=== PATIENT | male | born 1965 | race Caucasian/White ===

== ENCOUNTER → 2016-10-15 | Outpatient (CLI) | payer OTHER ==
[~2016-10-15] MED LIST: ALBUAER INH; ASPI325T39 PO; EPIN1INJ33 IM; GABA1CAP4 PO; LOSA50TA6 PO; LPR25 PO; LPT/20 PO; MORP1TAB11 PO; NCDT14 TD; OMEP20CA9 PO; OXY/15 PO; PRED20TA PO; SPRIN/30 INH; VLM5CL PO; VTMB12100 PO
[2016-10-15 09:37] LABS: ALT/SGPT 33 U/L (12-78); BLOOD UREA NITROGEN 12 mg/dl (7-18); BUN/CREATININE RATIO 12.9 (10-20); CALCIUM 8.6 mg/dl (8.5-10.1); CARBON DIOXIDE 28 mmol/L (21-32); CHLORIDE 105 mmol/L (98-107); CHOLESTEROL 172 mg/dl (0-200); CREATININE 0.95 mg/dl (0.60-1.40); GLUCOSE 110 mg/dl (70-99); POTASSIUM 4.3 mmol/L (3.5-5.1); SODIUM 140 mmol/L (136-145); TRIGLYCERIDES 156 mg/dl (0-150); VERY LOW DENSITY LIPOPROT CALC 31 mg/dl
[2016-10-15 09:40] LABS: ALB/GLOB RATIO 1.1 (0.9-2); ALKALINE PHOSPHATASE 81 U/L (45-117); AST/SGOT 16 U/L (15-37); CHOLESTEROL/HDL RATIO 3.4; HDL CHOLESTEROL 51 mg/dl; LDL CHOLESTEROL CALCULATED 90 mg/dl
== END | disposition home or self-care (01) ==
LOC: C.LAB1850 07:51
PROVIDERS: ATTEND Nurse Practitioner
DX: E78.00 Pure hypercholesterolemia, unspecified (principal)

== ENCOUNTER 2016-10-24 10:08 | Inpatient (IN) | payer OTHER ==
[~2016-10-24] VITALS: Ht 172.7 cm; Wt 80.9 kg
[~2016-10-24 10:08] MED LIST changes: -ALBUAER INH; -ASPI325T39 PO; -LOSA50TA6 PO; -LPR25 PO; -NCDT14 TD; -PRED20TA PO
[2016-10-24] MEDS ORDERED: LOSA50TA6 PO (10:58)
[2016-10-24] MEDS ORDERED: ASPI325T39 PO (10:59)
[2016-10-24 11:20] LABS: HEMATOCRIT 41.4 % (42-52); MEAN CELL VOLUME 88.5 fL (80-100); MEAN CORPUSCULAR HEMOGLOBIN 30.6 pg (25-34); MEAN CORPUSCULAR HGB CONC 34.5 g/dl (32-36); MEAN PLATELET VOLUME 9.5 fL (7.4-10.4); PLATELET COUNT 287 K/uL (130-400); RED BLOOD COUNT 4.68 M/uL (4.7-6.1); WHITE BLOOD COUNT 10.49 K/uL (4.8-10.8)
[2016-10-24 11:30] LABS: INR 0.9 (0.9-1.1); PROTHROMBIN TIME (PATIENT) 9.8 SECONDS (9.0-12.0)
[2016-10-24 11:38] LABS: BUN/CREATININE RATIO 19.3 (10-20); CALCIUM 9.3 mg/dl (8.5-10.1); CREATININE 0.85 mg/dl (0.60-1.40); POTASSIUM 3.7 mmol/L (3.5-5.1)
[2016-10-24 11:42] LABS: ALB/GLOB RATIO 1.2 (0.9-2); CKMB/CK RATIO 0.9 (0-3.0)
--- NOTE | 2016-10-24 11:49 | DIAGNOSTIC IMAGING REPORT ---
SINGLE VIEW CHEST CLINICAL HISTORY: Atypical chest pain. Dyspnea. FINDINGS: An AP, portable, upright chest radiograph is compared to study dated 10/04/2015. The cardiomediastinal silhouette is unremarkable. Linear atelectasis is present in the left lower lung. No airspace consolidation or pleural effusion is identified. No pneumothorax is seen. The bony thorax is grossly intact. IMPRESSION: No acute cardiopulmonary abnormality. Electronically signed by: Rio Laurent M.D. 10/24/2016 11:47 AM Dictated Date/Time: 10/24/2016 11:46 AM
[2016-10-24] MEDS: NITROGLYCERIN 0.4 MG SL PER TAB CHARGE SL PRN ×2 (12:10→12:27)
--- NOTE | 2016-10-24 12:56 | EMERGENCY ROOM VISIT NOTE ---
History Report prepared by Abraham: Mendez Cerda Under the Supervision of: Dr. Xavier De La Garza M.D. First contact with patient: 11:56 Chief Complaint: CHEST PAIN Stated Complaint: CHEST PAIN/HIGH BP Nursing Triage Summary: Patient states having mid chest pain. States pain does not radiate anywhere. C/ o SOB that increases with exertion and productive cough. History of Present Illness The patient is a 51 year old male who presents to the Emergency Room with complaints of waxing and waning chest pain for the past month. He presented to the ED today because the discomfort was more severe and wouldn't go away today. He also notes that he broke out into cold sweats because of the discomfort. The patient describes the discomfort as tightness and pressure. He notes that sometimes he has a sharp pain that radiates into his jaw. The discomfort is worth with exertion. The patient has a history of myocardial infarction and hypertension. He also notes that he has had Nitroglycerin in the past and it has helped relieved similar symptoms that he is experiencing currently. The patient also notes that he has been having frequent headaches that starts at the back of his head and moves up the back of his head for the past month. He denies radiation to his arms. Source of History: patient Onset: for the past month Position: chest Quality: pressure, other (tightness) Timing: waxes/wanes Modifying Factors (Worsening): exertion Associated Symptoms: + headache Note: Other associated symptoms: radiation to jaw, cold sweats Denies: radiation to arms Review of Systems All systems have been listed, reviewed, and are negative other than those previously mentioned. Please see Additional Medical History Sheet. Past Medical & Surgical Medical Problems: (1) Back pain (2) Hypertension (3) Lumbar radiculopathy Surgical Problems: (1) H/O cardiac catheterization Family History Heart disease Hypertension Social History Smoking Status: Current Every Day Smoker Marital Status: Housing Status: lives with family Occupation Status: unemployed Current/Historical Medications Scheduled Atorvastatin (Atorvastatin Calcium), 20 MG PO HS Cyanocobalamin (Vitamin B-12), 100 MCG PO DAILY Gabapentin (Gabapentin), 900 MG PO TID Losartan Potassium (Cozaar), 50 MG PO DAILY Morphine Sulfate (Morphine Sulfate Er), 15 MG PO Q12 Omeprazole (Prilosec), 20 MG PO BID Scheduled PRN Diazepam (Diazepam), 5 MG PO Q8 PRN for Muscle Spasm Epinephrine (Auvi-Q), 0.3 MG IM UD PRN for ALLERGIC REACTION Oxycodone Hcl (Oxycodone Hcl), 15 MG PO Q6H PRN for Pain Tiotropium [place] (Spiriva Handihaler), 1 PUFF INH DAILY PRN for Shortness of Breath Miscellaneous Medications Aspirin (Aspirin Ec), 325 MG PO Allergies Coded Allergies: BEE STING (Verified Allergy, Severe, PASSES OUT, 10/24/16) Naproxen (Verified Allergy, Intermediate, SEVERE RASH, 10/24/16) Tramadol (Verified Adverse Reaction, Intermediate, GI SYMPTOMS, 10/24/16) Physical Exam Vital Signs Date Time Temp Pulse Resp B/P Pulse Ox O2 Delivery O2 Flow Rate FiO2 10/24/16 14:00 105 18 129/85 93 Room Air 10/24/16 13:52 101 10/24/16 13:15 96 Room Air 10/24/16 12:01 93 17 134/104 96 Room Air 10/24/16 11:12 91 20 91 Room Air 10/24/16 11:11 91 Room Air 10/24/16 10:55 91 10/24/16 10:50 91 Room Air 10/24/16 10:16 36.8 97 20 153/101 94 Room Air Physical Exam GENERAL: Patient awake, alert, oriented x 3. Patient follows commands. Patient does not appear toxic. Patient is adequately hydrated and well- nourished. SKIN: No erythema, pallor, cyanosis or rash HEENT: Normal head, pupils equal, reactive to light and accommodation. Ears normal. Oral cavity and posterior pharynx appear normal. Neck: Without adenopathy, no neck vein distention. LUNGS: Clear to auscultation bilaterally. HEART: Tachycardic, regular rate. normal s1 and s2, no murmurs. ABDOMEN: No masses, no rebound, no hepatomegaly or splenomegaly. Soft and nontender. EXTREMITIES: No signs of trauma. No pedal or pretibial edema. No calf or thigh tenderness. NEUROLOGIC: Cranial nerves II-XII within normal limits. No gross motor sensory function deficits. Medical Decision & Procedures ER Provider Diagnostic Interpretation: X ray results are stated below per my interpretation and the radiologist's interpretation. SINGLE VIEW CHEST CLINICAL HISTORY: Atypical chest pain. Dyspnea. FINDINGS: An AP, portable, upright chest radiograph is compared to study dated 10/04/2015. The cardiomediastinal silhouette is unremarkable. Linear atelectasis is present in the left lower lung. No airspace consolidation or pleural effusion is identified. No pneumothorax is seen. The bony thorax is grossly intact. IMPRESSION: No acute cardiopulmonary abnormality. Electronically signed by: Rio Laurent M.D. 10/24/2016 11:47 AM Dictated Date/Time: 10/24/2016 11:46 AM Laboratory Results 10/24/16 10:52 10/24/16 10:52 Test 10/24/16 10:52 10/24/16 12:36 Red Blood Count 4.68 M/uL (4.7-6.1) Mean Corpuscular Volume 88.5 fL (80-100) Mean Corpuscular Hemoglobin 30.6 pg (25-34) Mean Corpuscular Hemoglobin Concent 34.5 g/dl (32-36) RDW Standard Deviation 41.9 fL (36.4-46.3) RDW Coefficient of Variation 13.0 % (11.5-14.5) Mean Platelet Volume 9.5 fL (7.4-10.4) Prothrombin Time 9.8 SECONDS (9.0-12.0) Prothromb Time International Ratio 0.9 (0.9-1.1) Activated Partial Thromboplast Time 27.1 SECONDS (21.0-31.0) Partial Thromboplastin Ratio 1.0 Anion Gap 11.0 mmol/L (3-11) Est Creatinine Clear Calc Drug Dose 106.5 ml/min Estimated GFR () 115.3 Estimated GFR (Non- 99.5 BUN/Creatinine Ratio 19.3 (10-20) Calcium Level 9.3 mg/dl (8.5-10.1) Total Bilirubin 0.3 mg/dl (0.2-1) Aspartate Amino Transf (AST/SGOT) 18 U/L (15-37) Alanine Aminotransferase (ALT/SGPT) 29 U/L (12-78) Alkaline Phosphatase 88 U/L (45-117) Total Creatine Kinase 78 U/L (39-308) Creatine Kinase MB 0.7 ng/ml (0.5-3.6) Creatine Kinase MB Ratio 0.9 (0-3.0) Total Protein 7.4 gm/dl (6.4-8.2) Albumin 4.0 gm/dl (3.4-5.0) Globulin 3.4 gm/dl (2.5-4.0) Albumin/Globulin Ratio 1.2 (0.9-2) Bedside Troponin I 0.010 ng/ml (0-0.045) Laboratory results as stated above per my review. Medications Administered Medications (Trade) Dose Ordered Sig/Susana Route Start Time Stop Time Status Last Admin Dose Admin Nitroglycerin (Nitrostat Tab) 0.4 mg PRN PRN SL 10/24/16 12:00 11/23/16 11:59 10/24/16 12:27 0.4 MG Nitroglycerin (Nitroglycerin 2% Oint) 2 inch Q6H EXT 10/24/16 13:00 11/23/16 12:59 10/24/16 13:24 2 INCH Heparin Sodium/ Dextrose (Heparin 25,000 Unit/500ml D5W) 25,000 unit STK-MED ONCE .ROUTE 10/24/16 14:21 10/24/16 14:23 DC 10/24/16 14:29 25,000 UNIT Heparin Sodium (Porcine) (Heparin Sq 5000 Unit/0.5ml) 10,000 unit STK-MED ONCE .ROUTE 10/24/16 14:22 10/24/16 14:23 DC 10/24/16 14:26 6,000 UNIT ECG Indication: chest pain Rate (beats per minute): 94 Rhythm: normal sinus Findings: no acute ischemic change, no ectopy ED Course 1156: Past medical records reviewed. The patient was evaluated in room C8. A complete history and physical examination was performed. 1200: Ordered Nitroglycerin 0.4 mg SL/Chest Pain. 1230: At this time, I reevaluated the patient and he was feeling better after having the medication. 1300: Ordered Nitroglycerin 2 inch EXT. 1257: At this time, I discussed the patient's case with Dr. Mccauley- Hospitalist [facility] and he agreed to accept the patient for further evaluation. Medical Decision I considered multiple diagnoses including myocardial infarction, chest wall pain , pericarditis, myocarditis, aortic emergencies, pulmonary embolism, congestive heart failure, GI causes, and other significant cardiopulmonary disorders. The patient is a prior history of myocardial infarction. He is now here with substernal chest pain radiating to his right jaw. This seems to be related to exertion. He got some relief with nitroglycerin. The patient was given additional nitroglycerin here. Multiple labs, EKG and imaging were obtained. I discussed care with the patient and with the hospitalist. The patient will require further evaluation in the hospital. Consults Time Called: 1252 Consulting Physician: Dr. Mccauley- Hospitalist [facility] [place] Returned Call: [phone] At this time, I discussed the patient's case with Dr. Mccauley and he agreed to accept the patient for further evaluation. Impression Primary Impression: Acute coronary syndrome Scribe Attestation The scribe's documentation has been prepared under my direction and personally reviewed by me in its entirety. I confirm that the note above accurately reflects all work, treatment, procedures, and medical decision making performed by me. Departure Information Dispostion Being Evaluated By Hospitalist Referrals Mansoor Zhao M.D. (PCP)
[2016-10-24] MEDS ORDERED: NITROGLYCERIN OINT 2% 1GM PACKET EXT SCH (13:00)
[2016-10-24 13:15] VITALS: BP 100/64; PULSE 98; TEMP 36.6; O2SAT 96; Ht 172.7 cm; Wt 80.9 kg
[2016-10-24] MEDS ORDERED: NITROGLYCERIN OINT 2% 1GM PACKET ONE (13:21)
[2016-10-24] MEDS ORDERED: HEPARIN SOD 5000 UNIT/0.5 ML CARP SQ SCH (14:00)
[2016-10-24] MEDS: GABAPENTIN 300 MG CAP PO SCH ×2 (14:00→20:54)
[2016-10-24] MEDS ORDERED: ACETAMINOPHEN 325 MG TAB PO PRN (14:00)
[2016-10-24] MEDS ORDERED: TIOTROPIUM BROMIDE 5 PUFF/90 MCG INH INH PRN (14:00)
[2016-10-24] MEDS ORDERED: POLYETHYLENE (MIRALAX) 17 GM PACK PO PRN (14:00)
[2016-10-24] MEDS ORDERED: ONDANSETRON INJ 2 MG/ML 2 ML VIAL IV PRN (14:00)
[2016-10-24] MEDS ORDERED: MoRPHine SULFATE 2 MG/ML CARP IV PRN (14:00)
[2016-10-24] MEDS ORDERED: HEPARIN 25000 UNIT/500 ML D5W ONE (14:21)
[2016-10-24] MEDS ORDERED: HEPARIN SOD 5000 UNIT/0.5 ML CARP ONE (14:22)
--- NOTE | 2016-10-24 14:39 | History and Physical ---
History & Physical Date & Time of Service: Oct 24, 2016 at 13:07 Chief Complaint: Chest Pain/High Bp Primary Care Physician: Mansoor Zhao M.D. History of Present Illness Source: patient This is a 51 yo M with PMHx HTN, hyperlipidemia, supraventricular tachycardia, N -STEMI COPD, GERD, diverticulosis,insomnia, SAUL, s/p C3-C6 laminectomy by Dr. Metcalf in January 2016 who presents with chest pain which started at 0300 once he was awake. Pt woke up this early to take his to work. He reports while driving home he developed chest pain, substernally which was sharp and constant in nature, radiating to the right side of his jaw. He took a full dose aspirin and his other medications, and pain only slightly resolved. 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 The patient presented to the ED after pain did not resolve. He has a strong family history of cardiac events; father at age 37 from [place] , he had two uncles who both of [place], one in early 40s and the other in his early 60s. His brother has had 5 heart attacks, still living, and is two years older than him. He smokes 3/4 pack per day for 30 years and previously chewed tobacco. He denies exercising at all. In the ED pt received 2" nitropaste, troponin 1st set was negative, EKG was done and was in NSR without ST or ischemic changes. Past Medical/Surgical History Medical Problems: (1) Back pain Status: Chronic (2) Hypertension Status: Chronic (3) Lumbar radiculopathy Status: Resolved Surgical Problems: (1) H/O cardiac catheterization Status: Chronic Family History Heart disease Hypertension Social History Smoking Status: Current Every Day Smoker Smokeless Tobacco Use: Yes Alcohol Use: none Drug Use: none Marital Status: Housing status: lives with family Occupational Status: unemployed Immunizations History of Influenza Vaccine: Yes History of Tetanus Vaccine?: Yes Tetanus Immunization Date: Apr 05, 2006 History of Pneumococcal: Yes History of Hepatitis B Vaccine: No Multi-Drug Resistant Organisms History of MDRO: No Allergies Coded Allergies: BEE STING (Verified Allergy, Severe, PASSES OUT, 10/24/16) Naproxen (Verified Allergy, Intermediate, SEVERE RASH, 10/24/16) Tramadol (Verified Adverse Reaction, Intermediate, GI SYMPTOMS, 10/24/16) Home Medications Scheduled Atorvastatin (Atorvastatin Calcium), 20 MG PO HS Cyanocobalamin (Vitamin B-12), 100 MCG PO DAILY Gabapentin (Gabapentin), 900 MG PO TID Losartan Potassium (Cozaar), 50 MG PO DAILY Morphine Sulfate (Morphine Sulfate Er), 15 MG PO Q12 Omeprazole (Prilosec), 20 MG PO BID Scheduled PRN Diazepam (Diazepam), 5 MG PO Q8 PRN for Muscle Spasm Epinephrine (Auvi-Q), 0.3 MG IM UD PRN for ALLERGIC REACTION Oxycodone Hcl (Oxycodone Hcl), 15 MG PO Q6H PRN for Pain Tiotropium [place] (Spiriva Handihaler), 1 PUFF INH DAILY PRN for Shortness of Breath Miscellaneous Medications Aspirin (Aspirin Ec), 325 MG PO Review of Systems Chronic Back Pain, lumbar and cervical Constitutional: No chills, No fever, No sweats Eyes: No diplopia ENT: No sore throat, No tinnitus Respiratory: + cough, + dyspnea on exertion, No dyspnea at rest, No sputum Cardiovascular: + chest pain, + problem reported (Hx prolapsed mitral valve), No palpitations Abdomen: No constipation, No diarrhea, No nausea, No pain, No vomiting Musculoskeletal: No calf pain, No joint pain, No muscle pain Genitourinary - Male: No dysuria Endocrine: No fatigue Integumentary: No itch, No rash Allergic / Immunologic: + problem reported (Previous NC was induced secondary to epinephrine IV because of bee sting(anaphalactic rx) he sustained in 2013) Physical Exam Vital Signs Date Time Temp Pulse Resp B/P Pulse Ox O2 Delivery O2 Flow Rate FiO2 10/24/16 12:01 93 17 134/104 96 Room Air 10/24/16 11:12 91 20 91 Room Air 10/24/16 11:11 91 Room Air 10/24/16 10:55 91 10/24/16 10:50 91 Room Air 10/24/16 10:16 36.8 97 20 153/101 94 Room Air General Appearance: WD/WN, no apparent distress, + pertinent finding (smells of tobacco smoke) Head: normocephalic, atraumatic Eyes: PERRL, EOMI ENT: hearing grossly normal, pharynx normal Neck: supple, no JVD, no carotid bruits Respiratory/Chest: chest non-tender, no respiratory distress, no accessory muscle use, + pertinent finding (+ expiratory wheezing, +tight breath sounds throughout. No rhales or rhonchi.) Cardiovascular: no JVD, normal peripheral pulses, + tachycardia Abdomen/GI: normal bowel sounds, non tender, soft Back: no muscle spasm, + pertinent finding (scar over cervical vertebrae, no point tenderness. ) Extremities/Musculoskelatal: no calf tenderness, no pedal edema Neurologic/Psych: alert, normal mood/affect, oriented x 3 Skin: normal color, warm/dry Diagnostics Laboratory Results Results Past 24 Hours Test 10/24/16 10:52 10/24/16 11:20 10/24/16 12:36 Range/Units White Blood Count 10.49 4.8-10.8 K/uL Red Blood Count 4.68 4.7-6.1 M/uL Hemoglobin 14.3 14.0-18.0 g/dL Hematocrit 41.4 42-52 % Mean Corpuscular Volume 88.5 80-100 fL Mean Corpuscular Hemoglobin 30.6 25-34 pg Mean Corpuscular Hemoglobin Concent 34.5 32-36 g/dl RDW Standard Deviation 41.9 36.4-46.3 fL RDW Coefficient of Variation 13.0 11.5-14.5 % Platelet Count 287 130-400 K/uL Mean Platelet Volume 9.5 7.4-10.4 fL Prothrombin Time 9.8 9.0-12.0 SECONDS Prothromb Time International Ratio 0.9 0.9-1.1 Activated Partial Thromboplast Time 27.1 21.0-31.0 SECONDS Partial Thromboplastin Ratio 1.0 Sodium Level 142 136-145 mmol/L Potassium Level 3.7 3.5-5.1 mmol/L Chloride Level 107 98-107 mmol/L Carbon Dioxide Level 24 21-32 mmol/L Anion Gap 11.0 3-11 mmol/L Blood Urea Nitrogen 16 7-18 mg/dl Creatinine 0.85 0.60-1.40 mg/dl Est Creatinine Clear Calc Drug Dose 106.5 ml/min Estimated GFR () 115.3 Estimated GFR (Non- 99.5 BUN/Creatinine Ratio 19.3 10-20 Random Glucose 84 70-99 mg/dl Calcium Level 9.3 8.5-10.1 mg/dl Total Bilirubin 0.3 0.2-1 mg/dl Aspartate Amino Transf (AST/SGOT) 18 15-37 U/L Alanine Aminotransferase (ALT/SGPT) 29 12-78 U/L Alkaline Phosphatase 88 45-117 U/L Total Creatine Kinase 78 39-308 U/L Creatine Kinase MB 0.7 0.5-3.6 ng/ml Creatine Kinase MB Ratio 0.9 0-3.0 Total Protein 7.4 6.4-8.2 gm/dl Albumin 4.0 3.4-5.0 gm/dl Globulin 3.4 2.5-4.0 gm/dl Albumin/Globulin Ratio 1.2 0.9-2 Bedside Troponin I 0.010 0.010 0-0.045 ng/ml Diagnostic Radiology SINGLE VIEW CHEST CLINICAL HISTORY: Atypical chest pain. Dyspnea. FINDINGS: An AP, portable, upright chest radiograph is compared to study dated 10/04/2015. The cardiomediastinal silhouette is unremarkable. Linear atelectasis is present in the left lower lung. No airspace consolidation or pleural effusion is identified. No pneumothorax is seen. The bony thorax is grossly intact. IMPRESSION: No acute cardiopulmonary abnormality. Electronically signed by: Rio Laurent M.D. 10/24/2016 11:47 AM Dictated Date/Time: 10/24/2016 11:46 AM CXR normal EKG EKG normal without ST wave inversions or ischemic changes.: Vent. rate 94 BPM WA interval 154 ms QRS duration 110 ms QT/QTc 370/462 ms P-R-T axes 32 41 42 Impression Assessment and Plan This is a 51 yo M with PMHx HTN, hyperlipidemia, supraventricular tachycardia, N -STEMI COPD, GERD, diverticulosis,insomnia, SAUL, s/p C3-C6 laminectomy by Dr. Metcalf in January 2016 who presents with chest pain which started at 0300. Chest pain, HTN, Previous NSTEMI 2013, congenital prolapsed mitral valve - Admit to telemetry - Consulted cardiology for recommendations - planned for cardiac cath tomorrow, NPO after 2400 except meds - Trend troponin and CKMB - 1 set was negative- next draw scheduled at 2029, then will obtain with morning labs tomorrow. 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 Y/N: Yes Given or contraindicated: Other Anticoagulation, T.E.D. Stockings Reviewed: Pt Seen/Exam by Me, RN Notes, HO Notes, Prior Records, Labs History I agree with PA H&P with some modifications as below a 51 yo M with PMHx HTN, hyperlipidemia, supraventricular tachycardia, N-STEMI COPD, GERD, diverticulosis,insomnia, SAUL, s/p C3-C6 laminectomy by Dr. Metcalf in January 2016 who presents with chest pain which started at 0300 and only relieved with 2 SL nitros. Fam Hx: father [place] at 35 yo. Constitutional: denies: chills EENTM: denies: tearing Cardiovascular: denies chest pain Genitourinary: negative discharge Musculoskeletal: negative: back pain Skin: negative: change in color Neurological/Psych: negative: anxiety Hematologic/Lymphatic: negative: anemia General Appearance: WD/WN, no apparent distress Eye Exam: bilateral eye normal inspection Ears, Nose, Throat: hearing grossly normal, pharynx normal Neck: non-tender, supple Respiratory: chest non-tender, lungs clear, respiratory distress Cardiovascular: normal peripheral pulses, no gallop Gastrointestinal: normal bowel sounds, soft Extremities: normal range of motion, no pedal edema Neurologic/Psychiatric: alert, normal mood/affect Skin Characteristics: normal color Assessment/Plan a 51 yo M with PMHx HTN, hyperlipidemia, supraventricular tachycardia, N-STEMI COPD, GERD, diverticulosis,insomnia, SAUL, s/p C3-C6 laminectomy by Dr. Metcalf in January 2016 who presents with chest pain which started at 0300. Chest pain, angina HTN, Previous NSTEMI 2013, congenital prolapsed mitral valve agree with telemetry Consulted cardiology for recommendations - planned for cardiac cath tomorrow, NPO after 2400 except meds check troponin and CKMB - 1 set was negative- next draw scheduled at 2029, then will obtain with morning labs tomorrow. 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
[2016-10-24] MEDS: METOPROLOL TARTRATE 25 MG TAB PO SCH ×2 (16:36→20:54)
[2016-10-24] MEDS: NICOTINE 14 MG/24 HR TDSY TD SCH (18:58)
[2016-10-24] MEDS: OXYCODONE HCL IR 5 MG TAB (IMMEDIATE RELEASE) PO PRN (18:58)
[2016-10-24 19:50] VITALS: BP 103/61; PULSE 80; TEMP 36.6; O2SAT 92
[2016-10-24 20:00] VITALS: O2SAT 92
[2016-10-24] MEDS: MoRPHine SULFATE CR 15 MG TAB (MS CONTIN) PO SCH (20:53)
[2016-10-24] MEDS: PANTOprazole SOD 40 MG TAB PO SCH (20:54)
[2016-10-24] MEDS: ATORVASTATIN 20 MG TAB PO SCH (20:54)
[2016-10-24 21:23] LABS: PARTIAL THROMBOPLASTIN RATIO 1.7
[2016-10-24] MEDS: HEPARIN 25,000 UNIT/500ML D5W 500 ML IV PRN (21:44)
[2016-10-24] MEDS ORDERED: HEPARIN IV BOLUS 3,000 UNIT in SYRINGE 0 ML IV STA (22:03)
[2016-10-24 23:59] VITALS: O2SAT 92
[2016-10-25] VITALS (12 sets, daily range): BP systolic 100–145; BP diastolic 61–91; PULSE 74–100; TEMP 36.4–37.1; O2SAT 90–94
[2016-10-25] MEDS: NITROGLYCERIN 0.4 MG SL PER TAB CHARGE SL PRN ×2 (00:05→00:29)
[2016-10-25] MEDS ORDERED: NURSING VERBAL MED ORDER ONE ×2 (00:30→11:00)
[2016-10-25] MEDS ORDERED: NITROGLYCERIN OINT 2% 1GM PACKET EXT STA (00:32)
[2016-10-25 03:58] LABS: BASO % 0.3 %; BASO ABS # 0.04 K/uL (0-0.2); COMPLETE YES; EOS % 5.3 %; HEMATOCRIT 39.8 % (42-52); IG% 0.3 %; LYMPH % 38.2 %; LYMPH ABS # 4.42 K/uL (1.2-3.4); MEAN CELL VOLUME 89.8 fL (80-100); MEAN CORPUSCULAR HEMOGLOBIN 30.7 pg (25-34); MEAN CORPUSCULAR HGB CONC 34.2 g/dl (32-36); MEAN PLATELET VOLUME 9.4 fL (7.4-10.4); MONO % 7.9 %; PLATELET COUNT 266 K/uL (130-400); RED BLOOD COUNT 4.43 M/uL (4.7-6.1); WHITE BLOOD COUNT 11.58 K/uL (4.8-10.8)
[2016-10-25 04:15] LABS: BLOOD UREA NITROGEN 22 mg/dl (7-18); BUN/CREATININE RATIO 19.8 (10-20); CALCIUM 8.6 mg/dl (8.5-10.1); CARBON DIOXIDE 26 mmol/L (21-32); CHLORIDE 107 mmol/L (98-107); GLUCOSE 109 mg/dl (70-99); POTASSIUM 4.1 mmol/L (3.5-5.1); SODIUM 142 mmol/L (136-145)
[2016-10-25 04:17] LABS: PARTIAL THROMBOPLASTIN RATIO 1.9
[2016-10-25 04:20] LABS: CHOLESTEROL 144 mg/dl (0-200); CHOLESTEROL/HDL RATIO 2.9; HDL CHOLESTEROL 49 mg/dl; LDL CHOLESTEROL CALCULATED 67 mg/dl; TRIGLYCERIDES 139 mg/dl (0-150); VERY LOW DENSITY LIPOPROT CALC 28 mg/dl
[2016-10-25] MEDS: HEPARIN 25,000 UNIT/500ML D5W 500 ML IV PRN (04:33)
[2016-10-25] MEDS: OXYCODONE HCL IR 5 MG TAB (IMMEDIATE RELEASE) PO PRN ×3 (05:36→18:38)
[2016-10-25] MEDS: NITROGLYCERIN OINT 2% 1GM PACKET EXT SCH ×3 (05:39→18:45)
[2016-10-25] MEDS: PANTOprazole SOD 40 MG TAB PO SCH ×2 (08:27→21:18)
[2016-10-25] MEDS: LOSARTAN POTASSIUM 50 MG TAB PO SCH (08:28)
[2016-10-25] MEDS: METOPROLOL TARTRATE 25 MG TAB PO SCH ×2 (08:28→21:16)
[2016-10-25] MEDS: ASPIRIN 325 MG ECTAB PO SCH (08:28)
[2016-10-25] MEDS: GABAPENTIN 300 MG CAP PO SCH ×3 (08:29→21:16)
[2016-10-25] MEDS: MoRPHine SULFATE CR 15 MG TAB (MS CONTIN) PO SCH ×2 (08:34→21:16)
--- NOTE | 2016-10-25 10:53 | Hospitalist Progress Note ---
Hospitalist Progress Note Date of Service Oct 25, 2016. (Charmaine Jenkins PA-C) 10/25/16 agree with PA note patient went to stress test this am (Abdirashid Mccauley MD) Subjective Pt evaluation today including: conversation w/ patient, physical exam, chart review, lab review, review of studies, review of inpatient medication list Pain: None PO Intake: NPO Voiding: no voiding problems Pt was seen and examined this morning. His and mother are at bedside this morning. He is doing ok, appears slightly anxious. He denies chest pain, shortness of breath, palpitations, lighteadedness or dizziness overnight. He has not been up walking around much so is unsure if he becomes sob on exertion. Plan for cardiac cath today. Constitutional: No chills, No fever, No sweats Eyes: No diplopia ENT: No nasal symptoms, No sore throat Respiratory: No cough, No shortness of breath, No wheezing Cardiovascular: No chest pain, No edema, No orthopnea, No palpitations Abdomen: No constipation, No diarrhea, No nausea, No pain, No vomiting Musculoskeletal: No calf pain, No joint pain, No swelling Neurologic: No numbness/tingling, No weakness Endo: No fatigue Skin: No rash (Charmaine Jenkins PA-C) Pt evaluation today including: conversation w/ patient, physical exam, chart review, review of studies, review of inpatient medication list Constitutional: No fever ENT: No hearing loss Respiratory: + dyspnea on exertion, No cough Cardiovascular: No chest pain Abdomen: No pain Male : No dysuria Neurologic: No memory loss Psychiatric: No depression symptoms Endo: No fatigue (Abdirashid Mccauley MD) Objective Vital Signs Date Time Temp Pulse Resp B/P Pulse Ox O2 Delivery O2 Flow Rate FiO2 10/25/16 05:41 36.9 85 19 114/66 94 Nasal Cannula 2.0 10/25/16 04:36 36.9 85 19 114/66 94 Nasal Cannula 2.0 10/25/16 04:00 92 Room Air 10/25/16 00:00 36.7 83 19 120/65 93 Nasal Cannula 2.0 10/24/16 23:59 92 Room Air 10/24/16 20:00 92 Room Air 10/24/16 19:50 36.6 80 18 103/61 92 Room Air 10/24/16 16:30 110 20 127/69 98 Room Air 10/24/16 14:00 105 18 129/85 93 Room Air 10/24/16 13:52 101 10/24/16 13:15 36.6 98 16 100/64 96 Room Air 10/24/16 12:01 93 17 134/104 96 Room Air 10/24/16 11:12 91 20 91 Room Air 10/24/16 11:11 91 Room Air 10/24/16 10:55 91 10/24/16 10:50 91 Room Air 10/24/16 10:16 36.8 97 20 153/101 94 Room Air (Charmaine Jenkins PA-C) Physical Exam General Appearance: WD/WN, no apparent distress Eyes: PERRL, EOMI ENT: hearing grossly normal, pharynx normal Neck: no JVD Respiratory/Chest: chest non-tender, no respiratory distress, no accessory muscle use, + wheezing (expiratory and inspiratory throughout) Cardiovascular: regular rate, rhythm, no murmur Abdomen: normal bowel sounds, non tender, soft Extremities: no pedal edema, no calf tenderness Neurologic/Psychiatric: alert, normal mood/affect, oriented x 3 Skin: normal color, warm/dry (Charmaine Jenkins PA-C) General Appearance: WD/WN, no apparent distress Eyes: normal inspection, EOMI ENT: hearing grossly normal, pharynx normal Neck: supple Respiratory/Chest: chest non-tender, + wheezing Cardiovascular: regular rate, rhythm, no gallop Abdomen: normal bowel sounds, soft Extremities: non-tender, normal inspection Neurologic/Psychiatric: no motor/sensory deficits, alert, normal mood/affect (Abdirashid Mccauley MD) Laboratory Results Last 24 Hours Test 10/24/16 10:52 10/24/16 11:20 10/24/16 12:36 10/24/16 20:30 White Blood Count 10.49 K/uL Red Blood Count 4.68 M/uL Hemoglobin 14.3 g/dL Hematocrit 41.4 % Mean Corpuscular Volume 88.5 fL Mean Corpuscular Hemoglobin 30.6 pg Mean Corpuscular Hemoglobin Concent 34.5 g/dl RDW Standard Deviation 41.9 fL RDW Coefficient of Variation 13.0 % Platelet Count 287 K/uL Mean Platelet Volume 9.5 fL Prothrombin Time 9.8 SECONDS Prothromb Time International Ratio 0.9 Activated Partial Thromboplast Time 27.1 SECONDS Partial Thromboplastin Ratio 1.0 Sodium Level 142 mmol/L Potassium Level 3.7 mmol/L Chloride Level 107 mmol/L Carbon Dioxide Level 24 mmol/L Anion Gap 11.0 mmol/L Blood Urea Nitrogen 16 mg/dl Creatinine 0.85 mg/dl Est Creatinine Clear Calc Drug Dose 106.5 ml/min Estimated GFR () 115.3 Estimated GFR (Non- 99.5 BUN/Creatinine Ratio 19.3 Random Glucose 84 mg/dl Calcium Level 9.3 mg/dl Total Bilirubin 0.3 mg/dl Aspartate Amino Transf (AST/SGOT) 18 U/L Alanine Aminotransferase (ALT/SGPT) 29 U/L Alkaline Phosphatase 88 U/L Total Creatine Kinase 78 U/L Creatine Kinase MB 0.7 ng/ml Creatine Kinase MB Ratio 0.9 Total Protein 7.4 gm/dl Albumin 4.0 gm/dl Globulin 3.4 gm/dl Albumin/Globulin Ratio 1.2 Bedside Troponin I 0.010 ng/ml 0.010 ng/ml Test 10/24/16 20:35 10/25/16 03:44 Activated Partial Thromboplast Time 43.6 SECONDS 49.3 SECONDS Partial Thromboplastin Ratio 1.7 1.9 Creatine Kinase MB 0.6 ng/ml 0.5 ng/ml Troponin I < 0.015 ng/ml < 0.015 ng/ml White Blood Count 11.58 K/uL Red Blood Count 4.43 M/uL Hemoglobin 13.6 g/dL Hematocrit 39.8 % Mean Corpuscular Volume 89.8 fL Mean Corpuscular Hemoglobin 30.7 pg Mean Corpuscular Hemoglobin Concent 34.2 g/dl Platelet Count 266 K/uL Mean Platelet Volume 9.4 fL Neutrophils (%) (Auto) 48.0 % Lymphocytes (%) (Auto) 38.2 % Monocytes (%) (Auto) 7.9 % Eosinophils (%) (Auto) 5.3 % Basophils (%) (Auto) 0.3 % Neutrophils # (Auto) 5.55 K/uL Lymphocytes # (Auto) 4.42 K/uL Monocytes # (Auto) 0.92 K/uL Eosinophils # (Auto) 0.61 K/uL Basophils # (Auto) 0.04 K/uL RDW Standard Deviation 43.7 fL RDW Coefficient of Variation 13.3 % Immature Granulocyte % (Auto) 0.3 % Immature Granulocyte # (Auto) 0.04 K/uL Sodium Level 142 mmol/L Potassium Level 4.1 mmol/L Chloride Level 107 mmol/L Carbon Dioxide Level 26 mmol/L Anion Gap 9.0 mmol/L Blood Urea Nitrogen 22 mg/dl Creatinine 1.10 mg/dl Est Creatinine Clear Calc Drug Dose 82.3 ml/min Estimated GFR () 88.4 Estimated GFR (Non- 76.2 BUN/Creatinine Ratio 19.8 Random Glucose 109 mg/dl Calcium Level 8.6 mg/dl Creatine Kinase MB Ratio Triglycerides Level 139 mg/dl Cholesterol Level 144 mg/dl HDL Cholesterol 49 mg/dl LDL Cholesterol, Calculated 67 mg/dl VLDL Cholesterol, Calculated 28 mg/dl Cholesterol/HDL Ratio 2.9 (Charmaine Jenkins, PAJackyC) Assessment and Plan This is a 51 yo M with PMHx HTN, hyperlipidemia, supraventricular tachycardia, N -STEMI COPD, GERD, diverticulosis,insomnia, SAUL, s/p C3-C6 laminectomy by Dr. Metcalf in January 2016 who presents with chest pain which started at 0300. Chest pain HTN, Previous NSTEMI 2013, congenital prolapsed mitral valve - Admit to telemetry - Consulted cardiology for recommendations - planned for cardiac cath today, NPO after 2400 except meds - Trend troponin and CKMB - consecutive sets were all negative - Cont heparin gtt with bolus - Nitro past 2" applied in the ED, cont prn - Last stress test was done in December 2014 which was normal - ECHO completed this morning- awaiting results. - Morphine sulfate IV prn chest pain - Continue metoprolol 12.5 BID - worked well to reduce BP and HR. 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 Metcalf in January 2016 who presents with chest pain which started at 0300. 1. Chest pain with hx HTN, Previous NSTEMI 2013, congenital prolapsed mitral valve, likely secondary to pulmonary causes (smoking, COPD) troponin and CKMB are normal, consecutive sets were all negative stress test and echo done today and were unremarkable, no cardiac cath is planned stop heparin gtt with bolus Nitro past 2" applied in the ED, cont prn Last stress test was done in December 2014 which was normal Morphine sulfate IV prn chest pain Continue metoprolol 12.5 BID - worked well to reduce BP and HR. Continue losartan at this time 2. 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
[2016-10-25] MEDS ORDERED: ALBUT/IPRATROP 3MG/0.5MG NEB 3 ML VIAL INH PRN (12:00)
[2016-10-25] MEDS ORDERED: ATROPINE SULFATE 0.1 MG/ML 5ML SYR ONE (12:46)
[2016-10-25] MEDS ORDERED: METOPROLOL TARTRATE 1 MG/ML VIAL ONE (12:46)
[2016-10-25] MEDS ORDERED: DOBUTamine HCL 12.5 MG/ML 20 ML VIAL ONE (12:46)
--- NOTE | 2016-10-25 13:01 | ECHOCARDIOGRAM REPORT ---
*NOTICE TO RECEIVING [employer] This information is strictly Confidential and protected under [place] law. [place] law prohibits you from making any further disclosure of this information unless further disclosure is expressly permitted by the written consent of the person to whom it pertains or is authorized by law. A general authorization for the release of medical or other information is not sufficient for this purpose. Hospital accepts no responsibility if the information is made available to any other person, INCLUDING THE PATIENT. Interpretation Summary * Name: LUCIAN HAMPTON Study Date: 10/25/2016 06:37 AM BP: 114/66 mmHg * Patient Location: C.2E\[id number]\E212\S\1 HR: 85 * : 1965 (M/d/yyyy) Gender: Male Height: 68 in * Age: 51 yrs Ethnicity: [place] Weight: 186 lb * Ordering Physician: Charmaine Jenkins * Referring Physician: Self, Referred * Performed By: Ana Hudson RDCS * * Reason For Study: CHEST PAIN * BSA: 2.0 m2 * History: CHEST PAIN * Normal biventricular systolic function. * Normal chamber dimensions. * Mild concentric left ventricular hypertrophy. * Left ventricular diastolic dysfunction. * No significant valvular abnormalities. Procedure Details * A complete two-dimensional transthoracic echocardiogram was performed (2D, M-mode, Doppler and color flow Doppler). Left Ventricle * The left ventricle is normal in size. * There is mild concentric left ventricular hypertrophy. * Ejection Fraction = 55-60%. * A full diastolic examination was done with clinical findings of Class I diastolic dysfunction. * The left ventricular wall motion is normal. Right Ventricle * The right ventricle is normal in size and function. Atria * The left atrial size is normal. * Right atrial size is normal. * There is no evidence of atrial septal defect, but resolution does not allow assessment for a patent foramen ovale. Mitral Valve * The mitral valve is normal. * There is trace mitral regurgitation. Tricuspid Valve * The tricuspid valve is normal. * There is trace tricuspid regurgitation. Aortic Valve * The aortic valve is trileaflet. * The aortic valve opens well. * No aortic regurgitation is present. Pulmonic Valve * The pulmonic valve is not well visualized. * There is no pulmonic valvular regurgitation. Great Vessels * The aortic root is normal size. Pericardium/Pleural * There is no pericardial effusion. Great Vessels * Normal inferior vena cava diameter and respiratory variation suggests normal central venous pressure. MMode 2D Measurements and Calculations IVSd 1.2 cm IVSs 1.3 cm LVIDd 4.4 cm LVIDs 3.1 cm LVPWd 1.2 cm LVPWs 1.8 cm IVS/LVPW 0.95 FS 28.1 % EDV(Teich) 86.8 ml ESV(Teich) 39.4 ml EF(Teich) 54.6 % EDV(cubed) 84.1 ml ESV(cubed) 31.2 ml EF(cubed) 62.8 % % IVS thick 11.2 % % LVPW thick 43.7 % LV mass(C)d 188.0 grams LV mass(C)dI 94.9 grams/m\S\2 LV mass(C)s 172.5 grams LV mass(C)sI 87.1 grams/m\S\2 SV(Teich) 47.4 ml SI(Teich) 23.9 ml/m\S\2 SV(cubed) 52.8 ml SI(cubed) 26.6 ml/m\S\2 Ao root diam 3.4 cm Ao root area 9.1 cm\S\2 LA dimension 2.9 cm LA/Ao 0.86 LVAd ap4 32.3 cm\S\2 LVLd ap4 8.7 cm EDV(MOD-sp4) 98.3 ml EDV(sp4-el) 102.3 ml LVAs ap4 20.3 cm\S\2 LVLs ap4 7.3 cm ESV(MOD-sp4) 46.6 ml ESV(sp4-el) 47.8 ml EF(MOD-sp4) 52.6 % EF(sp4-el) 53.3 % LVAd ap2 30.2 cm\S\2 LVLd ap2 8.7 cm EDV(MOD-sp2) 89.9 ml EDV(sp2-el) 89.2 ml LVAs ap2 18.3 cm\S\2 LVLs ap2 7.1 cm ESV(MOD-sp2) 40.3 ml ESV(sp2-el) 40.2 ml EF(MOD-sp2) 55.1 % EF(sp2-el) 54.9 % LVLd %diff 0.40 % EDV(MOD-bp) 93.4 ml LVLs %diff -3.39 % ESV(MOD-bp) 44.0 ml EF(MOD-bp) 52.9 % SV(MOD-sp4) 51.7 ml SI(MOD-sp4) 26.1 ml/m\S\2 SV(MOD-sp2) 49.6 ml SI(MOD-sp2) 25.0 ml/m\S\2 SV(MOD-bp) 49.4 ml SI(MOD-bp) 24.9 ml/m\S\2 SV(sp4-el) 54.5 ml SI(sp4-el) 27.5 ml/m\S\2 SV(sp2-el) 49.0 ml SI(sp2-el) 24.7 ml/m\S\2 Doppler Measurements and Calculations MV E max adrian 53.2 cm/sec MV A max adrian 67.5 cm/sec MV E/A 0.79 MV dec time 0.33 sec Ao V2 max 107.7 cm/sec Ao max PG 4.6 mmHg Ao max PG (full) 1.6 mmHg LV V1 max PG 3.0 mmHg LV V1 max 87.1 cm/sec
[2016-10-25] MEDS ORDERED: PERFLUTREN LIPID MICROSPHERE (DEFINITY) IV ONE (13:57)
[2016-10-25] MEDS: METHYLPREDNISOLONE IV 40 MG in SYRINGE 0 ML IV SCH ×2 (14:56→22:12)
--- NOTE | 2016-10-25 15:11 | DOBUTAMINE ECHO ---
*NOTICE TO RECEIVING [employer] This information is strictly Confidential and protected under [place] law. [place] law prohibits you from making any further disclosure of this information unless further disclosure is expressly permitted by the written consent of the person to whom it pertains or is authorized by law. A general authorization for the release of medical or other information is not sufficient for this purpose. Hospital accepts no responsibility if the information is made available to any other person, INCLUDING THE PATIENT. Interpretation Summary * Name: LUCIAN HAMPTON Study Date: 10/25/2016 12:36 PM BP: 110/58 mmHg * Patient Location: [facility] [place] HR: 80 * : 1965 (M/d/yyyy) Gender: Male Height: 67 in * Age: 51 yrs Ethnicity: [place] Weight: 178 lb * Ordering Physician: Quincy Muñoz MD, [facility] * Performed By: Nicolette Jasmine RDCS * * Reason For Study: Chest Pain * BSA: 1.9 m2 * STRESS STUDY: Normal pharmacologic stress echocardiogram. No echocardiographic or ECG evidence of myocardial ischemia having achieved heart rate adequate for diagnostic purposes. Procedure Details * ECHOEX, CPT #58589 * ECHO DOPPLER, CPT #[id number] * ECHO COLOR FLOW, CPT #[id number] * A contrast injection of Definity was performed to improve assessment of LV function. * Contrast was injected into an intravenous site in the right arm. * One vial of Definity ultrasound contrast was diluted in normal saline to a total volume of 10 ml. A total of '2' ml of solution was administered during imaging. * Lot # [id number] of Definity utilized for procedure. * Expiration date . * The attending nurse who injected the contrast agent was Pratibha Chow RN. * The patient complained of chest pressure at peak dobutamine. This resolved after administration of intravenous metoprolol and decrease in heart rate. Left Ventricle * The left ventricle is normal in size. * There is mild concentric left ventricular hypertrophy. * Ejection Fraction = 55-60%. * Resting wall motion: Normal. Stress wall motion: Appropriate increase in Left ventricular systolic function and decrease in cavity size. No stress induced segmental wall motion abnormalities. * The left ventricular ejection fraction increases normally with stress. The left ventricular end-systolic cavity size reduces post-stress (normal response). The left ventricular wall motion with stress is normal. * There was a marked hyperdynamic response with stress. There was almost complete obliteration of the left ventricular cavity during systole. No segmental wall motion abnormalities of the left ventricle. Stress Parameters * Normal baseline electrocardiogram. * The stress ECG response was normal * The stress portion of this study was personally supervised by the undersigned interpreting physician. * Rest heart rate was '80' BPM. * Rest blood pressure was '110/58' * Maximum heart rate achieved was 144 bpm. * Maximum heart rate was 86 % of maximum age-predicted heart rate. * Maximum blood pressure was '146/30' * Maximum Dobutamine infusion rate was '50' mcg/kg/min. * A total of 0.5 mg of intravenous Atropine was used to supplement Dobutamine for heart rate response. * Dobutamine infusion was terminated due to achieving target heart rate * A total of 10 mg of IV Metoprolol was administered to reverse Dobutamine-induced tachycardia.
--- NOTE | 2016-10-25 16:04 | CARDIOLOGY CONSULTATION ---
DATE OF CONSULTATION: 10/25/2016 PRIMARY PHYSICIAN: Mansoor Zhao MD REFERRING AND ATTENDING PHYSICIAN: Abdirashid Mccauley MD CONSULTATION: Quincy Muñoz MD HISTORY OF PRESENT ILLNESS: The patient is a 51-year-old white male. Longstanding history of chest pain. He underwent cardiac catheterization in 1998, 11/22/2008, and on 02/22/2015. The reports from 1998 stated that he had normal coronary arteries. At that time, he was diagnosed with possible esophageal spasm. The cardiac catheterization performed in 2008 stated that there was a 10%-20% proximal LAD stenosis. No significant obstructive disease. Catheterization in February 2015 reported normal coronary arteries and normal LV systolic function. The patient has undergone stress echocardiograms in 2004, 2009, and December of 2014, all of which were negative for evidence of myocardial ischemia. The patient states that in early September, he began to develop a sensation of exertionally precipitated chest tightness. This could sometimes be associated with wheezing. Since September, he states he has had a nonproductive cough. No fevers or chills. No earaches or sore throat. Occasional headaches. The patient does have a history of reactive airway disease. He also is a usp cigarette smoker. He is still smoking up to half pack of cigarettes a day. He also has a wood burning stove which he has in use on a daily basis. 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 It was constant. He had associated dyspnea and nausea. The discomfort persisted. He came to the Emergency Department for evaluation. He states that after receiving sublingual nitroglycerin, the discomfort resolved. The total duration of the discomfort was approximately 6-7 hours. He states that the discomfort was constant when it was present. Last night, he again had an episode of chest tightness. He states it was relieved after receiving sublingual nitroglycerin. Despite the prolonged nature of the chest discomfort yesterday, his electrocardiogram at 11:06 a.m. in the Emergency Department when he was complaining of chest discomfort was normal. Normal ST segments and T waves. A repeat electrocardiogram performed last evening with complaints of chest discomfort was also normal. Troponin I's have been 0.010, 0.010, and less than 0.015 on 2 other determinations. CK total was 78. CK-MBs 0.6 and 0.5. Because of his normal coronary arteries on cardiac catheterization in 2014, the normal electrocardiograms on this admission with chest pain, and negative cardiac enzymes despite at least 6 hours of constant chest discomfort, it was recommended by me that the patient undergo a dobutamine stress echocardiogram. His mobility is limited because of chronic cervical and lumbar spine pain. A resting echocardiogram was performed this morning and revealed normal left ventricular systolic function and wall motion. No significant valve abnormalities. Mild left ventricular hypertrophy. Left ventricular diastolic dysfunction. Normal chamber dimensions. The patient underwent dobutamine stress this afternoon. 0.5 mg of intravenous atropine was also administered to augment the heart rate response. He achieved greater than 85% maximum predicted heart rate. The electrocardiogram was normal. No ischemic ST or T-wave changes following or during pharmacologic stress. The echo response was totally normal. He had a marked hyperdynamic response in all segments. There was almost near obliteration of his LV cavity during systole. He did complain of chest tightness at maximum heart rate and stress. This resolved after heart rate decreased after administration of intravenous metoprolol. Also, the intravenous dobutamine had been discontinued. PAST MEDICAL HISTORY: 1. History of multiple cardiac catheterizations and stress tests as above. 2. Reactive airway disease. 3. Dyslipidemia. In the past, the patient had refused statin therapy. He now agrees to statin therapy and has been taking it. 4. History of esophageal spasm. 5. Status post lumbar spine compression fracture secondary to a work injury in December 2005. 6. Chronic pain syndrome. 7. Status post cervical spine surgery. 8. Radiculopathy. 9. History of diverticulosis and diverticulitis. 10. Status post left knee surgery. 11. Hypertension. 12. Status post appendectomy. ALLERGIES AND ADVERSE DRUG REACTIONS: TRAMADOL AND NAPROXEN. MEDICATIONS: At time of admission were atorvastatin 20 mg at bedtime, vitamin B12 at 100 mcg daily, gabapentin 900 mg t.i.d., losartan 50 mg daily, morphine sulfate ER 50 mg q. 12 hours, And omeprazole 20 mg b.i.d. P.r.n. diazepam, oxycodone, and Spiriva HandiHaler. He was also taking Aspirin 325 mg daily. ENVIRONMENTAL TYPE ALLERGIES: HE IS ALLERGIC TO BEE STINGS. REVIEW OF SYSTEMS: 1. As above. 2. Nonproductive cough. 3. Audible wheezing on occasion. 4. No dyspnea at rest. Dyspnea with strenuous exertion. 5. No GI complaints. 6. No urinary complaints. 7. No cerebrovascular or peripheral vascular complaints suggestive of CVA or TIA. 8. No fevers. Occasional sensation of chills. FAMILY HISTORY: Significant for his father dying from myocardial infarction at age 35. Brother has undergone multiple stent procedures and has sustained a myocardial infarction in the past. No other siblings. History of hypertension in his mother. SOCIAL HISTORY: The patient is . He smokes up to half a pack of cigarettes a day. He does not drink alcohol. PHYSICAL EXAMINATION: VITAL SIGNS: Late this morning with oral temperature 36.9, pulse 74, and blood pressure 113/61. HEAD: Normal. EYES: Pupils equal and round. Anicteric. Conjunctivae normal. No xanthelasma. NECK: No jugular venous distension. Carotids 2/2 bilaterally. Normal upstroke. No bruits. LUNGS: Normal respiratory effort. Diffuse inspiratory and expiratory wheezes posteriorly. Anteriorly wheezes also noted. No rales. Decreased air movement. HEART: Regular rate and rhythm. S1 and S2 normal. No S3 or S4. No murmur or rub. ABDOMEN: Soft. Nontender. No palpable masses or organomegaly. EXTREMITIES: No pretibial edema. No calf tenderness. No cyanosis or clubbing. PULSES: Distal pulses strongly palpable in all extremities. NEUROLOGICAL: Alert and oriented x3. He can move all extremities. PSYCHIATRIC: Affect is normal. DATA: Electrocardiograms this admission are normal. Chest x-ray on this admission normal. Images reviewed by me. No evidence of heart failure or pneumonia. Echocardiogram and stress echocardiogram reviewed by me and reports as above. The dobutamine stress echocardiogram was actually supervised by me. LABORATORY DATA: This morning with WBC 11.58, hemoglobin 13.6, hematocrit 39.8, and platelet count 266. Metabolic profile -- sodium 142, potassium 4.1, chloride 107, carbon dioxide 26, BUN 22, creatinine 1.10, and random glucose 109. Lipid profile today with triglycerides 139, total cholesterol 144, calculated LDL 67, and HDL 49. MEDICATIONS: As an inpatient are pantoprazole 40 mg b.i.d., metoprolol tartrate 12.5 mg b.i.d., losartan 50 mg daily, atorvastatin 20 mg at bedtime, Nicoderm patch, morphine sulfate 50 mg q. 12 hours, nitroglycerin ointment 0.5 inch q. 6 hours, aspirin 325 mg daily, enoxaparin 40 mg subQ q.a.m., gabapentin 900 mg t.i.d., and several p.r.n. medications. The patient had been on intravenous heparin. This was discontinued this morning. The nitroglycerin ointment was discontinued prior to him undergoing a dobutamine stress echocardiogram. ASSESSMENT: 1. Prolonged episode of chest tightness yesterday. Despite the chest discomfort being constant for up to 6 hours, his electrocardiograms with chest pain and afterwards were normal. His echocardiogram reveals normal LV systolic function and wall motion. His troponin I's are all normal. If the discomfort was secondary to myocardial ischemia or injury, would expect enzyme elevation, ECG changes, or LV wall motion abnormality. He does have significant coronary artery disease risk factors including dyslipidemia, cigarette smoking, and family history of premature coronary artery disease. 2. Dobutamine stress echocardiogram today with entirely normal ECG and echo response to pharmacologic stress. Greater than 85% of maximum predicted heart rate was obtained. He did have sensation of chest tightness at a maximum heart rate. He had a markedly hyperdynamic response to dobutamine and atropine. It would not be unexpected that he could have myocardial ischemia secondary to the vigorous contraction of left ventricle at peak stress. This could be demand ischemia. This could occur even if he continues to have abnormal coronary arteries. 3. No obstructive coronary artery disease noted on cardiac catheterization in 2014. No significant coronary arteries noted on cardiac catheterization in 2008 and 1998. 4. Reactive airway disease. Significant bronchospasm on exam at the time of dobutamine stress echo. Diffuse inspiratory and expiratory wheezes. Decreased air movement in all lung olson. Cannot exclude bronchospasm contributing to his sensation of chest tightness. 5. History of esophageal spasm. Certainly cannot exclude this as an etiology to his chest discomfort. Nitroglycerin with relief of esophageal spasm. RECOMMENDATIONS: 1. Continue his usual medications. 2. Increase regimen for bronchodilatation. 3. Would give him a nebulizer treatment today. 4. From a cardiac standpoint, no further cardiac workup at this time. There is no indication at this time to perform a cardiac catheterization. There is no objective evidence of myocardial ischemia or injury on electrocardiograms with chest pain, cardiac enzymes after several hours of constant chest pain, echocardiography after several hours of chest discomfort, and on pharmacologic stress today with dobutamine and atropine. The assessment and recommendations were discussed with the patient's hospitalist, Dr. Abdirashid Mccauley. Thank you for asking us to see this patient in cardiology consultation.
[2016-10-25] MEDS: NICOTINE 14 MG/24 HR TDSY TD SCH (18:44)
[2016-10-25] MEDS: ALBUT/IPRATROP 3MG/0.5MG NEB 3 ML VIAL INH SCH (19:17)
[2016-10-25] MEDS: ATORVASTATIN 20 MG TAB PO SCH (21:17)
[2016-10-26] VITALS: O2SAT 90
[2016-10-26] MEDS: OXYCODONE HCL IR 5 MG TAB (IMMEDIATE RELEASE) PO PRN ×2 (01:04→07:07)
[2016-10-26] MEDS: METHYLPREDNISOLONE IV 40 MG in SYRINGE 0 ML IV SCH (06:00)
[2016-10-26] MEDS: NITROGLYCERIN OINT 2% 1GM PACKET EXT SCH ×2 (06:00)
[2016-10-26 06:52] VITALS: PULSE 91; O2SAT 90
[2016-10-26] MEDS: ALBUT/IPRATROP 3MG/0.5MG NEB 3 ML VIAL INH SCH (06:52)
[2016-10-26 07:54] VITALS: BP 139/83; PULSE 91; TEMP 36.6; O2SAT 90
[2016-10-26] MEDS: LOSARTAN POTASSIUM 50 MG TAB PO SCH (07:56)
[2016-10-26] MEDS: ASPIRIN 325 MG ECTAB PO SCH (07:56)
[2016-10-26] MEDS: METOPROLOL TARTRATE 25 MG TAB PO SCH (07:57)
[2016-10-26] MEDS: GABAPENTIN 300 MG CAP PO SCH (07:57)
[2016-10-26] MEDS: PANTOprazole SOD 40 MG TAB PO SCH (07:58)
[2016-10-26] MEDS: MoRPHine SULFATE CR 15 MG TAB (MS CONTIN) PO SCH (08:02)
[2016-10-26] MEDS ORDERED: ENOXAPARIN 40 MG/0.4 ML SYR SQ SCH (09:00)
[2016-10-26] MEDS ORDERED: NCDT14 TD (09:33)
[2016-10-26] MEDS ORDERED: LPR25 PO (09:33)
[2016-10-26] MEDS ORDERED: ALBUAER INH (09:33)
[2016-10-26] MEDS ORDERED: PRED20TA PO (09:33)
--- NOTE | 2016-10-26 09:46 | Discharge Instructions ---
Discharge Instructions Admission Reason for Admission: Chest Pain Discharge Discharge Diagnosis / Problem: Chest pain Discharge Goals Goal(s): Decrease discomfort, Improve function, Improve disease control Activity Recommendations Activity Limitations: resume your previous activity Lifting Limitations: none Exercise/Sports Limitations: none May Resume Sexual Activity: when tolerated Shower/Bathe: no limitations Driving or Machine Use: no limitations . Instructions / Follow-Up Instructions / Follow-Up You were admitted for chest pain. During your admission cardiac enzymes were trended and were NEGATIVE. An Echocardiogram (ultrasound) of your heart was completed which showed grossly normal function with ventricular Grade 1 diastolic dysfunction. You were placed on a blood pressure medication called metoprolol 12.5 mg while here. Continue taking this along with losartan for blood pressure control. You also had a dobutamine stress test to check the function of your heart- there were no cardiac abnormalities found. Chest pain was likely due to respiratory causes- - You were treated with steroids for anti-inflammatory process, this will transition to an oral tablet, PREDNISONE. Continue taking this for the next 4 days then stop. - Use Spiriva inhaler every day as directed. You were given a new prescription for a rescue inhaler, Ventolin. Use this as directed for shortness of breath. - Please discuss having pulmonary function tests(PFTs) as an outpatient with your PCP. STOP SMOKING!!!! You have been given a nicotine patch prescription to help you quit. Do not smoke while this patch is on!!! Follow up with your PCP within 1 week. Call you PCP, call 911 AND/OR come to the Emergency department if you experience chest pain, shortness of breath, trouble breathing with exertion, or have other concerns with your health. Current Hospital Diet Patient's current hospital diet: AHA Diet (Heart Healthy) Discharge Diet Recommended Diet: AHA Diet (Heart Healthy) Procedures Procedures Performed: Echocardiogram Dobutamine Stress Test Pending Studies Studies pending at discharge: no Laboratory Results Last Resulted CBC 10/25/16 03:44 Red Blood Count 4.43, Mean Corpuscular Volume 89.8, Mean Corpuscular Hemoglobin 30.7, Mean Corpuscular Hemoglobin Concent 34.2, Mean Platelet Volume 9.4, Neutrophils (%) (Auto) 48.0, Lymphocytes (%) (Auto) 38.2, Monocytes (%) (Auto) 7.9, Eosinophils (%) (Auto) 5.3, Basophils (%) (Auto) 0.3, Neutrophils # (Auto) 5.55, Lymphocytes # (Auto) 4.42, Monocytes # (Auto) 0.92, Eosinophils # (Auto) 0.61, Basophils # (Auto) 0.04 Last Resulted BMP 10/25/16 03:44 Last 24 Hours Test 10/26/16 05:17 Activated Partial Thromboplast Time 26.0 SECONDS Partial Thromboplastin Ratio 1.0 Lipid Panel Test 10/25/16 03:44 Range/Units Triglycerides Level 139 0-150 mg/dl Cholesterol Level 144 0-200 mg/dl HDL Cholesterol 49 mg/dl Cholesterol/HDL Ratio 2.9 LDL Cholesterol, Calculated 67 mg/dl Medical Emergencies . Who to Call and When: Medical Emergencies: If at any time you feel your situation is an emergency, please call 911 immediately. . Non-Emergent Contact Non-Emergency issues call your: Primary Care Provider Call Non-Emergent contact if: you have a fever, your pain is not controlled, your pain is worsening, your pain is unusual for you, your pain is concerning you . Past History Medical & Surgical History: (1) Chest pain (2) Bronchospasm, acute (3) Hypertension (4) Lumbar radiculopathy . "Provider Documentation" section prepared by Joanne Jenkins. VTE Core Measure Inpt VTE Proph given/why not?: Other Anticoagulation, T.E.D. Stockings
[2016-10-26 10:47] VITALS: BP 139/83; PULSE 91; TEMP 36.6; O2SAT 90
--- NOTE | 2016-10-26 14:28 | Discharge Summary ---
Discharge Summary Admission Date: Oct 24, 2016 at 14:00 Discharge Date: Oct 26, 2016 Discharge Disposition: Home Principal Diagnosis: Chest Pain Problems/Secondary Diagnoses: HTN, hyperlipidemia, supraventricular tachycardia, N-STEMI COPD, GERD, diverticulosis,insomnia, SAUL Immunizations: Have You Had Influenza Vaccine: Yes History of Tetanus Vaccine?: Yes Tetanus Immunization Date: Apr 05, 2006 History of Pneumococcal: Yes History of Hepatitis B Vaccine: No Procedures: SINGLE VIEW CHEST 10/24/16 CLINICAL HISTORY: Atypical chest pain. Dyspnea. FINDINGS: An AP, portable, upright chest radiograph is compared to study dated 10/04/2015. The cardiomediastinal silhouette is unremarkable. Linear atelectasis is present in the left lower lung. No airspace consolidation or pleural effusion is identified. No pneumothorax is seen. The bony thorax is grossly intact. IMPRESSION: No acute cardiopulmonary abnormality. Electronically signed by: Rio Laurent M.D. 10/24/2016 11:47 AM Dictated Date/Time: 10/24/2016 11:46 AM Echocardiogram 10/25/16 Interpretation Summary * Name: LUCIAN HAMPTON Study Date: 10/25/2016 12:36 PM BP: 110/58 mmHg * Patient Location: [facility] HR: 80 * : 1965 (M/d/yyyy) Gender: Male Height: 67 in * Age: 51 yrs Ethnicity: [place] Weight: 178 lb * Ordering Physician: Quincy Muñoz MD, [facility] * Performed By: Nicolette Jasmine ALYSSA * * Reason For Study: Chest Pain * BSA: 1.9 m2 * STRESS STUDY: Normal pharmacologic stress echocardiogram. No echocardiographic or ECG evidence of myocardial ischemia having achieved heart rate adequate for diagnostic purposes. Dobutamine Stress Test: 10/25/[address] Muñoz, cardiology consultation on 10/25/16: The patient underwent dobutamine stress this afternoon. 0.5 mg of intravenous atropine was also administered to augment the heart rate response. He achieved greater than 85% maximum predicted heart rate. The electrocardiogram was normal. No ischemic ST or T-wave changes following or during pharmacologic stress. The echo response was totally normal. He had a marked hyperdynamic response in all segments. There was almost near obliteration of his LV cavity during systole. He did complain of chest tightness at maximum heart rate and stress. This resolved after heart rate decreased after administration of intravenous metoprolol. Also, the intravenous dobutamine had been discontinued. Consultations: Cardiology (Charmaine Jenkins, ZE) Medication Reconciliation New Medications: Albuterol Sulfate (Proventil Hfa) 108 Mcg/Act Aer 2 PUFF INH Q4 PRN for Shortness of Breath for 30 Days, #1 INHALER 1 Refill Prednisone (Prednisone) 20 Mg Tab 2 TAB PO DAILY for 4 Days, #8 TAB 2 TABS DAILY FOR 4 DAYS Metoprolol Tartrate (Lopressor) 25 Mg Tab 12.5 MG PO BID for 30 Days, #60 TAB Nicotine (Nicotine) 1 Patch Tdsy 1 PATCH TD QAM for 21 Days, #[address] one patch on skin every morning, remove the next morning. Continued Medications: Aspirin (Aspirin Ec) 325 Mg Tab 325 MG PO Atorvastatin (Atorvastatin Calcium) 20 Mg Tab 20 MG PO HS Cyanocobalamin (Vitamin B-12) 100 Mcg Tab 100 MCG PO DAILY Diazepam (Diazepam) 5 Mg Tab 5 MG PO Q8 PRN for Muscle Spasm Epinephrine (Auvi-Q) 0.3 Mg/0.3 Ml Inj 0.3 MG IM UD PRN for ALLERGIC REACTION INJECT ONCE ONLY Gabapentin (Gabapentin) 300 Mg Cap 900 MG PO TID Losartan Potassium (Cozaar) 50 Mg Tab 50 MG PO DAILY, TAB Morphine Sulfate (Morphine Sulfate Er) 15 Mg Tab 15 MG PO Q12, TAB Omeprazole (Prilosec) 20 Mg Cap 20 MG PO BID TAKE THIS MEDICATION TWICE DAILY 30 MINUTES PRIOR TO BREAKFAST AND EVENING MEAL Oxycodone Hcl (Oxycodone Hcl) 15 Mg Tab 15 MG PO Q6H PRN for Pain Tiotropium [place] (Spiriva Handihaler) 30 Puff/540 Mcg Aerp 1 PUFF INH DAILY PRN for Shortness of Breath Referrals At Discharge Follow up Referrals: Physician Referral - Within 1 Week with Mansoor Zhao M.D. Discharge Exam Pt was seen and examined this morning. His breathing has significantly improved with the steroids and breathing treatments he has received here. He denies any chest pain since having the dobutamine stress test yesterday. Denies shortness of breath at rest or upon exertion. He denies palpitation, flutter, headache, lightheadedness or dizziness. Review of Systems: Constitutional: No chills, No fever, No sweats Eyes: No problem reported ENT: No sore throat Respiratory: No cough, No dyspnea at rest, No dyspnea on exertion, No shortness of breath, No sputum, No wheezing Cardiovascular: No chest pain, No palpitations Abdomen: No diarrhea, No nausea, No pain, No vomiting Musculoskeletal: No calf pain, No joint pain, No swelling Genitourinary - Female: No dysuria Genitourinary - Male: No dysuria, No hematuria Neurologic: No balance problems, No numbness/tingling Integumentary: No bleeding, No color change, No itch, No new/changing skin lesions, No problem reported, No rash Physical Exam: General Appearance: WD/WN, no apparent distress Eyes: PERRL, EOMI ENT: hearing grossly normal, pharynx normal Neck: no JVD Respiratory/Chest: lungs clear, normal breath sounds, no respiratory distress, no accessory muscle use, + pertinent finding (faint expiratory wheeze x 1, cleared with deep breathing. ) Cardiovascular: regular rate, rhythm, no JVD, normal peripheral pulses Abdomen / GI: normal bowel sounds, non tender, soft Extremities: normal inspection, no calf tenderness Neurologic/Psychiatric: normal mood/affect, oriented x 3 Skin: normal color, warm/dry (Charmaine Jenkins PA-C) Hospital Course Admission H&P: Per Joanne Jenkins PA-C Source: patient This is a 51 yo M with PMHx HTN, hyperlipidemia, supraventricular tachycardia, N -STEMI COPD, GERD, diverticulosis,insomnia, SAUL, s/p C3-C6 laminectomy by Dr. Metcalf in January 2016 who presents with chest pain which started at 0300 once he was awake. Pt woke up this early to take his to work. He reports while driving home he developed chest pain, substernally which was sharp and constant in nature, radiating to the right side of his jaw. He took a full dose aspirin and his other medications, and pain only slightly resolved. 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 The patient presented to the ED after pain did not resolve. He has a strong family history of cardiac events; father at age 37 from [place] , he had two uncles who both of [place], one in early 40s and the other in his early 60s. His brother has had 5 heart attacks, still living, and is two years older than him. He smokes 3/4 pack per day for 30 years and previously chewed tobacco. He denies exercising at all. In the ED pt received 2" nitropaste, troponin 1st set was negative, EKG was done and was in NSR without ST elevation or ischemic changes. PE: General Appearance: WD/WN, no apparent distress, + pertinent finding (smells of tobacco smoke) Head: normocephalic, atraumatic Eyes: PERRL, EOMI ENT: hearing grossly normal, pharynx normal Neck: supple, no JVD, no carotid bruits Respiratory/Chest: chest non-tender, no respiratory distress, no accessory muscle use, + pertinent finding (+ expiratory wheezing, +tight breath sounds throughout. No rhales or rhonchi.) Cardiovascular: no JVD, normal peripheral pulses, + tachycardia Abdomen/GI: normal bowel sounds, non tender, soft Back: no muscle spasm, + pertinent finding (scar over cervical vertebrae, no point tenderness. ) Extremities/Musculoskelatal: no calf tenderness, no pedal edema Neurologic/Psych: alert, normal mood/affect, oriented x 3 Skin: normal color, warm/dry Hospital Course: This is a 51 yo M with PMHx HTN, hyperlipidemia, supraventricular tachycardia, N -STEMI COPD, GERD, diverticulosis,insomnia, SAUL, s/p C3-C6 laminectomy by Dr. Metcalf in January 2016 who presents with chest pain which started at 0300. Chest pain HTN, Previous NSTEMI 2013, congenital prolapsed mitral valve - Admit to telemetry - Consulted cardiology for recommendations The patient did not undergo a cardiac catheterization because the Echocardiogram was essentially normal. The patient had a dobutamine stress test completed by Dr. Muñoz: Echocardiogram 10/25/16 Interpretation Summary * Name: LUCIAN HAMPTON Study Date: 10/25/2016 12:36 PM BP: 110/58 mmHg * Patient Location: [facility] [place] HR: 80 * : 1965 (M/d/yyyy) Gender: Male Height: 67 in * Age: 51 yrs Ethnicity: [place] Weight: 178 lb * Ordering Physician: Quincy Muñoz MD, [facility] * Performed By: Nicolette Jasmine RDCS * * Reason For Study: Chest Pain * BSA: 1.9 m2 * STRESS STUDY: Normal pharmacologic stress echocardiogram. No echocardiographic or ECG evidence of myocardial ischemia having achieved heart rate adequate for diagnostic purposes. Dobutamine Stress Test: 10/25/[address] Muñoz, cardiology consultation on 10/25/16: The patient underwent dobutamine stress this afternoon. 0.5 mg of intravenous atropine was also administered to augment the heart rate response. He achieved greater than 85% maximum predicted heart rate. The electrocardiogram was normal. No ischemic ST or T-wave changes following or during pharmacologic stress. The echo response was totally normal. He had a marked hyperdynamic response in all segments. There was almost near obliteration of his LV cavity during systole. He did complain of chest tightness at maximum heart rate and stress. This resolved after heart rate decreased after administration of intravenous metoprolol. Also, the intravenous dobutamine had been discontinued. - Trend troponin and CKMB - consecutive sets were all negative - Heparin gtt stopped - Nitro tablets given as outpt prescription. - Continue metoprolol 12.5 BID - worked well to reduce BP and HR. - was given new prescription - Continue losartan Chronic Back Pain, lumbar S/p cervical laminectomy C3-C6 - Continue FIELD TECH narcotics to reduce the risk of withdrawal: oxycodone 15 mg TID, morphine ER 15 mg BID - Cont gabapentin 900 mg TID COPD Tobacco Abuse - Smoking cessation encouraged - Ordered nicotine patch - discussion held to inform the patient not to smoke at all while the patch is applied transdermally as this significantly increases the risk for cardiac events. The patient expressed understanding and all his questions and concerns were answered. CM was contacted for [place] of the patch, for this patient only a $1.00 copay is required. - Continue Spiriva daily - Ventolin hfa Rx given to the patient as a rescue inhaler. - Pt was encouraged to discuss the need for PFTs as an outpatient with Dr. Zhao. 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 Total Time Spent: Greater than 30 minutes This includes examination of the patient, discharge planning, medication reconciliation, and communication with other providers. (Charmaine Jenkins PA-C) Discharge Instructions Please refer to the electronic Patient Visit Report (Discharge Instructions) for additional information. (Charmaine Jenkins PA-C) agree with above (Abdirashid Mccauley MD) Follow-Up Follow up with your Primary Care Provider within 1 week. (Charmaine Jenkins PA-C) Additional Copies To Mansoor Zhao M.D.
== END 2016-10-26 11:02 | disposition home or self-care (01) | DRG 313 ==
LOC: ENRESERVTM → CANRESERV → ENRESERVDT → C.EDB 10:10 → C.2E 14:00 → C.MS2W 10-25 15:47
PROVIDERS: ADMIT Hospitalist; ATTEND Hospitalist
DX: R07.89 Other chest pain (principal); I47.1 Supraventricular tachycardia; G89.29 Other chronic pain; J44.9 Chronic obstructive pulmonary disease, unspecified; M54.16 Radiculopathy, lumbar region; K21.9 Gastro-esophageal reflux disease without esophagitis; I10 Essential (primary) hypertension; E78.5 Hyperlipidemia, unspecified; I25.2 Old myocardial infarction; G47.33 Obstructive sleep apnea (adult) (pediatric); Z82.49 Family history of ischemic heart disease and other diseases of the circulatory system; F17.210 Nicotine dependence, cigarettes, uncomplicated; Z79.899 Other long term (current) drug therapy

== ENCOUNTER → 2016-11-20 | Outpatient (CLI) | payer OTHER ==
[~2016-11-20] MED LIST changes: +ALBUAER INH; +ASPI325T39 PO; +LOSA50TA6 PO; +LPR25 PO; +NCDT14 TD
--- NOTE | 2016-11-20 15:56 | DIAGNOSTIC IMAGING REPORT ---
CHEST 2 VIEWS ROUTINE CLINICAL HISTORY: Exacerbation of COPD COMPARISON STUDY: 10/24/2016 FINDINGS: The cardiac and mediastinal contours are normal. There is no evidence of focal pulmonary consolidation. There is no evidence of failure. No pleural effusions are visualized.[ There are few chronic interstitial densities within the left lung. IMPRESSION: No active disease in the chest. Electronically signed by: Kaiden Baltazar M.D. 11/20/2016 3:55 PM Dictated Date/Time: 11/20/2016 3:54 PM
== END | disposition home or self-care (01) ==
LOC: C.RAD1850 15:45
PROVIDERS: ATTEND Internal Medicine
DX: J44.1 Chronic obstructive pulmonary disease with (acute) exacerbation (principal)

== ENCOUNTER → 2017-02-11 | Outpatient (CLI) | payer OTHER ==
--- NOTE | 2017-02-11 14:41 | DIAGNOSTIC IMAGING REPORT ---
RIGHT SHOULDER MIN 2 VIEWS ROUTINE CLINICAL HISTORY: M25.511 Right shoulder pain Right pain COMPARISON: None. DISCUSSION: Degenerative change right acromioclavicular joint. Glenohumeral joint is unremarkable. No evidence for fracture or dislocation. There is no evidence for soft tissue swelling. IMPRESSION: Degenerative change right acromioclavicular joint. No acute process. Electronically signed by: Derrick Vo M.D. 02/11/2017 2:40 PM Dictated Date/Time: 02/11/2017 2:40 PM
== END | disposition home or self-care (01) ==
LOC: C.RAD1850 14:17
PROVIDERS: ATTEND Physician Assistant Medical
DX: M25.511 Pain in right shoulder (principal)

== ENCOUNTER → 2017-03-25 | Outpatient (CLI) | payer OTHER ==
[2017-03-25 12:47] LABS: BASO % 0.5 %; BASO ABS # 0.04 K/uL (0-0.2); COMPLETE YES; EOS % 4.3 %; HEMATOCRIT 46.4 % (42-52); IG% 0.3 %; LYMPH % 28.6 %; LYMPH ABS # 2.52 K/uL (1.2-3.4); MEAN CELL VOLUME 95.1 fL (80-100); MEAN CORPUSCULAR HEMOGLOBIN 31.1 pg (25-34); MEAN CORPUSCULAR HGB CONC 32.8 g/dl (32-36); MEAN PLATELET VOLUME 9.2 fL (7.4-10.4); MONO % 8.6 %; NEUT % 57.7 %; PLATELET COUNT 333 K/uL (130-400); RED BLOOD COUNT 4.88 M/uL (4.7-6.1)
[2017-03-25 13:00] LABS: ESTIMATED AVERAGE GLUCOSE 126 mg/dl; HA1C FLAG Normal (Normal)
[2017-03-25 13:08] LABS: ALT/SGPT 30 U/L (12-78); BLOOD UREA NITROGEN 12 mg/dl (7-18); BUN/CREATININE RATIO 12.7 (10-20); CARBON DIOXIDE 27 mmol/L (21-32); CHLORIDE 105 mmol/L (98-107); CHOLESTEROL 161 mg/dl (0-200); CREATININE 0.95 mg/dl (0.60-1.40); GLUCOSE 103 mg/dl (70-99); POTASSIUM 5.2 mmol/L (3.5-5.1); SODIUM 140 mmol/L (136-145); TRIGLYCERIDES 184 mg/dl (0-150); VERY LOW DENSITY LIPOPROT CALC 37 mg/dl
[2017-03-25 13:11] LABS: CALCIUM 9.7 mg/dl (8.5-10.1)
[2017-03-25 13:13] LABS: ALKALINE PHOSPHATASE 87 U/L (45-117); AST/SGOT 21 U/L (15-37); CHOLESTEROL/HDL RATIO 4.1; HDL CHOLESTEROL 39 mg/dl; LDL CHOLESTEROL CALCULATED 85 mg/dl
== END | disposition home or self-care (01) ==
LOC: C.LAB1850 10:50
PROVIDERS: ATTEND Internal Medicine
DX: E78.00 Pure hypercholesterolemia, unspecified (principal); R26.9 Unspecified abnormalities of gait and mobility; Z12.5 Encounter for screening for malignant neoplasm of prostate; R73.03 Prediabetes

== ENCOUNTER → 2017-05-31 | Outpatient (CLI) | payer OTHER ==
--- NOTE | 2017-05-31 11:22 | DIAGNOSTIC IMAGING REPORT ---
C-SPINE ROUTINE 4 OR 5 VIEWS HISTORY: Pain. Neuropathy. CERVICAL RADICULOPATHY COMPARISON: 12/27/2014 FINDINGS: The cervical spine is visualized from C1 through the superior endplate of T1. There is no fracture. No subluxation. Interval posterior laminectomy and fusion from C3 through C6. Moderate degenerative disc changes present throughout the hardware appears to be intact. Minimal grade 1 reverse subluxation C5 on C6 unchanged from the prior study. Prevertebral soft tissues and the atlantodens interval are intact. IMPRESSION: Interval postoperative changes consistent with posterior laminectomy and fusion. Moderate degenerative intervertebral disc change. No acute process. The above report was generated using voice recognition software. It may contain grammatical, syntax or spelling errors. Electronically signed by: Derrick Vo M.D. 05/31/2017 11:21 AM Dictated Date/Time: 05/31/2017 11:18 AM
== END | disposition home or self-care (01) ==
LOC: C.RADBC 10:57
PROVIDERS: ATTEND Anesthesiology
DX: M47.22 Other spondylosis with radiculopathy, cervical region (principal); Z98.1 Arthrodesis status

== ENCOUNTER → 2017-06-14 | Outpatient (CLI) | payer OTHER ==
[~2017-06-14] MED LIST changes: +GADAVIST IV PRN; -NCDT14 TD
--- NOTE | 2017-06-14 10:21 | DIAGNOSTIC IMAGING REPORT ---
MRI OF THE CERVICAL SPINE WITH AND WITHOUT CONTRAST CLINICAL HISTORY: Cervical radiculopathy with right upper extremity weakness. COMPARISON: Cervical spine CT December 22, 2015 and cervical spine MRI January 24, 2015. TECHNIQUE: Utilizing a 1.5 Elham magnet and dedicated coil, multiplanar, multiecho imaging of the cervical spine was performed before and after intravenous administration of 8 of Gadavist. FINDINGS: There are postsurgical findings consistent with a C3-C6 posterior fusion and decompression. There is slight reversal of the normal cervical lordosis. Cervical cord signal and caliber are normal. There is no intracanalicular mass or fluid collection. Paravertebral soft tissues are unremarkable. There is no suspicious marrow replacement. Visualized portions of the posterior fossa are normal. C2-C3: The central canal and neural foramen are patent. C3-C4: The central canal is patent. There is minimal left neural foraminal stenosis. C4-C5: The central canal is patent. The left neural foramen is patent. Right neural foramen are suboptimally assessed due to artifact but likely patent. C5-C6: There is no central canal stenosis. Neural foramen are difficult to assess due to artifact but there is probable mild bilateral neural foraminal narrowing C6-C7: Minimal posterior disc osteophyte complex is noted. The central canal is patent. There is moderate bilateral neural foraminal stenosis at this level. C7-T1: Central canal and neural foramen are patent. IMPRESSION: 1. Status post C3-C6 posterior fusion and decompression. Patent central canal. 2. Minimal posterior disc osteophyte complex at C6-C7 without central canal stenosis. 3. Moderate bilateral neural foraminal stenosis at C6-C7 due to facet arthrosis and uncovertebral hypertrophy. Otherwise, mild multilevel neural foraminal stenosis. Electronically signed by: Idris Kirk M.D. 06/14/2017 10:20 AM Dictated Date/Time: 06/14/2017 10:06 AM
== END | disposition home or self-care (01) ==
LOC: C.MRIBC 08:49
PROVIDERS: ATTEND Anesthesiology
DX: M54.12 Radiculopathy, cervical region (principal); M62.81 Muscle weakness (generalized)

== ENCOUNTER → 2017-08-22 | Outpatient (CLI) | payer OTHER ==
[~2017-08-22] MED LIST changes: -GADAVIST IV PRN
[2017-08-22 17:51] LABS: CHOLESTEROL/HDL RATIO 3.9
== END | disposition home or self-care (01) ==
LOC: C.LABBFT 15:04
PROVIDERS: ATTEND Internal Medicine
DX: E78.5 Hyperlipidemia, unspecified (principal)

== ENCOUNTER 2017-12-16 18:28 | Emergency (ER) | payer OTHER ==
[~2017-12-16] VITALS: Ht 172.7 cm; Wt 82.0 kg
[~2017-12-16 18:28] MED LIST changes: +GABA-1219 PO; -GABA1CAP4 PO; -LPT/20 PO; +LPT20 PO
[2017-12-16 18:34] VITALS: TEMP 36.6; Ht 172.7 cm; Wt 82.0 kg
[2017-12-16] MEDS ORDERED: XYLOCAINE 1%/SOD BICARB 20 ML VIAL INFIL ONE (19:00)
[2017-12-16] MEDS ORDERED: METO25TA56 PO (19:17)
[2017-12-16] MEDS ORDERED: ALBUAER INH (19:24)
--- NOTE | 2017-12-16 19:32 | DIAGNOSTIC IMAGING REPORT ---
R FINGER(S) MIN 2 VIEWS ROUTINE CLINICAL HISTORY: right index finger laceration, eval fx COMPARISON: None. DISCUSSION: The bones and joint spaces appear intact. There is no evidence of fracture, dislocation or bony disease. Focal soft tissue laceration dorsal to the proximal interphalangeal joint. IMPRESSION: Soft tissue laceration. No acute bony abnormality. The above report was generated using voice recognition software. It may contain grammatical, syntax or spelling errors. Electronically signed by: Derrick Vo M.D. 12/16/2017 7:31 PM Dictated Date/Time: 12/16/2017 7:16 PM
[2017-12-16] MEDS ORDERED: CEPH500C PO (20:38)
--- NOTE | 2017-12-16 20:41 | EMERGENCY ROOM VISIT NOTE ---
ED Visit Note First contact with patient: 18:37 CHIEF COMPLAINT: Finger laceration HISTORY OF PRESENT ILLNESS: This 52-year-old male patient presents to the emergency department by private vehicle after sustaining a laceration to the right second finger. Patient states that he was carrying a piece of log firewood, dropped the log onto his finger causing a laceration. The bleeding has not stopped. Denies weakness or numbness of the finger. The patient has full range of motion of the fingers. The patient rates the pain as throbbing and 8/10. The patient denies any other injuries. The patient's tetanus shot is up to date. No other associated injuries. He is a current everyday smoker. He is not diabetic. REVIEW OF SYSTEMS: A 6 system review of systems was completed with positives and pertinent negatives listed in the HPI. ALLERGIES: Reviewed in chart. MEDICATIONS: Reviewed in chart. PMH: Reviewed in chart. SOCIAL HISTORY: Lives at home. He is a current daily smoker. PHYSICAL EXAM: Vital Signs: Reviewed Nurse's notes, vital signs stable. GENERAL : Pleasant and cooperative, in no acute distress, well developed, well nourished. SKIN: There is a 4 cm long laceration on the dorsal aspect of the right second finger. The edges gape apart with traction. There is no foreign material in the wound and it looks clean. There is moderate bleeding. The wound base extends to the bone, but there is no extension into the bony structures or joint space. Tendons are visible and appear fully intact with no lacerations. Extension and flexion of the finger is full and strong. Full range of motion of the wrist and other fingers. Capillary refill less than 2 seconds. Normal sensation to light and sharp touch. EMERGENCY DEPARTMENT COURSE: I examined the patient. An x-ray of the right second finger was performed, reviewed by myself and radiologist, no acute fracture by my interpretation. Verbal consent was obtained to perform the procedure. Using sterile technique the wound was cleansed with Betadine. 7 ml of 1% buffered lidocaine was used to perform a digital block to anesthetize the patient. The area was sterilely draped. Once the patient was anesthetized, the wound was copiously irrigated under pressure with sterile saline. The wound was explored and there were no deep structures injured. The laceration was repaired using 10 simple interrupted 4-0 nylon sutures. The patient tolerated the procedure well. Hemostasis was achieved. The area was cleaned with sterile saline and dressed with bacitracin ointment and bandage. Given the exposed bone in the base of the wound, will treat with few days of antibiotics for prophylaxis. The patient was given a dose of Keflex and sent home with Rx for Keflex for a total of 5 days. Patient was placed in a metal finger splint under my supervision, neurovascularly intact upon recheck. Patient was educated regarding wound care, follow-up, and return precautions, he verbalized understanding. The patient was discharged home in stable condition and ambulatory. Problem List Medical Problems: (1) Back pain Status: Chronic (2) Hypertension Status: Chronic (3) Lumbar radiculopathy Status: Resolved Surgical Problems: (1) H/O cardiac catheterization Status: Chronic Current/Historical Medications Scheduled Atorvastatin (Lipitor), 80 MG PO HS Cephalexin Monohydrate (Keflex), 500 MG PO QID Cyanocobalamin (Vitamin B-12), 100 MCG PO DAILY Gabapentin (Gabapentin), 900 MG PO TID Losartan Potassium (Cozaar), 50 MG PO DAILY Metoprolol Tartrate (Lopressor) (Lopressor), 12.5 MG PO BID Morphine Sulfate (Morphine Sulfate Er), 15 MG PO Q12 Omeprazole (Prilosec), 20 MG PO BID Scheduled PRN Albuterol Sulfate (Proventil Hfa), 2 PUFF INH Q4H PRN for SOB/Wheezing Diazepam (Diazepam), 5 MG PO Q8 PRN for Muscle Spasm Epinephrine (Auvi-Q), 0.3 MG IM UD PRN for ALLERGIC REACTION Oxycodone Hcl (Oxycodone Hcl), 15 MG PO Q6H PRN for Pain Tiotropium [place] (Spiriva Handihaler), 1 PUFF INH DAILY PRN for Shortness of Breath Miscellaneous Medications Aspirin (Aspirin Ec), 325 MG PO Allergies Coded Allergies: BEE STING (Verified Allergy, Severe, PASSES OUT, 11/07/17) Naproxen (Verified Allergy, Intermediate, SEVERE RASH, 11/07/17) Tramadol (Verified Adverse Reaction, Intermediate, GI SYMPTOMS, 11/07/17) Vital Signs Date Time Temp Pulse Resp B/P (MAP) Pulse Ox O2 Delivery O2 Flow Rate FiO2 12/16/17 20:54 80 20 145/80 97 12/16/17 18:34 36.6 88 18 155/92 97 Room Air Medications Administered Medications (Trade) Dose Ordered Sig/Susana Route Start Time Stop Time Status Last Admin Dose Admin Cephalexin Monohydrate (Keflex 500MG Home Pack) 1 homepack NOW ONCE PO 12/16/17 20:45 12/16/17 20:46 DC 12/16/17 20:42 1 HOMEPACK Cephalexin Monohydrate (Keflex Cap) 500 mg NOW ONCE PO 12/16/17 20:45 12/16/17 20:46 DC 12/16/17 20:43 500 MG Departure Information Impression Primary Impression: Laceration of index finger of right hand without complication Dispostion Home / Self-Care Condition GOOD Prescriptions Cephalexin Monohydrate (Keflex) 500 Mg Cap 500 MG PO QID for 4 Days, #16 CAP Prov: Charmaine Mo, MARVEL 12/16/17 Referrals Mansoor Zhao M.D. (PCP) Patient Instructions ED Laceration Hand, [facility] Additional Instructions Follow-up with your PCP, in urgent care, or ER for suture removal in 8-10 days. Keep wound clean and dry. Do not allow any crusting or dried blood to accumulate on sutures. If this occurs, use a 1:1 solution of hydrogen peroxide/ water on a Q-tip to clean the wound. Do not submerge the wound under water until the sutures have been removed. Use an antibiotic ointment for 3-4 days, then let wound dry. Keep covered with a Band-Aid. Wear the finger splint until your sutures are removed. Ice and elevate for swelling and pain. Ibuprofen 600 mg and Tylenol 1000 mg every 6-8 hours as needed for pain. As with all lacerations, there may be temporary or permanent nerve damage or scarring. Keep covered when in sun until sutures removed then SPF 50 or higher for one year. Vitamin E oil if desired two weeks after suture removal for reduction of scar. Please seek immediate medical attention for any signs of infection (increasing redness, pain, swelling, pus drainage, streaking up the hand/arm, fever/chills). Work Instructions Additional Work Instructions: Must wear the finger splint until sutures are removed. Thank you.
[2017-12-16] MEDS ORDERED: CEPHALEXIN 500MG HOME PACK 1 EA BTL PO ONE (20:45)
[2017-12-16] MEDS ORDERED: CEPHALEXIN MONOHYDRATE 250 MG CAP PO ONE (20:45)
[2017-12-16 20:54] VITALS: BP 145/80; PULSE 80; O2SAT 97
== END 2017-12-16 20:56 | disposition home or self-care (01) ==
LOC: C.EDB 18:29 → C.EDD 20:56
DX: S61.210A Laceration without foreign body of right index finger without damage to nail, initial encounter (principal); W22.8XXA Striking against or struck by other objects, initial encounter; F17.200 Nicotine dependence, unspecified, uncomplicated; I10 Essential (primary) hypertension; Z91.030 Bee allergy status; Z88.8 Allergy status to other drugs, medicaments and biological substances

== ENCOUNTER → 2018-01-09 | Day surgery (SDC) | payer OTHER ==
[2017-12-26 08:22] VITALS: Ht 172.7 cm; Wt 84.1 kg
[~2018-01-09] VITALS: Ht 172.7 cm; Wt 84.1 kg
[~2018-01-09] MED LIST changes: +ATOR-26 PO; +DOCU-94 PO; -EPIN1INJ33 IM; +EPP3/2 IM; +FLUT1INH INH; +LIDOCAINE HCL 2% 2 ML VIAL (20MG/ML) ONE; +LOSA100T65 PO; -LOSA50TA6 PO; -LPR25 PO; -LPT20 PO; +METO25TA56 PO; +PROPOFOL IV EMULSION 10 MG/ML 20 ML VIAL IV ONE; +SODIUM CHLORIDE 0.9% 500ML 500 ML IV ONE; -VLM5CL PO
[2018-01-09 12:54] VITALS: TEMP 37
--- NOTE | 2018-01-09 13:00 | Endo History and Physical ---
History & Physical Date of Service: Jan 09, 2018. Chief Complaint: Screening, Heme positive stool Referring Physician: Mansoor Zhao History of Present Illness 52 yo CM who presents for screening colonoscopy. Past Medical History Reflux, High Cholesterol, Heart Disease, Hypertension, COPD, [place] Past Surgical History Hx Cardiac Surgery: No Hx Internal Defibrillator: No Hx Pacemaker: No Hx Abdominal Surgery: Yes (APPENDECTOMY) Hx of Implantable Prosthesis: No Hx Post-Op Nausea and Vomiting: No Hx Cancer Surgery: No Hx Thoracic Surgery: No Hx Orthopedic: Yes (C2-C6 NECK FUSION (FULL ROM); BILATERAL KNEE ARTHROSCOPY) Hx Urinary Tract Surgery: No Family History None Social History Smoking Status: Current Every Day Smoker Hx Substance Use: Yes (SEE MED LIST) Hx Alcohol Use: No Allergies Coded Allergies: BEE STING (Verified Allergy, Severe, PASSES OUT, 01/09/18) Naproxen (Verified Allergy, Intermediate, SEVERE RASH, 01/09/18) Tramadol (Verified Adverse Reaction, Intermediate, GI SYMPTOMS, 01/09/18) Current Medications Reported Home Medications Medications Dose Route/Sig Max Daily Dose Days Date Category Dose Instructions Colace (Docusate Sodium) 100 Mg Cap 1 Cap PO BID 12/26/17 Reported Breo Ellipta (Fluticasone Furoate-Vilanterol) 1 Inh Inh 1 Puff INH QAM 12/26/17 Reported Epipen (Epinephrine) 0.3 Mg/0.3 Ml Inj 0.3 Mg IM UD 12/26/17 Reported Cozaar (Losartan Potassium) 100 Mg Tab 100 Mg PO QAM 12/26/17 Reported Lipitor (Atorvastatin Calcium) 80 Mg Tab 80 Mg PO HS 12/26/17 Reported Proventil Hfa (Albuterol Sulfate) 108 Mcg/Act Aer 2 Puff INH Q4H PRN 12/16/17 Reported Lopressor (Metoprolol Tartrate) 25 Mg Tab 12.5 Mg PO BID 12/16/17 Reported Aspirin Ec (Aspirin) 325 Mg Tab 325 Mg PO QAM 10/24/16 Reported Spiriva Handihaler (Tiotropium [place]) 30 Puff/540 Mcg Aerp 2 Puff INH DAILY PRN 09/18/16 Reported Prilosec (Omeprazole) 20 Mg Cap 20 Mg PO BID 09/18/16 Reported TAKE THIS MEDICATION TWICE DAILY 30 MINUTES PRIOR TO BREAKFAST AND EVENING MEAL Oxycodone Hcl 15 Mg Tab 15 Mg PO Q6H PRN 09/18/16 Reported Gabapentin 300 Mg Cap 900 Mg PO TID 09/18/16 Reported Vitamin B-12 (Cyanocobalamin) 100 Mcg Tab 100 Mcg PO DAILY 09/18/16 Reported Morphine Sulfate Er (Morphine Sulfate) 15 Mg Tab 15 Mg PO Q12 06/22/15 Reported Vital Signs Weight (Kilograms): 84.09 Height (Feet): 5 Height (Inches): 8 Date Time Temp Pulse Resp B/P (MAP) Pulse Ox O2 Delivery O2 Flow Rate FiO2 01/09/18 12:54 37 73 18 153/90 (111) 94 Room Air Physical Exam General Appearance: WD/WN, no apparent distress Respiratory/Chest: Auscultation: breath sounds normal Cardiovascular: Heart Auscultation: RRR Abdomen: Bowel Sounds: normal Inspection & Palpation: soft, non-distended, no tenderness, guarding & rebound Assessment and Plan Assessment: 52 yo CM who presents for screening colonoscopy. Plan: Proceed with colonoscopy.
--- NOTE | 2018-01-09 13:27 | Discharge Instructions ---
Endoscopy Patient Instructions Date / Procedure(s) Performed Jan 09, 2018. Colonoscopy Allergy Information Coded Allergies: BEE STING (Verified Allergy, Severe, PASSES OUT, 01/09/18) Naproxen (Verified Allergy, Intermediate, SEVERE RASH, 01/09/18) Tramadol (Verified Adverse Reaction, Intermediate, GI SYMPTOMS, 01/09/18) Discharge Date / Findings Jan 09, 2018. Diverticulosis Internal hemorrhoids Medication Instructions Stopped Medication(s): ASA, Vitamin B12 OK to resume all medications today as prescribed Reported Home Medications Medications Dose Route/Sig Max Daily Dose Days Date Category Dose Instructions Colace (Docusate Sodium) 100 Mg Cap 1 Cap PO BID 12/26/17 Reported Breo Ellipta (Fluticasone Furoate-Vilanterol) 1 Inh Inh 1 Puff INH QAM 12/26/17 Reported Epipen (Epinephrine) 0.3 Mg/0.3 Ml Inj 0.3 Mg IM UD 12/26/17 Reported Cozaar (Losartan Potassium) 100 Mg Tab 100 Mg PO QAM 12/26/17 Reported Lipitor (Atorvastatin Calcium) 80 Mg Tab 80 Mg PO HS 12/26/17 Reported Proventil Hfa (Albuterol Sulfate) 108 Mcg/Act Aer 2 Puff INH Q4H PRN 12/16/17 Reported Lopressor (Metoprolol Tartrate) 25 Mg Tab 12.5 Mg PO BID 12/16/17 Reported Aspirin Ec (Aspirin) 325 Mg Tab 325 Mg PO QAM 10/24/16 Reported Spiriva Handihaler (Tiotropium [place]) 30 Puff/540 Mcg Aerp 2 Puff INH DAILY PRN 09/18/16 Reported Prilosec (Omeprazole) 20 Mg Cap 20 Mg PO BID 09/18/16 Reported TAKE THIS MEDICATION TWICE DAILY 30 MINUTES PRIOR TO BREAKFAST AND EVENING MEAL Oxycodone Hcl 15 Mg Tab 15 Mg PO Q6H PRN 09/18/16 Reported Gabapentin 300 Mg Cap 900 Mg PO TID 09/18/16 Reported Vitamin B-12 (Cyanocobalamin) 100 Mcg Tab 100 Mcg PO DAILY 09/18/16 Reported Morphine Sulfate Er (Morphine Sulfate) 15 Mg Tab 15 Mg PO Q12 06/22/15 Reported Provider Instructions Activity Restrictions - No exercising or heavy lifting for 24 hours. - Do not drink alcohol the day of the procedure. - Do not drive a car or operate machinery until the day after the procedure. - Do not make any important decisions or sign important papers in 24 hours after the procedure. Following Day: - Return to full activity which may include returning to work/school. Diet Start your diet with liquids and light foods (jello, soup, juice, toast). Then eat your usual diet if not nauseated. Treatment For Common After Affects For mild abdominal pain, bloating, or excessive gas: - Rest - Eat lightly - Lie on right side Follow-Up Information Follow-up with Mansoor Zhao as scheduled Anesthesia Information What You Should Know You have had a procedure that required some medicine to reduce anxiety and discomfort. This treatment is called moderate sedation. After receiving the treatment, you may be sleepy, but you will be able to breathe on your own. The effects of the treatment may last for several hours. Follow these instructions along with Activity/Diet recommendations noted above: * Do NOT do anything where dizziness or clumsiness would be dangerous. * Rest quietly at home today, then you can be up and about tomorrow. * Have a responsible person stay with you the rest of today. * You may have had an I.V. today. If so, you may take the dressing off later today. Recommendations Call your doctor if: * Trouble breathing * Continuous vomiting for more than 24 hours * Temperature above 101 degrees * Severe abdominal pain or bloating * Pain not relieved by pain medicine ordered * There is increased drainage or redness from any incision * A large amount of rectal bleeding greater than 2-3 tablespoons. (If you had a polyp/s removed or have hemorrhoids, a small amount of blood - from the rectum is to be expected.) * You have any unanswered questions or concerns. IN THE EVENT OF A SERIOUS EMERGENCY, GO TO THE NEAREST EMERGENCY ROOM Your discharge instructions were prepared by provider Smith Conti. Patient Instructions Signature Page Meet Lindsay Patient (or Guardian) Signature/Date: I have read and understand the instructions given to me by my caregivers. Caregiver/RN/Doctor Signature/Date: The above-named patient and/or guardian has received patient instructions on this date. + Original Patient Signature Page (only) stays with chart. Please make copy for patient.
--- NOTE | 2018-01-09 13:31 | GI REPORT ---
Procedure Date: 01/09/2018 12:53 PM Procedure: Colonoscopy Indications: Screening for colorectal malignant neoplasm Medicines: Monitored Anesthesia Care Complications: No immediate complications. Estimated Blood Loss: Estimated blood loss: none. Procedure: Pre-Anesthesia Assessment: - Prior to the procedure, a History and Physical was performed, and patient medications and allergies were reviewed. The patient's tolerance of previous anesthesia was also reviewed. The risks and benefits of the procedure and the sedation options and risks were discussed with the patient. All questions were answered, and informed consent was obtained. Prior Anticoagulants: The patient has taken no previous anticoagulant or antiplatelet agents. ASA Grade Assessment: II - A patient with mild systemic disease. After reviewing the risks and benefits, the patient was deemed in satisfactory condition to undergo the procedure. After I obtained informed consent, the scope was passed under direct vision. Throughout the procedure, the patient's blood pressure, pulse, and oxygen saturations were monitored continuously. The scope was introduced through the anus and advanced to the terminal ileum. The colonoscopy was performed without difficulty. The patient tolerated the procedure well. The quality of the bowel preparation was good. The terminal ileum, ileocecal valve, appendiceal orifice, and rectum were photographed. Findings: The perianal and digital rectal examinations were normal. Multiple small-mouthed diverticula were found in the sigmoid colon. Non-bleeding internal hemorrhoids were found during retroflexion. The hemorrhoids were small. Impression: - Diverticulosis in the sigmoid colon. - Non-bleeding internal hemorrhoids. - No specimens collected. Recommendation: - Resume previous diet. - Continue present medications. - Repeat colonoscopy in 10 years for surveillance. - Return to primary care physician as previously scheduled. Smith Conti, 01/09/2018 1:30:47 PM This report has been signed electronically. Note Initiated On: 01/09/2018 12:53 PM I attest to the content of the Intraoperative Record and orders documented therein, exceptions below
--- NOTE | 2018-01-09 13:47 | Anesthesiology Progress Note ---
Anesthesia Post Op Note Date & Time Jan 09, 2018 at 13:47 Vital Signs Pain Intensity: 0 Vital Signs Past 12 Hours Date Time Temp Pulse Resp B/P (MAP) Pulse Ox O2 Delivery O2 Flow Rate FiO2 01/09/18 13:40 77 16 151/94 (113) 95 Room Air 01/09/18 13:28 74 16 126/75 (92) 95 Room Air 01/09/18 12:54 37 73 18 153/90 (111) 94 Room Air Notes Mental Status: alert / awake / arousable, participated in evaluation Pt Amnestic to Procedure: Yes Nausea / Vomiting: adequately controlled Pain: adequately controlled Airway Patency, RR, SpO2: stable & adequate BP & HR: stable & adequate Hydration State: stable & adequate Anesthetic Complications: no major complications apparent
[2018-01-09 13:55] VITALS: BP 134/81; PULSE 77; O2SAT 94
== END | disposition home or self-care (01) ==
LOC: C.GI 12:10
PROVIDERS: ATTEND Internal Medicine
DX: Z12.11 Encounter for screening for malignant neoplasm of colon (principal); K57.30 Diverticulosis of large intestine without perforation or abscess without bleeding; K64.8 Other hemorrhoids; K21.9 Gastro-esophageal reflux disease without esophagitis; E78.00 Pure hypercholesterolemia, unspecified; I10 Essential (primary) hypertension; J44.9 Chronic obstructive pulmonary disease, unspecified; E78.5 Hyperlipidemia, unspecified; M19.90 Unspecified osteoarthritis, unspecified site; F17.200 Nicotine dependence, unspecified, uncomplicated; I25.2 Old myocardial infarction; Z98.1 Arthrodesis status; Z91.030 Bee allergy status; Z88.5 Allergy status to narcotic agent; Z88.6 Allergy status to analgesic agent; Z79.82 Long term (current) use of aspirin; Z90.89 Acquired absence of other organs

== ENCOUNTER 2018-01-24 11:06 | Emergency (ER) | payer OTHER ==
[~2018-01-24] VITALS: Ht 172.7 cm; Wt 77.0 kg
[~2018-01-24 11:06] MED LIST changes: -LIDOCAINE HCL 2% 2 ML VIAL (20MG/ML) ONE; -PROPOFOL IV EMULSION 10 MG/ML 20 ML VIAL IV ONE; -SODIUM CHLORIDE 0.9% 500ML 500 ML IV ONE
[2018-01-24 11:08] VITALS: TEMP 36.8; Ht 172.7 cm; Wt 77.0 kg
[2018-01-24] MEDS ORDERED: KETOROLAC TROMETHAMINE 30 MG/ML VIAL IV STA (11:25)
[2018-01-24] MEDS ORDERED: DiphenhydrAMINE HCL 50 MG/ML VIAL IV STA (11:25)
[2018-01-24] MEDS ORDERED: MAGNESIUM SULFATE 1GM / D5W 1 GM in PREMIXED IN D5W 100 ML IV STA (11:25)
[2018-01-24] MEDS ORDERED: PROCHLORPERAZINE INJ 10 MG in SYRINGE 8 ML IV STA (11:25)
--- NOTE | 2018-01-24 11:32 | EMERGENCY ROOM VISIT NOTE ---
History First contact with patient: 11:15 Chief Complaint: HYPERTENSION Stated Complaint: HIGH BLOOD PRESSURE, CHEST PAIN, HEADACHE History of Present Illness The patient is a 52 year old male hx of HTN, NSTEMI, COPD, HLD, MVP, GERD, lumbar radiculopathy, B12 def and SAUL who presents to the Emergency Room with complaints of elevated BP and headache. Headache is different but not the worst headache of his life, 9/10, intermittent. Asosciated with vision changes, nausea , dizziness, chest tightness and sob. Denies vomiting, abdominal pain, dysuria, c/d. Reports taking BP prior to arrival and it was 188/100. Pt did take metoprolol and losartan this AM at 7:30am. Review of Systems see below Constitutional: No fever Eyes: + problem reported (vision feels "spinny") Respiratory: + shortness of breath Cardiovascular: + chest pain Abdomen: + nausea, No pain, No vomiting, No diarrhea, No constipation Genitourinary - Male: No dysuria Neurologic: + problem reported (headache, dizziness) Past Medical/Surgical History Medical Problems: (1) Back pain (2) Bronchospasm, acute (3) COPD (chronic obstructive pulmonary disease) (4) GERD (gastroesophageal reflux disease) (5) Hyperlipemia (6) Hypertension (7) Lumbar radiculopathy (8) MVP (mitral valve prolapse) (9) SAUL (obstructive sleep apnea) (10) Vitamin B12 deficiency Surgical Problems: (1) H/O cardiac catheterization (2) Hx of arthroscopic knee surgery (3) S/P appy (4) S/P cervical spinal fusion (5) S/P tonsillectomy and adenoidectomy Family History Heart disease Hypertension Social History Smoking Status: Current Every Day Smoker Drug Use: none Marital Status: Housing Status: lives with family Occupation Status: unemployed Current/Historical Medications Scheduled Aspirin (Aspirin Ec), 325 MG PO QAM Atorvastatin (Lipitor), 80 MG PO HS Cyanocobalamin (Vitamin B-12), 100 MCG PO DAILY Docusate Sodium (Colace), 1 CAP PO BID Epinephrine (Epipen), 0.3 MG IM UD Fluticasone Furoate-Vilanterol (Breo Ellipta), 1 PUFF INH QAM Gabapentin (Gabapentin), 900 MG PO TID Losartan Potassium (Cozaar), 100 MG PO QAM Metoprolol Tartrate (Lopressor) (Lopressor), 12.5 MG PO BID Morphine Sulfate (Morphine Sulfate Er), 15 MG PO Q12 Omeprazole (Prilosec), 20 MG PO BID Scheduled PRN Albuterol Sulfate (Proventil Hfa), 2 PUFF INH Q4H PRN for SOB/Wheezing Oxycodone Hcl (Oxycodone Hcl), 15 MG PO Q6H PRN for Pain Tiotropium [place] (Spiriva Handihaler), 2 PUFF INH DAILY PRN for Shortness of Breath Physical Exam Vital Signs Date Time Temp Pulse Resp B/P (MAP) Pulse Ox O2 Delivery O2 Flow Rate FiO2 01/24/18 13:00 77 18 122/85 93 Room Air 01/24/18 12:54 78 18 01/24/18 12:30 120/78 01/24/18 12:10 80 01/24/18 12:00 146/97 01/24/18 11:54 89 19 92 01/24/18 11:49 85 18 172/107 94 Room Air 01/24/18 11:47 01/24/18 11:34 94 01/24/18 11:28 89 18 167/112 94 Room Air 01/24/18 11:27 167/112 01/24/18 11:08 36.8 98 20 190/121 95 Room Air Physical Exam see below General Appearance: no apparent distress Head: normocephalic, atraumatic Eyes: normal inspection, PERRL, EOMI ENT: normal ENT inspection Respiratory/Chest: lungs clear, normal breath sounds Cardiovascular: no murmur, + tachycardia Abdomen / GI: normal bowel sounds, non tender, soft Extremities: no calf tenderness, no pedal edema 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/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 as tested, alert, + pertinent finding ( strength 5/5 b/l UEs; LLE 5/5; RLE strength 3/5; sensation intact bilaterally) Medical Decision & Procedures Laboratory Results 01/24/18 11:36 Red Blood Count 4.69, Mean Corpuscular Volume 93.6, Mean Corpuscular Hemoglobin 32.6, Mean Corpuscular Hemoglobin Concent 34.9, Mean Platelet Volume 9.7, Neutrophils (%) (Auto) 54.4, Lymphocytes (%) (Auto) 36.6, Monocytes (%) (Auto) 5.8, Eosinophils (%) (Auto) 2.5, Basophils (%) (Auto) 0.4, Neutrophils # (Auto) 5.49, Lymphocytes # (Auto) 3.69, Monocytes # (Auto) 0.59, Eosinophils # (Auto) 0.25, Basophils # (Auto) 0.04 01/24/18 11:36 Test 01/24/18 11:24 01/24/18 11:36 Creatine Kinase MB Ratio (0-3.0) White Blood Count 10.09 K/uL (4.8-10.8) Red Blood Count 4.69 M/uL (4.7-6.1) Hemoglobin 15.3 g/dL (14.0-18.0) Hematocrit 43.9 % (42-52) Mean Corpuscular Volume 93.6 fL (80-100) Mean Corpuscular Hemoglobin 32.6 pg (25-34) Mean Corpuscular Hemoglobin Concent 34.9 g/dl (32-36) Platelet Count 306 K/uL (130-400) Mean Platelet Volume 9.7 fL (7.4-10.4) Neutrophils (%) (Auto) 54.4 % Lymphocytes (%) (Auto) 36.6 % Monocytes (%) (Auto) 5.8 % Eosinophils (%) (Auto) 2.5 % Basophils (%) (Auto) 0.4 % Neutrophils # (Auto) 5.49 K/uL (1.4-6.5) Lymphocytes # (Auto) 3.69 K/uL (1.2-3.4) Monocytes # (Auto) 0.59 K/uL (0.11-0.59) Eosinophils # (Auto) 0.25 K/uL (0-0.5) Basophils # (Auto) 0.04 K/uL (0-0.2) RDW Standard Deviation 46.0 fL (36.4-46.3) RDW Coefficient of Variation 13.4 % (11.5-14.5) Immature Granulocyte % (Auto) 0.3 % Immature Granulocyte # (Auto) 0.03 K/uL (0.00-0.02) Anion Gap 2.0 mmol/L (3-11) Est Creatinine Clear Calc Drug Dose 87.8 ml/min Estimated GFR () 107.5 Estimated GFR (Non- 92.7 BUN/Creatinine Ratio 15.0 (10-20) Calcium Level 9.3 mg/dl (8.5-10.1) Creatine Kinase MB 0.7 ng/ml (0.5-3.6) Troponin I < 0.015 ng/ml (0-0.045) Medications Administered Medications (Trade) Dose Ordered Sig/Susana Route Start Time Stop Time Status Last Admin Dose Admin Prochlorperazine Edisylate 10 mg/ Syringe 10 ml @ 5 mls/min NOW STAT IV 01/24/18 11:25 01/24/18 11:32 DC 01/24/18 11:50 5 MLS/MIN Magnesium Sulfate 1 gm/Prmx 100 ml @ 100 mls/hr NOW STAT IV 01/24/18 11:25 01/24/18 12:24 DC 01/24/18 11:50 100 MLS/HR Diphenhydramine HCl (Benadryl Inj) 50 mg NOW STAT IV 01/24/18 11:25 01/24/18 11:32 DC 01/24/18 11:43 50 MG Ketorolac Tromethamine (Toradol Inj) 30 mg NOW STAT IV 01/24/18 11:25 01/24/18 11:32 DC 01/24/18 11:43 30 MG Medical Decision 52 year old male hx of HTN, NSTEMI, COPD, HLD, MVP, GERD, lumbar radiculopathy, B12 def and SAUL who presents to the Emergency Room with complaints of elevated BP and headache since this AM concerning for hypertensive emergency vs. migraine headache vs. [place] vs. CVA Patient's headache and BP improved after receiving a migraine cocktail. Given multiple complaints and history of NSTEMI despite normal EKG and cardiac enzymes today, patient encouraged to stay for further work up to rule out a cardiac etiology however patient refused to stay and patient's wishes were respected. -Ordered EKG - sinus 88 QTc 462 -CXR - normal -Ordered Troponin and CKMB - negative -Ordered CBC and BMP - wnl -Ordered migraine cocktail: toradol 30mg, Compazine 10mg, Mag sulphate 1g, Benadryl 50mg IV once - reported improvement Medication Reconcilliation Current Medication List: was personally reviewed by me Blood Pressure Screening Patient's blood pressure: Elevated blood pressure Impression Primary Impression: Headache Departure Information Dispostion Home / Self-Care Condition GOOD Referrals Mansoor Zhao M.D. (PCP) Patient Instructions My [facility] Problem Qualifiers Primary Impression: Headache Headache type: unspecified Headache chronicity pattern: unspecified pattern Intractability: not intractable Qualified Codes: R51 - Headache
[2018-01-24 11:46] LABS: BASO % 0.4 %; BASO ABS # 0.04 K/uL (0-0.2); EOS % 2.5 %; EOS ABS # 0.25 K/uL (0-0.5); HEMATOCRIT 43.9 % (42-52); HEMOGLOBIN 15.3 g/dL (14.0-18.0); IG# 0.03 K/uL (0.00-0.02); LYMPH % 36.6 %; LYMPH ABS # 3.69 K/uL (1.2-3.4); MEAN CELL VOLUME 93.6 fL (80-100); MEAN CORPUSCULAR HEMOGLOBIN 32.6 pg (25-34); MEAN CORPUSCULAR HGB CONC 34.9 g/dl (32-36); MEAN PLATELET VOLUME 9.7 fL (7.4-10.4); MONO % 5.8 %; MONO ABS # 0.59 K/uL (0.11-0.59); NEUT % 54.4 %; NEUT ABS # 5.49 K/uL (1.4-6.5); PLATELET COUNT 306 K/uL (130-400); RED CELL DISTRIBUTION WIDTH CV 13.4 % (11.5-14.5); WHITE BLOOD COUNT 10.09 K/uL (4.8-10.8)
[2018-01-24 12:02] LABS: BLOOD UREA NITROGEN 14 mg/dl (7-18); CALCIUM 9.3 mg/dl (8.5-10.1); CARBON DIOXIDE 25 mmol/L (21-32); CREATININE 0.93 mg/dl (0.60-1.40); GLUCOSE 94 mg/dl (70-99); POTASSIUM 4.2 mmol/L (3.5-5.1); SODIUM 138 mmol/L (136-145)
[2018-01-24 12:07] LABS: CKMB 0.7 ng/ml (0.5-3.6)
--- NOTE | 2018-01-24 12:32 | DIAGNOSTIC IMAGING REPORT ---
CHEST ONE VIEW PORTABLE HISTORY: 52 years-old Male Pt c/o chest poain acute atypical chest pain COMPARISON: Chest radiographs 11/20/2016 TECHNIQUE: Portable AP view of the chest FINDINGS: Cardiac mediastinal and hilar silhouettes are within normal limits. No pneumothorax, pleural effusion, focal airspace consolidation or overt pulmonary edema. Bones of the chest appear grossly intact. IMPRESSION: No acute process. The above report was generated using voice recognition software. It may contain grammatical, syntax or spelling errors. Electronically signed by: Edmond Carbajal M.D. 01/24/2018 12:31 PM Dictated Date/Time: 01/24/2018 12:29 PM
[2018-01-24 13:00] VITALS: BP 122/85; PULSE 77; O2SAT 93
--- NOTE | 2018-01-24 13:02 | EMERGENCY ROOM VISIT NOTE ---
ED Visit Note First contact with patient: 11:15 Resident Physician Supervision Note: I interviewed and examined the patient. Discussed with Dr. Riddle and agree with findings and plan as documented in the note. Documented By: Abhi Burns This is a 52-year-old male who presents the emergency department with a number of complaints. The patient's main complaint appears to be his headache along with hypertension associated with it. He does not appear to be in any distress and has no evidence of meningitis or encephalitis on examination. He does have a significant NSTEMI history and just had a cath performed in October. The patient relates that this pain is different from that pain. Using shared medical decision making with the patient we decided to try a migraine cocktail for the patient's headache is I suspect that this is the cause of his pain. Repeat examination revealed much improvement the patient's symptoms with a normal blood pressure. I discussed this these findings with the patient's and recommended he be admitted for observation due to his cardiac history however he is refusing and wishes to go home. I recommended he return if he develops severe chest pain. Patient was in agreement with the treatment plan. The patient has demonstrated no significant defect in the decision-making capacity to make choices. The encounter had a good level of communication with language the patient can easily understand. I feel trust was present and conveyed that our action/intentions were the best interest of the patient. The patient was given all relevant information and reiterated the explained risks and benefits. The patient explained the reasoning for refusing treatment clearly. The patient possesses and expresses a set of values and goals, the ability to communicate and understand, and an ability to reason and deliberate. Despite acting emphatically, attentively and with the utmost patient's the patient declined further treatment. I offered options, negotiated, and explored every reasonable choice. I must respect the patient's autonomy and that they feel that their choices are best for them despite the associated risks of leaving without completing the evaluation. The patient was informed about the findings as listed above. All questions were answered and he was pleased with the treatment. Return instructions were outlined and the patient was discharged in stable condition. Problem List Medical Problems: (1) Back pain Status: Chronic (2) Hypertension Status: Chronic (3) Lumbar radiculopathy Status: Resolved Surgical Problems: (1) H/O cardiac catheterization Status: Chronic Current/Historical Medications Scheduled Aspirin (Aspirin Ec), 325 MG PO QAM Atorvastatin (Lipitor), 80 MG PO HS Cyanocobalamin (Vitamin B-12), 100 MCG PO DAILY Docusate Sodium (Colace), 1 CAP PO BID Epinephrine (Epipen), 0.3 MG IM UD Fluticasone Furoate-Vilanterol (Breo Ellipta), 1 PUFF INH QAM Gabapentin (Gabapentin), 900 MG PO TID Losartan Potassium (Cozaar), 100 MG PO QAM Metoprolol Tartrate (Lopressor) (Lopressor), 12.5 MG PO BID Morphine Sulfate (Morphine Sulfate Er), 15 MG PO Q12 Omeprazole (Prilosec), 20 MG PO BID Scheduled PRN Albuterol Sulfate (Proventil Hfa), 2 PUFF INH Q4H PRN for SOB/Wheezing Oxycodone Hcl (Oxycodone Hcl), 15 MG PO Q6H PRN for Pain Tiotropium [place] (Spiriva Handihaler), 2 PUFF INH DAILY PRN for Shortness of Breath Allergies Coded Allergies: BEE STING (Verified Allergy, Severe, PASSES OUT, 01/09/18) Naproxen (Verified Allergy, Intermediate, SEVERE RASH, 01/09/18) Tramadol (Verified Adverse Reaction, Intermediate, GI SYMPTOMS, 01/09/18) Vital Signs Date Time Temp Pulse Resp B/P (MAP) Pulse Ox O2 Delivery O2 Flow Rate FiO2 01/24/18 12:10 80 01/24/18 11:49 85 18 172/107 94 Room Air 01/24/18 11:47 01/24/18 11:34 94 01/24/18 11:28 89 18 167/112 94 Room Air 01/24/18 11:27 167/112 01/24/18 11:08 36.8 98 20 190/121 95 Room Air Laboratory Results 01/24/18 11:36 Red Blood Count 4.69, Mean Corpuscular Volume 93.6, Mean Corpuscular Hemoglobin 32.6, Mean Corpuscular Hemoglobin Concent 34.9, Mean Platelet Volume 9.7, Neutrophils (%) (Auto) 54.4, Lymphocytes (%) (Auto) 36.6, Monocytes (%) (Auto) 5.8, Eosinophils (%) (Auto) 2.5, Basophils (%) (Auto) 0.4, Neutrophils # (Auto) 5.49, Lymphocytes # (Auto) 3.69, Monocytes # (Auto) 0.59, Eosinophils # (Auto) 0.25, Basophils # (Auto) 0.04 01/24/18 11:36 Test 01/24/18 11:24 01/24/18 11:36 Creatine Kinase MB Ratio (0-3.0) White Blood Count 10.09 K/uL (4.8-10.8) Red Blood Count 4.69 M/uL (4.7-6.1) Hemoglobin 15.3 g/dL (14.0-18.0) Hematocrit 43.9 % (42-52) Mean Corpuscular Volume 93.6 fL (80-100) Mean Corpuscular Hemoglobin 32.6 pg (25-34) Mean Corpuscular Hemoglobin Concent 34.9 g/dl (32-36) Platelet Count 306 K/uL (130-400) Mean Platelet Volume 9.7 fL (7.4-10.4) Neutrophils (%) (Auto) 54.4 % Lymphocytes (%) (Auto) 36.6 % Monocytes (%) (Auto) 5.8 % Eosinophils (%) (Auto) 2.5 % Basophils (%) (Auto) 0.4 % Neutrophils # (Auto) 5.49 K/uL (1.4-6.5) Lymphocytes # (Auto) 3.69 K/uL (1.2-3.4) Monocytes # (Auto) 0.59 K/uL (0.11-0.59) Eosinophils # (Auto) 0.25 K/uL (0-0.5) Basophils # (Auto) 0.04 K/uL (0-0.2) RDW Standard Deviation 46.0 fL (36.4-46.3) RDW Coefficient of Variation 13.4 % (11.5-14.5) Immature Granulocyte % (Auto) 0.3 % Immature Granulocyte # (Auto) 0.03 K/uL (0.00-0.02) Anion Gap 2.0 mmol/L (3-11) Est Creatinine Clear Calc Drug Dose 87.8 ml/min Estimated GFR () 107.5 Estimated GFR (Non- 92.7 BUN/Creatinine Ratio 15.0 (10-20) Calcium Level 9.3 mg/dl (8.5-10.1) Creatine Kinase MB 0.7 ng/ml (0.5-3.6) Troponin I < 0.015 ng/ml (0-0.045) Medications Administered Medications (Trade) Dose Ordered Sig/Susana Route Start Time Stop Time Status Last Admin Dose Admin Prochlorperazine Edisylate 10 mg/ Syringe 10 ml @ 5 mls/min NOW STAT IV 01/24/18 11:25 01/24/18 11:32 DC 01/24/18 11:50 5 MLS/MIN Magnesium Sulfate 1 gm/Prmx 100 ml @ 100 mls/hr NOW STAT IV 01/24/18 11:25 01/24/18 12:24 DC 01/24/18 11:50 100 MLS/HR Diphenhydramine HCl (Benadryl Inj) 50 mg NOW STAT IV 01/24/18 11:25 01/24/18 11:32 DC 01/24/18 11:43 50 MG Ketorolac Tromethamine (Toradol Inj) 30 mg NOW STAT IV 01/24/18 11:25 01/24/18 11:32 DC 01/24/18 11:43 30 MG Departure Information Impression Primary Impression: Headache Dispostion Home / Self-Care Condition GOOD Forms WORK / SCHOOL INSTRUCTIONS, HOME CARE DOCUMENTATION FORM, IMPORTANT VISIT INFORMATION Patient Instructions Headache Pain, My [facility] Additional Instructions Return if you develop severe chest pain Need follow up with Dr Jain's office You have been examined and treated today on an emergency basis only. This is not a substitute for, or an effort to provide, complete comprehensive medical care. It is impossible to recognize and treat all injuries or illnesses in a single emergency department visit. It is therefore important that you follow up closely with Dr Zhao. Call as soon as possible for an appointment. Thank you for your time and consideration. I look forward to speaking with you again soon. Please don't hesitate to call us if you have any questions. Problem Qualifiers Primary Impression: Headache Headache type: unspecified Headache chronicity pattern: unspecified pattern Intractability: not intractable Qualified Codes: R51 - Headache
== END 2018-01-24 13:26 | disposition home or self-care (01) ==
LOC: C.EDB 11:07 → C.EDC 13:26
DX: R51 Headache (principal); I25.2 Old myocardial infarction; J44.9 Chronic obstructive pulmonary disease, unspecified; E78.5 Hyperlipidemia, unspecified; I34.1 Nonrheumatic mitral (valve) prolapse; K21.9 Gastro-esophageal reflux disease without esophagitis; M54.16 Radiculopathy, lumbar region; G47.33 Obstructive sleep apnea (adult) (pediatric); E53.8 Deficiency of other specified B group vitamins; Z98.1 Arthrodesis status; Z82.49 Family history of ischemic heart disease and other diseases of the circulatory system; F17.210 Nicotine dependence, cigarettes, uncomplicated; Z79.82 Long term (current) use of aspirin; Z79.899 Other long term (current) drug therapy

== ENCOUNTER → 2018-02-17 | Outpatient (CLI) | payer OTHER ==
[2018-02-17 12:28] LABS: HEMOGLOBIN A1C 5.8 % (4.5-5.6)
== END | disposition home or self-care (01) ==
LOC: C.LAB1850 09:56
PROVIDERS: ATTEND Internal Medicine
DX: R73.03 Prediabetes (principal)

== ENCOUNTER → 2018-02-19 | Outpatient (CLI) | payer OTHER | END | disposition home or self-care (01) | LOC: C.LABBFT 14:53 | PROVIDERS: ATTEND Internal Medicine | DX: R51 Headache (principal) ==

== ENCOUNTER 2018-05-15 13:11 | Inpatient (IN) | payer OTHER ==
[~2018-05-15] VITALS: Ht 172.7 cm; Wt 64.4 kg
[2018-05-15] MEDS ORDERED: OXYCODONE HCL IR 5 MG TAB (IMMEDIATE RELEASE) PO STA (14:24)
[2018-05-15 15:19] LABS: BASO % 0.4 %; BASO ABS # 0.05 K/uL (0-0.2); EOS % 2.6 %; EOS ABS # 0.37 K/uL (0-0.5); HEMATOCRIT 40.7 % (42-52); HEMOGLOBIN 13.8 g/dL (14.0-18.0); IG# 0.07 K/uL (0.00-0.02); LYMPH % 24.3 %; LYMPH ABS # 3.43 K/uL (1.2-3.4); MEAN CORPUSCULAR HEMOGLOBIN 32.5 pg (25-34); MEAN CORPUSCULAR HGB CONC 33.9 g/dl (32-36); MEAN PLATELET VOLUME 9.5 fL (7.4-10.4); MONO % 9.7 %; MONO ABS # 1.37 K/uL (0.11-0.59); NEUT % 62.5 %; NEUT ABS # 8.84 K/uL (1.4-6.5); PLATELET COUNT 391 K/uL (130-400); RED CELL DISTRIBUTION WIDTH CV 15.5 % (11.5-14.5); RED CELL DISTRIBUTION WIDTH SD 54.4 fL (36.4-46.3); WHITE BLOOD COUNT 14.13 K/uL (4.8-10.8)
[2018-05-15 15:30] LABS: INR 0.9 (0.9-1.1); PTT PATIENT 26.1 SECONDS (21.0-31.0)
[2018-05-15 15:41] LABS: ALBUMIN 3.6 gm/dl (3.4-5.0); BLOOD UREA NITROGEN 12 mg/dl (7-18); CARBON DIOXIDE 28 mmol/L (21-32); CREATININE 0.75 mg/dl (0.60-1.40); GLUCOSE 76 mg/dl (70-99); POTASSIUM 4.2 mmol/L (3.5-5.1); SODIUM 139 mmol/L (136-145); TOTAL PROTEIN 7.4 gm/dl (6.4-8.2)
[2018-05-15 15:42] LABS: ALKALINE PHOSPHATASE 81 U/L (45-117); ALT/SGPT 23 U/L (12-78); AST/SGOT 16 U/L (15-37)
--- NOTE | 2018-05-15 16:19 | DIAGNOSTIC IMAGING REPORT ---
L SHOULDER MIN 2 VIEWS ROUTINE CLINICAL HISTORY: Left shoulder pain. COMPARISON: None. DISCUSSION: No acute fractures or dislocations are visualized. There are mild degenerative changes within the AC joint. There are no erosive or destructive lesions. No visible peritendinous calcifications are visualized. IMPRESSION: No fractures, subluxations, or destructive lesions are visualized. Electronically signed by: Kaiden Baltazar M.D. 05/15/2018 4:18 PM Dictated Date/Time: 05/15/2018 4:17 PM
--- NOTE | 2018-05-15 16:19 | DIAGNOSTIC IMAGING REPORT ---
TWO VIEW CHEST CLINICAL HISTORY: Atypical chest pain. FINDINGS: PA and lateral chest radiographs are compared to study dated 01/24/2018. The cardiomediastinal silhouette is unremarkable. The lungs and pleural spaces are clear. There is no pneumothorax. The bony thorax appears intact. Fusion hardware is noted in the lower cervical spine. IMPRESSION: No active disease in the chest. Electronically signed by: Rio Laurent M.D. 05/15/2018 4:18 PM Dictated Date/Time: 05/15/2018 4:17 PM
[2018-05-15] MEDS ORDERED: CEFAZOLIN SOD 1000MG/7.5 ML IV PUSH IV STA (16:30)
--- NOTE | 2018-05-15 17:09 | History and Physical ---
History & Physical Date & Time of Service: May 15, 2018 at 17:06 Chief Complaint: Burning Pain In Left Shoulder Primary Care Physician: Mansoor Zhao M.D. History of Present Illness Source: patient 52 yo male reports having redness of his left shoulder for past 3 weeks. Patient denies any trauma, abrasions, insect bites. Patient thought it was a sun burn but it just never went away. Patient reports that he had sharp pain in his left shoulder that was starting around his ac joint. And slowly began to spread over the course of these past 3 weeks. Patient denies any fever, chills,a nausea vomiting. Patient states that the pain has gradually Patient also reports for the past 3 days having left sided sharp chest pain that occurs at rest. Pain is non radiating and last 15 seconds. Patient denies diaphoresis, SOB, N/V. Past Medical/Surgical History Medical Problems: (1) Acute coronary syndrome (2) Anaphylactic reaction to bee sting (3) Back pain (4) Bronchospasm, acute (5) Cardiac ischemia (6) Chest pain (7) Chest pain (8) COPD (chronic obstructive pulmonary disease) (9) Foreign body of right cornea (10) GERD (gastroesophageal reflux disease) (11) Hand laceration (12) Headache (13) Hyperlipemia (14) Hypertension (15) Laceration of index finger of right hand without complication (16) Lumbar radiculopathy (17) MVP (mitral valve prolapse) (18) Near syncope (19) Neck pain (20) NSTEMI (non-ST elevated myocardial infarction) (21) SAUL (obstructive sleep apnea) (22) Unstable angina (23) Vitamin B12 deficiency Surgical Problems: (1) H/O cardiac catheterization (2) Hx of arthroscopic knee surgery (3) S/P appy (4) S/P cervical spinal fusion (5) S/P tonsillectomy and adenoidectomy Family History Heart disease Hypertension Social History Smoking Status: Current Every Day Smoker Drug Use: none Marital Status: Housing status: lives with family Occupational Status: unemployed Immunizations History of Influenza Vaccine: Yes History of Tetanus Vaccine?: Yes Tetanus Immunization Date: Apr 05, 2006 History of Pneumococcal: Yes History of Hepatitis B Vaccine: No Allergies Coded Allergies: BEE STING (Verified Allergy, Severe, PASSES OUT, 05/15/18) Naproxen (Verified Allergy, Intermediate, SEVERE RASH, 05/15/18) Tramadol (Verified Adverse Reaction, Intermediate, GI SYMPTOMS, 05/15/18) Home Medications Scheduled Aspirin (Aspirin Ec), 325 MG PO QAM Atorvastatin (Lipitor), 80 MG PO HS Cyanocobalamin (Vitamin B-12), 100 MCG PO QAM Docusate Sodium (Colace), 1 CAP PO QAM Epinephrine (Epipen), 0.3 MG IM UD Fluticasone Furoate-Vilanterol (Breo Ellipta), 1 PUFF INH QAM Gabapentin (Gabapentin), 900 MG PO TID Losartan Potassium (Cozaar), 100 MG PO QAM Metoprolol Tartrate (Lopressor) (Lopressor), 25 MG PO BID Morphine Sulfate (Morphine Sulfate Er), 15 MG PO Q12 Scheduled PRN Albuterol Sulfate (Proventil Hfa), 2 PUFF INH Q4H PRN for SOB/Wheezing Omeprazole (Prilosec), 20 MG PO BID PRN for GI Upset Oxycodone Hcl (Oxycodone Hcl), 15 MG PO Q6H PRN for Pain Tiotropium [place] (Spiriva Handihaler), 2 PUFF INH QAM PRN for Shortness of Breath Review of Systems Constitutional: No fever Eyes: No worsening of vision ENT: No hearing loss Respiratory: No cough Cardiovascular: + chest pain Abdomen: No pain, No nausea Musculoskeletal: + joint pain, + muscle pain Genitourinary - Male: No hematuria Neurologic: No memory loss Psychiatric: No depression symptoms Endocrine: No fatigue Hematologic / Lymphatic: No abnormal bleeding/bruising Integumentary: + rash Allergic / Immunologic: No environmental allergies Physical Exam Vital Signs Date Time Temp Pulse Resp B/P (MAP) Pulse Ox O2 Delivery O2 Flow Rate FiO2 05/15/18 15:23 78 05/15/18 15:19 82 21 131/79 92 Room Air 05/15/18 13:16 36.7 90 18 144/82 96 Room Air General Appearance: WD/WN, no apparent distress Head: normocephalic Eyes: normal inspection ENT: normal ENT inspection Neck: supple, no adenopathy Respiratory/Chest: chest non-tender, lungs clear, normal breath sounds Cardiovascular: regular rate, rhythm, no edema Abdomen/GI: normal bowel sounds, non tender, soft Back: normal inspection Extremities/Musculoskelatal: + inflammation, + swelling, + pertinent finding ( left shoulder erythema) Neurologic/Psych: alert, oriented x 3 Skin: + rash (erythematous lesion noted on the left shoulder, it is warm and tender to palpation.) Lymphatic: no adenopathy Diagnostics Laboratory Results Results Past 24 Hours Test 05/15/18 14:55 05/15/18 15:05 Range/Units White Blood Count 14.13 4.8-10.8 K/uL Red Blood Count 4.24 4.7-6.1 M/uL Hemoglobin 13.8 14.0-18.0 g/dL Hematocrit 40.7 42-52 % Mean Corpuscular Volume 96.0 80-100 fL Mean Corpuscular Hemoglobin 32.5 25-34 pg Mean Corpuscular Hemoglobin Concent 33.9 32-36 g/dl Platelet Count 391 130-400 K/uL Mean Platelet Volume 9.5 7.4-10.4 fL Neutrophils (%) (Auto) 62.5 % Lymphocytes (%) (Auto) 24.3 % Monocytes (%) (Auto) 9.7 % Eosinophils (%) (Auto) 2.6 % Basophils (%) (Auto) 0.4 % Neutrophils # (Auto) 8.84 1.4-6.5 K/uL Lymphocytes # (Auto) 3.43 1.2-3.4 K/uL Monocytes # (Auto) 1.37 0.11-0.59 K/uL Eosinophils # (Auto) 0.37 0-0.5 K/uL Basophils # (Auto) 0.05 0-0.2 K/uL RDW Standard Deviation 54.4 36.4-46.3 fL RDW Coefficient of Variation 15.5 11.5-14.5 % Immature Granulocyte % (Auto) 0.5 % Immature Granulocyte # (Auto) 0.07 0.00-0.02 K/uL Erythrocyte Sedimentation Rate 21 0-14 mm/hr Prothrombin Time 9.3 9.0-12.0 SECONDS Prothromb Time International Ratio 0.9 0.9-1.1 Activated Partial Thromboplast Time 26.1 21.0-31.0 SECONDS Partial Thromboplastin Ratio 1.0 Sodium Level 139 136-145 mmol/L Potassium Level 4.2 3.5-5.1 mmol/L Chloride Level 106 98-107 mmol/L Carbon Dioxide Level 28 21-32 mmol/L Anion Gap 5.0 3-11 mmol/L Blood Urea Nitrogen 12 7-18 mg/dl Creatinine 0.75 0.60-1.40 mg/dl Est Creatinine Clear Calc Drug Dose 108.9 ml/min Estimated GFR () 120.5 Estimated GFR (Non- 104.0 BUN/Creatinine Ratio 16.0 10-20 Random Glucose 76 70-99 mg/dl Calcium Level 9.0 8.5-10.1 mg/dl Total Bilirubin 0.2 0.2-1 mg/dl Direct Bilirubin < 0.1 0-0.2 mg/dl Aspartate Amino Transf (AST/SGOT) 16 15-37 U/L Alanine Aminotransferase (ALT/SGPT) 23 12-78 U/L Alkaline Phosphatase 81 45-117 U/L C-Reactive Protein 0.54 0-0.29 mg/dl Total Protein 7.4 6.4-8.2 gm/dl Albumin 3.6 3.4-5.0 gm/dl Bedside Troponin I < 0.030 0-0.045 ng/ml Microbiology Results 05/15/18 Blood Culture, Received Pending 05/15/18 Blood Culture, Received Pending Diagnostic Radiology TWO VIEW CHEST CLINICAL HISTORY: Atypical chest pain. FINDINGS: PA and lateral chest radiographs are compared to study dated 01/24/2018. The cardiomediastinal silhouette is unremarkable. The lungs and pleural spaces are clear. There is no pneumothorax. The bony thorax appears intact. Fusion hardware is noted in the lower cervical spine. IMPRESSION: No active disease in the chest. Electronically signed by: Rio Laurent M.D. 05/15/2018 4:18 PM Dictated Date/Time: 05/15/2018 4:17 PM EKG Normal sinus rhythm Normal ECG When compared with ECG of 24-JAN-2018 11:26, No significant change was found Confirmed by Mansoor Sadler ([id number]) on 05/15/2018 5:02:58 PM Impression Assessment and Plan Left shoulder cellulitis in a 52 yo male who denies any significant injury to his shoulder 1)Left shoulder cellulitis will admit to tele due to his chest pain which will be discussed in problem 2. will continue cefazolin for now, IV 1 gr q8h Will monitor his shoulder and erythema. Will consult ortho to evaluate if his joint is affected. 2)chest pain HTN, Previous NSTEMI 2013, congenital prolapsed mitral valve Sounds atypical. likely related to problem one will order troponin x 3. Chronic Back Pain, lumbar S/p cervical laminectomy C3-C6 - Continue home pain meds - Cont gabapentin COPD Tobacco Abuse - Smoking cessation encouraged - Ordered nicotine patch - Continue Spiriva -cont. albuterol and home meds - Incentive spirometry GERD - Cont pantoprazole DVT ppx: ,heparin Teds, OOB Code Status: Full Code Advanced Directives Existing Advance Directive: No Existing Living Will: No Existing Power of Unemployment Benefits Claims Taker: No Existing Health Care Proxy: No Resuscitation Status VTE Prophylaxis Will order VTE Prophylaxis: Yes Social Service Consult None Apply
[2018-05-15] MEDS ORDERED: MoRPHine SULFATE 4 MG/ML 1 ML CARP\\VIAL IV STA (17:23)
[2018-05-15] MEDS ORDERED: EPINEPHRINE ADULT AUTO-INJECT 0.3 MG SYR IM PRN (17:45)
[2018-05-15] MEDS ORDERED: TIOTROPIUM BROMIDE 5 PUFF/90 MCG INH INH PRN (17:45)
[2018-05-15] MEDS ORDERED: PANTOprazole SOD 40 MG TAB PO PRN (17:45)
[2018-05-15 17:50] VITALS: O2SAT 95; Ht 172.7 cm; Wt 64.4 kg
--- NOTE | 2018-05-15 18:54 | EMERGENCY ROOM VISIT NOTE ---
History Report prepared by Abraham: Concha Delgadillo Under the Supervision of: Dr. Martin Mike M.D. First contact with patient: 14:13 Chief Complaint: SHOULDER PAIN Stated Complaint: BURNING PAIN IN LEFT SHOULDER History of Present Illness The patient is a 52 year old male who presents to the Emergency Room with complaints of worsening left shoulder pain that started 3 weeks ago. The patient rates his pain a 9/10 in severity. The patient reports it started becoming red and hot about 3-5 days ago and states it has been getting worse every day. He denies any recent injury to his shoulder. He notes he is able to move his left shoulder but it is painful. He denies fevers or vomiting. He reports his chest "feels a little different" and he has intermittent sharp pains that last about 15 seconds. He denies shortness of breath or diaphoresis. He has a history of a heart attack and notes he had an episode of sharp chest pain 2 days ago that felt similar to his heart attack. He denies a history of infection or recent insect bites that he is aware of. The patient is a current every day smoker and reports he smokes 1/2-3/4 pack per day. He states he saw Dr. Real of Orthopedics and had a shot in his right shoulder due to arthritis. He notes his PCP is Dr. Zhao. The patient reports he is allergic to Tramadol. Source of History: patient Onset: 3 weeks ago Position: shoulder (left) Symptom Intensity: 9/10 Timing: worsening Modifying Factors (Worsening): movement Associated Symptoms: + chest pain, No fevers, No diaphoresis, No SOB, No vomiting Review of Systems See HPI for pertinent positives & negatives. A total of 10 systems reviewed and were otherwise negative. Past Medical & Surgical Medical Problems: (1) Back pain (2) Bronchospasm, acute (3) Cellulitis of left arm (4) COPD (chronic obstructive pulmonary disease) (5) GERD (gastroesophageal reflux disease) (6) Hyperlipemia (7) Hypertension (8) Lumbar radiculopathy (9) MVP (mitral valve prolapse) (10) SAUL (obstructive sleep apnea) (11) Vitamin B12 deficiency Surgical Problems: (1) H/O cardiac catheterization (2) Hx of arthroscopic knee surgery (3) S/P appy (4) S/P cervical spinal fusion (5) S/P tonsillectomy and adenoidectomy Family History Heart disease Hypertension Social History Smoking Status: Current Every Day Smoker Drug Use: none Marital Status: Housing Status: lives with family Occupation Status: unemployed Current/Historical Medications Scheduled Aspirin (Aspirin Ec), 325 MG PO QAM Atorvastatin (Lipitor), 80 MG PO HS Cyanocobalamin (Vitamin B-12), 100 MCG PO QAM Docusate Sodium (Colace), 1 CAP PO QAM Epinephrine (Epipen), 0.3 MG IM UD Fluticasone Furoate-Vilanterol (Breo Ellipta), 1 PUFF INH QAM Gabapentin (Gabapentin), 900 MG PO TID Losartan Potassium (Cozaar), 100 MG PO QAM Metoprolol Tartrate (Lopressor) (Lopressor), 25 MG PO BID Morphine Sulfate (Morphine Sulfate Er), 15 MG PO Q12 Scheduled PRN Albuterol Sulfate (Proventil Hfa), 2 PUFF INH Q4H PRN for SOB/Wheezing Omeprazole (Prilosec), 20 MG PO BID PRN for GI Upset Oxycodone Hcl (Oxycodone Hcl), 15 MG PO Q6H PRN for Pain Tiotropium [place] (Spiriva Handihaler), 2 PUFF INH QAM PRN for Shortness of Breath Allergies Coded Allergies: BEE STING (Verified Allergy, Severe, PASSES OUT, 05/15/18) Naproxen (Verified Allergy, Intermediate, SEVERE RASH, 05/15/18) Tramadol (Verified Adverse Reaction, Intermediate, GI SYMPTOMS, 05/15/18) Physical Exam Vital Signs Date Time Temp Pulse Resp B/P (MAP) Pulse Ox O2 Delivery O2 Flow Rate FiO2 05/15/18 17:50 95 Room Air 05/15/18 17:15 90 18 147/82 95 Nasal Cannula 05/15/18 15:23 78 05/15/18 15:19 82 21 131/79 92 Room Air 05/15/18 13:16 36.7 90 18 144/82 96 Room Air Physical Exam Constitutional: Vital signs reviewed. Eyes: Pupils are equal round reactive to light. Conjunctiva are noninjected. ENT: Pharynx is clear without erythema or exudate. Mucous membranes are moist. Neck supple without meningeal signs. Respiratory: Clear to auscultation bilaterally. Breath sounds are equal bilaterally. Cardiovascular: Regular rate and rhythm. No rubs or gallops. GI: Soft, nondistended and nontender. Bowel sounds are present. Musculoskeletal: No peripheral edema. No lower extremity tenderness. Diffuse erythema and increased warmth to the left shoulder not extending to neck. Full range of motion of shoulder, no swelling to the left hand. Integumentary: No cyanosis. Neurological: The patient is awake and alert. No focal deficits. Psychiatric: Normal affect. Medical Decision & Procedures ER Provider Diagnostic Interpretation: Radiology results as stated below per my review and the radiologist's interpretation: L SHOULDER MIN 2 VIEWS ROUTINE CLINICAL HISTORY: Left shoulder pain. COMPARISON: None. DISCUSSION: No acute fractures or dislocations are visualized. There are mild degenerative changes within the AC joint. There are no erosive or destructive lesions. No visible peritendinous calcifications are visualized. IMPRESSION: No fractures, subluxations, or destructive lesions are visualized. Electronically signed by: Kaiden Baltazar M.D. 05/15/2018 4:18 PM Dictated Date/Time: 05/15/2018 4:17 PM TWO VIEW CHEST CLINICAL HISTORY: Atypical chest pain. FINDINGS: PA and lateral chest radiographs are compared to study dated 01/24/2018. The cardiomediastinal silhouette is unremarkable. The lungs and pleural spaces are clear. There is no pneumothorax. The bony thorax appears intact. Fusion hardware is noted in the lower cervical spine. IMPRESSION: No active disease in the chest. Electronically signed by: Rio Laurent M.D. 05/15/2018 4:18 PM Dictated Date/Time: 05/15/2018 4:17 PM Laboratory Results 05/15/18 14:55 Red Blood Count 4.24, Mean Corpuscular Volume 96.0, Mean Corpuscular Hemoglobin 32.5, Mean Corpuscular Hemoglobin Concent 33.9, Mean Platelet Volume 9.5, Neutrophils (%) (Auto) 62.5, Lymphocytes (%) (Auto) 24.3, Monocytes (%) (Auto) 9.7, Eosinophils (%) (Auto) 2.6, Basophils (%) (Auto) 0.4, Neutrophils # (Auto) 8.84, Lymphocytes # (Auto) 3.43, Monocytes # (Auto) 1.37, Eosinophils # (Auto) 0.37, Basophils # (Auto) 0.05 05/15/18 14:55 Test 05/15/18 14:55 05/15/18 15:05 White Blood Count 14.13 K/uL (4.8-10.8) Red Blood Count 4.24 M/uL (4.7-6.1) Hemoglobin 13.8 g/dL (14.0-18.0) Hematocrit 40.7 % (42-52) Mean Corpuscular Volume 96.0 fL (80-100) Mean Corpuscular Hemoglobin 32.5 pg (25-34) Mean Corpuscular Hemoglobin Concent 33.9 g/dl (32-36) Platelet Count 391 K/uL (130-400) Mean Platelet Volume 9.5 fL (7.4-10.4) Neutrophils (%) (Auto) 62.5 % Lymphocytes (%) (Auto) 24.3 % Monocytes (%) (Auto) 9.7 % Eosinophils (%) (Auto) 2.6 % Basophils (%) (Auto) 0.4 % Neutrophils # (Auto) 8.84 K/uL (1.4-6.5) Lymphocytes # (Auto) 3.43 K/uL (1.2-3.4) Monocytes # (Auto) 1.37 K/uL (0.11-0.59) Eosinophils # (Auto) 0.37 K/uL (0-0.5) Basophils # (Auto) 0.05 K/uL (0-0.2) RDW Standard Deviation 54.4 fL (36.4-46.3) RDW Coefficient of Variation 15.5 % (11.5-14.5) Immature Granulocyte % (Auto) 0.5 % Immature Granulocyte # (Auto) 0.07 K/uL (0.00-0.02) Erythrocyte Sedimentation Rate 21 mm/hr (0-14) Prothrombin Time 9.3 SECONDS (9.0-12.0) Prothromb Time International Ratio 0.9 (0.9-1.1) Activated Partial Thromboplast Time 26.1 SECONDS (21.0-31.0) Partial Thromboplastin Ratio 1.0 Anion Gap 5.0 mmol/L (3-11) Est Creatinine Clear Calc Drug Dose 108.9 ml/min Estimated GFR () 120.5 Estimated GFR (Non- 104.0 BUN/Creatinine Ratio 16.0 (10-20) Calcium Level 9.0 mg/dl (8.5-10.1) Total Bilirubin 0.2 mg/dl (0.2-1) Direct Bilirubin < 0.1 mg/dl (0-0.2) Aspartate Amino Transf (AST/SGOT) 16 U/L (15-37) Alanine Aminotransferase (ALT/SGPT) 23 U/L (12-78) Alkaline Phosphatase 81 U/L (45-117) C-Reactive Protein 0.54 mg/dl (0-0.29) Total Protein 7.4 gm/dl (6.4-8.2) Albumin 3.6 gm/dl (3.4-5.0) Bedside Troponin I < 0.030 ng/ml (0-0.045) Laboratory results as reviewed by me. Medications Administered Medications (Trade) Dose Ordered Sig/Susana Route Start Time Stop Time Status Last Admin Dose Admin Oxycodone HCl (Roxicodone Immediate Rel Tab) 5 mg NOW STAT PO 05/15/18 14:24 05/15/18 14:28 DC 05/15/18 15:16 5 MG Cefazolin Sodium (Cefazolin 1000mg Iv Push) 1,000 mg NOW STAT IV 05/15/18 16:30 05/15/18 16:33 DC 05/15/18 17:15 1,000 MG Morphine Sulfate (MoRPHine SULFATE INJ) 4 mg NOW STAT IV 05/15/18 17:23 05/15/18 17:26 DC 05/15/18 17:32 4 MG ECG Per My Interpretation Indication: chest pain Rate (beats per minute): 82 Rhythm: normal sinus Findings: no ectopy, other (no ST elevation, no PVC) ED Course 1413: The patient was evaluated in room B11B. A complete history and physical exam was performed. 1424: Ordered Oxycodone HCl 5 mg PO. 1545: I checked on the patient and he states he is feeling a little better. I discussed his blood tests with him. 1625: I discussed the test results with the patient. 1630: Ordered Cefazolin Sodium 1000 mg IV. 1640: I spoke with Dr. Flaherty, [facility] Hospitalist. She agrees to evaluate the patient for further management. 1722: The nurse called me and informed me that the patient is requesting more pain medications. I will order more Morphine. 1723: Ordered Morphine Sulfate 4 mg IV. Medical Decision This is a 52-year-old male who presents with left shoulder pain and chest pain. Differential diagnosis includes cellulitis, septic arthritis, bursitis, pleurisy, GERD, ACS. I did perform a limited focused review of portions of the patient's old chart on the electronic medical record. The patient was seen in January for chest pain, high blood pressure, and headache. He left AMA. I did evaluate the patient as noted above. The patient appears to have a cellulitis to the left shoulder. I do not have a high suspicion for septic arthritis. He is able to move the left arm to the full range of motion. IV access was established. The patient was placed on a continuous punch box tender. I did order and personally review the patient's 12-lead EKG and chest x-ray as described above. I did order and review the patient's blood work as noted in the electronic medical record. His white blood cell count is elevated. He has mild elevation of his CRP and ESR. I did order 2 sets of blood cultures. He was given oxycodone for pain. He had continued pain and was given morphine IV. He was given Ancef IV for the infection. I did discuss the test results with the patient. I did recommend hospitalization for further care and repeat cardiac enzymes. I did discuss case with the hospitalist and piano case maker. Medication Reconcilliation Current Medication List: was personally reviewed by me Blood Pressure Screening Patient's blood pressure: Elevated blood pressure Blood pressure disposition: Referred to PCP Consults Time Called: 1635 Consulting Physician: Dr. Flaherty [facility] Hospitalist Returned Call: [address] Flaherty, [facility] Hospitalist. She agrees to evaluate the patient for further management. Impression Primary Impression: Cellulitis of left upper extremity Additional Impression: Precordial chest pain Scribe Attestation The scribe's documentation has been prepared under my direct and personally reviewed by me in its entirety. I confirm that the note above accurately reflects all work, treatment, procedures, and medical decision making performed by me. Departure Information Dispostion Being Evaluated By Hospitalist Referrals Mansoor Zhao M.D. (PCP) Patient Instructions [facility] Problem Qualifiers
[2018-05-15] MEDS: OXYCODONE HCL IR 5 MG TAB (IMMEDIATE RELEASE) PO PRN (19:45)
[2018-05-15] MEDS: ENOXAPARIN 40 MG/0.4 ML SYR SC SCH (21:00)
[2018-05-15] MEDS: ATORVASTATIN 40 MG TAB PO SCH (21:45)
[2018-05-15] MEDS: METOPROLOL TARTRATE 25 MG TAB PO SCH (21:45)
[2018-05-15] MEDS: GABAPENTIN 300 MG CAP PO SCH (21:46)
[2018-05-15] MEDS: MoRPHine SULFATE CR 15 MG TAB (MS CONTIN) PO SCH (21:46)
[2018-05-15 23:07] VITALS: BP 102/69; PULSE 82; TEMP 36.9; O2SAT 94
[2018-05-16] VITALS (8 sets, daily range): BP systolic 111–128; BP diastolic 69–79; PULSE 74–84; TEMP 36.6–36.9; O2SAT 91–94
[2018-05-16] MEDS: OXYCODONE HCL IR 5 MG TAB (IMMEDIATE RELEASE) PO PRN ×4 (03:03→22:37)
[2018-05-16 06:06] LABS: BASO % 0.3 %; BASO ABS # 0.04 K/uL (0-0.2); EOS % 2.6 %; EOS ABS # 0.31 K/uL (0-0.5); HEMATOCRIT 40.6 % (42-52); HEMOGLOBIN 13.3 g/dL (14.0-18.0); IG# 0.06 K/uL (0.00-0.02); LYMPH ABS # 2.95 K/uL (1.2-3.4); MEAN CELL VOLUME 96.9 fL (80-100); MEAN CORPUSCULAR HEMOGLOBIN 31.7 pg (25-34); MEAN CORPUSCULAR HGB CONC 32.8 g/dl (32-36); MEAN PLATELET VOLUME 9.5 fL (7.4-10.4); MONO % 11.1 %; MONO ABS # 1.31 K/uL (0.11-0.59); NEUT % 60.5 %; NEUT ABS # 7.13 K/uL (1.4-6.5); PLATELET COUNT 361 K/uL (130-400); RED CELL DISTRIBUTION WIDTH CV 15.6 % (11.5-14.5); RED CELL DISTRIBUTION WIDTH SD 55.1 fL (36.4-46.3)
[2018-05-16 06:40] LABS: BLOOD UREA NITROGEN 15 mg/dl (7-18); CALCIUM 8.4 mg/dl (8.5-10.1); CARBON DIOXIDE 27 mmol/L (21-32); CREATININE 0.86 mg/dl (0.60-1.40); GLUCOSE 90 mg/dl (70-99); POTASSIUM 4.2 mmol/L (3.5-5.1); SODIUM 139 mmol/L (136-145)
[2018-05-16] MEDS: MoRPHine SULFATE CR 15 MG TAB (MS CONTIN) PO SCH ×2 (08:14→21:37)
[2018-05-16] MEDS: CEFAZOLIN IV 1,000 MG in SYRINGE 0 ML IV SCH ×4 (08:14→23:43)
[2018-05-16] MEDS: GABAPENTIN 300 MG CAP PO SCH ×3 (08:15→21:36)
[2018-05-16] MEDS: METOPROLOL TARTRATE 25 MG TAB PO SCH ×2 (08:15→21:36)
[2018-05-16] MEDS: ASPIRIN 325 MG ECTAB PO SCH (08:17)
[2018-05-16] MEDS: DOCUSATE SODIUM 100 MG CAP PO SCH (08:17)
[2018-05-16] MEDS: LOSARTAN POTASSIUM 50 MG TAB PO SCH (08:17)
[2018-05-16] MEDS: CYANOCOBALAMIN 100 MCG TAB (VIT B-12) PO SCH (08:18)
[2018-05-16] MEDS ORDERED: NURSING VERBAL MED ORDER ONE (12:00)
[2018-05-16] MEDS: NICOTINE 21 MG/24 HR TDSY EXT SCH (12:51)
--- NOTE | 2018-05-16 17:11 | ORTHOPEDIC CONSULTATION ---
DATE OF CONSULTATION: 05/16/2018 CHIEF COMPLAINT: Cellulitis of the left shoulder. HISTORY OF PRESENT ILLNESS: Meet is a pleasant 52-year-old male who recently saw Dr. Rea for right shoulder pain. He had an injection in his right shoulder and his right shoulder is doing much better. Unfortunately, a couple weeks ago, he began having left shoulder pain. He was out in the sun with his shirt off and when he came in, he notices shoulder was red and he figured he just had a sunburn. Unfortunately, shoulder pain continued and the redness persisted as well. He began having a little bit of chest pain, so he came to the Emergency Room. He was admitted for a cardiac workup and started on IV antibiotics for his left shoulder. X-rays of his shoulder were negative and orthopedics was consulted to evaluate and treat. He denies any history of shoulder pain before this incident. PAST MEDICAL HISTORY: Significant for COPD, GERD, hyperlipidemia, hypertension, heart disease, cardiac ischemia, mitral valve prolapse, non-ST elevated [place], obstructive sleep apnea, vitamin B12 deficiency. PAST SURGICAL HISTORY: Significant for cardiac catheterization, knee arthroscopy, appendectomy, cervical spinal fusion, tonsillectomy. MEDICATIONS: Include aspirin, Lipitor, vitamin B12, Colace, EpiPen, Breo, gabapentin, Cozaar, Lopressor, morphine, Proventil, Prilosec, oxycodone, and Spiriva. ALLERGIES: INCLUDE BEE STINGS, NAPROSYN, AND TRAMADOL. FAMILY HISTORY: Denies. SOCIAL HISTORY: He is a daily smoker. He is , lives with his family, but is currently unemployed. PHYSICAL EXAMINATION: EXTREMITIES: Left shoulder: Actively, he has about 90 degrees for elevation, 80 degrees of abduction, but it hurts him to go through range of motion. He has active external rotation to about 30 degrees and close to 5/5 motion with external rotation, but is limited a little bit by pain. Most of his pain is located directly over the AC joint. He has some pain in the subacromial space as well. Pain with cross-arm adduction. There is redness around his left shoulder and feels very warm to touch and it is certainly more swollen in his contralateral side. IMAGING: X-rays reviewed of the left shoulder show no evidence of fracture/dislocation or arthritis. I see no signs of significant calcific tendinitis. IMPRESSION: Cellulitis of the left shoulder. PLAN: He has been feeling better since he has received his first dose of Ancef. I am not sure how he got a cellulitis of his left shoulder, but it seems to be what is going on. I think it is reasonable to treat him with another couple doses of the IV antibiotics and see how he responds tomorrow morning. If he is doing a lot better tomorrow, then maybe discharged to home on oral antibiotics. I can see him in the office in 2-3 weeks to evaluate his progress. Office phone number is [phone].
[2018-05-16] MEDS: ATORVASTATIN 40 MG TAB PO SCH (21:36)
[2018-05-16] MEDS: ENOXAPARIN 40 MG/0.4 ML SYR SC SCH (21:37)
--- NOTE | 2018-05-16 23:46 | Progress Note ---
Subjective Date of Service: May 16, 2018. Problem List Medical Problems: (1) Acute coronary syndrome Status: Acute (2) Cellulitis of left upper extremity Status: Acute (3) Headache Status: Acute (4) Laceration of index finger of right hand without complication Status: Acute (5) Precordial chest pain Status: Acute Objective Vital Signs Date Time Temp Pulse Resp B/P (MAP) Pulse Ox O2 Delivery O2 Flow Rate FiO2 05/16/18 23:35 36.8 74 20 111/71 (84) 91 Room Air 05/16/18 20:00 36.8 81 20 112/69 (83) 94 Room Air 05/16/18 18:00 Room Air 05/16/18 15:33 36.8 84 20 115/75 (88) 93 05/16/18 11:23 36.9 84 18 122/77 (92) 91 05/16/18 08:30 94 Room Air 05/16/18 08:10 81 123/74 (90) 05/16/18 07:36 36.8 80 18 113/77 (89) 93 Room Air 05/16/18 04:30 36.6 77 18 128/79 (95) 92 Room Air 05/16/18 00:00 Room Air Laboratory Results Last 24 Hours Test 05/16/18 00:15 05/16/18 05:30 Troponin I < 0.015 ng/ml < 0.015 ng/ml White Blood Count 11.80 K/uL Red Blood Count 4.19 M/uL Hemoglobin 13.3 g/dL Hematocrit 40.6 % Mean Corpuscular Volume 96.9 fL Mean Corpuscular Hemoglobin 31.7 pg Mean Corpuscular Hemoglobin Concent 32.8 g/dl Platelet Count 361 K/uL Mean Platelet Volume 9.5 fL Neutrophils (%) (Auto) 60.5 % Lymphocytes (%) (Auto) 25.0 % Monocytes (%) (Auto) 11.1 % Eosinophils (%) (Auto) 2.6 % Basophils (%) (Auto) 0.3 % Neutrophils # (Auto) 7.13 K/uL Lymphocytes # (Auto) 2.95 K/uL Monocytes # (Auto) 1.31 K/uL Eosinophils # (Auto) 0.31 K/uL Basophils # (Auto) 0.04 K/uL RDW Standard Deviation 55.1 fL RDW Coefficient of Variation 15.6 % Immature Granulocyte % (Auto) 0.5 % Immature Granulocyte # (Auto) 0.06 K/uL Sodium Level 139 mmol/L Potassium Level 4.2 mmol/L Chloride Level 107 mmol/L Carbon Dioxide Level 27 mmol/L Anion Gap 5.0 mmol/L Blood Urea Nitrogen 15 mg/dl Creatinine 0.86 mg/dl Est Creatinine Clear Calc Drug Dose 95.0 ml/min Estimated GFR () 113.9 Estimated GFR (Non- 98.3 BUN/Creatinine Ratio 17.8 Random Glucose 90 mg/dl Calcium Level 8.4 mg/dl Assessment and Plan Left shoulder cellulitis in a 52 yo male who denies any significant injury to his shoulder 1)Left shoulder cellulitis will admit to tele due to his chest pain which will be discussed in problem 2. will continue cefazolin for now, IV 1 gr q8h Will monitor his shoulder and erythema. Will consult ortho to evaluate if his joint is affected. 2)chest pain HTN, Previous NSTEMI 2013, congenital prolapsed mitral valve Sounds atypical. likely related to problem one will order troponin x 3. Chronic Back Pain, lumbar S/p cervical laminectomy C3-C6 - Continue home pain meds - Cont gabapentin COPD Tobacco Abuse - Smoking cessation encouraged - Ordered nicotine patch - Continue Spiriva -cont. albuterol and home meds - Incentive spirometry GERD - Cont pantoprazole DVT ppx: ,heparin Teds, OOB Code Status: Full Code
[2018-05-17 04:00] VITALS: BP 128/84; PULSE 77; TEMP 36.9; O2SAT 93
[2018-05-17] MEDS: OXYCODONE HCL IR 5 MG TAB (IMMEDIATE RELEASE) PO PRN (05:40)
[2018-05-17 07:22] VITALS: BP 119/80; PULSE 81; TEMP 36.6; O2SAT 90
[2018-05-17 08:00] VITALS: O2SAT 90
[2018-05-17] MEDS: NICOTINE 21 MG/24 HR TDSY EXT SCH (08:26)
[2018-05-17] MEDS: GABAPENTIN 300 MG CAP PO SCH (08:27)
[2018-05-17] MEDS: LOSARTAN POTASSIUM 50 MG TAB PO SCH (08:27)
[2018-05-17] MEDS: DOCUSATE SODIUM 100 MG CAP PO SCH (08:27)
[2018-05-17] MEDS: ASPIRIN 325 MG ECTAB PO SCH (08:27)
[2018-05-17] MEDS: METOPROLOL TARTRATE 25 MG TAB PO SCH (08:27)
[2018-05-17] MEDS: CYANOCOBALAMIN 100 MCG TAB (VIT B-12) PO SCH (08:27)
[2018-05-17] MEDS: MoRPHine SULFATE CR 15 MG TAB (MS CONTIN) PO SCH (08:30)
[2018-05-17] MEDS: CEFAZOLIN IV 1,000 MG in SYRINGE 0 ML IV SCH (08:30)
--- NOTE | 2018-05-17 09:27 | PROGRESS NOTE ---
DATE: 05/17/2018 CHIEF COMPLAINT: Cellulitis of the left shoulder. PROGRESS: Meet is seen and examined at bedside today. Overall, he is feeling better. He says his shoulder does not burn any more. It still is sore but it feels much better than it did when he initially came in. He is optimistic about his progress and has no new complaints. PHYSICAL EXAMINATION: He is much better forward elevation. Today he has almost 160 degrees of forward elevation. Most of his pain is still located directly over the AC joint. He has some redness and warmth around his left shoulder and a little bit of swelling. It still looks slightly cellulitic. IMPRESSION: Cellulitis of the left shoulder. PLAN: All of his pain is located right at the AC joint, but he definitely has a cellulitic process going on. The Ancef seems to be helping and his symptoms are improving. I think he is stable enough to be discharged to home on oral Keflex if okay with medicine. I will see him in my office in 2-3 weeks for followup with his shoulder if he is still having problems. My office phone number is [phone].
[2018-05-17] MEDS ORDERED: AMOX875T PO (09:48)
--- NOTE | 2018-05-17 09:50 | Discharge Instructions ---
Discharge Instructions Date of Service May 17, 2018. Admission Reason for Admission: Cellulitis Of Left Arm Discharge Discharge Diagnosis / Problem: Cellulitis of left shoulder Discharge Goals Goal(s): Decrease discomfort, Improve function Activity Recommendations Activity Limitations: resume your previous activity . Instructions / Follow-Up Instructions / Follow-Up Followup with PCP in 1 week. I will see him in my office in 2-3 weeks for followup with his shoulder if he is still having problems. My office phone number is [phone]. Current Hospital Diet Patient's current hospital diet: AHA Diet (Heart Healthy) Discharge Diet Recommended Diet: AHA Diet (Heart Healthy) Pending Studies Studies pending at discharge: no Laboratory Results Hemoglobin A1c Test 02/17/18 10:00 Range/Units Estimated Average Glucose 120 mg/dl Hemoglobin A1c 5.8 H 4.5-5.6 % Medical Emergencies . Who to Call and When: Medical Emergencies: If at any time you feel your situation is an emergency, please call 911 immediately. . Non-Emergent Contact Non-Emergency issues call your: Primary Care Provider Call Non-Emergent contact if: you have any medication questions . . "Provider Documentation" section prepared by Baldomero Winter. .
--- NOTE | 2018-05-17 09:57 | Discharge Summary ---
Discharge Summary Date of Service May 17, 2018. Discharge Summary Admission Date: May 15, 2018 at 17:39 Immunizations: Have You Had Influenza Vaccine: Yes History of Tetanus Vaccine?: Yes Tetanus Immunization Date: Apr 05, 2006 History of Pneumococcal: Yes History of Hepatitis B Vaccine: No Hospital Course Left shoulder cellulitis in a 52 yo male who denies any significant injury to his shoulder 1)Left shoulder cellulitis will admit to tele due to his chest pain which will be discussed in problem 2. will continue cefazolin for now, IV 1 gr q8h Will monitor his shoulder and erythema. Will consult ortho to evaluate if his joint is affected. 2)chest pain HTN, Previous NSTEMI 2013, congenital prolapsed mitral valve Sounds atypical. likely related to problem one will order troponin x 3. Chronic Back Pain, lumbar S/p cervical laminectomy C3-C6 - Continue home pain meds - Cont gabapentin COPD Tobacco Abuse - Smoking cessation encouraged - Ordered nicotine patch - Continue Spiriva -cont. albuterol and home meds - Incentive spirometry GERD - Cont pantoprazole DVT ppx: ,heparin Teds, OOB Code Status: Full Code This includes examination of the patient, discharge planning, medication reconciliation, and communication with other providers. Discharge Instructions Please refer to the electronic Patient Visit Report (Discharge Instructions) for additional information.
[2018-05-17] MEDS ORDERED: AMOXICILLIN/CLAVULANATE TAB 875 MG TAB PO ONE (10:00)
[2018-05-17 10:23] VITALS: BP 119/80; PULSE 81; TEMP 36.6; O2SAT 90
== END 2018-05-17 10:40 | disposition home or self-care (01) | DRG 603 ==
LOC: C.EDB 13:12 → C.MED 17:39 → ENRESERV 18:11 → CANRESERV 18:11 → ENRESERV 18:31
PROVIDERS: ADMIT Internal Medicine Sports Medicine; ATTEND Internal Medicine Sports Medicine
DX: L03.114 Cellulitis of left upper limb (principal); K21.9 Gastro-esophageal reflux disease without esophagitis; J44.9 Chronic obstructive pulmonary disease, unspecified; E78.5 Hyperlipidemia, unspecified; I10 Essential (primary) hypertension; R07.9 Chest pain, unspecified; M54.5 Low back pain; G89.29 Other chronic pain; F17.200 Nicotine dependence, unspecified, uncomplicated; Z79.82 Long term (current) use of aspirin; Z79.899 Other long term (current) drug therapy

== ENCOUNTER 2019-10-29 22:51 | Inpatient (IN) ==
[2019-10-29] MEDS ORDERED: SODIUM CHLORIDE 0.9% 1000ML 2,000 ML IV ONE (23:18)
[2019-10-30] MEDS ORDERED: ACETAMINOPHEN 500 MG TAB PO STA (00:02)
[2019-10-30 00:09] LABS: BUN Creatinine Ratio 19.8 (10-20); Calcium 9.8 mg/dl (8.5-10.1); Creatinine Clr Calc Pharmacy 64.2 ml/min; Est GFR (African American) 67.5; Est GFR (Non-African American) 58.3; Magnesium 2.1 mg/dl (1.8-2.4); Partial Thromboplastin Ratio 1.1; Partial Thromboplastin Time 29.8 Seconds (21.0-31.0); Potassium 4.4 mmol/L (3.5-5.1); Prothrombin Time 10.5 Seconds (9.0-12.0)
[2019-10-30 00:11] LABS: Basophils # (auto) 0.05 K/uL (0-0.2); Basophils % (auto) 0.3 %; Eosinophils # (auto) 0.08 K/uL (0-0.5); Eosinophils % (auto) 0.5 %; Hematocrit (blood only) 43.1 % (42-52); Hemoglobin 14.7 g/dL (14.0-18.0); Immature Granulocytes # (auto) 0.04 K/uL (0.00-0.02); Immature Granulocytes % (auto) 0.2 %; Mean Corpuscular Hemoglobin 32.1 pg (25-34); Mean Corpuscular Hgb Conc 34.1 g/dL (32-36); Mean Corpuscular Volume 94.1 fL (80-100); Monocytes # (auto) 1.53 K/uL (0.11-0.59); Monocytes % (auto) 9.5 %; Neutrophils # (auto) 12.37 K/uL (1.4-6.5); Neutrophils % (auto) 76.5 %; Platelet Count 343 K/uL (130-400); RDW Coefficient of Variation 14.3 % (11.5-14.5); RDW Standard Deviation 49.2 fL (36.4-46.3); Red Blood Count 4.58 M/uL (4.7-6.1); White Blood Count 16.17 K/uL (4.8-10.8)
[2019-10-30 00:12] LABS: Albumin Globulin Ratio 0.8 (0.9-2); Bilirubin,Total 0.6 mg/dl (0.2-1); Globulin 4.9 gm/dl (2.5-4.0); Total Protein 8.9 gm/dl (6.4-8.2)
[2019-10-30] MEDS ORDERED: PIPERACILLIN/TAZOBACTAM 4.5 GM/120 ML BAG IV ONE (00:21)
[2019-10-30] MEDS ORDERED: LEVOFLOXACIN/D5W 750 MG/150 ML BAG IV STA (00:21)
[2019-10-30] MEDS ORDERED: PIPERACILL/TAZOBAC CONSULT ACTIVE PRN (00:21)
[2019-10-30] MEDS ORDERED: methylPREDNISolone 125 MG in SYRINGE 0 ML IV STA (01:23)
[2019-10-30] MEDS ORDERED: MoRPHine SULFATE 4 MG/ML 1 ML CARP\\VIAL IV PRN (01:23)
[2019-10-30] MEDS ORDERED: ACETAMINOPHEN 325 MG TAB PO PRN (01:23)
[2019-10-30] MEDS ORDERED: ALBUTEROL 0.083% NEBU SOLN 3 ML VIAL NEB PRN (01:23)
[2019-10-30] MEDS ORDERED: ONDANSETRON INJ 2 MG/ML 2 ML VIAL IV PRN (01:23)
[2019-10-30] MEDS ORDERED: ALBUT/IPRATROP 3MG/0.5MG NEB 3 ML VIAL NEB SCH (01:30)
--- NOTE | 2019-10-30 01:41 | History & Physical Report ---
Date of Service October 30, 2019 Assessment & Plan (1) Sepsis: Admit to PCU Initially was hypotensive with BP 93/63. This improved after fluid resuscitation. (2) Bilateral pneumonia: IV Zosyn and IV Levaquin given in the ED (3) COPD with exacerbation: IV Solumedrol 125mg now followed by 40mg IV Q 6hr. Duonebs scheduled Q 6 hr while awake. Albuterol nebs Q 2 hour prn. Continue Breo Ellipta Continue Spiriva. (4) Acute on chronic respiratory failure with hypoxemia: Supplemental oxygen Currently requiring 5L NC. (5) Polyneuropathy: Continue gabapentin. (6) Chronic pain syndrome: Continue extended release Morphine 15mg BID Continue oxycodone 15mg q6h prn breakthrough pain Morphine 4mg IV prn severe breakthrough pain. (7) GERD (gastroesophageal reflux disease): Pantoprazole ordered. Patient uses Omeprazole prn. (8) Hypertension: Losartan held due to hypotension Metoprolol ordered for am. History of Present Illness 54 y/o male presented to the ED with a 1 week history of increasing SOB, productive cough, and fever. He reports no chest pain, N/V/D, headache, sore throat, or lightheadedness. He was hypotensive on presentation with BP 93/63. Primary Care Provider: Mansoor Zhao MD Allergies Allergy/AdvReac Type Severity Reaction Status Date / Time bee venom protein (honey bee) Allergy Severe PASSES OUT Verified 10/29/19 23:20 naproxen Allergy Intermediate SEVERE RASH Verified 10/29/19 23:20 tramadol AdvReac Intermediate GI SYMPTOMS Verified 10/29/19 23:20 Home Medications Home Medications Medication Instructions Recorded Confirmed Type Spiriva Respimat 2 puff INHALATION DAILY 01/02/19 10/29/19 History albuterol sulfate 2 puff INHALATION Q4H PRN 01/02/19 10/29/19 History atorvastatin 80 mg PO HS 01/02/19 10/29/19 History cyanocobalamin (vitamin B-12) 100 mcg PO DAILY 01/02/19 10/29/19 History [Vitamin B-12] epinephrine [EpiPen] 0.3 mg IM UD PRN 01/02/19 10/29/19 History nitroglycerin 0.4 mg SUBLINGUAL ONCE PRN #20 tab 01/02/19 10/29/19 Rx metoprolol tartrate 50 mg tablet 50 mg PO BID #180 tab 04/21/19 10/29/19 Rx aspirin 325 mg tablet 325 mg PO DAILY tab 07/02/19 10/29/19 History docusate sodium 100 mg capsule 100 mg PO BID 07/02/19 10/29/19 History ipratropium 0.5 mg-albuterol 3 mg 3 ml INHALATION QID PRN ml 07/02/19 10/29/19 History (2.5 mg base)/3 mL nebulization soln duloxetine 60 mg capsule,delayed 60 mg PO DAILY #30 cap 07/09/19 10/29/19 Rx release fluticasone furoate 200 1 puffs INHALATION .COMPLEX #60 ea 07/16/19 10/29/19 Rx mcg-vilanterol 25 mcg/dose inhalation powder gabapentin 300 mg capsule 900 mg PO TID #270 cap 08/17/19 10/29/19 Rx losartan 100 mg tablet 100 mg PO DAILY #30 tab 09/14/19 10/29/19 Rx omeprazole 20 mg capsule,delayed 20 mg PO BID PRN cap 10/01/19 10/29/19 History release morphine 15 mg tablet,extended 15 mg PO BID #60 tab 10/15/19 10/29/19 Rx release oxycodone 15 mg tablet 15 mg PO Q6H #90 tab 10/26/19 10/29/19 Rx Past Med/Surg History Medical History Anaphylactic reaction (Resolved) Anemia (Chronic) Anxiety disorder (Chronic) Arthritis of right shoulder region (Chronic) Back pain (Chronic) Bilateral carpal tunnel syndrome (Chronic) Chronic pain (Chronic) Chronic pain syndrome (Chronic) COPD (chronic obstructive pulmonary disease) (Chronic) COPD, mild (Chronic) Dyshidrotic eczema (Chronic) Gait disturbance (Chronic) GERD (gastroesophageal reflux disease) (Chronic) H/O supraventricular tachycardia (Resolved) Hypercholesterolemia (Chronic) Hyperlipemia (Chronic) Hypertension (Chronic) Insomnia (Chronic) Internal hemorrhoids (Chronic) Lumbar radiculopathy (Resolved) 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) Mitral valve disorder (Chronic) MVP (mitral valve prolapse) (Chronic) Neural foraminal stenosis of cervical spine (Chronic) Nicotine dependence (Chronic) NSTEMI (non-ST elevated myocardial infarction) (Resolved) SAUL (obstructive sleep apnea) (Chronic) Polyneuropathy (Chronic) Pre-diabetes (Acute) Seborrheic keratosis (Chronic) Tobacco abuse (Chronic) 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) Vitamin B12 deficiency (Chronic) Surgical History H/O cardiac catheterization (Resolved) Hx of arthroscopic knee surgery (Resolved) S/P appy (Resolved) S/P cervical spinal fusion (Resolved) S/P tonsillectomy and adenoidectomy (Resolved) Family History Other No significant family history Social History Preferred Language: [place] Communication Ability: Effective 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 Head- atraumatic Eyes- PERRL, EOMI, anicteric ENT- oropharynx clear Neck- supple, no JVD, no adenopathy, no thyromegaly. Lungs- Decreased breath sounds at the bases, + expiratory wheezes b/l. Heart- regular rhythm; no murmur, no gallop, no rub appreciated Abdomen- normal bowel sounds, soft, nontender. Extremities- no pretibial edema, no calf tenderness; peripheral pulses intact Neuro- alert, oriented x 3; PERRL, EOMI; shipwright II-XII grossly intact, non-focal. Skin- warm & dry Results & Data Vital Signs (Past 12 Hours) Vital Signs Temp Pulse Pulse Resp BP BP Pulse Ox 10/30/19 01:01 130 H 23 91 10/30/19 01:00 131 H 24 114/71 91 10/30/19 00:50 133 H 25 H 93 10/30/19 00:45 136 H 23 111/80 92 10/30/19 00:40 132 H 24 93 10/30/19 00:31 132 H 27 H 92 10/30/19 00:30 132 H 23 125/77 92 10/30/19 00:24 37.1 C 130 H 24 116/57 L 92 10/30/19 00:20 131 H 23 88 L 10/30/19 00:16 131 H 24 135/72 93 10/30/19 00:15 130 H 24 135/72 94 10/30/19 00:10 133 H 23 93 10/30/19 00:01 133 H 23 93 10/30/19 00:00 133 H 22 146/78 H 86 L 10/29/19 23:50 134 H 23 92 10/29/19 23:45 134 H 26 H 126/81 94 10/29/19 23:40 134 H 27 H 93 10/29/19 23:33 38.5 C H 135 H 26 H 139/89 80 L 10/29/19 23:30 137 H 24 91 10/29/19 23:20 140 H 23 91 10/29/19 23:15 139 H 28 H 91 10/29/19 23:13 140 H 22 139/89 90 10/29/19 22:59 39.4 C H 144 H 24 93/63 L 80 L Laboratory Results Laboratory Results WBC 16.17 K/uL (4.8-10.8) H 10/29/19 23:25 RBC 4.58 M/uL (4.7-6.1) L 10/29/19 23:25 Hgb 14.7 g/dL (14.0-18.0) 10/29/19 23:25 Hct 43.1 % (42-52) 10/29/19 23:25 MCV 94.1 fL (80-100) 10/29/19 23:25 MCH 32.1 pg (25-34) 10/29/19 23:25 MCHC 34.1 g/dL (32-36) 10/29/19 23:25 RDW Std Deviation 49.2 fL (36.4-46.3) H 10/29/19 23:25 RDW Coeff of Liliya 14.3 % (11.5-14.5) 10/29/19 23:25 Plt Count 343 K/uL (130-400) 10/29/19 23:25 MPV 10.0 fL (7.4-10.4) 10/29/19 23:25 Immature Gran % (Auto) 0.2 % 10/29/19 23:25 Neut % (Auto) 76.5 % 10/29/19 23:25 Lymph % (Auto) 13.0 % 10/29/19 23:25 Stanley % (Auto) 9.5 % 10/29/19 23:25 Eos % (Auto) 0.5 % 10/29/19:25 Baso % (Auto) 0.3 % 10/29/19:25 Immature Gran # (Auto) 0.04 K/uL (0.00-0.02) H 10/29/19:25 Neut # (Auto) 12.37 K/uL (1.4-6.5) H 10/29/19:25 Lymph # (Auto) 2.10 K/uL (1.2-3.4) 10/29/19 23:25 Stanley # (Auto) 1.53 K/uL (0.11-0.59) H 10/29/19 23:25 Eos # (Auto) 0.08 K/uL (0-0.5) 10/29/19 23:25 Baso # (Auto) 0.05 K/uL (0-0.2) 10/29/19 23:25 PT 10.5 Seconds (9.0-12.0) 10/29/19 23:25 INR 1.0 (0.9-1.1) 10/29/19 23:25 APTT 29.8 Seconds (21.0-31.0) 10/29/19 23:25 PTT Ratio 1.1 10/29/19 23:25 Sodium 133 mmol/L (136-145) L 10/29/19 23:25 Potassium 4.4 mmol/L (3.5-5.1) 10/29/19:25 Chloride 100 mmol/L (98-107) 10/29/19 23:25 Carbon Dioxide 29 mmol/L (21-32) 10/29/19 23:25 Anion Gap 3.0 (3-11) 10/29/19 23:25 BUN 27 mg/dl (7-18) H 10/29/19 23:25 Creatinine 1.35 mg/dl (0.6-1.4) 10/29/19 23:25 Est Cr Clr Drug Dosing 64.2 ml/min 10/29/19 23:25 Est GFR ( Amer) 67.5 10/29/19 23:25 Est GFR (Non-Af Amer) 58.3 10/29/19 23:25 BUN/Creatinine Ratio 19.8 (10-20) 10/29/19 23:25 Glucose 132 mg/dl (70-99) H 10/29/19 23:25 Lactate 1.6 mmol/L (0.4-2.0) 10/29/19 23:25 Calcium 9.8 mg/dl (8.5-10.1) 10/29/19 23:25 Magnesium 2.1 mg/dl (1.8-2.4) 10/29/19 23:25 Total Bilirubin 0.6 mg/dl (0.2-1) 10/29/19 23:25 AST 21 U/L (15-37) 10/29/19 23:25 ALT 29 U/L (12-78) 10/29/19 23:25 Alkaline Phosphatase 111 U/L (45-117) 10/29/19 23:25 Total Protein 8.9 gm/dl (6.4-8.2) H 10/29/19 23:25 Albumin 4.0 gm/dl (3.4-5.0) 10/29/19 23:25 Globulin 4.9 gm/dl (2.5-4.0) H 10/29/19 23:25 Albumin/Globulin Ratio 0.8 (0.9-2) L 10/29/19 23:25 Influenza Type A Ag Neg for Influ A (Neg) 10/29/19 Unknown Influenza Type B Ag Neg for Influ B (Neg) 10/29/19 Unknown Code Status & VTE Plan VTE Prophylaxis Plan VTE Prophylaxis will be ordered: Yes PG Care Time/CCT Total # of Minutes Spent Total Time Spent: 65 Total Time Spent with Patient: Total time spent is greater than 50% in coordination of care (as documented) at patient's floor/unit and/or counseling patient: (1) Bilateral pneumonia Lung location: unspecified part of lung Pneumonia type: due to unspecified organism Qualified Code(s): J18.9 - Pneumonia, unspecified organism
[2019-10-30] MEDS ORDERED: NITROGLYCERIN SL 0.4 MG/TAB TAB SL PRN (02:27)
[2019-10-30] MEDS ORDERED: SODIUM CHLORIDE 0.9% 500 ML IV SCH (04:00)
[2019-10-30] MEDS: SODIUM CHLORIDE 0.9% 1000ML 1,000 ML IV SCH ×3 (04:18→15:06)
--- NOTE | 2019-10-30 04:23 | Emergency Department Note ---
Entered by Iván Chino acting as a scribe for Audelia Perez DO History of Present Illness General Chief complaint: Fever Stated complaint: FEVER FOR 3 DAYS, 104 @ 2130 Time Seen by Provider: 10/29/19 23:09 Source: patient and family () History of Present Illness Onset (ago): day(s) Pain Consistency: + constant Maximum Pain Intensity: 4 Quality: + other (fever) Associated symptoms: + other (Positive for a cough. Negative for diarrhea, constipation, abdominal pain, and urinary symptoms.) The patient is a 54 year old male who presents to the emergency department with complaints of a constant fever beginning two days ago. Per , the patient was in the emergency department last week for a fever. She states that the patient was dehydrated at that time and discharged home. She notes that the patient developed another fever two days ago. She reports that the patient has also had a cough. The patient denies any diarrhea, constipation, abdominal pain, and urinary symptoms. Per , the patient has been taking Tylenol with no relief of his symptoms. The patient states that he smokes cigarettes, but he notes that he does not have a history of pneumonia. He notes that he does not wear oxygen at home. He reports that he received a flu shot this year. Home Medications Home Medications Medication Instructions Recorded Confirmed Type Spiriva Respimat 2 puff INHALATION DAILY 01/02/19 10/29/19 History albuterol sulfate 2 puff INHALATION Q4H PRN 01/02/19 10/29/19 History atorvastatin 80 mg PO HS 01/02/19 10/29/19 History cyanocobalamin (vitamin B-12) 100 mcg PO DAILY 01/02/19 10/29/19 History [Vitamin B-12] epinephrine [EpiPen] 0.3 mg IM UD PRN 01/02/19 10/29/19 History nitroglycerin 0.4 mg SUBLINGUAL ONCE PRN #20 tab 01/02/19 10/29/19 Rx metoprolol tartrate 50 mg tablet 50 mg PO BID #180 tab 04/21/19 10/29/19 Rx aspirin 325 mg tablet 325 mg PO DAILY tab 07/02/19 10/29/19 History docusate sodium 100 mg capsule 100 mg PO BID 07/02/19 10/29/19 History ipratropium 0.5 mg-albuterol 3 mg 3 ml INHALATION QID PRN ml 07/02/19 10/29/19 History (2.5 mg base)/3 mL nebulization soln duloxetine 60 mg capsule,delayed 60 mg PO DAILY #30 cap 07/09/19 10/29/19 Rx release fluticasone furoate 200 1 puffs INHALATION .COMPLEX #60 ea 07/16/19 10/29/19 Rx mcg-vilanterol 25 mcg/dose inhalation powder gabapentin 300 mg capsule 900 mg PO TID #270 cap 08/17/19 10/29/19 Rx losartan 100 mg tablet 100 mg PO DAILY #30 tab 09/14/19 10/29/19 Rx omeprazole 20 mg capsule,delayed 20 mg PO BID PRN cap 10/01/19 10/29/19 History release morphine 15 mg tablet,extended 15 mg PO BID #60 tab 10/15/19 10/29/19 Rx release oxycodone 15 mg tablet 15 mg PO Q6H #90 tab 10/26/19 10/29/19 Rx Allergies Allergy/AdvReac Type Severity Reaction Status Date / Time bee venom protein (honey bee) Allergy Severe PASSES OUT Verified 10/29/19 23:20 naproxen Allergy Intermediate SEVERE RASH Verified 10/29/19 23:20 tramadol AdvReac Intermediate GI SYMPTOMS Verified 10/29/19 23:20 Past Med/Surg History Medical History Anaphylactic reaction (Resolved) Anemia (Chronic) Anxiety disorder (Chronic) Arthritis of right shoulder region (Chronic) Back pain (Chronic) Bilateral carpal tunnel syndrome (Chronic) Chronic pain (Chronic) Chronic pain syndrome (Chronic) COPD (chronic obstructive pulmonary disease) (Chronic) COPD, mild (Chronic) Dyshidrotic eczema (Chronic) Gait disturbance (Chronic) GERD (gastroesophageal reflux disease) (Chronic) H/O supraventricular tachycardia (Resolved) Hypercholesterolemia (Chronic) Hyperlipemia (Chronic) Hypertension (Chronic) Insomnia (Chronic) Internal hemorrhoids (Chronic) Lumbar radiculopathy (Resolved) 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) Mitral valve disorder (Chronic) MVP (mitral valve prolapse) (Chronic) Neural foraminal stenosis of cervical spine (Chronic) Nicotine dependence (Chronic) NSTEMI (non-ST elevated myocardial infarction) (Resolved) SAUL (obstructive sleep apnea) (Chronic) Polyneuropathy (Chronic) Pre-diabetes (Acute) Seborrheic keratosis (Chronic) Tobacco abuse (Chronic) 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) Vitamin B12 deficiency (Chronic) Surgical History H/O cardiac catheterization (Resolved) Hx of arthroscopic knee surgery (Resolved) S/P appy (Resolved) S/P cervical spinal fusion (Resolved) S/P tonsillectomy and adenoidectomy (Resolved) Family History Other No significant family history Social History Preferred Language: Citizen Of [place] Communication Ability: Effective Mental Health Unit Lead Psychologist Required: No Beliefs That Will Affect Care: None marital status: Current Living Situation: Spouse and Family Other Information That Helps Us Care for You: No Feels Safe at Home: Yes Safety Concerns: Feels Safe At This Time Smoking Status: Current every day smoker Tobacco Type: cigarettes ; Cigarettes Per Day: 20 ; Do You Dip or Chew Tobacco: No ; Second Hand Exposure: No ; Hx Alcohol Use: No Hx Substance Use: No Review of Systems See HPI for pertinent positives & negatives. and A total of 10 systems reviewed and were otherwise negative Physical Exam Vital Signs Vital Signs - 24 hr 10/29/19 22:59 10/29/19 23:13 10/29/19 23:15 Temperature 39.4 C H Temperature Source Oral Pulse Rate 144 H 140 H 139 H Pulse Rate [Apical] Pulse Rate from SpO2 Sensor 139 H 140 H Pulse Rhythm [Apical] Respiratory Rate 24 22 28 H Respiratory Effort / Characteristics Respiratory Depth Respiratory Pattern Blood Pressure 93/63 L 139/89 Blood Pressure [Right Arm] Blood Pressure Mean 73 104 Blood Pressure Mean [Right Arm] Pulse Oximetry 80 L 90 91 Oxygen Delivery Method Room Air Oxygen Flow Rate Sepsis Recent Fever Within 48 Hours Yes Sepsis New/Unexplained Change in Mental Status No Sepsis Action Taken by Nursing No Action Required 10/29/19 23:20 10/29/19 23:30 10/29/19 23:33 Temperature 38.5 C H Temperature Source Oral Pulse Rate 140 H 137 H Pulse Rate [Apical] 135 H Pulse Rate from SpO2 Sensor 141 H 137 H Pulse Rhythm [Apical] Regular Respiratory Rate 23 24 26 H Respiratory Effort / Characteristics Non-Labored Spontaneous Respiratory Depth Normal Respiratory Pattern Regular Blood Pressure Blood Pressure [Right Arm] 139/89 Blood Pressure Mean Blood Pressure Mean [Right Arm] 105 Pulse Oximetry 91 91 80 L Oxygen Delivery Method Room Air Oxygen Flow Rate 6 Sepsis Recent Fever Within 48 Hours Sepsis New/Unexplained Change in Mental Status Sepsis Action Taken by Nursing 10/29/19 23:40 10/29/19 23:45 10/29/19 23:50 Temperature Temperature Source Pulse Rate 134 H 134 H 134 H Pulse Rate [Apical] Pulse Rate from SpO2 Sensor 134 H 135 H 135 H Pulse Rhythm [Apical] Respiratory Rate 27 H 26 H 23 Respiratory Effort / Characteristics Respiratory Depth Respiratory Pattern Blood Pressure 126/81 Blood Pressure [Right Arm] Blood Pressure Mean 91 Blood Pressure Mean [Right Arm] Pulse Oximetry 93 94 92 Oxygen Delivery Method Oxygen Flow Rate Sepsis Recent Fever Within 48 Hours Sepsis New/Unexplained Change in Mental Status Sepsis Action Taken by Nursing 10/29/19 23:59 10/30/19 00:00 10/30/19 00:01 Temperature Temperature Source Pulse Rate 115 H 133 H 133 H Pulse Rate [Apical] Pulse Rate from SpO2 Sensor 141 H 134 H Pulse Rhythm [Apical] Respiratory Rate 22 23 Respiratory Effort / Characteristics Respiratory Depth Respiratory Pattern Blood Pressure 146/78 H Blood Pressure [Right Arm] Blood Pressure Mean 95 Blood Pressure Mean [Right Arm] Pulse Oximetry 86 L 93 Oxygen Delivery Method Oxygen Flow Rate Sepsis Recent Fever Within 48 Hours Sepsis New/Unexplained Change in Mental Status Sepsis Action Taken by Nursing 10/30/19 00:10 10/30/19 00:15 10/30/19 00:16 Temperature Temperature Source Pulse Rate 133 H 130 H Pulse Rate [Apical] 131 H Pulse Rate from SpO2 Sensor 133 H 130 H Pulse Rhythm [Apical] Regular Respiratory Rate 23 24 24 Respiratory Effort / Characteristics Non-Labored Respiratory Depth Normal Respiratory Pattern Regular Blood Pressure 135/72 Blood Pressure [Right Arm] 135/72 Blood Pressure Mean 90 Blood Pressure Mean [Right Arm] 93 Pulse Oximetry 93 94 93 Oxygen Delivery Method Nasal Cannula Oxygen Flow Rate 5 Sepsis Recent Fever Within 48 Hours Sepsis New/Unexplained Change in Mental Status Sepsis Action Taken by Nursing 10/30/19 00:20 10/30/19 00:24 10/30/19 00:30 Temperature 37.1 C Temperature Source Oral Pulse Rate 131 H 132 H Pulse Rate [Apical] 130 H Pulse Rate from SpO2 Sensor 136 H 132 H Pulse Rhythm [Apical] Regular Respiratory Rate 23 24 23 Respiratory Effort / Characteristics Labored Respiratory Depth Respiratory Pattern Blood Pressure 125/77 Blood Pressure [Right Arm] 116/57 L Blood Pressure Mean 92 Blood Pressure Mean [Right Arm] 76 Pulse Oximetry 88 L 92 92 Oxygen Delivery Method Nasal Cannula Oxygen Flow Rate 5 Sepsis Recent Fever Within 48 Hours Sepsis New/Unexplained Change in Mental Status Sepsis Action Taken by Nursing 10/30/19 00:31 10/30/19 00:40 10/30/19 00:45 Temperature Temperature Source Pulse Rate 132 H 132 H 136 H Pulse Rate [Apical] Pulse Rate from SpO2 Sensor 133 H 132 H 136 H Pulse Rhythm [Apical] Respiratory Rate 27 H 24 23 Respiratory Effort / Characteristics Respiratory Depth Respiratory Pattern Blood Pressure 111/80 Blood Pressure [Right Arm] Blood Pressure Mean 84 Blood Pressure Mean [Right Arm] Pulse Oximetry 92 93 92 Oxygen Delivery Method Oxygen Flow Rate Sepsis Recent Fever Within 48 Hours Sepsis New/Unexplained Change in Mental Status Sepsis Action Taken by Nursing 10/30/19 00:50 10/30/19 01:00 10/30/19 01:01 Temperature Temperature Source Pulse Rate 133 H 131 H 130 H Pulse Rate [Apical] Pulse Rate from SpO2 Sensor 133 H 131 H 131 H Pulse Rhythm [Apical] Respiratory Rate 25 H 24 23 Respiratory Effort / Characteristics Respiratory Depth Respiratory Pattern Blood Pressure 114/71 Blood Pressure [Right Arm] Blood Pressure Mean 82 Blood Pressure Mean [Right Arm] Pulse Oximetry 93 91 91 Oxygen Delivery Method Oxygen Flow Rate Sepsis Recent Fever Within 48 Hours Sepsis New/Unexplained Change in Mental Status Sepsis Action Taken by Nursing 10/30/19 01:10 10/30/19 01:15 10/30/19 01:20 Temperature Temperature Source Pulse Rate 127 H 127 H 128 H Pulse Rate [Apical] Pulse Rate from SpO2 Sensor 126 H 127 H 128 H Pulse Rhythm [Apical] Respiratory Rate 23 23 21 Respiratory Effort / Characteristics Respiratory Depth Respiratory Pattern Blood Pressure 108/61 Blood Pressure [Right Arm] Blood Pressure Mean 85 Blood Pressure Mean [Right Arm] Pulse Oximetry 91 90 91 Oxygen Delivery Method Oxygen Flow Rate Sepsis Recent Fever Within 48 Hours Sepsis New/Unexplained Change in Mental Status Sepsis Action Taken by Nursing HEENT: Head - normocephalic and atraumatic Pupils are equal, round, and reactive to light. Extraocular eye muscles are intact, and sclera are anicteric. Nose - moist nasal mucosa without discharge. Mouth - extremely dry buccal mucosa. Cracked lips. Oropharynx is nonerythematous and there is no tonsillar exudate or edema noted. Neck: Supple; no nuchal rigidity, cervical lymphadenopathy, or auscultated bruits. Heart: Regular rhythm and tachycardic. There is a normal S1 and S2 with no murmurs, clicks, or gallops appreciated. Lungs: No wheezes and rales. Rhonchi in all lung olson. Abdomen: Soft, completely nontender, with good bowel sounds. There are no palpable pulsatile masses or hepatosplenomegaly. There is no guarding, rigidity, or rebound noted. Abdomen distended. Extremities: No evidence of cyanosis, clubbing, or edema. There are easily palpable peripheral pulses. Skin: warm and dry with poor turgor and no rashes. Course Course 2311: The patient was evaluated in room B5. A complete history and physical examination were performed. Nursing notes and previous electronic medical records were reviewed. IV lock was established and labs were drawn as above. A septic protocol was performed. He was placed on supplemental oxygen as O2 saturations were in the 80s without it. An order was placed for continuous cardiac monitoring. Patient remained in sinus tachycardia at a rate of 130. A twelve-lead EKG was obtained. 2327: Sodium Chloride 2000 mls @ 999 mls/hr IV. Patient had chest x-ray which was concerning for bilateral patchy infiltrates. 0012: Acetaminophen 1000mg PO 0040: [place]. Xenia Amaya [facility]. Patient was ordered to have IV antibiotics 0043: I rechecked the patient. His blood pressure is improved. He still seems slightly confused. I discussed the results with him and his . 0048: Upon reevaluation, the patient is stable. I discussed the findings and the treatment plan with the patient. He expresses agreement and understanding. I spoke with Dr. Michaels of the [facility] [facility]. The patient will be evaluated for further management. 0101: Levofloxacin/Dextrose 750 mg in 150 mls @ 100 mls/hr IV, Piperacillin Sod/Tazobactam Sod 4.5gm in 120 mls @ 240 mls/hr IV Consultations Consultation #1: I reviewed the patient's case with Dr. Xenia Amaya [facility]. He will evaluate the patient for further management. Time: 00:48 Administered Medications Discontinued Medications Acetaminophen (Tylenol) 1,000 mg PO NOW STA Stop: 10/30/19 00:03 Last Admin: 10/30/19 00:12 Dose: 1,000 mg Documented by: [id number] Albuterol (Duoneb) 3 ml NEB Q6H ERIN Stop: 11/29/19 01:29 Last Admin: 10/30/19 02:45 Dose: 3 ml Documented by: [id number] Sodium Chloride (Nss 1000ml) 2,000 mls @ 999 mls/hr IV .Q2H1M ONE Stop: 10/30/19 01:18 Last Infusion: 10/30/19 01:58 Dose: 0 mls/hr Documented by: [id number] Admin: 10/29/19 23:27 Dose: 999 mls/hr Documented by: [id number] Levofloxacin/Dextrose (Levaquin/D5w) 750 mg in 150 mls @ 100 mls/hr IV NOW STA Stop: 10/30/19 01:50 Last Infusion: 10/30/19 01:58 Dose: 0 mls/hr Documented by: [id number] Admin: 10/30/19 01:01 Dose: 100 mls/hr Documented by: [id number] Piperacillin Sod/Tazobactam Sod (Zosyn) 4.5 gm in 120 mls @ 240 mls/hr IV NOW ONE Stop: 10/30/19 00:50 Last Infusion: 10/30/19 01:58 Dose: 0 mls/hr Documented by: [id number] Admin: 10/30/19 01:01 Dose: 240 mls/hr Documented by: [id number] Critical Care Time Critical Care Time: Yes Total Critical Care Time: 60 I have personally spent 60 minutes of critical care time in the direct management of this patient. This includes bedside care, interpretation of diagnostic studies, and testing, discussion with consultants, patient, and family members, and other required patient management activities. This 60 minutes is in excess of all separately billable procedures. Medical Decision Making Differential Diagnosis Differential diagnoses include: sepsis, influenza, pneumonia, and UTI. Medical Records Attestation: I reviewed the patient's medical records. Home Medications Current Medication List: was personally reviewed by [email or web address] Laboratory Data Attestation: I reviewed the patient's lab results. Result diagrams: 10/29/19 23:25 10/29/19 23:25 Lab Results 10/29/19 10/29/19 10/29/19 Range/Units 23:25 23:25 23:25 WBC 16.17 H (4.8-10.8) K/uL RBC 4.58 L (4.7-6.1) M/uL Hgb 14.7 (14.0-18.0) g/dL Hct 43.1 (42-52) % MCV 94.1 (80-100) fL MCH 32.1 (25-34) pg MCHC 34.1 (32-36) g/dL RDW Std Deviation 49.2 H (36.4-46.3) fL RDW Coeff of Liliya 14.3 (11.5-14.5) % Plt Count 343 (130-400) K/uL MPV 10.0 (7.4-10.4) fL Immature Gran % (Auto) 0.2 % Neut % (Auto) 76.5 % Lymph % (Auto) 13.0 % [place] % (Auto) 9.5 % Eos % (Auto) 0.5 % Baso % (Auto) 0.3 % Immature Gran # (Auto) 0.04 H (0.00-0.02) K/uL Neut # (Auto) 12.37 H (1.4-6.5) K/uL Lymph # (Auto) 2.10 (1.2-3.4) K/uL [place] # (Auto) 1.53 H (0.11-0.59) K/uL Eos # (Auto) 0.08 (0-0.5) K/uL Baso # (Auto) 0.05 (0-0.2) K/uL PT 10.5 (9.0-12.0) Seconds INR 1.0 (0.9-1.1) APTT 29.8 (21.0-31.0) Seconds PTT Ratio 1.1 Sodium 133 L (136-145) mmol/L Potassium 4.4 (3.5-5.1) mmol/L Chloride 100 (98-107) mmol/L Carbon Dioxide 29 (21-32) mmol/L Anion Gap 3.0 (3-11) BUN 27 H (7-18) mg/dl Creatinine 1.35 (0.6-1.4) mg/dl Est Cr Clr Drug Dosing 64.2 ml/min Est GFR ( Amer) 67.5 Est GFR (Non-Af Amer) 58.3 BUN/Creatinine Ratio 19.8 (10-20) Glucose 132 H (70-99) mg/dl Lactate (0.4-2.0) mmol/L Calcium 9.8 (8.5-10.1) mg/dl Magnesium 2.1 (1.8-2.4) mg/dl Total Bilirubin 0.6 (0.2-1) mg/dl AST 21 (15-37) U/L ALT 29 (12-78) U/L Alkaline Phosphatase 111 (45-117) U/L Total Protein 8.9 H (6.4-8.2) gm/dl Albumin 4.0 (3.4-5.0) gm/dl Globulin 4.9 H (2.5-4.0) gm/dl Albumin/Globulin Ratio 0.8 L (0.9-2) Influenza Type A Ag (Neg) Influenza Type B Ag (Neg) 10/29/19 10/29/19 Range/Units 23:25 Unknown WBC (4.8-10.8) K/uL RBC (4.7-6.1) M/uL Hgb (14.0-18.0) g/dL Hct (42-52) % MCV (80-100) fL MCH (25-34) pg MCHC (32-36) g/dL RDW Std Deviation (36.4-46.3) fL RDW Coeff of Liliya (11.5-14.5) % Plt Count (130-400) K/uL MPV (7.4-10.4) fL Immature Gran % (Auto) % Neut % (Auto) % Lymph % (Auto) % [place] % (Auto) % Eos % (Auto) % Baso % (Auto) % Immature Gran # (Auto) (0.00-0.02) K/uL Neut # (Auto) (1.4-6.5) K/uL Lymph # (Auto) (1.2-3.4) K/uL [place] # (Auto) (0.11-0.59) K/uL Eos # (Auto) (0-0.5) K/uL Baso # (Auto) (0-0.2) K/uL PT (9.0-12.0) Seconds INR (0.9-1.1) APTT (21.0-31.0) Seconds PTT Ratio Sodium (136-145) mmol/L Potassium (3.5-5.1) mmol/L Chloride (98-107) mmol/L Carbon Dioxide (21-32) mmol/L Anion Gap (3-11) BUN (7-18) mg/dl Creatinine (0.6-1.4) mg/dl Est Cr Clr Drug Dosing ml/min Est GFR ( Amer) Est GFR (Non-Af Amer) BUN/Creatinine Ratio (10-20) Glucose (70-99) mg/dl Lactate 1.6 (0.4-2.0) mmol/L Calcium (8.5-10.1) mg/dl Magnesium (1.8-2.4) mg/dl Total Bilirubin (0.2-1) mg/dl AST (15-37) U/L ALT (12-78) U/L Alkaline Phosphatase (45-117) U/L Total Protein (6.4-8.2) gm/dl Albumin (3.4-5.0) gm/dl Globulin (2.5-4.0) gm/dl Albumin/Globulin Ratio (0.9-2) Influenza Type A Ag Neg for Influ A (Neg) Influenza Type B Ag Neg for Influ B (Neg) Imaging Data Attestation: I personally reviewed and interpreted this imaging study as follows: My Impression: CHEST X-RAY: Bibasilar patchy infiltrates not present on X-ray done 10/20/2019. ECG Data Attestation: I personally reviewed and interpreted this ECG as follows: Indication: + weakness Rate (beats per minute): 135 Rhythm: + sinus tachycardia ECG ST segments: no ST depression and no ST elevation ECG Findings: no PACs and no PVCs Blood Pressure Blood Pressure Findings: Normal blood pressure Blood Pressure Disposition: did not require urgent referral MDM Narrative The patient is a 54 year old male who presents to the emergency department with complaints of a constant fever beginning two days ago. On presentation, the patient was hypotensive, tachycardic and hypoxic. He was placed on supplemental oxygen and 2 large-bore IVs were initiated. The patient was given a total of 2 L of normal saline solution which did increase his blood pressure. A septic protocol was performed. Chest x-ray shows evidence of bila teral patchy infiltrates which is most likely the cause of the sepsis. He was treated with IV antibiotics. I discussed the case with the [facility] hospitalist and they will evaluate for further management. Impression & Plan Septic shock, Bilateral pneumonia, Hypoxia Discharge Plan Visit Data *Final* Discharge Date/Time: 10/30/19 02:04 Chief Complaint: Fever Stated Complaint: FEVER FOR 3 DAYS, 104 @ 2130 ED Provider: Audelia Perez Discharge Problem: Septic shock, Bilateral pneumonia, Hypoxia Patient Disposition: Admitted As Inpatient Discharge Instructions Interventions: ED Discharge Assessment Last Done: 10/30/19 02:04 Discharge Problem: Bilateral pneumonia Qualifiers: Pneumonia type: due to unspecified organism Lung location: unspecified part of lung Qualified Code(s): J18.9 - Pneumonia, unspecified organism The scribe's documentation has been prepared under my direction and personally reviewed by me in its entirety. I confirm that the note above accurately reflec ts all work, treatment, procedures, and medical decision making performed by me.
[2019-10-30 04:34] LABS: Hematocrit (blood only) 37.5 % (42-52); Hemoglobin 12.6 g/dL (14.0-18.0); Mean Corpuscular Hemoglobin 31.5 pg (25-34); Mean Corpuscular Hgb Conc 33.6 g/dL (32-36); Mean Corpuscular Volume 93.8 fL (80-100); Mean Platelet Volume 9.4 fL (7.4-10.4); Platelet Count 317 K/uL (130-400); RDW Coefficient of Variation 14.3 % (11.5-14.5); RDW Standard Deviation 49.3 fL (36.4-46.3); White Blood Count 13.78 K/uL (4.8-10.8)
[2019-10-30 05:04] LABS: Calcium 8.4 mg/dl (8.5-10.1); Creatinine Clr Calc Pharmacy 86.7 ml/min; Est GFR (African American) 107.4; Est GFR (Non-African American) 92.6; Potassium 4.1 mmol/L (3.5-5.1)
[2019-10-30 06:37] LABS: Appearance Urine Cloudy (Clear); Bacteria Urine Automated Negative (Negative); Bilirubin Urine Negative (Negative); Blood Urine Negative (Negative); Color Urine Dark Yellow; Epithelial Cell Urine Auto 0-5 /lpf (0-5); Glucose Urine UA Negative (Negative); Ketones Urine Trace (Negative); Leukocyte Esterase Urine Negative (Negative); Nitrite Urine Negative (Negative); Protein Urine Negative (Negative); RBC Urine Automated 0-4 /hpf (0-4); Specific Gravity Urine 1.022 (1.000-1.030); Urobilinogen Urine Negative (Negative)
--- NOTE | 2019-10-30 07:10 | XRay Report ---
SINGLE VIEW CHEST CLINICAL HISTORY: Sepsis. FINDINGS: An AP, portable, upright chest radiograph is compared to study dated 10/20/2019 and correlate d with chest CT dated 09/21/2019. The examination is degraded by portable technique and patient rotati on. The cardiomediastinal silhouette is unremarkable. Patchy airspace consolidation is seen at the l bryant bases. Chronic interstitial thickening similar to previous. No large pleural effusion or pneumoth orax is seen. The bony thorax is grossly intact. Fusion hardware is noted in the lower cervical spine . IMPRESSION: Patchy airspace consolidation is seen at the lung bases. Correlate clinically for evidenc e of pneumonia/aspiration pneumonitis. Radiographic follow-up to resolution is recommended. ACT 112: Negative or not required by law. Electronically signed by: Rio Laurent M.D. 10/30/2019 7:09 AM
[2019-10-30] MEDS: ALBUT/IPRATROP 3MG/0.5MG NEB 3 ML VIAL NEB SCH ×3 (07:11→19:01)
[2019-10-30] MEDS: methylPREDNISolone 40 MG in SYRINGE 0 ML IV SCH ×3 (07:44→19:37)
[2019-10-30] MEDS: PIPERACILLIN/TAZOBACTAM 3.375 GM in DEXTROSE 5% 100 ML IV SCH ×3 (07:44→22:07)
[2019-10-30] MEDS: ENOXAPARIN INJ 40 MG/0.4 ML SYR SQ SCH (07:44)
[2019-10-30] MEDS: DULOXETINE HCL 60 MG CAP PO SCH (07:45)
[2019-10-30] MEDS: DOCUSATE SODIUM 100 MG CAP PO SCH ×2 (07:45→19:38)
[2019-10-30] MEDS: UMECLIDINIUM BROMIDE 62.5MCG/BLISTER 7 PUFFS/INHALER INH SCH (07:46)
[2019-10-30] MEDS: FLUTICASONE/VILANTEROL 200/25MCG 14 PUFFS/INHALER INH SCH (07:46)
[2019-10-30] MEDS: ASPIRIN 325 MG ECTAB PO SCH (07:46)
[2019-10-30] MEDS: METOPROLOL TARTRATE 50 MG TAB PO SCH ×2 (07:47→19:38)
[2019-10-30] MEDS: GABAPENTIN 300 MG CAP PO SCH ×3 (07:47→19:39)
[2019-10-30] MEDS: PANTOprazole 40 MG TAB PO SCH (07:48)
[2019-10-30] MEDS: CYANOCOBALAMIN (VITAMIN B-12) 100 MCG TABLET PO SCH (07:48)
[2019-10-30] MEDS: MoRPHine SULFATE CR 15 MG TABCR PO SCH ×2 (08:01→21:01)
--- NOTE | 2019-10-30 11:35 | Electrocardiogram Report ---
Test Reason : Blood Pressure : / mmHG Vent. Rate : 135 BPM Atrial Rate : 135 BPM P-R Int : 132 ms QRS Dur : 092 ms QT Int : 290 ms P-R-T Axes : 033 048 056 degrees QTc Int : 435 ms Poor data quality, interpretation may be adversely affected Sinus tachycardia Borderline ECG When compared with ECG of 20-OCT-2019 19:42, HR has increased by 39 bpm Otherwise no significant change Confirmed by Wesley Tejeda ([id number]) on 10/30/2019 11:34:56 AM Referred By: REFERRED SELF Confirmed By:Wesley Tejeda
[2019-10-30] MEDS: OXYCODONE HCL IR 5 MG TAB (IMMEDIATE RELEASE) PO PRN ×2 (13:55→21:04)
[2019-10-30] MEDS: ATORVASTATIN 40 MG TAB PO SCH (19:38)
--- NOTE | 2019-10-30 22:09 | Communication Note ---
Date of Service: October 30, 2019 Patient has improved. Blood pressure has improved as well as his breathing. Patient is not at baseline. Patient will be transferred out of tele monitoring.
[2019-10-31] MEDS: ALBUT/IPRATROP 3MG/0.5MG NEB 3 ML VIAL NEB SCH ×4 (00:38→18:54)
[2019-10-31] MEDS: SODIUM CHLORIDE 0.9% 1000ML 1,000 ML IV SCH ×4 (02:21→20:54)
[2019-10-31] MEDS: methylPREDNISolone 40 MG in SYRINGE 0 ML IV SCH ×2 (02:21→08:29)
[2019-10-31] MEDS: OXYCODONE HCL IR 5 MG TAB (IMMEDIATE RELEASE) PO PRN ×4 (02:40→22:27)
[2019-10-31 06:06] LABS: Hematocrit (blood only) 33.4 % (42-52); Hemoglobin 11.5 g/dL (14.0-18.0); Mean Corpuscular Hemoglobin 32.3 pg (25-34); Mean Corpuscular Hgb Conc 34.4 g/dL (32-36); Mean Corpuscular Volume 93.8 fL (80-100); Mean Platelet Volume 9.6 fL (7.4-10.4); Platelet Count 346 K/uL (130-400); RDW Coefficient of Variation 14.2 % (11.5-14.5); RDW Standard Deviation 48.9 fL (36.4-46.3); Red Blood Count 3.56 M/uL (4.7-6.1); White Blood Count 19.12 K/uL (4.8-10.8)
[2019-10-31] MEDS: PIPERACILLIN/TAZOBACTAM 3.375 GM in DEXTROSE 5% 100 ML IV SCH ×3 (06:34→22:27)
[2019-10-31 06:38] LABS: BUN Creatinine Ratio 18.9 (10-20); Calcium 8.6 mg/dl (8.5-10.1); Creatinine Clr Calc Pharmacy 97.3 ml/min; Est GFR (African American) 114.6; Est GFR (Non-African American) 98.9
[2019-10-31] MEDS: DULOXETINE HCL 60 MG CAP PO SCH (08:28)
[2019-10-31] MEDS: DOCUSATE SODIUM 100 MG CAP PO SCH ×2 (08:28→20:52)
[2019-10-31] MEDS: MoRPHine SULFATE CR 15 MG TABCR PO SCH ×2 (08:28→20:52)
[2019-10-31] MEDS: METOPROLOL TARTRATE 50 MG TAB PO SCH ×2 (08:28→20:52)
[2019-10-31] MEDS: GABAPENTIN 300 MG CAP PO SCH ×3 (08:28→20:53)
[2019-10-31] MEDS: CYANOCOBALAMIN (VITAMIN B-12) 100 MCG TABLET PO SCH (08:28)
[2019-10-31] MEDS: ASPIRIN 325 MG ECTAB PO SCH (08:28)
[2019-10-31] MEDS: PANTOprazole 40 MG TAB PO SCH (08:28)
[2019-10-31] MEDS: ENOXAPARIN INJ 40 MG/0.4 ML SYR SQ SCH (08:29)
[2019-10-31] MEDS: UMECLIDINIUM BROMIDE 62.5MCG/BLISTER 7 PUFFS/INHALER INH SCH (08:29)
[2019-10-31] MEDS: FLUTICASONE/VILANTEROL 200/25MCG 14 PUFFS/INHALER INH SCH (08:29)
--- NOTE | 2019-10-31 19:39 | Hospitalist Progress Note ---
Date of Service October 31, 2019 Assessment & Plan (1) Sepsis: Patient now in medical Patient is no longer hypotensive. This improved after fluid resuscitation. Will continue to monitor (2) Bilateral pneumonia: IV Zosyn and IV Levaquin given in the ED; currently on zosyn. (3) COPD with exacerbation: IV Solumedrol 125mg now followed by 40mg IV Q 6hr. Now titrating to daily. Duonebs scheduled Q 6 hr while awake. Albuterol nebs Q 2 hour prn. Continue Breo Ellipta Continue Spiriva. (4) Acute on chronic respiratory failure with hypoxemia: Supplemental oxygen Currently requiring 4L NC. Down from 5 liters the previous day. (5) Polyneuropathy: Continue gabapentin. (6) Chronic pain syndrome: Continue extended release Morphine 15mg BID Continue oxycodone 15mg q6h prn breakthrough pain Morphine 4mg IV prn severe breakthrough pain. (7) GERD (gastroesophageal reflux disease): Pantoprazole ordered. Patient uses Omeprazole prn. (8) Hypertension: Losartan held due to hypotension Metoprolol ordered for am. Subjective Patient continues to have subjective fever, and chills. Patient also complains of a non productive cough and SOB. Patient denies nausea, and vomiting. Review of Systems Review of Systems: All systems reviewed & are unremarkable except as noted in HPI & below Physical Exam Physical Exam: General- adult male in no distress. Head- atraumatic Eyes- PERRL, EOMI, anicteric ENT- oropharynx clear Neck- supple, no JVD, no adenopathy, no thyromegaly. Lungs- Decreased breath sounds at the bases, + contiues to have expiratory wheezes b/l. Heart- regular rhythm; no murmur, no gallop, no rub appreciated Abdomen- normal bowel sounds, soft, nontender. 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 Skin- warm & dry Results & Data Vital Signs (Past 12 Hours) Vital Signs Temp Pulse Resp BP Pulse Ox 10/31/19 18:57 84 18 93 10/31/19 15:35 36.7 C 89 18 122/68 93 10/31/19 13:23 83 18 95 10/31/19 07:42 36.3 C L 93 H 20 135/61 93 PG Care Time/CCT Total # of Minutes Spent Total Time Spent with Patient: Total time spent is greater than 50% in coord ination of care (as documented) at patient's floor/unit and/or counseling patient: (1) Bilateral pneumonia Lung location: unspecified part of lung Pneumonia type: due to unspecified organism Qualified Code(s): J18.9 - Pneumonia, unspecified organism
[2019-10-31] MEDS: ATORVASTATIN 40 MG TAB PO SCH (20:52)
[2019-11-01] MEDS: ALBUT/IPRATROP 3MG/0.5MG NEB 3 ML VIAL NEB SCH ×4 (00:36→18:56)
[2019-11-01] MEDS: SODIUM CHLORIDE 0.9% 1000ML 1,000 ML IV SCH ×2 (03:38→10:16)
[2019-11-01] MEDS: OXYCODONE HCL IR 5 MG TAB (IMMEDIATE RELEASE) PO PRN ×4 (04:39→22:23)
[2019-11-01] MEDS: PIPERACILLIN/TAZOBACTAM 3.375 GM in DEXTROSE 5% 100 ML IV SCH ×3 (06:09→22:21)
[2019-11-01] MEDS: methylPREDNISolone 40 MG in SYRINGE 0 ML IV SCH (08:26)
[2019-11-01] MEDS: PANTOprazole 40 MG TAB PO SCH (08:26)
[2019-11-01] MEDS: UMECLIDINIUM BROMIDE 62.5MCG/BLISTER 7 PUFFS/INHALER INH SCH (08:26)
[2019-11-01] MEDS: ENOXAPARIN INJ 40 MG/0.4 ML SYR SQ SCH (08:26)
[2019-11-01] MEDS: FLUTICASONE/VILANTEROL 200/25MCG 14 PUFFS/INHALER INH SCH (08:26)
[2019-11-01] MEDS: ASPIRIN 325 MG ECTAB PO SCH (08:26)
[2019-11-01] MEDS: GABAPENTIN 300 MG CAP PO SCH ×3 (08:27→20:29)
[2019-11-01] MEDS: DOCUSATE SODIUM 100 MG CAP PO SCH ×2 (08:27→20:28)
[2019-11-01] MEDS: CYANOCOBALAMIN (VITAMIN B-12) 100 MCG TABLET PO SCH (08:27)
[2019-11-01] MEDS: DULOXETINE HCL 60 MG CAP PO SCH (08:27)
[2019-11-01] MEDS: METOPROLOL TARTRATE 50 MG TAB PO SCH ×2 (08:27→20:29)
[2019-11-01] MEDS: MoRPHine SULFATE CR 15 MG TABCR PO SCH ×2 (08:30→20:27)
[2019-11-01] MEDS: ATORVASTATIN 40 MG TAB PO SCH (20:29)
--- NOTE | 2019-11-01 21:50 | Hospitalist Progress Note ---
Date of Service November 01, 2019 Assessment & Plan (1) Sepsis: Patient now in medical Patient is no longer hypotensive. This improved after fluid resuscitation. Will continue to monitor Improving after antibiotics. (2) Bilateral pneumonia: IV Zosyn and IV Levaquin given in the ED; currently on zosyn. will switch him to ceftriaxone and azithromycin in AM. (3) COPD with exacerbation: IV Solumedrol 125mg now followed by 40mg IV Q 6hr. Now titrating to daily. Duonebs scheduled Q 6 hr while awake. Albuterol nebs Q 2 hour prn. Continue Breo Ellipta Continue Spiriva. (4) Acute on chronic respiratory failure with hypoxemia: Supplemental oxygen Currently requiring 3L NC. Down from 4 liters the previous day. (5) Polyneuropathy: Continue gabapentin. (6) Chronic pain syndrome: Continue extended release Morphine 15mg BID Continue oxycodone 15mg q6h prn breakthrough pain Morphine 4mg IV prn severe breakthrough pain. (7) GERD (gastroesophageal reflux disease): Pantoprazole ordered. Patient uses Omeprazole prn. (8) Hypertension: Losartan held due to hypotension Metoprolol ordered for am. Subjective Patient reports mild improvement in regards to his breathing. Still feels SOB. No fevers however for past 24 hours. Review of Systems Review of Systems: All systems reviewed & are unremarkable except as noted in HPI & below Physical Exam Physical Exam: General- adult male in no distress. Head- atraumatic Eyes- PERRL, EOMI, anicteric ENT- oropharynx clear Neck- supple, no JVD, no adenopathy, no thyromegaly. Lungs- Decreased breath sounds at the bases, + DECREASED expiratory wheezes b/l. Heart- regular rhythm; no murmur, no gallop, no rub appreciated Abdomen- normal bowel sounds, soft, nontender. Extremities- no pretibial edema, no calf tenderness; peripheral pulses intact Neuro- alert, oriented x 3; PERRL, EOMI; cath lab manager II-XII grossly intact, non-focal. Skin- warm & dry Results & Data Vital Signs (Past 12 Hours) Vital Signs Temp Pulse Resp BP Pulse Ox 11/01/19 19:53 36.8 C 92 11/01/19 18:56 84 16 92 11/01/19 14:53 36.7 C 84 20 166/94 H 94 11/01/19 13:28 82 18 92 PG Care Time/CCT Total # of Minutes Spent Total Time Spent with Patient: Total time spent is greater than 50% in coordination of care (as documented) at patient's floor/unit and/or counseling patient: (1) Bilateral pneumonia Lung location: unspecified part of lung Pneumonia type: due to unspecified organism Qualified Code(s): J18.9 - Pneumonia, unspecified organism
[2019-11-02] MEDS: ALBUT/IPRATROP 3MG/0.5MG NEB 3 ML VIAL NEB SCH ×4 (00:51→19:09)
[2019-11-02] MEDS: OXYCODONE HCL IR 5 MG TAB (IMMEDIATE RELEASE) PO PRN ×3 (04:24→16:58)
[2019-11-02 05:51] LABS: Basophils # (auto) 0.01 K/uL (0-0.2); Basophils % (auto) 0.1 %; Eosinophils # (auto) 0.01 K/uL (0-0.5); Eosinophils % (auto) 0.1 %; Hematocrit (blood only) 33.4 % (42-52); Hemoglobin 11.1 g/dL (14.0-18.0); Immature Granulocytes # (auto) 0.41 K/uL (0.00-0.02); Immature Granulocytes % (auto) 2.7 %; Lymphocytes # (auto) 3.52 K/uL (1.2-3.4); Lymphocytes % (auto) 22.9 %; Mean Corpuscular Hemoglobin 31.4 pg (25-34); Mean Corpuscular Hgb Conc 33.2 g/dL (32-36); Mean Corpuscular Volume 94.4 fL (80-100); Mean Platelet Volume 9.6 fL (7.4-10.4); Monocytes # (auto) 1.29 K/uL (0.11-0.59); Monocytes % (auto) 8.4 %; Neutrophils # (auto) 10.11 K/uL (1.4-6.5); Neutrophils % (auto) 65.8 %; Platelet Count 332 K/uL (130-400); RDW Coefficient of Variation 14.2 % (11.5-14.5); RDW Standard Deviation 48.9 fL (36.4-46.3); Red Blood Count 3.54 M/uL (4.7-6.1); White Blood Count 15.35 K/uL (4.8-10.8)
[2019-11-02] MEDS: PIPERACILLIN/TAZOBACTAM 3.375 GM in DEXTROSE 5% 100 ML IV SCH (06:14)
[2019-11-02 06:15] LABS: BUN Creatinine Ratio 17.5 (10-20); Calcium 8.7 mg/dl (8.5-10.1); Creatinine Clr Calc Pharmacy 102.3 ml/min; Est GFR (Non-African American) 100.9; Potassium 3.7 mmol/L (3.5-5.1)
[2019-11-02] MEDS: ENOXAPARIN INJ 40 MG/0.4 ML SYR SQ SCH (08:03)
[2019-11-02] MEDS: AZITHROMYCIN 250 MG TAB PO SCH (08:04)
[2019-11-02] MEDS: FLUTICASONE/VILANTEROL 200/25MCG 14 PUFFS/INHALER INH SCH (08:04)
[2019-11-02] MEDS: METOPROLOL TARTRATE 50 MG TAB PO SCH ×2 (08:05→21:05)
[2019-11-02] MEDS: GABAPENTIN 300 MG CAP PO SCH ×3 (08:05→21:05)
[2019-11-02] MEDS: methylPREDNISolone 40 MG in SYRINGE 0 ML IV SCH ×2 (08:05→21:06)
[2019-11-02] MEDS: DULOXETINE HCL 60 MG CAP PO SCH (08:06)
[2019-11-02] MEDS: CYANOCOBALAMIN (VITAMIN B-12) 100 MCG TABLET PO SCH (08:06)
[2019-11-02] MEDS: PANTOprazole 40 MG TAB PO SCH (08:06)
[2019-11-02] MEDS: DOCUSATE SODIUM 100 MG CAP PO SCH ×2 (08:06→21:05)
[2019-11-02] MEDS: ASPIRIN 325 MG ECTAB PO SCH (08:06)
[2019-11-02] MEDS: UMECLIDINIUM BROMIDE 62.5MCG/BLISTER 7 PUFFS/INHALER INH SCH (08:06)
[2019-11-02] MEDS: MoRPHine SULFATE CR 15 MG TABCR PO SCH ×2 (08:09→21:05)
[2019-11-02] MEDS: cefTRIAXone SODIUM 2,000 MG in DEXTROSE 5% 50 ML IV SCH (08:09)
--- NOTE | 2019-11-02 10:23 | XRay Report ---
XR chest 1V portable CLINICAL HISTORY: SOB/CRANE COMPARISON STUDY: 10/29/2019 FINDINGS: The heart is enlarged. There are improving basilar airspace opacities. There is slight prog ression in left upper lung zone airspace opacities. There is minimal blunting of the lateral costophr enic angles. Postsurgical changes are present within the cervical spine.[ IMPRESSION: 1. Improving basilar airspace opacities 2. Slight progression in the left upper lung zone airspace opacities ACT 112: Negative or not required by law. Electronically signed by: Kaiden Baltazar M.D. 11/02/2019 10:22 AM
--- NOTE | 2019-11-02 10:53 | Hospitalist Progress Note ---
Date of Service November 02, 2019 Assessment & Plan (1) Sepsis: - RESOLVED -- Initially presented with hypotension (responded to fluid resuscitation), tachycardia, febrile, and leukocytosis - source appears to be lung Present on Admission?: Yes (2) Bilateral pneumonia: - Initially started on Zosyn and Levaquin - was converted to Rocephin and Zithromax - Leukocytosis improving; expect some elevation given steroids - Will repeat CXR to compare given slow improvement Present on Admission?: Yes (3) COPD with exacerbation: - Likely the main issue at current time; Has diffuse inspiratory/expiratory wheeze on exam - Albuterol Q6H and PRN; Fluticasone/Vilanterol daily; Umeclidinium bromide daily - Add Mucinex BID - Will increase Methylprednisolone to 40 mg IV BID for now and monitor for ability to taper - Supplemental O2 as needed - wean to maintain O2 > 88 % -- Consideration for two-step prior to discharge Present on Admission?: Yes (4) Acute on chronic respiratory failure with hypoxemia: - Given ongoing smoking likely could have some hypoxia at baseline - states he has never been tested for oxygen need - Continue to wean as discussed above Present on Admission?: Yes (5) Polyneuropathy: - STABLE - Continue Gabapentin 900 mg TID (6) Chronic pain syndrome: - Continue Morphine 15 mg BID and Oxycodone 15 mg Q6H PRN; Morphine IV PRN Present on Admission?: Yes (7) GERD (gastroesophageal reflux disease): - Continue Protonix 40 mg daily as Omeprazole interchange Present on Admission?: Yes (8) Hypertension: - Continue Metoprolol 50 mg BID; Resume Losartan 100 mg daily Disposition: Continue to wean supplemental O2; Await clinical improvement - home on discharge; will evaluate whether home O2 is needed Subjective Reports he is feeling slightly better today. Still with increased SOB with simple ambulation to the bathroom. Still requiring supplemental O2. Diffuse inspiratory/expiratory wheezing noted. He feels he is beginning to cough some and feels like things are moving better in his chest but cough is nonproductive. Feels that the breathing treatments are helping. Tolerating diet. Denies any new complaints. Review of Systems Constitutional: no fever, no chills, no weakness and no anorexia Ear, Nose, Mouth, Throat: no nasal congestion, no sore throat and no dysphagia Respiratory: + cough, + dyspnea on exertion and + wheezing; no sputum production Cardiovascular: no chest pain, no palpitations, no lightheadedness and no edema Gastrointestinal: no abdominal pain, no nausea, no vomiting, no constipation and no diarrhea/loose stools Genitourinary: no dysuria Musculoskeletal: no body aches Integumentary: no rash Physical Exam Constitutional: WD/WN, vitals as above Eyes: + anicteric sclerae ENMT: Ears: no hearing impairment Neck: trachea midline Respiratory: normal respiratory effort Auscultation: + diminished lung sounds (bases b/l), + crackles and + wheezes Cardiovascular: RRR, no murmur, no edema Gastrointestinal (Abdomen): Inspection/Auscultation: normal bowel sounds Percussion/Palpation: abdomen soft; abdomen nontender Musculoskeletal: Head/Neck/Chest: normocephalic and head atraumatic Skin: no rashes, warm and dry Neurologic: moves all extremities Psychiatric: A+Ox3, euthymic affect Results & Data Vital Signs (Past 12 Hours) Vital Signs Temp Pulse Resp BP BP Pulse Ox 11/02/19 07:43 36.6 C 79 20 166/77 H 96 11/02/19 06:48 74 20 94 11/02/19 00:51 82 16 92 11/01/19 23:00 36.8 C 71 20 160/80 H 95 PG Care Time/CCT Total # of Minutes Spent Total Time Spent with Patient: Total time spent is greater than 50% in coordination of care (as documented) at patient's floor/unit and/or counseling patient: (1) Bilateral pneumonia Lung location: unspecified part of lung Pneumonia type: due to unspecified organism Qualified Code(s): J18.9 - Pneumonia, unspecified organism
[2019-11-02] MEDS: guaiFENesin 600 MG TABCR PO SCH ×2 (10:57→21:05)
[2019-11-02] MEDS: NICOTINE 21 MG/24 HR TDSY TD SCH (12:34)
[2019-11-02] MEDS: ATORVASTATIN 40 MG TAB PO SCH (21:05)
[2019-11-03] MEDS: ALBUT/IPRATROP 3MG/0.5MG NEB 3 ML VIAL NEB SCH ×3 (00:39→13:06)
[2019-11-03] MEDS: OXYCODONE HCL IR 5 MG TAB (IMMEDIATE RELEASE) PO PRN ×2 (03:15→10:07)
[2019-11-03] MEDS: FLUTICASONE/VILANTEROL 200/25MCG 14 PUFFS/INHALER INH SCH (08:11)
[2019-11-03] MEDS: NICOTINE 21 MG/24 HR TDSY TD SCH (08:11)
[2019-11-03] MEDS: UMECLIDINIUM BROMIDE 62.5MCG/BLISTER 7 PUFFS/INHALER INH SCH (08:11)
[2019-11-03] MEDS: ENOXAPARIN INJ 40 MG/0.4 ML SYR SQ SCH (08:12)
[2019-11-03] MEDS: AZITHROMYCIN 250 MG TAB PO SCH (08:13)
[2019-11-03] MEDS: guaiFENesin 600 MG TABCR PO SCH (08:13)
[2019-11-03] MEDS: methylPREDNISolone 40 MG in SYRINGE 0 ML IV SCH (08:13)
[2019-11-03] MEDS: CYANOCOBALAMIN (VITAMIN B-12) 100 MCG TABLET PO SCH (08:13)
[2019-11-03] MEDS: DULOXETINE HCL 60 MG CAP PO SCH (08:14)
[2019-11-03] MEDS: METOPROLOL TARTRATE 50 MG TAB PO SCH (08:14)
[2019-11-03] MEDS: PANTOprazole 40 MG TAB PO SCH (08:14)
[2019-11-03] MEDS: GABAPENTIN 300 MG CAP PO SCH (08:14)
[2019-11-03] MEDS: DOCUSATE SODIUM 100 MG CAP PO SCH (08:14)
[2019-11-03] MEDS: ASPIRIN 325 MG ECTAB PO SCH (08:14)
[2019-11-03] MEDS: cefTRIAXone SODIUM 2,000 MG in DEXTROSE 5% 50 ML IV SCH (08:18)
[2019-11-03] MEDS: MoRPHine SULFATE CR 15 MG TABCR PO SCH (08:18)
[2019-11-03] MEDS ORDERED: LOSARTAN POTASSIUM 50 MG TAB PO SCH (09:00)
--- NOTE | 2019-11-03 18:54 | Discharge Summary ---
Date of Service November 03, 2019 Admission HPI Per Admitting Provider 54 y/o male presented to the ED with a 1 week history of increasing SOB, productive cough, and fever. He reports no chest pain, N/V/D, headache, sore throat, or lightheadedness. He was hypotensive on presentation with BP 93/63. Principal Diagnosis Community Acquired Pneumonia; COPD Exacerbation Discharge Exam Constitutional WD/WN, vitals as above Eyes + anicteric sclerae ENMT Ears: no hearing impairment Neck trachea midline Respiratory normal respiratory effort Auscultation: + diminished lung sounds (bases b/l) and + wheezes (minimal; scattered expiratory) Cardiovascular RRR, no murmur, no edema Gastrointestinal (Abdomen) Inspection/Auscultation: normal bowel sounds Percussion/Palpation: abdomen soft; abdomen nontender Musculoskeletal Head/Neck/Chest: normocephalic and head atraumatic Skin no rashes, warm and dry Neurologic moves all extremities Psychiatric A+Ox3, euthymic affect Discharge Data Allergies Allergy/AdvReac Type Severity Reaction Status Date / Time bee venom protein (honey bee) Allergy Severe PASSES OUT Verified 10/29/19 23:20 naproxen Allergy Intermediate SEVERE RASH Verified 10/29/19 23:20 tramadol AdvReac Intermediate GI SYMPTOMS Verified 10/29/19 23:20 Consultations 10/30/19 00:51 ED Decision to Admit Stat Hospital Course (1) Sepsis: - RESOLVED -- Initially presented with hypotension (responded to fluid resuscitation), tachycardia, febrile, and leukocytosis - source appears to be lung (2) Bilateral pneumonia: - Initially started on Zosyn and Levaquin - was converted to Rocephin and Zithromax - will complete course with Cefdinir BID and Zithromax - Leukocytosis improving; expect some elevation given steroids (3) COPD with exacerbation: - Likely the main issue at current time; improving - able to ambulate from bathroom easier with less SOB - Continue home inhalers and nebs as prescribed; taper Prednisone of 40 mg x 2 days, 30 mg x 2 days, 20 mg x 2 days, then 10 mg x 2 days - Will increase Methylprednisolone to 40 mg IV BID for now and monitor for ability to taper - 2 step supports 2 L NC with ambulation - possibly O2 will just need to be a temporary thing and can be reassessed - discussed smoking cessation and especially no smoking with O2 use (4) Acute on chronic respiratory failure with hypoxemia: - As discussed above (5) Polyneuropathy: - STABLE - Continue Gabapentin 900 mg TID (6) Chronic pain syndrome: - Continue Morphine 15 mg BID and Oxycodone 15 mg Q6H PRN (7) GERD (gastroesophageal reflux disease): - Continue Omeprazole (8) Hypertension: - Continue Metoprolol 50 mg BID; Losartan 100 mg daily Disposition: Discussed case with COPD program, [facility]; patient reports PFTs a while back and may benefit from retesting and following with COPD clinic/program Total Time Total Time Spent Total Time Spent (In Minutes): Greater than 30 minutes Discharge Plan Discharge Items Patient Disposition: Home - Self-Care Reason For Visit: SEPSIS, PNEUMONIA Discharge Diagnosis: Pneumonia and Bronchitis Activity: Resume your previous activity Non-emergency contact: Primary Care Provider Call non-emergency contact if: you have any medication questions, your symptoms worsen and you have a fever Follow-up/Referrals: Tavo Zhao MD [Primary Care Provider] - 11/09/19 3:00 pm (Please, follow up at Dr. Zhao's office with his associate, Carmel Wharton PA-C, on SaturdayNovember 09 at 3:00 pm. *If you need to change this appointment, call their office at [phone].) Diet: Regular and Heart Healthy Addtl Attending Provider Instructions: Pneumonia and Bronchitis: - You were admitted for the above conditions. - You will need to continue antibiotics as follows -- Zithromax 500 mg x one more day. Take this tomorrow on 11/04. This is a longer acting antibiotic so you only need one more dose. -- Cefdinir 300 mg twice a day. Start this tomorrow as well as you had a once a day dose of IV antibiotics in the hospital. You only need 2 more days of antibiotics - Continue your inhalers and nebulizers as already ordered at home - Will continue a course of steroids to help open up your airways and calm the bronchitis down. -- Take Prednisone 40 mg x 2 days then 30 mg x 2 days then 20 mg x 2 days then 10 mg x 2 days. Start these tomorrow as well as you had your dose here in the hospital - You qualified for supplemental oxygen of 2 L when walking around. Hopefully as this episode calms down this may not be needed in the future. Your family doctor can perform another oxygen test to see if this is needed going forward. - It is recommended to try and quit smoking as it will not help the lungs and illness. Do not smoke when wearing oxygen as this can catch fire/explode Pending Studies at Discharge: No Stand-Alone Forms: [facility], Smoking Cessation Medications and DC Order Prescriptions: New azithromycin [Zithromax] 250 mg Tablet 500 mg PO QAM Qty: 1 RF: 0 cefdinir 300 mg capsule 300 mg PO BID Qty: 4 RF: 0 prednisone 10 mg tablet 10 mg PO DIRECTED Qty: 20 RF: 0 Continued metoprolol tartrate 50 mg tablet 50 mg PO BID Qty: 180 RF: 3 duloxetine 60 mg capsule,delayed release(DR/EC) 60 mg PO DAILY Qty: 30 RF: 5 Breo Ellipta 200-25 mcg/dose blister with device 1 puffs Inhalation .COMPLEX Qty: 60 RF: 5 gabapentin 300 mg capsule 900 mg PO TID Qty: 270 RF: 5 losartan 100 mg tablet 100 mg PO DAILY Qty: 30 RF: 5 morphine 15 mg tablet extended release 15 mg PO BID Qty: 60 RF: 0 oxycodone 15 mg tablet 15 mg PO Q6H Qty: 90 RF: 0 aspirin 325 mg tablet 325 mg PO DAILY RF: 0 docusate sodium 100 mg capsule 100 mg PO BID RF: 0 atorvastatin 80 mg tablet 80 mg PO HS RF: 0 cyanocobalamin (vitamin B-12) [Vitamin B-12] 100 mcg tablet 100 mcg PO DAILY RF: 0 epinephrine [EpiPen] 0.3 mg/0.3 mL Auto-Injector 0.3 mg IM UD PRN (Reason: Allergic Reaction) RF: 0 albuterol sulfate 90 mcg/actuation Hfa Aerosol Inhaler 2 puff INHALATION Q4H PRN (Reason: Wheezing) RF: 0 Spiriva Respimat 2.5 mcg/actuation mist 2 puff Inhalation DAILY RF: 0 nitroglycerin 0.4 mg tablet, sublingual 0.4 mg sublingual ONCE PRN (Reason: chest pain) Qty: 20 RF: 0 ipratropium-albuterol 0.5 mg-3 mg(2.5 mg base)/3 mL solution for nebulization 3 ml Inhalation QID PRN (Reason: Shortness Of Breath) RF: 0 omeprazole 20 mg capsule,delayed release(DR/EC) 20 mg PO BID PRN (Reason: Indigestion) RF: 0 Discharge Orders: Discharge Order (Routine); Ordered 11/03/19 Ordered By: Franca Khalil Admission Data Admit Date/Time: 10/30/19 01:25 Attending Provider: Eliseo Salazar Admit Provider: Shon Michaels Primary Care Provider: Tavo Zhao Other Providers: Shon Michaels Other Interventions: Discharge Summary Assessment (RN) Last Done: 11/03/19 13:12 DC Date/Time DO NOT enter until pt leaves facility: 11/03/19 14:07 Supervising Physician Co-Signing Physician Notes Attending note: patient seen and examined with Franca Khalil PA-C. I agree with her discharge summary. I personally reviewed the labs and imaging findings. patient feeling much better, breathing room air at rest, arranged for home oxygen with ambulation no fever, WBC normal eating well, cough is becoming a little more productive and lungs are "less tight" - Sepsis: due to pneumonia, resolved completely - Pneumonia: treated with Rocephin and Zithromax, responding well complete course of Cefdinir and Zithromax after discharge - COPD exacerbation: continue beta agonists, complete course of Prednisone follow up closely with PCP
== END 2019-11-03 14:07 | disposition home or self-care (01) | DRG 871 ==
LOC: ED 22:51 → 1E 10-30 01:25 → SUATTDRO 10-30 01:25 → 1E 10-30 02:04 → 4W 10-30 15:53

== ENCOUNTER 2021-02-12 14:38 | Inpatient (IN) ==
[2021-02-12] MEDS ORDERED: ALBUT/IPRATROP 3MG/0.5MG NEB 3 ML VIAL NEB ONE (15:02)
[2021-02-12] MEDS ORDERED: guaiFENesin 600 MG TABCR PO STA (15:02)
[2021-02-12] MEDS ORDERED: dexAMETHasone**PF** 10 MG/ML VIAL IV ONE (15:02)
[2021-02-12] MEDS ORDERED: SODIUM CHLORIDE 0.9% 500 ML IV ONE ×2 (15:05→17:26)
[2021-02-12] MEDS ORDERED: ACETAMINOPHEN 1,000 MG/100 ML VIAL IV STA (15:05)
--- NOTE | 2021-02-12 15:13 | Emergency Department Note ---
Impression & Plan COPD exacerbation, Pancytopenia, Transaminitis ED Provider Note NAME: LUCIAN HAMPTON AGE: 55 SEX: M ARRIVES VIA: Walk-In INFORMANT: Patient, ED PROVIDER(S): Segundo Santiago MD CHIEF COMPLAINT: Fevers, cough, shortness of breath, PLAN: Disposition: Admit MEDICAL DECISION MAKING: The patient is a pleasant 55-year-old gentleman with a past medical history of COPD on 2 L home oxygen as needed, daily smoking/tobacco abuse, diastolic CHF, SAUL, hypertension, hyperlipidemia who presents to the emergency department with worsening shortness of breath, cough congestion fevers ongoing since . He denies any known COVID-19 exposures. He denies nausea or vomiting but has had decreased appetite and feels he is dehydrated. Denies any diarrhea. He reports having yellow productive sputum. He denies any urinary symptoms. He re ports frequent tick exposures but no known prolonged attached or engorged bites. On arrival the patient is fatigued, uncomfortable but no acute distress, afebrile with O2 saturation 92-94% on room air with mild increased work of breathing with diffuse wheezes with prolonged expiratory phase. Diaphoretic. He appears clinically dry. EKG without overt acute ischemia. CXR negative for acute cardiopulmonary process. WBC 3.7 acute decreased for patient. H/H 12.8/37.5 also decreased as are platelets down to [id number]. Chemistry without acidosis. Phosphorus 1.8 and otherwise electrolytes without significant abnormality. LFTs are newly elevated with AST, ALT, and AP 90, 100, and 173 respectively. Total bilirbuin wnl. Troponin negative/undetectable. BNP wnl. Lipase is note elevated. Anaplasmosis smear negative however DNA test pending. Given pancytopenia with new transaminitis with frequent tick exposures, will treat empirically for anaplasmosis at this time. Lyme screen equivocal for IgM AB however, doxycycline will also treat. Covid-19 PCR negative. Influenza and RSV PCR also negative. Given benign abdominal exam CT abd deferred at this time. Upon re-evaluation the patient did feel improved after initial treatment with IVF, Steroids, duoneb. However still SOB from baseline and ill appearing. Presentation is suspicious for COPD exacerbation provoked in the setting of acute anaplasmosis infection. Patient agrees with plan for admission. Dr. Schulte, [facility] [place] hospitalist to evaluate the patient for admission. Triage Nursing notes reviewed and agree them. Prior medical records reviewed Vital Signs: reviewed and remarkable for no significant abnormalities Differential diagnosis: Viral syndrome, otitis, pharyngitis, pneumonia, influenza, meningitis, urinary tract infection, sepsis, bacteremia, as well as other pathologies. ER treatment provided: See below. Diagnostics interpreted by me: ECG: NSR, 91 bpm, no ectopy, no overt ST elevation or depression. Cardiac Monitoring: An order for continuous cardiac monitoring was placed and demonstrated NSR, 91 bpm, no ectopy. Laboratory studies: See below Imaging studies: See below Consultation(s): Dr. Schulte, [facility] [place] hospitalist to evaluate the patient for admission. HPI: The patient is a pleasant 55-year-old gentleman with a past medical history of COPD on 2 L home oxygen as needed, daily smoking/tobacco abuse, diastolic CHF, SAUL, hypertension, hyperlipidemia who presents to the emergency department with worsening shortness of breath, cough congestion fevers ongoing since . He denies any known COVID-19 exposures. He denies nausea or vomiting but has had decreased appetite and feels he is dehydrated. Denies any diarrhea. He reports having yellow productive sputum. He denies any urinary symptoms. He reports frequent tick exposures but no known prolonged attached or engorged bites. ROS: See above HPI for pertinent positives & negatives. A total of 10 systems reviewed and were otherwise negative. PAST MEDICAL HISTORY:See Below PAST SURGICAL HISTORY:See Below FAMILY HISTORY:See Below SOCIAL HISTORY:See Below HOME MEDICATIONS:See Below ALLERGIES:See Below VITALS:See Below PHYSICAL EXAMINATION: GENERAL: Awake, alert, ill-appearing, in no distress HENT: Normocephalic, atraumatic. Oropharynx with dry mucous membranes and otherwise unremarkable. EYES: Normal conjunctiva. Sclera non-icteric. NECK: Supple. No nuchal rigidity. FROM. No JVD. RESPIRATORY: Diffuse wheezes with prolonged expiratory phase. Mild increased work of breathing in no acute distress. CARDIAC: Regular rate, normal rhythm. Extremities warm and well perfused. Pulses equal. ABDOMEN: Soft, non-distended. No tenderness to palpation. No rebound or guarding. No masses. RECTAL: Deferred. MUSCULOSKELETAL: Chest examination reveals no tenderness. The back is symmetrical on inspection without obvious abnormality. There is no CVA tenderness to palpation. No joint edema. LOWER EXTREMITIES: Calves are equal size bilaterally and non-tender. No edema. No discoloration. NEURO: Normal sensorium. No sensory or motor deficits noted. SKIN: Diaphoretic. No rash or jaundice noted. Segundo Santiago MD Past Med/Surg History Medical History Abnormal CT scan, chest Anaphylactic reaction Anemia Anxiety disorder Arthritis of right shoulder region Back pain Bilateral carpal tunnel syndrome Chest pain Chronic bronchitis Chronic hypoxemic respiratory failure Chronic pain Chronic pain syndrome Chronic, continuous use of opioids COPD (chronic obstructive pulmonary disease) COPD, mild Diastolic CHF, acute on chronic Dyshidrotic eczema Excessive daytime sleepiness Gait disturbance GERD (gastroesophageal reflux disease) H/O supraventricular tachycardia Hypercholesterolemia Hyperlipemia Hypertension Insomnia Internal hemorrhoids Lumbar radiculopathy Male erectile disorder of organic origin Mitral valve disorder MVP (mitral valve prolapse) Neural foraminal stenosis of cervical spine Nicotine dependence NSTEMI (non-ST elevated myocardial infarction) SAUL (obstructive sleep apnea) Polyneuropathy Pre-diabetes Seborrheic keratosis Secondary pulmonary hypertension Tobacco abuse Tobacco abuse Ulnar neuropathy at elbow Vitamin B12 deficiency Surgical History H/O cardiac catheterization History of cholecystectomy Hx of appendectomy Hx of arthroscopic knee surgery S/P appy S/P cervical spinal fusion S/P tonsillectomy and adenoidectomy Family History Father Hypertension Brother Hypertension Other Allergies Cancer Diabetes Heart disease No significant family history Denies family history of Tuberculosis Emphysema, unspecified Lung disease Asthma Social History Smoking Status: Current every day smoker packs per day: 1; Years Smoked: 25; Cigarettes Per Day: 20; Second Hand Exposure: No; Do You Dip or Chew Tobacco: No; Tobacco Cessation Education Requested by Patient: No Hx Alcohol Use: No Hx Substance Use: No Preferred Language: Malian Communication Ability: Effective Visual Impairment: No Limitations 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 Beliefs That Will Affect Care: None marital status: Current Living Situation: Spouse Other Information That Helps Us Care for You: No Feels Safe at Home: Yes Safety Concerns: Feels Safe At This Time Assistive Devices: None Assistive Devices Comment: oxygen PRN Allergies Allergies Allergy/AdvReac Type Severity Reaction Status Date / Time bee venom protein (honey bee) Allergy Severe PASSES OUT Verified 02/12/21 18:20 naproxen Allergy Intermediate SEVERE RASH Verified 02/12/21 18:20 tramadol AdvReac Intermediate GI SYMPTOMS Verified 02/12/21 18:20 Home Meds Home Medications Medication Instructions Recorded Confirmed albuterol sulfate 2 puff INHALATION Q4H PRN 01/02/19 02/12/21 epinephrine [EpiPen] 0.3 mg IM UD PRN 01/02/19 02/12/21 aspirin 325 mg tablet 325 mg PO QAM tab 07/02/19 02/12/21 docusate sodium 100 mg capsule 100 mg PO BID PRN 07/02/19 02/12/21 Incruse Ellipta 1 inh INHALATION QAM 11/01/20 02/12/21 duloxetine 60 mg PO QAM 11/01/20 02/12/21 Previous Rx's Medication Instructions Recorded atorvastatin 80 mg tablet 80 mg PO HS #90 tab 01/06/20 nitroglycerin 0.4 mg sublingual 0.4 mg SUBLINGUAL ONCE PRN #20 tab 01/11/20 tablet ipratropium 0.5 mg-albuterol 3 mg 3 ml INHALATION QID PRN #180 ml 05/24/20 (2.5 mg base)/3 mL nebulization soln furosemide 40 mg tablet 40 mg PO DAILY PRN #30 tab 01/02/21 cyanocobalamin (vitamin B-12) 100 100 mcg PO QAM #90 tab 01/05/21 mcg tablet metoprolol tartrate 50 mg tablet 50 mg PO BID #180 tab 01/23/21 oxycodone 15 mg tablet 15 mg PO Q6H #90 tab 01/23/21 gabapentin 300 mg capsule 900 mg PO TID #270 cap 01/26/21 valsartan 160 mg tablet 160 mg PO QAM #90 tab 01/26/21 fluticasone furoate 100 1 inh INHALATION BID #60 ea 01/31/21 mcg-vilanterol 25 mcg/dose inhalation powder morphine 15 mg tablet,extended 15 mg PO Q12H #60 tab 02/02/21 release Results & Data (ED) Vital Signs Vital Signs - 24 hr 02/12/21 14:45 02/12/21 15:02 02/12/21 15:20 Temperature 36.8 C Temperature Source Oral Pulse Rate 105 H 88 Pulse Rate [Apical] Pulse Rate from SpO2 Sensor 88 Pulse Rhythm Respiratory Rate 16 17 Respiratory Effort / Characteristics Blood Pressure 119/82 110/86 Blood Pressure Mean 94 94 Pulse Oximetry 94 94 Oxygen Delivery Method Room Air Room Air Oxygen Flow Rate Sepsis Recent Fever Within 48 Hours No Sepsis New/Unexplained Change in Mental Status N/A Sepsis Action Taken by Nursing No Action Required 02/12/21 15:21 02/12/21 15:30 02/12/21 15:31 Temperature Temperature Source Pulse Rate 88 83 87 Pulse Rate [Apical] Pulse Rate from SpO2 Sensor 90 84 88 Pulse Rhythm Respiratory Rate 25 H 22 27 H Respiratory Effort / Characteristics Blood Pressure 127/81 Blood Pressure Mean 96 Pulse Oximetry 94 95 95 Oxygen Delivery Method Oxygen Flow Rate Sepsis Recent Fever Within 48 Hours Sepsis New/Unexplained Change in Mental Status Sepsis Action Taken by Nursing 02/12/21 15:35 02/12/21 15:40 02/12/21 15:45 Temperature Temperature Source Pulse Rate 82 90 Pulse Rate [Apical] Pulse Rate from SpO2 Sensor 82 84 Pulse Rhythm Regular Respiratory Rate 21 40 H Respiratory Effort / Characteristics Blood Pressure 127/79 Blood Pressure Mean 95 Pulse Oximetry 96 95 Oxygen Delivery Method Nasal Cannula Oxygen Flow Rate 2 Sepsis Recent Fever Within 48 Hours Sepsis New/Unexplained Change in Mental Status Sepsis Action Taken by Nursing 02/12/21 15:50 02/12/21 15:56 02/12/21 16:00 Temperature Temperature Source Pulse Rate 85 81 Pulse Rate [Apical] 83 Pulse Rate from SpO2 Sensor 85 81 Pulse Rhythm Respiratory Rate 21 18 22 Respiratory Effort / Characteristics Spontaneous Blood Pressure 113/94 Blood Pressure Mean 100 Pulse Oximetry 99 98 98 Oxygen Delivery Method Nasal Cannula Oxygen Flow Rate 2 Sepsis Recent Fever Within 48 Hours Sepsis New/Unexplained Change in Mental Status Sepsis Action Taken by Nursing 02/12/21 16:01 02/12/21 16:10 02/12/21 16:16 Temperature Temperature Source Pulse Rate 82 82 83 Pulse Rate [Apical] Pulse Rate from SpO2 Sensor 81 83 83 Pulse Rhythm Respiratory Rate 22 28 H 24 Respiratory Effort / Characteristics Blood Pressure 122/86 Blood Pressure Mean 98 Pulse Oximetry 98 91 99 Oxygen Delivery Method Oxygen Flow Rate Sepsis Recent Fever Within 48 Hours Sepsis New/Unexplained Change in Mental Status Sepsis Action Taken by Nursing 02/12/21 16:17 02/12/21 16:20 02/12/21 16:30 Temperature Temperature Source Pulse Rate 83 84 86 Pulse Rate [Apical] Pulse Rate from SpO2 Sensor 84 85 86 Pulse Rhythm Respiratory Rate 23 27 H 22 Respiratory Effort / Characteristics Blood Pressure 119/79 Blood Pressure Mean 92 Pulse Oximetry 99 97 97 Oxygen Delivery Method Oxygen Flow Rate Sepsis Recent Fever Within 48 Hours Sepsis New/Unexplained Change in Mental Status Sepsis Action Taken by Nursing 02/12/21 16:31 02/12/21 16:40 02/12/21 16:45 Temperature Temperature Source Pulse Rate 88 89 90 Pulse Rate [Apical] Pulse Rate from SpO2 Sensor 88 90 90 Pulse Rhythm Respiratory Rate 20 21 20 Respiratory Effort / Characteristics Blood Pressure 121/78 Blood Pressure Mean 92 Pulse Oximetry 99 97 97 Oxygen Delivery Method Oxygen Flow Rate Sepsis Recent Fever Within 48 Hours Sepsis New/Unexplained Change in Mental Status Sepsis Action Taken by Nursing 02/12/21 16:50 02/12/21 17:00 02/12/21 17:01 Temperature Temperature Source Pulse Rate 87 88 89 Pulse Rate [Apical] Pulse Rate from SpO2 Sensor 87 88 89 Pulse Rhythm Respiratory Rate 24 22 24 Respiratory Effort / Characteristics Blood Pressure 115/89 Blood Pressure Mean 97 Pulse Oximetry 96 97 97 Oxygen Delivery Method Oxygen Flow Rate Sepsis Recent Fever Within 48 Hours Sepsis New/Unexplained Change in Mental Status Sepsis Action Taken by Nursing 02/12/21 17:10 02/12/21 17:15 02/12/21 17:20 Temperature Temperature Source Pulse Rate 91 H 93 H 90 Pulse Rate [Apical] Pulse Rate from SpO2 Sensor 91 H 93 H 90 Pulse Rhythm Respiratory Rate 22 21 27 H Respiratory Effort / Characteristics Blood Pressure 117/74 Blood Pressure Mean 88 Pulse Oximetry 96 96 97 Oxygen Delivery Method Oxygen Flow Rate Sepsis Recent Fever Within 48 Hours Sepsis New/Unexplained Change in Mental Status Sepsis Action Taken by Nursing 02/12/21 17:30 02/12/21 17:31 02/12/21 17:40 Temperature Temperature Source Pulse Rate 90 91 H 90 Pulse Rate [Apical] Pulse Rate from SpO2 Sensor 91 H 91 H 90 Pulse Rhythm Respiratory Rate 21 23 23 Respiratory Effort / Characteristics Blood Pressure 136/80 Blood Pressure Mean 98 Pulse Oximetry 98 95 94 Oxygen Delivery Method Oxygen Flow Rate Sepsis Recent Fever Within 48 Hours Sepsis New/Unexplained Change in Mental Status Sepsis Action Taken by Nursing 02/12/21 17:45 02/12/21 17:50 Temperature Temperature Source Pulse Rate 94 H 93 H Pulse Rate [Apical] Pulse Rate from SpO2 Sensor 94 H 93 H Pulse Rhythm Respiratory Rate 20 23 Respiratory Effort / Characteristics Blood Pressure 125/81 Blood Pressure Mean 95 Pulse Oximetry 94 94 Oxygen Delivery Method Oxygen Flow Rate Sepsis Recent Fever Within 48 Hours Sepsis New/Unexplained Change in Mental Status Sepsis Action Taken by Nursing Laboratory Data Attestation: I reviewed the patient's lab results. Result diagrams: 02/12/21 16:28 02/12/21 15:26 Lab Results 02/12/21 02/12/21 02/12/21 Range/Units 15:26 15:26 15:26 WBC Cancelled RBC Cancelled Hgb Cancelled Hct Cancelled MCV Cancelled MCH Cancelled MCHC Cancelled RDW Std Deviation Cancelled RDW Coeff of Liliya Cancelled Plt Count Cancelled MPV Cancelled Immature Gran % (Auto) Cancelled Neut % (Auto) Cancelled Lymph % (Auto) Cancelled Alpine % (Auto) Cancelled Eos % (Auto) Cancelled Baso % (Auto) Cancelled Neut # (Auto) Cancelled Lymph # (Auto) Cancelled Alpine # (Auto) Cancelled Eos # (Auto) Cancelled Baso # (Auto) Cancelled Immature Gran # (Auto) Cancelled Absolute Nucleated RBC Cancelled Nucleated RBC % (auto) Cancelled Neutrophils % (Manual) Cancelled Band Neutrophils % Cancelled Lymphocytes % (Manual) Cancelled Prolymphocyte % Cancelled Reactive Lymphs % (Man) Cancelled Monocytes % (Manual) Cancelled Eosinophils % (Manual) Cancelled Basophils % (Manual) Cancelled Metamyelocytes % (Man) Cancelled Myelocytes % (Man) Cancelled Promyelocytes % (Man) Cancelled Blast Cells % (Manual) Cancelled Plasma Cell % (Manual) Cancelled Other Cells % Cancelled Nucleated RBC % Cancelled Neutrophils # (Manual) Cancelled Band Neutrophils # Cancelled Total Absolute Neuts Cancelled Lymphocytes # (Manual) Cancelled Prolymphocyte # Cancelled Reactive Lymphs # Cancelled Total Abs Lymphocytes Cancelled Monocytes # (Manual) Cancelled Eosinophils # (Manual) Cancelled Basophils # (Manual) Cancelled Metamyelocytes # (Man) Cancelled Myelocytes # (Manual) Cancelled Promyelocytes # (Man) Cancelled Blast Cells # (Man) Cancelled Plasma Cell # (Manual) Cancelled Other Cells # Cancelled Nucleated RBCs # (Man) Cancelled Hypersegmented Neuts Cancelled Hyposegmented Neuts Cancelled Hypogranular Neuts Cancelled Large Granular Lymphs Cancelled # Lrg Granular Lymphs Cancelled Hairy Cells Cancelled Smudge Cells Cancelled Toxic Granulation Cancelled Toxic Vacuolation Cancelled Dohle Bodies Cancelled Francisco Rods Cancelled Platelet Estimate Cancelled Hypogranular Platelets Cancelled Clumped Platelets Cancelled Giant Platelets Cancelled Platelet Satelliting Cancelled RBC Morphology Cancelled Polychromasia Cancelled Hypochromasia Cancelled Poikilocytosis Cancelled Basophilic Stippling Cancelled Anisocytosis Cancelled Microcytosis Cancelled Macrocytosis Cancelled Spherocytes Cancelled Pappenheimer Bodies Cancelled Sickle Cells Cancelled Target Cells Cancelled Tear Drop Cells Cancelled Ovalocytes Cancelled Stomatocytes Cancelled Gaspar-Abercrombie Bodies Cancelled Echinocytes Cancelled Acanthocytes (Spur) Cancelled Rouleaux Cancelled RBC Agglutinates Cancelled Schistocytes Cancelled RBC Morph Comment Cancelled Sezary Cell Cancelled Sodium 140 (136-145) mmol/L Potassium 4.1 (3.5-5.1) mmol/L Chloride 109 H (98-107) mmol/L Carbon Dioxide 23 (21-32) mmol/L Anion Gap 8.0 (3-11) BUN 10 (7-18) mg/dl Creatinine 0.73 (0.6-1.4) mg/dl Est Cr Clr Drug Dosing 119.8 ml/min Est GFR ( Amer) 119.3 Est GFR (Non-Af Amer) 103.0 BUN/Creatinine Ratio 14.2 (10-20) Glucose 178 H (70-99) mg/dl Calcium 8.6 (8.5-10.1) mg/dl Phosphorus 1.8 L (2.5-4.9) mg/dl Magnesium 1.8 (1.8-2.4) mg/dl Total Bilirubin 0.5 (0.2-1) mg/dl Direct Bilirubin 0.1 (0-0.2) mg/dl AST 90 H (15-37) U/L ALT 100 H (12-78) U/L Alkaline Phosphatase 173 H (45-117) U/L Total Creatine Kinase 57 (39-308) U/L Troponin I 0.030 (0-0.045) ng/ml NT-Pro-B Natriuret Pep 141 (0-900) pg/ml Total Protein 7.1 (6.4-8.2) gm/dl Albumin 3.2 L (3.4-5.0) gm/dl Globulin 3.9 (2.5-4.0) gm/dl Albumin/Globulin Ratio 0.8 L (0.9-2) Lipase 95 (73-393) U/L Anaplasma Smear Lyme Disease IgG Ab Negative (Negative) Lyme Disease IgM Ab Equivocal A (Negative) COVID-19 Eval Order SARS-CoV-2 (PCR) (Negative) Influenza Type A (PCR) (Neg) Influenza Type B (PCR) (Neg) RSV (RT-PCR) (Neg) 02/12/21 02/12/21 02/12/21 Range/Units 15:35 15:35 16:28 WBC 3.71 L RBC 4.17 L Hgb 12.8 L Hct 37.5 L MCV 89.9 MCH 30.7 MCHC 34.1 RDW Std Deviation 45.9 RDW Coeff of Liliya 13.9 Plt Count 41 L MPV 12.5 H Immature Gran % (Auto) 1.1 Neut % (Auto) 55.0 Lymph % (Auto) 33.4 Alpine % (Auto) 8.1 Eos % (Auto) 0.8 Baso % (Auto) 1.6 Neut # (Auto) 2.04 Lymph # (Auto) 1.24 Alpine # (Auto) 0.30 Eos # (Auto) 0.03 Baso # (Auto) 0.06 Immature Gran # (Auto) 0.04 H Absolute Nucleated RBC Nucleated RBC % (auto) Neutrophils % (Manual) Band Neutrophils % Lymphocytes % (Manual) Prolymphocyte % Reactive Lymphs % (Man) Monocytes % (Manual) Eosinophils % (Manual) Basophils % (Manual) Metamyelocytes % (Man) Myelocytes % (Man) Promyelocytes % (Man) Blast Cells % (Manual) Plasma Cell % (Manual) Other Cells % Nucleated RBC % Neutrophils # (Manual) Band Neutrophils # Total Absolute Neuts Lymphocytes # (Manual) Prolymphocyte # Reactive Lymphs # Total Abs Lymphocytes Monocytes # (Manual) Eosinophils # (Manual) Basophils # (Manual) Metamyelocytes # (Man) Myelocytes # (Manual) Promyelocytes # (Man) Blast Cells # (Man) Plasma Cell # (Manual) Other Cells # Nucleated RBCs # (Man) Hypersegmented Neuts Hyposegmented Neuts Hypogranular Neuts Large Granular Lymphs # Lrg Granular Lymphs Hairy Cells Smudge Cells Toxic Granulation Toxic Vacuolation Dohle Bodies Francisco Rods Platelet Estimate Decreased L Hypogranular Platelets Clumped Platelets Giant Platelets Platelet Satelliting RBC Morphology Polychromasia Hypochromasia Poikilocytosis Basophilic Stippling Anisocytosis Microcytosis Macrocytosis Spherocytes Pappenheimer Bodies Sickle Cells Target Cells Tear Drop Cells Ovalocytes Stomatocytes Gaspar-Abercrombie Bodies Echinocytes Acanthocytes (Spur) Rouleaux RBC Agglutinates Schistocytes RBC Morph Comment Sezary Cell Sodium (136-145) mmol/L Potassium (3.5-5.1) mmol/L Chloride (98-107) mmol/L Carbon Dioxide (21-32) mmol/L Anion Gap (3-11) BUN (7-18) mg/dl Creatinine (0.6-1.4) mg/dl Est Cr Clr Drug Dosing ml/min Est GFR ( Amer) Est GFR (Non-Af Amer) BUN/Creatinine Ratio (10-20) Glucose (70-99) mg/dl Calcium (8.5-10.1) mg/dl Phosphorus (2.5-4.9) mg/dl Magnesium (1.8-2.4) mg/dl Total Bilirubin (0.2-1) mg/dl Direct Bilirubin (0-0.2) mg/dl AST (15-37) U/L ALT (12-78) U/L Alkaline Phosphatase (45-117) U/L Total Creatine Kinase (39-308) U/L Troponin I (0-0.045) ng/ml NT-Pro-B Natriuret Pep (0-900) pg/ml Total Protein (6.4-8.2) gm/dl Albumin (3.4-5.0) gm/dl Globulin (2.5-4.0) gm/dl Albumin/Globulin Ratio (0.9-2) Lipase (73-393) U/L Anaplasma Smear See Comment Lyme Disease IgG Ab (Negative) Lyme Disease IgM Ab (Negative) COVID-19 Eval Order CovFluRsv at [facility] SARS-CoV-2 (PCR) NEGATIVE (Negative) Influenza Type A (PCR) Negative (Neg) Influenza Type B (PCR) Negative (Neg) RSV (RT-PCR) Negative (Neg) Administered Medications Albuterol (Albut/Ipratrop 3mg/0.5mg Neb 3 Ml Vial) 3 ml NEB QIDR ERIN Stop: 03/14/21 20:29 Last Admin: 02/12/21 22:03 Dose: 3 ml Documented by: [id number] Atorvastatin Calcium (Atorvastatin 40 Mg Tab) 80 mg PO HS ERIN Stop: 03/14/21 20:59 Last Admin: 02/12/21 21:29 Dose: 80 mg Documented by: [id number] Fluticasone/Vilanterol (Fluticasone/Vilanterol 100/25mcg 14 Puffs/Inhaler) 1 puffs INH BID ERIN Stop: 03/14/21 20:59 Last Admin: 02/12/21 21:28 Dose: 1 puffs Documented by: [id number] Gabapentin (Gabapentin 300 Mg Cap) 900 mg PO TID ERIN Stop: 03/14/21 20:59 Last Admin: 02/12/21 21:29 Dose: 900 mg Documented by: [id number] Metoprolol Tartrate (Metoprolol Tartrate 50 Mg Tab) 50 mg PO BID ERIN Stop: 03/14/21 20:59 Last Admin: 02/12/21 21:29 Dose: 50 mg Documented by: [id number] Morphine Sulfate (Morphine Sulfate Cr 15 Mg Tabcr) 15 mg PO Q12H ERIN Stop: 02/26/21 20:59 Last Admin: 02/12/21 20:54 Dose: 15 mg Documented by: [id number] Oxycodone HCl (Oxycodone Hcl Ir 5 Mg Tab (Immediate Release)) 15 mg PO Q6H PRN PRN Reason: Pain Stop: 02/26/21 20:29 Last Admin: 02/12/21 21:33 Dose: 15 mg Documented by: [id number] Discontinued Medications Albuterol (Albut/Ipratrop 3mg/0.5mg Neb 3 Ml Vial) 12 ml NEB ONE ONE Stop: 02/12/21 15:03 Last Admin: 02/12/21 15:56 Dose: 12 ml Documented by: [id number] Dexamethasone Sodium Phosphate (DexamethasonePf 10 Mg/Ml Vial) 10 mg IV NOW ONE Stop: 02/12/21 15:03 Last Admin: 02/12/21 15:24 Dose: 10 mg Documented by: [id number] Guaifenesin (Guaifenesin 600 Mg Tabcr) 600 mg PO NOW STA Stop: 02/12/21 15:03 Last Admin: 02/12/21 15:24 Dose: 600 mg Documented by: [id number] Acetaminophen (Ofirmev) 1,000 mg in 100 mls @ 400 mls/hr IV NOW STA Stop: 02/12/21 15:19 Last Infusion: 02/12/21 15:51 Dose: 400 mls/hr Documented by: [id number] Admin: 02/12/21 15:24 Dose: 400 mls/hr Documented by: [id number] Sodium Chloride (Nss) 500 mls @ 999 mls/hr IV .Q31M ONE Stop: 02/12/21 15:35 Last Infusion: 02/12/21 15:58 Dose: 999 mls/hr Documented by: [id number] Admin: 02/12/21 15:25 Dose: 999 mls/hr Documented by: [id number] Sodium Chloride (Nss) 500 mls @ 999 mls/hr IV .Q31M ONE Stop: 02/12/21 17:56 Last Infusion: 02/12/21 18:45 Dose: 999 mls/hr Documented by: [id number] Admin: 02/12/21 17:51 Dose: 999 mls/hr Documented by: [id number] Doxycycline Hyclate 100 mg/ (Dextrose) 110 mls @ 50 mls/hr IV NOW STA Stop: 02/12/21 19:38 Last Infusion: 02/12/21 20:31 Dose: 0 mls/hr Documented by: [id number] Admin: 02/12/21 17:51 Dose: 50 mls/hr Documented by: [id number] Sodium Phosphate 12 mmol/ (Sodium Chloride) 254 mls @ 88 mls/hr IV ONE ONE Stop: 02/13/21 01:08 Last Infusion: 02/13/21 01:33 Dose: 0 mls/hr Documented by: [id number] Admin: 02/12/21 22:39 Dose: 88 mls/hr Documented by: [id number] Imaging Data Radiologist's Impression: Chest X-Ray 02/12/21 15:02 XR chest 1V portable HISTORY: 55 years-old Male Chest Pain acute atypical chest pain COMPARISON: Chest radiograph 11/01/2020, chest CT 01/31/2021 TECHNIQUE: Portable AP view of the chest FINDINGS: Cardiomediastinal and hilar silhouettes are within normal limits. No pneumothorax, pleural effusion, airspace consolidation or overt pulmonary edema. Bones of the chest appear grossly intact. Partially imaged cervical spinal fusion hardware. IMPRESSION: No acute process. ACT 112: Negative or not required by law. The above report was generated using voice recognition software. It may contain grammatical, syntax or spelling errors. Electronically signed by: Edmond Carbajal M.D. 02/12/2021 3:56 PM Discharge Plan Visit Data Chief Complaint: Shortness of Breath/Dyspnea Stated Complaint: SOB,FEVER,COUGH ED Provider: Segundo Santiago Discharge Problem: COPD exacerbation, Pancytopenia, Transaminitis Patient Disposition: Admitted As Inpatient Discharge Instructions Interventions: ED Discharge Assessment Last Done: 02/12/21 20:07
--- NOTE | 2021-02-12 15:58 | XRay Report ---
XR chest 1V portable HISTORY: 55 years-old Male Chest Pain acute atypical chest pain COMPARISON: Chest radiograph 11/01/2020, chest CT 01/31/2021 TECHNIQUE: Portable AP view of the chest FINDINGS: Cardiomediastinal and hilar silhouettes are within normal limits. No pneumothorax, pleural effusion, airspace consolidation or overt pulmonary edema. Bones of the chest appear grossly intact. Partially imaged cervical spinal fusion hardware. IMPRESSION: No acute process. ACT 112: Negative or not required by law. The above report was generated using voice recognition software. It may contain grammatical, syntax o r spelling errors. Electronically signed by: Edmond Carbajal M.D. 02/12/2021 3:56 PM
[2021-02-12 16:18] LABS: Albumin Level 3.2 gm/dl (3.4-5.0); BUN Creatinine Ratio 14.2 (10-20); Bilirubin Direct 0.1 mg/dl (0-0.2); Calcium 8.6 mg/dl (8.5-10.1); Creatinine Clr Calc Pharmacy 119.8 ml/min; Est GFR (African American) 119.3; Magnesium 1.8 mg/dl (1.8-2.4); Potassium 4.1 mmol/L (3.5-5.1)
[2021-02-12 16:20] LABS: Albumin Globulin Ratio 0.8 (0.9-2); Bilirubin,Total 0.5 mg/dl (0.2-1); Globulin 3.9 gm/dl (2.5-4.0); Phosphorus 1.8 mg/dl (2.5-4.9); Total Protein 7.1 gm/dl (6.4-8.2); Troponin I 0.03 ng/ml (0-0.045)
[2021-02-12 16:40] LABS: Influenza A virus by PCR Negative (Neg); Influenza B virus by PCR Negative (Neg); RSV by PCR Negative (Neg); SARS CoV2 RNA(COVID-19) InHosp NEGATIVE (Negative)
[2021-02-12 17:19] LABS: Hematocrit (blood only) 37.5 % (42-52); Hemoglobin 12.8 g/dL (14.0-18.0); Mean Corpuscular Hemoglobin 30.7 pg (25-34); Mean Corpuscular Hgb Conc 34.1 g/dL (32-36); Mean Corpuscular Volume 89.9 fL (80-100); Mean Platelet Volume 12.5 fL (7.4-10.4); Platelet Count 41 K/uL (130-400); RDW Coefficient of Variation 13.9 % (11.5-14.5); RDW Standard Deviation 45.9 fL (36.4-46.3); Red Blood Count 4.17 M/uL (4.7-6.1); White Blood Count 3.71 K/uL (4.8-10.8)
[2021-02-12 17:21] LABS: Basophils # (auto) 0.06 K/uL (0-0.2); Basophils % (auto) 1.6 %; Eosinophils # (auto) 0.03 K/uL (0-0.5); Eosinophils % (auto) 0.8 %; Immature Granulocytes # (auto) 0.04 K/uL (0.00-0.02); Immature Granulocytes % (auto) 1.1 %; Lymphocytes # (auto) 1.24 K/uL (1.2-3.4); Lymphocytes % (auto) 33.4 %; Monocytes % (auto) 8.1 %; Neutrophils # (auto) 2.04 K/uL (1.4-6.5); Platelet Estimate Decreased (Normal)
[2021-02-12] MEDS ORDERED: DOXYCYCLINE HYCLATE 100 MG in DEXTROSE 5% 100 ML IV STA (17:27)
[2021-02-12 18:10] LABS: Lyme Ab IgG w/WB Rflx Negative (Negative)
--- NOTE | 2021-02-12 18:28 | History & Physical Report ---
Date of Service February 12, 2021 Assessment & Plan (1) Sepsis: Lactic acid 1.2 1L bolus given in ER and appears hemodynamically stable at present time. Follow up blood cultures, Lyme Ab and Anaplasmosis DNA PCR Suspect presentation secondary to anaplasmosis. UA pending on admission. 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 Peripheral smear negative, DNA PCR pending Doxycycline 100mg IV BID (3) COPD exacerbation: Possible diagnosis. Wheezing noted by ER provider although not wheezing on exam on admission. Will give short course of prednisone 40mg PO daily for 2 further days Duoneb QID + PRN (4) Chronic hypoxemic respiratory failure: 2L O2 PRN usually, suspect not significantly off his baseline. Aim O2 sats > 90%. (5) Pancytopenia: Suspected anaplasmosis as above (6) Thrombocytopenia: Suspected anaplasmosis as above. Hold on chemical VTE prophylaxis until Plt > 50. (7) Transaminitis: Suspected anaplasmosis as above. Trend with AM labs. No abdominal pain to suggest primary liver pathology (8) Chronic, continuous use of opioids: Chronic neck and back pain at baseline. Continue his chronic opiate regimen with morphine 50 mg extended release twice daily and oxycodone 15 mg every 6 hourly as needed Continue his usual duloxetine and gabapentin for back pain (9) Tobacco abuse: Advised cessation as have multiple prior providers. (10) Hypertension: Continue metoprolol tartrate 50mg PO BID and valsartan 160mg PO daily with hold parameters. Hold PRN furosemide and monitor for hypervolemia. (11) Hyperlipemia: Continue atorvastatin (12) History of non-ST elevation myocardial infarction (NSTEMI): Continue aspirin, metoprolol, valsartan and atorvastatin (13) SAUL (obstructive sleep apnea): CPAP HS (14) DVT prophylaxis: SCDs. Chemical prophylaxis deferred due to thrombocytopenia. Admission and Anticipated Discharge Date Admission Date: February 12, 2021 History of Present Illness Chief Complaint: Fevers Primary Care Provider: Mansoor Zhao MD Meet Lindsay is a 55-year-old male who presents to the ER with shortness of breath and fevers for 4 days. He reports having a tick bite 2 weeks ago that was on for possibly 1-2 days and got progressively more painful over the following week. He did not seek medical attention for this. He has COPD on 2L of oxygen as needed. Associated shortness of breath (although he notes he is always somewhat short of breath) getting progressively worse over the last 2 days with increased yellow productive sputum and decreased appetite. No known COVID-19 exposures. He denies any nausea, vomiting, constipation, diarrhea, loss of taste or smell, hemoptysis, hematemesis, bright red blood in stool, melena, abdominal or chest pain. H In the ER CXR showed no acute pathology. Wheezing noted on exam by ER provider and he was treated for COPD exacerbation with Dexamethasone and Duoneb with some mild improvement with his shortness of breath. Labs and history concerning for tick-borne illness and he was started on doxycycline 100mg IV. He was referred to medicine for admission and ongoing management of COPD exacerbation and ?benoit plasmosis. Allergies Allergy/AdvReac Type Severity Reaction Status Date / Time bee venom protein (honey bee) Allergy Severe PASSES OUT Verified 02/12/21 18:20 naproxen Allergy Intermediate SEVERE RASH Verified 02/12/21 18:20 tramadol AdvReac Intermediate GI SYMPTOMS Verified 02/12/21 18:20 Home Medications Medication Instructions Recorded Confirmed Type albuterol sulfate 2 puff INHALATION Q4H PRN 01/02/19 02/12/21 History epinephrine [EpiPen] 0.3 mg IM UD PRN 01/02/19 02/12/21 History aspirin 325 mg tablet 325 mg PO QAM tab 07/02/19 02/12/21 History docusate sodium 100 mg capsule 100 mg PO BID PRN 07/02/19 02/12/21 History atorvastatin 80 mg tablet 80 mg PO HS #90 tab 01/06/20 02/12/21 Rx nitroglycerin 0.4 mg sublingual 0.4 mg SUBLINGUAL ONCE PRN #20 tab 01/11/20 02/12/21 Rx tablet ipratropium 0.5 mg-albuterol 3 mg 3 ml INHALATION QID PRN #180 ml 05/24/20 02/12/21 Rx (2.5 mg base)/3 mL nebulization soln Incruse Ellipta 1 inh INHALATION QAM 11/01/20 02/12/21 History duloxetine 60 mg PO QAM 11/01/20 02/12/21 History furosemide 40 mg tablet 40 mg PO DAILY PRN #30 tab 01/02/21 02/12/21 Rx cyanocobalamin (vitamin B-12) 100 100 mcg PO QAM #90 tab 01/05/21 02/12/21 Rx mcg tablet metoprolol tartrate 50 mg tablet 50 mg PO BID #180 tab 01/23/21 02/12/21 Rx oxycodone 15 mg tablet 15 mg PO Q6H #90 tab 01/23/21 02/12/21 Rx gabapentin 300 mg capsule 900 mg PO TID #270 cap 01/26/21 02/12/21 Rx valsartan 160 mg tablet 160 mg PO QAM #90 tab 01/26/21 02/12/21 Rx fluticasone furoate 100 1 inh INHALATION BID #60 ea 01/31/21 02/12/21 Rx mcg-vilanterol 25 mcg/dose inhalation powder morphine 15 mg tablet,extended 15 mg PO Q12H #60 tab 02/02/21 02/12/21 Rx release Past Med/Surg History Medical History Abnormal CT scan, chest Anaphylactic reaction Anemia Anxiety disorder Arthritis of right shoulder region Back pain Bilateral carpal tunnel syndrome Chest pain Chronic bronchitis Chronic hypoxemic respiratory failure Chronic pain Chronic pain syndrome Chronic, continuous use of opioids COPD (chronic obstructive pulmonary disease) COPD, mild Diastolic CHF, acute on chronic Dyshidrotic eczema Excessive daytime sleepiness Gait disturbance GERD (gastroesophageal reflux disease) H/O supraventricular tachycardia Hypercholesterolemia Hyperlipemia Hypertension Insomnia Internal hemorrhoids Lumbar radiculopathy Male erectile disorder of organic origin Mitral valve disorder MVP (mitral valve prolapse) Neural foraminal stenosis of cervical spine Nicotine dependence NSTEMI (non-ST elevated myocardial infarction) SAUL (obstructive sleep apnea) Polyneuropathy Pre-diabetes Seborrheic keratosis Secondary pulmonary hypertension Tobacco abuse Tobacco abuse Ulnar neuropathy at elbow Vitamin B12 deficiency Surgical History H/O cardiac catheterization History of cholecystectomy Hx of appendectomy Hx of arthroscopic knee surgery S/P appy S/P cervical spinal fusion S/P tonsillectomy and adenoidectomy Family History Father Hypertension Brother Hypertension Other Allergies Cancer Diabetes Heart disease No significant family history Denies family history of Tuberculosis Emphysema, unspecified Lung disease Asthma Social History Smoking Status: Current every day smoker packs per day: 1; Years Smoked: 25; Cigarettes Per Day: 20; Second Hand Exposure: No; Do You Dip or Chew Tobacco: No; Tobacco Cessation Education Requested by Patient: No Hx Alcohol Use: No Hx Substance Use: No Preferred Language: Kazakh Communication Ability: Effective Visual Impairment: No Limitations Nanny Caregiver Required: No Beliefs That Will Affect Care: None marital status: Current Living Situation: Spouse Other Information That Helps Us Care for You: No Feels Safe at Home: Yes Safety Concerns: Feels Safe At This Time Assistive Devices: None Assistive Devices Comment: oxygen PRN Review of Systems Review of Systems: All systems reviewed & are unremarkable except as noted in HPI & below Physical Exam Constitutional: well developed and well nourished; no acute distress Eyes: PERRL, conjunctivae normal, anicteric sclerae ENMT: external ear and nose normal, oropharynx normal Neck: trachea midline, no thyromegaly Respiratory: normal respiratory effort, lungs clear to auscultation Cardiovascular: Rate/Rhythm: regular rhythm and + tachycardic Heart Sounds: no murmur Vessels: no JVD Extremities: normal capillary refill and + pedal edema (trace pre-tibial b/l equal); no calf tenderness Gastrointestinal (Abdomen): normal bowel sounds, soft, nontender, no hepatosplenomegaly Musculoskeletal: no cyanosis or clubbing, extremities motor strength 5/5 Skin: no rashes, warm and dry Neurologic: moves all extremities and awake; no focal motor deficits and not confused Speech / Cognition: normal speech Motor/Sensory: no tremor and no pronator drift Psychiatric: A+Ox3, euthymic affect Genitourinary: no CVA tenderness Results & Data Results & Data ([facility]) Vital Signs (Past 12 Hours) Vital Signs Temp Pulse Pulse Resp BP Pulse Ox 02/12/21 17:50 93 H 23 94 02/12/21 17:45 94 H 20 125/81 94 02/12/21 17:40 90 23 94 02/12/21 17:31 91 H 23 95 02/12/21 17:30 90 21 136/80 98 02/12/21 17:20 90 27 H 97 02/12/21 17:15 93 H 21 117/74 96 02/12/21 17:10 91 H 22 96 02/12/21 17:01 89 24 97 02/12/21 17:00 88 22 115/89 97 02/12/21 16:50 87 24 96 02/12/21 16:45 90 20 121/78 97 02/12/21 16:40 89 21 97 02/12/21 16:31 88 20 99 02/12/21 16:30 86 22 119/79 97 02/12/21 16:20 84 27 H 97 02/12/21 16:17 83 23 99 02/12/21 16:16 83 24 122/86 99 02/12/21 16:10 82 28 H 91 02/12/21 16:01 82 22 98 02/12/21 16:00 81 22 113/94 98 02/12/21 15:56 83 18 98 02/12/21 15:50 85 21 99 02/12/21 15:45 90 40 H 127/79 95 02/12/21 15:40 82 21 96 02/12/21 15:31 87 27 H 95 02/12/21 15:30 83 22 127/81 95 02/12/21 15:21 88 25 H 94 02/12/21 15:20 88 17 110/86 94 02/12/21 14:45 36.8 C 105 H 16 119/82 94 Diagnostic Findings XR chest 1V portable IMPRESSION: No acute process. Medications Administered ER medications given: DuoNeb 2 mL nebulizer Dexamethasone 10 mg IV Guaifenesin 600 mg p.o. Acetaminophen 1 g IV NSS 500 mL bolus x2 Doxycycline 100 mg IV ECG Indication: SOB/dyspnea Rate (beats per minute): 91 Rhythm: normal sinus Findings: no acute ischemic change Comparison ECG Date: from (November 01, 2020) Change: no significant change Code Status & VTE Plan Code Status Full VTE Prophylaxis Plan VTE Prophylaxis will be ordered: Yes Reason for no VTE drug order: Contraindicated (Plt < 50) PG Care Time/CCT Total # of Minutes Spent Total Time Spent with Patient: Total time spent is greater than 50% in coordination of care (as documented) at patient's floor/unit and/or counseling patient: Coding Level of Care Code 07045 Initial Inpt Care Lvl 3 Diagnoses Sepsis A41.9; R65.20; D65 Sepsis type: sepsis due to unspecified organism Sepsis acute organ dysfunction status: with acute organ dysfunction Severe sepsis acute organ dysfunction type: disseminated intravascular coagulopathy Severe sepsis shock status: without septic shock Anaplasmosis A77.49 COPD exacerbation J44.1 Chronic hypoxemic respiratory failure J96.11 Pancytopenia D61.818 Thrombocytopenia D69.6 Transaminitis R74.01 Chronic, continuous use of opioids F11.90 Tobacco abuse Z72.0 Hypertension I10 Hyperlipemia E78.5 History of non-ST elevation myocardial infarction (NSTEMI) I25.2 SAUL (obstructive sleep apnea) G47.33 DVT prophylaxis Z29.9 (1) Sepsis Sepsis type: sepsis due to unspecified organism Sepsis acute organ dysfunction status: with acute organ dysfunction Severe sepsis acute organ dysfunction type: disseminated intravascular coagulopathy Severe sepsis shock status: without septic shock Qualified Code(s): A41.9 - Sepsis, unspecified organism; R65.20 - Severe sepsis without septic shock; D65 - Disseminated intravascular coagulation [defibrination syndrome]
[2021-02-12 18:30] LABS: Lyme Ab IgM w/WB Rflx Equivocal (Negative)
[2021-02-12 20:06] LABS: Fibrinogen 335 mg/dl (184-400); Partial Thromboplastin Time 27.5 Seconds (21.0-31.0); Prothrombin Time 10.3 Seconds (9.0-12.0)
[2021-02-12 20:13] LABS: D Dimer 10690 ug/L FEU (0-500)
[2021-02-12] MEDS ORDERED: POLYETHYLENE (MIRALAX) 17 GM PACK PO PRN (20:30)
[2021-02-12] MEDS ORDERED: ACETAMINOPHEN 325 MG TAB PO PRN (20:30)
[2021-02-12] MEDS ORDERED: ONDANSETRON INJ 2 MG/ML 2 ML VIAL IV PRN (20:30)
[2021-02-12] MEDS: MoRPHine SULFATE CR 15 MG TABCR PO SCH (20:54)
[2021-02-12] MEDS: FLUTICASONE/VILANTEROL 100/25MCG 14 PUFFS/INHALER INH SCH (21:28)
[2021-02-12] MEDS: ATORVASTATIN 40 MG TAB PO SCH (21:29)
[2021-02-12] MEDS: METOPROLOL TARTRATE 50 MG TAB PO SCH (21:29)
[2021-02-12] MEDS: GABAPENTIN 300 MG CAP PO SCH (21:29)
[2021-02-12] MEDS: oxyCODONE HCL IR 5 MG TAB (IMMEDIATE RELEASE) PO PRN (21:33)
[2021-02-12] MEDS: ALBUT/IPRATROP 3MG/0.5MG NEB 3 ML VIAL NEB SCH (22:03)
[2021-02-12] MEDS ORDERED: SODIUM PHOSPHATE 3 MMOL/1 ML INFUSION IV STA (22:08)
[2021-02-12] MEDS ORDERED: SODIUM PHOSPHATE 12 MMOL in SODIUM CHLORIDE 0.9% 250 ML IV ONE (22:15)
--- NOTE | 2021-02-12 23:12 | Electrocardiogram Report ---
Test Reason : Blood Pressure : / mmHG Vent. Rate : 091 BPM Atrial Rate : 091 BPM P-R Int : 140 ms QRS Dur : 098 ms QT Int : 376 ms P-R-T Axes : 052 044 069 degrees QTc Int : 462 ms Normal sinus rhythm Normal ECG When compared with ECG of 01-NOV-2020 18:48, No significant change was found Confirmed by Hira Jain ([id number]) on 02/12/2021 11:12:04 PM Referred By: Confirmed By:Hira Jain
[2021-02-13] MEDS: oxyCODONE HCL IR 5 MG TAB (IMMEDIATE RELEASE) PO PRN ×3 (03:59→17:55)
[2021-02-13] MEDS: DOXYCYCLINE HYCLATE 100 MG in DEXTROSE 5% 100 ML IV SCH ×2 (05:44→17:30)
[2021-02-13 06:52] LABS: Hematocrit (blood only) 36.1 % (42-52); Hemoglobin 12.5 g/dL (14.0-18.0); Mean Corpuscular Hemoglobin 30.7 pg (25-34); Mean Corpuscular Hgb Conc 34.6 g/dL (32-36); Mean Corpuscular Volume 88.7 fL (80-100); RDW Coefficient of Variation 13.8 % (11.5-14.5); RDW Standard Deviation 45.6 fL (36.4-46.3); Red Blood Count 4.07 M/uL (4.7-6.1); White Blood Count 5.54 K/uL (4.8-10.8)
[2021-02-13 07:12] LABS: Basophils # (auto) 0.11 K/uL (0-0.2); Immature Granulocytes # (auto) 0.02 K/uL (0.00-0.02); Immature Granulocytes % (auto) 0.4 %; Lymphocytes # (auto) 2.25 K/uL (1.2-3.4); Lymphocytes % (auto) 40.6 %; Mean Platelet Volume 11.9 fL (7.4-10.4); Monocytes # (auto) 0.42 K/uL (0.11-0.59); Monocytes % (auto) 7.6 %; Neutrophils # (auto) 2.74 K/uL (1.4-6.5); Neutrophils % (auto) 49.4 %; Platelet Count 58 K/uL (130-400); RBC Morphology Unremarkable
[2021-02-13] MEDS: ALBUT/IPRATROP 3MG/0.5MG NEB 3 ML VIAL NEB SCH ×4 (07:18→19:20)
[2021-02-13 07:29] LABS: Albumin Level 2.8 gm/dl (3.4-5.0); BUN Creatinine Ratio 13.8 (10-20); Calcium 8.8 mg/dl (8.5-10.1); Creatinine Clr Calc Pharmacy 119.8 ml/min; Est GFR (African American) 119.3; Potassium 4.2 mmol/L (3.5-5.1)
[2021-02-13 07:32] LABS: Albumin Globulin Ratio 0.7 (0.9-2); Bilirubin,Total 0.4 mg/dl (0.2-1); Globulin 3.9 gm/dl (2.5-4.0); Phosphorus 1.6 mg/dl (2.5-4.9); Total Protein 6.7 gm/dl (6.4-8.2)
[2021-02-13] MEDS: DULoxetine HCL 60 MG CAP PO SCH (08:13)
[2021-02-13] MEDS: ASPIRIN 325 MG ECTAB PO SCH (08:13)
[2021-02-13] MEDS: VALSARTAN 80 MG TAB PO SCH (08:13)
[2021-02-13] MEDS: CYANOCOBALAMIN (VITAMIN B-12) 100 MCG TABLET PO SCH (08:13)
[2021-02-13] MEDS: predniSONE 20 MG TAB PO SCH (08:13)
[2021-02-13] MEDS: GABAPENTIN 300 MG CAP PO SCH ×3 (08:14→20:48)
[2021-02-13] MEDS: METOPROLOL TARTRATE 50 MG TAB PO SCH ×2 (08:14→20:48)
[2021-02-13] MEDS: FLUTICASONE/VILANTEROL 100/25MCG 14 PUFFS/INHALER INH SCH ×2 (08:14→21:58)
[2021-02-13] MEDS: UMECLIDINIUM BROMIDE 62.5MCG/BLISTER 7 PUFFS/INHALER INH SCH (08:15)
[2021-02-13] MEDS: MoRPHine SULFATE CR 15 MG TABCR PO SCH ×2 (08:17→20:49)
[2021-02-13] MEDS ORDERED: methylPREDNISolone 40 MG in SYRINGE 0 ML IV SCH (09:00)
[2021-02-13] MEDS ORDERED: POTASSIUM PHOS 3 MMOL/1 ML INFUSION IV STA (09:54)
[2021-02-13] MEDS ORDERED: POTASSIUM PHOSPHATE 21 MMOL in SODIUM CHLORIDE 0.9% 500 ML IV STA (09:57)
[2021-02-13] MEDS: NICOTINE 21 MG/24 HR TDSY TD SCH (18:48)
--- NOTE | 2021-02-13 19:52 | XRay Report ---
TWO VIEW CHEST CLINICAL HISTORY: Fever. Dyspnea. FINDINGS: PA and lateral chest radiographs are compared to study dated 02/12/2021. Correlation is made with chest CT dated 01/31/2021. The cardiomediastinal silhouette is unremarkable. Chronic interstitial thickening is similar to previous. There is mild bibasilar scarring/atelectasis. No airspace consoli dation or pleural effusion is identified. There is no pneumothorax. The skeletal structures are osteo penic. Fusion hardware is noted in the lower cervical spine. A compression deformity is seen in the u pper lumbar spine. Cholecystectomy clips are noted in the right upper quadrant. IMPRESSION: No active disease in the chest. ACT 112: Negative or not required by law. Electronically signed by: Rio Laurent M.D. 02/13/2021 7:51 PM
[2021-02-13] MEDS: ATORVASTATIN 40 MG TAB PO SCH (20:48)
--- NOTE | 2021-02-13 20:53 | Hospitalist Progress Note ---
Date of Service February 13, 2021 Assessment & Plan (1) Sepsis: Suspected to be secondary to anaplasmosis. I repeated a cxr today, 2-view, no evidence of pneumonia. Blood cx's neg. Fevers improved. Cont doxy for suspected anaplasmosis. Lyme screen also +. Doxy will cover lyme as well of course. Low threshold to repeat COVID testing given recent URI and lower respiratory symptoms. 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 Cont Doxycycline 100mg IV BID. Thrombocytopenia and elevated LFTs c/w anaplasmosis. COVID negative. Other possibilities would be viral syndrome from MONO, CMV, etc. Repeat labs am. DNA test for anaplasmosis pending. Western blot for lyme pending. (3) COPD exacerbation: On prednisone 40mg daily. Would wean over 5 days given no significant COPD symptoms (was having mild symptoms at presentation). Repeat cxr today negative for infiltrates. (4) Pancytopenia: Suspected anaplasmosis as above Other viral etiologies possible if not tick-borne see above (5) Thrombocytopenia: Suspected anaplasmosis as above. CBC in am. (6) Transaminitis: Suspected anaplasmosis as above. Trend with AM labs. COVID neg. Other viral etiologies possible if not anaplasmosis. (7) Chronic, continuous use of opioids: Chronic neck and back pain at baseline. Continue his chronic opiate regimen with morphine 50 mg extended release twice daily and oxycodone 15 mg every 6 hourly as needed Continue his usual duloxetine and gabapentin for back pain (8) Tobacco abuse: Advised cessation Nicoderm patch 21mg/day (9) Hypertension: Continue metoprolol tartrate 50mg PO BID and valsartan 160mg PO daily with hold parameters. (10) Hyperlipemia: Continue atorvastatin but hold if ast/alt worsen (11) History of non-ST elevation myocardial infarction (NSTEMI): Continue aspirin, metoprolol, valsartan and atorvastatin no ACS symptoms while here (12) SAUL (obstructive sleep apnea): CPAP HS (13) DVT prophylaxis: SCDs. Chemical prophylaxis deferred due to thrombocytopenia. updated pt's by phone today Admission and Anticipated Discharge Date Admission Date: February 12, 2021 Subjective patient feeling much better today more energy better appetite not so achy fevers/chills better less dyspnea minimal cough had multiple tick bites 2 weeks ago largest tick was back of neck pulled off by no COVID exposures is essentially retired and stays at home in [place] continues to smoke -- requests nicoderm patch Review of Systems Constitutional: + fatigue; no fever, no chills, no body aches and no anorexia Respiratory: + cough and + dyspnea on exertion Cardiovascular: no chest pain Gastrointestinal: no abdominal pain Physical Exam Constitutional: no acute distress and no altered mental status ENMT: external ear and nose normal, oropharynx normal Respiratory: normal respiratory effort, lungs clear to auscultation Auscultation: + diminished lung sounds (bases) and + crackles (scant bases); no wheezes Cardiovascular: RRR, no murmur, no edema Heart Sounds: normal S1 and normal S2 Vessels: posterior tibial pulses present and dorsalis pedis pulses present; no JVD Extremities: no edema Gastrointestinal (Abdomen): normal bowel sounds, soft, nontender, no hepatosplenomegaly Musculoskeletal: no joint synovitis Skin: no rashes, warm and dry previous tick bite site nape of neck - no cellulitis Psychiatric: A+Ox3, euthymic affect Results & Data Results & Data ([facility]) Vital Signs (Past 12 Hours) Vital Signs Temp Pulse Pulse Resp BP Pulse Ox 02/13/21 19:21 100 H 16 94 02/13/21 19:20 36.6 C 100 H 20 136/71 91 02/13/21 18:03 91 H 02/13/21 15:46 86 18 94 02/13/21 14:00 37.2 C 92 H 18 115/69 95 02/13/21 11:47 99 H 16 96 02/13/21 11:42 36.7 C 90 18 121/71 92 Laboratory Results Laboratory Results - last 24 hr 02/13/21 02/13/21 06:15 06:15 WBC 5.54 RBC 4.07 L Hgb 12.5 L Hct 36.1 L MCV 88.7 MCH 30.7 MCHC 34.6 RDW Std Deviation 45.6 RDW Coeff of Liliya 13.8 Plt Count 58 L MPV 11.9 H Immature Gran % (Auto) 0.4 Neut % (Auto) 49.4 Lymph % (Auto) 40.6 [place] % (Auto) 7.6 Eos % (Auto) 0.0 Baso % (Auto) 2.0 Neut # (Auto) 2.74 Lymph # (Auto) 2.25 [place] # (Auto) 0.42 Eos # (Auto) 0.00 Baso # (Auto) 0.11 Immature Gran # (Auto) 0.02 RBC Morphology Unremarkable Sodium 139 Potassium 4.2 Chloride 108 H Carbon Dioxide 26 Anion Gap 5.0 BUN 10 Creatinine 0.73 Est Cr Clr Drug Dosing 119.8 Est GFR ( Amer) 119.3 Est GFR (Non-Af Amer) 103.0 BUN/Creatinine Ratio 13.8 Glucose 184 H Calcium 8.8 Phosphorus 1.6 L Total Bilirubin 0.4 AST 69 H ALT 89 H Alkaline Phosphatase 150 H Total Protein 6.7 Albumin 2.8 L Globulin 3.9 Albumin/Globulin Ratio 0.7 L PG Care Time/CCT Total # of Minutes Spent Total Time Spent with Patient: Total time spent is greater than 50% in coordination of care (as documented) at patient's floor/unit and/or counseling patient: Coding Level of Care Code 33434 Subseq Hosp Care Lvl 2 Diagnoses Sepsis A41.9; R65.20; D65 Sepsis type: sepsis due to unspecified organism Sepsis acute organ dysfunction status: with acute organ dysfunction Severe sepsis acute organ dysfunction type: disseminated intravascular coagulopathy Severe sepsis shock status: without septic shock Anaplasmosis A77.49 COPD exacerbation J44.1 Pancytopenia D61.818 Thrombocytopenia D69.6 Transaminitis R74.01 Chronic, continuous use of opioids F11.90 Tobacco abuse Z72.0 Hypertension I10 Hyperlipemia E78.5 History of non-ST elevation myocardial infarction (NSTEMI) I25.2 SAUL (obstructive sleep apnea) G47.33 DVT prophylaxis Z29.9 (1) Sepsis Sepsis type: sepsis due to unspecified organism Sepsis acute organ dysfunction status: with acute organ dysfunction Severe sepsis acute organ dysfunction type: disseminated intravascular coagulopathy Severe sepsis shock status: without septic shock Qualified Code(s): A41.9 - Sepsis, unspecified organism; R65.20 - Severe sepsis without septic shock; D65 - Disseminated intravascular coagulation [defibrination syndrome]
[2021-02-14] MEDS: oxyCODONE HCL IR 5 MG TAB (IMMEDIATE RELEASE) PO PRN ×4 (00:04→20:38)
[2021-02-14] MEDS: DOXYCYCLINE HYCLATE 100 MG in DEXTROSE 5% 100 ML IV SCH (05:45)
[2021-02-14] MEDS: ALBUT/IPRATROP 3MG/0.5MG NEB 3 ML VIAL NEB SCH ×4 (07:12→19:14)
[2021-02-14] MEDS: CYANOCOBALAMIN (VITAMIN B-12) 100 MCG TABLET PO SCH (08:28)
[2021-02-14] MEDS: predniSONE 20 MG TAB PO SCH (08:28)
[2021-02-14] MEDS: VALSARTAN 80 MG TAB PO SCH (08:28)
[2021-02-14] MEDS: METOPROLOL TARTRATE 50 MG TAB PO SCH ×2 (08:28→20:30)
[2021-02-14] MEDS: DULoxetine HCL 60 MG CAP PO SCH (08:29)
[2021-02-14] MEDS: FLUTICASONE/VILANTEROL 100/25MCG 14 PUFFS/INHALER INH SCH ×2 (08:29→20:27)
[2021-02-14] MEDS: ASPIRIN 325 MG ECTAB PO SCH (08:29)
[2021-02-14] MEDS: GABAPENTIN 300 MG CAP PO SCH ×3 (08:30→20:29)
[2021-02-14] MEDS: NICOTINE 21 MG/24 HR TDSY TD SCH (08:31)
[2021-02-14] MEDS: UMECLIDINIUM BROMIDE 62.5MCG/BLISTER 7 PUFFS/INHALER INH SCH (08:31)
[2021-02-14] MEDS: MoRPHine SULFATE CR 15 MG TABCR PO SCH ×2 (08:56→20:50)
[2021-02-14 10:37] LABS: Hematocrit (blood only) 33.7 % (42-52); Hemoglobin 11.4 g/dL (14.0-18.0); Mean Corpuscular Hemoglobin 30.1 pg (25-34); Mean Corpuscular Hgb Conc 33.8 g/dL (32-36); Mean Corpuscular Volume 88.9 fL (80-100); Mean Platelet Volume 10.8 fL (7.4-10.4); Platelet Count 97 K/uL (130-400); RDW Coefficient of Variation 13.9 % (11.5-14.5); RDW Standard Deviation 45.6 fL (36.4-46.3); Red Blood Count 3.79 M/uL (4.7-6.1); White Blood Count 8.45 K/uL (4.8-10.8)
[2021-02-14 10:53] LABS: D Dimer 5370 ug/L FEU (0-500)
[2021-02-14 11:00] LABS: Albumin Level 2.8 gm/dl (3.4-5.0); BUN Creatinine Ratio 22.9 (10-20); Calcium 8.2 mg/dl (8.5-10.1); Creatinine Clr Calc Pharmacy 120.6 ml/min; Est GFR (Non-African American) 103.6
[2021-02-14 11:01] LABS: Basophils # (auto) 0.02 K/uL (0-0.2); Basophils % (auto) 0.2 %; Immature Granulocytes # (auto) 0.09 K/uL (0.00-0.02); Immature Granulocytes % (auto) 1.1 %; Lymphocytes # (auto) 2.94 K/uL (1.2-3.4); Lymphocytes % (auto) 34.8 %; Monocytes % (auto) 7.1 %; Neutrophils % (auto) 56.8 %; Platelet Estimate Decreased (Normal); RBC Morphology Unremarkable
[2021-02-14 11:03] LABS: Albumin Globulin Ratio 0.8 (0.9-2); Bilirubin,Total 0.4 mg/dl (0.2-1); Globulin 3.5 gm/dl (2.5-4.0); Total Protein 6.3 gm/dl (6.4-8.2)
[2021-02-14] MEDS ORDERED: GLUCAGON FOR INJ 1 MG VIAL IM PRN (11:15)
[2021-02-14] MEDS ORDERED: GLUCOSE 40% GEL 15 GM TUBE PO PRN (11:15)
[2021-02-14] MEDS ORDERED: DEXTROSE 50% 50 ML SYRINGE IV PRN (11:15)
[2021-02-14] MEDS ORDERED: CARBOHYDRATES FOR HYPOGLYCEMIA PO PRN (11:15)
[2021-02-14] MEDS ORDERED: GLUCOSE 10 TABS/TUBE PO PRN (11:15)
[2021-02-14] MEDS: INSULIN ASPART 100 UNITS/ML 3 ML PEN SC SCH ×3 (12:22→20:43)
[2021-02-14] MEDS ORDERED: INSULIN GLARGINE SOLOSTAR 100 UNITS/ML 3 ML PEN SC ONE (18:17)
[2021-02-14] MEDS: ATORVASTATIN 40 MG TAB PO SCH (20:25)
[2021-02-14] MEDS: DOXYCYCLINE HYCLATE 100 MG CAP PO SCH (20:25)
[2021-02-15 06:27] LABS: Hematocrit (blood only) 34.3 % (42-52); Hemoglobin 11.9 g/dL (14.0-18.0); Mean Corpuscular Hemoglobin 30.8 pg (25-34); Mean Corpuscular Hgb Conc 34.7 g/dL (32-36); Mean Corpuscular Volume 88.9 fL (80-100); Mean Platelet Volume 10.3 fL (7.4-10.4); Platelet Count 132 K/uL (130-400); RDW Standard Deviation 45.7 fL (36.4-46.3); Red Blood Count 3.86 M/uL (4.7-6.1); White Blood Count 8.61 K/uL (4.8-10.8)
[2021-02-15 06:41] LABS: Estimated Average Glucose 146 mg/dl; Hemoglobin A1C 6.7 % (4.5-5.6)
[2021-02-15 06:57] LABS: BUN Creatinine Ratio 25.5 (10-20); Calcium 8.4 mg/dl (8.5-10.1); Est GFR (African American) 122.1; Est GFR (Non-African American) 105.4; Potassium 3.7 mmol/L (3.5-5.1)
[2021-02-15 07:00] LABS: Albumin Globulin Ratio 0.8 (0.9-2); Bilirubin,Total 0.4 mg/dl (0.2-1); Globulin 3.7 gm/dl (2.5-4.0); Total Protein 6.7 gm/dl (6.4-8.2)
[2021-02-15] MEDS: ALBUT/IPRATROP 3MG/0.5MG NEB 3 ML VIAL NEB SCH (07:26)
[2021-02-15] MEDS: oxyCODONE HCL IR 5 MG TAB (IMMEDIATE RELEASE) PO PRN (07:40)
--- NOTE | 2021-02-15 08:03 | Hospitalist Progress Note ---
Date of Service February 14, 2021 Assessment & Plan (1) Sepsis: Likely 2nd anaplasmosis. Resolved. No evidence of pneumonia on imaging. Blood cx's neg. Fevers resolved. COVID negative. FLU negative. Cont doxy for suspected anaplasmosis. Lyme screen also +. Doxy will cover lyme as well of course. Rx 14 day course. 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 Cont Doxycycline 100mg BID x 14 days. Thrombocytopenia and elevated LFTs c/w anaplasmosis. Platelets improving. LFTs unchanged but suspect will improve next few days. COVID negative. Repeat labs am. DNA test for anaplasmosis pending. Western blot for lyme pending. (3) COPD exacerbation: On prednisone 40mg daily. since he is improving will lower to 30mg/day. (4) Pancytopenia: Suspected anaplasmosis as above Other viral etiologies possible if not tick-borne see above CBC overall improving repeat CBC am (5) Thrombocytopenia: Suspected anaplasmosis as above. CBC in am. IMPROVING (6) Transaminitis: Suspected anaplasmosis as above. Trend with AM labs. COVID neg. Other viral etiologies possible if not anaplasmosis. (7) Chronic, continuous use of opioids: Chronic neck and back pain at baseline. Continue his chronic opiate regimen with morphine 50 mg extended release twice daily and oxycodone 15 mg every 6 hourly as needed Continue his usual duloxetine and gabapentin for back pain (8) Tobacco abuse: Advised cessation Nicoderm patch 21mg/day (9) Hypertension: Continue metoprolol tartrate 50mg PO BID and valsartan 160mg PO daily Uncontrolled, suspect due to steroids Trend (10) Hyperlipemia: Continue atorvastatin but hold if ast/alt worsen (11) History of non-ST elevation myocardial infarction (NSTEMI): Continue aspirin, metoprolol, valsartan and atorvastatin no ACS symptoms while here (12) SAUL (obstructive sleep apnea): CPAP HS (13) Diabetes mellitus type 2, uncontrolled: change diet to DM diet DM education consult placed start lantus 12 units x 1 start novolog at discharge will recommend metformin 500 BID (14) DVT prophylaxis: SCDs. Chemical prophylaxis deferred due to thrombocytopenia. updated pt's by phone yesterday likely d/c tomorrow Admission and Anticipated Discharge Date Admission Date: February 12, 2021 Subjective patient feeling very good today excellent appetite cough improved no dyspnea o2 sats mid 90s in room air w/ walking no fevers/chills no cp or pleuritic cp Review of Systems Constitutional: no fever, no chills, no body aches, no fatigue, no weakness and no anorexia Ear, Nose, Mouth, Throat: no loss of taste/smell Respiratory: + cough; no dyspnea on exertion and no sputum production Cardiovascular: no chest pain Gastrointestinal: no abdominal pain, no nausea, no vomiting and no diarrhea/loose stools Physical Exam Constitutional: no acute distress and no altered mental status ENMT: external ear and nose normal, oropharynx normal Respiratory: Auscultation: + diminished lung sounds (bases); no crackles and no wheezes Cardiovascular: RRR, no murmur, no edema Heart Sounds: normal S1 and normal S2 Vessels: posterior tibial pulses present and dorsalis pedis pulses present; no JVD Extremities: no edema Gastrointestinal (Abdomen): normal bowel sounds, soft, nontender, no hepatosplenomegaly Skin: no rashes, warm and dry Psychiatric: A+Ox3, euthymic affect Results & Data Results & Data ([facility]) Vital Signs (Past 12 Hours) Vital Signs Temp Pulse Pulse Resp BP BP Pulse Ox 02/15/21 07:42 36.6 C 69 18 157/79 H 92 02/15/21 07:27 70 16 95 02/15/21 03:42 36.5 C 69 20 149/79 H 97 02/15/21 00:00 75 02/14/21 22:44 36.5 C 74 18 154/76 H 98 platelets now 90s ast/alt still elevated d-dimer down to ~5000 from 10,000 PG Care Time/CCT Total # of Minutes Spent Total Time Spent with Patient: Total time spent is greater than 50% in coordination of care (as documented) at patient's floor/unit and/or counseling patient: Coding Level of Care Code 84258 Subseq Hosp Care Lvl 3 Diagnoses Sepsis A41.9; R65.20; D65 Sepsis type: sepsis due to unspecified organism Sepsis acute organ dysfunction status: with acute organ dysfunction Severe sepsis acute organ dysfunction type: disseminated intravascular coagulopathy Severe sepsis shock status: without septic shock Anaplasmosis A77.49 COPD exacerbation J44.1 Pancytopenia D61.818 Thrombocytopenia D69.6 Transaminitis R74.01 Chronic, continuous use of opioids F11.90 Tobacco abuse Z72.0 Hypertension I10 Hyperlipemia E78.5 History of non-ST elevation myocardial infarction (NSTEMI) I25.2 SAUL (obstructive sleep apnea) G47.33 Diabetes mellitus type 2, uncontrolled E11.65 DVT prophylaxis Z29.9 (1) Sepsis Sepsis type: sepsis due to unspecified organism Sepsis acute organ dysfunction status: with acute organ dysfunction Severe sepsis acute organ dysfunction type: disseminated intravascular coagulopathy Severe sepsis shock status: without septic shock Qualified Code(s): A41.9 - Sepsis, unspecified organism; R65.20 - Severe sepsis without septic shock; D65 - Disseminated in travascular coagulation [defibrination syndrome]
[2021-02-15] MEDS ORDERED: ALBUT/IPRATROP 3MG/0.5MG NEB 3 ML VIAL NEB PRN (08:45)
[2021-02-15] MEDS: FLUTICASONE/VILANTEROL 100/25MCG 14 PUFFS/INHALER INH SCH (08:54)
[2021-02-15] MEDS: CYANOCOBALAMIN (VITAMIN B-12) 100 MCG TABLET PO SCH (08:54)
[2021-02-15] MEDS: DULoxetine HCL 60 MG CAP PO SCH (08:54)
[2021-02-15] MEDS: METOPROLOL TARTRATE 50 MG TAB PO SCH (08:54)
[2021-02-15] MEDS: GABAPENTIN 300 MG CAP PO SCH ×2 (08:54→13:22)
[2021-02-15] MEDS: ASPIRIN 325 MG ECTAB PO SCH (08:54)
[2021-02-15] MEDS: DOXYCYCLINE HYCLATE 100 MG CAP PO SCH (08:54)
[2021-02-15] MEDS: MoRPHine SULFATE CR 15 MG TABCR PO SCH (08:55)
[2021-02-15] MEDS: VALSARTAN 80 MG TAB PO SCH (08:55)
[2021-02-15] MEDS: UMECLIDINIUM BROMIDE 62.5MCG/BLISTER 7 PUFFS/INHALER INH SCH (08:55)
[2021-02-15] MEDS: INSULIN ASPART 100 UNITS/ML 3 ML PEN SC SCH ×2 (08:56→12:19)
[2021-02-15] MEDS: NICOTINE 21 MG/24 HR TDSY TD SCH (08:59)
[2021-02-15] MEDS ORDERED: predniSONE 10 MG TABLET PO SCH (09:00)
--- NOTE | 2021-02-15 13:21 | Discharge Summary ---
Date of Service date of admission - February 12, 2021 date of discharge - February 15, 2021 Admission HPI Per Admitting Provider Meet Lindsay is a 55-year-old male who presents to the ER with shortness of breath and fevers for 4 days. He reports having a tick bite 2 weeks ago that was on for possibly 1-2 days and got progressively more painful over the following week. He did not seek medical attention for this. He has COPD on 2L of oxygen as needed. Associated shortness of breath (although he notes he is always somewhat short of breath) getting progressively worse over the last 2 days with increased yellow productive sputum and decreased appetite. No known COVID-19 exposures. He denies any nausea, vomiting, constipation, diarrhea, loss of taste or smell, hemoptysis, hematemesis, bright red blood in stool, melena, abdominal or chest pain. H In the ER CXR showed no acute pathology. Wheezing noted on exam by ER provider and he was treated for COPD exacerbation with Dexamethasone and Duoneb with some mild improvement with his shortness of breath. Labs and history concerning for tick-borne illness and he was started on doxycycline 100mg IV. He was referred to medicine for admission and ongoing management of COPD exacerbation and ?anaplasmosis. Principal Diagnosis 1. anaplasmosis tick-borne infection 2. COPD exacerbation Discharge Exam Constitutional no acute distress and no altered mental status ENMT external ear and nose normal, oropharynx normal Respiratory normal respiratory effort, lungs clear to auscultation Auscultation: + diminished lung sounds (bases); no crackles and no wheezes Cardiovascular RRR, no murmur, no edema Heart Sounds: normal S1 and normal S2 Vessels: posterior tibial pulses present and dorsalis pedis pulses present; no JVD Extremities: no edema Gastrointestinal (Abdomen) normal bowel sounds, soft, nontender, no hepatosplenomegaly Skin no rashes, warm and dry Psychiatric A+Ox3, euthymic affect Discharge Data Allergies Allergy/AdvReac Type Severity Reaction Status Date / Time bee venom protein (honey bee) Allergy Severe PASSES OUT Verified 02/12/21 18:20 naproxen Allergy Intermediate SEVERE RASH Verified 02/12/21 18:20 tramadol AdvReac Intermediate GI SYMPTOMS Verified 02/12/21 18:20 Hospital Course (1) Sepsis: 2nd anaplasmosis. Resolved with appropriate antibiotics (Doxycycline). No evidence of pneumonia on imaging. Blood cx's neg. COVID negative. FLU and RSV negative. (2) Anaplasmosis: Anaplasmosis DNA test was POSITIVE. Received doxycycline 100mg BID while here, and will complete 10 more days of such at home. Thrombocytopenia, leukopenia, and elevated LFTs were consistent with anaplasmosis. Platelets improved prior to discharge as did his leukopenia. LFTs unchanged but suspect will improve next 1-2 weeks post-discharge. Lyme screen was positive for IgM, but Western blot for lyme was ultimately negative. Patient was given tick-borne infection prevention materials at discharge. (3) COPD exacerbation: Mild, requiring prednisone while hospitalized. He will complete a few more days of prednisone at home. He will continue his usual inhalers. (4) Diabetes mellitus type 2, uncontrolled: NEW diagnosis. Received DM education consultation. Did require basal-bolus insulin in setting of prednisone. However, at discharge, all insulin was stopped and he will take metformin 500mg once daily. He was given a glucometer and was prescribed all necessary supplies. (5) Pancytopenia: 2nd Anaplasmosis. WBC and platelets improved prior to discharge. Hb 11.9 at discharge. (6) Thrombocytopenia: 2nd Anaplasmosis as above. Lowest platelet count - 41, improving to 132 at discharge. (7) Transaminitis: 2nd anaplasmosis as above. COVID neg. Patient advised to avoid tylenol & alcohol until LFTs normalize. Also advised to HOLD his lipitor until LFTs are normal. He will need repeat LFTs within about a week post-discharge. (8) Chronic, continuous use of opioids: Chronic neck and back pain at baseline. Continue his chronic opiate regimen with morphine 50 mg extended release twice daily and oxycodone 15 mg every 6 hourly as needed. Continue his usual duloxetine and gabapentin for back pain as well. (9) Tobacco abuse: Advised cessation Nicoderm patch 21mg/day employed while here (10) Hypertension: Continue metoprolol tartrate 50mg PO BID and valsartan 160mg PO daily. Uncontrolled during the stay - suspect due to steroids. (11) Hyperlipemia: HOLD atorvastatin due to high LFTs from anaplasmosis. (12) History of non-ST elevation myocardial infarction (NSTEMI): Continue aspirin, metoprolol, valsartan. Lipitor on hold. no ACS symptoms while here. (13) SAUL (obstructive sleep apnea): CPAP HS Total Time Total Time Spent Total Time Spent (In Minutes): 45 Total Time Includes: Examination of the Patient, Discharge Planning and Medication Reconciliation Discharge Plan Discharge Items Patient Disposition: Home - Self-Care Reason For Visit: FEVER, ILLNESS, DIFFICULTY BREATHING Discharge Diagnosis: 1. fever/illness due to tick-borne infection called "Anaplasmosis" - improved/resolving 2. difficulty breathing - due to mild COPD exacerbation - resolved 3. low platelets - due to #1 - improving; repeat CBC needed at time of follow- up appointment 4. abnormal liver function tests - due to #1 - repeat liver tests needed at time of follow-up 5. elevated blood sugars due to type 2 diabetes Activity: As commented below Activity Comment: gradually increase your activities over the next 5 days Non-emergency contact: Primary Care Provider Call non-emergency contact if: you have any medication questions, your symptoms worsen and you have a fever Follow-up/Referrals: Tavo Zhao MD [Primary Care Provider] - (see Dr Zhao within 1 week ) Diet: Carb Consistent or DM2 Addtl Attending Provider Instructions: Mr Lindsay, You were admitted for a severe febrile illness. Your COVID testing was negative. Given your recent tick bites, the low platelets, abnormal liver tests, and your symptoms it seemed that you had tick-borne disease at time of admission. We immediately placed you on doxycycline which is the antibiotic of choice for treating various tick-borne illnesses. Your ANAPLASMOSIS test ultimately came back POSITIVE confirming the diagnosis. Anaplasmosis is a type of tick illness that is transmitted by the same type of tick that transmits Lyme disease. Anaplasmosis is completely curable with a 14 day course of doxycycline antibiotic. All of your blood work abnormalities will normalize over the next 1-2 weeks. Recommendations - 1. take doxycycline 100mg twice daily for 10 days more, first dose TONIGHT. * this antibiotic can cause heartburn * it can also cause a rash if you go out in the sun; for the next 2 weeks use sunscreen liberally and cover up 2. HOLD your lipitor (Atorvastatin) cholesterol medication until your liver tests are repeated by Dr Zhao. 3. DO NOT drink alcohol or use tylenol [id number] until we know your liver tests are back to normal. 4. please quit smoking if possible 5. prednisone x 2 more days starting tomorrow; this is for your breathing 6. take metformin xr 500mg once daily with a meal; this is for your diabetes * stomach upset and loose stool are common side effects from this medication 7. check your blood sugars once daily as directed by the staff educator. Write these numbers down in a notebook and let Dr Zhao look at them with you. 8. always do a "tick check" when you have been working outside. Let your examine your skin from head to toe for ticks. You can get reinfected with anaplasmosis and other tick illnesses. Follow-up - see Dr Zhao within 1 week [facility] to [facility] if - * you develop recurrent fevers over 100.5 degrees * you develop severe diarrhea * you have worsening shortness of breath * any other concerns Continue to feel better! -Dr Lang Pending Studies at Discharge: Yes Studies:: lyme disease testing Stand-Alone Forms: My [facility], Smoking Cessation Medications and DC Order Prescriptions: New doxycycline hyclate 100 mg Capsule 100 mg PO BID 10 Days Qty: 20 RF: 0 prednisone 10 mg tablet 10 mg PO DIRECTED Qty: 3 RF: 0 (DME) OneTouch Verio test strips Strip See Rx Instructions .ROUTE .MEDSUPPLY Qty: 100 RF: 1 (DME) lancets [OneTouch Delica Lancets] 33 gauge misc See Rx Instructions .ROUTE .MEDSUPPLY Qty: 100 RF: 1 metformin 500 mg tablet extended release 24hr 500 mg PO DAILY Qty: 30 RF: 2 Continued ipratropium-albuterol 0.5 mg-3 mg(2.5 mg base)/3 mL solution for nebulization 3 ml Inhalation QID PRN (Reason: Shortness Of Breath) Qty: 180 RF: 3 furosemide [Lasix] 40 mg tablet 40 mg PO DAILY PRN (Reason: weight gain) Qty: 30 RF: 5 cyanocobalamin (vitamin B-12) [Vitamin B-12] 100 mcg tablet 100 mcg PO QAM Qty: 90 RF: 3 metoprolol tartrate 50 mg tablet 50 mg PO BID Qty: 180 RF: 3 gabapentin 300 mg capsule 900 mg PO TID Qty: 270 RF: 5 valsartan 160 mg tablet 160 mg PO QAM Qty: 90 RF: 3 Breo Ellipta 100-25 mcg/dose blister with device 1 inh inhalation BID Qty: 60 RF: 5 morphine 15 mg tablet extended release 15 mg PO Q12H Qty: 60 RF: 0 oxycodone 15 mg tablet 15 mg PO Q6H Qty: 90 RF: 0 nitroglycerin 0.4 mg tablet, sublingual 0.4 mg sublingual ONCE PRN (Reason: chest pain) Qty: 20 RF: 3 aspirin 325 mg tablet 325 mg PO QAM RF: 0 docusate sodium 100 mg capsule 100 mg PO BID PRN (Reason: Constipation) RF: 0 epinephrine [EpiPen] 0.3 mg/0.3 mL Auto-Injector 0.3 mg IM UD PRN (Reason: Allergic Reaction) RF: 0 albuterol sulfate 90 mcg/actuation Hfa Aerosol Inhaler 2 puff INHALATION Q4H PRN (Reason: Wheezing) RF: 0 duloxetine 60 mg capsule,delayed release(DR/EC) 60 mg PO QAM RF: 0 Incruse Ellipta 62.5 mcg/actuation blister with device 1 inh inhalation QAM RF: 0 Discontinued atorvastatin 80 mg tablet 80 mg PO HS Qty: 90 RF: 3 Discharge Orders: Discharge Order (Routine); Ordered 02/15/21 Ordered By: Nathaniel Martines/Other Patient Handouts: ED Tick Facts Admission Data Admit Date/Time: 02/12/21 18:35 Attending Provider: Nathaniel Lang Admit Provider: Nathaniel Schulte Primary Care Provider: Tavo Zhao Other Providers: Nathaniel Schulte Other Interventions: Discharge Summary Assessment (RN) Last Done: 02/15/21 14:05 Coding Level of Care Code D/C Day Management >30 mins Diagnoses Sepsis A41.9; R65.20; D65 Sepsis acute organ dysfunction status: with acute organ dysfunction Sepsis type: sepsis due to unspecified organism Severe sepsis acute organ dysfunction type: disseminated intravascular coagulopathy Severe sepsis shock status: without septic shock Anaplasmosis A77.49 COPD exacerbation J44.1 Diabetes mellitus type 2, uncontrolled E11.65 Pancytopenia D61.818 Thrombocytopenia D69.6 Transaminitis R74.01 Chronic, continuous use of opioids F11.90 Tobacco abuse Z72.0 Hypertension I10 Hyperlipemia E78.5 History of non-ST elevation myocardial infarction (NSTEMI) I25.2 SAUL (obstructive sleep apnea) G47.33
[2021-02-15 20:26] LABS: 18KDIGG Band NON-REACTIVE; 23KDIGG Band NON-REACTIVE; 23KDIGM Band REACTIVE; 28KDIGG Band NON-REACTIVE; 30KDIGG Band NON-REACTIVE; 39KDIGG Band NON-REACTIVE; 39KDIGM Band NON-REACTIVE; 41KDIGG Band NON-REACTIVE; 41KDIGM Band NON-REACTIVE; 45KDIGG Band NON-REACTIVE; 58KDIGG Band NON-REACTIVE; 66KDIGG Band NON-REACTIVE; 93KDIGG Band NON-REACTIVE; Lyme Antibodies, WB IgG NEGATIVE (NEGATIVE); Lyme Antibodies, WB IgM NEGATIVE (NEGATIVE)
== END 2021-02-15 14:45 | disposition home or self-care (01) | DRG 872 ==
LOC: ED 14:38 → SUATTDRO 18:35 → 2N 18:35
DX: Z88.6 Allergy status to analgesic agent; G47.33 Obstructive sleep apnea (adult) (pediatric); I25.2 Old myocardial infarction; Z79.82 Long term (current) use of aspirin; F17.200 Nicotine dependence, unspecified, uncomplicated; J44.1 Chronic obstructive pulmonary disease with (acute) exacerbation; Z79.899 Other long term (current) drug therapy; Z99.81 Dependence on supplemental oxygen; A41.9 Sepsis, unspecified organism; J96.11 Chronic respiratory failure with hypoxia; R74.01 Elevation of levels of liver transaminase levels; G89.29 Other chronic pain; Z79.891 Long term (current) use of opiate analgesic; A77.49 Other ehrlichiosis; I10 Essential (primary) hypertension; E11.65 Type 2 diabetes mellitus with hyperglycemia; E78.5 Hyperlipidemia, unspecified; D61.818 Other pancytopenia; E53.8 Deficiency of other specified B group vitamins; Z91.030 Bee allergy status; Z79.51 Long term (current) use of inhaled steroids; M54.2 Cervicalgia

== ENCOUNTER 2022-02-21 15:32 | Inpatient (IN) ==
[2022-02-21] MEDS ORDERED: SODIUM CHLORIDE 0.9% 1000ML 1,000 ML IV ONE ×3 (15:53→17:58)
--- NOTE | 2022-02-21 16:06 | Emergency Department Note ---
Impression & Plan Pneumonia, COVID-19, Acute hypotension, DOMENICA (acute kidney injury) ED Provider Note NAME: LUCIAN HAMPTON AGE: 56 SEX: M : 1965 ARRIVES VIA: Ambulance INFORMANT: Patient, EMS ED PROVIDER(S): Phil Chaudhry DO CHIEF COMPLAINT: Low blood pressure HPI: The patient is a 56-year-old male who has a history of COPD who presented to the emergency department for an evaluation of low blood pressure. The patient himself offers no complaints. He was seen in our facility 6 days ago and was following up with his primary care physician for reevaluation after being in the emergency department. He was noted to have low blood pressure. He also appeared to be somnolent and falling asleep easily. 911 was called and the patient was sent to the emergency department via ambulance. Patient denies having any trauma. He denies having any chest pain or difficulty breathing. He denies having any abdominal pain. He states he did have a fever. He was seen in our facility recently and diagnosed with dehydration and lightheadedness. He was treated with IV fluids and was feeling much better. Patient states has been compliant with his outpatient medications. He states he still gets very lightheaded when he goes to stand up. ROS: See above HPI for pertinent positives & negatives. A total of 10 systems reviewed and were otherwise negative. PAST MEDICAL HISTORY: See Below PAST SURGICAL HISTORY: See Below FAMILY HISTORY: See Below SOCIAL HISTORY: See Below HOME MEDICATIONS: See Below ALLERGIES: See Below VITALS: See Below PHYSICAL EXAMINATION: GENERAL: The patient is awake and alert. He is somewhat somnolent appearing but overall comfortable. EYES: The conjunctivae are clear. The pupils are round and reactive. EARS, NOSE, MOUTH AND THROAT: The nose is without any evidence of any deformity. NECK: The neck is nontender and supple. RESPIRATORY: Diminished breath sounds are noted bilaterally. There is no tachypnea or conversational dyspnea. CARDIOVASCULAR: Regular rate and rhythm noted there no murmurs rubs or gallops normal S1 normal S2. GASTROINTESTINAL: The abdomen is soft. Abdomen is nontender. MUSCULOSKELETAL/EXTREMITIES: There is no evidence of gross deformity full range of motion is noted in the hips and shoulders. SKIN: There is no obvious evidence of any rash. There are no petechiae, pallor or cyanosis noted. NEUROLOGIC: Patient is awake and oriented x3 strength is symmetric patellar reflexes are 2+ bilaterally MEDICAL DECISION MAKING: The patient is a 56-year-old male who presented to the emergency department for an evaluation of low blood pressure. The patient was slow to respond to questions. She does take multiple opiate medications. The patient was treated with IV fluids and IV antibiotics in the emergency department. He was reevaluated multiple times. He was treated with IV Narcan one-point. His blood pressure as well as his mental status certainly improved. I discussed the patient's condition with the on-call [facility] hospitalist. They have agreed to evaluate the patient in the emergency department for further management and disposition. Triage Nursing notes reviewed. Prior medical records reviewed Vital Signs: reviewed and remarkable for no significant abnormalities Differential diagnosis: Infection, dehydration, metabolic abnormality, hypo/hyperglycemia, electrolyte disturbance, anemia, hypoxia, cardiac sources, intracerebral event, toxicologic, neurologic, as well as other pathologies. ER treatment provided: See below Diagnostics interpreted by me: ECG: EKG was obtained in the emergency department. My interpretation is normal sinus rhythm at 66 bpm. There was no ectopy. There was no acute ST segment abnormalities noted. This was compared to a tracing from February 15, 2022. No changes were noted Cardiac Monitoring: An order was placed for continuous cardiac monitoring. The monitor shows a rate of 77 bpm with sinus rhythm. Laboratory studies: As stated above and show below. Imaging studies: See below Consultation(s): I discussed this case with Dr. Rutledge [facility]. Past Med/Surg History Medical History Abnormal CT scan, chest Anaphylactic reaction Anemia Anxiety disorder Arthritis of right shoulder region Back pain Bilateral carpal tunnel syndrome Chest pain Chronic bronchitis Chronic pain Chronic pain syndrome COPD (chronic obstructive pulmonary disease) COPD exacerbation COPD, mild Diastolic CHF, acute on chronic Dyshidrotic eczema Excessive daytime sleepiness Gait disturbance GERD (gastroesophageal reflux disease) H/O supraventricular tachycardia History of non-ST elevation myocardial infarction (NSTEMI) Hypercholesterolemia Hyperlipemia Hypertension Insomnia Internal hemorrhoids Lumbar radiculopathy Male erectile disorder of organic origin Mitral valve disorder MVP (mitral valve prolapse) Neural foraminal stenosis of cervical spine Nicotine dependence NSTEMI (non-ST elevated myocardial infarction) SAUL (obstructive sleep apnea) Pancytopenia Polyneuropathy Seborrheic keratosis Secondary pulmonary hypertension Tobacco abuse Transaminitis Type II diabetes mellitus Ulnar neuropathy at elbow Vitamin B12 deficiency Surgical History H/O cardiac catheterization History of cholecystectomy Hx of appendectomy Hx of arthroscopic knee surgery S/P appy S/P cervical spinal fusion S/P tonsillectomy and adenoidectomy Family History Father Hypertension Brother Hypertension Aunt Breast cancer Other Allergies Cancer Diabetes Heart disease No significant family history Denies family history of Tuberculosis Ovarian cancer Prostate cancer Emphysema, unspecified Colorectal cancer Lung disease Asthma Social History Smoking Status: Current every day smoker Tobacco Type: Cigarettes packs per day: 1; Years Smoked: 25; Cigarettes Per Day: 20; Second Hand Exposure: Yes; Hx Alcohol Use: No Hx Substance Use: No Preferred Language: [place] Communication Ability: Effective Visual Impairment: No Limitations Car Groomer Required: No Beliefs That Will Affect Care: None marital status: Current Living Situation: Spouse current occupational status: disabled Feels Safe at Home: Yes Childhood Exposure to Second-Hand Smoke: Yes caffeine: Yes Dental Care, Regularly: No Physical Activity Frequency: Does not Exercise Seatbelt Use: always Sunscreen Use: No Assistive Devices: Glasses, Oxygen - at Night and Oxygen - Continuous Allergies Allergies Allergy/AdvReac Type Severity Reaction Status Date / Time bee venom protein (honey bee) Allergy Severe PASSES OUT Verified 02/21/22 16:16 naproxen Allergy Intermediate SEVERE RASH Verified 02/21/22 16:16 tramadol AdvReac Intermediate GI SYMPTOMS Verified 02/21/22 16:16 Home Meds Home Medications Medication Instructions Recorded Confirmed albuterol sulfate 90 mcg/actuation 2 puff INHALATION Q4H PRN 01/02/19 02/21/22 aerosol inhaler aspirin 325 mg tablet 325 mg PO QAM tab 07/02/19 02/21/22 docusate sodium 100 mg capsule 100 mg PO BID PRN 07/02/19 02/21/22 epinephrine 0.3 mg/0.3 mL 0.3 mg IM DIRECTED PRN 02/21/22 02/21/22 injection, auto-injector (EpiPen) furosemide 40 mg tablet 40 mg PO DAILY PRN 02/21/22 02/21/22 Previous Rx's Medication Instructions Recorded nitroglycerin 0.4 mg sublingual 0.4 mg SUBLINGUAL ONCE PRN #20 tab 01/11/20 tablet ipratropium 0.5 mg-albuterol 3 mg 3 ml INHALATION QID PRN #180 ml 05/24/20 (2.5 mg base)/3 mL nebulization soln metoprolol tartrate 50 mg tablet 50 mg PO BID #180 tab 01/23/21 blood sugar diagnostic (OneTouch #100 ea 02/15/21 Verio test strips) lancets 33 gauge (OneTouch Delica #100 ea 02/15/21 Lancets) metformin 500 mg tablet,extended 1,000 mg PO DAILY #180 tab 04/25/21 release 24hr duloxetine 60 mg capsule,delayed 60 mg PO QAM #90 cap 07/03/21 release fluticasone furoate 100 1 inh INHALATION BID #60 ea 07/28/21 mcg-vilanterol 25 mcg/dose inhalation powder (Breo Ellipta) gabapentin 300 mg capsule 900 mg PO TID #270 cap 10/05/21 umeclidinium 62.5 mcg/actuation 1 inh INHALATION QAM #30 ea 10/05/21 blister powder for inhalation (Incruse Ellipta) cyanocobalamin (vitamin B-12) 100 100 mcg PO QAM #90 tab 12/07/21 mcg tablet (Vitamin B-12) tamsulosin 0.4 mg capsule 0.4 mg PO DAILY #30 cap 12/07/21 valsartan 160 mg tablet 160 mg PO QAM #90 tab 12/26/21 morphine 15 mg tablet,extended 15 mg PO Q12H #60 tab 02/16/22 release oxycodone 15 mg tablet 15 mg PO Q6H #90 tab 02/16/22 atorvastatin 80 mg tablet 80 mg PO HS #90 tab 02/20/22 Results & Data (ED) Vital Signs Vital Signs - 24 hr 02/21/22 15:43 02/21/22 16:05 02/21/22 17:00 Temperature 37 C 37 C Temperature Source Oral Oral Pulse Rate 65 64 Pulse Rate [Left Finger] 65 64 74 Pulse Rhythm Regular Regular Pulse Rhythm [Left Finger] Regular Regular Regular Pulse Strength Normal Pulse Strength [Left Finger] Normal Normal Normal Respiratory Rate 12 14 17 Respiratory Effort / Characteristics Non-Labored Spontaneous Non-Labored Spontaneous Non-Labored Spontaneous Respiratory Depth Normal Normal Normal Respiratory Pattern Regular Blood Pressure 80/57 L Blood Pressure [Right Arm] 80/57 L 82/47 L 85/56 L Blood Pressure Mean 64 Blood Pressure Mean [Right Arm] 64 58 65 Blood Pressure Position Lying Blood Pressure Position [Right Arm] Lying Lying Lying Pulse Oximetry 96 96 96 Oxygen Delivery Method Nasal Cannula Nasal Cannula Nasal Cannula Oxygen Flow Rate 2 2 2 Sepsis Recent Fever Within 48 Hours No Sepsis New/Unexplained Change in Mental Status No Sepsis Action Taken by Nursing No Action Required 02/21/22 18:00 02/21/22 18:15 02/21/22 18:30 Temperature Temperature Source Pulse Rate Pulse Rate [Left Finger] 64 64 71 Pulse Rhythm Pulse Rhythm [Left Finger] Regular Regular Regular Pulse Strength Pulse Strength [Left Finger] Normal Normal Normal Respiratory Rate 19 17 17 Respiratory Effort / Characteristics Non-Labored Spontaneous Non-Labored Spontaneous Non-Labored Spontaneous Respiratory Depth Normal Normal Normal Respiratory Pattern Blood Pressure Blood Pressure [Right Arm] 99/71 L 99/71 L 125/84 Blood Pressure Mean Blood Pressure Mean [Right Arm] 80 80 97 Blood Pressure Position Blood Pressure Position [Right Arm] Lying Lying Lying Pulse Oximetry 97 97 97 Oxygen Delivery Method Nasal Cannula Nasal Cannula Nasal Cannula Oxygen Flow Rate 2 2 2 Sepsis Recent Fever Within 48 Hours Sepsis New/Unexplained Change in Mental Status Sepsis Action Taken by Nursing 02/21/22 19:38 02/21/22 19:41 Temperature Temperature Source Pulse Rate Pulse Rate [Left Finger] 72 Pulse Rhythm Pulse Rhythm [Left Finger] Pulse Strength Pulse Strength [Left Finger] Respiratory Rate 18 Respiratory Effort / Characteristics Non-Labored Spontaneous Respiratory Depth Normal Respiratory Pattern Blood Pressure Blood Pressure [Right Arm] 136/82 Blood Pressure Mean Blood Pressure Mean [Right Arm] 100 Blood Pressure Position Blood Pressure Position [Right Arm] Lying Pulse Oximetry 98 98 Oxygen Delivery Method Nasal Cannula Nasal Cannula Oxygen Flow Rate 2 2 Sepsis Recent Fever Within 48 Hours Sepsis New/Unexplained Change in Mental Status Sepsis Action Taken by Halfway Medications Current Medication List: was personally reviewed by me Laboratory Data Attestation: I reviewed the patient's lab results. Result diagrams: 02/21/22 15:45 02/21/22 15:45 Lab Results 0502/21/22 02/21/22 Range/Units 15:45 15:45 15:45 WBC 8.08 (4.8-10.8) K/uL RBC 3.92 L (4.7-6.1) M/uL Hgb 12.4 L (14.0-18.0) g/dL Hct 37.2 L (42-52) % MCV 94.9 (80-100) fL MCH 31.6 (25-34) pg MCHC 33.3 (32-36) g/dL RDW Std Deviation 46.9 H (36.4-46.3) fL RDW Coeff of Liliya 13.5 (11.5-14.5) % Plt Count 209 (130-400) K/uL MPV 9.9 (7.4-10.4) fL Immature Gran % (Auto) 0.2 % Neut % (Auto) 68.9 % Lymph % (Auto) 17.3 % Jefferson % (Auto) 9.3 % Eos % (Auto) 4.1 % Baso % (Auto) 0.2 % Neut # (Auto) 5.56 (1.4-6.5) K/uL Lymph # (Auto) 1.40 (1.2-3.4) K/uL Jefferson # (Auto) 0.75 H (0.11-0.59) K/uL Eos # (Auto) 0.33 (0-0.5) K/uL Baso # (Auto) 0.02 (0-0.2) K/uL Immature Gran # (Auto) 0.02 (0.00-0.02) K/uL ESR 18 (0-20) mm/hr PT 10.1 (9.0-12.0) Seconds INR 0.9 (0.9-1.1) APTT 34.5 H (21.0-31.0) Seconds PTT Ratio 1.3 VBG pH (7.36-7.41) VBG pCO2 (38-50) mmHg VBG pO2 mmHg VBG HCO3 mmol/L VBG O2 Saturation % VBG Base Excess mEq/L Barometric Pressure mm/Hg Sodium (136-145) mmol/L Potassium (3.5-5.1) mmol/L Chloride (98-107) mmol/L Carbon Dioxide (21-32) mmol/L Anion Gap (3-11) BUN (6-23) mg/dl Creatinine (0.6-1.4) mg/dl Est Cr Clr Drug Dosing ml/min Est GFR ( Amer) ml/min Est GFR (Non-Af Amer) ml/min BUN/Creatinine Ratio (10-20) Glucose (70-99(Fasting)) mg/dl POC Glucose (70-99) mg/dl Lactate (0.4-2.0) mmol/L Calcium (8.5-10.1) mg/dl Magnesium (1.7-2.4) mg/dl Total Bilirubin (0.2-1.0) mg/dl AST (13-39) U/L ALT (7-52) U/L Alkaline Phosphatase (34-104) U/L Troponin I High Sens (0-20) pg/ml C-Reactive Protein (0-0.5) mg/dl Total Protein (6.0-8.3) gm/dl Albumin (3.4-5.0) gm/dl Globulin (2.5-4.0) gm/dl Albumin/Globulin Ratio (0.9-2) Procalcitonin (0-0.5) ng/ml Random Cortisol mcg/dl Anaplasma Smear Lyme Disease IgG Ab (Negative) Lyme Disease IgM Ab (Negative) SARS-CoV-2 (PCR) (Negative) Influenza Type A (PCR) (Neg) Influenza Type B (PCR) (Neg) RSV (RT-PCR) (Neg) 02/21/22 02/21/22 02/21/22 Range/Units 15:45 15:45 15:45 WBC (4.8-10.8) K/uL RBC (4.7-6.1) M/uL Hgb (14.0-18.0) g/dL Hct (42-52) % MCV (80-100) fL MCH (25-34) pg MCHC (32-36) g/dL RDW Std Deviation (36.4-46.3) fL RDW Coeff of Liliya (11.5-14.5) % Plt Count (130-400) K/uL MPV (7.4-10.4) fL Immature Gran % (Auto) % Neut % (Auto) % Lymph % (Auto) % Jefferson % (Auto) % Eos % (Auto) % Baso % (Auto) % Neut # (Auto) (1.4-6.5) K/uL Lymph # (Auto) (1.2-3.4) K/uL Jefferson # (Auto) (0.11-0.59) K/uL Eos # (Auto) (0-0.5) K/uL Baso # (Auto) (0-0.2) K/uL Immature Gran # (Auto) (0.00-0.02) K/uL ESR (0-20) mm/hr PT (9.0-12.0) Seconds INR (0.9-1.1) APTT (21.0-31.0) Seconds PTT Ratio VBG pH (7.36-7.41) VBG pCO2 (38-50) mmHg VBG pO2 mmHg VBG HCO3 mmol/L VBG O2 Saturation % VBG Base Excess mEq/L Barometric Pressure mm/Hg Sodium 132 L (136-145) mmol/L Potassium 3.6 (3.5-5.1) mmol/L Chloride 100 (98-107) mmol/L Carbon Dioxide 24 (21-32) mmol/L Anion Gap 8 (3-11) BUN 19 (6-23) mg/dl Creatinine 1.43 H (0.6-1.4) mg/dl Est Cr Clr Drug Dosing 63.3 ml/min Est GFR ( Amer) 62.1 ml/min Est GFR (Non-Af Amer) 53.6 ml/min BUN/Creatinine Ratio 13.3 (10-20) Glucose 105 H (70-99(Fasting)) mg/dl POC Glucose (70-99) mg/dl Lactate (0.4-2.0) mmol/L Calcium 8.3 L (8.5-10.1) mg/dl Magnesium 2.0 (1.7-2.4) mg/dl Total Bilirubin 0.3 (0.2-1.0) mg/dl AST 16 (13-39) U/L ALT 15 (7-52) U/L Alkaline Phosphatase 87 (34-104) U/L Troponin I High Sens 3.8 (0-20) pg/ml C-Reactive Protein 5.33 H (0-0.5) mg/dl Total Protein 6.4 (6.0-8.3) gm/dl Albumin 3.9 (3.4-5.0) gm/dl Globulin 2.5 (2.5-4.0) gm/dl Albumin/Globulin Ratio 1.6 (0.9-2) Procalcitonin < 0.05 (0-0.5) ng/ml Random Cortisol 11.29 mcg/dl Anaplasma Smear Lyme Disease IgG Ab (Negative) Lyme Disease IgM Ab (Negative) SARS-CoV-2 (PCR) (Negative) Influenza Type A (PCR) (Neg) Influenza Type B (PCR) (Neg) RSV (RT-PCR) (Neg) 02/21/22 02/21/22 02/21/22 Range/Units 16:01 16:20 16:20 WBC (4.8-10.8) K/uL RBC (4.7-6.1) M/uL Hgb (14.0-18.0) g/dL Hct (42-52) % MCV (80-100) fL MCH (25-34) pg MCHC (32-36) g/dL RDW Std Deviation (36.4-46.3) fL RDW Coeff of Liliya (11.5-14.5) % Plt Count (130-400) K/uL MPV (7.4-10.4) fL Immature Gran % (Auto) % Neut % (Auto) % Lymph % (Auto) % Jefferson % (Auto) % Eos % (Auto) % Baso % (Auto) % Neut # (Auto) (1.4-6.5) K/uL Lymph # (Auto) (1.2-3.4) K/uL Jefferson # (Auto) (0.11-0.59) K/uL Eos # (Auto) (0-0.5) K/uL Baso # (Auto) (0-0.2) K/uL Immature Gran # (Auto) (0.00-0.02) K/uL ESR (0-20) mm/hr PT (9.0-12.0) Seconds INR (0.9-1.1) APTT (21.0-31.0) Seconds PTT Ratio VBG pH 7.26 L (7.36-7.41) VBG pCO2 60 H (38-50) mmHg VBG pO2 30 mmHg VBG HCO3 26 mmol/L VBG O2 Saturation < 60.0 % VBG Base Excess -1.5 mEq/L Barometric Pressure 737.4 mm/Hg Sodium (136-145) mmol/L Potassium (3.5-5.1) mmol/L Chloride (98-107) mmol/L Carbon Dioxide (21-32) mmol/L Anion Gap (3-11) BUN (6-23) mg/dl Creatinine (0.6-1.4) mg/dl Est Cr Clr Drug Dosing ml/min Est GFR ( Amer) ml/min Est GFR (Non-Af Amer) ml/min BUN/Creatinine Ratio (10-20) Glucose (70-99(Fasting)) mg/dl POC Glucose 132 H (70-99) mg/dl Lactate 0.9 (0.4-2.0) mmol/L Calcium (8.5-10.1) mg/dl Magnesium (1.7-2.4) mg/dl Total Bilirubin (0.2-1.0) mg/dl AST (13-39) U/L ALT (7-52) U/L Alkaline Phosphatase (34-104) U/L Troponin I High Sens (0-20) pg/ml C-Reactive Protein (0-0.5) mg/dl Total Protein (6.0-8.3) gm/dl Albumin (3.4-5.0) gm/dl Globulin (2.5-4.0) gm/dl Albumin/Globulin Ratio (0.9-2) Procalcitonin (0-0.5) ng/ml Random Cortisol mcg/dl Anaplasma Smear Lyme Disease IgG Ab (Negative) Lyme Disease IgM Ab (Negative) SARS-CoV-2 (PCR) (Negative) Influenza Type A (PCR) (Neg) Influenza Type B (PCR) (Neg) RSV (RT-PCR) (Neg) 02/21/22 02/21/22 02/21/22 Range/Units 16:22 16:22 18:25 WBC (4.8-10.8) K/uL RBC (4.7-6.1) M/uL Hgb (14.0-18.0) g/dL Hct (42-52) % MCV (80-100) fL MCH (25-34) pg MCHC (32-36) g/dL RDW Std Deviation (36.4-46.3) fL RDW Coeff of Liliya (11.5-14.5) % Plt Count (130-400) K/uL MPV (7.4-10.4) fL Immature Gran % (Auto) % Neut % (Auto) % Lymph % (Auto) % Jefferson % (Auto) % Eos % (Auto) % Baso % (Auto) % Neut # (Auto) (1.4-6.5) K/uL Lymph # (Auto) (1.2-3.4) K/uL Jefferson # (Auto) (0.11-0.59) K/uL Eos # (Auto) (0-0.5) K/uL Baso # (Auto) (0-0.2) K/uL Immature Gran # (Auto) (0.00-0.02) K/uL ESR (0-20) mm/hr PT (9.0-12.0) Seconds INR (0.9-1.1) APTT (21.0-31.0) Seconds PTT Ratio VBG pH (7.36-7.41) VBG pCO2 (38-50) mmHg VBG pO2 mmHg VBG HCO3 mmol/L VBG O2 Saturation % VBG Base Excess mEq/L Barometric Pressure mm/Hg Sodium (136-145) mmol/L Potassium (3.5-5.1) mmol/L Chloride (98-107) mmol/L Carbon Dioxide (21-32) mmol/L Anion Gap (3-11) BUN (6-23) mg/dl Creatinine (0.6-1.4) mg/dl Est Cr Clr Drug Dosing ml/min Est GFR ( Amer) ml/min Est GFR (Non-Af Amer) ml/min BUN/Creatinine Ratio (10-20) Glucose (70-99(Fasting)) mg/dl POC Glucose (70-99) mg/dl Lactate (0.4-2.0) mmol/L Calcium (8.5-10.1) mg/dl Magnesium (1.7-2.4) mg/dl Total Bilirubin (0.2-1.0) mg/dl AST (13-39) U/L ALT (7-52) U/L Alkaline Phosphatase (34-104) U/L Troponin I High Sens (0-20) pg/ml C-Reactive Protein (0-0.5) mg/dl Total Protein (6.0-8.3) gm/dl Albumin (3.4-5.0) gm/dl Globulin (2.5-4.0) gm/dl Albumin/Globulin Ratio (0.9-2) Procalcitonin (0-0.5) ng/ml Random Cortisol mcg/dl Anaplasma Smear See Comment Lyme Disease IgG Ab Negative (Negative) Lyme Disease IgM Ab Equivocal A (Negative) SARS-CoV-2 (PCR) POSITIVE A* (Negative) Influenza Type A (PCR) Negative (Neg) Influenza Type B (PCR) Negative (Neg) RSV (RT-PCR) Negative (Neg) Administered Medications Discontinued Medications Sodium Chloride (Nss 1000ml) 1,000 mls @ 999 mls/hr IV .Q1H1M ONE Stop: 02/21/22 16:53 Last Infusion: 02/21/22 17:05 Dose: 0 mls/hr Documented by: [id number] Admin: 02/21/22 16:07 Dose: 999 mls/hr Documented by: [id number] Sodium Chloride (Nss 1000ml) 1,000 mls @ 999 mls/hr IV .Q1H1M ONE Stop: 02/21/22 18:10 Last Infusion: 02/21/22 18:22 Dose: 0 mls/hr Documented by: [id number] Admin: 02/21/22 17:14 Dose: 999 mls/hr Documented by: [id number] Ceftriaxone Sodium (Rocephin) 1,000 mg in 50 mls @ 100 mls/hr IV NOW STA Stop: 02/21/22 18:18 Last Infusion: 02/21/22 19:39 Dose: 0 mls/hr Documented by: [id number] Admin: 02/21/22 18:22 Dose: 100 mls/hr Documented by: [id number] Azithromycin 500 mg/ Dextrose 255 mls @ 127.5 mls/hr IV NOW STA Stop: 02/21/22 19:48 Last Admin: 02/21/22 19:36 Dose: 127.5 mls/hr Documented by: [id number] Sodium Chloride (Nss 1000ml) 1,000 mls @ 999 mls/hr IV .Q1H1M ONE Stop: 02/21/22 18:58 Last Admin: 02/21/22 18:23 Dose: 999 mls/hr Documented by: [id number] Ampicillin Sodium/Sulbactam Sodium 3,000 mg/ Sodium Chloride 108 mls @ 216 mls/hr IV Q6H [facility]; Protocol Stop: 02/23/22 19:29 Last Admin: 02/21/22 19:41 Dose: Not Given Documented by: [id number] Naloxone HCl (Naloxone Hcl 0.4 Mg/1 Ml Vial/Carp) 0.2 mg IV NOW STA Stop: 02/21/22 18:13 Last Admin: 02/21/22 18:22 Dose: 0.2 mg Documented by: [id number] Imaging Data Radiologist's Impression: Chest X-Ray 02/21/22 15:53 XR chest 1V portable HISTORY: 56 years-old Male SEPSIS acute sepsis COMPARISON: Chest radiograph 01/07/2022 TECHNIQUE: Portable AP view of the chest FINDINGS: Cardiac silhouette is enlarged. Pulmonary vascular congestion with nonspecific mid to lower lung zone predominant interstitial coarsening. There is no pneumothorax or large pleural effusion. The bones of the chest appear grossly intact. IMPRESSION: Cardiomegaly with pulmonary vascular congestion and nonspecific mid to lower lung zone predominant interstitial coarsening. Findings are suspicious for a nonspecific pneumonitis. Developing pulmonary edema could appear similarly . ACT 112: Negative or not required by law. The above report was generated using voice recognition software. It may contain grammatical, syntax or spelling errors. Electronically signed by: Ed Carbajal M.D. 02/21/2022 5:24 PM Discharge Plan Visit Data Chief Complaint: Hypotension ED Provider: Phil Chaudhry Discharge Problem: Pneumonia, COVID-19, Acute hypotension, DOMENICA (acute kidney injury) Patient Disposition: Admitted As Inpatient Discharge Instructions Interventions: ED Discharge Assessment Last Done: 02/21/22 20:57
[2022-02-21 16:15] LABS: Basophils # (auto) 0.02 K/uL (0-0.2); Basophils % (auto) 0.2 %; Eosinophils # (auto) 0.33 K/uL (0-0.5); Eosinophils % (auto) 4.1 %; Hematocrit (blood only) 37.2 % (42-52); Hemoglobin 12.4 g/dL (14.0-18.0); Immature Granulocytes # (auto) 0.02 K/uL (0.00-0.02); Immature Granulocytes % (auto) 0.2 %; Lymphocytes % (auto) 17.3 %; Mean Corpuscular Hemoglobin 31.6 pg (25-34); Mean Corpuscular Hgb Conc 33.3 g/dL (32-36); Mean Corpuscular Volume 94.9 fL (80-100); Mean Platelet Volume 9.9 fL (7.4-10.4); Monocytes # (auto) 0.75 K/uL (0.11-0.59); Monocytes % (auto) 9.3 %; Neutrophils # (auto) 5.56 K/uL (1.4-6.5); Neutrophils % (auto) 68.9 %; Platelet Count 209 K/uL (130-400); RDW Coefficient of Variation 13.5 % (11.5-14.5); RDW Standard Deviation 46.9 fL (36.4-46.3); Red Blood Count 3.92 M/uL (4.7-6.1); White Blood Count 8.08 K/uL (4.8-10.8)
[2022-02-21 16:23] LABS: INR 0.9 (0.9-1.1); Partial Thromboplastin Ratio 1.3; Partial Thromboplastin Time 34.5 Seconds (21.0-31.0); Prothrombin Time 10.1 Seconds (9.0-12.0)
[2022-02-21 16:33] LABS: Base Excess VBG -1.5 mEq/L; HCO3 VBG 26 mmol/L; PCO2 VBG 60 mmHg (38-50); PO2 VBG 30 mmHg; pH VBG 7.26 (7.36-7.41)
[2022-02-21 16:36] LABS: Albumin Globulin Ratio 1.6 (0.9-2); Albumin Level 3.9 gm/dl (3.4-5.0); BUN Creatinine Ratio 13.3 (10-20); Bilirubin,Total 0.3 mg/dl (0.2-1.0); C Reactive Protein 5.33 mg/dl (0-0.5); Calcium 8.3 mg/dl (8.5-10.1); Creatinine Clr Calc Pharmacy 63.3 ml/min; Est GFR (African American) 62.1 ml/min; Est GFR (Non-African American) 53.6 ml/min; Globulin 2.5 gm/dl (2.5-4.0); Potassium 3.6 mmol/L (3.5-5.1); Total Protein 6.4 gm/dl (6.0-8.3); Troponin I High Sensitivity 3.8 pg/ml (0-20)
--- NOTE | 2022-02-21 17:26 | XRay Report ---
XR chest 1V portable HISTORY: 56 years-old Male SEPSIS acute sepsis COMPARISON: Chest radiograph 01/07/2022 TECHNIQUE: Portable AP view of the chest FINDINGS: Cardiac silhouette is enlarged. Pulmonary vascular congestion with nonspecific mid to lower lung zone predominant interstitial coarsening. There is no pneumothorax or large pleural effusion. The bones o f the chest appear grossly intact. IMPRESSION: Cardiomegaly with pulmonary vascular congestion and nonspecific mid to lower lung zone pr edominant interstitial coarsening. Findings are suspicious for a nonspecific pneumonitis. Developing pulmonary edema could appear similarly. ACT 112: Negative or not required by law. The above report was generated using voice recognition software. It may contain grammatical, syntax o r spelling errors. Electronically signed by: Ed Carbajal M.D. 02/21/2022 5:24 PM
[2022-02-21] MEDS ORDERED: AZITHROMYCIN 500 MG in DEXTROSE 5% 250 ML IV STA (17:49)
[2022-02-21] MEDS ORDERED: cefTRIAXone SODIUM 1,000 MG/50 ML BAG IV STA (17:49)
[2022-02-21] MEDS ORDERED: NALOXONE HCL 0.4 MG/1 ML VIAL/CARP IV STA (18:12)
[2022-02-21 18:17] LABS: Oxygen Saturation VBG < 60.0 %
--- NOTE | 2022-02-21 18:17 | History & Physical Report ---
Date of Service February 21, 2022 Assessment & Plan (1) Subjective fever: Plan: Fever, Altered mental status,? Metabolic encephalopathy versus narcosis On admission no leukocytosis, hemoglobin 12.4, INR 0.9, it would from baseline of approximately 1.01.2-1.43, glucose 105, lactate is normal, CRP elevated to 5.33, procalcitonin is normal, random cortisol 11.29/not suppressed. Chest x- ray does show pulmonary vascular congestion and nonspecific mid to lower lung interstitial coarsening? Pneumonitis versus developing pulmonary edema. VBG is pending. EKG normal sinus rhythm, QTC [address] changes or T wave inversions Patient is on morphine 15 mg p.o. every 12 hours SECOND HAND,? Narcosis, received dose of Narcan in ER Concern for narcosis/sedation with potential aspiration event. Treated with azithromycin/Rocephin in ER Does report fevers up to 102 at home. No GI or urinary complaints. Does have some wheezing, no other pulmonary symptoms. 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 Lyme/anaplasmosis pending. Will treat empirically with Unasyn with Doxy Despite 2 L fluid and empiric antibiotics patient did remain hypotensive in the 80s. Narcan was administered in the ER with immediate improvement in blood pressure to 120/80's. Morphine held, resume tomorrow at dose reduction if breathing/blood pressure remained stable and cognition at baseline Chronic hypoxic respiratory failure Baseline oxygen requirements 2L. 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 every morning Hypotension As above improved following Narcan Hold valsartan 160 mg p.o. every morning Continue metoprolol 50 mg p.o. twice daily tartrate Hold Lasix 40 mg p.o. daily Resume valsartan/Lasix if blood pressure remains stable tomorrow Hyperlipidemia Continue atorvastatin 80 mg p.o. nightly CAD. Denies hx stends/MT. - ASA. On full dose aspir following risk benefits discussion with PCP given strong family history Statin as previously noted Metoprolol as previously noted ARBas previously noted Type 2 diabetes mellitus Hold SECOND HAND metformin Glucose checks AC/at bedtime Weight-based basal/bolus insulin - Last A1c 6.3% DVT PPx Lovenox CODE STATUS Full Diet T2DM (2) Hypotension: (3) Type II diabetes mellitus: (4) CAD (coronary artery disease): (5) COPD (chronic obstructive pulmonary disease): (6) Anxiety disorder: (7) Hypercholesterolemia: (8) Nicotine dependence: (9) MVP (mitral valve prolapse): History of Present Illness Primary Care Provider: Mansoor Zhao MD sodium 132, potassium 3.6, creatinineDenmao Davis is a 56-year-old male with a past medical history of type 2 diabetes mellitus, renal insufficiency, diastolic CHF, COPD, tobacco abuse, chronic pain on narcotics, GERD, mitral valve prolapse, and lumbar radiculopathy who presented altered and hypotensive. In the ER he received 2 L of fluids with minimal improvement in his blood pressure. Is more arousable. Cortisol is within normal limits. Patient is on morphine 15 mg extended release every 12 hours. Real shakey when he stands 'everything goes black when I stand.' Since last . Feels his symptoms are more frequent. Was told he was dehydrated and 'drinking enough gatorade to sink a battleship' which hasn't helped. Had a fever 3-4 days ago. Last night temperature 102*F. No ticks. No cough. Shortness of breath at baseline. Uses 2L of oxygen at baseline when laying down throughout the day. On 2L at time of assessment. USes COPD inhalers which he has been using routinely. Feels he has had increased wheezing for the last week which comes and goes. Improves with his nebulizer 3x per week. No chest pain, no chest pressure. No nausea, vomting. Saturday has some loose BMs. No blood or melena. No abdominal or other pain. No rashes. No other new sx. Medical History: Reviewed Medications: Reviewed Surgical History: Reviewed Allergies: Reviewed Social History: tobacco 1ppd. Would like patch. No EtOH, MM, IVDU. Code Status: Full Code. surrogate would be . Allergies Allergy/AdvReac Type Severity Reaction Status Date / Time bee venom protein (honey bee) Allergy Severe PASSES OUT Verified 02/21/22 16:16 naproxen Allergy Intermediate SEVERE RASH Verified 02/21/22 16:16 tramadol AdvReac Intermediate GI SYMPTOMS Verified 02/21/22 16:16 Home Medications Medication Instructions Recorded Confirmed Type albuterol sulfate 90 mcg/actuation 2 puff INHALATION Q4H PRN 01/02/19 02/21/22 History aerosol inhaler aspirin 325 mg tablet 325 mg PO QAM tab 07/02/19 02/21/22 History docusate sodium 100 mg capsule 100 mg PO BID PRN 07/02/19 02/21/22 History nitroglycerin 0.4 mg sublingual 0.4 mg SUBLINGUAL ONCE PRN #20 tab 01/11/20 02/21/22 Rx tablet ipratropium 0.5 mg-albuterol 3 mg 3 ml INHALATION QID PRN #180 ml 05/24/20 02/21/22 Rx (2.5 mg base)/3 mL nebulization soln metoprolol tartrate 50 mg tablet 50 mg PO BID #180 tab 01/23/21 02/21/22 Rx blood sugar diagnostic (OneTouch #100 ea 02/15/21 02/21/22 Rx Verio test strips) lancets 33 gauge (OneTouch Delica #100 ea 02/15/21 02/21/22 Rx Lancets) metformin 500 mg tablet,extended 1,000 mg PO DAILY #180 tab 04/25/21 02/21/22 Rx release 24hr duloxetine 60 mg capsule,delayed 60 mg PO QAM #90 cap 07/03/21 02/21/22 Rx release fluticasone furoate 100 1 inh INHALATION BID #60 ea 07/28/21 02/21/22 Rx mcg-vilanterol 25 mcg/dose inhalation powder (Breo Ellipta) gabapentin 300 mg capsule 900 mg PO TID #270 cap 10/05/21 02/21/22 Rx umeclidinium 62.5 mcg/actuation 1 inh INHALATION QAM #30 ea 10/05/21 02/21/22 Rx blister powder for inhalation (Incruse Ellipta) cyanocobalamin (vitamin B-12) 100 100 mcg PO QAM #90 tab 02/24/22 05/11/22 Rx mcg tablet (Vitamin B-12) tamsulosin 0.4 mg capsule 0.4 mg PO DAILY #30 cap 12/07/21 02/21/22 Rx valsartan 160 mg tablet 160 mg PO QAM #90 tab 12/26/21 02/21/22 Rx morphine 15 mg tablet,extended 15 mg PO Q12H #60 tab 02/16/22 02/21/22 Rx release oxycodone 15 mg tablet 15 mg PO Q6H #90 tab 02/16/22 02/21/22 Rx atorvastatin 80 mg tablet 80 mg PO HS #90 tab 02/20/22 02/21/22 Rx epinephrine 0.3 mg/0.3 mL 0.3 mg IM DIRECTED PRN 02/21/22 02/21/22 History injection, auto-injector (EpiPen) furosemide 40 mg tablet 40 mg PO DAILY PRN 02/21/22 02/21/22 History Past Med/Surg History Medical History Abnormal CT scan, chest Anaphylactic reaction Anemia Anxiety disorder Arthritis of right shoulder region Back pain Bilateral carpal tunnel syndrome Chest pain Chronic bronchitis Chronic pain Chronic pain syndrome COPD (chronic obstructive pulmonary disease) COPD exacerbation COPD, mild Diastolic CHF, acute on chronic Dyshidrotic eczema Excessive daytime sleepiness Gait disturbance GERD (gastroesophageal reflux disease) H/O supraventricular tachycardia History of non-ST elevation myocardial infarction (NSTEMI) Hypercholesterolemia Hyperlipemia Hypertension Insomnia Internal hemorrhoids Lumbar radiculopathy Male erectile disorder of organic origin Mitral valve disorder MVP (mitral valve prolapse) Neural foraminal stenosis of cervical spine Nicotine dependence NSTEMI (non-ST elevated myocardial infarction) SAUL (obstructive sleep apnea) Pancytopenia Polyneuropathy Seborrheic keratosis Secondary pulmonary hypertension Tobacco abuse Transaminitis Type II diabetes mellitus Ulnar neuropathy at elbow Vitamin B12 deficiency Surgical History H/O cardiac catheterization History of cholecystectomy Hx of appendectomy Hx of arthroscopic knee surgery S/P appy S/P cervical spinal fusion S/P tonsillectomy and adenoidectomy Family History Father Hypertension Brother Hypertension Aunt Breast cancer Other Allergies Cancer Diabetes Heart disease No significant family history Denies family history of Tuberculosis Ovarian cancer Prostate cancer Emphysema, unspecified Colorectal cancer Lung disease Asthma Social History Smoking Status: Current every day smoker Tobacco Type: Cigarettes packs per day: 1; Years Smoked: 25; Cigarettes Per Day: 20; Second Hand Exposure: Yes; Hx Alcohol Use: No Hx Substance Use: No Preferred Language: Maltese Communication Ability: Effective Visual Impairment: No Limitations X Ray Consultant Required: No Beliefs That Will Affect Care: None marital status: Current Living Situation: Spouse current occupational status: disabled Feels Safe at Home: Yes Childhood Exposure to Second-Hand Smoke: Yes caffeine: Yes Dental Care, Regularly: No Physical Activity Frequency: Does not Exercise Seatbelt Use: always Sunscreen Use: No Assistive Devices: Glasses, Oxygen - at Night and Oxygen - Continuous Review of Systems Review of Systems: All systems reviewed & are unremarkable except as noted in Subjective Physical Exam Physical Exam: General: A&Ox3. NAD. Cooperative. HEENT: Atraumatic, normocephalic. Pupils constricted, improved at end of exam. Vision/hearing intact Pulm: CTAB A&P. +scattered inspiratory and expiratory wheeze. Symmetrical chest rise. No increased work of breathing. No respiratory distress. On 2L NC Cardiac: RRR, +soft SM. Radial pulses intact and symmetrical. Abdominal: Nontender, nondistended, soft. BS present. Ext:Warm, dry, sensation/strength grossly intact and symmetrical in all four extremities Results & Data Results & Data ([facility]) Vital Signs (Past 12 Hours) Vital Signs Temp Pulse Pulse Resp BP BP Pulse Ox 02/21/22 17:00 74 17 85/56 L 96 02/21/22 16:05 37 C 64 64 14 82/47 L 96 02/21/22 15:43 37 C 65 65 12 80/57 L 80/57 L 96 PG Care Time/CCT Total # of Minutes Spent Total Time Spent with Patient: Total time spent is greater than 50% in coordination of care (as documented) at patient's floor/unit and/or counseling patient: Coding Level of Care Code INT OBSERVATION CARE 70M LVL 3 Diagnoses Subjective fever R50.9 Hypotension I95.9 Type II diabetes mellitus E11.9 CAD (coronary artery disease) I25.10 COPD (chronic obstructive pulmonary disease) J44.9 Anxiety disorder F41.9 Hypercholesterolemia E78.00 Nicotine dependence F17.200 MVP (mitral valve prolapse) I34.1
[2022-02-21 19:19] LABS: Lyme Ab IgG w/WB Rflx Negative (Negative)
[2022-02-21 19:28] LABS: Lyme Ab IgM w/WB Rflx Equivocal (Negative)
[2022-02-21] MEDS ORDERED: AMPICILLIN/SULBACTAM SOD 3,000 MG in 0.9 % SODIUM CHLORIDE 100 ML IV SCH (19:30)
[2022-02-21 19:34] LABS: Influenza A virus by PCR Negative (Neg); Influenza B virus by PCR Negative (Neg); RSV by PCR Negative (Neg)
[2022-02-21 19:37] LABS: SARS CoV2 RNA(COVID-19) InHosp POSITIVE (Negative)
[2022-02-21] MEDS ORDERED: GLUCAGON FOR INJ 1 MG VIAL SQ PRN (21:21)
[2022-02-21] MEDS ORDERED: GLUCOSE 40% GEL 15 GM TUBE PO PRN (21:21)
[2022-02-21] MEDS ORDERED: ALBUT/IPRATROP 3MG/0.5MG NEB 3 ML VIAL NEB PRN (21:21)
[2022-02-21] MEDS ORDERED: DEXTROSE 50% 50 ML SYRINGE IV PRN (21:21)
[2022-02-21] MEDS ORDERED: CARBOHYDRATES FOR HYPOGLYCEMIA PO PRN (21:21)
[2022-02-21] MEDS ORDERED: ALBUTEROL HFA 8 GM INHALER INH PRN (21:21)
[2022-02-21] MEDS ORDERED: ACETAMINOPHEN 325 MG TAB PO PRN (21:21)
[2022-02-21] MEDS ORDERED: POLYETHYLENE (MIRALAX) 17 GM PACK PO PRN (21:21)
[2022-02-21] MEDS ORDERED: GLUCOSE 10 TABS/TUBE PO PRN (21:21)
[2022-02-21 22:29] LABS: Appearance Urine Clear (Clear); Bilirubin Urine Negative (Negative); Blood Urine Negative (Negative); Color Urine Yellow; Glucose Urine UA Negative (Negative); Ketones Urine Negative (Negative); Leukocyte Esterase Urine Negative (Negative); Nitrite Urine Negative (Negative); Protein Urine Negative (Negative); Specific Gravity Urine 1.014 (1.000-1.030); Urobilinogen Urine Negative (Negative)
[2022-02-21] MEDS: dexAMETHasone 6 MG in SYRINGE 0 ML IV SCH (22:29)
[2022-02-21] MEDS: ATORVASTATIN 40 MG TAB PO SCH (22:29)
[2022-02-21] MEDS: ENOXAPARIN INJ 40 MG/0.4 ML SYR SQ SCH (22:30)
[2022-02-21] MEDS: FLUTICASONE/VILANTEROL 100/25MCG 14 PUFFS/INHALER INH SCH (22:30)
[2022-02-21] MEDS: INSULIN ASPART PER UNIT SC SCH (22:30)
[2022-02-21] MEDS: GABAPENTIN 300 MG CAP PO SCH (22:30)
[2022-02-21] MEDS: METOPROLOL TARTRATE 50 MG TAB PO SCH (22:31)
[2022-02-21] MEDS: NICOTINE 21 MG/24 HR TDSY TD SCH (22:31)
[2022-02-21] MEDS: INSULIN GLARGINE SOLOSTAR 100 UNITS/ML 3 ML PEN SC SCH (22:39)
[2022-02-21 22:59] LABS: Amphetamines+Metham, Urine Neg (Neg); Barbiturates, Urine Neg (Neg); Benzodiazepine, Urine Neg (Neg); Cocaine, Urine Neg (Neg); MDMA (Ecstacy), Urine Neg (Neg); Methadone, Urine Neg (Neg); Opiate, Urine Pos (Neg); Phencyclidine, Urine Neg (Neg)
[2022-02-22 07:46] LABS: Eosinophils # (auto) 0.01 K/uL (0-0.5); Eosinophils % (auto) 0.3 %; Hematocrit (blood only) 35.4 % (42-52); Hemoglobin 11.7 g/dL (14.0-18.0); Immature Granulocytes # (auto) 0.01 K/uL (0.00-0.02); Immature Granulocytes % (auto) 0.3 %; Lymphocytes # (auto) 0.73 K/uL (1.2-3.4); Mean Corpuscular Hemoglobin 30.8 pg (25-34); Mean Corpuscular Hgb Conc 33.1 g/dL (32-36); Mean Corpuscular Volume 93.2 fL (80-100); Mean Platelet Volume 9.6 fL (7.4-10.4); Monocytes % (auto) 2.7 %; Neutrophils % (auto) 76.7 %; Platelet Count 221 K/uL (130-400); RDW Coefficient of Variation 13.6 % (11.5-14.5); RDW Standard Deviation 46.7 fL (36.4-46.3); White Blood Count 3.65 K/uL (4.8-10.8)
[2022-02-22 08:30] LABS: BUN Creatinine Ratio 17.1 (10-20); C Reactive Protein 3.81 mg/dl (0-0.5); Calcium 8.4 mg/dl (8.5-10.1); Creatinine Clr Calc Pharmacy 129.4 ml/min; Est GFR (African American) 120.6 ml/min; Potassium 4.3 mmol/L (3.5-5.1)
[2022-02-22 09:11] LABS: Estimated Average Glucose 140 mg/dl; Hemoglobin A1C 6.5 % (4.5-5.6)
[2022-02-22] MEDS: INSULIN ASPART PER UNIT SC SCH ×4 (09:30→21:58)
[2022-02-22] MEDS: INSULIN GLARGINE SOLOSTAR 100 UNITS/ML 3 ML PEN SC SCH ×2 (09:30→21:57)
[2022-02-22] MEDS: MoRPHine SULFATE CR 15 MG TABCR PO SCH ×2 (09:32→22:11)
[2022-02-22] MEDS: dexAMETHasone 6 MG in SYRINGE 0 ML IV SCH ×2 (09:32→22:08)
[2022-02-22] MEDS: NICOTINE 21 MG/24 HR TDSY TD SCH (09:32)
[2022-02-22] MEDS: METOPROLOL TARTRATE 50 MG TAB PO SCH ×2 (09:33→22:11)
[2022-02-22] MEDS: TAMSULOSIN HCL 0.4 MG CAP PO SCH (09:33)
[2022-02-22] MEDS: CYANOCOBALAMIN (B-12) 100 MCG TABLET PO SCH (09:33)
[2022-02-22] MEDS: ENOXAPARIN INJ 40 MG/0.4 ML SYR SQ SCH ×2 (09:33→22:11)
[2022-02-22] MEDS: UMECLIDINIUM BROMIDE 62.5MCG/BLISTER 7 PUFFS/INHALER INH SCH (09:33)
[2022-02-22] MEDS: GABAPENTIN 300 MG CAP PO SCH ×3 (09:33→22:11)
[2022-02-22] MEDS: ASPIRIN 325 MG ECTAB PO SCH (09:33)
[2022-02-22] MEDS: DULoxetine HCL 60 MG CAP PO SCH (09:33)
[2022-02-22] MEDS: FLUTICASONE/VILANTEROL 100/25MCG 14 PUFFS/INHALER INH SCH ×2 (09:34→22:12)
--- NOTE | 2022-02-22 13:15 | Hospitalist Progress Note ---
Date of Service February 22, 2022 Assessment & Plan (1) Subjective fever: Plan: Fever, altered mental status suspect 2/2 COVID. Difficult Lyme testing on admission, confirmation blot pending On admission no leukocytosis, hemoglobin 12.4, INR 0.9,cr baseline of approxim ately 1.01.2 1.43, glucose 105, lactate is normal, CRP elevated to 5.33, procalcitonin is normal, random cortisol 11.29/not suppressed. Chest x-ray does show pulmonary vascular congestion and nonspecific mid to lower lung interstitial coarsening? Pneumonitis versus developing pulmonary edema. VBG is pending. EKG normal sinus rhythm, QTC [address] changes or T wave inversions Patient is on morphine 15 mg p.o. 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 No GI or urinary complaints. Does have some wheezing, no other pulmonary symptoms. 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 Lyme IgM equivocal, confirmation and anaplasmosis pending COVID-positive Patient vaccinated Dexamethasone 6 mg twice daily for COVID +/- COPD exacerbation Remdesivir deferred for risk/benefits discussion due to length of illness nearing 10 days and potential DOMENICA on admission Follow CRP if oxygen requirements stable progressing towards discharge Chronic hypoxic respiratory failure Baseline oxygen requirements 2L. 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 every morning Hypotension As above improved following Narcan Hold valsartan 160 mg p.o. every morning Continue metoprolol 50 mg p.o. twice daily tartrate Hold Lasix 40 mg p.o. daily Resume valsartan/Lasix if blood pressure remains stable tomorrow Hyperlipidemia Continue atorvastatin 80 mg p.o. nightly CAD. Denies hx stents/MT. - ASA. 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 Sims a little warm last night, no fevers this morning while on Tylenol. Feels his breathing is near baseline. Feels somewhat more cognitively clear today. 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 Denies chest pain, chest pressure, abdominal pain, nausea, vomiting, diarrhea today. No rash. Review of Systems Review of Systems: All systems reviewed & are unremarkable except as noted in Subjective Physical Exam Physical Exam: General: A&Ox3. NAD. Cooperative. HEENT: Atraumatic, normocephalic. Pupils equal and reactive to light. Vision/hearing intact Pulm: CTAB A&P. +scattered inspiratory and expiratory wheeze. Symmetrical chest rise. No increased work of breathing. No respiratory distress. On 2L NC Cardiac: RRR, +soft SM. Radial pulses intact and symmetrical. Abdominal: Nontender, nondistended, soft. BS present. Ext:Warm, dry, sensation/strength grossly intact and symmetrical in all four extremities Results & Data Results & Data ([facility]) Vital Signs (Past 12 Hours) Vital Signs Temp Pulse Resp BP Pulse Ox 02/22/22 08:24 36.7 C 81 18 139/83 96 02/22/22 05:00 36.8 C 83 22 115/69 96 PG Care Time/CCT Total # of Minutes Spent Total Time Spent with Patient: Total time spent is greater than 50% in coordination of care (as documented) at patient's floor/unit and/or counseling patient: Coding Level of Care Code 47645 Subseq Hosp Care Lvl 2 Diagnoses Subjective fever R50.9 Hypotension I95.9 Type II diabetes mellitus E11.9 CAD (coronary artery disease) I25.10 COPD (chronic obstructive pulmonary disease) J44.9 Anxiety disorder F41.9 Hypercholesterolemia E78.00 Nicotine dependence F17.200 MVP (mitral valve prolapse) I34.1
[2022-02-22] MEDS: DOXYCYCLINE HYCLATE 100 MG in DEXTROSE 5% 100 ML IV SCH (22:09)
[2022-02-22] MEDS: ATORVASTATIN 40 MG TAB PO SCH (22:11)
[2022-02-23] MEDS: DOXYCYCLINE HYCLATE 100 MG in DEXTROSE 5% 100 ML IV SCH (09:08)
[2022-02-23] MEDS: INSULIN ASPART PER UNIT SC SCH ×2 (09:30→13:32)
[2022-02-23] MEDS: INSULIN GLARGINE SOLOSTAR 100 UNITS/ML 3 ML PEN SC SCH (09:30)
[2022-02-23] MEDS: MoRPHine SULFATE CR 15 MG TABCR PO SCH (09:54)
[2022-02-23] MEDS: UMECLIDINIUM BROMIDE 62.5MCG/BLISTER 7 PUFFS/INHALER INH SCH (09:55)
[2022-02-23] MEDS: ENOXAPARIN INJ 40 MG/0.4 ML SYR SQ SCH (09:55)
[2022-02-23] MEDS: FLUTICASONE/VILANTEROL 100/25MCG 14 PUFFS/INHALER INH SCH (09:55)
[2022-02-23] MEDS: CYANOCOBALAMIN (B-12) 100 MCG TABLET PO SCH (09:56)
[2022-02-23] MEDS: dexAMETHasone 6 MG in SYRINGE 0 ML IV SCH (09:56)
[2022-02-23] MEDS: DULoxetine HCL 60 MG CAP PO SCH (09:56)
[2022-02-23] MEDS: ASPIRIN 325 MG ECTAB PO SCH (09:56)
[2022-02-23] MEDS: METOPROLOL TARTRATE 50 MG TAB PO SCH (09:56)
[2022-02-23] MEDS: TAMSULOSIN HCL 0.4 MG CAP PO SCH (09:56)
[2022-02-23] MEDS: GABAPENTIN 300 MG CAP PO SCH ×2 (09:56→13:33)
[2022-02-23] MEDS: NICOTINE 21 MG/24 HR TDSY TD SCH (09:56)
--- NOTE | 2022-02-23 13:02 | Discharge Summary ---
Date of Service February 23, 2022 Admission HPI Per Admitting Provider sodium 132, potassium 3.6, creatinineMeet Davis is a 56-year-old male with a past medical history of type 2 diabetes mellitus, renal insufficiency, diastolic CHF, COPD, tobacco abuse, chronic pain on narcotics, GERD, mitral valve prolapse, and lumbar radiculopathy who presented altered and hypotensive. In the ER he received 2 L of fluids with minimal improvement in his blood pressure. Is more arousable. Cortisol is within normal limits. Patient is on morphine 15 mg extended release every 12 hours. Real shakey when he stands 'everything goes black when I stand.' Since last . Feels his symptoms are more frequent. Was told he was dehydrated and 'drinking enough gatorade to sink a battleship' which hasn't helped. Had a fever 3-4 days ago. Last night temperature 102*F. No ticks. No cough. Shortness of breath at baseline. Uses 2L of oxygen at baseline when laying down throughout the day. On 2L at time of assessment. USes COPD inhalers which he has been using routinely. Feels he has had increased wheezing for the last week which comes and goes. Improves with his nebulizer 3x per week. No chest pain, no chest pressure. No nausea, vomting. Saturday has some loose BMs. No blood or melena. No abdominal or other pain. No rashes. No other new sx. Medical History: Reviewed Medications: Reviewed Surgical History: Reviewed Allergies: Reviewed Social History: tobacco 1ppd. Would like patch. No EtOH, MM, IVDU. Code Status: Full Code. surrogate would be . Principal Diagnosis COVID+, ?Lyme Discharge Exam General: A&Ox3. NAD. Cooperative. HEENT: Atraumatic, normocephalic. Pupils equal and reactive to light. Vision/hearing intact Pulm: CTAB A&P. +scattered inspiratory and no expiratory wheeze on dc. Symmetrical chest rise. No increased work of breathing. No respiratory distress. On 2-3L NC Cardiac: RRR, +soft SM. Radial pulses intact and symmetrical. Abdominal: Nontender, nondistended, soft. BS present. Ext:Warm, dry, sensation/strength grossly intact and symmetrical in all four extremities Discharge Data Allergies Allergy/AdvReac Type Severity Reaction Status Date / Time bee venom protein (honey bee) Allergy Severe PASSES OUT Verified 02/21/22 16:16 naproxen Allergy Intermediate SEVERE RASH Verified 02/21/22 16:16 tramadol AdvReac Intermediate GI SYMPTOMS Verified 02/21/22 16:16 Consultations 02/21/22 18:05 ED Decision to Admit Stat Hospital Course (1) Subjective fever: To Do as outpt: 1. Complete 10 days dexamethasone for COVID+ 2. Followup on Lyme serology confirmation testing. IgM equivocal, dced with doxy 100mg x10 days BID but may dc if testing negative 3. Isolate for 14 days from onset of sx 4. PCP followup Fever, altered mental status suspect 2/2 COVID. Difficult Lyme testing on admission, confirmation blot pending On admission no leukocytosis, hemoglobin 12.4, INR 0.9,cr baseline of approximately 1.01.2 1.43, glucose 105, lactate is normal, CRP elevated to 5.33, procalcitonin is normal, random cortisol 11.29/not suppressed. Chest x- ray does show pulmonary vascular congestion and nonspecific mid to lower lung interstitial coarsening? Pneumonitis versus developing pulmonary edema. VBG is pending. EKG normal sinus rhythm, QTC [address] changes or T wave inversions Patient is on morphine 15 mg p.o. every 12 hours [employer],? 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 No GI or urinary complaints. Does have some wheezing, no other pulmonary symptoms. 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 Lyme IgM equivocal, confirmation and anaplasmosis pending COVID-positive Patient vaccinated Dexamethasone 6 mg twice daily for COVID +/- COPD exacerbation Remdesivir deferred for risk/benefits discussion due to length of illness nearing 10 days and potential DOMENICA on admission Follow CRP if oxygen requirements stable progressing towards discharge Chronic hypoxic respiratory failure Baseline oxygen requirements 2L. At baseline No leukocytosis Concern for narcosis/sedation with aspiration event as previously mentioned COPD, Acute on Chronic Continue umeclidinium Continue ipratropium/albuterol 4 times daily as needed Continue fluticasonevilanterol twice daily - Pred 40mg daily burst - +wheezing on exam, at baseline O2. Improved at dc Doxy used in palce of azithro given intermittent fever to 102 and living in [facility], hx of tick exposure and anaplasmosis last year with equivocal Lyme testing as above Anxiety/depression Continue duloxetine 60 mg p.o. every morning Hypotension As above improved following Narcan Hold valsartan 160 mg p.o. every morning Continue metoprolol 50 mg p.o. twice daily tartrate Hold Lasix 40 mg p.o. daily Resume valsartan/Lasix if blood pressure remains stable tomorrow Hyperlipidemia Continue atorvastatin 80 mg p.o. nightly CAD. Denies hx stents/NE. - ASA. On full dose aspir following risk benefits discussion with PCP given strong family history Statin as previously noted Metoprolol as previously noted ARBas previously noted Type 2 diabetes mellitus Hold [employer] metformin Glucose checks AC/at bedtime Weight-based basal/bolus insulin - Last A1c 6.3% DVT PPx Lovenox CODE STATUS Full Diet T2DM (2) Hypotension: (3) Type II diabetes mellitus: (4) CAD (coronary artery disease): (5) COPD (chronic obstructive pulmonary disease): (6) Anxiety disorder: (7) Hypercholesterolemia: (8) Nicotine dependence: (9) MVP (mitral valve prolapse): Total Time Total Time Spent Total Time Spent (In Minutes): Time spend day of discharge 40 minutes including direct patient care, documentation, review of labs and images, and coordination of care. Discharge Plan Discharge Items Patient Disposition: Home - Self-Care Reason For Visit: FEVER, AMS, COVID+ Discharge Diagnosis: COVID19+ Activity: Per Instructions section Non-emergency contact: Primary Care Provider Call non-emergency contact if: you have any medication questions, your symptoms worsen and your pain is not controlled Follow-up/Referrals: Mansoor Zhao MD [Primary Care Provider] - Diet: Heart Healthy Addtl Attending Provider Instructions: You were seen in the hospital for weakness and fever. You were found to be COVID-positive. You were treated with steroids and did clinically well and were breathing at your normal baseline on your baseline level of oxygen at discharge. On admission you were noted to also have equivocal Lyme disease testing and have been started on empiric antibiotics with doxycycline as noted below. Confirmation testing is pending, please review this with your primary care physician at a follow-up visit. You have been prescribed a steroid, dexamethasone. Please take dexamethasone 6 mg twice daily for 8 additional days to complete a 10-day course of treatment. You have been prescribed an antibiotic, doxycycline. Please take doxycycline 100 mg twice daily for 10 days. If your Lyme confirmation testing is negative you may stop taking this antibiotic. Please follow-up with your primary care physician within 1 week. If you develop any new or worsening symptoms including fever, chills, sweats, chest pain, chest pressure, difficulty breathing, uncontrolled nausea/vomiting, rash, wheezing, passing out or nearly passing out, bleeding, black/bloody bowel movements, or other new or concerning symptoms please call your primary care physician, or call 911 for re-evaluation in the emergency department if you are very concerned. Pending Studies at Discharge: Yes (Lyme confirmation testing ) Stand-Alone Forms: My [employer], Smoking Cessation Medications and DC Order Prescriptions: New dexamethasone 6 mg tablet 6 mg PO BID 8 Days Qty: 16 RF: 0 doxycycline hyclate 100 mg tablet 100 mg PO BID 8 Days Qty: 16 RF: 0 Continued ipratropium-albuterol 0.5 mg-3 mg(2.5 mg base)/3 mL solution for nebulization 3 ml Inhalation QID PRN (Reason: Shortness Of Breath) Qty: 180 RF: 3 metoprolol tartrate 50 mg tablet 50 mg PO BID Qty: 180 RF: 3 duloxetine 60 mg capsule,delayed release(DR/EC) 60 mg PO QAM Qty: 90 RF: 3 Breo Ellipta 100-25 mcg/dose blister with device 1 inh inhalation BID Qty: 60 RF: 5 gabapentin 300 mg capsule 900 mg PO TID Qty: 270 RF: 5 Incruse Ellipta 62.5 mcg/actuation blister with device 1 inh inhalation QAM Qty: 30 RF: 5 valsartan 160 mg tablet 160 mg PO QAM Qty: 90 RF: 3 morphine 15 mg tablet extended release 15 mg PO Q12H Qty: 60 RF: 0 oxycodone 15 mg tablet 15 mg PO Q6H Qty: 90 RF: 0 atorvastatin 80 mg tablet 80 mg PO HS Qty: 90 RF: 3 nitroglycerin 0.4 mg tablet, sublingual 0.4 mg sublingual ONCE PRN (Reason: chest pain) Qty: 20 RF: 3 metformin 500 mg tablet extended release 24hr 1,000 mg PO DAILY Qty: 180 RF: 3 aspirin 325 mg tablet 325 mg PO QAM RF: 0 docusate sodium 100 mg capsule 100 mg PO BID PRN (Reason: Constipation) RF: 0 cyanocobalamin (vitamin B-12) [Vitamin B-12] 100 mcg tablet 100 mcg PO QAM Qty: 90 RF: 3 tamsulosin 0.4 mg capsule 0.4 mg PO DAILY Qty: 30 RF: 5 albuterol sulfate 90 mcg/actuation Hfa Aerosol Inhaler 2 puff INHALATION Q4H PRN (Reason: Wheezing) RF: 0 (DME) OneTouch Verio test strips Strip See Rx Instructions .ROUTE .MEDSUPPLY Qty: 100 RF: 1 (DME) lancets [OneTouch Delica Lancets] 33 gauge misc See Rx Instructions .ROUTE .MEDSUPPLY Qty: 100 RF: 1 furosemide 40 mg tablet 40 mg PO DAILY PRN (Reason: Edema) RF: 0 epinephrine [EpiPen] 0.3 mg/0.3 mL auto-injector 0.3 mg IM DIRECTED PRN (Reason: Allergic Reaction) RF: 0 Discharge Orders: Discharge Order (Routine); Ordered 02/23/22 Ordered By: Goran Martines/Other Patient Handouts: Managing Type 2 Diabetes Admission Data Admit Date/Time: 02/21/22 19:47 Attending Provider: Goran Rutledge Admit Provider: Goran Rutledge Primary Care Provider: Mansoor Zhao Other Providers: Goran Rutledge Coding Level of Care Code D/C DAY MANAGEMENT >30 MINS Diagnoses Subjective fever R50.9 Hypotension I95.9 Type II diabetes mellitus E11.9 CAD (coronary artery disease) I25.10 COPD (chronic obstructive pulmonary disease) J44.9 Anxiety disorder F41.9 Hypercholesterolemia E78.00 Nicotine dependence F17.200 MVP (mitral valve prolapse) I34.1
--- NOTE | 2022-02-23 14:27 | Electrocardiogram Report ---
Test Reason : Blood Pressure : / mmHG Vent. Rate : 066 BPM Atrial Rate : 066 BPM P-R Int : 162 ms QRS Dur : 110 ms QT Int : 460 ms P-R-T Axes : 030 038 046 degrees QTc Int : 482 ms Normal sinus rhythm Prolonged QT Abnormal ECG When compared with ECG of 15-FEB-2022 20:36, No significant change was found Confirmed by Reagan Reid [id number] on 02/23/2022 2:27:09 PM Referred By: Confirmed By:Reagan Reid
[2022-02-24 02:46] LABS: 18KDIGG Band NON-REACTIVE; 23KDIGG Band NON-REACTIVE; 23KDIGM Band NON-REACTIVE; 28KDIGG Band NON-REACTIVE; 30KDIGG Band NON-REACTIVE; 39KDIGG Band NON-REACTIVE; 39KDIGM Band NON-REACTIVE; 41KDIGG Band NON-REACTIVE; 41KDIGM Band NON-REACTIVE; 45KDIGG Band NON-REACTIVE; 58KDIGG Band NON-REACTIVE; 66KDIGG Band NON-REACTIVE; 93KDIGG Band NON-REACTIVE; Lyme Antibodies, WB IgG NEGATIVE (NEGATIVE); Lyme Antibodies, WB IgM NEGATIVE (NEGATIVE)
[2022-02-24 16:16] LABS: Codeine Urine NEGATIVE ng/mL (<50); Hydrocodone Urine NEGATIVE ng/mL (<50); Hydromor Urine NEGATIVE ng/mL (<50); Morphine Urine 2850 ng/mL (<50); Norhydrocodone Conf Ur NEGATIVE ng/mL (<50); Noroxycodone Urine 5190 ng/mL (<50); Oxycodone Urine 6450 ng/mL (<50); Oxymorph Urine 686 ng/mL (<50)
== END 2022-02-23 14:23 | disposition home or self-care (01) | DRG 177 ==
LOC: ED 15:32 → 3W 19:47

== ENCOUNTER 2022-10-29 05:44 | Inpatient (IN) ==
[2022-10-29 06:14] LABS: Basophils # (auto) 0.04 K/uL (0-0.2); Basophils % (auto) 0.2 %; Eosinophils # (auto) 0.02 K/uL (0-0.50); Eosinophils % (auto) 0.1 %; Hematocrit (blood only) 41.2 % (40.1-51.0); Hemoglobin 13.9 g/dl (14.0-18.0); Immature Granulocytes # (auto) 0.44 K/uL (0.00-0.02); Immature Granulocytes % (auto) 2.2 %; Lymphocytes # (auto) 2.71 K/uL (1.2-3.4); Lymphocytes % (auto) 13.8 %; Mean Corpuscular Hemoglobin 31.2 pg (25.0-34.0); Mean Corpuscular Hgb Conc 33.7 g/dL (32.0-36.0); Mean Corpuscular Volume 92.4 fL (80.0-100.0); Mean Platelet Volume 9.2 fL (9.4-12.4); Monocytes # (auto) 1.49 K/uL (0.24-0.82); Monocytes % (auto) 7.6 %; Neutrophils # (auto) 14.98 K/uL (1.4-6.5); Neutrophils % (auto) 76.1 %; Platelet Count 415 K/uL (130-400); RDW Coefficient of Variation 16.1 % (11.5-14.5); RDW Standard Deviation 54.3 fL (36.4-46.3); Red Blood Count 4.46 M/uL (4.63-6.08); White Blood Count 19.68 K/ul (4.8-10.8)
[2022-10-29] MEDS ORDERED: ALBUT/IPRATROP 3MG/0.5MG NEB 3 ML VIAL NEB ONE (06:25)
[2022-10-29] MEDS ORDERED: dexAMETHasone**PF** 10 MG/ML VIAL IV ONE (06:25)
[2022-10-29] MEDS ORDERED: HYDROmorphone INJ 1 MG/ML SYRINGE IV STA (06:25)
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
[2022-10-29 06:35] LABS: Albumin Globulin Ratio 1.5 (0.9-2); Albumin Level 4.3 gm/dl (3.4-5.0); BUN Creatinine Ratio 30.3 (10-20); Bilirubin,Total 0.3 mg/dl (0.2-1.0); Calcium 9.4 mg/dl (8.5-10.1); Creatinine Clr Calc Pharmacy 127.6 ml/min; Est GFR (African American) 122.7 ml/min; Est GFR (Non-African American) 105.8 ml/min; Globulin 2.9 gm/dl (2.5-4.0); Potassium 3.7 mmol/L (3.5-5.1); Total Protein 7.2 gm/dl (6.0-8.3)
[2022-10-29 06:39] LABS: INR 0.9 (0.9-1.1); Partial Thromboplastin Ratio 0.9; Partial Thromboplastin Time 23.4 Seconds (21.0-31.0); Prothrombin Time 9.4 Seconds (9.0-12.0)
[2022-10-29 06:41] LABS: Troponin I High Sensitivity 12.2 pg/ml (0-20)
[2022-10-29 07:03] LABS: Influenza A virus by PCR Negative (Neg); Influenza B virus by PCR Negative (Neg); RSV by PCR Negative (Neg); SARS CoV2 RNA(COVID-19) Ceph NEGATIVE (Negative)
--- NOTE | 2022-10-29 07:11 | XRay Report ---
XR chest 1V portable HISTORY: 57 years-old Male shortness of breath acute shortness of breath COMPARISON: Chest radiograph 07/09/2022, chest CT 02/09/2022. TECHNIQUE: AP view of the chest FINDINGS: Cardiomediastinal and hilar silhouettes are within normal limits. No pneumothorax, pleural effusion o r lobar airspace consolidation. Pulmonary vascular congestion with mild interstitial coarsening of th e lung bases. Degenerative changes of the shoulders and spine. IMPRESSION: Pulmonary vascular congestion with mild interstitial coarsening of the lung bases favorin g atelectasis. A mild nonspecific pneumonitis could appear similarly. ACT 112: Negative or not required by law. The above report was generated using voice recognition software. It may contain grammatical, syntax o r spelling errors. Electronically signed by: Ed Carbajal M.D. 10/29/2022 7:10 AM
[2022-10-29] MEDS ORDERED: OPTIRAY 350 100ml IV ONE (07:39)
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
[2022-10-29] MEDS ORDERED: CEFEPIME 2,000 MG/20 ML VIAL IV STA (08:29)
[2022-10-29] MEDS ORDERED: AZITHROMYCIN 500 MG in DEXTROSE 5% 250 ML IV ONE (08:29)
[2022-10-29] MEDS ORDERED: GI COCKTAIL ED USE PO ONE (08:31)
[2022-10-29] MEDS ORDERED: PANTOprazole 80 MG in DEXTROSE 5% 100 ML IV STA (08:31)
[2022-10-29] MEDS ORDERED: NICOTINE 21 MG/24 HR TDSY TD STA (08:58)
[2022-10-29] MEDS ORDERED: DEXTROSE 50% 50 ML SYRINGE IV PRN (09:34)
[2022-10-29] MEDS ORDERED: CARBOHYDRATES FOR HYPOGLYCEMIA PO PRN (09:34)
[2022-10-29] MEDS ORDERED: ONDANSETRON INJ 2 MG/ML 2 ML VIAL IV PRN (09:34)
[2022-10-29] MEDS ORDERED: GLUCOSE 10 TAB/TUBE PO PRN (09:34)
[2022-10-29] MEDS ORDERED: GLUCAGON FOR INJ 1 MG VIAL SQ PRN (09:34)
[2022-10-29] MEDS ORDERED: ACETAMINOPHEN 325 MG TAB PO PRN (09:34)
[2022-10-29] MEDS ORDERED: GLUCOSE 40% GEL 15 GM TUBE PO PRN (09:34)
[2022-10-29] MEDS ORDERED: ALUMINUM/MAGNESIUM SUSP 30 ML UDC PO PRN (09:34)
[2022-10-29] MEDS ORDERED: PHARMACY GLYCEMIC MGMT CONSULT PRN (09:34)
[2022-10-29] MEDS ORDERED: cefTRIAXone SODIUM 1,000 MG in DEXTROSE 5% AD-VAN 50 ML IV SCH (09:45)
[2022-10-29] MEDS ORDERED: DOCUSATE SODIUM 100 MG CAP PO PRN (09:48)
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
--- NOTE | 2022-10-29 11:03 | Pharmacy Report ---
Pharmacy Glycemic Short Note 2 - Date of Service October 29, 2022 - Glycemic Short BSG Results (Last 24 hours): 10/29/22 06:04 Glucose 159 H OUTPATIENT ANTIDIABETIC REGIMEN: * metformin 1 gm daily * A1c 6.4% 07/2022 ASSESSMENT: * 57 year old male admitted with worsening shortness of breath. Previously on prednisone/doxycycline with no improvement. Pharmacy consulted for glycemic management. Patient started on high dose steroids, therefore anticipate steroid induced hyperglycemia * Plan to start novolog stress of 3 weight based, will add on basal insulin at lunch to help with covering ongoing steroids. Unclear if patient tolerating PO diet, will follow up with RN to determine PLAN FOR INPATIENT GLYCEMIC CONTROL: * Hold outpatient oral diabetes medications * Basal insulin * Lantus ~0.2-0.3 units/kg x 1 with lunch time * Bolus insulin * NovoLog per scale ACHS or Q6hrs while NPO * Goal Range: Low 110 mg/dL - High 140 mg/dL * Correction Factor: 20 mg/dL/unit * Nutritional / Prandial insulin per carb ratio of 1 unit per 6 grams CHO consumed
[2022-10-29 11:29] LABS: Adenovirus PCR Not Detected (NotDetected); Bordetella parapertussis PCR Not Detected (NotDetected); Bordetella pertussis PCR Not Detected (NotDetected); Chlamydia pneumoniae PCR Not Detected (NotDetected); Coronavirus 229E PCR Not Detected (NotDetected); Coronavirus CoV-2 (COVID19)PCR Not Detected (NotDetected); Coronavirus HKU1 PCR Not Detected (NotDetected); Coronavirus NL63 PCR Not Detected (NotDetected); Human Metapneumovirus PCR Not Detected (NotDetected); Influenza A PCR Not Detected (NotDetected); Influenza B PCR Not Detected (NotDetected); Mycoplasma pneumoniae PCR Not Detected (NotDetected); Parainfluenza Virus 1 PCR Not Detected (NotDetected); Parainfluenza Virus 2 PCR Not Detected (NotDetected); Parainfluenza Virus 3 PCR Not Detected (NotDetected); Parainfluenza Virus 4 PCR Not Detected (NotDetected); Respiratory Syncytial VirusPCR Not Detected (NotDetected); Rhinovirus/Enterovirus PCR Not Detected (NotDetected)
[2022-10-29] MEDS: ENOXAPARIN INJ 40 MG/0.4 ML SYR SQ SCH (11:50)
[2022-10-29 11:59] LABS: Coronavirus OC43PCR DETECTED (NotDetected)
[2022-10-29] MEDS: ALBUTEROL 0.083% NEBU SOLN 3 ML VIAL INH SCH ×2 (12:12→20:52)
[2022-10-29] MEDS: oxyCODONE HCL IR 5 MG TAB (IMMEDIATE RELEASE) PO SCH ×3 (12:13→23:24)
[2022-10-29] MEDS: MoRPHine SULFATE CR 15 MG TABCR PO SCH (12:13)
[2022-10-29] MEDS: cefTRIAXone SODIUM 2,000 MG in DEXTROSE 5% 50 ML IV SCH (12:51)
[2022-10-29] MEDS: methylPREDNISolone 40 MG in SYRINGE 0 ML IV SCH ×2 (12:51→19:07)
[2022-10-29] MEDS ORDERED: LANTUS PER UNIT CHARGE SQ ONE (13:00)
[2022-10-29] MEDS: INSULIN ASPART PER UNIT SC SCH ×3 (13:03→23:19)
[2022-10-29] MEDS: GABAPENTIN 300 MG CAP PO SCH ×2 (13:26→20:44)
[2022-10-29] MEDS ORDERED: FAMOTIDINE 20 MG in SYRINGE 3 ML IV ONE (15:31)
[2022-10-29 16:14] LABS: Hematocrit (blood only) 39.8 % (40.1-51.0); Hemoglobin 13.6 g/dl (14.0-18.0)
[2022-10-29] MEDS: SUCRALFATE 1 GM/10 ML UDC PO SCH ×2 (16:19→20:45)
--- NOTE | 2022-10-29 17:20 | XCELERA ---
[id number]
[2022-10-29 18:17] LABS: Appearance Urine Clear (Clear); Bilirubin Urine Negative (Negative); Blood Urine Negative (Negative); Color Urine Yellow; Glucose Urine UA 1+ (Negative); Ketones Urine Negative (Negative); Leukocyte Esterase Urine Negative (Negative); Nitrite Urine Negative (Negative); Protein Urine Negative (Negative); Specific Gravity Urine 1.016 (1.000-1.030); Urobilinogen Urine Negative (Negative)
[2022-10-29] MEDS: METOPROLOL TARTRATE 25 MG TAB PO SCH (20:44)
[2022-10-29] MEDS: ATORVASTATIN 40 MG TAB PO SCH (20:44)
[2022-10-29] MEDS: BUDESONIDE 0.25 MG/2 ML VIAL (PULMICORT) INH SCH (20:48)
[2022-10-29] MEDS: FORMOTEROL 20 MCG/2 ML VIAL INH SCH (20:48)
[2022-10-29] MEDS ORDERED: METOPROLOL TARTRATE 50 MG TAB PO SCH (21:00)
[2022-10-29] MEDS ORDERED: LANTUS PER UNIT CHARGE SQ SCH (21:00)
[2022-10-29] MEDS: FAMOTIDINE 20 MG in SYRINGE 3 ML IV SCH (23:24)
[2022-10-30] MEDS ORDERED: INSULIN ASPART PER UNIT SC SCH
[2022-10-30] MEDS: MoRPHine SULFATE CR 15 MG TABCR PO SCH ×3 (00:23→23:06)
[2022-10-30] MEDS: ALBUTEROL 0.083% NEBU SOLN 3 ML VIAL INH SCH ×4 (00:33→19:17)
[2022-10-30] MEDS: methylPREDNISolone 40 MG in SYRINGE 0 ML IV SCH (02:41)
[2022-10-30] MEDS: oxyCODONE HCL IR 5 MG TAB (IMMEDIATE RELEASE) PO SCH ×4 (05:11→23:06)
[2022-10-30] MEDS: BUDESONIDE 0.25 MG/2 ML VIAL (PULMICORT) INH SCH ×2 (05:21→19:16)
[2022-10-30] MEDS: FORMOTEROL 20 MCG/2 ML VIAL INH SCH ×2 (05:22→19:16)
--- NOTE | 2022-10-30 05:47 | Electrocardiogram Report ---
Test Reason : Blood Pressure : / mmHG Vent. Rate : 118 BPM Atrial Rate : 118 BPM P-R Int : 122 ms QRS Dur : 100 ms QT Int : 342 ms P-R-T Axes : 040 058 066 degrees QTc Int : 479 ms Sinus tachycardia Possible Left atrial enlargement Borderline ECG When compared with ECG of 09-JUL-2022 18:48, No significant change was found Confirmed by Reagan Reid ([id number]) on 10/30/2022 5:47:22 AM Referred By: Confirmed By:Reagan Reid
[2022-10-30 07:45] LABS: Basophils # (auto) 0.04 K/uL (0-0.2); Basophils % (auto) 0.2 %; Hematocrit (blood only) 38.4 % (40.1-51.0); Immature Granulocytes # (auto) 0.45 K/uL (0.00-0.02); Immature Granulocytes % (auto) 2.7 %; Lymphocytes # (auto) 1.62 K/uL (1.2-3.4); Lymphocytes % (auto) 9.7 %; Mean Corpuscular Hemoglobin 31.3 pg (25.0-34.0); Mean Corpuscular Hgb Conc 33.9 g/dL (32.0-36.0); Mean Corpuscular Volume 92.3 fL (80.0-100.0); Mean Platelet Volume 9.7 fL (9.4-12.4); Monocytes # (auto) 0.78 K/uL (0.24-0.82); Monocytes % (auto) 4.7 %; Neutrophils # (auto) 13.78 K/uL (1.4-6.5); Neutrophils % (auto) 82.7 %; Platelet Count 408 K/uL (130-400); RDW Coefficient of Variation 16.2 % (11.5-14.5); RDW Standard Deviation 54.8 fL (36.4-46.3); Red Blood Count 4.16 M/uL (4.63-6.08); White Blood Count 16.67 K/ul (4.8-10.8)
[2022-10-30 07:48] LABS: Estimated Average Glucose 157 mg/dl; Hemoglobin A1C 7.1 % (4.5-5.6)
[2022-10-30] MEDS: CYANOCOBALAMIN (B-12) 500 MCG TABLET PO SCH (07:53)
[2022-10-30] MEDS: UMECLIDINIUM BROMIDE 62.5MCG/BLISTER 7 PUFFS/INHALER INH SCH (07:53)
[2022-10-30] MEDS: AZITHROMYCIN 250 MG TAB PO SCH (07:54)
[2022-10-30] MEDS: SUCRALFATE 1 GM/10 ML UDC PO SCH ×4 (07:54→21:43)
[2022-10-30] MEDS: FOLIC ACID 1 MG TAB PO SCH (07:54)
[2022-10-30] MEDS: METOPROLOL TARTRATE 25 MG TAB PO SCH ×2 (07:54→21:40)
[2022-10-30] MEDS: TAMSULOSIN HCL 0.4 MG CAP PO SCH (07:54)
[2022-10-30] MEDS: DULoxetine HCL 60 MG CAP PO SCH (07:54)
[2022-10-30] MEDS: GABAPENTIN 300 MG CAP PO SCH ×3 (07:55→21:41)
[2022-10-30] MEDS: FAMOTIDINE 20 MG in SYRINGE 3 ML IV SCH ×2 (07:56→21:46)
[2022-10-30] MEDS: INSULIN ASPART PER UNIT SC SCH ×4 (08:07→21:47)
[2022-10-30 08:11] LABS: BUN Creatinine Ratio 34.7 (10-20); Calcium 9.1 mg/dl (8.5-10.1); Creatinine Clr Calc Pharmacy 111.8 ml/min; Est GFR (African American) 116.4 ml/min; Est GFR (Non-African American) 100.4 ml/min; Magnesium 2.3 mg/dl (1.7-2.4); Phosphorus 3.8 mg/dl (2.5-4.9); Potassium 4.5 mmol/L (3.5-5.1)
--- NOTE | 2022-10-30 08:12 | Pharmacy Report ---
Pharmacy Glycemic Short Note 2 - Date of Service October 30, 2022 - Glycemic Short BSG Results (Last 24 hours): 10/29/22 10/29/22 10/29/22 12:35 17:22 20:56 POC Glucose 215 H 209 H 272 H 10/30/22 10/30/22 10/30/22 00:25 02:38 03:36 POC Glucose 182 H 72 88 10/30/22 07:45 POC Glucose 170 H OUTPATIENT ANTIDIABETIC REGIMEN: * metformin 1 gm daily * A1c 6.4% 07/2022 ASSESSMENT: 10/30 * Patient received total of 81 units of insulin yesterday, of which 35 units were basal insulin * Fasting BSG 170 mg/dL - will continue with about 35 units of basal, may titrate up slightly * Patient continues on ongoing steroids solm 40 mg q 8 hr - will continue tighter novolog 10/29 * 57 year old male admitted with worsening shortness of breath. Previously on prednisone/doxycycline with no improvement. Pharmacy consulted for glycemic management. Patient started on high dose steroids, therefore anticipate steroid induced hyperglycemia * Plan to start novolog stress of 3 weight based, will add on basal insulin at lunch to help with covering ongoing steroids. Unclear if patient tolerating PO diet, will follow up with RN to determine PLAN FOR INPATIENT GLYCEMIC CONTROL: * Hold outpatient oral diabetes medications * Basal insulin * Lantus 20 units Qam * Lantus 10-15 units Qpm * Bolus insulin * NovoLog per scale ACHS or Q6hrs while NPO * Goal Range: Low 110 mg/dL - High 140 mg/dL * Correction Factor: 20 mg/dL/unit * Nutritional / Prandial insulin per carb ratio of 1 unit per 6 grams CHO consumed
[2022-10-30] MEDS: LANTUS PER UNIT CHARGE SQ SCH (08:16)
--- NOTE | 2022-10-30 08:16 | Progress Note ---
Date of Service October 30, 2022 Assessment & Plan (1) Acute and chronic respiratory failure with hypoxia: Plan: 57-year-old male with a significant past medical history of COPD presenting with acute exacerbation on chronic illness. Patient requiring increasing FiO2 and requires inpatient management for failed outpatient treatment. * Continue with Azithromycin and Rocephin for now. White count trending down. * Sputum cultures pending. * Reports doing better with nebulized budesonide and Perforomist combination as well as Incruse Ellipta. * His wheezes have greatly improved. * We will decrease the Solu-Medrol dose to 20 mg IV q8h for now. Will hold off on PO steroids as long as possible in the setting of likely gastritis. * Hopefully we will be able to get him back on his Breo tomorrow and stop the nebs. * Respiratory panel positive for Coronavirus OC43 which may be causing a degree of his respiratory symptoms. * Patient is vaccinated and boosted for COVID-19. * Continues to smoke a pack a day. Encourage cessation. * Will encourage incentive spirometry and flutter valve utilization. * Can titrate down patient's oxygen to maintain saturation between 88 and 92%. * Patient admits that he has been using 2L NC at all times at home for the last several months so we are not far from his baseline. * Echo w/o any significant findings. (2) COPD with exacerbation: Plan: * As above. (3) Hypertension: Plan: * Patient likely has degree of medication noncompliance. He did mention how he does not take his metoprolol regularly as he feels as though it drops his blood pressure. * Will decrease his metoprolol dose in half to 25 mg twice daily. * BP well controlled on currend dosing. (4) Type II diabetes mellitus: Plan: * Hold home medications and place on sliding scale. * A1c - 7.1 (5) Abdominal pain: Plan: * Presented with epigastric abdominal pain which is slightly reproducible on exam. * CT scan abdomen pelvis shows thickening of the distal stomach with question of trace adjacent inflammatory stranding. Likely consistent w/ gastritis in the setting of recent prednisone/doxy use. * Patient improved well with Maalox. * Continue Carafate/H2 francesca. * Appreciate GI input. (6) Chronic pain syndrome: Plan: * On review of the patient's record, he receives a significant amount of narcotic therapies. * Certainly will defer to his primary care provider for ongoing management, however these large doses are certainly concerning in a patient with baseline respiratory disease and prone for respiratory failure and sudden . (7) COPD (chronic obstructive pulmonary disease): Plan: * As above (8) Tobacco abuse: Plan: * Encourage cessation (9) CAD (coronary artery disease): Plan: * Continue home ASCVD Rx per typical (10) Anxiety disorder: Plan: * Continue home medications as tolerated. Admission and Anticipated Discharge Date Admission Date: October 29, 2022 Subjective Patient seen and evaluated at bedside this morning. He is finishing breakfast at this time. He states that his breathing is much improved today. He complains of some occasional epigastric discomfort which she reports responds to oral medications. He was able to complete his entire breakfast and reports that his appetite has improved. He is utilizing 2.5 L of nasal cannula right now. He reports that he has been actually using 2 L [id number] to this point so we are near his baseline. Overall, he reports feeling much better. Review of Systems Review of Systems: A complete 10 point review of systems was reviewed with the patient with pertinent positives and negatives as per history of present illness. All else were negative. Physical Exam Physical Exam: VITAL SIGNS - Vital signs and nursing notes were reviewed. GENERAL - 57-year-old male appearing his stated age who is in no acute distress. Communicates well with provider and answers questions appropriately. LUNGS -decreased air entry. Slight inspiratory wheezes much improved from yesterday. CARDIAC - RRR with S1/S2. No murmur, rubs, or gallops appreciated. No reproducible tenderness to palpation appreciated over the anterior chest wall. ABDOMEN - Abdominal contour flat without pulsations or visible masses. BS normoactive all four quadrants. No tenderness, palpable masses, hepatosplenomegaly, or ascites noted. EXTREMITIES - No clubbing or peripheral cyanosis. No pretibial edema present. +3/5 radial and dorsalis pedis pulses palpated throughout. +5/5 strength noted in UE/LE bilaterally. PSYCH - A&Ox3 and cooperates fully with examiner. Pt is very pleasant and interacts well with examiner. Results & Data ([facility]) Vital Signs (Past 12 Hours) Vital Signs Temp Pulse Pulse Resp BP Pulse Ox O2 Del Method 10/30/22 07:35 89 10/30/22 05:56 36.5 C 91 H 18 132/78 92 Nasal Cannula 10/29/22 22:05 85 10/29/22 20:40 108 H 10/30/22 05:22 79 18 92 Nasal Cannula 10/30/22 02:45 36.5 C 84 17 143/83 H 93 Nasal Cannula 10/29/22 20:45 Nasal Cannula 10/30/22 00:34 91 H 22 93 Nasal Cannula 10/29/22 23:00 36.9 C 92 H 22 134/75 95 Nasal Cannula 10/29/22 20:52 103 H 18 96 Nasal Cannula 10/29/22 20:43 37.3 C 108 H 18 130/92 93 Nasal Cannula O2 Flow Rate 10/30/22 07:35 10/30/22 05:56 2.5 10/29/22 22:05 10/29/22 20:40 10/30/22 05:22 4 10/30/22 02:45 2 10/29/22 20:45 2 10/30/22 00:34 2 10/29/22 23:00 2 10/29/22 20:52 2 10/29/22 20:43 2 PG Care Time/CCT Total # of Minutes Spent Total Time Spent with Patient: Total time spent is greater than 50% in coordination of care (as documented) at patient's floor/unit and/or counseling patient: Coding Level of Care Code 68845 SUB INP/OBS CARE 3/50MIN Diagnoses Acute and chronic respiratory failure with hypoxia J96.21 COPD with exacerbation J44.1 Hypertension I10 Type II diabetes mellitus E11.9 Abdominal pain R10.9 Chronic pain syndrome G89.4 COPD (chronic obstructive pulmonary disease) J44.9 Tobacco abuse Z72.0 CAD (coronary artery disease) I25.10 Anxiety disorder F41.9 Time Spent (min) 35
[2022-10-30] MEDS: methylPREDNISolone 20 MG in SYRINGE 0 ML IV SCH ×2 (09:03→18:17)
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
[2022-10-30] MEDS: NICOTINE 21 MG/24 HR TDSY TD SCH (11:17)
[2022-10-30] MEDS: ENOXAPARIN INJ 40 MG/0.4 ML SYR SQ SCH (11:18)
[2022-10-30] MEDS: cefTRIAXone SODIUM 2,000 MG in DEXTROSE 5% 50 ML IV SCH (11:18)
[2022-10-30] MEDS ORDERED: LANTUS PER UNIT CHARGE SQ SCH (21:00)
[2022-10-30] MEDS: ATORVASTATIN 40 MG TAB PO SCH (21:39)
[2022-10-31] MEDS: ALBUTEROL 0.083% NEBU SOLN 3 ML VIAL INH SCH ×3 (00:31→13:01)
[2022-10-31] MEDS: methylPREDNISolone 20 MG in SYRINGE 0 ML IV SCH ×2 (02:13→11:36)
[2022-10-31] MEDS: oxyCODONE HCL IR 5 MG TAB (IMMEDIATE RELEASE) PO SCH ×2 (05:09→11:38)
[2022-10-31] MEDS: BUDESONIDE 0.25 MG/2 ML VIAL (PULMICORT) INH SCH (06:51)
[2022-10-31] MEDS: FORMOTEROL 20 MCG/2 ML VIAL INH SCH (06:51)
[2022-10-31 07:52] LABS: Basophils # (auto) 0.04 K/uL (0-0.2); Basophils % (auto) 0.2 %; Hematocrit (blood only) 38.5 % (40.1-51.0); Hemoglobin 13.1 g/dl (14.0-18.0); Immature Granulocytes # (auto) 0.41 K/uL (0.00-0.02); Lymphocytes # (auto) 2.34 K/uL (1.2-3.4); Lymphocytes % (auto) 11.6 %; Mean Corpuscular Volume 91.2 fL (80.0-100.0); Mean Platelet Volume 9.6 fL (9.4-12.4); Monocytes # (auto) 0.72 K/uL (0.24-0.82); Monocytes % (auto) 3.6 %; Neutrophils # (auto) 16.71 K/uL (1.4-6.5); Neutrophils % (auto) 82.6 %; Platelet Count 400 K/uL (130-400); RDW Coefficient of Variation 15.8 % (11.5-14.5); RDW Standard Deviation 52.9 fL (36.4-46.3); Red Blood Count 4.22 M/uL (4.63-6.08); White Blood Count 20.22 K/ul (4.8-10.8)
[2022-10-31] MEDS: INSULIN ASPART PER UNIT SC SCH ×2 (08:17→12:15)
[2022-10-31] MEDS: LANTUS PER UNIT CHARGE SQ SCH (08:17)
[2022-10-31] MEDS: METOPROLOL TARTRATE 25 MG TAB PO SCH (08:18)
[2022-10-31] MEDS: TAMSULOSIN HCL 0.4 MG CAP PO SCH (08:18)
[2022-10-31] MEDS: AZITHROMYCIN 250 MG TAB PO SCH (08:18)
[2022-10-31] MEDS: FOLIC ACID 1 MG TAB PO SCH (08:18)
[2022-10-31] MEDS: DULoxetine HCL 60 MG CAP PO SCH (08:18)
[2022-10-31] MEDS: CYANOCOBALAMIN (B-12) 500 MCG TABLET PO SCH (08:18)
[2022-10-31] MEDS: GABAPENTIN 300 MG CAP PO SCH ×2 (08:19→12:57)
[2022-10-31] MEDS: NICOTINE 21 MG/24 HR TDSY TD SCH (08:19)
[2022-10-31] MEDS: SUCRALFATE 1 GM/10 ML UDC PO SCH ×2 (08:19→12:57)
[2022-10-31] MEDS: UMECLIDINIUM BROMIDE 62.5MCG/BLISTER 7 PUFFS/INHALER INH SCH (08:20)
[2022-10-31] MEDS: FAMOTIDINE 20 MG in SYRINGE 3 ML IV SCH (08:28)
[2022-10-31 08:33] LABS: Calcium 8.7 mg/dl (8.5-10.1); Magnesium 2.2 mg/dl (1.7-2.4); Potassium 4.8 mmol/L (3.5-5.1)
[2022-10-31 08:39] LABS: Creatinine Clr Calc Pharmacy 89.5 ml/min; Est GFR (Non-African American) 94.9 ml/min; Phosphorus 5.2 mg/dl (2.5-4.9)
--- NOTE | 2022-10-31 08:55 | Pharmacy Report ---
Pharmacy Glycemic Short Note 2 - Date of Service October 31, 2022 - Glycemic Short BSG Results (Last 24 hours): 10/30/22 10/30/22 10/30/22 11:29 16:43 20:42 Glucose POC Glucose 186 H 134 H 143 H 10/31/22 10/31/22 07:30 07:49 Glucose 131 H POC Glucose 130 H OUTPATIENT ANTIDIABETIC REGIMEN: * metformin 1 gm daily * A1c 6.4% 07/2022 ASSESSMENT: 10/31 * Patient received total of 49 units of insulin yesterday, of which 20 units were basal insulin * Fasting BSG 130 mg/dL - continues on solumedrol 20 mg iv q 8 hrs, plan to continue same basal insulin for now * No change to CF/CR, could consider loosening parameters if BSGs trending downward 10/30 * Patient received total of 81 units of insulin yesterday, of which 35 units were basal insulin * Fasting BSG 170 mg/dL - will continue with about 35 units of basal, may titrate up slightly * Patient continues on ongoing steroids solm 40 mg q 8 hr - will continue tighter novolog 10/29 * 57 year old male admitted with worsening shortness of breath. Previously on prednisone/doxycycline with no improvement. Pharmacy consulted for glycemic management. Patient started on high dose steroids, therefore anticipate steroid induced hyperglycemia * Plan to start novolog stress of 3 weight based, will add on basal insulin at lunch to help with covering ongoing steroids. Unclear if patient tolerating PO diet, will follow up with RN to determine PLAN FOR INPATIENT GLYCEMIC CONTROL: * Hold outpatient oral diabetes medications * Basal insulin * Lantus 20 units Qam * Bolus insulin * NovoLog per scale ACHS or Q6hrs while NPO * Goal Range: Low 110 mg/dL - High 140 mg/dL * Correction Factor: 20 mg/dL/unit * Nutritional / Prandial insulin per carb ratio of 1 unit per 6 grams CHO consumed
--- NOTE | 2022-10-31 09:32 | XRay Report ---
XR chest 2V PA/lateral CLINICAL HISTORY: f/u TECHNIQUE: 2 views of the chest were obtained. Comparison: Comparison is made to chest radiograph 10/29/2022 FINDINGS: No lines and tubes are seen. The cardiomediastinal silhouette is normal. The lungs are clear. No evid ence of pleural effusion or pneumothorax. IMPRESSION: No acute chest disease. ACT 112: Negative or not required by law. Electronically signed by: Eliseo Chu M.D. 10/31/2022 9:31 AM
[2022-10-31] MEDS: MoRPHine SULFATE CR 15 MG TABCR PO SCH (11:39)
[2022-10-31] MEDS: cefTRIAXone SODIUM 2,000 MG in DEXTROSE 5% 50 ML IV SCH (11:39)
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
[2022-10-31] MEDS: ENOXAPARIN INJ 40 MG/0.4 ML SYR SQ SCH (12:09)
== END 2022-10-31 14:45 | disposition home or self-care (01) | DRG 189 ==
LOC: ED 05:44 → EDINP 09:34 → 2N 10:20

== ENCOUNTER 2022-11-28 16:52 | Inpatient (IN) ==
--- NOTE | 2022-11-28 18:10 | XRay Report ---
XR chest 1V portable CLINICAL HISTORY: Dyspnea TECHNIQUE: Single frontal radiograph of the chest was obtained. Comparison: Comparison is made to chest radiograph 08/31/2023 FINDINGS: Fixation hardware is seen in the cervical spine. Cardiomegaly is noted. The lungs are clear. No evide nce of pleural effusion or pneumothorax. IMPRESSION: No acute abnormalities and in particular no evidence of pneumonia. ACT 112: Negative or not required by law. Electronically signed by: Eliseo Chu M.D. 11/28/2022 6:08 PM
[2022-11-28] MEDS ORDERED: ALBUT/IPRATROP 3MG/0.5MG NEB 3 ML VIAL NEB STA ×3 (18:21→21:09)
[2022-11-28] MEDS ORDERED: methylPREDNISolone 125 MG/2 ML VIAL IV STA (18:21)
[2022-11-28 19:12] LABS: Base Excess VBG 3.1 mEq/L; HCO3 VBG 30 mmol/L; Oxygen Saturation VBG 86.8 %; PCO2 VBG 56 mmHg (38-50); PO2 VBG 53 mmHg; pH VBG 7.34 (7.36-7.41)
[2022-11-28 19:20] LABS: Basophils # (auto) 0.07 K/uL (0-0.2); Basophils % (auto) 0.5 %; Eosinophils # (auto) 0.25 K/uL (0-0.50); Eosinophils % (auto) 1.9 %; Hematocrit (blood only) 34.9 % (42.0-52.0); Hemoglobin 11.7 g/dl (14.0-18.0); Immature Granulocytes # (auto) 0.23 K/uL (0.01-0.20); Immature Granulocytes % (auto) 1.7 %; Lymphocytes # (auto) 3.83 K/uL (1.2-3.4); Mean Corpuscular Hemoglobin 31.3 pg (25.0-34.0); Mean Corpuscular Hgb Conc 33.5 g/dL (32.0-36.0); Mean Corpuscular Volume 93.3 fL (80.0-100.0); Mean Platelet Volume 9.6 fL (9.4-12.4); Monocytes # (auto) 0.73 K/uL (0.11-0.59); Monocytes % (auto) 5.5 %; Neutrophils % (auto) 61.4 %; Platelet Count 382 K/uL (130-400); RDW Coefficient of Variation 14.6 % (11.5-14.5); RDW Standard Deviation 50.3 fL (36.4-46.3); Red Blood Count 3.74 M/uL (4.70-6.10); White Blood Count 13.21 K/ul (4.8-10.8)
[2022-11-28 19:32] LABS: Albumin Globulin Ratio 1.6 (0.9-2); Albumin Level 4.2 gm/dl (3.4-5.0); Bilirubin,Total 0.4 mg/dl (0.2-1.0); Calcium 9.2 mg/dl (8.5-10.1); Creatinine Clr Calc Pharmacy 91.3 ml/min; Est GFR (Non-African American) 93.2 ml/min; Globulin 2.7 gm/dl (2.5-4.0); Magnesium 1.9 mg/dl (1.7-2.4); Potassium 4.3 mmol/L (3.5-5.1); Total Protein 6.9 gm/dl (6.0-8.3)
[2022-11-28 19:39] LABS: Troponin I High Sensitivity 6.7 pg/ml (0-20)
[2022-11-28] MEDS ORDERED: OPTIRAY 350 100ml IV ONE (19:49)
[2022-11-28 20:04] LABS: Influenza A virus by PCR Negative (Neg); Influenza B virus by PCR Negative (Neg); RSV by PCR Negative (Neg); SARS CoV2 RNA(COVID-19) Ceph NEGATIVE (Negative)
--- NOTE | 2022-11-28 20:16 | CT Scan Report ---
CT soft tissue neck w con CLINICAL HISTORY: sore throat mild stridor ro epiglotitis Technique: Axial CT images of the soft tissues of the neck were obtained following intravenous admini stration of 100 cc of Omnipaque 300. Automated dose lowering techniques and/or adjustment according t o patient size were utilized for this exam. CT DOSE: 484.70 mGy.cm Comparison: None available at the time of this dictation. Findings: There are no masses or inflammatory changes seen within the soft tissues of the neck. In particular, the epiglottis is normal. The oropharynx, hypopharynx, larynx, and trachea are patent. No enlarged ly mph nodes are seen. The parotid glands, submandibular glands, and thyroid gland are unremarkable. Imaged portions of the brain parenchyma are unremarkable. The paranasal sinuses and mastoid air cell s are normal in appearance. Cervical fixation hardware is seen. Impression: No acute abnormality is seen. Particular no evidence of epiglottitis. ACT 112: Negative or not required by law. Electronically signed by: Eliseo Chu M.D. 11/28/2022 8:14 PM
[2022-11-28 21:04] LABS: INR 0.9 (0.9-1.1); Partial Thromboplastin Ratio 0.9; Partial Thromboplastin Time 25.8 Seconds (21.0-31.0); Prothrombin Time 9.4 Seconds (9.0-12.0)
--- NOTE | 2022-11-28 23:09 | ED Triage Note ---
Date of Service November 28, 2022 History of Present Illness This patient was briefly evaluated while in triage. An abbreviated physical exam was performed. This patient is a 57-year-old Male with past medical history of COPD who presents to the ED for evaluation of difficulty breathing for the past 2 days. Physical Exam VITALS: Vitals are noted on the nurse's note and reviewed by myself. GENERAL: This is a 57-year-old male, appears short of breath. HEART: Regular rate and rhythm without murmurs gallops or rubs. LUNGS: Diffuse wheezes heard throughout. NEURO: Patient was alert and oriented to person place and time. Initial orders for labs and / or imaging were placed and patient was placed in the waiting area until a bed is available. Please see further documentation for the full ED course.
--- NOTE | 2022-11-29 00:18 | Emergency Department Note ---
History of Present Illness General Chief complaint: Shortness of Breath/Dyspnea Stated complaint: SHORT OF BREATH, PASSING OUT Time Seen by Provider: 11/28/22 18:03 History of Present Illness Provider complaint: Shortness of breath syncope Onset (ago): day(s) 1 Associated symptoms: + shortness of breath and + syncope 57-year-old male with history of COPD who is actively smoking on supplemental oxygen via nasal cannula and history of CHF presents emergency department shortness of breath and syncope. Patient reports he has been having creased shortness of breath for last 2 days. Patient reports he passed out earlier today. No headaches or chest pain. No hemoptysis. No recent travel. Home Medications Medication Instructions Recorded Confirmed Type docusate sodium 100 mg capsule 100 mg PO BID PRN Constipation 07/02/19 11/28/22 History blood sugar diagnostic (Thumbs UpTouch #100 ea 02/15/21 11/28/22 Rx Verio test strips) lancets 33 gauge (Thumbs UpTouch Delica #100 ea 02/15/21 11/28/22 Rx Lancets) atorvastatin 80 mg tablet 80 mg PO HS #90 tabs 02/20/22 11/28/22 Rx epinephrine 0.3 mg/0.3 mL 0.3 mg IM DIRECTED PRN Allergic 02/21/22 11/28/22 H istory injection, auto-injector (EpiPen) Reaction gabapentin 300 mg capsule 900 mg PO TID #270 caps 04/20/22 11/28/22 Rx famotidine 20 mg tablet 20 mg PO DAILY PRN gerd #30 tabs 05/08/22 11/28/22 Rx metformin 500 mg tablet,extended 1,000 mg PO DAILY #180 tabs 05/09/22 11/28/22 Rx release 24hr tamsulosin 0.4 mg capsule 0.4 mg PO DAILY #90 caps 06/13/22 11/28/22 Rx duloxetine 60 mg capsule,delayed 60 mg PO QAM #90 caps 07/03/22 11/28/22 Rx release furosemide 40 mg tablet 40 mg PO DAILY PRN Edema #90 tabs 07/06/22 11/28/22 Rx folic acid 1 mg tablet 1 mg PO DAILY #90 tabs 08/09/22 11/28/22 Rx mecobalamin (vitamin B12) 1,000 1,000 mcg PO DAILY #90 tabs 08/09/22 11/28/22 Rx mcg chewable tablet fluticasone fur. 100 mcg-umeclid 1 inh inhalation DAILY #60 ea 09/26/22 11/28/22 Rx 62.5 mcg-vilant 25 mcg inhalat.powder (Trelegy Ellipta) ipratropium 0.5 mg-albuterol 3 mg 3 ml inhalation QID PRN Shortness 10/22/22 11/28/22 Rx (2.5 mg base)/3 mL nebulization Of Breath #180 mL soln metoprolol tartrate 50 mg tablet 25 mg PO BID #180 tabs 10/31/22 11/28/22 Rx dicyclomine 20 mg tablet 20 mg PO BID PRN abdominal 11/06/22 11/28/22 Rx discomfort #20 tabs pantoprazole 40 mg tablet,delayed 40 mg PO BID #60 tabs 11/06/22 11/28/22 Rx release (Protonix) pantoprazole 40 mg tablet,delayed 40 mg PO DAILY #14 tabs 11/06/22 11/28/22 Rx release (Protonix) sucralfate 1 gram tablet (Carafate) 1 g PO QID #120 tabs 11/06/22 11/28/22 Rx albuterol sulfate 90 mcg/actuation 2 puff inhalation Q4H PRN Wheezing 11/27/22 11/28/22 Rx aerosol inhaler #8.5 grams morphine 15 mg tablet,extended 15 mg PO Q12H #60 tabs 11/27/22 11/28/22 Rx release oxycodone 15 mg tablet 15 mg PO Q6H #90 tabs 11/27/22 11/28/22 Rx Allergies Allergy/AdvReac Type Severity Reaction Status Date / Time bee venom protein (honey bee) Allergy Severe PASSES OUT Verified 11/28/22 18:12 naproxen Allergy Intermediate SEVERE RASH Verified 11/28/22 18:12 tramadol AdvReac Intermediate GI SYMPTOMS Verified 11/28/22 18:12 Past Med/Surg History Medical History Abdominal pain Abnormal abdominal CT scan Abnormal CT scan, chest Acute and chronic respiratory failure with hypoxia Anaphylactic reaction Anemia Anxiety disorder Arthritis of right shoulder region Back pain Bilateral carpal tunnel syndrome Chest pain Chronic bronchitis Chronic hypoxemic respiratory failure Chronic narcotic use Chronic obstructive pulmonary disease Chronic pain Chronic pain syndrome COPD (chronic obstructive pulmonary disease) COPD exacerbation COPD with exacerbation COPD, mild Diastolic CHF, acute on chronic Dyshidrotic eczema Excessive daytime sleepiness Folate deficiency Gait disturbance GERD (gastroesophageal reflux disease) H/O supraventricular tachycardia History of non-ST elevation myocardial infarction (NSTEMI) Hypercholesterolemia Hyperlipemia Hypertension Insomnia Internal hemorrhoids Lumbar radiculopathy Male erectile disorder of organic origin Mitral valve disorder MVP (mitral valve prolapse) Neural foraminal stenosis of cervical spine Nicotine dependence NSTEMI (non-ST elevated myocardial infarction) SAUL (obstructive sleep apnea) Pancytopenia Polyneuropathy Seborrheic keratosis Secondary pulmonary hypertension Tobacco abuse Tobacco abuse counseling Transaminitis Type II diabetes mellitus Ulnar neuropathy at elbow Vitamin B12 deficiency Surgical History H/O cardiac catheterization History of cholecystectomy Hx of appendectomy Hx of arthroscopic knee surgery S/P appy S/P cervical spinal fusion S/P tonsillectomy and adenoidectomy Family History Father Hypertension Heart disease age 37 - "heart attack" Brother Hypertension Coronary heart disease Aunt Breast cancer Mother Hypertension Thyroid disease Other Allergies Cancer Diabetes No significant family history Denies family history of Tuberculosis Ovarian cancer Prostate cancer Emphysema, unspecified Colorectal cancer Lung disease Asthma Social History Smoking Status: Current every day smoker Tobacco Type: Cigarettes Age Started Using Tobacco: 19; packs per day: 1; Cigarettes Per Day: 1 Pack; Second Hand Exposure: No; Hx Alcohol Use: Yes Alcohol type: beer and hard liquor Hx Substance Use: No Preferred Language: Armenian Communication Ability: Effective Visual Impairment: No Limitations Hearing Ability: Normal Surgical Coder Required: No Beliefs That Will Affect Care: None marital status: Current Living Situation: Spouse and Family Current Living Situation Comment: and Son current occupational status: disabled Feels Safe at Home: Yes Childhood Exposure to Second-Hand Smoke: Yes caffeine: Yes Dental Care, Regularly: No Physical Activity Frequency: Does not Exercise Seatbelt Use: always Sunscreen Use: No Assistive Devices: Cane Physical Exam Vital Signs Vital Signs - 24 hr 11/28/22 17:23 11/28/22 18:15 11/28/22 18:41 Temperature 36.8 C Temperature Source Temporal Artery Scan Pulse Rate 88 83 80 Pulse Rate [Apical] Pulse Rate from SpO2 Sensor Respiratory Rate 20 Respiratory Effort / Characteristics Non-Labored Spontaneous Respiratory Depth Normal Respiratory Pattern Regular Blood Pressure 129/75 Blood Pressure [Left Arm] Blood Pressure Mean 93 Blood Pressure Mean [Left Arm] Blood Pressure Position Sitting Pulse Oximetry 93 96 Oxygen Delivery Method Room Air Nasal Cannula Oxygen Flow Rate 2 Sepsis Recent Fever Within 48 Hours No Sepsis New/Unexplained Change in Mental Status N/A Sepsis Action Taken by Nursing No Action Required 11/28/22 18:42 11/28/22 20:21 11/28/22 21:15 Temperature Temperature Source Pulse Rate Pulse Rate [Apical] 83 Pulse Rate from SpO2 Sensor Respiratory Rate 20 Respiratory Effort / Characteristics Respiratory Depth Respiratory Pattern Blood Pressure Blood Pressure [Left Arm] 134/81 138/78 Blood Pressure Mean Blood Pressure Mean [Left Arm] 98 98 Blood Pressure Position Pulse Oximetry 96 94 Oxygen Delivery Method Nasal Cannula Nasal Cannula Oxygen Flow Rate 2 2 Sepsis Recent Fever Within 48 Hours Sepsis New/Unexplained Change in Mental Status Sepsis Action Taken by Nursing 11/28/22 20:25 11/28/22 22:23 11/29/22 00:00 Temperature Temperature Source Pulse Rate 88 Pulse Rate [Apical] Pulse Rate from SpO2 Sensor Respiratory Rate Respiratory Effort / Characteristics Labored Respiratory Depth Respiratory Pattern Blood Pressure 115/75 Blood Pressure [Left Arm] Blood Pressure Mean 88 Blood Pressure Mean [Left Arm] Blood Pressure Position Pulse Oximetry Oxygen Delivery Method Oxygen Flow Rate Sepsis Recent Fever Within 48 Hours Sepsis New/Unexplained Change in Mental Status Sepsis Action Taken by Nursing 11/29/22 00:00 Temperature Temperature Source Pulse Rate 85 Pulse Rate [Apical] Pulse Rate from SpO2 Sensor 85 Respiratory Rate 15 Respiratory Effort / Characteristics Respiratory Depth Respiratory Pattern Blood Pressure Blood Pressure [Left Arm] Blood Pressure Mean Blood Pressure Mean [Left Arm] Blood Pressure Position Pulse Oximetry 96 Oxygen Delivery Method Room Air Oxygen Flow Rate Sepsis Recent Fever Within 48 Hours Sepsis New/Unexplained Change in Mental Status Sepsis Action Taken by Nursing Physical Exam GENERAL: Patient appears lethargic HENT: Exam performed. - Head: Normocephalic and atraumatic. - Right Ear: External ear normal. No mastoid tenderness. - Left Ear: External ear normal. No mastoid tenderness. - Mouth/Throat: The oropharynx is clear and moist. No trismus in the jaw. No dental abscesses or uvula swelling. No oropharyngeal exudate or tonsillar abscesses. NECK: Normal range of motion. Neck supple. No JVD present. CV: Normal rate, regular rhythm, normal heart sounds and intact distal pulses. There is no peripheral edema. Palpable radial pulses bue. PULM/CHEST: Expiratory wheezes bilaterally. ABD: The abdomen is soft. LYMPH: No cervical adenopathy. NEURO: Motor and sensation grossly intact. SKIN: Skin is warm and dry. He is not diaphoretic. 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 Behavior is normal. Judgment and thought content normal. Course Course 180: The patient was evaluated in room B5. A complete history and physical exam was performed Administered Medications Discontinued Medications Albuterol (Albut/Ipratrop 3mg/0.5mg Neb 3 Ml Vial) 3 ml NEB NOW STA; Protocol Stop: 11/28/22 18:22 Last Admin: 11/28/22 18:42 Dose: 3 ml Documented By: ML Albuterol (Albut/Ipratrop 3mg/0.5mg Neb 3 Ml Vial) 3 ml NEB NOW STA; Protocol Stop: 11/28/22 21:09 Last Admin: 11/28/22 21:16 Dose: 3 ml Documented By: ML Albuterol (Albut/Ipratrop 3mg/0.5mg Neb 3 Ml Vial) 3 ml NEB NOW STA; Protocol Stop: 11/28/22 21:10 Last Admin: 11/28/22 21:20 Dose: 3 ml Documented By: LINDSAY Ioversol (Optiray 350 100ml) 85 ml IV ONCE ONE Stop: 11/28/22 19:50 Last Admin: 11/28/22 19:51 Dose: 85 ml Documented By: TERRENCE Methylprednisolone (Methylprednisolone 125 Mg/2 Ml Vial) 125 mg IV NOW STA Stop: 11/28/22 18:22 Last Admin: 11/28/22 18:42 Dose: 125 mg Documented By: LINDSAY Medical Decision Making Laboratory Data Attestation: I reviewed the patient's lab results. 11/28/22 18:35 11/28/22 18:35 Lab Results 11/28/22 11/28/22 11/28/22 Range/Units 18:35 18:35 18:35 WBC 13.21 H (4.8-10.8) K/ul RBC 3.74 L (4.70-6.10) M/uL Hgb 11.7 L (14.0-18.0) g/dl Hct 34.9 L (42.0-52.0) % MCV 93.3 (80.0-100.0) fL MCH 31.3 (25.0-34.0) pg MCHC 33.5 (32.0-36.0) g/dL RDW Std Deviation 50.3 H (36.4-46.3) fL RDW Coeff of Liliya 14.6 H (11.5-14.5) % Plt Count 382 (130-400) K/uL MPV 9.6 (9.4-12.4) fL Immature Gran % (Auto) 1.7 % Neut % (Auto) 61.4 % Lymph % (Auto) 29.0 % Mcpherson % (Auto) 5.5 % Eos % (Auto) 1.9 % Baso % (Auto) 0.5 % Neut # (Auto) 8.10 H (1.40-6.50) K/uL Lymph # (Auto) 3.83 H (1.2-3.4) K/uL Mcpherson # (Auto) 0.73 H (0.11-0.59) K/uL Eos # (Auto) 0.25 (0-0.50) K/uL Baso # (Auto) 0.07 (0-0.2) K/uL Immature Gran # (Auto) 0.23 H (0.01-0.20) K/uL PT INR APTT PTT Ratio VBG pH (7.36-7.41) VBG pCO2 (38-50) mmHg VBG pO2 mmHg VBG HCO3 mmol/L VBG O2 Saturation % VBG Base Excess mEq/L Carboxyhemoglobin % THgb Sodium 132 L (136-145) mmol/L Potassium 4.3 (3.5-5.1) mmol/L Chloride 99 (98-107) mmol/L Carbon Dioxide 29 (21-32) mmol/L Anion Gap 4 (3-11) BUN 18 (6-23) mg/dl Creatinine 0.90 (0.6-1.4) mg/dl Est Cr Clr Drug Dosing 91.3 ml/min Est GFR ( Amer) 108.0 ml/min Est GFR (Non-Af Amer) 93.2 ml/min BUN/Creatinine Ratio 20.0 (10-20) Glucose 110 H (70-99(Fasting)) mg/dl Calcium 9.2 (8.5-10.1) mg/dl Magnesium 1.9 (1.7-2.4) mg/dl Total Bilirubin 0.4 (0.2-1.0) mg/dl AST 18 (13-39) U/L ALT 19 (7-52) U/L Alkaline Phosphatase 98 (34-104) U/L Troponin I High Sens 6.7 (0-20) pg/ml B-Natriuretic Peptide 94 (0-100) pg/ml Total Protein 6.9 (6.0-8.3) gm/dl Albumin 4.2 (3.4-5.0) gm/dl Globulin 2.7 (2.5-4.0) gm/dl Albumin/Globulin Ratio 1.6 (0.9-2) SARS-CoV-2 (PCR) (Negative) Influenza Type A (PCR) (Neg) Influenza Type B (PCR) (Neg) RSV (RT-PCR) (Neg) Group A Strep (PCR) (NotDetected) 11/28/22 11/28/22 11/28/22 Range/Units 18:35 18:35 18:35 WBC (4.8-10.8) K/ul RBC (4.70-6.10) M/uL Hgb (14.0-18.0) g/dl Hct (42.0-52.0) % MCV (80.0-100.0) fL MCH (25.0-34.0) pg MCHC (32.0-36.0) g/dL RDW Std Deviation (36.4-46.3) fL RDW Coeff of Liliya (11.5-14.5) % Plt Count (130-400) K/uL MPV (9.4-12.4) fL Immature Gran % (Auto) % Neut % (Auto) % Lymph % (Auto) % Mcpherson % (Auto) % Eos % (Auto) % Baso % (Auto) % Neut # (Auto) (1.40-6.50) K/uL Lymph # (Auto) (1.2-3.4) K/uL Mcpherson # (Auto) (0.11-0.59) K/uL Eos # (Auto) (0-0.50) K/uL Baso # (Auto) (0-0.2) K/uL Immature Gran # (Auto) (0.01-0.20) K/uL PT Cancelled INR Cancelled APTT Cancelled PTT Ratio Cancelled VBG pH 7.34 L (7.36-7.41) VBG pCO2 56 H (38-50) mmHg VBG pO2 53 mmHg VBG HCO3 30 mmol/L VBG O2 Saturation 86.8 % VBG Base Excess 3.1 mEq/L Carboxyhemoglobin % THgb Sodium (136-145) mmol/L Potassium (3.5-5.1) mmol/L Chloride (98-107) mmol/L Carbon Dioxide (21-32) mmol/L Anion Gap (3-11) BUN (6-23) mg/dl Creatinine (0.6-1.4) mg/dl Est Cr Clr Drug Dosing ml/min Est GFR ( Amer) ml/min Est GFR (Non-Af Amer) ml/min BUN/Creatinine Ratio (10-20) Glucose (70-99(Fasting)) mg/dl Calcium (8.5-10.1) mg/dl Magnesium Cancelled (1.7-2.4) mg/dl Total Bilirubin (0.2-1.0) mg/dl AST (13-39) U/L ALT (7-52) U/L Alkaline Phosphatase (34-104) U/L Troponin I High Sens (0-20) pg/ml B-Natriuretic Peptide (0-100) pg/ml Total Protein (6.0-8.3) gm/dl Albumin (3.4-5.0) gm/dl Globulin (2.5-4.0) gm/dl Albumin/Globulin Ratio (0.9-2) SARS-CoV-2 (PCR) (Negative) Influenza Type A (PCR) (Neg) Influenza Type B (PCR) (Neg) RSV (RT-PCR) (Neg) Group A Strep (PCR) (NotDetected) 11/28/22 11/28/22 11/28/22 Range/Units 18:39 19:05 20:05 WBC (4.8-10.8) K/ul RBC (4.70-6.10) M/uL Hgb (14.0-18.0) g/dl Hct (42.0-52.0) % MCV (80.0-100.0) fL MCH (25.0-34.0) pg MCHC (32.0-36.0) g/dL RDW Std Deviation (36.4-46.3) fL RDW Coeff of Liliya (11.5-14.5) % Plt Count (130-400) K/uL MPV (9.4-12.4) fL Immature Gran % (Auto) % Neut % (Auto) % Lymph % (Auto) % Mcpherson % (Auto) % Eos % (Auto) % Baso % (Auto) % Neut # (Auto) (1.40-6.50) K/uL Lymph # (Auto) (1.2-3.4) K/uL Mcpherson # (Auto) (0.11-0.59) K/uL Eos # (Auto) (0-0.50) K/uL Baso # (Auto) (0-0.2) K/uL Immature Gran # (Auto) (0.01-0.20) K/uL PT 9.4 INR 0.9 APTT 25.8 PTT Ratio 0.9 VBG pH (7.36-7.41) VBG pCO2 (38-50) mmHg VBG pO2 mmHg VBG HCO3 mmol/L VBG O2 Saturation % VBG Base Excess mEq/L Carboxyhemoglobin % THgb Sodium (136-145) mmol/L Potassium (3.5-5.1) mmol/L Chloride (98-107) mmol/L Carbon Dioxide (21-32) mmol/L Anion Gap (3-11) BUN (6-23) mg/dl Creatinine (0.6-1.4) mg/dl Est Cr Clr Drug Dosing ml/min Est GFR ( Amer) ml/min Est GFR (Non-Af Amer) ml/min BUN/Creatinine Ratio (10-20) Glucose (70-99(Fasting)) mg/dl Calcium (8.5-10.1) mg/dl Magnesium (1.7-2.4) mg/dl Total Bilirubin (0.2-1.0) mg/dl AST (13-39) U/L ALT (7-52) U/L Alkaline Phosphatase (34-104) U/L Troponin I High Sens (0-20) pg/ml B-Natriuretic Peptide (0-100) pg/ml Total Protein (6.0-8.3) gm/dl Albumin (3.4-5.0) gm/dl Globulin (2.5-4.0) gm/dl Albumin/Globulin Ratio (0.9-2) SARS-CoV-2 (PCR) NEGATIVE (Negative) Influenza Type A (PCR) Negative (Neg) Influenza Type B (PCR) Negative (Neg) RSV (RT-PCR) Negative (Neg) Group A Strep (PCR) NOT DETECTED (NotDetected) 11/28/22 11/28/22 Range/Units 21:19 21:19 WBC (4.8-10.8) K/ul RBC (4.70-6.10) M/uL Hgb (14.0-18.0) g/dl Hct (42.0-52.0) % MCV (80.0-100.0) fL MCH (25.0-34.0) pg MCHC (32.0-36.0) g/dL RDW Std Deviation (36.4-46.3) fL RDW Coeff of Liliya (11.5-14.5) % Plt Count (130-400) K/uL MPV (9.4-12.4) fL Immature Gran % (Auto) % Neut % (Auto) % Lymph % (Auto) % Mcpherson % (Auto) % Eos % (Auto) % Baso % (Auto) % Neut # (Auto) (1.40-6.50) K/uL Lymph # (Auto) (1.2-3.4) K/uL Mcpherson # (Auto) (0.11-0.59) K/uL Eos # (Auto) (0-0.50) K/uL Baso # (Auto) (0-0.2) K/uL Immature Gran # (Auto) (0.01-0.20) K/uL PT INR APTT PTT Ratio VBG pH (7.36-7.41) VBG pCO2 (38-50) mmHg VBG pO2 mmHg VBG HCO3 mmol/L VBG O2 Saturation % VBG Base Excess mEq/L Carboxyhemoglobin 7.8 % THgb Sodium (136-145) mmol/L Potassium (3.5-5.1) mmol/L Chloride (98-107) mmol/L Carbon Dioxide (21-32) mmol/L Anion Gap (3-11) BUN (6-23) mg/dl Creatinine (0.6-1.4) mg/dl Est Cr Clr Drug Dosing ml/min Est GFR ( Amer) ml/min Est GFR (Non-Af Amer) ml/min BUN/Creatinine Ratio (10-20) Glucose (70-99(Fasting)) mg/dl Calcium (8.5-10.1) mg/dl Magnesium (1.7-2.4) mg/dl Total Bilirubin (0.2-1.0) mg/dl AST (13-39) U/L ALT (7-52) U/L Alkaline Phosphatase (34-104) U/L Troponin I High Sens 6.4 (0-20) pg/ml B-Natriuretic Peptide (0-100) pg/ml Total Protein (6.0-8.3) gm/dl Albumin (3.4-5.0) gm/dl Globulin (2.5-4.0) gm/dl Albumin/Globulin Ratio (0.9-2) SARS-CoV-2 (PCR) (Negative) Influenza Type A (PCR) (Neg) Influenza Type B (PCR) (Neg) RSV (RT-PCR) (Neg) Group A Strep (PCR) (NotDetected) Imaging Data Attestation: I personally reviewed and interpreted this imaging study as follows: My Impression: Chest x-ray negative. Airway clear. No pneumothorax. No consolidation. No cardiomegaly or cephalization.. No free air under the diaphragm. No fractures of the skeletal structures. Radiologist's Impression: Chest X-Ray 11/28/22 17:24 XR chest 1V portable CLINICAL HISTORY: Dyspnea TECHNIQUE: Single frontal radiograph of the chest was obtained. Comparison: Comparison is made to chest radiograph 08/31/2023 FINDINGS: Fixation hardware is seen in the cervical spine. Cardiomegaly is noted. The lungs are clear. No evidence of pleural effusion or pneumothorax. IMPRESSION: No acute abnormalities and in particular no evidence of pneumonia. ACT 112: Negative or not required by law. Electronically signed by: Eliseo Chu M.D. 11/28/2022 6:08 PM Soft Tissue Neck CT 11/28/22 18:18 CT soft tissue neck w con CLINICAL HISTORY: sore throat mild stridor ro epiglotitis Technique: Axial CT images of the soft tissues of the neck were obtained following intravenous administration of 100 cc of Omnipaque 300. Automated dose lowering techniques and/or adjustment according to patient size were utilized for this exam. CT DOSE: 484.70 mGy.cm Comparison: None available at the time of this dictation. Findings: There are no masses or inflammatory changes seen within the soft tissues of the neck. In particular, the epiglottis is normal. The oropharynx, hypopharynx, larynx, and trachea are patent. No enlarged lymph nodes are seen. The parotid glands, submandibular glands, and thyroid gland are unremarkable. Imaged portions of the brain parenchyma are unremarkable. The paranasal sinuses and mastoid air cells are normal in appearance. Cervical fixation hardware is seen. Impression: No acute abnormality is seen. Particular no evidence of epiglottitis. ACT 112: Negative or not required by law. Electronically signed by: Eliseo Chu M.D. 11/28/2022 8:14 PM ECG Data Attestation: I personally reviewed and interpreted this ECG as follows: Additional Comments: EKG #1 at 1833: Sinus rhythm with rate of 81. [place] QRS and QTc intervals are within normal limits. No ST elevation or ST depression. There is baseline wander and artifact. EKG #2 at 1922: Sinus rhythm with a rate of 80. NJ QRS and QTc intervals within normal limits. No ST elevation or ST depression. [facility] [place] Narrative Cardiac monitoring: An order was placed for continuous cardiac monitoring. The monitor shows a rate of 80 with sinus rhythm interpreted by me Vital signs stable. Labs show leukocytosis of 13.2 hemoglobin 11.7 VBG shows venous pH 7.34 with a venous PCO2 of 56 carboxyhemoglobin 7.8. Troponin x2 is negative. CT soft tissue neck shows no evidence of epiglottitis. CT of the head within normal limits. Patient remains very lethargic and drowsy. I asked him if he took any additional doses of his home morphine dosage and he states no. Patient is still wheezing. Patient will be admitted to the [facility] team for COPD exacerbation and syncope Dr. Rahman team notified Impression & Plan COPD exacerbation, Syncope Discharge Plan Visit Data Chief Complaint: Shortness of Breath/Dyspnea Stated Complaint: SHORT OF BREATH, PASSING OUT ED Provider: Tyler Rahman Discharge Problem: COPD exacerbation, Syncope Patient Disposition: Being Evaluated by Hospitalist Forms Stand Alone Forms: My [facility] Prescriptions Prescriptions: No Action atorvastatin 80 mg tablet 80 mg PO HS Qty: 90 3RF gabapentin 300 mg capsule 900 mg PO TID Qty: 270 5RF metformin 500 mg tablet extended release 24hr 1,000 mg PO DAILY Qty: 180 3RF Rx Instructions: take with breakfast. tamsulosin 0.4 mg capsule 0.4 mg PO DAILY Qty: 90 3RF duloxetine 60 mg capsule,delayed release(DR/EC) 60 mg PO QAM Qty: 90 3RF furosemide 40 mg tablet 40 mg PO DAILY PRN (Reason: Edema) Qty: 90 3RF Rx Instructions: TAKE 1 TABLET BY MOUTH DAILY NEEDED FOR WEIGHT GAIN folic acid 1 mg tablet 1 mg PO DAILY Qty: 90 3RF mecobalamin (vitamin B12) 1,000 mcg tablet,chewable 1,000 mcg PO DAILY Qty: 90 3RF Trelegy Ellipta 100-62.5-25 mcg blister with device 1 inh inhalation DAILY Qty: 60 6RF albuterol sulfate 90 mcg/actuation HFA aerosol inhaler 2 puff INHALATION Q4H PRN (Reason: Wheezing) Qty: 8.5 11RF morphine 15 mg tablet extended release 15 mg PO Q12H Qty: 60 0RF oxycodone 15 mg tablet 15 mg PO Q6H Qty: 90 0RF famotidine 20 mg tablet 20 mg PO DAILY PRN (Reason: gerd) Qty: 30 5RF sucralfate [Carafate] 1 gram tablet 1 g PO QID Qty: 120 0RF pantoprazole [Protonix] 40 mg tablet,delayed release (DR/EC) 40 mg PO BID Qty: 60 2RF docusate sodium 100 mg capsule 100 mg PO BID PRN (Reason: Constipation) ipratropium-albuterol 0.5 mg-3 mg(2.5 mg base)/3 mL solution for nebulization 3 ml Inhalation QID PRN (Reason: Shortness Of Breath) Qty: 180 3RF (DME) OneTouch Verio test strips Strip See Rx Instructions .ROUTE .MEDSUPPLY Qty: 100 1RF Rx Instructions: As directed - check sugars 1x each day. (DME) lancets [OneTouch Delica Lancets] 33 gauge misc See Rx Instructions .ROUTE .MEDSUPPLY Qty: 100 1RF Rx Instructions: As directed - check blood sugars 1x daily. epinephrine [EpiPen] 0.3 mg/0.3 mL auto-injector 0.3 mg IM DIRECTED PRN (Reason: Allergic Reaction) metoprolol tartrate 50 mg tablet 25 mg PO BID Qty: 180 3RF pantoprazole [Protonix] 40 mg tablet,delayed release (DR/EC) 40 mg PO DAILY Qty: 14 0RF dicyclomine 20 mg tablet 20 mg PO BID PRN (Reason: abdominal discomfort) Qty: 20 0RF Referrals Referrals: Mansoor Zhao MD [Primary Care Provider] -
[2022-11-29] MEDS ORDERED: ONDANSETRON INJ 2 MG/ML 2 ML VIAL IV PRN (03:38)
[2022-11-29] MEDS ORDERED: ALBUT/IPRATROP 3MG/0.5MG NEB 3 ML VIAL INH PRN (03:38)
[2022-11-29] MEDS ORDERED: ALBUTEROL HFA 8 GM INHALER INH PRN (03:38)
[2022-11-29] MEDS ORDERED: ACETAMINOPHEN 325 MG TAB PO PRN (03:38)
[2022-11-29] MEDS ORDERED: DOCUSATE SODIUM 100 MG CAP PO PRN (03:38)
[2022-11-29] MEDS: PANTOprazole 40 MG TAB PO SCH ×3 (04:33→20:05)
[2022-11-29] MEDS: METOPROLOL TARTRATE 25 MG TAB PO SCH ×3 (04:33→20:05)
[2022-11-29 04:34] LABS: Thyroid Stimulating Hormone 0.176 uIu/ml (0.300-4.500)
--- NOTE | 2022-11-29 04:45 | History & Physical Report ---
Date of Service November 29, 2022 Assessment & Plan (1) COPD exacerbation: (2) Syncope: (3) Failure of outpatient treatment: (4) Hypertension: (5) MVP (mitral valve prolapse): (6) GERD (gastroesophageal reflux disease): (7) Vitamin B12 deficiency: (8) Tobacco abuse: (9) Anxiety disorder: (10) Chronic pain: (11) Hypercholesterolemia: (12) Insomnia: (13) Polyneuropathy: (14) Secondary pulmonary hypertension: (15) Type II diabetes mellitus: (16) Sensorineural hearing loss (SNHL) of both ears: (17) CAD (coronary artery disease): (18) COVID-19: (19) Acute and chronic respiratory failure with hypoxia: Plan Acute and chronic respiratory failure with hypoxia/COPD exa cerbation/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 He continues to smoke tobacco about 1 pack/day, during this entire time, in spite of requiring nasal cannula oxygen at home He was given the following by the ED: DuoNeb, Solu-Medrol 125 mg IV, and 2 additional DuoNebs. Methylprednisolone 40 mg IV every 8 hours Duonebs every 4 hours while awake and every 2 hours when necessary. Continue Jose Juan Muir Advised the patient to work on tobacco cessation, but he has no interest in doing so Started on doxycycline 100 mg IV twice daily as noted below Hoarseness/GERD- Differential including viral, GI, tobacco irritation, postnasal drip and others Patient did have a negative CT of the soft tissue of the neck in the ED this evening Discussed tobacco cessation counseling Continue pantoprazole 40 mg p.o. twice daily and change famotidine from as needed to at bedtime Continue Carafate 1 g p.o. 4 times daily Patient reports an upcoming appointment with Dr. Conti scheduled for 12/07 Direct visualization by GI or ENT may be indicated regarding hoarseness and uncontrolled reflux Diabetes mellitus- Patient reports that his blood sugars are often in the 60s to 70s in the morning Hold metformin 1000 mg p.o. 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 Order thyroid antibody panel and thyroid ultrasound May need thyroid uptake scan May be contributing to fatigue, hoarseness Severe generalized fatigue- The patient [place] 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 twice daily as opposed to oral Hyperlipidemia- Continue atorvastatin 80 mg at bedtime Hypertension- Continue metoprolol tartrate 25 mg p.o. twice daily Hold furosemide as needed Chronic pain/anxiety/neuropathy- Continue duloxetine 60 mg every morning, gabapentin 900 mg p.o. 3 times daily, morphine extended release 15 mg p.o. every 12 hours, oxycodone 15 mg p.o. every 6 hours while awake BPH- Continue tamsulosin 0.4 mg, changed to bedtime, as this may be contributing to orthostatic symptoms in the morning Admission and Anticipated Discharge Date Admission Date: November 29, 2022 History of Present Illness Chief Complaint: The patient presents to the emergency department with worsening shortness of b reath over the past 2 days, and a near syncopal episode while at the store this morning, where he had to lean against the wall to keep from passing out. He also reports being hoarse over the past few days. Primary Care Provider: Mansoor Zhao MD The patient is a 57-year-old male with oxygen dependent COPD, lumbar radiculopathy, hypertension, GERD, mitral valve prolapse, B12 deficiency, history of SVT, tobacco abuse, anxiety disorder, bilateral carpal tunnel syndrome, dyshidrotic eczema, hypercholesterolemia, insomnia, internal hemorrhoids, cervical spine neuroforaminal stenosis, polyneuropathy, secondary pulmonary hypertension, diabetes mellitus type 2, SNHL bilaterally, CAD, COVID- 19 infection, chronic hypoxemic respiratory failure, chronic narcotic use, and right greater than left bilateral knee osteoarthritis. The patient presents to the emergency department after a near syncopal episode while out shopping at a store this morning, where had to lean against the wall to keep from passing out. He does continue to smoke 1 pack/day, in spite of being on supplemental oxygen via nasal cannula. He reports that he has continued to be short of breath since his admission from [facility]-10/[facility]/2022, having never got back to his baseline. As noted, he has continued to smoke during this time Allergies Allergy/AdvReac Type Severity Reaction Status Date / Time bee venom protein (honey bee) Allergy Severe PASSES OUT Verified 11/28/22 18:12 naproxen Allergy Intermediate SEVERE RASH Verified 11/28/22 18:12 tramadol AdvReac Intermediate GI SYMPTOMS Verified 11/28/22 18:12 Home Medications Medication Instructions Recorded Confirmed Type docusate sodium 100 mg capsule 100 mg PO BID PRN Constipation 07/02/19 11/28/22 History blood sugar diagnostic (OneTouch #100 ea 02/15/21 11/28/22 Rx Verio test strips) lancets 33 gauge (RavtiTouch Delica #100 ea 02/15/21 11/28/22 Rx Lancets) atorvastatin 80 mg tablet 80 mg PO HS #90 tabs 02/20/22 11/28/22 Rx epinephrine 0.3 mg/0.3 mL 0.3 mg IM DIRECTED PRN Allergic 02/21/22 11/28/22 History injection, auto-injector (EpiPen) Reaction gabapentin 300 mg capsule 900 mg PO TID #270 caps 04/20/22 11/28/22 Rx famotidine 20 mg tablet 20 mg PO DAILY PRN gerd #30 tabs 05/08/22 11/28/22 Rx metformin 500 mg tablet,extended 1,000 mg PO DAILY #180 tabs 05/09/22 11/28/22 Rx release 24hr tamsulosin 0.4 mg capsule 0.4 mg PO DAILY #90 caps 06/13/22 11/28/22 Rx duloxetine 60 mg capsule,delayed 60 mg PO QAM #90 caps 07/03/22 11/28/22 Rx release furosemide 40 mg tablet 40 mg PO DAILY PRN Edema #90 tabs 07/06/22 11/28/22 Rx folic acid 1 mg tablet 1 mg PO DAILY #90 tabs 08/09/22 11/28/22 Rx mecobalamin (vitamin B12) 1,000 1,000 mcg PO DAILY #90 tabs 08/09/22 11/28/22 Rx mcg chewable tablet fluticasone fur. 100 mcg-umeclid 1 inh inhalation DAILY #60 ea 09/26/22 11/28/22 Rx 62.5 mcg-vilant 25 mcg inhalat.powder (Trelegy Ellipta) ipratropium 0.5 mg-albuterol 3 mg 3 ml inhalation QID PRN Shortness 10/22/22 11/28/22 Rx (2.5 mg base)/3 mL nebulization Of Breath #180 mL soln metoprolol tartrate 50 mg tablet 25 mg PO BID #180 tabs 10/31/22 11/28/22 Rx dicyclomine 20 mg tablet 20 mg PO BID PRN abdominal 11/06/22 11/28/22 Rx discomfort #20 tabs pantoprazole 40 mg tablet,delayed 40 mg PO BID #60 tabs 11/06/22 11/28/22 Rx release (Protonix) pantoprazole 40 mg tablet,delayed 40 mg PO DAILY #14 tabs 11/06/22 11/28/22 Rx release (Protonix) sucralfate 1 gram tablet (Carafate) 1 g PO QID #120 tabs 11/06/22 11/28/22 Rx albuterol sulfate 90 mcg/actuation 2 puff inhalation Q4H PRN Wheezing 11/27/22 11/28/22 Rx aerosol inhaler #8.5 grams morphine 15 mg tablet,extended 15 mg PO Q12H #60 tabs 11/27/22 11/28/22 Rx release oxycodone 15 mg tablet 15 mg PO Q6H #90 tabs 11/27/22 11/28/22 Rx Past Med/Surg History Medical History (Updated 11/29/22 @ 04:56 by Johny García MD) Abdominal pain Abnormal abdominal CT scan Abnormal CT scan, chest Acute and chronic respiratory failure with hypoxia Anaphylactic reaction Anemia Anxiety disorder Arthritis of right shoulder region Back pain Bilateral carpal tunnel syndrome Chest pain Chronic bronchitis Chronic hypoxemic respiratory failure Chronic narcotic use Chronic obstructive pulmonary disease Chronic pain Chronic pain syndrome COPD (chronic obstructive pulmonary disease) COPD exacerbation COPD with exacerbation COPD, mild Diastolic CHF, acute on chronic Dyshidrotic eczema Excessive daytime sleepiness Folate deficiency Gait disturbance GERD (gastroesophageal reflux disease) H/O supraventricular tachycardia History of non-ST elevation myocardial infarction (NSTEMI) Hypercholesterolemia Hyperlipemia Hypertension Insomnia Internal hemorrhoids Lumbar radiculopathy Male erectile disorder of organic origin Mitral valve disorder MVP (mitral valve prolapse) Neural foraminal stenosis of cervical spine Nicotine dependence NSTEMI (non-ST elevated myocardial infarction) SAUL (obstructive sleep apnea) Pancytopenia Polyneuropathy Seborrheic keratosis Secondary pulmonary hypertension Tobacco abuse Tobacco abuse counseling Transaminitis Type II diabetes mellitus Ulnar neuropathy at elbow Vitamin B12 deficiency Surgical History H/O cardiac catheterization History of cholecystectomy Hx of appendectomy Hx of arthroscopic knee surgery S/P appy S/P cervical spinal fusion S/P tonsillectomy and adenoidectomy Family History Father Hypertension Heart disease age 37 - "heart attack" Brother Hypertension Coronary heart disease Aunt Breast cancer Mother Hypertension Thyroid disease Other Allergies Cancer Diabetes No significant family history Denies family history of Tuberculosis Ovarian cancer Prostate cancer Emphysema, unspecified Colorectal cancer Lung disease Asthma Social History Smoking Status: Current every day smoker Tobacco Type: Cigarettes Age Started Using Tobacco: 19; packs per day: 1; Cigarettes Per Day: 1 Pack; Second Hand Exposure: No; Hx Alcohol Use: Yes Alcohol type: beer and hard liquor Hx Substance Use: No Preferred Language: Yemeni Communication Ability: Effective Visual Impairment: No Limitations Hearing Ability: Normal Wheel Cleaner Required: No Beliefs That Will Affect Care: None marital status: Current Living Situation: Spouse and Family Current Living Situation Comment: and Son current occupational status: disabled Feels Safe at Home: Yes Childhood Exposure to Second-Hand Smoke: Yes caffeine: Yes Dental Care, Regularly: No Physical Activity Frequency: Does not Exercise Seatbelt Use: always Sunscreen Use: No Assistive Devices: Cane Review of Systems Review of Systems: The patient denies chest pain, palpitations, cough, lower extremity swelling, fevers, chills, sweats, nausea, vomiting, diarrhea , constipation, abdominal pain, pelvic pain, blood in urine or stool, dysuria, urinary frequency or urgency, lightheadedness, dizziness, headache, memory loss, loss of consciousness, rash, abnormal bruising or bleeding, imbalance, focal weakness, numbness or tingling in arms or legs, or night sweats. The review of systems is otherwise negative other than for that already noted above, and at least 10 systems have been reviewed. Physical Exam Physical Exam: The patient is awake, alert and oriented 3, well developed and well nourished, normocephalic and atraumatic, lying in bed and in no acute distress. HEENT--PERRL, EOMI, mucous membranes and oropharynx normal Neck--supple. No JVD. No bruits. Thyroid normal, trachea midline, no adenopathy. Heart--normal S1 and S2. No murmurs, rubs or gallops. Lungs--wheezes bilaterally. No respiratory distress, no accessory muscle use. Abdomen--normal bowel sounds and soft. Nontender. Nondistended, no hernias or masses, no organomegaly. Extremities--no cyanosis or clubbing. No edema Dermatologic--normal skin turgor, normal color, no abnormal lymph nodes, no rash. Neurologic--cranial nerves II through XII grossly intact. Rheumatologic--normal range of motion. Psychiatric--normal affect. Results & Data Results & Data ([facility]) Vital Signs (Past 12 Hours) Vital Signs Temp Pulse Pulse Resp BP BP Pulse Ox 11/29/22 04:30 93 H 16 95 11/29/22 04:30 133/73 11/29/22 04:00 88 22 114/53 L 95 11/29/22 03:58 90 16 135/55 L 93 11/29/22 02:00 85 15 112/76 96 11/29/22 00:30 88 19 122/70 96 11/29/22 02:36 89 11/29/22 00:00 85 15 96 11/29/22 00:00 115/75 11/28/22 22:23 88 11/28/22 21:15 94 11/28/22 20:21 83 20 138/78 96 11/28/22 18:42 134/81 11/28/22 18:41 80 96 11/28/22 18:15 83 11/28/22 17:23 36.8 C 88 20 129/75 93 O2 Del Method O2 Flow Rate 11/29/22 04:30 11/29/22 04:30 11/29/22 04:00 Nasal Cannula 2 11/29/22 03:58 Nasal Cannula 2 11/29/22 02:00 Nasal Cannula 2 11/29/22 00:30 Nasal Cannula 2 11/29/22 02:36 11/29/22 00:00 Nasal Cannula 2 11/29/22 00:00 11/28/22 22:23 11/28/22 21:15 Nasal Cannula 2 11/28/22 20:21 Nasal Cannula 2 11/28/22 18:42 11/28/22 18:41 Nasal Cannula 2 11/28/22 18:15 11/28/22 17:23 Room Air Laboratory Results Laboratory Results WBC 13.21 K/ul (4.8-10.8) H 11/28/22 18:35 RBC 3.74 M/uL (4.70-6.10) L 11/28/22 18:35 Hgb 11.7 g/dl (14.0-18.0) L 11/28/22 18:35 Hct 34.9 % (42.0-52.0) L 11/28/22 18:35 MCV 93.3 fL (80.0-100.0) 11/28/22 18:35 MCH 31.3 pg (25.0-34.0) 11/28/22 18:35 MCHC 33.5 g/dL (32.0-36.0) 11/28/22 18:35 RDW Std Deviation 50.3 fL (36.4-46.3) H 11/28/22 18:35 RDW Coeff of Liliya 14.6 % (11.5-14.5) H 11/28/22 18:35 Plt Count 382 K/uL (130-400) 11/28/22 18:35 MPV 9.6 fL (9.4-12.4) 11/28/22 18:35 Immature Gran % (Auto) 1.7 % 11/28/22 18:35 Neut % (Auto) 61.4 % 11/28/22 18:35 Lymph % (Auto) 29.0 % 11/28/22 18:35 Robeson % (Auto) 5.5 % 11/28/22 18:35 Eos % (Auto) 1.9 % 11/28/22 18:35 Baso % (Auto) 0.5 % 11/28/22 18:35 Neut # (Auto) 8.10 K/uL (1.40-6.50) H 11/28/22 18:35 Lymph # (Auto) 3.83 K/uL (1.2-3.4) H 11/28/22 18:35 Robeson # (Auto) 0.73 K/uL (0.11-0.59) H 11/28/22 18:35 Eos # (Auto) 0.25 K/uL (0-0.50) 11/28/22 18:35 Baso # (Auto) 0.07 K/uL (0-0.2) 11/28/22 18:35 Immature Gran # (Auto) 0.23 K/uL (0.01-0.20) H 11/28/22 18:35 PT 9.4 Seconds (9.0-12.0) 11/28/22 20:05 INR 0.9 (0.9-1.1) 11/28/22 20:05 APTT 25.8 Seconds (21.0-31.0) 11/28/22 20:05 PTT Ratio 0.9 11/28/22 20:05 VBG pH 7.34 (7.36-7.41) L 11/28/22 18:35 VBG pCO2 56 mmHg (38-50) H 11/28/22 18:35 VBG pO2 53 mmHg 11/28/22 18:35 VBG HCO3 30 mmol/L 11/28/22 18:35 VBG O2 Saturation 86.8 % 11/28/22 18:35 VBG Base Excess 3.1 mEq/L 11/28/22 18:35 Carboxyhemoglobin 7.8 % THgb 11/28/22 21:19 Sodium 132 mmol/L (136-145) L 11/28/22 18:35 Potassium 4.3 mmol/L (3.5-5.1) 11/28/22 18:35 Chloride 99 mmol/L (98-107) 11/28/22 18:35 Carbon Dioxide 29 mmol/L (21-32) 11/28/22 18:35 Anion Gap 4 (3-11) 11/28/22 18:35 BUN 18 mg/dl (6-23) 11/28/22 18:35 Creatinine 0.90 mg/dl (0.6-1.4) 11/28/22 18:35 Est Cr Clr Drug Dosing 91.3 ml/min 11/28/22 18:35 Est GFR ( Amer) 108.0 ml/min 11/28/22 18:35 Est GFR (Non-Af Amer) 93.2 ml/min 11/28/22 18:35 BUN/Creatinine Ratio 20.0 (10-20) 11/28/22 18:35 Glucose 110 mg/dl (70-99(Fasting)) H 11/28/22 18:35 Calcium 9.2 mg/dl (8.5-10.1) 11/28/22 18:35 Magnesium 1.9 mg/dl (1.7-2.4) 11/28/22 18:35 Magnesium Cancelled 11/28/22 18:35 Total Bilirubin 0.4 mg/dl (0.2-1.0) 11/28/22 18:35 AST 18 U/L (13-39) 11/28/22 18:35 ALT 19 U/L (7-52) 11/28/22 18:35 Alkaline Phosphatase 98 U/L (34-104) 11/28/22 18:35 Troponin I High Sens 6.4 pg/ml (0-20) 11/28/22 21:19 B-Natriuretic Peptide 94 pg/ml (0-100) 11/28/22 18:35 Total Protein 6.9 gm/dl (6.0-8.3) 11/28/22 18:35 Albumin 4.2 gm/dl (3.4-5.0) 11/28/22 18:35 Globulin 2.7 gm/dl (2.5-4.0) 11/28/22 18:35 Albumin/Globulin Ratio 1.6 (0.9-2) 11/28/22 18:35 TSH 0.176 uIu/ml (0.300-4.500) L 11/29/22 03:48 Anaplasma Smear See Comment 11/28/22 18:35 Babesia Smear See Comment 11/28/22 18:35 Lyme Disease IgG Ab Negative (Negative) 11/29/22 03:48 SARS-CoV-2 (PCR) NEGATIVE (Negative) 11/28/22 19:05 Influenza Type A (PCR) Negative (Neg) 11/28/22 19:05 Influenza Type B (PCR) Negative (Neg) 11/28/22 19:05 RSV (RT-PCR) Negative (Neg) 11/28/22 19:05 Group A Strep (PCR) NOT DETECTED (NotDetected) 11/28/22 18:39 Impressions Chest X-Ray 11/28/22 17:24 XR chest 1V portable CLINICAL HISTORY: Dyspnea TECHNIQUE: Single frontal radiograph of the chest was obtained. Comparison: Comparison is made to chest radiograph 08/31/2023 FINDINGS: Fixation hardware is seen in the cervical spine. Cardiomegaly is noted. The lungs are clear. No evidence of pleural effusion or pneumothorax. IMPRESSION: No acute abnormalities and in particular no evidence of pneumonia. ACT 112: Negative or not required by law. Electronically signed by: Eliseo Chu M.D. 11/28/2022 6:08 PM Soft Tissue Neck CT 11/28/22 18:18 CT soft tissue neck w con CLINICAL HISTORY: sore throat mild stridor ro epiglotitis Technique: Axial CT images of the soft tissues of the neck were obtained following intravenous administration of 100 cc of Omnipaque 300. Automated dose lowering techniques and/or adjustment according to patient size were utilized for this exam. CT DOSE: 484.70 mGy.cm Comparison: None available at the time of this dictation. Findings: There are no masses or inflammatory changes seen within the soft tissues of the neck. In particular, the epiglottis is normal. The oropharynx, hypopharynx, larynx, and trachea are patent. No enlarged lymph nodes are seen. The parotid glands, submandibular glands, and thyroid gland are unremarkable. Imaged portions of the brain parenchyma are unremarkable. The paranasal sinuses and mastoid air cells are normal in appearance. Cervical fixation hardware is seen. Impression: No acute abnormality is seen. Particular no evidence of epiglottitis. ACT 112: Negative or not required by law. Electronically signed by: Eliseo Chu M.D. 11/28/2022 8:14 PM Code Status & VTE Plan Code Status Full code VTE Prophylaxis Plan VTE Prophylaxis will be ordered: Yes PG Care Time/CCT Total # of Minutes Spent Total Time Spent with Patient: Total time spent is greater than 50% in coordination of care (as documented) at patient's floor/unit and/or counseling patient: Coding Level of Care Code 21950 INT INP/OBS CARE 3/75MIN Diagnoses COPD exacerbation J44.1 Syncope R55 Syncope type: unspecified Failure of outpatient treatment Z78.9 Hypertension I10 MVP (mitral valve prolapse) I34.1 GERD (gastroesophageal reflux disease) K21.9 Vitamin B12 deficiency E53.8 Tobacco abuse Z72.0 Anxiety disorder F41.9 Chronic pain G89.29 Hypercholesterolemia E78.00 Insomnia G47.00 Polyneuropathy G62.9 Secondary pulmonary hypertension Type II diabetes mellitus E11.9 Sensorineural hearing loss (SNHL) of both ears H90.3 CAD (coronary artery disease) I25.10 COVID-19 U07.1 Acute and chronic respiratory failure with hypoxia J96.21 (2) Syncope Syncope type: unspecified Qualified Code(s): R55 - Syncope and collapse
[2022-11-29 04:52] LABS: Lyme Ab IgG w/WB Rflx Negative (Negative); Lyme Ab IgM w/WB Rflx Equivocal (Negative)
[2022-11-29 05:09] LABS: T4 Free Thyroxine 1.07 ng/dl (0.61-1.60)
[2022-11-29] MEDS ORDERED: methylPREDNISolone 20 MG in SYRINGE 0 ML IV SCH (06:00)
[2022-11-29] MEDS: oxyCODONE HCL IR 5 MG TAB (IMMEDIATE RELEASE) PO SCH ×3 (06:15→18:09)
[2022-11-29] MEDS: methylPREDNISolone 40 MG in SYRINGE 0 ML IV SCH ×3 (06:15→22:26)
[2022-11-29] MEDS: DOXYCYCLINE HYCLATE 100 MG in DEXTROSE 5% 100 ML IV SCH ×2 (06:17→18:12)
--- NOTE | 2022-11-29 06:57 | CT Scan Report ---
CT SCAN OF THE BRAIN WITHOUT IV CONTRAST CLINICAL HISTORY: Drowsiness. Change in mental status. COMPARISON STUDY: CT of the brain dated 10/20/2019. TECHNIQUE: Unenhanced axial CT scan of the brain is performed from the vertex to the skull base. A d ose lowering technique was utilized adhering to the principles of ALARA. CT DOSE: 691.05 mGy.cm FINDINGS: Brain parenchyma: The brain parenchyma is normal in appearance. There is no hemorrhage, mass effect, or evidence of acute territorial ischemia by CT criteria. Martinez-white matter differentiation is preser yash. No extra-axial fluid collection is seen. Ventricles, sulci, cisterns: Normal in configuration. Intracranial vasculature: The visualized intracranial vasculature at the skull base is normal in appe arance. Calvarium: Unremarkable. Sinuses and mastoids: There is mild mucosal thickening in the right maxillary antrum. The remaining v isualized paranasal sinuses are clear. The mastoid air cells are well pneumatized. Orbits: The bony orbits are grossly intact. IMPRESSION: There is no hemorrhage, mass effect, or evidence of acute territorial ischemia by CT ping rolon. ACT 112: Negative or not required by law. Electronically signed by: Rio Laurent M.D. 11/29/2022 6:55 AM
[2022-11-29] MEDS ORDERED: PHARMACY GLYCEMIC MGMT CONSULT PRN (08:19)
[2022-11-29] MEDS ORDERED: INSULIN HUMAN NPH SC ONE (09:00)
[2022-11-29] MEDS ORDERED: NON-FORMULARY MEDICATION (Fluticasone-Umeclidin-Vilanter [Trelegy Ellipta] 100-62.5-25 mcg INH SCH (09:00)
[2022-11-29] MEDS: INSULIN ASPART PER UNIT SC SCH ×4 (09:35→20:24)
[2022-11-29] MEDS: UMECLIDINIUM/VILANTEROL 62.5/25MCG 7 PUFFS/INHALER INH SCH (09:37)
[2022-11-29] MEDS: FLUTICASONE FUROATE 100MCG 14 PUFFS/INHALER INH SCH (09:38)
[2022-11-29] MEDS: FOLIC ACID 1 MG TAB PO SCH (09:38)
[2022-11-29] MEDS: DICYCLOMINE HCL 20 MG TAB PO PRN (09:38)
[2022-11-29] MEDS: CYANOCOBALAMIN (B-12) 500 MCG TABLET PO SCH (09:38)
[2022-11-29] MEDS: SUCRALFATE 1 GM TAB PO SCH ×4 (09:38→20:05)
[2022-11-29] MEDS: GABAPENTIN 300 MG CAP PO SCH ×3 (09:39→20:03)
[2022-11-29] MEDS: DULoxetine HCL 60 MG CAP PO SCH (09:40)
--- NOTE | 2022-11-29 09:44 | Electrocardiogram Report ---
Test Reason : Blood Pressure : / mmHG Vent. Rate : 081 BPM Atrial Rate : 081 BPM P-R Int : 140 ms QRS Dur : 100 ms QT Int : 410 ms P-R-T Axes : 031 040 043 degrees QTc Int : 476 ms Normal sinus rhythm Possible Left atrial enlargement Borderline ECG When compared with ECG of 05-NOV-2022 22:02, T wave amplitude has increased in Lateral leads Confirmed by Mansoor Sadler ([id number]) on 11/29/2022 9:44:43 AM Referred By: REFERRED SELF Confirmed By:Kenney Sadler
[2022-11-29] MEDS: MoRPHine SULFATE CR 15 MG TABCR PO SCH ×2 (09:45→20:08)
--- NOTE | 2022-11-29 09:54 | Electrocardiogram Report ---
Test Reason : Blood Pressure : / mmHG Vent. Rate : 080 BPM Atrial Rate : 080 BPM P-R Int : 144 ms QRS Dur : 100 ms QT Int : 416 ms P-R-T Axes : 038 049 056 degrees QTc Int : 479 ms Normal sinus rhythm Normal ECG When compared with ECG of 28-NOV-2022 18:33, (unconfirmed) No significant change was found Confirmed by Mansoor Sadler ([id number]) on 11/29/2022 9:54:06 AM Referred By: REFERRED SELF Confirmed By:Kenney Sadler
--- NOTE | 2022-11-29 10:43 | Ultrasound Report ---
ULTRASOUND OF THE THYROID GLAND CLINICAL HISTORY: Thyroid ophthalmopathy. COMPARISON STUDY: CT of the neck dated 11/28/2022. TECHNIQUE: Real-time, grayscale, and color flow sonography of the thyroid gland is performed utilizin g a high-frequency linear transducer. Images are reviewed in the transverse and longitudinal planes. FINDINGS: Right lobe: The right lobe of the thyroid gland is top normal in size and slightly heterogeneous in e chotexture, measuring 5.7 x 2.3 x 2.8 cm. No hyperemia is shown for imaging. Scattered low suspicion hypoechoic nodules in the right lobe measure up to 5 mm. Left lobe: The left lobe of the thyroid gland is top normal in size and slightly heterogeneous in ech otexture, measuring 5.2 x 1.5 x 2.2 cm. No hyperemia is shown on color imaging. A honeycomb nodule in the lower pole measures 0.8 x 0.4 by 0.6 cm. Isthmus: The thyroid isthmus is normal in appearance and measures 0.3 cm in AP diameter. IMPRESSION: 1. The thyroid gland is top normal in size and slightly heterogeneous in echotexture. Correlate with serum thyroid function studies. 2. Low suspicion subcentimeter thyroid nodules as above. ACT 112: Negative or not required by law. Electronically signed by: Rio Laurent M.D. 11/29/2022 10:41 AM
--- NOTE | 2022-11-29 11:33 | Pharmacy Report ---
Pharmacy Glycemic Short Note 2 - Date of Service November 29, 2022 - Glycemic Short BSG Results (Last 24 hours): 11/28/22 11/29/22 18:35 08:10 Glucose 110 H POC Glucose 182 H OUTPATIENT ANTIDIABETIC REGIMEN: * Metformin monotherapy * HbA1c 7.1% on 10/30/22 ASSESSMENT: * 57 yo M with well controlled T2DM on a single oral agent admitted 11/29 with COPD exacerbation. * Currently in 1E as a telemetry-status patient and on scheduled steroids. Diet ordered. * Will utilize NPH as basal insulin to help with post-prandial elevations in BSG due to steroids. Lower initial dose at 0.3 units/kg * Will utilize weight-based severe stress estimate Novolog due to scheduled steroids PLAN FOR INPATIENT GLYCEMIC CONTROL: * Hold outpatient oral diabetes medications * Basal insulin * NPH 25 units SQ x1 with breakfast * Bolus insulin * NovoLog per scale ACHS or Q6hrs while NPO * Goal Range: Low 110 mg/dL - High 140 mg/dL * Correction Factor: 20 mg/dL/unit * Nutritional / Prandial insulin per carb ratio of 1 unit per 6 grams CHO consumed
--- NOTE | 2022-11-29 11:40 | Gastrointestinal Consultation ---
Date of Consultation November 29, 2022 Assessment & Plan (1) COPD exacerbation: (2) Acute and chronic respiratory failure with hypoxia: (3) GERD (gastroesophageal reflux disease): Plan Patient is not an ideal candidate for endoscopic admission at present given the primary reason for his admission, however would advise beginning with a CT chest, abdomen, & pelvis to assess for any emergent issues related to his previous CT findings in October of likely ulcer with possible impending perforation. The patient had declined hospital admission for this and has been managed conservatively with PPI therapy & Carafate as an outpatient. Continue PPI, continue Carafate, & increase Pepcid to 20 mg BID. History of Present Illness Reason for Consultation: "GERD & hoarseness" Attending Physician: Baldomero Winter History of Present Illness Patient is a 57 yo male with chronic respiratory failure on home O2 due to COPD, lumbar radiculopathy, HTN, GERD, B12 deficiency, SVT, tobacco abuse, anxiety, HLD, insomnia, pulm HTN, DM2, SNHL, chronic narcotic use, and recent COVID19 infection. The patient presented to the ED after a near syncopal episode. He notes he smokes 1 ppd despite his home O2. He notes his shortness of breath has never gone away since his initial admission in October. GI was asked to see him because of GERD & hoarseness. He recently had a CT abd/pelvis during his last admission that was concerning for gastric ulcer with possible impending perforation. He followed up with Garland Pyle PA-C. The patient did not agree to hospital evaluation for this finding and only agreed to an outpatient trial of PPI therapy & Carafate. Since admission, he notes reflux & hoarseness. No melena or hematemesis. No epigastric pain--in fact, he notes this resolved with PPI therapy. No pertinent family history. Hemoglobin 13.9 on admission and now is 11.7. Soft tissue CT on admission unremarkable for GI issues. Imaging otherwise includes thyroid US & CXR. Allergies Allergy/AdvReac Type Severity Reaction Status Date / Time bee venom protein (honey bee) Allergy Severe PASSES OUT Verified 11/28/22 18:12 naproxen Allergy Intermediate SEVERE RASH Verified 11/28/22 18:12 tramadol AdvReac Intermediate GI SYMPTOMS Verified 11/28/22 18:12 Home Medications Medication Instructions Recorded Confirmed Type docusate sodium 100 mg capsule 100 mg PO BID PRN Constipation 07/02/19 11/28/22 History blood sugar diagnostic (OneTouch #100 ea 02/15/21 11/28/22 Rx Verio test strips) lancets 33 gauge (OneTouch Delica #100 ea 02/15/21 11/28/22 Rx Lancets) atorvastatin 80 mg tablet 80 mg PO HS #90 tabs 02/20/22 11/28/22 Rx epinephrine 0.3 mg/0.3 mL 0.3 mg IM DIRECTED PRN Allergic 02/21/22 11/28/22 History injection, auto-injector (EpiPen) Reaction gabapentin 300 mg capsule 900 mg PO TID #270 caps 04/20/22 11/28/22 Rx famotidine 20 mg tablet 20 mg PO DAILY PRN gerd #30 tabs 05/08/22 11/28/22 Rx metformin 500 mg tablet,extended 1,000 mg PO DAILY #180 tabs 05/09/22 11/28/22 Rx release 24hr tamsulosin 0.4 mg capsule 0.4 mg PO DAILY #90 caps 06/13/22 11/28/22 Rx duloxetine 60 mg capsule,delayed 60 mg PO QAM #90 caps 07/03/22 11/28/22 Rx release furosemide 40 mg tablet 40 mg PO DAILY PRN Edema #90 tabs 07/06/22 11/28/22 Rx folic acid 1 mg tablet 1 mg PO DAILY #90 tabs 08/09/22 11/28/22 Rx mecobalamin (vitamin B12) 1,000 1,000 mcg PO DAILY #90 tabs 08/09/22 11/28/22 Rx mcg chewable tablet fluticasone fur. 100 mcg-umeclid 1 inh inhalation DAILY #60 ea 09/26/22 11/28/22 Rx 62.5 mcg-vilant 25 mcg inhalat.powder (Trelegy Ellipta) ipratropium 0.5 mg-albuterol 3 mg 3 ml inhalation QID PRN Shortness 10/22/22 11/28/22 Rx (2.5 mg base)/3 mL nebulization Of Breath #180 mL soln metoprolol tartrate 50 mg tablet 25 mg PO BID #180 tabs 10/31/22 11/28/22 Rx dicyclomine 20 mg tablet 20 mg PO BID PRN abdominal 11/06/22 11/28/22 Rx discomfort #20 tabs pantoprazole 40 mg tablet,delayed 40 mg PO BID #60 tabs 11/06/22 11/28/22 Rx release (Protonix) pantoprazole 40 mg tablet,delayed 40 mg PO DAILY #14 tabs 11/06/22 11/28/22 Rx release (Protonix) sucralfate 1 gram tablet (Carafate) 1 g PO QID #120 tabs 11/06/22 11/28/22 Rx albuterol sulfate 90 mcg/actuation 2 puff inhalation Q4H PRN Wheezing 11/27/22 11/28/22 Rx aerosol inhaler #8.5 grams morphine 15 mg tablet,extended 15 mg PO Q12H #60 tabs 11/27/22 11/28/22 Rx release oxycodone 15 mg tablet 15 mg PO Q6H #90 tabs 11/27/22 11/28/22 Rx Patient History Medical History Abdominal pain Abnormal abdominal CT scan Abnormal CT scan, chest Acute and chronic respiratory failure with hypoxia Anaphylactic reaction Anemia Anxiety disorder Arthritis of right shoulder region Back pain Bilateral carpal tunnel syndrome Chest pain Chronic bronchitis Chronic hypoxemic respiratory failure Chronic narcotic use Chronic obstructive pulmonary disease Chronic pain Chronic pain syndrome COPD (chronic obstructive pulmonary disease) COPD exacerbation COPD with exacerbation COPD, mild Diastolic CHF, acute on chronic Dyshidrotic eczema Excessive daytime sleepiness Folate deficiency Gait disturbance GERD (gastroesophageal reflux disease) H/O supraventricular tachycardia History of non-ST elevation myocardial infarction (NSTEMI) Hypercholesterolemia Hyperlipemia Hypertension Insomnia Internal hemorrhoids Lumbar radiculopathy Male erectile disorder of organic origin Mitral valve disorder MVP (mitral valve prolapse) Neural foraminal stenosis of cervical spine Nicotine dependence NSTEMI (non-ST elevated myocardial infarction) SAUL (obstructive sleep apnea) Pancytopenia Polyneuropathy Seborrheic keratosis Secondary pulmonary hypertension Tobacco abuse Tobacco abuse counseling Transaminitis Type II diabetes mellitus Ulnar neuropathy at elbow Vitamin B12 deficiency Surgical History H/O cardiac catheterization History of cholecystectomy Hx of appendectomy Hx of arthroscopic knee surgery S/P appy S/P cervical spinal fusion S/P tonsillectomy and adenoidectomy Family History Father Hypertension Heart disease age 37 - "heart attack" Brother Hypertension Coronary heart disease Aunt Breast cancer Mother Hypertension Thyroid disease Other Allergies Cancer Diabetes No significant family history Denies family history of Tuberculosis Ovarian cancer Prostate cancer Emphysema, unspecified Colorectal cancer Lung disease Asthma Social History Smoking Status: Current every day smoker Tobacco Type: Cigarettes Age Started Using Tobacco: 19; packs per day: 1; Cigarettes Per Day: 1 Pack; Second Hand Exposure: No; Hx Alcohol Use: Yes Alcohol type: beer and hard liquor Hx Substance Use: No Preferred Language: Sami Communication Ability: Effective Visual Impairment: No Limitations Hearing Ability: Normal Appeals Coordinator Required: No Beliefs That Will Affect Care: None marital status: Current Living Situation: Spouse Current Living Situation Comment: and Son current occupational status: disabled Feels Safe at Home: Yes Childhood Exposure to Second-Hand Smoke: Yes caffeine: Yes Dental Care, Regularly: No Physical Activity Frequency: Does not Exercise Seatbelt Use: always Sunscreen Use: No Assistive Devices: Cane, Glasses and Hearing Aid - Bilateral Review of Systems Review of Systems: Patient repeatedly falling asleep during my evaluation significantly limiting his participation with my questions Constitutional: + fatigue; no fever and no chills Ear, Nose, Mouth, Throat: + hoarseness Gastrointestinal: + heartburn; no abdominal pain Physical Exam Constitutional: well developed Respiratory: + cough; no dullness to percussion Cardiovascular: Rate/Rhythm: regular rate Gastrointestinal (Abdomen): normal bowel sounds, soft, nontender, no hepatosplenomegaly Psychiatric: Orientation: alert and oriented x 3 Results & Data ([facility]) Vital Signs (Past 12 Hours) Vital Signs Temp Pulse Pulse Resp BP BP Pulse Ox 11/29/22 08:15 87 11/29/22 07:55 11/29/22 07:35 36.4 C L 91 H 22 127/67 96 11/29/22 06:00 83 17 121/70 97 11/29/22 04:37 11/29/22 04:30 93 H 16 95 11/29/22 04:30 133/73 11/29/22 04:00 88 22 114/53 L 95 11/29/22 03:58 90 16 135/55 L 93 11/29/22 02:00 85 15 112/76 96 11/29/22 00:30 88 19 122/70 96 11/29/22 02:36 89 11/29/22 00:00 85 15 96 11/29/22 00:00 115/75 O2 Del Method O2 Flow Rate 11/29/22 08:15 11/29/22 07:55 Nasal Cannula 2 11/29/22 07:35 Nasal Cannula 6 11/29/22 06:00 Nasal Cannula 2 11/29/22 04:37 Nasal Cannula 2 11/29/22 04:30 11/29/22 04:30 11/29/22 04:00 Nasal Cannula 2 11/29/22 03:58 Nasal Cannula 2 11/29/22 02:00 Nasal Cannula 2 11/29/22 00:30 Nasal Cannula 2 11/29/22 02:36 11/29/22 00:00 Nasal Cannula 2 11/29/22 00:00 PG Care Time/CCT Total # of Minutes Spent Total Time Spent with Patient: Total time spent is greater than 50% in coordination of care (as documented) at patient's floor/unit and/or counseling patient: Coding Level of Care Code INP/OBS CONSULT LVL 4, 60 MIN Diagnoses COPD exacerbation J44.1 Acute and chronic respiratory failure with hypoxia J96.21 GERD (gastroesophageal reflux disease) K21.9
--- NOTE | 2022-11-29 19:44 | CT Scan Report ---
ABDOMEN AND PELVIS CT WITH IV AND ORAL CONTRAST CT DOSE: 447.04 mGy.cm HISTORY: Follow up study in a patient with gastric wall thickening. Abnormal previous CT abdomen TECHNIQUE: Multiaxial CT images of the abdomen and pelvis were performed following the IV administrat ion of 84 cc of Optiray and oral contrast. A dose lowering technique was utilized adhering to the pr inciples of SIMON. COMPARISON STUDY: 11/05/2022 FINDINGS: Mild cardiomegaly. Subsegmental bibasilar atelectasis versus scarring. No pneumatosis or pn eumoperitoneum. Calcific granulomata of the spleen. There are a few punctate calcifications within th e pancreas. Unchanged left adrenal gland thickening suggestive of hyperplasia. Unremarkable right adr enal gland and liver. Cholecystectomy with likely postsurgical biliary ductal dilation. 9 mm probable cyst of the left hepatic lobe, image 17 series 2. Patency of the hepatic and portal veins. Unremarkable kidneys. No hydronephrosis. Prostamegaly. Urinary bladder wall thickening with partial d istention. Atherosclerosis of the aorta without aneurysm. No lymphadenopathy. Partial distention of t he stomach. There is decreased distal stomach wall thickening with adjacent inflammatory stranding. T he previously described saccular outpouching is no longer identified. No bowel obstruction or bowel w all thickening identified. Colonic diverticulosis. Moderate colonic fecal retention. Appendectomy. Un remarkable soft tissues. Tiny fat filled umbilical hernia. No acute fracture. Chronic appearing L1 co mpression deformity. 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 IMPRESSION: 1. Resolution of the previously described wall thickening and perigastric inflammation of the distal stomach. The previously noted saccular outpouching of the stomach is also no longer identified. 2. No bowel obstruction or bowel wall thickening. 3. Prior cholecystectomy and appendectomy. 4. 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 5. Additional findings as above. 112: Negative or not required by law. The above report was generated using voice recognition software. It may contain grammatical, syntax o r spelling errors. Electronically signed by: Ed Carbajal M.D. 11/29/2022 7:41 PM
[2022-11-29] MEDS: ATORVASTATIN 40 MG TAB PO SCH (20:04)
[2022-11-29] MEDS: FAMOTIDINE 20 MG TAB PO SCH (20:04)
[2022-11-29] MEDS: TAMSULOSIN HCL 0.4 MG CAP PO SCH (20:06)
[2022-11-30] MEDS: oxyCODONE HCL IR 5 MG TAB (IMMEDIATE RELEASE) PO SCH ×4 (00:19→17:13)
[2022-11-30 06:09] LABS: Basophils # (auto) 0.02 K/uL (0-0.2); Basophils % (auto) 0.1 %; Hematocrit (blood only) 36.4 % (42.0-52.0); Hemoglobin 12.3 g/dl (14.0-18.0); Immature Granulocytes # (auto) 0.26 K/uL (0.01-0.20); Immature Granulocytes % (auto) 1.4 %; Lymphocytes # (auto) 1.85 K/uL (1.2-3.4); Lymphocytes % (auto) 9.7 %; Mean Corpuscular Hemoglobin 30.8 pg (25.0-34.0); Mean Corpuscular Hgb Conc 33.8 g/dL (32.0-36.0); Mean Platelet Volume 9.7 fL (9.4-12.4); Monocytes # (auto) 0.57 K/uL (0.11-0.59); Neutrophils # (auto) 16.32 K/uL (1.40-6.50); Neutrophils % (auto) 85.8 %; Platelet Count 411 K/uL (130-400); RDW Coefficient of Variation 14.7 % (11.5-14.5); RDW Standard Deviation 49.4 fL (36.4-46.3); White Blood Count 19.02 K/ul (4.8-10.8)
[2022-11-30 06:13] LABS: Albumin Globulin Ratio 1.5 (0.9-2); Albumin Level 4.3 gm/dl (3.4-5.0); BUN Creatinine Ratio 28.6 (10-20); Bilirubin,Total 0.5 mg/dl (0.2-1.0); Calcium 9.7 mg/dl (8.5-10.1); Creatinine Clr Calc Pharmacy 97.8 ml/min; Est GFR (African American) 111.1 ml/min; Est GFR (Non-African American) 95.8 ml/min; Globulin 2.8 gm/dl (2.5-4.0); Magnesium 2.3 mg/dl (1.7-2.4); Potassium 4.5 mmol/L (3.5-5.1); Total Protein 7.1 gm/dl (6.0-8.3)
[2022-11-30] MEDS: DOXYCYCLINE HYCLATE 100 MG in DEXTROSE 5% 100 ML IV SCH ×2 (07:03→17:15)
[2022-11-30] MEDS: methylPREDNISolone 40 MG in SYRINGE 0 ML IV SCH ×3 (07:03→22:08)
[2022-11-30] MEDS: INSULIN ASPART PER UNIT SC SCH ×4 (07:57→22:07)
[2022-11-30] MEDS ORDERED: INSULIN HUMAN NPH SC ONE (08:00)
[2022-11-30] MEDS: PANTOprazole 40 MG TAB PO SCH ×2 (08:03→22:05)
[2022-11-30] MEDS: FLUTICASONE FUROATE 100MCG 14 PUFFS/INHALER INH SCH (08:03)
[2022-11-30] MEDS: UMECLIDINIUM/VILANTEROL 62.5/25MCG 7 PUFFS/INHALER INH SCH (08:03)
[2022-11-30] MEDS: CYANOCOBALAMIN (B-12) 500 MCG TABLET PO SCH (08:03)
[2022-11-30] MEDS: GABAPENTIN 300 MG CAP PO SCH ×3 (08:03→22:06)
[2022-11-30] MEDS: DULoxetine HCL 60 MG CAP PO SCH (08:04)
[2022-11-30] MEDS: FOLIC ACID 1 MG TAB PO SCH (08:04)
[2022-11-30] MEDS: SUCRALFATE 1 GM TAB PO SCH ×4 (08:04→22:05)
[2022-11-30] MEDS: METOPROLOL TARTRATE 25 MG TAB PO SCH ×2 (08:04→22:07)
[2022-11-30] MEDS: DICYCLOMINE HCL 20 MG TAB PO PRN (08:04)
[2022-11-30] MEDS: MoRPHine SULFATE CR 15 MG TABCR PO SCH ×2 (08:09→22:10)
--- NOTE | 2022-11-30 11:48 | Communication Note ---
Date of Service: November 30, [address] abdomen/pelvis yesterday that showed resolution of previous gastric ulceration and questionable perforation findings. Given this and given his overall clinical status, would advise he continue Protonix 40 mg BID, Carafate 1 gm QID, & Pepcid 20 mg BID. He can follow-up in the outpatient setting due to further concerns about GERD & hoarseness.
--- NOTE | 2022-11-30 11:55 | Pharmacy Report ---
Pharmacy Glycemic Short Note 2 - Date of Service November 30, 2022 - Glycemic Short BSG Results (Last 24 hours): 11/29/22 11/29/22 11/30/22 18:54 20:11 05:41 Glucose 153 H POC Glucose 145 H 141 H 11/30/22 11/30/22 07:33 11:14 Glucose POC Glucose 159 H 158 H OUTPATIENT ANTIDIABETIC REGIMEN: * Metformin monotherapy * HbA1c 7.1% on 10/30/22 ASSESSMENT: 11/30: * BSGs 147-600-569-158mg/dL the last 24h. Patient received 25 units of basal and 31 units of bolus insulin yesterday * Fasting BSG this AM acceptable, 158mg/dL. Tolerating diet and continues on methylprednisolone 30mg IV q8h. * Will increase basal slightly to 30 units today. No change to Novolog parameters. 11/29: * 57 yo M with well controlled T2DM on a single oral agent admitted 11/29 with COPD exacerbation. * Currently in 1E as a telemetry-status patient and on scheduled steroids. Diet ordered. * Will utilize NPH as basal insulin to help with post-prandial elevations in BSG due to steroids. Lower initial dose at 0.3 units/kg * Will utilize weight-based severe stress estimate Novolog due to scheduled steroids PLAN FOR INPATIENT GLYCEMIC CONTROL: * Hold outpatient oral diabetes medications * Basal insulin * NPH 30 units SQ daily with breakfast (while receiving steroids) * Bolus insulin * NovoLog per scale ACHS or Q6hrs while NPO * Goal Range: Low 110 mg/dL - High 140 mg/dL * Correction Factor: 20 mg/dL/unit * Nutritional / Prandial insulin per carb ratio of 1 unit per 6 grams CHO consumed
--- NOTE | 2022-11-30 13:22 | Hospitalist Progress Note ---
Date of Service November 30, 2022 Assessment & Plan (1) COPD exacerbation: (2) Syncope: (3) Failure of outpatient treatment: (4) Hypertension: (5) MVP (mitral valve prolapse): (6) GERD (gastroesophageal reflux disease): (7) Vitamin B12 deficiency: (8) Tobacco abuse: (9) Anxiety disorder: (10) Chronic pain: (11) Hypercholesterolemia: (12) Insomnia: (13) Polyneuropathy: (14) Secondary pulmonary hypertension: (15) Type II diabetes mellitus: (16) Sensorineural hearing loss (SNHL) of both ears: (17) CAD (coronary artery disease): (18) COVID-19: (19) Acute and chronic respiratory failure with hypoxia: Plan Acute and chronic respiratory failure with hypoxia/COPD exa cerbation/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 He continues to smoke tobacco about 1 pack/day, during this entire time, in spite of requiring nasal cannula oxygen at home He was given the following by the ED: DuoNeb, Solu-Medrol 125 mg IV, and 2 additional DuoNebs. Methylprednisolone 40 mg IV every 8 hours Duonebs every 4 hours while awake and every 2 hours when necessary. Continue Jose Juan Muir Advised the patient to work on tobacco cessation, but he has no interest in doing so Started on doxycycline 100 mg IV twice daily as noted below Hoarseness/GERD- Differential including viral, GI, tobacco irritation, postnasal drip and others Patient did have a negative CT of the soft tissue of the neck in the ED this evening Discussed tobacco cessation counseling Continue pantoprazole 40 mg p.o. twice daily and change famotidine from as needed to at bedtime Continue Carafate 1 g p.o. 4 times daily Patient reports an upcoming appointment with Dr. Conti scheduled for 12/07 Direct visualization by GI or ENT may be indicated regarding hoarseness and uncontrolled reflux Diabetes mellitus- Patient reports that his blood sugars are often in the 60s to 70s in the morning Hold metformin 1000 mg p.o. 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 Order thyroid antibody panel and thyroid ultrasound May need thyroid uptake scan May be contributing to fatigue, hoarseness Severe generalized fatigue- The patient [place] 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 twice daily as opposed to oral Hyperlipidemia- Continue atorvastatin 80 mg at bedtime Hypertension- Continue metoprolol tartrate 25 mg p.o. twice daily Hold furosemide as needed Chronic pain/anxiety/neuropathy- Continue duloxetine 60 mg every morning, gabapentin 900 mg p.o. 3 times daily, morphine extended release 15 mg p.o. every 12 hours, oxycodone 15 mg p.o. every 6 hours while awake BPH- Continue tamsulosin 0.4 mg, changed to bedtime, as this may be contributing to orthostatic symptoms in the morning Admission and Anticipated Discharge Date Admission Date: November 29, 2022 Subjective pt reports feeling slightly better no cp or sob reported Patient reports some generalized weakness Physical Exam Physical Exam: Head and ENT no thyroid enlargement trachea midline Cardiovascular S1-S2 are normal no S3 Lungs bilateral air entry fair no wheezing Abdomen soft nondistended positive bowel sounds no rebound tenderness Extremity shows trace edema Neurologically no focal deficits Skin shows no rash no cyanosis Results & Data Results & Data ([facility]) Vital Signs (Past 12 Hours) Vital Signs Temp Pulse Pulse Resp BP Pulse Ox O2 Del Method 11/30/22 12:40 36.7 C 82 16 133/80 92 Room Air 11/30/22 07:00 77 11/30/22 07:13 36.7 C 83 16 131/81 90 Room Air 11/30/22 03:13 36.8 C 81 18 124/76 90 Room Air Laboratory Results Short CBC 11/30/22 Range/Units 05:41 WBC 19.02 H (4.8-10.8) K/ul Hgb 12.3 L (14.0-18.0) g/dl Hct 36.4 L (42.0-52.0) % Plt Count 411 H (130-400) K/uL BMP 11/30/22 05:41 Sodium 133 L Potassium 4.5 Chloride 99 Carbon Dioxide 30 BUN 24 H Creatinine 0.84 Glucose 153 H Calcium 9.7 Liver Function 11/30/22 Range/Units 05:41 Total Bilirubin 0.5 (0.2-1.0) mg/dl AST 13 (13-39) U/L ALT 17 (7-52) U/L Alkaline Phosphatase 94 (34-104) U/L Albumin 4.3 (3.4-5.0) gm/dl PG Care Time/CCT Total # of Minutes Spent Total Time Spent with Patient: Total time spent is greater than 50% in coordination of care (as documented) at patient's floor/unit and/or counseling patient: Coding Level of Care Code 79693 SUB INP/OBS CARE 2/35MIN Diagnoses COPD exacerbation J44.1 Syncope R55 Syncope type: unspecified Failure of outpatient treatment Z78.9 Hypertension I10 MVP (mitral valve prolapse) I34.1 GERD (gastroesophageal reflux disease) K21.9 Vitamin B12 deficiency E53.8 Tobacco abuse Z72.0 Anxiety disorder F41.9 Chronic pain G89.29 Hypercholesterolemia E78.00 Insomnia G47.00 Polyneuropathy G62.9 Secondary pulmonary hypertension Type II diabetes mellitus E11.9 Sensorineural hearing loss (SNHL) of both ears H90.3 CAD (coronary artery disease) I25.10 COVID-19 U07.1 Acute and chronic respiratory failure with hypoxia J96.21 (2) Syncope Syncope type: unspecified Qualified Code(s): R55 - Syncope and collapse
[2022-11-30 15:53] LABS: Microsomal Ab <1 IU/mL (<9); Thyroglobulin Antibodies <1 IU/mL (< or = 1)
[2022-11-30] MEDS: FAMOTIDINE 20 MG TAB PO SCH (22:05)
[2022-11-30] MEDS: TAMSULOSIN HCL 0.4 MG CAP PO SCH (22:06)
[2022-11-30] MEDS: ATORVASTATIN 40 MG TAB PO SCH (22:06)
[2022-12-01] MEDS: oxyCODONE HCL IR 5 MG TAB (IMMEDIATE RELEASE) PO SCH ×3 (00:29→13:17)
[2022-12-01] MEDS: methylPREDNISolone 40 MG in SYRINGE 0 ML IV SCH ×2 (06:17→13:43)
[2022-12-01] MEDS: DOXYCYCLINE HYCLATE 100 MG in DEXTROSE 5% 100 ML IV SCH (06:21)
[2022-12-01 06:25] LABS: Basophils # (auto) 0.04 K/uL (0-0.2); Basophils % (auto) 0.2 %; Hematocrit (blood only) 36.9 % (42.0-52.0); Hemoglobin 12.2 g/dl (14.0-18.0); Immature Granulocytes % (auto) 1.8 %; Lymphocytes # (auto) 1.57 K/uL (1.2-3.4); Lymphocytes % (auto) 9.6 %; Mean Corpuscular Hemoglobin 30.7 pg (25.0-34.0); Mean Corpuscular Hgb Conc 33.1 g/dL (32.0-36.0); Mean Corpuscular Volume 92.7 fL (80.0-100.0); Mean Platelet Volume 9.8 fL (9.4-12.4); Monocytes # (auto) 0.58 K/uL (0.11-0.59); Monocytes % (auto) 3.5 %; Neutrophils # (auto) 13.87 K/uL (1.40-6.50); Neutrophils % (auto) 84.9 %; Platelet Count 386 K/uL (130-400); RDW Coefficient of Variation 14.6 % (11.5-14.5); RDW Standard Deviation 49.9 fL (36.4-46.3); Red Blood Count 3.98 M/uL (4.70-6.10); White Blood Count 16.36 K/ul (4.8-10.8)
[2022-12-01 06:46] LABS: BUN Creatinine Ratio 27.6 (10-20); Calcium 9.6 mg/dl (8.5-10.1); Creatinine Clr Calc Pharmacy 83.8 ml/min; Est GFR (African American) 97.4 ml/min; Est GFR (Non-African American) 84.1 ml/min; Potassium 5.5 mmol/L (3.5-5.1)
[2022-12-01] MEDS ORDERED: INSULIN HUMAN NPH SC SCH (08:00)
[2022-12-01 08:20] LABS: Albumin Globulin Ratio 1.6 (0.9-2); Albumin Level 3.9 gm/dl (3.4-5.0); Bilirubin,Total 0.5 mg/dl (0.2-1.0); Globulin 2.5 gm/dl (2.5-4.0); Magnesium 2.3 mg/dl (1.7-2.4); Total Protein 6.4 gm/dl (6.0-8.3)
[2022-12-01] MEDS: GABAPENTIN 300 MG CAP PO SCH ×2 (09:14→13:43)
[2022-12-01] MEDS: METOPROLOL TARTRATE 25 MG TAB PO SCH (09:14)
[2022-12-01] MEDS: CYANOCOBALAMIN (B-12) 500 MCG TABLET PO SCH (09:15)
[2022-12-01] MEDS: PANTOprazole 40 MG TAB PO SCH (09:15)
[2022-12-01] MEDS: FOLIC ACID 1 MG TAB PO SCH (09:15)
[2022-12-01] MEDS: DULoxetine HCL 60 MG CAP PO SCH (09:15)
[2022-12-01] MEDS: DICYCLOMINE HCL 20 MG TAB PO PRN (09:15)
[2022-12-01] MEDS: SUCRALFATE 1 GM TAB PO SCH ×2 (09:15→13:44)
[2022-12-01] MEDS: FLUTICASONE FUROATE 100MCG 14 PUFFS/INHALER INH SCH (09:16)
[2022-12-01] MEDS: UMECLIDINIUM/VILANTEROL 62.5/25MCG 7 PUFFS/INHALER INH SCH (09:16)
[2022-12-01] MEDS: MoRPHine SULFATE CR 15 MG TABCR PO SCH (09:29)
[2022-12-01] MEDS: INSULIN ASPART PER UNIT SC SCH ×2 (09:30→13:41)
--- NOTE | 2022-12-01 18:54 | Discharge Summary ---
Date of Service December 01, 2022 Admission HPI Per Admitting Provider The patient is a 57-year-old male with oxygen dependent COPD, lumbar radiculopathy, hypertension, GERD, mitral valve prolapse, B12 deficiency, history of SVT, tobacco abuse, anxiety disorder, bilateral carpal tunnel syndrome, dyshidrotic eczema, hypercholesterolemia, insomnia, internal hemorrhoids, cervical spine neuroforaminal stenosis, polyneuropathy, secondary pulmonary hypertension, diabetes mellitus type 2, SNHL bilaterally, CAD, COVID- 19 infection, chronic hypoxemic respiratory failure, chronic narcotic use, and right greater than left bilateral knee osteoarthritis. The patient presents to the emergency department after a near syncopal episode while out shopping at a store this morning, where had to lean against the wall to keep from passing out. He does continue to smoke 1 pack/day, in spite of being on supplemental oxygen via nasal cannula. He reports that he has continued to be short of breath since his admission from 116-10/31/2022, having never got back to his baseline. As noted, he has continued to smoke during this time Principal Diagnosis Syncope , copd exacerbation Discharge Exam Head and ENT no thyroid enlargement trachea midline Cardiovascular S1-S2 are normal no S3 Lungs bilateral air entry fair no wheezing Abdomen soft nondistended positive bowel sounds no rebound tenderness Extremity shows trace edema Neurologically no focal deficits Skin shows no rash no cyanosis Discharge Data Allergies Allergy/AdvReac Type Severity Reaction Status Date / Time bee venom protein (honey bee) Allergy Severe PASSES OUT Verified 11/28/22 18:12 naproxen Allergy Intermediate SEVERE RASH Verified 11/28/22 18:12 tramadol AdvReac Intermediate GI SYMPTOMS Verified 11/28/22 18:12 Consultations 11/28/22 23:31 ED Decision to Admit Stat 11/29/22 03:38 Consult Gastroenterology Routine Ordered Studies 11/28/22 18:18 CT soft tissue neck w con Stat 11/28/22 22:24 CT head/brain wo con Urgent 11/29/22 05:27 US thyroid Routine 11/29/22 11:55 CT Abd and Pelvis [CT abd pelvis oral and IV con] Routine Hospital Course (1) COPD exacerbation: improving (2) Syncope: TTE - done no acute findings noted (3) Failure of outpatient treatment: (4) Hypertension: (5) MVP (mitral valve prolapse): (6) GERD (gastroesophageal reflux disease): (7) Vitamin B12 deficiency: (8) Tobacco abuse: (9) Anxiety disorder: (10) Chronic pain: (11) Hypercholesterolemia: (12) Insomnia: (13) Polyneuropathy: (14) Secondary pulmonary hypertension: (15) Type II diabetes mellitus: (16) Sensorineural hearing loss (SNHL) of both ears: (17) CAD (coronary artery disease): (18) COVID-19: (19) Acute and chronic respiratory failure with hypoxia: Plan Acute and chronic respiratory failure with hypoxia/COPD exacerbation/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 He continues to smoke tobacco about 1 pack/day, during this entire time, in spite of requiring nasal cannula oxygen at home He was given the following by the ED: DuoNeb, Solu-Medrol 125 mg IV, and 2 additional DuoNebs. Methylprednisolone 40 mg IV every 8 hours Duonebs every 4 hours while awake and every 2 hours when necessary. Continue Trelegy Danyelta Advised the patient to work on tobacco cessation, but he has no interest in doing so Started on doxycycline 100 mg IV twice daily as noted below Hoarseness/GERD- Differential including viral, GI, tobacco irritation, postnasal drip and others Patient did have a negative CT of the soft tissue of the neck in the ED this evening Discussed tobacco cessation counseling Continue pantoprazole 40 mg p.o. twice daily and change famotidine from as needed to at bedtime Continue Carafate 1 g p.o. 4 times daily Patient reports an upcoming appointment with Dr. Conti scheduled for 12/07 Direct visualization by GI or ENT may be indicated regarding hoarseness and uncontrolled reflux Diabetes mellitus- Patient reports that his blood sugars are often in the 60s to 70s in the morning Hold metformin 1000 mg p.o. 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 Order thyroid antibody panel and thyroid ultrasound May need thyroid uptake scan May be contributing to fatigue, hoarseness Severe generalized fatigue- The [place] 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 twice daily as opposed to oral Hyperlipidemia- Continue atorvastatin 80 mg at bedtime Hypertension- Continue metoprolol tartrate 25 mg p.o. twice daily Hold furosemide as needed Chronic pain/anxiety/neuropathy- Continue duloxetine 60 mg every morning, gabapentin 900 mg p.o. 3 times daily, morphine extended release 15 mg p.o. every 12 hours, oxycodone 15 mg p.o. every 6 hours while awake BPH- Continue tamsulosin 0.4 mg, changed to bedtime, as this may be contributing to orthostatic symptoms in the morning Total Time Total Time Spent Total Time Spent (In Minutes): 45 Discharge Plan Discharge Items Patient Disposition: Home - Self-Care Reason For Visit: NEAR SYNCOPE, COPD EX Discharge Diagnosis: near Syncope, COPD exacerbation Activity: Per Instructions section Lifting: Gradually increase as tolerated Non-emergency contact: Primary Care Provider and Glue Spreader Call non-emergency contact if: your symptoms worsen Follow-up/Referrals: Mansoor Zhao MD [Primary Care Provider] - Diet: Carb Consistent or DM2 and Heart Healthy Addtl Attending Provider Instructions: keep GI consult - 1 week for GERD f/u pulmonary - 1 week Pending Studies at Discharge: No Stand-Alone Forms: My [facility] [employer], Smoking Cessation Medications and DC Order Prescriptions: Continued atorvastatin 80 mg tablet 80 mg PO HS Qty: 90 3RF gabapentin 300 mg capsule 900 mg PO TID Qty: 270 5RF metformin 500 mg tablet extended release 24hr 1,000 mg PO DAILY Qty: 180 3RF Rx Instructions: take with breakfast. tamsulosin 0.4 mg capsule 0.4 mg PO DAILY Qty: 90 3RF duloxetine 60 mg capsule,delayed release(DR/EC) 60 mg PO QAM Qty: 90 3RF furosemide 40 mg tablet 40 mg PO DAILY PRN (Reason: Edema) Qty: 90 3RF Rx Instructions: TAKE 1 TABLET BY MOUTH DAILY NEEDED FOR WEIGHT GAIN folic acid 1 mg tablet 1 mg PO DAILY Qty: 90 3RF mecobalamin (vitamin B12) 1,000 mcg tablet,chewable 1,000 mcg PO DAILY Qty: 90 3RF Trelegy Ellipta 100-62.5-25 mcg blister with device 1 inh inhalation DAILY Qty: 60 6RF albuterol sulfate 90 mcg/actuation HFA aerosol inhaler 2 puff INHALATION Q4H PRN (Reason: Wheezing) Qty: 8.5 11RF morphine 15 mg tablet extended release 15 mg PO Q12H Qty: 60 0RF oxycodone 15 mg tablet 15 mg PO Q6H Qty: 90 0RF famotidine 20 mg tablet 20 mg PO DAILY PRN (Reason: gerd) Qty: 30 5RF sucralfate [Carafate] 1 gram tablet 1 g PO QID Qty: 120 0RF pantoprazole [Protonix] 40 mg tablet,delayed release (DR/EC) 40 mg PO BID Qty: 60 2RF docusate sodium 100 mg capsule 100 mg PO BID PRN (Reason: Constipation) ipratropium-albuterol 0.5 mg-3 mg(2.5 mg base)/3 mL solution for nebulization 3 ml Inhalation QID PRN (Reason: Shortness Of Breath) Qty: 180 3RF (DME) OneTouch Verio test strips Strip See Rx Instructions .ROUTE .MEDSUPPLY Qty: 100 1RF Rx Instructions: As directed - check sugars 1x each day. (DME) lancets [OneTouch Delica Lancets] 33 gauge misc See Rx Instructions .ROUTE .MEDSUPPLY Qty: 100 1RF Rx Instructions: As directed - check blood sugars 1x daily. epinephrine [EpiPen] 0.3 mg/0.3 mL auto-injector 0.3 mg IM DIRECTED PRN (Reason: Allergic Reaction) metoprolol tartrate 50 mg tablet 25 mg PO BID Qty: 180 3RF pantoprazole [Protonix] 40 mg tablet,delayed release (DR/EC) 40 mg PO DAILY Qty: 14 0RF dicyclomine 20 mg tablet 20 mg PO BID PRN (Reason: abdominal discomfort) Qty: 20 0RF Discharge Orders: Discharge Order (Routine); Ordered 12/01/22 Ordered By: Terrell Joseph Admission Data Admit Date/Time: 11/29/22 00:49 Attending Provider: Terrell Joseph Admit Provider: Johny García Primary Care Provider: Mansoor Zhao Other Providers: Johny García ; Smith Conti Other Interventions: Discharge Summary Assessment (RN) Last Done: 12/01/22 13:52 Coding Level of Care Code HOSP INP/OBS DISCH >30 MIN Diagnoses COPD exacerbation J44.1 Syncope R55 Syncope type: unspecified Failure of outpatient treatment Z78.9 Hypertension I10 MVP (mitral valve prolapse) I34.1 GERD (gastroesophageal reflux disease) K21.9 Vitamin B12 deficiency E53.8 Tobacco abuse Z72.0 Anxiety disorder F41.9 Chronic pain G89.29 Hypercholesterolemia E78.00 Insomnia G47.00 Polyneuropathy G62.9 Secondary pulmonary hypertension Type II diabetes mellitus E11.9 Sensorineural hearing loss (SNHL) of both ears H90.3 CAD (coronary artery disease) I25.10 COVID-19 U07.1 Acute and chronic respiratory failure with hypoxia J96.21
[2022-12-02 14:57] LABS: Babesia microti DNA Not Detected (Not Detected)
[2022-12-05 03:27] LABS: 18KDIGG Band NON-REACTIVE; 23KDIGG Band NON-REACTIVE; 23KDIGM Band NON-REACTIVE; 28KDIGG Band NON-REACTIVE; 30KDIGG Band NON-REACTIVE; 39KDIGG Band NON-REACTIVE; 39KDIGM Band NON-REACTIVE; 41KDIGG Band NON-REACTIVE; 41KDIGM Band NON-REACTIVE; 45KDIGG Band NON-REACTIVE; 58KDIGG Band NON-REACTIVE; 66KDIGG Band NON-REACTIVE; 93KDIGG Band NON-REACTIVE; Lyme Antibodies, WB IgG NEGATIVE (NEGATIVE); Lyme Antibodies, WB IgM NEGATIVE (NEGATIVE)
== END 2022-12-01 15:10 | disposition home or self-care (01) | DRG 190 ==
LOC: ED 16:52 → EDINP 11-29 00:49 → SUATTDRO 11-29 00:49 → 1E 11-29 03:39 → 2E 11-29 19:11

== ENCOUNTER 2023-04-25 10:15 | Inpatient (IN) ==
[2023-04-25] MEDS ORDERED: ONDANSETRON INJ 2 MG/ML 2 ML VIAL IV STA (10:34)
[2023-04-25] MEDS ORDERED: SODIUM CHLORIDE 0.9% 500 ML IV ONE (10:34)
[2023-04-25] MEDS ORDERED: MoRPHine SULFATE 4 MG/ML 1 ML CARP\\VIAL IV STA (10:34)
--- NOTE | 2023-04-25 10:36 | Emergency Department Note ---
Impression & Plan Diverticulitis ADMIT ED Provider Note HPI: The patient is a 57-year-old gentleman with history of hypertension, COPD, presents emergency department with a chief complaint of lower abdominal pain. Patient states over the past 2 days he has had some pain mostly in the lower abdomen, patient states that to some degree he also has some discomfort in the upper abdomen but this is less severe. Patient denies any vomiting, states he has had a diminished appetite, denies any diarrhea, patient states that he has not had a bowel movement in the past 2 days. He states he does not feel a sensation as if he needs to have a bowel movement. On arrival here to the ED, the patient is mildly tachycardic at 113 but otherwise hemodynamically stable. ROS: - Per HPI Differential Diagnosis: Diverticulitis flare, acute appendicitis, acute colitis, small bowel obstruction, perforated viscus, amongst other potential pathologies. *Outpatient medications and allergy history reviewed. *Pertinent external medical records reviewed. PE: General: Alert HEENT: Normocephalic, trachea midline Eyes: Extraocular eye movement is intact, no scleral erythema Pulmonary: Clear to auscultation bilaterally, no wheezing Cardio: Regular rate and rhythm GI: Abdomen is soft to palpation, mild distention, there is tenderness in the lower quadrants of the abdomen bilaterally to palpation without rigidity : No suprapubic tenderness MSK: No evidence of trauma or malformation of the extremities, no edema Skin: No evidence of rash Neuro: Alert, no focal deficits Psychiatric: Cooperative hands hanger: (As interpreted by myself): - An order was placed for continuous cardiac monitoring - Patient was noted to be in sinus rhythm with a rate of 95 Interventions provided in ED: -IV morphine, IV Zosyn, IV fluid bolus Medical Decision Making: Shortly after the patient arrived IV was established and lab work obtained, patient was given IV morphine for pain and an IV fluid bolus. Lab work shows a leukocytosis of 16.54, hemoglobin is normal at 14.2, platelet count is within normal limits. CMP does not show any critical abnormalities, no acute kidney in jury, no critical electrolyte abnormalities. CT imaging of the abdomen shows evidence of diverticulitis flare of the sigmoid colon with also evidence of microperforation and several abscesses measuring up to 17 mm in diameter. On my reassessment patient states he feels improved following pain medication and he remains hemodynamically stable. I did discuss the case with the on-call general surgery midlevel provider, Katty Robb, states general surgery is in agreement for consultation and there is no emergent indication for surgery at this time. Case was then discussed with the on-call hospitalist team midlevel provider, Abhi Maza PA-C, and the patient was placed for admission in stable condition. Patient was given a dose of IV Zosyn prior to admission and following blood cultures being drawn. Consultants: -General surgery service -Hospitalist service Disposition discussion held by myself with: Patient Diagnosis: 1. Acute diverticulitis flare with microperforation and abscess formation 2. Abdominal pain, acute 3. Leukocytosis, acute Disposition: Admission Derrick Hagen DO Emergency Medicine Past Med/Surg History Medical History (Updated 04/25/23 @ 15:02 by Derrick Hagen DO) Acid reflux Anaplasmosis Back pain Borderline diabetes CAD (coronary artery disease) Chronic bronchitis Chronic narcotic use Chronic obstructive pulmonary disease WEARS 2L HS (WILL WEAR DURING DAY PRN SOB) Chronic pain syndrome Chronic, continuous use of opioids Diabetes mellitus type 2, uncontrolled Diastolic CHF, acute on chronic Dyshidrotic eczema Excessive daytime sleepiness Folate deficiency Gait disturbance GERD (gastroesophageal reflux disease) H/O supraventricular tachycardia Hyperlipemia Hypertension Hypertension Insomnia Internal hemorrhoids Lumbar radiculopathy 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 SALDIVAR H/O vasectomy + REVERSAL History of cholecystectomy History of colonoscopy History of tooth extraction Hx of appendectomy Hx of arthroscopic knee surgery RT/LEFT S/P appy S/P cervical spinal fusion GOOD ROM S/P tonsillectomy and adenoidectomy Family History Father Heart disease Hypertension Brother Coronary heart disease Hypertension Aunt Breast cancer Mother Hypertension Thyroid disease Other Allergies Cancer Diabetes No family history of adverse response to anesthesia No significant family history Denies family history of Tuberculosis Ovarian cancer Prostate cancer Emphysema, unspecified Colorectal cancer Lung disease Asthma Social History Smoking Status: Current every day smoker Tobacco Type: Cigarettes Age Started Using Tobacco: 19; packs per day: 1; Cigarettes Per Day: 20 CIG DAILY>ADVISED; Second Hand Exposure: Yes; Do You Dip or Chew Tobacco: No; Hx Alcohol Use: No Hx Substance Use: No Preferred Language: Yoruba Communication Ability: Effective Visual Impairment: No Limitations Hearing Ability: Normal Composition Weatherboard Applier Required: No Beliefs That Will Affect Care: None marital status: Current Living Situation: Spouse Current Living Situation Comment: and Son current occupational status: disabled Feels Safe at Home: Yes Childhood Exposure to Second-Hand Smoke: Yes Diet: low carbohydrate caffeine: Yes Dental Care, Regularly: No Physical Activity Frequency: Does not Exercise Seatbelt Use: always Sunscreen Use: No Assistive Devices: Cane, Glasses, Hearing Aid - Bilateral, Nebulizer and Oxygen - at Night Allergies Allergies Allergy/AdvReac Type Severity Reaction Status Date / Time bee venom protein (honey bee) Allergy Severe PASSES OUT Verified 04/25/23 12:11 naproxen Allergy Intermediate SEVERE RASH Verified 04/25/23 12:11 tramadol AdvReac Intermediate GI SYMPTOMS Verified 04/25/23 12:11 Home Meds Home Medications Medication Instructions Recorded Confirmed docusate sodium 100 mg capsule 100 mg PO BID PRN Constipation 07/02/19 04/25/23 epinephrine 0.3 mg/0.3 mL 0.3 mg IM DIRECTED PRN Allergic 02/21/22 04/25/23 injection, auto-injector (EpiPen) Reaction tamsulosin 0.4 mg capsule 0.4 mg PO QAM 01/04/23 04/25/23 Previous Rx's Medication Instructions Recorded blood sugar diagnostic (Transfer ToTouch #100 ea 02/15/21 Verio test strips) lancets 33 gauge (OneTouch Delica #100 ea 02/15/21 Lancets) metformin 500 mg tablet,extended 1,000 mg PO DAILY #180 tabs 07/27/22 release 24hr duloxetine 60 mg capsule,delayed 60 mg PO QAM #90 caps 07/03/22 release furosemide 40 mg tablet 40 mg PO DAILY PRN Edema #90 tabs 07/06/22 fluticasone fur. 100 mcg-umeclid 1 inh inhalation DAILY #60 ea 09/26/22 62.5 mcg-vilant 25 mcg inhalat.powder (Trelegy Ellipta) ipratropium 0.5 mg-albuterol 3 mg 3 ml inhalation QID PRN Shortness 10/22/22 (2.5 mg base)/3 mL nebulization Of Breath #180 mL soln metoprolol tartrate 50 mg tablet 25 mg PO BID #180 tabs 10/31/22 dicyclomine 20 mg tablet 20 mg PO BID PRN abdominal 11/06/22 discomfort #20 tabs albuterol sulfate 90 mcg/actuation 2 puff inhalation Q4H PRN Wheezing 11/27/22 aerosol inhaler #8.5 grams gabapentin 300 mg capsule 900 mg PO TID #270 caps 12/13/22 atorvastatin 80 mg tablet 80 mg PO HS #90 tabs 01/22/23 pantoprazole 40 mg tablet,delayed 40 mg PO BID #60 tabs 01/22/23 release (Protonix) famotidine 40 mg tablet 40 mg PO BID #60 tabs 03/07/23 oxycodone 15 mg tablet 15 mg PO Q6H #90 tabs 04/15/23 morphine 15 mg tablet,extended 15 mg PO Q12H #60 tabs 04/25/23 release Results & Data (ED) Vital Signs Vital Signs - 24 hr 04/25/23 10:20 04/25/23 10:15 04/25/23 10:26 Temperature 36.6 C Temperature Source Temporal Artery Scan Pulse Rate 113 H Pulse Rate [Apical] 95 H Pulse Rhythm [Apical] Regular Respiratory Rate 18 15 Respiratory Effort / Characteristics Non-Labored Spontaneous Non-Labored Respiratory Depth Normal Normal Respiratory Pattern Regular Regular Blood Pressure 132/100 Blood Pressure [Right Arm] 136/89 Blood Pressure Mean 110 Blood Pressure Mean [Right Arm] 104 Pulse Oximetry 98 96 Oxygen Delivery Method Room Air Room Air Room Air Sepsis Recent Fever Within 48 Hours No Sepsis New/Unexplained Change in Mental Status No Sepsis Action Taken by Nursing No Action Required 04/25/23 12:15 04/25/23 14:00 04/25/23 14:42 Temperature Temperature Source Pulse Rate 93 H Pulse Rate [Apical] 91 H 85 Pulse Rhythm [Apical] Respiratory Rate 18 19 Respiratory Effort / Characteristics Respiratory Depth Respiratory Pattern Blood Pressure Blood Pressure [Right Arm] 131/85 136/90 Blood Pressure Mean Blood Pressure Mean [Right Arm] 100 105 Pulse Oximetry 95 94 Oxygen Delivery Method Sepsis Recent Fever Within 48 Hours Sepsis New/Unexplained Change in Mental Status Sepsis Action Taken by Nursing Laboratory Data 04/25/23 10:44 04/25/23 10:44 Lab Results 04/25/23 04/25/23 04/25/23 Range/Units 10:44 10:44 13:44 WBC 16.54 H (4.8-10.8) K/ul RBC 4.48 L (4.70-6.10) M/uL Hgb 14.2 (14.0-18.0) g/dl Hct 42.6 (42.0-52.0) % MCV 95.1 (80.0-100.0) fL MCH 31.7 (25.0-34.0) pg MCHC 33.3 (32.0-36.0) g/dL RDW Std Deviation 53.4 H (36.4-46.3) fL RDW Coeff of Liliya 15.3 H (11.5-14.5) % Plt Count 335 (130-400) K/uL MPV 9.6 (9.4-12.4) fL Immature Gran % (Auto) 0.8 % Neut % (Auto) 72.3 % Lymph % (Auto) 17.5 % [place] % (Auto) 7.5 % Eos % (Auto) 1.5 % Baso % (Auto) 0.4 % Neut # (Auto) 11.95 H (1.40-6.50) K/uL Lymph # (Auto) 2.90 (1.2-3.4) K/uL [place] # (Auto) 1.24 H (0.11-0.59) K/uL Eos # (Auto) 0.25 (0-0.50) K/uL Baso # (Auto) 0.06 (0-0.2) K/uL Immature Gran # (Auto) 0.14 (0.01-0.20) K/uL Sodium 137 (136-145) mmol/L Potassium 3.6 (3.5-5.1) mmol/L Chloride 103 (98-107) mmol/L Carbon Dioxide 27 (21-32) mmol/L Anion Gap 7 (3-11) BUN 16 (6-23) mg/dl Creatinine 0.90 (0.6-1.4) mg/dl Est Cr Clr Drug Dosing 85.5 ml/min Est GFR ( Amer) 108.0 ml/min Est GFR (Non-Af Amer) 93.2 ml/min BUN/Creatinine Ratio 17.8 (10-20) Glucose 138 H (70-99(Fasting)) mg/dl Calcium 9.9 (8.6-10.3) mg/dl Total Bilirubin 0.5 (0.2-1.0) mg/dl AST 13 (13-39) U/L ALT 16 (7-52) U/L Alkaline Phosphatase 87 (34-104) U/L Total Protein 7.8 (6.0-8.3) gm/dl Albumin 4.4 (3.4-5.0) gm/dl Globulin 3.4 (2.5-4.0) gm/dl Albumin/Globulin Ratio 1.3 (0.9-2) Lipase 3 L (11-82) U/L Urine Color Yellow Urine Appearance Clear (Clear) Urine pH 5.0 (4.5-7.5) Ur Specific [place] > 1.045 H (1.000-1.030) Urine Protein 1+ H (Negative) Urine Glucose (UA) Negative (Negative) Urine Ketones Negative (Negative) Urine Blood Trace H (Negative) Urine Nitrite Negative (Negative) Urine Bilirubin Negative (Negative) Urine Urobilinogen Negative (Negative) Ur Leukocyte Esterase Negative (Negative) Urine WBC (Auto) 1-5 (0-5) /hpf Urine RBC (Auto) 0-4 (0-4) /hpf U Hyaline Cast (Auto) 10-30 H (0-5) /lpf U Epithel Cells (Auto) 5-10 H (0-5) /lpf Urine Bacteria (Auto) Negative (Negative) SARS-CoV-2, RNA, NAAT (NEGATIVE) 04/25/23 Range/Units 13:44 WBC (4.8-10.8) K/ul RBC (4.70-6.10) M/uL Hgb (14.0-18.0) g/dl Hct (42.0-52.0) % MCV (80.0-100.0) fL MCH (25.0-34.0) pg MCHC (32.0-36.0) g/dL RDW Std Deviation (36.4-46.3) fL RDW Coeff of Liliya (11.5-14.5) % Plt Count (130-400) K/uL MPV (9.4-12.4) fL Immature Gran % (Auto) % Neut % (Auto) % Lymph % (Auto) % [place] % (Auto) % Eos % (Auto) % Baso % (Auto) % Neut # (Auto) (1.40-6.50) K/uL Lymph # (Auto) (1.2-3.4) K/uL [place] # (Auto) (0.11-0.59) K/uL Eos # (Auto) (0-0.50) K/uL Baso # (Auto) (0-0.2) K/uL Immature Gran # (Auto) (0.01-0.20) K/uL Sodium (136-145) mmol/L Potassium (3.5-5.1) mmol/L Chloride (98-107) mmol/L Carbon Dioxide (21-32) mmol/L Anion Gap (3-11) BUN (6-23) mg/dl Creatinine (0.6-1.4) mg/dl Est Cr Clr Drug Dosing ml/min Est GFR ( Amer) ml/min Est GFR (Non-Af Amer) ml/min BUN/Creatinine Ratio (10-20) Glucose (70-99(Fasting)) mg/dl Calcium (8.6-10.3) mg/dl Total Bilirubin (0.2-1.0) mg/dl AST (13-39) U/L ALT (7-52) U/L Alkaline Phosphatase (34-104) U/L Total Protein (6.0-8.3) gm/dl Albumin (3.4-5.0) gm/dl Globulin (2.5-4.0) gm/dl Albumin/Globulin Ratio (0.9-2) Lipase (11-82) U/L Urine Color Urine Appearance (Clear) Urine pH (4.5-7.5) Ur Specific [place] (1.000-1.030) Urine Protein (Negative) Urine Glucose (UA) (Negative) Urine Ketones (Negative) Urine Blood (Negative) Urine Nitrite (Negative) Urine Bilirubin (Negative) Urine Urobilinogen (Negative) Ur Leukocyte Esterase (Negative) Urine WBC (Auto) (0-5) /hpf Urine RBC (Auto) (0-4) /hpf U Hyaline Cast (Auto) (0-5) /lpf U Epithel Cells (Auto) (0-5) /lpf Urine Bacteria (Auto) (Negative) SARS-CoV-2, RNA, NAAT NEGATIVE (NEGATIVE) Administered Medications Lactated Ringer's (Lr) 1,000 mls @ 100 mls/hr IV .Q10H ERIN Stop: 04/26/23 09:59 Last Admin: 04/25/23 14:30 Dose: 100 mls/hr Documented By: ANGELICA Morphine Sulfate (Morphine Sulfate 4 Mg/Ml 1 Ml Carp\\Vial) 4 mg IV Q4H PRN PRN Reason: Pain(5+) Stop: 05/09/23 14:07 Last Admin: 04/25/23 14:28 Dose: 4 mg Documented By: ANGELICA Discontinued Medications Albuterol (Albut/Ipratrop 3mg/0.5mg Neb 3 Ml Vial) 3 ml NEB NOW STA; Protocol Stop: 04/25/23 14:16 Last Admin: 04/25/23 14:28 Dose: 3 ml Documented By: ANGELICA Sodium Chloride (Nss) 500 mls @ 999 mls/hr IV .Q31M ONE Stop: 04/25/23 11:04 Last Infusion: 04/25/23 11:20 Dose: 0 mls/hr Documented By: Admin: 04/25/23 10:49 Dose: 999 mls/hr Documented By: ANGELICA Piperacillin Sod/Tazobactam Sod (Zosyn) 4.5 gm in 120 mls @ 240 mls/hr IV NOW ONE Stop: 04/25/23 13:42 Last Admin: 04/25/23 14:27 Dose: 240 mls/hr Documented By: ANGELICA Famotidine 20 mg/ Syringe 5 mls @ 2.5 mls/min IV NOW STA Stop: 04/25/23 14:07 Last Admin: 04/25/23 14:27 Dose: 2.5 mls/min Documented By: ANGELICA Pantoprazole Sodium 40 mg/ (Syringe) 10 mls @ 5 mls/min IV NOW ONE Stop: 04/25/23 14:16 Last Admin: 04/25/23 14:27 Dose: 5 mls/min Documented By: ANGELICA Ioversol (Optiray 320 100ml) 94 ml IV ONCE ONE Stop: 04/25/23 11:57 Last Admin: 04/25/23 11:57 Dose: 94 ml Documented By: FLORESITA Morphine Sulfate (Morphine Sulfate 4 Mg/Ml 1 Ml Carp\\Vial) 4 mg IV NOW STA Stop: 04/25/23 10:35 Last Admin: 04/25/23 10:48 Dose: 4 mg Documented By: ANGELICA Ondansetron HCl (Ondansetron Inj 2 Mg/Ml 2 Ml Vial) 4 mg IV NOW STA Stop: 04/25/23 10:35 Last Admin: 04/25/23 10:47 Dose: 4 mg Documented By: ANGELICA Imaging Data Radiologist's Impression: Abdomen/Pelvis CT 04/25/23 10:[address] WITH IV CONTRAST CT DOSE: 1054.55 mGy.cm HISTORY: lower abd pain TECHNIQUE: Multiaxial CT images of the abdomen and pelvis were performed following the use of intravenous contrast. A dose lowering technique was utilized adhering to the principles of ALARA. COMPARISON STUDY: Abdomen and pelvis CT 11/29/2022. FINDINGS: The lung bases are clear. Subtle sclerosis within the femoral heads consistent with small foci of avascular necrosis. No evidence for articular collapse. This remains unchanged. There is an old L1 compression deformity. No acute fractures identified. Cholecystectomy. This likely accounts for the mild bile duct dilatation which remains unchanged. Stable 5 mm hypodense lesion within the right hepatic dome and a 7 mm hypodense lesion within the left hepatic lobe. These favor small cysts. The main portal vein is patent. A few p unctate calcified granulomas within the spleen. Normal right adrenal gland. Stable left adrenal gland nodules favoring benign adenomas. A few punctate calcifications within the pancreas, unchanged. Calcified plaque within the normal caliber abdominal aorta. No retroperitoneal lymphadenopathy. The kidneys enhance normally. No hydronephrosis. No pelvic lymphadenopathy or pelvic free fluid. Moderate bladder wall thickening. The prostate gland is mildly enlarged. Focal thickening within the proximal sigmoid colon with pericolonic fat stranding consistent with an acute diverticulitis. There is a few small foci of gas and fluid surrounding the thickened sigmoid colon consistent with microperforation. There are few small developing pericolonic abscesses measuring up to 17 mm. These are not amenable to percutaneous change at this time. There is a thickened loop of distal ileum within the midabdomen adjacent to the sigmoid colon. This is likely reactive to the inflammatory change. No dilated lo ops of bowel to suggest an obstruction. Prior appendectomy. IMPRESSION: 1. Acute sigmoid diverticulitis with associated microperforation and a few small developing pericolonic abscesses measuring up to 17 mm. These are not amenable to percutaneous drainage at this time. 2. Thickening of the adjacent distal ileum within the midabdomen is likely reactive to the acute sigmoid diverticulitis. 3. Bladder wall thickening. This could be due to chronic outlet obstruction and underdistention. Recommend correlation with urinalysis. 4. Cholecystectomy and appendectomy. 5. 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 6. Additional findings as described above. ACT 112: Negative or not required by law. Electronically signed by: Jay Harrison M.D. 04/25/2023 12:45 PM Discharge Plan Visit Data Chief Complaint: Abdominal Pain Stated Complaint: SEVERE ABD PAINS ED Provider: Derrick Hagen Discharge Problem: Diverticulitis Forms Stand Alone Forms: My [facility]erron Prescriptions Prescriptions: No Action metformin 500 mg tablet extended release 24hr 1,000 mg PO DAILY Qty: 180 3RF Patient Comments: PT STATES HAS NOT FILLED MEDICATION FOR A WHILE Rx Instructions: take with breakfast. duloxetine 60 mg capsule,delayed release(DR/EC) 60 mg PO QAM Qty: 90 3RF furosemide 40 mg tablet 40 mg PO DAILY PRN (Reason: Edema) Qty: 90 3RF Patient Comments: HAS NOT TAKEN FOR A WHILE Rx Instructions: TAKE 1 TABLET BY MOUTH DAILY NEEDED FOR WEIGHT GAIN Trelegy Ellipta 100-62.5-25 mcg blister with device 1 inh inhalation DAILY Qty: 60 6RF albuterol sulfate 90 mcg/actuation HFA aerosol inhaler 2 puff INHALATION Q4H PRN (Reason: Wheezing) Qty: 8.5 11RF gabapentin 300 mg capsule 900 mg PO TID Qty: 270 5RF pantoprazole [Protonix] 40 mg tablet,delayed release (DR/EC) 40 mg PO BID Qty: 60 2RF atorvastatin 80 mg tablet 80 mg PO HS Qty: 90 3RF famotidine 40 mg tablet 40 mg PO BID Qty: 60 5RF oxycodone 15 mg tablet 15 mg PO Q6H Qty: 90 0RF morphine 15 mg tablet extended release 15 mg PO Q12H Qty: 60 0RF docusate sodium 100 mg capsule 100 mg PO BID PRN (Reason: Constipation) ipratropium-albuterol 0.5 mg-3 mg(2.5 mg base)/3 mL solution for nebulization 3 ml Inhalation QID PRN (Reason: Shortness Of Breath) Qty: 180 3RF (DME) OneTouch Verio test strips Strip See Rx Instructions .ROUTE .MEDSUPPLY Qty: 100 1RF Rx Instructions: As directed - check sugars 1x each day. (DME) lancets [OneTouch Delica Lancets] 33 gauge misc See Rx Instructions .ROUTE .MEDSUPPLY Qty: 100 1RF Rx Instructions: As directed - check blood sugars 1x daily. epinephrine [EpiPen] 0.3 mg/0.3 mL auto-injector 0.3 mg IM DIRECTED PRN (Reason: Allergic Reaction) metoprolol tartrate 50 mg tablet 25 mg PO BID Qty: 180 3RF dicyclomine 20 mg tablet 20 mg PO BID PRN (Reason: abdominal discomfort) Qty: 20 0RF tamsulosin 0.4 mg capsule 0.4 mg PO QAM Referrals Referrals: Mansoor Zhao MD [Primary Care Provider] -
[2023-04-25 11:18] LABS: Basophils # (auto) 0.06 K/uL (0-0.2); Basophils % (auto) 0.4 %; Eosinophils # (auto) 0.25 K/uL (0-0.50); Eosinophils % (auto) 1.5 %; Hematocrit (blood only) 42.6 % (42.0-52.0); Hemoglobin 14.2 g/dl (14.0-18.0); Immature Granulocytes # (auto) 0.14 K/uL (0.01-0.20); Immature Granulocytes % (auto) 0.8 %; Lymphocytes % (auto) 17.5 %; Mean Corpuscular Hemoglobin 31.7 pg (25.0-34.0); Mean Corpuscular Hgb Conc 33.3 g/dL (32.0-36.0); Mean Corpuscular Volume 95.1 fL (80.0-100.0); Mean Platelet Volume 9.6 fL (9.4-12.4); Monocytes # (auto) 1.24 K/uL (0.11-0.59); Monocytes % (auto) 7.5 %; Neutrophils # (auto) 11.95 K/uL (1.40-6.50); Neutrophils % (auto) 72.3 %; Platelet Count 335 K/uL (130-400); RDW Coefficient of Variation 15.3 % (11.5-14.5); RDW Standard Deviation 53.4 fL (36.4-46.3); Red Blood Count 4.48 M/uL (4.70-6.10); White Blood Count 16.54 K/ul (4.8-10.8)
[2023-04-25 11:25] LABS: Albumin Globulin Ratio 1.3 (0.9-2); Albumin Level 4.4 gm/dl (3.4-5.0); BUN Creatinine Ratio 17.8 (10-20); Bilirubin,Total 0.5 mg/dl (0.2-1.0); Calcium 9.9 mg/dl (8.6-10.3); Creatinine Clr Calc Pharmacy 85.5 ml/min; Est GFR (Non-African American) 93.2 ml/min; Globulin 3.4 gm/dl (2.5-4.0); Potassium 3.6 mmol/L (3.5-5.1); Total Protein 7.8 gm/dl (6.0-8.3)
[2023-04-25] MEDS ORDERED: OPTIRAY 320 100ml IV ONE (11:56)
--- NOTE | 2023-04-25 12:47 | CT Scan Report ---
ABDOMEN AND PELVIS CT WITH IV CONTRAST CT DOSE: 1054.55 mGy.cm HISTORY: lower abd pain TECHNIQUE: Multiaxial CT images of the abdomen and pelvis were performed following the use of intrave nous contrast. A dose lowering technique was utilized adhering to the principles of ALARA. COMPARISON STUDY: Abdomen and pelvis CT 11/29/2022. FINDINGS: The lung bases are clear. Subtle sclerosis within the femoral heads consistent with small f oci of avascular necrosis. No evidence for articular collapse. This remains unchanged. There is an ol d L1 compression deformity. No acute fractures identified. Cholecystectomy. This likely accounts for the mild bile duct dilatation which remains unchanged. Stable 5 mm hypodense lesion within the right hepatic dome and a 7 mm hypodense lesion within the left hepatic lobe. These favor small cysts. The m ain portal vein is patent. A few punctate calcified granulomas within the spleen. Normal right adrena l gland. Stable left adrenal gland nodules favoring benign adenomas. A few punctate calcifications wi thin the pancreas, unchanged. Calcified plaque within the normal caliber abdominal aorta. No retroper itoneal lymphadenopathy. The kidneys enhance normally. No hydronephrosis. No pelvic lymphadenopathy o r pelvic free fluid. Moderate bladder wall thickening. The prostate gland is mildly enlarged. Focal t hickening within the proximal sigmoid colon with pericolonic fat stranding consistent with an acute d iverticulitis. There is a few small foci of gas and fluid surrounding the thickened sigmoid colon con sistent with microperforation. There are few small developing pericolonic abscesses measuring up to 1 7 mm. These are not amenable to percutaneous change at this time. There is a thickened loop of distal ileum within the midabdomen adjacent to the sigmoid colon. This is likely reactive to the inflammato ry change. No dilated loops of bowel to suggest an obstruction. Prior appendectomy. IMPRESSION: 1. Acute sigmoid diverticulitis with associated microperforation and a few small developing pericolon ic abscesses measuring up to 17 mm. These are not amenable to percutaneous drainage at this time. 2. Thickening of the adjacent distal ileum within the midabdomen is likely reactive to the acute sigm oid diverticulitis. 3. Bladder wall thickening. This could be due to chronic outlet obstruction and underdistention. Tyson mmend correlation with urinalysis. 4. Cholecystectomy and appendectomy. 5. 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 6. Additional findings as described above. ACT 112: Negative or not required by law. Electronically signed by: Jay Harrison M.D. 04/25/2023 12:45 PM
[2023-04-25] MEDS ORDERED: PIPERACILLIN/TAZOBACTAM 4.5 GM/120 ML BAG IV ONE (13:13)
--- NOTE | 2023-04-25 13:40 | History & Physical Report ---
Date of Service April 25, 2023 Assessment & Plan (1) Sigmoid diverticulitis: Plan: -Admit to med/tele -Currently stable -Developed abd pain on 04/23 which has progressed, CT of the abd/pelvis w/IV con shows acute sigmoid diverticulitis with associated microperforation and a few small developing pericolonic abscesses measuring up to 17 mm. These are not amenable to percutaneous drainage at this time. -Patient noted to have a leukocytosis with left shift -Surgery will follow but no urgent OR plans at this time -S/P a dose of Zosyn in the ED, will continue with Zosyn for now -Will obtain STAT lactate on admission -NPO except meds today, can consider advancing diet as tolerate if improving tomorrow -IV tylenol for pain 1-4 and fever -4 mg IV morphine, q4h prn pain 5+, may need to increase his dose as he is on a large outpatient narcotic regimen and will hold PO narcotics for now -Will start LR for maintenance fluids while NPO -SQ Lovenox for DVT PPX -AM CBC, CMP, Mag (2) Hypertension: Plan: -Stable off antihypertensive, continue to monitor (3) COPD (chronic obstructive pulmonary disease): Plan: -Stable on RA -Uses 2L HS O2 and prn O2 for SOB -Continue home breathing treatments and prn DuoNebs l -Will give a DuoNeb treatment now as he is wheezy on exam -Continue to stress the importance of smoking cessation (4) DM II (diabetes mellitus, type II), controlled: Plan: -Hold metformin -Monitor BSG q4h, goal for now is 110-160 -Start with 5 units lantus BID, CF 50 q4h -Adjust regimen when he tolerates a PO diet (5) H/O supraventricular tachycardia: Plan: -Stable -Continue metoprolol (6) Chronic pain syndrome: Plan: -Hold PO morphine and oxycodone for now -Will continue with IV morphine for now, may need to increase the regimen (7) Tobacco abuse: Plan: -Nicotine patches ordered Plan The patient was discussed wt Dr. Schulte at the time of the admission History of Present Illness Chief Complaint: Abd pain Primary Care Provider: Mansoor Zhao MD Meet is a 57 year old male with a PMH significant for coronary artery disease, hypertension, hyperlipidemia, HFpEF, COPD, chronic hypoxia on intermittent 2 L as needed, continued tobacco abuse, pulmonary hypertension, SAUL,n chronic pain syndrome and diabetes who presented to the [facility] ED on 04/25/23 with a chief complaint of abd pain. In the ED the patient was noted to be tachycardic with a HR of 113 but otherwise stable. Labs were significant for a leukocytosis of 16 with left shift of 11.95. Ct of the abd/pelvis w/IV con was read as "1. Acute sigmoid diverticulitis with associated microperforation and a few small developing pericolonic abscesses measuring up to 17 mm. These are not amenable to percutaneous drainage at this time. 2. Thickening of the adjacent distal ileum within the midabdomen is likely reactive to the acute sigmoid diverticulitis. 3. Bladder wall thickening. This could be due to chronic outlet obstruction and underdistention. Recommend correlation with urinalysis. 4. Cholecystectomy and appendectomy. 5. 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 6. Additional findings as described above.". The ED staff spoke with General Surgery who will evaluate the patient and follow but have no immediate plans for surgical intervention at this time. They recommended starting IV antibiotics and IV fluids. Prior to admission the patient was given 500 mL NSS, a dose of Zosyn, 4mg IV morphine, and 4 mg IV zofran. At the time of the exam the patient was sitting in bed in no acute distress. He states that he started to develop sharp, intermittent, and generalized abdominal pain on 04/23. The pain is exacerbated with eating, his PO intake has been poor since his symptom developed. He states that he has had two episodes of watery diarrhea, one on 04/23 and one yesterday, he is still passing gas and denies bloody BM's. He denies any recent antibiotic use and denies having symptoms like these in the past. He denies fevers and chills, chest pain, increased SOB from baseline, vomiting, dysuria hematuria, LE swelling, and recent trauma. When asked, he states that he uses 2L O2 HS and as needed during the day for increased SOB. He is still smoking 1PPD but trying to cut back as he is scheduled to have surgery on his neck in late May. He is a full code and would want his to make medical decisions for him if he could not make them himself. Please refer to Dr. Schulte's attestation for any changes to the treatment plan Allergies Allergy/AdvReac Type Severity Reaction Status Date / Time bee venom protein (honey bee) Allergy Severe PASSES OUT Verified 04/25/23 12:11 naproxen Allergy Intermediate SEVERE RASH Verified 04/25/23 12:11 tramadol AdvReac Intermediate GI SYMPTOMS Verified 04/25/23 12:11 Home Medications Medication Instructions Recorded Confirmed Type docusate sodium 100 mg capsule 100 mg PO BID PRN Constipation 07/02/19 04/25/23 History blood sugar diagnostic (OneTouch #100 ea 02/15/21 03/06/23 Rx Verio test strips) lancets 33 gauge (OneTouch Delica #100 ea 02/15/21 03/06/23 Rx Lancets) epinephrine 0.3 mg/0.3 mL 0.3 mg IM DIRECTED PRN Allergic 02/21/22 04/25/23 History injection, auto-injector (EpiPen) Reaction metformin 500 mg tablet,extended 1,000 mg PO DAILY #180 tabs 05/09/22 04/25/23 Rx release 24hr duloxetine 60 mg capsule,delayed 60 mg PO QAM #90 caps 07/03/22 04/25/23 Rx release furosemide 40 mg tablet 40 mg PO DAILY PRN Edema #90 tabs 07/06/22 04/25/23 Rx fluticasone fur. 100 mcg-umeclid 1 inh inhalation DAILY #60 ea 09/26/22 04/25/23 Rx 62.5 mcg-vilant 25 mcg inhalat.powder (Trelegy Ellipta) ipratropium 0.5 mg-albuterol 3 mg 3 ml inhalation QID PRN Shortness 10/22/22 04/25/23 Rx (2.5 mg base)/3 mL nebulization Of Breath #180 mL soln metoprolol tartrate 50 mg tablet 25 mg PO BID #180 tabs 10/31/22 04/25/23 Rx dicyclomine 20 mg tablet 20 mg PO BID PRN abdominal 11/06/22 04/25/23 Rx discomfort #20 tabs albuterol sulfate 90 mcg/actuation 2 puff inhalation Q4H PRN Wheezing 11/27/22 04/25/23 Rx aerosol inhaler #8.5 grams gabapentin 300 mg capsule 900 mg PO TID #270 caps 12/13/22 04/25/23 Rx tamsulosin 0.4 mg capsule 0.4 mg PO QAM 01/04/23 04/25/23 History atorvastatin 80 mg tablet 80 mg PO HS #90 tabs 01/22/23 04/25/23 Rx pantoprazole 40 mg tablet,delayed 40 mg PO BID #60 tabs 01/22/23 04/25/23 Rx release (Protonix) famotidine 40 mg tablet 40 mg PO BID #60 tabs 03/07/23 04/25/23 Rx oxycodone 15 mg tablet 15 mg PO Q6H #90 tabs 04/15/23 04/25/23 Rx morphine 15 mg tablet,extended 15 mg PO Q12H #60 tabs 04/25/23 04/25/23 Rx release Past Med/Surg History Medical History Acid reflux Anaplasmosis Back pain Borderline diabetes CAD (coronary artery disease) Chronic bronchitis Chronic narcotic use Chronic obstructive pulmonary disease WEARS 2L HS (WILL WEAR DURING DAY PRN SOB) Chronic pain syndrome Chronic, continuous use of opioids Diabetes mellitus type 2, uncontrolled Diastolic CHF, acute on chronic Dyshidrotic eczema Excessive daytime sleepiness Folate deficiency Gait disturbance GERD (gastroesophageal reflux disease) H/O supraventricular tachycardia Hyperlipemia Hypertension Hypertension Insomnia Internal hemorrhoids Lumbar radiculopathy 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 SALDIVAR H/O vasectomy + REVERSAL History of cholecystectomy History of colonoscopy History of tooth extraction Hx of appendectomy Hx of arthroscopic knee surgery RT/LEFT S/P appy S/P cervical spinal fusion GOOD ROM S/P tonsillectomy and adenoidectomy Family History Father Heart disease age 37 - "heart attack" Hypertension Brother Coronary heart disease Hypertension Aunt Breast cancer Mother Hypertension Thyroid disease Other Allergies Cancer Diabetes No family history of adverse response to anesthesia No significant family history Denies family history of Tuberculosis Ovarian cancer Prostate cancer Emphysema, unspecified Colorectal cancer Lung disease Asthma Social History Smoking Status: Current every day smoker Tobacco Type: Cigarettes Age Started Using Tobacco: 19; packs per day: 1; Cigarettes Per Day: 20 CIG DAILY>ADVISED; Second Hand Exposure: No; Do You Dip or Chew Tobacco: No; Hx Alcohol Use: Yes Alcohol type: beer and hard liquor Hx Substance Use: No Preferred Language: Korean Communication Ability: Effective Visual Impairment: No Limitations Hearing Ability: Normal Javascript Ui Developer Required: No Beliefs That Will Affect Care: None marital status: Current Living Situation: Spouse Current Living Situation Comment: and Son current occupational status: disabled Feels Safe at Home: Yes Childhood Exposure to Second-Hand Smoke: Yes Diet: low carbohydrate caffeine: Yes Dental Care, Regularly: No Physical Activity Frequency: Does not Exercise Seatbelt Use: always Sunscreen Use: No Assistive Devices: Cane, Glasses, Hearing Aid - Bilateral, Nebulizer and Oxygen - at Night Physical Exam Physical Exam: Physical Exam: General: In no acute distress, stated age, chronically ill-appearing but non- toxic HEENT: Normocephalic, atraumatic, no scleral icterus, pupils around round, symmetrical, and reactive to light, dry mucus membranes, trachea midline, no thyromegaly Chest/Pulm: No respiratory distress, symmetrical chest expansion, scattered expiratory wheezing throughout Cardiac: RRR, no murmurs noted Abdomen: Negative for ascites and bruising, hypoactive bowel sounds, soft, tender to palpation throughout with increased tenderness in the BL lower abdomi nal olson, negative rebound tenderness, no peritoneal signs Musculoskeletal: Symmetrical and without signs of acute trauma, upper and lower extremities with full ROM, no atrophy, spasticity, or flaccidity Extremities: Radial, dorsalis pedis, and posterior tibial pulses are intact and symmetrical, no edema noted in the BL LE's Skin: Warm, dry, no rashes , lesions, or scars noted Neuro: Alert and oriented to person, place, month, year, and president, no focal defects, no tremors noted Psych: No acute distress, calm and cooperative during the exam Results & Data Results & Data Vital Signs (Past 12 Hours) Vital Signs Temp Pulse Pulse Resp BP BP Pulse Ox 04/25/23 10:26 04/25/23 10:15 95 H 15 136/89 96 04/25/23 10:20 36.6 C 113 H 18 132/100 98 O2 Del Method 04/25/23 10:26 Room Air 04/25/23 10:15 Room Air 04/25/23 10:20 Room Air Laboratory Results Abnormal lab results 04/25/23 04/25/23 Range/Units 10:44 10:44 WBC 16.54 H (4.8-10.8) K/ul RBC 4.48 L (4.70-6.10) M/uL RDW Std Deviation 53.4 H (36.4-46.3) fL RDW Coeff of Liliya 15.3 H (11.5-14.5) % Neut # (Auto) 11.95 H (1.40-6.50) K/uL [place] # (Auto) 1.24 H (0.11-0.59) K/uL Glucose 138 H (70-99(Fasting)) mg/dl Lipase 3 L (11-82) U/L Diagnostic Findings Abdomen/Pelvis CT 04/25/23 10:[address] WITH IV CONTRAST CT DOSE: 1054.55 mGy.cm HISTORY: lower abd pain TECHNIQUE: Multiaxial CT images of the abdomen and pelvis were performed following the use of intravenous contrast. A dose lowering technique was utilized adhering to the principles of ALARA. COMPARISON STUDY: Abdomen and pelvis CT 11/29/2022. FINDINGS: The lung bases are clear. Subtle sclerosis within the femoral heads consistent with small foci of avascular necrosis. No evidence for articular collapse. This remains unchanged. There is an old L1 compression deformity. No acute fractures identified. Cholecystectomy. This likely accounts for the mild bile duct dilatation which remains unchanged. Stable 5 mm hypodense lesion within the right hepatic dome and a 7 mm hypodense lesion within the left hepatic lobe. These favor small cysts. The main portal vein is patent. A few punctate calcified granulomas within the spleen. Normal right adrenal gland. Stable left adrenal gland nodules favoring benign adenomas. A few punctate calcifications within the pancreas, unchanged. Calcified plaque within the normal caliber abdominal aorta. No retroperitoneal lymphadenopathy. The kidneys enhance normally. No hydronephrosis. No pelvic lymphadenopathy or pelvic free fluid. Moderate bladder wall thickening. The prostate gland is mildly enlarged. Focal thickening within the proximal sigmoid colon with pericolonic fat stranding consistent with an acute diverticulitis. There is a few small foci of gas and fluid surrounding the thickened sigmoid colon consistent with microperforation. There are few small developing pericolonic abscesses measuring up to 17 mm. These are not amenable to percutaneous change at this time. There is a thickened loop of distal ileum within the midabdomen adjacent to the sigmoid colon. This is likely reactive to the inflammatory change. No dilated loops of bowel to suggest an obstruction. Prior appendectomy. IMPRESSION: 1. Acute sigmoid diverticulitis with associated microperforation and a few small developing pericolonic abscesses measuring up to 17 mm. These are not amenable to percutaneous drainage at this time. 2. Thickening of the adjacent distal ileum within the midabdomen is likely reactive to the acute sigmoid diverticulitis. 3. Bladder wall thickening. This could be due to chronic outlet obstruction and underdistention. Recommend correlation with urinalysis. 4. Cholecystectomy and appendectomy. 5. 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 6. Additional findings as described above. ACT 112: Negative or not required by law. Electronically signed by: Jay Harrison M.D. 04/25/2023 12:45 PM ECG Additional Comments: Will obtain ECG on admission due to tachycardia on arrival Code Status & VTE Plan Code Status Full code VTE Prophylaxis Plan VTE Prophylaxis will be ordered: Yes Supervising Physician Co-Signing Physician Notes I personally saw and examined the patient. I verified all ralph points and agree with Abhi Maza PA-C with the following exceptions and/or additions: 57 year old male presents to the ER with abdominal pain, currently 8/10, no radi ation, exacerbated by eating, associated diarrhea for 2 days. O/E HS RRR, no murmurs, Chest CTAB, Abdo generalized pain worse in LLQ with guarding but no rebound tenderness A/P Diverticulitis with abscess - NPO, IV fluids, Zosyn, consult surgery - concerning how diffuse his abdominal pain is with abscess but hopefully will resolve with conservative measures PG Care Time/CCT Total # of Minutes Spent Total Time Spent with Patient: Total time spent is greater than 50% in coordination of care (as documented) at patient's floor/unit and/or counseling patient: Coding [place] [address] INT INP/OBS CARE 3/75MIN Patient Type Established Medical Decision Making High Complexity Diagnoses Sigmoid diverticulitis K57.32 Hypertension I10 COPD (chronic obstructive pulmonary disease) J44.9 DM II (diabetes mellitus, type II), controlled E11.9 H/O supraventricular tachycardia Z86.79 Chronic pain syndrome G89.4 Tobacco abuse Z72.0
[2023-04-25] MEDS ORDERED: GLUCOSE 10 TAB/TUBE PO PRN (13:51)
[2023-04-25] MEDS ORDERED: CARBOHYDRATES FOR HYPOGLYCEMIA PO PRN (13:51)
[2023-04-25] MEDS ORDERED: DEXTROSE 50% 50 ML SYRINGE IV PRN (13:51)
[2023-04-25] MEDS ORDERED: GLUCOSE 40% GEL 15 GM TUBE PO PRN (13:51)
[2023-04-25] MEDS ORDERED: GLUCAGON FOR INJ 1 MG VIAL SQ PRN (13:51)
[2023-04-25] MEDS ORDERED: FAMOTIDINE 20 MG in SYRINGE 3 ML IV STA (14:06)
[2023-04-25] MEDS ORDERED: PANTOprazole 40 MG in SYRINGE 0 ML IV ONE (14:15)
[2023-04-25] MEDS ORDERED: ALBUT/IPRATROP 3MG/0.5MG NEB 3 ML VIAL NEB STA (14:15)
[2023-04-25] MEDS: MoRPHine SULFATE 4 MG/ML 1 ML CARP\\VIAL IV PRN (14:28)
[2023-04-25] MEDS: LACTATED RINGER'S 1,000 ML IV SCH (14:30)
[2023-04-25 14:33] LABS: Appearance Urine Clear (Clear); Bacteria Urine Automated Negative (Negative); Bilirubin Urine Negative (Negative); Blood Urine Trace (Negative); Color Urine Yellow; Glucose Urine UA Negative (Negative); Ketones Urine Negative (Negative); Leukocyte Esterase Urine Negative (Negative); Nitrite Urine Negative (Negative); Protein Urine 1+ (Negative); RBC Urine Automated 0-4 /hpf (0-4); Specific Gravity Urine > 1.045 (1.000-1.030); Urobilinogen Urine Negative (Negative)
--- NOTE | 2023-04-25 16:21 | Electrocardiogram Report ---
Test Reason : Blood Pressure : / mmHG Vent. Rate : 094 BPM Atrial Rate : 094 BPM P-R Int : 132 ms QRS Dur : 100 ms QT Int : 378 ms P-R-T Axes : 048 055 057 degrees QTc Int : 472 ms Normal sinus rhythm Normal ECG When compared with ECG of 28-NOV-2022 19:22, No significant change was found Confirmed by Mansoor Sadler ([id number]) on 04/25/2023 4:21:17 PM Referred By: REFERRED SELF Confirmed By:Kenney Sadler
--- NOTE | 2023-04-25 16:48 | Surgery Consultation ---
Date of Consultation April 25, 2023 Assessment & Plan (1) Sigmoid diverticulitis: This is a 57yM with a PMH of COPD, tobacco use, HTN, CHF, DM2, back surgery, who presents to the [facility] ED on 04/25/23 with complaints of abdominal pain that started Saturday, associated with nausea and low appetite. In the ER he underwent a CT a/p that revealed evidence of sigmoid diverticulitis with associated microperforation and a few small developing pericolonic abscesses measuring up to 17 mm, that are not amenable to percutaneous drainage. Labs show a WBC of 16, Hbg 14, lactate 0.9. Vitals show patient is afebrile with stable BPs and HR in the 90-100s. On exam abdomen is softly distended, with tenderness to palpation in the bilateral upper and lower abdomen, worse in suprapubic region. For now would give patient a trial of supportive care, keep NPO with IVF and IV abx. No plans for acute surgical intervention at this time. He understands that if this were to happen it would result in temporary colostomy. We will follow along closely. History of Present Illness History of Present Illness This is a 57yM with a PMH of COPD, tobacco use, HTN, DM2, CHF, back surgery, who presents to the [facility] ED on 04/25/23 with complaints of abdominal pain. Pain started Saturday morning and he mostly laid around on the couch all day /saturday. Symptoms associated with nausea, low appetite and some chills. He denies any fevers. Today he came in because he could not take the pain for one more day. He states the pain is mostly located in the upper and bilateral lower abdomen. At its worst he rated it a 15/10 in severity. It has lessened since being in the ER and receiving some pain meds. He did undergo a CT a/p that revealed evidence of sigmoid diverticulitis with associated microperforation and a few small developing pericolonic abscesses measuring up to 17 mm, that are not amenable to percutaneous drainage. He reports a history of diverticulitis many years ago and believes he was treated with oral abx. Last time he ate was some hamburger helper around 7pm yesterday. He had a colonoscopy he is unsure when but less than 10 years ago, he thinks maybe about 5 years ago. Patient's past abdominal surgical history includes and appendectomy and cholecystectomy. Allergies Allergy/AdvReac Type Severity Reaction Status Date / Time bee venom protein (honey bee) Allergy Severe PASSES OUT Verified 04/25/23 12:11 naproxen Allergy Intermediate SEVERE RASH Verified 04/25/23 12:11 tramadol AdvReac Intermediate GI SYMPTOMS Verified 04/25/23 12:11 Home Medications Medication Instructions Recorded Confirmed Type docusate sodium 100 mg capsule 100 mg PO BID PRN Constipation 07/02/19 04/25/23 History blood sugar diagnostic (OneTouch #100 ea 02/15/21 03/06/23 Rx Verio test strips) lancets 33 gauge (OneTouch Delica #100 ea 02/15/21 03/06/23 Rx Lancets) epinephrine 0.3 mg/0.3 mL 0.3 mg IM DIRECTED PRN Allergic 02/21/22 04/25/23 History injection, auto-injector (EpiPen) Reaction metformin 500 mg tablet,extended 1,000 mg PO DAILY #180 tabs 05/09/22 04/25/23 Rx release 24hr duloxetine 60 mg capsule,delayed 60 mg PO QAM #90 caps 07/03/22 04/25/23 Rx release furosemide 40 mg tablet 40 mg PO DAILY PRN Edema #90 tabs 07/06/22 04/25/23 Rx fluticasone fur. 100 mcg-umeclid 1 inh inhalation DAILY #60 ea 09/26/22 04/25/23 Rx 62.5 mcg-vilant 25 mcg inhalat.powder (Trelegy Ellipta) ipratropium 0.5 mg-albuterol 3 mg 3 ml inhalation QID PRN Shortness 10/22/22 04/25/23 Rx (2.5 mg base)/3 mL nebulization Of Breath #180 mL soln metoprolol tartrate 50 mg tablet 25 mg PO BID #180 tabs 10/31/22 04/25/23 Rx dicyclomine 20 mg tablet 20 mg PO BID PRN abdominal 11/06/22 04/25/23 Rx discomfort #20 tabs albuterol sulfate 90 mcg/actuation 2 puff inhalation Q4H PRN Wheezing 11/27/22 04/25/23 Rx aerosol inhaler #8.5 grams gabapentin 300 mg capsule 900 mg PO TID #270 caps 12/13/22 04/25/23 Rx tamsulosin 0.4 mg capsule 0.4 mg PO QAM 01/04/23 04/25/23 History atorvastatin 80 mg tablet 80 mg PO HS #90 tabs 01/22/23 04/25/23 Rx pantoprazole 40 mg tablet,delayed 40 mg PO BID #60 tabs 01/22/23 04/25/23 Rx release (Protonix) famotidine 40 mg tablet 40 mg PO BID #60 tabs 03/07/23 04/25/23 Rx oxycodone 15 mg tablet 15 mg PO Q6H #90 tabs 04/15/23 04/25/23 Rx morphine 15 mg tablet,extended 15 mg PO Q12H #60 tabs 04/25/23 04/25/23 Rx release Patient History Medical History Acid reflux Anaplasmosis Back pain Borderline diabetes CAD (coronary artery disease) Chronic bronchitis Chronic narcotic use Chronic obstructive pulmonary disease WEARS 2L HS (WILL WEAR DURING DAY PRN SOB) Chronic pain syndrome Chronic, continuous use of opioids Diabetes mellitus type 2, uncontrolled Diastolic CHF, acute on chronic Dyshidrotic eczema Excessive daytime sleepiness Folate deficiency Gait disturbance GERD (gastroesophageal reflux disease) H/O supraventricular tachycardia Hyperlipemia Hypertension Hypertension Insomnia Internal hemorrhoids Lumbar radiculopathy 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 SALDIVAR H/O vasectomy + REVERSAL History of cholecystectomy History of colonoscopy History of tooth extraction Hx of appendectomy Hx of arthroscopic knee surgery RT/LEFT S/P appy S/P cervical spinal fusion GOOD ROM S/P tonsillectomy and adenoidectomy Family History Father Heart disease age 37 - "heart attack" Hypertension Brother Coronary heart disease Hypertension Aunt Breast cancer Mother Hypertension Thyroid disease Other Allergies Cancer Diabetes No family history of adverse response to anesthesia No significant family history Denies family history of Tuberculosis Ovarian cancer Prostate cancer Emphysema, unspecified Colorectal cancer Lung disease Asthma Social History Smoking Status: Current every day smoker Tobacco Type: Cigarettes Age Started Using Tobacco: 19; packs per day: 1; Cigarettes Per Day: 20 CIG DAILY>ADVISED; Second Hand Exposure: No; Do You Dip or Chew Tobacco: No; Hx Alcohol Use: Yes Alcohol type: beer and hard liquor Hx Substance Use: No Preferred Language: Ukrainian Communication Ability: Effective Visual Impairment: No Limitations Hearing Ability: Normal Community Health Educator Required: No Beliefs That Will Affect Care: None marital status: Current Living Situation: Spouse Current Living Situation Comment: and Son current occupational status: disabled Feels Safe at Home: Yes Childhood Exposure to Second-Hand Smoke: Yes Diet: low carbohydrate caffeine: Yes Dental Care, Regularly: No Physical Activity Frequency: Does not Exercise Seatbelt Use: always Sunscreen Use: No Assistive Devices: Cane, Glasses, Hearing Aid - Bilateral, Nebulizer and Oxygen - at Night Review of Systems Constitutional: + chills and + anorexia; no fever Respiratory: no dyspnea Cardiovascular: no chest pain Gastrointestinal: + abdominal pain (upper and lower bilateral abdominal pain), + bloating, + nausea and + change in bowel habits; no vomiting Physical Exam Physical Exam: awake/alert, no distress Respiratory: normal respiratory effort Cardiovascular: HR 90-100s Gastrointestinal (Abdomen): Inspection/Auscultation: + abdomen distended Percussion/Palpation: + abdomen tender (tender in bilateral upper and lower abdomen, worse in suprapubic region) and abdomen soft Results & Data Vital Signs (Past 12 Hours) Vital Signs Temp Pulse Pulse Resp BP BP Pulse Ox 04/25/23 16:00 91 H 18 127/82 94 04/25/23 14:42 93 H 04/25/23 14:00 85 19 136/90 94 04/25/23 12:15 91 H 18 131/85 95 04/25/23 10:26 04/25/23 10:15 95 H 15 136/89 96 04/25/23 10:20 36.6 C 113 H 18 132/100 98 O2 Del Method 04/25/23 16:00 04/25/23 14:42 04/25/23 14:00 04/25/23 12:15 04/25/23 10:26 Room Air 04/25/23 10:15 Room Air 04/25/23 10:20 Room Air Diagnostic Findings ABDOMEN AND PELVIS CT WITH IV CONTRAST CT DOSE: 1054.55 mGy.cm HISTORY: lower abd pain TECHNIQUE: Multiaxial CT images of the abdomen and pelvis were performed following the use of intravenous contrast. A dose lowering technique was utilized adhering to the principles of ALARA. COMPARISON STUDY: Abdomen and pelvis CT 11/29/2022. FINDINGS: The lung bases are clear. Subtle sclerosis within the femoral heads consistent with small foci of avascular necrosis. No evidence for articular collapse. This remains unchanged. There is an old L1 compression deformity. No acute fractures identified. Cholecystectomy. This likely accounts for the mild bile duct dilatation which remains unchanged. Stable 5 mm hypodense lesion within the right hepatic dome and a 7 mm hypodense lesion within the left hepatic lobe. These favor small cysts. The main portal vein is patent. A few punctate calcified granulomas within the spleen. Normal right adrenal gland. Stable left adrenal gland nodules favoring benign adenomas. A few punctate calcifications within the pancreas, unchanged. Calcified plaque within the normal caliber abdominal aorta. No retroperitoneal lymphadenopathy. The kidneys enhance normally. No hydronephrosis. No pelvic lymphadenopathy or pelvic free fluid. Moderate bladder wall thickening. The prostate gland is mildly enlarged. Focal thickening within the proximal sigmoid colon with pericolonic fat stranding consistent with an acute diverticulitis. There is a few small foci of gas and fluid surrounding the thickened sigmoid colon consistent with microperforation. There are few small developing pericolonic abscesses measuring up to 17 mm. These are not amenable to percutaneous change at this time. There is a thickened loop of distal ileum within the midabdomen adjacent to the sigmoid colon. This is likely reactive to the inflammatory change. No dilated loops of bowel to suggest an obstruction. Prior appendectomy. IMPRESSION: 1. Acute sigmoid diverticulitis with associated microperforation and a few small developing pericolonic abscesses measuring up to 17 mm. These are not amenable to percutaneous drainage at this time. 2. Thickening of the adjacent distal ileum within the midabdomen is likely reactive to the acute sigmoid diverticulitis. 3. Bladder wall thickening. This could be due to chronic outlet obstruction and underdistention. Recommend correlation with urinalysis. 4. Cholecystectomy and appendectomy. 5. 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 6. Additional findings as described above. ACT 112: Negative or not required by law Electronically signed by: Jay Harrison M.D. 04/25/2023 12:45 PM PG Care Time/CCT Total # of Minutes Spent Total Time Spent with Patient: Total time spent is greater than 50% in coordination of care (as documented) at patient's floor/unit and/or counseling patient: Coding Level of Care Code 30484 OP VST NEW LOW 30-44 MIN Diagnoses Sigmoid diverticulitis K57.32
[2023-04-25] MEDS ORDERED: ACETAMINOPHEN 1,000 MG/100 ML VIAL IV PRN (17:53)
[2023-04-25] MEDS ORDERED: ALBUT/IPRATROP 3MG/0.5MG NEB 3 ML VIAL INH PRN (17:53)
[2023-04-25] MEDS: INSULIN ASPART PER UNIT CHARGE SC SCH ×2 (18:53→20:22)
[2023-04-25] MEDS: PIPERACILLIN/TAZOBACTAM 4.5 GM in DEXTROSE 5% 100 ML IV SCH (20:43)
[2023-04-25] MEDS: GABAPENTIN 300 MG CAP PO SCH (20:45)
[2023-04-25] MEDS: ENOXAPARIN INJ 40 MG/0.4 ML SYR SQ SCH (22:06)
[2023-04-25] MEDS: FAMOTIDINE 20 MG in SYRINGE 3 ML IV SCH (22:06)
[2023-04-25] MEDS: METOPROLOL TARTRATE 25 MG TAB PO SCH (22:08)
[2023-04-25] MEDS: LANTUS PER UNIT CHARGE SQ SCH (22:13)
[2023-04-26] MEDS: MoRPHine SULFATE 4 MG/ML 1 ML CARP\\VIAL IV PRN ×5 (00:39→20:24)
[2023-04-26] MEDS: INSULIN ASPART PER UNIT CHARGE SC SCH ×6 (00:42→20:13)
[2023-04-26] MEDS: LACTATED RINGER'S 1,000 ML IV SCH (01:00)
[2023-04-26] MEDS: GABAPENTIN 300 MG CAP PO SCH ×4 (01:39→20:24)
[2023-04-26] MEDS: PIPERACILLIN/TAZOBACTAM 4.5 GM in DEXTROSE 5% 100 ML IV SCH ×3 (04:53→20:24)
[2023-04-26 06:29] LABS: Basophils # (auto) 0.05 K/uL (0-0.2); Basophils % (auto) 0.4 %; Eosinophils # (auto) 0.22 K/uL (0-0.50); Eosinophils % (auto) 1.8 %; Hematocrit (blood only) 34.2 % (42.0-52.0); Hemoglobin 11.7 g/dl (14.0-18.0); Immature Granulocytes # (auto) 0.06 K/uL (0.01-0.20); Immature Granulocytes % (auto) 0.5 %; Lymphocytes # (auto) 2.62 K/uL (1.2-3.4); Lymphocytes % (auto) 21.4 %; Mean Corpuscular Hemoglobin 32.1 pg (25.0-34.0); Mean Corpuscular Hgb Conc 34.2 g/dL (32.0-36.0); Mean Platelet Volume 9.7 fL (9.4-12.4); Monocytes # (auto) 1.02 K/uL (0.11-0.59); Monocytes % (auto) 8.3 %; Neutrophils # (auto) 8.29 K/uL (1.40-6.50); Neutrophils % (auto) 67.6 %; Platelet Count 303 K/uL (130-400); RDW Coefficient of Variation 15.2 % (11.5-14.5); RDW Standard Deviation 52.2 fL (36.4-46.3); Red Blood Count 3.64 M/uL (4.70-6.10); White Blood Count 12.26 K/ul (4.8-10.8)
[2023-04-26 06:38] LABS: Albumin Globulin Ratio 1.2 (0.9-2); Albumin Level 3.6 gm/dl (3.4-5.0); BUN Creatinine Ratio 13.9 (10-20); Bilirubin,Total 0.6 mg/dl (0.2-1.0); Creatinine Clr Calc Pharmacy 97.4 ml/min; Est GFR (African American) 113.9 ml/min; Est GFR (Non-African American) 98.3 ml/min; Potassium 4.3 mmol/L (3.5-5.1); Total Protein 6.6 gm/dl (6.0-8.3)
--- NOTE | 2023-04-26 07:38 | Surgery Progress Note ---
Date of Service April 26, 2023 Assessment & Plan (1) Diverticulitis: Plan: WBC down to 12,000. Vitals are stable. No urgent indication for surgical intervention at this time. I would keep him n.p.o. another [address] Xenia Redmond covering for the weekend if any questions or concerns. (2) DM II (diabetes mellitus, type II), controlled: Admission and Anticipated Discharge Date Admission Date: April 25, 2023 Subjective Patient seen. Resting comfortably. Still having pain but considerably better than yesterday. He states he feels hungry. Physical Exam Constitutional: WD/WN, vitals as above no acute distress and not ill appearing Eyes: PERRL, conjunctivae normal, anicteric sclerae EOM intact bilaterally ENMT: external ear and nose normal, oropharynx normal Ears: no hearing impairment Neck: trachea midline, no thyromegaly Respiratory: normal respiratory effort; no respiratory distress and does not use accessory muscles Cardiovascular: Rate/Rhythm: regular rate and regular rhythm Gastrointestinal (Abdomen): Soft. Positive suprapubic and left lower quadrant tenderness. Mild guarding but no peritonitis Skin: no rashes, warm and dry Psychiatric: Orientation: alert, oriented x 3 and cooperative Results & Data Vital Signs (Past 12 Hours) Vital Signs Temp Pulse Pulse Pulse Resp BP BP 04/26/23 07:09 89 04/26/23 04:31 37.0 C 88 20 138/88 04/26/23 00:11 36.9 C 82 16 148/92 H 04/26/23 01:47 85 04/26/23 01:47 04/25/23 23:19 78 18 120/86 04/25/23 23:16 83 18 120/86 04/25/23 22:43 85 Pulse Ox O2 Del Method O2 Flow Rate 04/26/23 07:09 04/26/23 04:31 95 Nasal Cannula 2 04/26/23 00:11 97 Room Air 04/26/23 01:47 04/26/23 01:47 Room Air 04/25/23 23:19 94 Room Air 04/25/23 23:16 94 04/25/23 22:43 PG Care Time/CCT Total # of Minutes Spent Total Time Spent with Patient: Total time spent is greater than 50% in coordination of care (as documented) at patient's floor/unit and/or counseling patient: Coding Level of Care Code 82970 SUB INP/OBS CARE MIN Diagnoses Diverticulitis K57.92 DM II (diabetes mellitus, type II), controlled E11.9
[2023-04-26] MEDS: FLUTICASONE FUROATE 100MCG 14 PUFFS/INHALER INH SCH (08:12)
[2023-04-26] MEDS: UMECLIDINIUM/VILANTEROL 62.5/25MCG 7 PUFFS/INHALER INH SCH (08:12)
[2023-04-26] MEDS: DULoxetine HCL 60 MG CAP PO SCH (08:13)
[2023-04-26] MEDS: TAMSULOSIN HCL 0.4 MG CAP PO SCH (08:13)
[2023-04-26] MEDS: NICOTINE 21 MG/24 HR TDSY TD SCH (08:14)
[2023-04-26] MEDS: LANTUS PER UNIT CHARGE SQ SCH ×2 (08:16→20:13)
[2023-04-26] MEDS: CHECK fentaNYL PATCH PLACEMENT SCH ×2 (08:21→15:42)
[2023-04-26] MEDS: fentaNYL 25 MCG/HR TDSY TD SCH (08:21)
[2023-04-26] MEDS ORDERED: NON-FORMULARY MEDICATION (Fluticasone-Umeclidin-Vilanter [Trelegy Ellipta] 100-62.5-25 mcg INH SCH (09:00)
[2023-04-26] MEDS: METOPROLOL TARTRATE 25 MG TAB PO SCH ×2 (09:07→20:25)
[2023-04-26] MEDS: FAMOTIDINE 20 MG in SYRINGE 3 ML IV SCH ×2 (09:07→20:33)
[2023-04-26] MEDS ORDERED: PANTOprazole 40 MG in SYRINGE 0 ML IV SCH (11:00)
--- NOTE | 2023-04-26 11:57 | Hospitalist Progress Note ---
Date of Service April 26, 2023 Assessment & Plan (1) Sigmoid diverticulitis: Plan: Appears to be improving. Appreciate surgery consultation and recommendations. Continue n.p.o. status for now. Zosyn day 2. Serial labs. We will consider starting clear liquids tomorrow, April 27 if he is doing well (2) Hypertension: Plan: Stable. Will use IV hydralazine as needed. Resume usual oral medications when taking p.o. (3) COPD (chronic obstructive pulmonary disease): Plan: Stable. Nebulizer treatments as needed (4) DM II (diabetes mellitus, type II), controlled: Plan: Currently NPO. Holding metformin. Sliding scale coverage as needed. Low-dose Lantus for the time being (5) H/O supraventricular tachycardia: Plan: Stable . Continue metoprolol when taking p.o. (6) Chronic pain syndrome: Plan: Oral narcotics are on hold due to n.p.o. status. Fentanyl patch applied to prevent narcotic withdrawal. (7) Tobacco abuse: Plan: Nicotine patches ordered . Smoking cessation recommend Plan Anticipate eventual discharge to home in the next several days Admission and Anticipated Discharge Date Admission Date: April 25, 2023 Subjective Alert and oriented. He seems to be improving. We will start clear liquids tomorrow. Surgery entry noted. Fentanyl patch applied to prevent opioid withdrawal. Will restart usual oral pain medications when he is taking p.o. Review of Systems Review of Systems: Constitutional-no fever or chills ENT-no blurred vision, no double vision, no epistaxis, no sore throat Respiratory-no cough, no wheezing, no shortness of breath Cardiac-no palpitations, no chest pain, no syncope GI-no nausea, vomiting, diarrhea, melena, hematochezia. He does have left lower quadrant tenderness -no urinary retention, no urinary incontinence, no dysuria, no hematuria Musculoskeletal-no joint pain, no muscle tenderness Skin-no bruising, no rashes, no pruritus Neuro-no isolated weakness, no paresthesia, no weakness Psych-no depression, no anxiety Physical Exam Physical Exam: General-alert and oriented x3, no fevers, no chills HEENT-head atraumatic and normocephalic, pupils equal and reactive to light, extraocular muscles intact Neck-no lymphadenopathy or thyromegaly, trachea midline Chest-clear to auscultation percussion. No rales wheezing or rhonchi Cardiac-regular rate and rhythm, normal S1 and S2, no murmurs Abdomen-normal bowel sounds, no hepatosplenomegaly. Mild left lower quadrant tenderness. No rebound or guarding Extremities-no cyanosis, clubbing, or edema Neuro-cranial nerves II through XII intact, motor and sensory function within normal limits, strength symmetrical , no focal deficits Psych-normal affect, normal mood Results & Data Results & Data Vital Signs (Past 12 Hours) Vital Signs Temp Pulse Pulse Resp BP BP Pulse Ox 04/26/23 11:21 37.4 C 77 20 134/87 93 04/26/23 09:19 04/26/23 07:45 36.7 C 97 H 16 136/92 94 04/26/23 07:09 89 04/26/23 04:31 37.0 C 88 20 138/88 95 04/26/23 00:11 36.9 C 82 16 148/92 H 97 04/26/23 01:47 85 04/26/23 01:47 O2 Del Method O2 Flow Rate 04/26/23 11:21 Room Air 04/26/23 09:19 Room Air 04/26/23 07:45 Room Air 04/26/23 07:09 04/26/23 04:31 Nasal Cannula 2 04/26/23 00:11 Room Air 04/26/23 01:47 04/26/23 01:47 Room Air Laboratory Results 04/26/23 05:59 04/26/23 05:59 PG Care Time/CCT Total # of Minutes Spent Total Time Spent with Patient: Total time spent is greater than 50% in coordination of care (as documented) at patient's floor/unit and/or counseling patient: Coding Level of Care Code 62306 SUB INP/OBS CARE 3/50MIN Diagnoses Sigmoid diverticulitis K57.32 Hypertension I10 COPD (chronic obstructive pulmonary disease) J44.9 DM II (diabetes mellitus, type II), controlled E11.9 H/O supraventricular tachycardia Z86.79 Chronic pain syndrome G89.4 Tobacco abuse Z72.0
[2023-04-26] MEDS: SODIUM CHLORIDE 0.9% 1000ML 1,000 ML IV SCH ×2 (12:10→20:36)
[2023-04-26 15:03] LABS: A calco-baum cmplx NotReported Not Detected (NotDetected); Bact fragilis Not Reported Not Detected (NotDetected); C auris Not Reported Not Detected (NotDetected); Calbicans Not Reported Not Detected (NotDetected); Candida glabrata Not Reported Not Detected (NotDetected); Candida krusei Not Reported Not Detected (NotDetected); Cneoformans/gatti Not Reported Not Detected (NotDetected); Cparapsilosis Not Reported Not Detected (NotDetected); Ctropicalis Not Reported Not Detected (NotDetected); E cloacae compx Not Reported Not Detected (NotDetected); Efaecalis Not Reported Not Detected (NotDetected); Efaecium Not Reported Not Detected (NotDetected); Enterobacterales Not Reported Not Detected (NotDetected); Escherichia coli Not Reported Not Detected (NotDetected); H influenzae Not Reported Not Detected (NotDetected); K aerogenes Not Reported Not Detected (NotDetected); Koxytoca Not Reported Not Detected (NotDetected); Kpneumoniae grp Not Reported Not Detected (NotDetected); Lmonocyt Not Reported Not Detected (NotDetected); N meningitidis Not Reported Not Detected (NotDetected); P aeruginosa Not Reported Not Detected (NotDetected); Proteus spp Not Reported Not Detected (NotDetected); Salmonella spp Not Reported Not Detected (NotDetected); Smarcescens Not Reported Not Detected (NotDetected); Staph lugdunensis Not Reported Not Detected (NotDetected); Staph spp. Not Reported DETECTED (NotDetected); Staphaureus Not Reported Not Detected (NotDetected); Staphepi Not Reported Not Detected (NotDetected); Stenmaltophilia Not Reported Not Detected (NotDetected); Strep agal(GrpB) Not Reported Not Detected (NotDetected); Strep pneum Not Reported Not Detected (NotDetected); Strep pyog (GrpA) Not Reported Not Detected (NotDetected); Strep spp Not Reported Not Detected (NotDetected)
[2023-04-26 15:12] LABS: Staphylococcus spp. DETECTED (NotDetected)
[2023-04-26] MEDS: ENOXAPARIN INJ 40 MG/0.4 ML SYR SQ SCH (20:24)
[2023-04-26] MEDS ORDERED: ATORVASTATIN 40 MG TAB PO SCH (21:00)
[2023-04-27] MEDS: CHECK fentaNYL PATCH PLACEMENT SCH ×3 (00:56→16:36)
[2023-04-27] MEDS: INSULIN ASPART PER UNIT CHARGE SC SCH ×6 (00:56→20:51)
[2023-04-27] MEDS: MoRPHine SULFATE 4 MG/ML 1 ML CARP\\VIAL IV PRN ×5 (01:39→21:00)
[2023-04-27] MEDS: PIPERACILLIN/TAZOBACTAM 4.5 GM in DEXTROSE 5% 100 ML IV SCH ×3 (03:30→21:00)
[2023-04-27] MEDS: SODIUM CHLORIDE 0.9% 1000ML 1,000 ML IV SCH ×2 (05:13→21:00)
[2023-04-27] MEDS: NICOTINE 21 MG/24 HR TDSY TD SCH (08:10)
[2023-04-27] MEDS: FAMOTIDINE 20 MG in SYRINGE 3 ML IV SCH ×2 (08:11→21:03)
[2023-04-27] MEDS: FLUTICASONE FUROATE 100MCG 14 PUFFS/INHALER INH SCH (08:16)
[2023-04-27] MEDS: UMECLIDINIUM/VILANTEROL 62.5/25MCG 7 PUFFS/INHALER INH SCH (08:16)
[2023-04-27] MEDS: METOPROLOL TARTRATE 25 MG TAB PO SCH ×2 (08:19→21:01)
[2023-04-27] MEDS: TAMSULOSIN HCL 0.4 MG CAP PO SCH (08:19)
[2023-04-27] MEDS: DULoxetine HCL 60 MG CAP PO SCH (08:19)
[2023-04-27] MEDS: GABAPENTIN 300 MG CAP PO SCH ×3 (08:19→21:01)
[2023-04-27] MEDS: LANTUS PER UNIT CHARGE SQ SCH (08:29)
[2023-04-27 08:38] LABS: Basophils # (auto) 0.05 K/uL (0-0.2); Basophils % (auto) 0.5 %; Eosinophils # (auto) 0.19 K/uL (0-0.50); Hematocrit (blood only) 34.3 % (42.0-52.0); Hemoglobin 11.5 g/dl (14.0-18.0); Immature Granulocytes # (auto) 0.07 K/uL (0.01-0.20); Immature Granulocytes % (auto) 0.7 %; Lymphocytes # (auto) 2.29 K/uL (1.2-3.4); Lymphocytes % (auto) 23.6 %; Mean Corpuscular Hemoglobin 31.9 pg (25.0-34.0); Mean Corpuscular Hgb Conc 33.5 g/dL (32.0-36.0); Mean Platelet Volume 9.4 fL (9.4-12.4); Monocytes # (auto) 0.81 K/uL (0.11-0.59); Monocytes % (auto) 8.3 %; Neutrophils % (auto) 64.9 %; Platelet Count 298 K/uL (130-400); RDW Coefficient of Variation 14.7 % (11.5-14.5); RDW Standard Deviation 51.8 fL (36.4-46.3); Red Blood Count 3.61 M/uL (4.70-6.10); White Blood Count 9.71 K/ul (4.8-10.8)
[2023-04-27 08:57] LABS: BUN Creatinine Ratio 13.3 (10-20); Calcium 8.6 mg/dl (8.6-10.3); Creatinine Clr Calc Pharmacy 92.7 ml/min; Est GFR (African American) 111.6 ml/min; Est GFR (Non-African American) 96.3 ml/min
[2023-04-27] MEDS: PANTOprazole 40 MG TAB PO SCH (09:47)
[2023-04-27 09:55] LABS: Adenovirus F 40/41 PCR Not Detected (NotDetected); Astrovirus PCR Not Detected (NotDetected); Campylobacter PCR Not Detected (NotDetected); Cryptosporidium PCR Not Detected (NotDetected); Cyclospora cayetanensis PCR Not Detected (NotDetected); Entamoeba histolytica PCR Not Detected (NotDetected); Enteroaggregative E.coli(EAEC) Not Detected (NotDetected); Enteropathogenic E.coli (EPEC) Not Detected (NotDetected); Enterotoxigenic E.coli (ETEC) Not Detected (NotDetected); Giardia lamblia PCR Not Detected (NotDetected); Norovirus GI/GII PCR Not Detected (NotDetected); Plesiomonas shigelloides PCR Not Detected (NotDetected); Rotavirus A PCR Not Detected (NotDetected); Salmonella PCR Not Detected (NotDetected); Sapovirus PCR Not Detected (NotDetected); Shiga-like Toxin E.coli (STEC) Not Detected (NotDetected); Shigella/Enteroinvasive E.coli Not Detected (NotDetected); Vibrio cholerae PCR Not Detected (NotDetected); Vibrio species PCR Not Detected (NotDetected); Yersinia enterocolitica PCR Not Detected (NotDetected)
--- NOTE | 2023-04-27 11:51 | Hospitalist Progress Note ---
Date of Service April 27, 2023 Assessment & Plan (1) Sigmoid diverticulitis: Plan: Appears to be improving. Appreciate surgery consultation and recommendations. He is now on clear liquids and IV fluids have been tapered down. Zosyn day 3. Serial labs. (2) Hypertension: Plan: Stable. Will use IV hydralazine as needed. Resume usual oral medications tomorrow (3) COPD (chronic obstructive pulmonary disease): Plan: Stable. Nebulizer treatments as needed (4) DM II (diabetes mellitus, type II), controlled: Plan: Now on clear liquids . Holding metformin. Sliding scale coverage as needed. Lantus was started on admission to replace the metformin but will be discontinued today, April 27, due to borderline low glucose. (5) H/O supraventricular tachycardia: Plan: Stable . Continue metoprolol when taking p.o. (6) Chronic pain syndrome: Plan: Oral narcotics are on hold due to n.p.o. status. Fentanyl patch applied to prevent narcotic withdrawal. (7) Tobacco abuse: Plan: Nicotine patches ordered . Smoking cessation recommend Plan Anticipate eventual discharge to home soon. Possibly home tomorrow, April 28 Admission and Anticipated Discharge Date Admission Date: April 25, 2023 Subjective Alert and oriented. No complaints. He is improving. Clear liquids have been started and IV fluids taper down. He remains on intravenous Zosyn, day 3. White blood cell count is down to 9700. Lantus has been discontinued due to borderline low glucose. This was started on admission to replace his metformin. We will simply use sliding scale coverage for now. No opioid withdrawal syndrome with fentanyl patch in place. His usual oral narcotics will be started at discharge and the fentanyl patch discontinued at discharge Review of Systems Review of Systems: Constitutional-no fever or chills ENT-no blurred vision, no double vision, no epistaxis, no sore throat Respiratory-no cough, no wheezing, no shortness of breath Cardiac-no palpitations, no chest pain, no syncope GI-no nausea, vomiting, diarrhea, melena, hematochezia. He does have left lower quadrant tenderness -no urinary retention, no urinary incontinence, no dysuria, no hematuria Musculoskeletal-no joint pain, no muscle tenderness Skin-no bruising, no rashes, no pruritus Neuro-no isolated weakness, no paresthesia, no weakness Psych-no depression, no anxiety Physical Exam Physical Exam: General-alert and oriented x3, no fevers, no chills HEENT-head atraumatic and normocephalic, pupils equal and reactive to light, extraocular muscles intact Neck-no lymphadenopathy or thyromegaly, trachea midline Chest-clear to auscultation percussion. No rales wheezing or rhonchi Cardiac-regular rate and rhythm, normal S1 and S2, no murmurs Abdomen-normal bowel sounds, no hepatosplenomegaly. Mild left lower quadrant tenderness. No rebound or guarding Extremities-no cyanosis, clubbing, or edema Neuro-cranial nerves II through XII intact, motor and sensory function within normal limits, strength symmetrical , no focal deficits Psych-normal affect, normal mood Results & Data Results & Data Vital Signs (Past 12 Hours) Vital Signs Temp Pulse Pulse Resp BP Pulse Ox O2 Del Method 04/27/23 11:20 37.1 C 82 20 145/86 H 93 Room Air 04/27/23 07:36 36.6 C 89 18 106/75 93 Room Air 04/27/23 07:22 78 04/27/23 04:10 36.7 C 87 20 91/47 L 93 Room Air Laboratory Results 04/27/23 08:00 04/27/23 08:00 PG Care Time/CCT Total # of Minutes Spent Total Time Spent with Patient: Total time spent is greater than 50% in coordination of care (as documented) at patient's floor/unit and/or counseling patient: Coding Level of Care Code 81195 SUB INP/OBS CARE 3/50MIN Diagnoses Sigmoid diverticulitis K57.32 Hypertension I10 COPD (chronic obstructive pulmonary disease) J44.9 DM II (diabetes mellitus, type II), controlled E11.9 H/O supraventricular tachycardia Z86.79 Chronic pain syndrome G89.4 Tobacco abuse Z72.0
--- NOTE | 2023-04-27 12:20 | Surgery Progress Note ---
This patient was seen and examined with the surgical PA this am. He had a clear liquid tray in front of him when we walked in the room. Denies cramping with oral intake and has improved/decreased abdominal pain. We let him go for now as his tray was already half gone. He will go slow. Do not advance further until surgical evaluation in the am. Date of Service April 27, 2023 Assessment & Plan (1) Diverticulitis: Plan: 04/27/2023 57 yo male with improving acute sigmoid diverticulitis. WBC within normal limits this morning. He reports that he is feeling much better today. Hospitalist did begin patient on clear liquid diet this morning. Patient strongly urged to go slow with diet. Would recommend keeping clear liquid diet for rest of today and if he tolerates well can consider full liquids tomorrow, Saturday. Patient seen and examined with Dr. Boyd. (2) DM II (diabetes mellitus, type II), controlled: Admission and Anticipated Discharge Date Admission Date: April 25, 2023 Delbert Dsouza is sitting at bedside- he is eating a breakfast tray of clear liquids. He reports that he is feeling well. He reports that his abdominal pain is nearly resolved. He denies any nausea or vomiting. Review of Systems Constitutional: no fever and no chills Respiratory: no cough, no chest congestion, no dyspnea and no dyspnea on exertion Cardiovascular: no chest pain Gastrointestinal: + abdominal pain (significantly improved, nearly resolved. ); no nausea and no vomiting Physical Exam Constitutional: WD/WN, vitals as above no acute distress and not ill appearing Eyes: PERRL, conjunctivae normal, anicteric sclerae EOM intact bilaterally ENMT: external ear and nose normal, oropharynx normal Ears: no hearing impairment Neck: trachea midline, no thyromegaly Respiratory: normal respiratory effort; no respiratory distress and does not use accessory muscles Cardiovascular: Rate/Rhythm: regular rate and regular rhythm Gastrointestinal (Abdomen): Inspection/Auscultation: normal bowel sounds; abdomen not distended Percussion/Palpation: abdomen soft; abdomen nontender, no guarding and abdomen not rigid Skin: no rashes, warm and dry Psychiatric: Orientation: alert, oriented x 3 and cooperative Results & Data Vital Signs (Past 12 Hours) Vital Signs Temp Pulse Pulse Resp BP Pulse Ox O2 Del Method 04/27/23 11:20 37.1 C 82 20 145/86 H 93 Room Air 04/27/23 07:36 36.6 C 89 18 106/75 93 Room Air 04/27/23 07:22 78 04/27/23 04:10 36.7 C 87 20 91/47 L 93 Room Air PG Care Time/CCT Total # of Minutes Spent Total Time Spent with Patient: Total time spent is greater than 50% in coordination of care (as documented) at patient's floor/unit and/or counseling patient: Coding Level of Care Code 91584 SUB INP/OBS CARE 11/07MIN Diagnoses Diverticulitis K57.92 DM II (diabetes mellitus, type II), controlled E11.9
[2023-04-27] MEDS: ENOXAPARIN INJ 40 MG/0.4 ML SYR SQ SCH (20:59)
[2023-04-28] MEDS: CHECK fentaNYL PATCH PLACEMENT SCH ×3 (00:01→15:55)
[2023-04-28] MEDS: INSULIN ASPART PER UNIT CHARGE SC SCH ×5 (00:01→20:34)
[2023-04-28] MEDS: MoRPHine SULFATE 4 MG/ML 1 ML CARP\\VIAL IV PRN ×5 (01:10→17:57)
[2023-04-28] MEDS: PIPERACILLIN/TAZOBACTAM 4.5 GM in DEXTROSE 5% 100 ML IV SCH ×3 (04:17→19:52)
[2023-04-28] MEDS: GABAPENTIN 300 MG CAP PO SCH ×3 (08:05→19:52)
[2023-04-28] MEDS: METOPROLOL TARTRATE 25 MG TAB PO SCH ×2 (08:05→19:52)
[2023-04-28] MEDS: PANTOprazole 40 MG TAB PO SCH (08:06)
[2023-04-28] MEDS: DULoxetine HCL 60 MG CAP PO SCH (08:06)
[2023-04-28] MEDS: TAMSULOSIN HCL 0.4 MG CAP PO SCH (08:06)
[2023-04-28] MEDS: NICOTINE 21 MG/24 HR TDSY TD SCH (08:07)
[2023-04-28] MEDS: UMECLIDINIUM/VILANTEROL 62.5/25MCG 7 PUFFS/INHALER INH SCH (08:07)
[2023-04-28] MEDS: FLUTICASONE FUROATE 100MCG 14 PUFFS/INHALER INH SCH (08:08)
[2023-04-28 08:35] LABS: Basophils # (auto) 0.06 K/uL (0-0.2); Basophils % (auto) 0.6 %; Eosinophils # (auto) 0.22 K/uL (0-0.50); Eosinophils % (auto) 2.2 %; Hemoglobin 11.2 g/dl (14.0-18.0); Immature Granulocytes # (auto) 0.08 K/uL (0.01-0.20); Immature Granulocytes % (auto) 0.8 %; Lymphocytes % (auto) 25.5 %; Mean Corpuscular Hemoglobin 31.9 pg (25.0-34.0); Mean Corpuscular Hgb Conc 33.9 g/dL (32.0-36.0); Mean Platelet Volume 9.7 fL (9.4-12.4); Monocytes # (auto) 0.74 K/uL (0.11-0.59); Monocytes % (auto) 7.6 %; Neutrophils # (auto) 6.19 K/uL (1.40-6.50); Neutrophils % (auto) 63.3 %; Platelet Count 305 K/uL (130-400); RDW Coefficient of Variation 14.6 % (11.5-14.5); RDW Standard Deviation 50.6 fL (36.4-46.3); Red Blood Count 3.51 M/uL (4.70-6.10); White Blood Count 9.79 K/ul (4.8-10.8)
[2023-04-28 08:59] LABS: BUN Creatinine Ratio 8.4 (10-20); Calcium 8.8 mg/dl (8.6-10.3); Creatinine Clr Calc Pharmacy 92.7 ml/min; Est GFR (African American) 111.6 ml/min; Est GFR (Non-African American) 96.3 ml/min; Potassium 3.8 mmol/L (3.5-5.1)
[2023-04-28] MEDS: FAMOTIDINE 20 MG in SYRINGE 3 ML IV SCH ×2 (09:02→19:52)
--- NOTE | 2023-04-28 11:51 | Surgery Progress Note ---
I saw and examined this patient with the surgical PA. I agree with this plan. Date of Service April 28, 2023 Assessment & Plan (1) Diverticulitis: Plan: 04/28/2023 Afebrile. WBC within normal limits. Meet has increased abdominal pain this morning after eating a full liquid diet for breakfast. Will back him down to NPO with sips and chips. Recommend keeping him NPO for rest of day and re-evaluate tomorrow morning. He is passing flatus and does feel like he is going to have a bowel movement. Ambulation encouraged. 04/27/2023 57 yo male with improving acute sigmoid diverticulitis. WBC within normal limits this morning. He reports that he is feeling much better today. Hospitalist did begin patient on clear liquid diet this morning. Patient strongly urged to go slow with diet. Would recommend keeping clear liquid diet for rest of today and if he tolerates well can consider full liquids tomorrow, Saturday. Patient seen and examined with Dr. Boyd. (2) DM II (diabetes mellitus, type II), controlled: Admission and Anticipated Discharge Date Admission Date: April 25, 2023 Subjective Meet is laying in bed and reports increase in abdominal pain after breakfast this morning. He was advanced to full liquid diet after tolerating clear liquid diet yesterday. He denies nausea or vomiting. Review of Systems Constitutional: no fever and no chills Respiratory: no cough, no chest congestion, no dyspnea and no dyspnea on exertion Cardiovascular: no chest pain Gastrointestinal: + abdominal pain (in lower abdomen. ) and + bloating; no nausea and no vomiting Physical Exam Constitutional: WD/WN, vitals as above no acute distress and not ill appearing Eyes: PERRL, conjunctivae normal, anicteric sclerae EOM intact bilaterally ENMT: external ear and nose normal, oropharynx normal Ears: no hearing impairment Neck: trachea midline, no thyromegaly Respiratory: normal respiratory effort; no respiratory distress and does not use accessory muscles Cardiovascular: Rate/Rhythm: regular rate and regular rhythm Gastrointestinal (Abdomen): Inspection/Auscultation: normal bowel sounds; abdomen not distended Percussion/Palpation: + abdomen tender (diffusely tender) and abdomen soft; no guarding and abdomen not rigid Skin: no rashes, warm and dry Psychiatric: Orientation: alert, oriented x 3 and cooperative Results & Data Vital Signs (Past 12 Hours) Vital Signs Temp Pulse Pulse Resp BP BP Pulse Ox 04/28/23 11:32 36.7 C 73 16 155/90 H 94 04/28/23 08:00 04/28/23 07:25 36.8 C 70 18 167/91 H 93 04/28/23 07:03 55 L 04/28/23 03:47 36.7 C 87 18 137/77 97 O2 Del Method 04/28/23 11:32 Room Air 04/28/23 08:00 Room Air 04/28/23 07:25 Room Air 04/28/23 07:03 04/28/23 03:47 Room Air PG Care Time/CCT Total # of Minutes Spent Total Time Spent with Patient: Total time spent is greater than 50% in coordination of care (as documented) at patient's floor/unit and/or counseling patient: Coding Level of Care Code 39717 SUB INP/OBS CARE 11/07MIN Diagnoses Diverticulitis K57.92 DM II (diabetes mellitus, type II), controlled E11.9
[2023-04-28] MEDS: SODIUM CHLORIDE 0.9% 1000ML 1,000 ML IV SCH (14:09)
--- NOTE | 2023-04-28 14:09 | Hospitalist Progress Note ---
Date of Service April 28, 2023 Assessment & Plan (1) Sigmoid diverticulitis: Plan: Increased abdominal discomfort after eating breakfast. Repeat abdomen CT scan is pending. Appreciate surgery consultation and recommendations. Zosyn day 4. Serial labs. (2) Hypertension: Plan: Stable. Will use IV hydralazine as needed. Resume usual oral medications prior to discharge (3) COPD (chronic obstructive pulmonary disease): Plan: Stable. Nebulizer treatments as needed (4) DM II (diabetes mellitus, type II), controlled: Plan: Holding metformin. Sliding scale coverage as needed. Lantus was started on admission to replace the metformin but was discontinued toda on April 27, due to borderline low glucose. (5) H/O supraventricular tachycardia: Plan: Stable . Continue metoprolol when taking p.o. (6) Chronic pain syndrome: Plan: Oral narcotics are on hold due to n.p.o. status. Fentanyl patch applied to prevent narcotic withdrawal. (7) Tobacco abuse: Plan: Nicotine patches ordered . Smoking cessation recommend Plan Anticipate eventual discharge to home soon. Admission and Anticipated Discharge Date Admission Date: April 25, 2023 Subjective The patient states he has some increased abdominal discomfort after for liquid diet this morning. Repeat abdominal CT scan is pending. Continue intravenous Zosyn, day 4. White blood cell count remains stable. Appreciate general surgery consultation and recommendations Review of Systems Review of Systems: Constitutional-no fever or chills ENT-no blurred vision, no double vision, no epistaxis, no sore throat Respiratory-no cough, no wheezing, no shortness of breath Cardiac-no palpitations, no chest pain, no syncope GI-no nausea, vomiting, diarrhea, melena, hematochezia. He does have left lower quadrant tenderness which he states worsened after eating this morning -no urinary retention, no urinary incontinence, no dysuria, no hematuria Musculoskeletal-no joint pain, no muscle tenderness Skin-no bruising, no rashes, no pruritus Neuro-no isolated weakness, no paresthesia, no weakness Psych-no depression, no anxiety Physical Exam Physical Exam: General-alert and oriented x3, no fevers, no chills HEENT-head atraumatic and normocephalic, pupils equal and reactive to light, extraocular muscles intact Neck-no lymphadenopathy or thyromegaly, trachea midline Chest-clear to auscultation percussion. No rales wheezing or rhonchi Cardiac-regular rate and rhythm, normal S1 and S2, no murmurs Abdomen-normal bowel sounds, no hepatosplenomegaly. Mild left lower quadrant tenderness. No rebound or guarding Extremities-no cyanosis, clubbing, or edema Neuro-cranial nerves II through XII intact, motor and sensory function within normal limits, strength symmetrical , no focal deficits Psych-normal affect, normal mood Results & Data Results & Data Vital Signs (Past 12 Hours) Vital Signs Temp Pulse Pulse Resp BP BP Pulse Ox 04/28/23 11:32 36.7 C 73 16 155/90 H 94 04/28/23 08:00 04/28/23 07:25 36.8 C 70 18 167/91 H 93 04/28/23 07:03 55 L 04/28/23 03:47 36.7 C 87 18 137/77 97 O2 Del Method 04/28/23 11:32 Room Air 04/28/23 08:00 Room Air 04/28/23 07:25 Room Air 04/28/23 07:03 04/28/23 03:47 Room Air Laboratory Results 04/28/23 07:39 04/28/23 07:39 PG Care Time/CCT Total # of Minutes Spent Total Time Spent with Patient: Total time spent is greater than 50% in coordination of care (as documented) at patient's floor/unit and/or counseling patient: Coding Level of Care Code 96943 SUB INP/OBS CARE 3/50MIN Diagnoses Sigmoid diverticulitis K57.32 Hypertension I10 COPD (chronic obstructive pulmonary disease) J44.9 DM II (diabetes mellitus, type II), controlled E11.9 H/O supraventricular tachycardia Z86.79 Chronic pain syndrome G89.4 Tobacco abuse Z72.0
[2023-04-28] MEDS: ENOXAPARIN INJ 40 MG/0.4 ML SYR SQ SCH (19:53)
--- NOTE | 2023-04-28 21:16 | CT Scan Report ---
CT abdomen wo con CLINICAL HISTORY: diverticulitis with microperf TECHNIQUE: Helical axial images of the abdomen and pelvis were obtained. Automated dose lowering tech niques and/or adjustment according to patient size were utilized for this exam. This exam was perfor med without intravenous contrast. CT DOSE: 741.15 mGy.cm COMPARISON: Comparison is made to CT abdomen pelvis 04/25/2023 FINDINGS: Lower chest: No acute abnormality. Liver: Unremarkable. No focal lesions are seen. Gallbladder and biliary tree: Patient is status post cholecystectomy. No intra- or extrahepatic bilia ry ductal dilation. Pancreas: Unremarkable, no focal lesions. Spleen: Calcifications are noted in the spleen compatible with prior granulomatous disease. Adrenals: Bilateral adrenal gland thickening is seen. Kidneys and ureters: Unremarkable. Bowel: Unremarkable where visualized. Lymph nodes Retroperitoneal: Unremarkable. Mesenteric: Unremarkable. Peritoneum: Trace free fluid is seen in the right paracolic gutter. Vessels: Atherosclerotic calcifications are seen. Abdominal wall: A fat-containing umbilical hernia is seen. Bones: Degenerative changes in the visualized spine. Redemonstration of compression deformity of L1. IMPRESSION: No abnormalities are seen within the abdomen. Of note, previously noted multiple perforations were in the pelvis. Trace free fluid in the right pericolic gutter may be reactive. ACT 112: Negative or not required by law. Electronically signed by: Eliseo Chu M.D. 04/28/2023 9:15 PM
[2023-04-29] MEDS: SODIUM CHLORIDE 0.9% 1000ML 1,000 ML IV SCH ×2 (00:25→10:09)
[2023-04-29] MEDS: CHECK fentaNYL PATCH PLACEMENT SCH ×3 (00:40→17:58)
[2023-04-29] MEDS: MoRPHine SULFATE 4 MG/ML 1 ML CARP\\VIAL IV PRN ×4 (01:10→12:06)
[2023-04-29] MEDS: PIPERACILLIN/TAZOBACTAM 4.5 GM in DEXTROSE 5% 100 ML IV SCH ×3 (03:46→20:18)
[2023-04-29 07:01] LABS: Basophils # (auto) 0.06 K/uL (0-0.2); Basophils % (auto) 0.5 %; Eosinophils # (auto) 0.23 K/uL (0-0.50); Eosinophils % (auto) 1.8 %; Hematocrit (blood only) 33.9 % (42.0-52.0); Hemoglobin 11.2 g/dl (14.0-18.0); Immature Granulocytes # (auto) 0.11 K/uL (0.01-0.20); Immature Granulocytes % (auto) 0.9 %; Lymphocytes # (auto) 2.58 K/uL (1.2-3.4); Lymphocytes % (auto) 20.6 %; Mean Corpuscular Hemoglobin 31.4 pg (25.0-34.0); Mean Platelet Volume 9.7 fL (9.4-12.4); Monocytes # (auto) 0.91 K/uL (0.11-0.59); Monocytes % (auto) 7.3 %; Neutrophils # (auto) 8.62 K/uL (1.40-6.50); Neutrophils % (auto) 68.9 %; Platelet Count 346 K/uL (130-400); RDW Coefficient of Variation 14.2 % (11.5-14.5); RDW Standard Deviation 49.6 fL (36.4-46.3); Red Blood Count 3.57 M/uL (4.70-6.10); White Blood Count 12.51 K/ul (4.8-10.8)
[2023-04-29 07:23] LABS: BUN Creatinine Ratio 6.5 (10-20); Calcium 8.6 mg/dl (8.6-10.3); Creatinine Clr Calc Pharmacy 99.9 ml/min; Est GFR (African American) 115.1 ml/min; Est GFR (Non-African American) 99.3 ml/min; Potassium 3.5 mmol/L (3.5-5.1)
[2023-04-29] MEDS: INSULIN ASPART PER UNIT CHARGE SC SCH ×4 (09:00→21:22)
[2023-04-29] MEDS: fentaNYL 25 MCG/HR TDSY TD SCH (09:20)
[2023-04-29] MEDS: NICOTINE 21 MG/24 HR TDSY TD SCH (09:31)
[2023-04-29] MEDS: DULoxetine HCL 60 MG CAP PO SCH (09:35)
[2023-04-29] MEDS: FLUTICASONE FUROATE 100MCG 14 PUFFS/INHALER INH SCH (09:37)
[2023-04-29] MEDS: GABAPENTIN 300 MG CAP PO SCH ×3 (09:38→20:15)
[2023-04-29] MEDS: TAMSULOSIN HCL 0.4 MG CAP PO SCH (09:39)
[2023-04-29] MEDS: PANTOprazole 40 MG TAB PO SCH (09:39)
[2023-04-29] MEDS: METOPROLOL TARTRATE 25 MG TAB PO SCH ×2 (09:50→20:15)
[2023-04-29] MEDS: UMECLIDINIUM/VILANTEROL 62.5/25MCG 7 PUFFS/INHALER INH SCH (09:52)
[2023-04-29] MEDS: FAMOTIDINE 20 MG in SYRINGE 3 ML IV SCH ×2 (10:09→20:18)
--- NOTE | 2023-04-29 11:31 | Surgery Progress Note ---
Date of Service April 29, 2023 Assessment & Plan (1) Diverticulitis: Plan: I think we can retry clear liquids again today. I did tell if the pain recurs after drinking he should stop again altogether. No urgent indication for surgical invention at this time. Continue IV antibiotics Admission and Anticipated Discharge Date Admission Date: April 25, 2023 Subjective Patient seen. Was having more pain yesterday after eating. His diet was back down to n.p.o. CT scan was performed which did not show any dramatic changes from his admission CT scan. This morning he is feeling better. Currently minimal discomfort and certainly better than yesterday Physical Exam Constitutional: WD/WN, vitals as above no acute distress and not ill appearing Eyes: PERRL, conjunctivae normal, anicteric sclerae EOM intact bilaterally ENMT: external ear and nose normal, oropharynx normal Ears: no hearing impairment Neck: trachea midline, no thyromegaly Respiratory: normal respiratory effort; no respiratory distress and does not use accessory muscles Cardiovascular: Rate/Rhythm: regular rate and regular rhythm Gastrointestinal (Abdomen): Soft. Minimal suprapubic tenderness. No peritoneal signs Skin: no rashes, warm and dry Psychiatric: Orientation: alert, oriented x 3 and cooperative Results & Data Vital Signs (Past 12 Hours) Vital Signs Temp Pulse Pulse Pulse Resp BP Pulse Ox 04/29/23 09:31 04/29/23 09:27 61 04/29/23 09:35 74 160/90 H 04/29/23 07:18 36.7 C 66 16 144/92 H 96 04/29/23 03:43 36.8 C 61 20 161/81 H 95 O2 Del Method O2 Flow Rate 04/29/23 09:31 Room Air, Nasal Cannula 2 04/29/23 09:27 04/29/23 09:35 04/29/23 07:18 Room Air 04/29/23 03:43 Room Air PG Care Time/CCT Total # of Minutes Spent Total Time Spent with Patient: Total time spent is greater than 50% in coordination of care (as documented) at patient's floor/unit and/or counseling patient: Coding Level of Care Code 22202 SUB INP/OBS CARE 2/35MIN Diagnoses Diverticulitis K57.92
--- NOTE | 2023-04-29 11:43 | Hospitalist Progress Note ---
Date of Service April 29, 2023 Assessment & Plan (1) Sigmoid diverticulitis: Plan: Abdomen appears worse today, April 29. He is n.p.o. again. Continue IV fluids. Continue Zosyn, day 5. Unfortunately only the abdomen was imaged on CT scan yesterday. Will obtain pelvic CT scan today, April 29. (2) Hypertension: Plan: Stable. Will use IV hydralazine as needed. Resume usual oral medications prior to discharge (3) COPD (chronic obstructive pulmonary disease): Plan: Stable. Nebulizer treatments as needed (4) DM II (diabetes mellitus, type II), controlled: Plan: Holding metformin. Sliding scale coverage as needed. Lantus was started on admission to replace the metformin but was discontinued on April 27 due to borderline low glucose. (5) H/O supraventricular tachycardia: Plan: Stable . Continue metoprolol (6) Chronic pain syndrome: Plan: Oral narcotics are on hold due to n.p.o. status. Fentanyl patch applied to prevent narcotic withdrawal. (7) Tobacco abuse: Plan: Nicotine patches ordered . Smoking cessation recommend Plan eventual discharge to home Admission and Anticipated Discharge Date Admission Date: April 25, 2023 Subjective He appears uncomfortable and has increased abdominal pain. White blood cell count jumped to 12,500. He has been made n.p.o. and frequency of morphine has been increased to every 2 hours as needed. Unfortunately, only the abdomen was imaged on CT scan yesterday. Will obtain pelvic CT scan today, April 29. Continue Zosyn, day 5 Review of Systems Review of Systems: Constitutional-no fever or chills ENT-no blurred vision, no double vision, no epistaxis, no sore throat Respiratory-no cough, no wheezing, no shortness of breath Cardiac-no palpitations, no chest pain, no syncope GI-diffuse abdominal pain. Hypoactive bowel sounds. Clear liquid intolerance - no urinary retention, no urinary incontinence, no dysuria, no hematuria Musculoskeletal-no joint pain, no muscle tenderness Skin-no bruising, no rashes, no pruritus Neuro-no isolated weakness, no paresthesia, no weakness Psych-no depression, no anxiety Physical Exam Physical Exam: General-alert and oriented x3, no fevers, no chills HEENT-head atraumatic and normocephalic, pupils equal and reactive to light, extraocular muscles intact Neck-no lymphadenopathy or thyromegaly, trachea midline Chest-clear to auscultation percussion. No rales wheezing or rhonchi Cardiac-regular rate and rhythm, normal S1 and S2, no murmurs Abdomen-diffusely tender. Bowel sounds are hypoactive. No overt rebound tenderness. Extremities-no cyanosis, clubbing, or edema Neuro-cranial nerves II through XII intact, motor and sensory function within normal limits, strength symmetrical , no focal deficits Psych-normal affect, normal mood Results & Data Results & Data Vital Signs (Past 12 Hours) Vital Signs Temp Pulse Pulse Pulse Resp BP Pulse Ox 04/29/23 09:31 04/29/23 09:27 61 04/29/23 09:35 74 160/90 H 04/29/23 07:18 36.7 C 66 16 144/92 H 96 04/29/23 03:43 36.8 C 61 20 161/81 H 95 O2 Del Method O2 Flow Rate 04/29/23 09:31 Room Air, Nasal Cannula 2 04/29/23 09:27 04/29/23 09:35 04/29/23 07:18 Room Air 04/29/23 03:43 Room Air Laboratory Results 04/29/23 05:46 04/29/23 05:46 PG Care Time/CCT Total # of Minutes Spent Total Time Spent with Patient: Total time spent is greater than 50% in coordination of care (as documented) at patient's floor/unit and/or counseling patient: Coding Level of Care Code 69157 SUB INP/OBS CARE 3/50MIN Diagnoses Sigmoid diverticulitis K57.32 Hypertension I10 COPD (chronic obstructive pulmonary disease) J44.9 DM II (diabetes mellitus, type II), controlled E11.9 H/O supraventricular tachycardia Z86.79 Chronic pain syndrome G89.4 Tobacco abuse Z72.0
--- NOTE | 2023-04-29 12:02 | CT Scan Report ---
CT pelvis wo con CT DOSE: 607.90 mGy.cm CLINICAL HISTORY: sigmoid diverticulitis with microperforation . Lower abdominal pain. Follow-up. TECHNIQUE: Multiaxial CT images of the pelvis are performed without contrast. A dose lowering techni que was utilized adhering to the principles of ALARA. COMPARISON STUDY: Abdomen and pelvis CT 04/25/2023. FINDINGS: Diffuse bladder wall thickening, unchanged. The prostate gland remains mildly enlarged. No pelvic lymphadenopathy. The small amount of pelvic free fluid. This has progressed in the interval. S uboptimal evaluation for bowel pathology due to the lack of intravenous and oral contrast. Multiple c olonic diverticula again noted. Thickening within the proximal to mid sigmoid colon with pericolonic fat stranding again noted. This is consistent with an acute diverticulitis. There has been been inter daivd of free air seen within the upper abdomen best seen on image 1. Mild diffuse thickening of the sm all bowel with mesenteric stranding consistent with an associated peritonitis. Progressive small amou nt of fluid within the paracolic gutters. Thickened loop of distal ileum superior to the suspected ac [place] diverticulitis with possible microperforation/fistulization within the small gas and fluid collec tion within the midabdomen. This is best seen on image 79. No drainable fluid collection at this time . IMPRESSION: 1. Redemonstration of the acute sigmoid diverticulitis. Progressive extraluminal gas which now demons trates free air consistent with a perforation. There is associated peritonitis with a small amount of ascites and thickening of the small bowel. Therefore, surgical consultation recommended. 2. The focus of gas and fluid within the central abdomen abuts the thickened distal ileum as describe d above. This raises the possibility of fistulization/microperforation of the adjacent distal ileum. 3. No drainable fluid collections at this time. 4. Persistent bladder wall thickening. 5. This report was called/faxed to the ordering physician following dictation. ACT 112: Negative or not required by law. Electronically signed by: Jay Harrison M.D. 04/29/2023 12:00 PM
--- NOTE | 2023-04-29 13:04 | Anesthesiology Consultation ---
Date of Service April 29, 2023 Assessment & Plan (1) Encounter for pre-operative examination: Chart Review Chart Review: Acceptable Risk for Surgery History Surgery Operation Date: 04/29/23 09:55 Proposed Procedures p Exploratory Laparotomy with Diverting Colostomy - Bernard Rocha DO Height/Weight Height: 5 ft 8 in Weight: 80 kg Allergies Allergy/AdvReac Type Severity Reaction Status Date / Time bee venom protein (honey bee) Allergy Severe PASSES OUT Verified 04/25/23 12:11 naproxen Allergy Intermediate SEVERE RASH Verified 04/25/23 12:11 tramadol AdvReac Intermediate GI SYMPTOMS Verified 04/25/23 12:11 Medications Home Medications Medication Instructions Recorded Confirmed Last Taken docusate sodium 100 mg capsule 100 mg PO BID PRN Constipation 07/02/19 04/25/23 01/11/20 blood sugar diagnostic (OneTouch #100 ea 02/15/21 03/06/23 Unknown Verio test strips) lancets 33 gauge (OneTouch Delica #100 ea 02/15/21 03/06/23 Unknown Lancets) epinephrine 0.3 mg/0.3 mL 0.3 mg IM DIRECTED PRN Allergic 02/21/22 04/25/23 Unknown injection, auto-injector (EpiPen) Reaction metformin 500 mg tablet,extended 1,000 mg PO DAILY #180 tabs 05/09/22 04/25/23 04/25/23 release 24hr duloxetine 60 mg capsule,delayed 60 mg PO QAM #90 caps 07/03/22 04/25/23 04/25/23 release furosemide 40 mg tablet 40 mg PO DAILY PRN Edema #90 tabs 07/06/22 04/25/23 Unknown fluticasone fur. 100 mcg-umeclid 1 inh inhalation DAILY #60 ea 09/26/22 04/25/23 04/25/23 62.5 mcg-vilant 25 mcg inhalat.powder (Trelegy Ellipta) ipratropium 0.5 mg-albuterol 3 mg 3 ml inhalation QID PRN Shortness 10/22/22 04/25/23 Unknown (2.5 mg base)/3 mL nebulization Of Breath #180 mL soln metoprolol tartrate 50 mg tablet 25 mg PO BID #180 tabs 10/31/22 04/25/23 04/25/23 dicyclomine 20 mg tablet 20 mg PO BID PRN abdominal 11/06/22 04/25/23 01/15/23 01:00 discomfort #20 tabs albuterol sulfate 90 mcg/actuation 2 puff inhalation Q4H PRN Wheezing 11/27/22 04/25/23 01/14/23 16:00 aerosol inhaler #8.5 grams gabapentin 300 mg capsule 900 mg PO TID #270 caps 12/13/22 04/25/23 04/25/23 tamsulosin 0.4 mg capsule 0.4 mg PO QAM 01/04/23 04/25/23 04/25/23 atorvastatin 80 mg tablet 80 mg PO HS #90 tabs 01/22/23 04/25/23 04/24/23 pantoprazole 40 mg tablet,delayed 40 mg PO BID #60 tabs 01/22/23 04/25/23 04/25/23 release (Protonix) famotidine 40 mg tablet 40 mg PO BID #60 tabs 03/07/23 04/25/23 04/25/23 oxycodone 15 mg tablet 15 mg PO Q6H #90 tabs 04/15/23 04/25/23 04/25/23 morphine 15 mg tablet,extended 15 mg PO Q12H #60 tabs 04/25/23 04/25/23 04/25/23 release Active Medications Generic Name Dose Route Start Last Admin Trade Name Dixon PRN Reason Stop Dose Admin Duloxetine HCl 60 mg 04/26/23 09:00 04/29/23 09:35 Duloxetine Hcl 60 Mg Cap PO 05/26/23 08:59 60 mg QAM ERIN Administration Enoxaparin Sodium 40 mg 04/25/23 21:00 04/28/23 19:53 Enoxaparin Inj 40 Mg/0.4 Ml Syr SQ 05/25/23 20:59 Not Given Q24H ERIN Fentanyl 25 mcg 04/26/23 08:00 04/29/23 09:20 Fentanyl 25 Mcg/Hr Tdsy TD 05/10/23 07:59 25 mcg Q3D ERIN Administration Fluticasone Furoate 1 puffs 04/26/23 09:00 04/29/23 09:37 Fluticasone Furoate 100mcg 14 Puffs/Inhaler INH 05/26/23 08:59 1 puffs DAILY ERIN Administration Gabapentin 900 mg 04/25/23 18:30 04/29/23 09:38 Gabapentin 300 Mg Cap PO 05/25/23 18:29 900 mg TID ERIN Administration Famotidine 20 mg/ Syringe 5 mls @ 2.5 mls/min 04/25/23 21:00 04/29/23 10:09 IV 05/25/23 20:59 2.5 mls/min BID ERIN Administration Piperacillin Sod/Tazobactam 120 mls @ 30 mls/hr 04/25/23 20:00 04/29/23 12:06 Sod 4.5 gm/ Dextrose IV 05/05/23 19:59 30 mls/hr Q8H ERIN Administration Protocol Sodium Chloride 1,000 mls @ 100 mls/hr 04/26/23 12:00 04/29/23 10:09 Nss 1000ml IV 05/26/23 11:59 100 mls/hr .Q10H ERIN Administration Insulin Aspart 0 units 04/28/23 07:30 04/29/23 12:05 Insulin Aspart Per Unit Charge SC 05/28/23 07:29 Not Given ACHS ERIN Metoprolol Tartrate 25 mg 04/25/23 21:00 04/29/23 09:50 Metoprolol Tartrate 25 Mg Tab PO 05/25/23 20:59 25 mg BID ERIN Administration Miscellaneous 1 each 04/26/23 08:59 04/29/23 09:11 Remove Nicoderm Patch N/A 05/26/23 08:58 Not Given DAILY@0859 [facility] Miscellaneous 1 each 04/26/23 08:00 04/29/23 09:08 Check Fentanyl Patch Placement N/A 05/26/23 07:59 1 each QS ERIN Administration Miscellaneous 1 each 04/26/23 08:00 04/29/23 09:05 Fentanyl Patch Remove & Waste N/A 05/26/23 07:59 1 each Q3D ERIN Administration Morphine Sulfate 4 mg 04/29/23 11:40 04/29/23 12:06 Morphine Sulfate 4 Mg/Ml 1 Ml Carp\\Vial IV 05/09/23 14:07 4 mg Q2H PRN Administration Pain(5+) Nicotine 21 mg 04/26/23 09:00 04/29/23 09:31 Nicotine 21 Mg/24 Hr Tdsy TD 05/26/23 08:59 Not Given QAM ERIN Pantoprazole Sodium 40 mg 04/27/23 09:00 04/29/23 09:39 Pantoprazole 40 Mg Tab PO 05/27/23 08:59 40 mg QAM ERIN Administration Tamsulosin HCl 0.4 mg 04/26/23 09:00 04/29/23 09:39 Tamsulosin Hcl 0.4 Mg Cap PO 05/26/23 08:59 0.4 mg QAM ERIN Administration Umeclidinium/Vilanterol 1 puffs 04/26/23 09:00 04/29/23 09:52 Umeclidinium/Vilanterol 62.5/25mcg 7 Puffs/Inhaler INH 05/26/23 08:59 1 puffs DAILY ERIN Administration Past Medical History Medical History Acid reflux Anaplasmosis Back pain Borderline diabetes CAD (coronary artery disease) Chronic bronchitis Chronic narcotic use Chronic obstructive pulmonary disease WEARS 2L HS (WILL WEAR DURING DAY PRN SOB) Chronic pain syndrome Chronic, continuous use of opioids Diabetes mellitus type 2, uncontrolled Diastolic CHF, acute on chronic Dyshidrotic eczema Excessive daytime sleepiness Folate deficiency Gait disturbance GERD (gastroesophageal reflux disease) H/O supraventricular tachycardia Hyperlipemia Hypertension Hypertension Insomnia Internal hemorrhoids Lumbar radiculopathy 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 NSTEMI (non-ST elevated myocardial infarction) "WAS GIVEN TOO MUCH EPINEPHRINE" On home oxygen therapy WEARS O2 2L AT HS + PRN DURING DAY SOB SAUL (obstructive sleep apnea) WEARS O2 2L AT HS Pancytopenia Polyneuropathy Seborrheic keratosis Secondary pulmonary hypertension Sensorineural hearing loss (SNHL) of both ears Stomach ulcer Syncope Thrombocytopenia Tobacco abuse Transaminitis Type II diabetes mellitus Urinary frequency AT HS (REASON FOR FLOMAX) Vitamin B12 deficiency Past Family History Family History Father Heart disease age 37 - "heart attack" Hypertension Brother Coronary heart disease Hypertension Aunt Breast cancer Mother Hypertension Thyroid disease Other Allergies Cancer Diabetes No family history of adverse response to anesthesia No significant family history Denies family history of Tuberculosis Ovarian cancer Prostate cancer Emphysema, unspecified Colorectal cancer Lung disease Asthma Past Surgical History Surgical History H/O cardiac catheterization NO STENTS>FOLLOWS WITH DR. SALDIVAR H/O vasectomy + REVERSAL History of cholecystectomy History of colonoscopy History of tooth extraction Hx of appendectomy Hx of arthroscopic knee surgery RT/LEFT S/P appy S/P cervical spinal fusion GOOD ROM S/P tonsillectomy and adenoidectomy Social History Smoking Status: Current every day smoker tobacco type: cigarettes Smoking cigarettes per day: 20 CIG DAILY>ADVISED Do You Dip or Chew Tobacco: No Hx Alcohol Use: Yes Alcohol type: beer and hard liquor alcohol intake frequency: a few times a month Hx Substance Use: No substance use type: does not use Physical Exam Vital Signs Last Vital Signs Temp 37 C 04/29/23 11:53 Pulse 81 04/29/23 11:53 Resp 18 04/29/23 11:53 BP 152/94 H 04/29/23 11:53 Pulse Ox 92 04/29/23 11:53 O2 Del Method Room Air 04/29/23 11:53 O2 Flow Rate 2 04/29/23 09:31 Testing Laboratory Results 04/29/23 05:46 04/29/23 05:46 Urine Color Yellow 04/25/23 13:44 Urine Appearance Clear (Clear) 04/25/23 13:44 Urine pH 5.0 (4.5-7.5) 04/25/23 13:44 Ur Specific Wilson > 1.045 (1.000-1.030) H 04/25/23 13:44 Urine Protein 1+ (Negative) H 04/25/23 13:44 Urine Glucose (UA) Negative (Negative) 04/25/23 13:44 Urine Ketones Negative (Negative) 04/25/23 13:44 Urine Nitrite Negative (Negative) 04/25/23 13:44 Ur Leukocyte Esterase Negative (Negative) 04/25/23 13:44 Urine WBC (Auto) 1-5 /hpf (0-5) 04/25/23 13:44 Urine RBC (Auto) 0-4 /hpf (0-4) 04/25/23 13:44 U Hyaline Cast (Auto) 10-30 /lpf (0-5) H 04/25/23 13:44 U Epithel Cells (Auto) 5-10 /lpf (0-5) H 04/25/23 13:44 Urine Bacteria (Auto) Negative (Negative) 04/25/23 13:44 04/25/23 13:44 Aerobic Blood Culture - Preliminary Blood Coag neg staph not lugdunensis Anaerobic Blood Culture - Preliminary No growth in Anaerobic bottle after 48 hours. 04/25/23 13:44 Aerobic Blood Culture - Preliminary Blood No growth in Aerobic bottle after 48 hours. Anaerobic Blood Culture - Preliminary No growth in Anaerobic bottle after 48 hours. 04/29/23 04/29/23 11:56 07:34 POC Glucose 121 H 102 H Electrocardiogram Date: 04/25/23 Findings: + NSR @ (94) Echocardiogram Date: 10/29/22 EF: 65-70% LV Function: normal Valvular Disease: + no significant valvular disease Cardiac Catheterization Date: 08/12/20 Findings: + normal
[2023-04-29] MEDS ORDERED: PROPOFOL IV EMULSION 10 MG/ML 20 ML VIAL IV ONE (13:12)
[2023-04-29] MEDS ORDERED: ONDANSETRON INJ 2 MG/ML 2 ML VIAL ONE (13:12)
[2023-04-29] MEDS ORDERED: ROCURONIUM BROMIDE 10 MG/ML 5 ML VIAL IV ONE ×3 (13:12→16:15)
[2023-04-29] MEDS ORDERED: fentaNYL citrate PF 100 MCG/2 ML VIAL ONE (13:13)
--- NOTE | 2023-04-29 13:14 | Communication Note ---
Date of Service: April 29, 2023 Patient feeling considerably worse after our rounds this AM after drinking some coffee. He now appears uncomfortable and is having chills. + abdominal pain. CT scan yesterday was only of the abdomen, therefore a pelvic CT was ordered by the hospitalists today for further evaluation. CT pelvis revealed: 1. Redemonstration of the acute sigmoid diverticulitis. Progressive extraluminal gas which now demonstrates free air consistent with a perforation. There is associated peritonitis with a small amount of ascites and thickening of the small bowel. Therefore, surgical consultation recommended. 2. The focus of gas and fluid within the central abdomen abuts the thickened distal ileum as described above. This raises the possibility of fistulization/mi croperforation of the adjacent distal ileum. Due to the above findings and patient's examination we will proceed to take the patient to the OR for an exploratory laparotomy with colostomy formation. Patient agreeable with the plan. Dr. Rocha to obtain consent.
--- NOTE | 2023-04-29 13:24 | History & Physical Bridge Note ---
Date of Service April 29, 2023 History & Physical Bridge Note I have examined the patient, reviewed the History & Physical and in the interval since the performance of the History & Physical I have noted the following changes of clinical significance: pt worse as morning progressed. ct of pelvis today now showing new/worsening pneumoperitoneum/progressing inflammation. discussed options/risks. rec urgent ex-lap with sigmoid colectomy and likely diverting colostomy. discussed risks including bleeding/infection/injury to other organs such as bladder/ureter/bowel etc...dvt/pe/mi/cva etc... questions answered. pt agreeable to proceed.
[2023-04-29] MEDS ORDERED: ATROPINE SULFATE 0.1 MG/ML 10ML SYR IV PRN (13:43)
[2023-04-29] MEDS ORDERED: PROMETHAZINE HCL 6.25 MG in SODIUM CHLORIDE 0.9% 50 ML IV PRN (13:43)
[2023-04-29] MEDS ORDERED: ONDANSETRON INJ 2 MG/ML 2 ML VIAL IV PRN (13:43)
[2023-04-29] MEDS ORDERED: KETAMINE 50 MG/5 ML SYRINGE ONE (14:16)
[2023-04-29] MEDS ORDERED: PHENYLEPHRINE 100MCG/ML 5ML SYR ONE (14:38)
[2023-04-29] MEDS ORDERED: ePHEDrine sulfate 50 MG/ML SYR ONE (14:38)
[2023-04-29] MEDS ORDERED: SUCCINYLCHOLINE CHLORIDE 20 MG/ML 10 ML VIAL IV ONE (14:51)
[2023-04-29] MEDS ORDERED: MIDAZOLAM HCL 1 MG/ML 2ML VIAL ONE (14:52)
[2023-04-29] MEDS ORDERED: ALBUMIN HUMAN 5% 12.5 GM/250 ML VIAL IV ONE (15:24)
[2023-04-29] MEDS ORDERED: SUGAMMADEX SODIUM 200 MG/2 ML VIAL IV ONE (15:45)
[2023-04-29] MEDS: HYDROmorphone INJ 1 MG/ML SYRINGE IV PRN ×8 (16:07→17:00)
--- NOTE | 2023-04-29 16:16 | Operative Report ---
PG Post Operative Report Pre & Post Diagnosis Operation Date: 04/29/23 09:55 Pre-Op Diagnosis: Perforated viscous Post-Op Diagnosis: Perforated diverticulitis;enterocolonic fistula I identified the patient and participated in the time-out.: Yes Procedure Operation Date: 04/29/23 09:55 Actual Procedures p Exploratory Laparotomy, Sigmoid colectomywith Diverting Colostomy, Takedown enterocolonic fistula with primary Repair(Not Applicable) - Bernard Rocha DO Surgeon Bernard Rocha DO Bank Boss Gabriella,BAYLEE Estimated Blood Loss 50 Findings Consistent with Post-Op Diagnosis Specimens sigmoid colon Description of Procedure After informed consent was obtained the patient was taken to the operating room and placed in supine position. After successful intubation a Unger catheter was placed sterilely as well as an NG tube by anesthesia. The abdomen was shaved and sterilely prepped and draped in usual fashion. I began with a midline incision from above his umbilicus down to the pubic symphysis. This was carried down through soft tissue using cautery. The anterior fascia was opened using cautery. Peritoneum was elevated with hemostats and incised under direct vision using Metzenbaum scissor. Was then completely opened to both poles using cautery. Once in the abdomen there was no foul odor and initially no purulence. There was a very large inflammatory mass in the lower mid abdomen. There was adherence of the distal small bowel to the inflammatory mass which had to be finger fractionation revealing a small enterocolonic fistula. Once I finger fractionate this a fair amount of purulent fluid was obtained. A specimen was taken and sent to the lab for Gram stain culture and sensitivity. There was no stool or fecal material but pure pus noted. This was immediately suctioned out. I was able to delineate some rectosigmoid that was noninflamed several centimeters distal to the perforated diverticulitis and transected this using 2 firings of a CYRIL purple cartridge linear stapler. We then found left colon several centimeters proximal to the perforation and again divided this this time using a black 60 stapler. 0 Prolene stitches were placed in the rectal stump 1 on either end of the staple line. A LigaSure device was used to take down the mesentery and the specimen passed off to be sent to the lab. Next I repaired the small bowel fistulous opening using 3-0 Monocryl for serosal/mucosal layers in simple interrupted fashion followed by 3-0 silk in Lembert fashion. We ran the small bowel and saw no other abnormalities. About 4-1/2 L of warm irrigation was used to thoroughly irrigate all 4 quadrants of the abdomen with focus on the left colon and pelvis. A 19 Tomás drain was brought in through a separate stab incision and placed into the pelvis. I freed up some of the remaining left colon using cautery by dividing the white line of Toldt to allow enough length to bring out a colostomy. Next a circular opening in the left lower quadrant was made and opened in cruciate fashion with cautery. Finger spread was performed and a Price clamp used to grasp the stapled end of the colon and deliver it. A final look around the abdomen showed no other abnormalities. The fascia was closed using 0- looped PDS in a running fashion. Soft tissue was irrigated and closed over quarter inch Norfolk drain with skin ruben. Silver dressing followed by gauze and tape were applied. I matured the stoma in Padmaja fashion using 3-0 Monocryl. A stoma device was placed. The patient was awakened extubated and transferred to recovery in stable condition. My nurse practitioner was present through the entire case and assisted in the colectomy stoma formation fistula repair wound closure and dressing placement. I attest to the content of the Intraoperative Record and any orders documented therein. Any exceptions are noted below.
--- NOTE | 2023-04-29 17:13 | Anesthesiology Progress Note ---
Date of Service April 29, 2023 Anesthesia Post Procedure Vital Signs Vital Signs: Temp Pulse Pulse Pulse Resp BP BP 04/29/23 17:05 36.5 C 86 23 106/72 04/29/23 16:55 82 22 107/65 04/29/23 16:45 81 21 105/64 04/29/23 16:35 84 22 114/71 04/29/23 16:25 80 23 117/75 04/29/23 16:15 77 22 116/72 04/29/23 16:06 36.1 C L 78 23 138/83 04/29/23 13:28 37.2 C 83 20 127/88 04/29/23 11:53 37 C 81 18 152/94 H 04/29/23 09:31 04/29/23 09:27 61 04/29/23 09:35 74 160/90 H 04/29/23 07:18 36.7 C 66 16 144/92 H 04/29/23 03:43 36.8 C 61 20 161/81 H 04/28/23 22:00 59 L 04/28/23 22:57 04/28/23 22:51 36.6 C 67 18 168/91 H 04/28/23 19:26 36.9 C 68 18 172/97 H Pulse Ox O2 Del Method O2 Flow Rate 04/29/23 17:05 96 Oxymask 3 04/29/23 16:55 97 Oxymask 3 04/29/23 16:45 95 Oxymask 3 04/29/23 16:35 95 Oxymask 4 04/29/23 16:25 96 Oxymask 4 04/29/23 16:15 95 Oxymask 4 04/29/23 16:06 91 Nasal Cannula 5 04/29/23 13:28 93 Room Air 04/29/23 11:53 92 Room Air 04/29/23 09:31 Room Air, Nasal Cannula 2 04/29/23 09:27 04/29/23 09:35 04/29/23 07:18 96 Room Air 04/29/23 03:43 95 Room Air 04/28/23 22:00 04/28/23 22:57 Room Air 04/28/23 22:51 93 Room Air 04/28/23 19:26 95 Room Air Pain Intensity Bilateral Abdomen: Pain Intensity: 6 Transfer of Care Handoff Completed per policy Notes Mental Status: alert / awake / arousable and participated in evaluation Patient Amnestic to Procedure: Yes Nausea / Vomiting: adequately controlled Pain: adequately controlled Airway Patency, RR, SpO2: stable & adequate BP & HR: stable & adequate Hydration State: stable & adequate Anesthetic Complications: no major complications apparent and Pt Satisfied with anesthetic care
[2023-04-29] MEDS ORDERED: MoRPHine SULFATE 2 MG/ML CARP IV PRN (17:55)
[2023-04-29] MEDS: LACTATED RINGER'S 1,000 ML IV SCH (18:07)
[2023-04-29] MEDS: ACETAMINOPHEN 1,000 MG/100 ML VIAL IV SCH (18:07)
[2023-04-29] MEDS: PANTOprazole 40 MG in SYRINGE 0 ML IV SCH (20:19)
[2023-04-30] MEDS: LACTATED RINGER'S 1,000 ML IV SCH ×3 (00:44→12:29)
[2023-04-30] MEDS: MoRPHine SULFATE 4 MG/ML 1 ML CARP\\VIAL IV PRN ×2 (00:54→06:52)
[2023-04-30] MEDS: ACETAMINOPHEN 1,000 MG/100 ML VIAL IV SCH ×3 (01:32→17:26)
[2023-04-30] MEDS ORDERED: HYDROmorphone INJ 0.5 MG/0.5 ML SYR IV STA ×2 (01:48→04:36)
[2023-04-30] MEDS ORDERED: NALOXONE HCL 0.4 MG/1 ML VIAL/CARP IV PRN ×2 (04:37→08:46)
[2023-04-30] MEDS: PIPERACILLIN/TAZOBACTAM 4.5 GM in DEXTROSE 5% 100 ML IV SCH ×3 (04:44→20:14)
[2023-04-30] MEDS: CHECK fentaNYL PATCH PLACEMENT SCH ×3 (07:44→16:41)
[2023-04-30] MEDS: NICOTINE 21 MG/24 HR TDSY TD SCH (07:44)
[2023-04-30] MEDS ORDERED: HYDROmorphone INJ 0.5 MG/0.5 ML SYR IV PRN (08:04)
[2023-04-30 08:06] LABS: Basophils # (auto) 0.04 K/uL (0-0.2); Basophils % (auto) 0.3 %; Eosinophils # (auto) 0.08 K/uL (0-0.50); Eosinophils % (auto) 0.5 %; Hematocrit (blood only) 35.8 % (42.0-52.0); Hemoglobin 12.3 g/dl (14.0-18.0); Immature Granulocytes # (auto) 0.35 K/uL (0.01-0.20); Immature Granulocytes % (auto) 2.3 %; Lymphocytes # (auto) 1.96 K/uL (1.2-3.4); Lymphocytes % (auto) 12.8 %; Mean Corpuscular Hemoglobin 31.8 pg (25.0-34.0); Mean Corpuscular Hgb Conc 34.4 g/dL (32.0-36.0); Mean Corpuscular Volume 92.5 fL (80.0-100.0); Mean Platelet Volume 9.6 fL (9.4-12.4); Monocytes # (auto) 1.07 K/uL (0.11-0.59); Neutrophils # (auto) 11.85 K/uL (1.40-6.50); Neutrophils % (auto) 77.1 %; Platelet Count 352 K/uL (130-400); RDW Coefficient of Variation 14.6 % (11.5-14.5); RDW Standard Deviation 49.6 fL (36.4-46.3); Red Blood Count 3.87 M/uL (4.70-6.10); White Blood Count 15.35 K/ul (4.8-10.8)
[2023-04-30 08:24] LABS: BUN Creatinine Ratio 6.6 (10-20); Calcium 8.5 mg/dl (8.6-10.3); Creatinine Clr Calc Pharmacy 101.3 ml/min; Est GFR (African American) 115.7 ml/min; Est GFR (Non-African American) 99.9 ml/min; Potassium 3.5 mmol/L (3.5-5.1)
[2023-04-30 08:46] LABS: Magnesium 1.7 mg/dl (1.7-2.4)
[2023-04-30] MEDS ORDERED: HYDROmorphone PCA 30 MG/30 ML IV PRN (08:46)
[2023-04-30] MEDS: PANTOprazole 40 MG in SYRINGE 0 ML IV SCH ×2 (08:48→20:04)
[2023-04-30] MEDS: FAMOTIDINE 20 MG in SYRINGE 3 ML IV SCH ×2 (08:48→20:14)
--- NOTE | 2023-04-30 08:51 | Surgery Progress Note ---
Date of Service April 30, 2023 Assessment & Plan (1) Sigmoid diverticulitis: Plan: POD#1 exlap, sigmoid colectomy with diverting colostomy, take down of enterocolonic fistula WBC 15, Hgb 12.3, Cr 0.7 NGT with minimal output, will remove. would keep npo with IVF Continue mirza catheter for now until more ambulatory Will start LEACHER for better pain control, continue IV APAP standing OOB as tolerates May resume lovenox As above. Doing as expected. NG tube not really functioning so we will remove it for comfort. Admission and Anticipated Discharge Date Admission Date: April 25, 2023 Subjective Patient seen. Reporting + pain, can't get it under a 5 in severity with current regimen. Physical Exam Physical Exam: awake, appears in pain Respiratory: on supplemental O2 Gastrointestinal (Abdomen): Inspection/Auscultation: + abdominal surgical incision Percussion/Palpation: + abdomen tender (daryl incisional discomfort noted ) TEMI serosang Results & Data Vital Signs (Past 12 Hours) Vital Signs Temp Pulse Pulse Pulse Resp BP Pulse Ox 04/30/23 07:30 36.6 C 96 H 20 161/98 H 93 04/30/23 07:12 94 H 04/30/23 03:50 36.7 C 88 18 154/89 H 96 04/29/23 22:12 88 04/29/23 23:07 36.9 C 85 16 125/80 95 04/29/23 22:12 O2 Del Method O2 Flow Rate 04/30/23 07:30 Nasal Cannula 2 04/30/23 07:12 04/30/23 03:50 Nasal Cannula 2 04/29/23 22:12 04/29/23 23:07 Nasal Cannula 2 04/29/23 22:12 Nasal Cannula 2 PG Care Time/CCT Total # of Minutes Spent Total Time Spent with Patient: Total time spent is greater than 50% in coordination of care (as documented) at patient's floor/unit and/or counseling patient: Coding Level of Care Code 90208 Post Operative Follow-Up Diagnoses Sigmoid diverticulitis K57.32
[2023-04-30] MEDS: UMECLIDINIUM/VILANTEROL 62.5/25MCG 7 PUFFS/INHALER INH SCH (09:02)
[2023-04-30] MEDS: METOPROLOL TARTRATE 25 MG TAB PO SCH ×2 (09:02→20:05)
[2023-04-30] MEDS: GABAPENTIN 300 MG CAP PO SCH ×3 (09:02→20:04)
[2023-04-30] MEDS: FLUTICASONE FUROATE 100MCG 14 PUFFS/INHALER INH SCH (09:03)
[2023-04-30] MEDS: DULoxetine HCL 60 MG CAP PO SCH (09:03)
[2023-04-30] MEDS: INSULIN ASPART PER UNIT CHARGE SC SCH ×4 (09:03→20:37)
[2023-04-30] MEDS: TAMSULOSIN HCL 0.4 MG CAP PO SCH (09:03)
[2023-04-30] MEDS: SODIUM CHLORIDE 0.9% 1000ML 1,000 ML IV SCH (09:52)
[2023-04-30] MEDS: ENOXAPARIN INJ 40 MG/0.4 ML SYR SQ SCH (09:52)
--- NOTE | 2023-04-30 19:26 | Hospitalist Progress Note ---
Date of Service April 30, 2023 Assessment & Plan (1) Diverticulitis of colon with perforation: Plan: presented with severe sigmoid diverticulitis with microperforation & small diverticular abscesses. unfortunately he worsened clinically on 04/29. repeat CT with macroperforation and worsening sigmoid diverticulitis. went to OR 04/29 --> s/p Exploratory Laparotomy, Sigmoid colectomy with Diverting Colostomy, Takedown entero-colonic fistula with primary Repair - Bernard Rocha, DO appreciate gen surg assistance remains on IV zosyn NG tube removed today HARVEST WORKER dilaudid for pain control LR hydration NPO status await return of bowel function (2) Peritonitis: Plan: 2nd to #1 with macroperforation. copious purulent material found during the ex lap. remains on IV zosyn. fortunately remains hemodynamically stable. (3) Hypertension: Plan: remains on metoprolol 25mg BID with stable BPs (4) COPD (chronic obstructive pulmonary disease): Plan: Stable. No exacerbation at this time. Pulmonary toilet. (5) DM II (diabetes mellitus, type II), controlled: Plan: BSGs controlled. Holding metformin. SSI novolog. (6) H/O supraventricular tachycardia: Plan: None seen on telemetry. Cont metoprolol BID. (7) Chronic pain syndrome: Plan: Fentanyl patch 25mcg q3d being used in place of morphine BID. Dilaudid IV HARVEST WORKER for breakthrough. Adjust as needed. chronic pain - l-spine, c-spine. (8) Tobacco abuse: Plan: Nicoderm patch 21mg/day. (9) SAUL (obstructive sleep apnea): Plan: no longer using CPAP at home. if any excess sedation low threshold to check VBG and r/o hypercapnea. (10) DVT prophylaxis: Plan: lovenox 40mg daily Plan will need PT/OT Admission and Anticipated Discharge Date Admission Date: April 25, 2023 Subjective had significant abdominal pain overnight and this am seen early in am by general surgery -- HARVEST WORKER dilaudid added by surgery since adding such his pain has been better controlled NG tube removed no nausea/emesis since denies dyspnea denies orthopnea patient reports he stopped using CPAP for his SAUL about 2 years ago tele overnight - wnl Review of Systems Review of Systems: gen - no fevers cv - no chest pain pulm - no cough; +snoring GI - ongoing incisional pain musculo - chronic neck/back pain; takes morphine BID and oxycodone QID Physical Exam Physical Exam: gen - snoring/asleep; awakens easily to name being called mouth - MM dry neck - no JVD heart - RRR, s1 s2 lungs - decreased BS bases, otherwise CTA b/l abd - distended, BS+ but decreased; incisional tenderness central abdomen; TEMI- drain in place, filled with slightly serosanguinous fluid; colostomy in place left side of abdomen, minimal serosanguinous fluid - no stool, no gas ext - no edema; pulses 1+ b/l; cool to touch psych - a/o x 3 Results & Data Results & Data Vital Signs (Past 12 Hours) Vital Signs Temp Pulse Pulse Resp BP BP Pulse Ox 04/30/23 17:21 87 04/30/23 14:51 36.4 C L 85 16 123/79 04/30/23 14:04 04/30/23 11:21 36.9 C 91 H 16 136/81 93 04/30/23 07:30 36.6 C 96 H 20 161/98 H 93 O2 Del Method O2 Flow Rate 04/30/23 17:21 04/30/23 14:51 04/30/23 14:04 Nasal Cannula 2 04/30/23 11:21 Nasal Cannula 2 04/30/23 07:30 Nasal Cannula 2 Laboratory Results Laboratory Results - last 24 hr 04/30/23 04/30/23 04/30/23 07:26 07:26 09:03 WBC 15.35 H RBC 3.87 L Hgb 12.3 L Hct 35.8 L MCV 92.5 MCH 31.8 MCHC 34.4 RDW Std Deviation 49.6 H RDW Coeff of Liliya 14.6 H Plt Count 352 MPV 9.6 Immature Gran % (Auto) 2.3 Neut % (Auto) 77.1 Lymph % (Auto) 12.8 Jasper % (Auto) 7.0 Eos % (Auto) 0.5 Baso % (Auto) 0.3 Neut # (Auto) 11.85 H Lymph # (Auto) 1.96 Jasper # (Auto) 1.07 H Eos # (Auto) 0.08 Baso # (Auto) 0.04 Immature Gran # (Auto) 0.35 H Sodium 139 Potassium 3.5 Chloride 106 Carbon Dioxide 26 Anion Gap 7 BUN 5 L Creatinine 0.76 Est Cr Clr Drug Dosing 101.3 Est GFR ( Amer) 115.7 Est GFR (Non-Af Amer) 99.9 BUN/Creatinine Ratio 6.6 L Glucose 123 H POC Glucose 117 H Calcium 8.5 L Magnesium 1.7 04/30/23 04/30/23 04/30/23 12:22 16:54 20:28 WBC RBC Hgb Hct MCV MCH MCHC RDW Std Deviation RDW Coeff of Liliya Plt Count MPV Immature Gran % (Auto) Neut % (Auto) Lymph % (Auto) Jasper % (Auto) Eos % (Auto) Baso % (Auto) Neut # (Auto) Lymph # (Auto) Jasper # (Auto) Eos # (Auto) Baso # (Auto) Immature Gran # (Auto) Sodium Potassium Chloride Carbon Dioxide Anion Gap BUN Creatinine Est Cr Clr Drug Dosing Est GFR ( Amer) Est GFR (Non-Af Amer) BUN/Creatinine Ratio Glucose POC Glucose 126 H 112 H 118 H Calcium Magnesium PG Care Time/CCT Total # of Minutes Spent Total Time Spent with Patient: Total time spent is greater than 50% in coordination of care (as documented) at patient's floor/unit and/or counseling patient: Coding Level of Care Code 05165 SUB INP/OBS CARE MIN Diagnoses Diverticulitis of colon with perforation K57.20 Peritonitis K65.9 Hypertension I10 COPD (chronic obstructive pulmonary disease) J44.9 DM II (diabetes mellitus, type II), controlled E11.9 H/O supraventricular tachycardia Z86.79 Chronic pain syndrome G89.4 Tobacco abuse Z72.0 SAUL (obstructive sleep apnea) G47.33 DVT prophylaxis Z29.9
[2023-05-01] MEDS: LACTATED RINGER'S 1,000 ML IV SCH ×5 (00:25→23:41)
[2023-05-01] MEDS: CHECK fentaNYL PATCH PLACEMENT SCH ×4 (00:31→23:57)
[2023-05-01] MEDS: ACETAMINOPHEN 1,000 MG/100 ML VIAL IV SCH ×3 (01:19→17:04)
[2023-05-01] MEDS: PIPERACILLIN/TAZOBACTAM 4.5 GM in DEXTROSE 5% 100 ML IV SCH ×3 (04:26→20:50)
[2023-05-01 07:42] LABS: BUN Creatinine Ratio 7.4 (10-20); Calcium 8.6 mg/dl (8.6-10.3); Creatinine Clr Calc Pharmacy 113.2 ml/min; Est GFR (African American) 121.2 ml/min; Est GFR (Non-African American) 104.5 ml/min; Potassium 3.7 mmol/L (3.5-5.1)
[2023-05-01 07:49] LABS: Basophils # (auto) 0.06 K/uL (0-0.2); Basophils % (auto) 0.4 %; Eosinophils # (auto) 0.37 K/uL (0-0.50); Eosinophils % (auto) 2.4 %; Hematocrit (blood only) 35.1 % (42.0-52.0); Hemoglobin 11.5 g/dl (14.0-18.0); Immature Granulocytes % (auto) 1.9 %; Lymphocytes # (auto) 2.08 K/uL (1.2-3.4); Lymphocytes % (auto) 13.5 %; Mean Corpuscular Hemoglobin 31.4 pg (25.0-34.0); Mean Corpuscular Hgb Conc 32.8 g/dL (32.0-36.0); Mean Corpuscular Volume 95.9 fL (80.0-100.0); Mean Platelet Volume 9.6 fL (9.4-12.4); Monocytes % (auto) 6.5 %; Neutrophils # (auto) 11.61 K/uL (1.40-6.50); Neutrophils % (auto) 75.3 %; Platelet Count 392 K/uL (130-400); RDW Coefficient of Variation 14.2 % (11.5-14.5); RDW Standard Deviation 50.4 fL (36.4-46.3); Red Blood Count 3.66 M/uL (4.70-6.10); White Blood Count 15.42 K/ul (4.8-10.8)
[2023-05-01] MEDS: NICOTINE 21 MG/24 HR TDSY TD SCH (08:16)
[2023-05-01] MEDS: INSULIN ASPART PER UNIT CHARGE SC SCH ×4 (08:27→23:48)
--- NOTE | 2023-05-01 08:34 | Surgery Progress Note ---
Date of Service May 01, 2023 Assessment & Plan (1) History of colon resection: Plan: Postoperative day #2 Clinically improving We will remove his Unger Out of bed to chair/ambulate with assist today No bowel function yet stay on ice chips and sips only for now We will probably try and DC his SCRUB TECH pump tomorrow Admission and Anticipated Discharge Date Admission Date: April 25, 2023 Subjective Patient seen. Doing much better than yesterday. No nausea or vomiting and pain improved Physical Exam Physical Exam: Alert. No acute distress Abdomen is soft with expected tenderness The incision looks great. TEMI with daniel serous output Results & Data Vital Signs (Past 12 Hours) Vital Signs Temp Pulse Pulse Resp BP Pulse Ox O2 Del Method 05/01/23 03:36 36.5 C 80 16 122/68 95 Nasal Cannula 04/30/23 22:00 80 04/30/23 23:10 36.6 C 83 16 120/74 94 Nasal Cannula 04/30/23 22:15 Nasal Cannula O2 Flow Rate 05/01/23 03:36 3 04/30/23 22:00 04/30/23 23:10 3 04/30/23 22:15 2 PG Care Time/CCT Total # of Minutes Spent Total Time Spent with Patient: Total time spent is greater than 50% in coordination of care (as documented) at patient's floor/unit and/or counseling patient: Coding Level of Care Code 43021 Post Operative Follow-Up Diagnoses History of colon resection Z90.49
[2023-05-01] MEDS: DULoxetine HCL 60 MG CAP PO SCH (08:56)
[2023-05-01] MEDS: TAMSULOSIN HCL 0.4 MG CAP PO SCH (08:56)
[2023-05-01] MEDS: METOPROLOL TARTRATE 25 MG TAB PO SCH ×2 (09:09→20:36)
[2023-05-01] MEDS: ENOXAPARIN INJ 40 MG/0.4 ML SYR SQ SCH (09:13)
[2023-05-01] MEDS: FLUTICASONE FUROATE 100MCG 14 PUFFS/INHALER INH SCH (09:13)
[2023-05-01] MEDS: GABAPENTIN 300 MG CAP PO SCH ×3 (09:18→20:35)
[2023-05-01] MEDS: UMECLIDINIUM/VILANTEROL 62.5/25MCG 7 PUFFS/INHALER INH SCH (09:29)
[2023-05-01] MEDS ORDERED: hydrALAZINE HCL 20 MG/ML VIAL IV PRN (09:45)
--- NOTE | 2023-05-01 09:49 | Hospitalist Progress Note ---
Date of Service May 01, 2023 Assessment & Plan (1) Diverticulitis of colon with perforation: Plan: presented with severe sigmoid diverticulitis with microperforation & small diverticular abscesses. concern for peritonitis OR 04/29 --> s/p Exploratory Laparotomy, copious purulnet material commendted, Sigmoid colectomy with Diverting Colostomy, Takedown entero-colonic fistula with primary Repair - Bernard Rocha, DO IV zosyn NG tube removed 04/30/23 PULMONARY DISEASE SPECIALIST dilaudid for pain control, fair pain control (2) Hypertension: Plan: chronic and uncontrolled metoprolol 25mg BID , added hydralazine prn (3) COPD (chronic obstructive pulmonary disease): Plan: chronic and Stable. No exacerbation at this time. Pulmonary toilet. (4) DM II (diabetes mellitus, type II), controlled: Plan: BSGs controlled. Holding metformin. SSI novolog. (5) Chronic pain syndrome: Plan: Fentanyl patch 25mcg q3d being used in place of morphine BID. Dilaudid IV PULMONARY DISEASE SPECIALIST for breakthrough. Adjust as needed. chronic pain - l-spine, c-spine. (6) Tobacco abuse: Plan: Nicoderm patch 21mg/day. (7) SAUL (obstructive sleep apnea): Plan: no longer using CPAP at home. (8) DVT prophylaxis: Plan: lovenox 40mg daily Admission and Anticipated Discharge Date Admission Date: April 25, 2023 Subjective pt is with improving pain, still no ostomy output, overall pain control is fair. Physical Exam Physical Exam: abdomen still some bowel sounds, soft and not typically significantly tender Results & Data Results & Data Vital Signs (Past 12 Hours) Vital Signs Temp Pulse Pulse Resp BP BP Pulse Ox 05/01/23 08:00 87 05/01/23 09:06 98.4 F 95 H 19 171/99 H 92 05/01/23 03:36 97.7 F 80 16 122/68 95 04/30/23 22:00 80 04/30/23 23:10 97.9 F 83 16 120/74 94 04/30/23 22:15 O2 Del Method O2 Flow Rate 05/01/23 08:00 05/01/23 09:06 Nasal Cannula 05/01/23 03:36 Nasal Cannula 3 04/30/23 22:00 04/30/23 23:10 Nasal Cannula 3 04/30/23 22:15 Nasal Cannula 2 Laboratory Results review cbc, review prp PG Care Time/CCT Total # of Minutes Spent Total Time Spent with Patient: Total time spent is greater than 50% in coordination of care (as documented) at patient's floor/unit and/or counseling patient: Coding Level of Care Code 34699 SUB INP/OBS CARE 235MIN Diagnoses Diverticulitis of colon with perforation K57.20 Hypertension I10 COPD (chronic obstructive pulmonary disease) J44.9 DM II (diabetes mellitus, type II), controlled E11.9 Chronic pain syndrome G89.4 Tobacco abuse Z72.0 SAUL (obstructive sleep apnea) G47.33 DVT prophylaxis Z29.9
[2023-05-01] MEDS: FAMOTIDINE 20 MG in SYRINGE 3 ML IV SCH ×2 (09:50→20:34)
[2023-05-01] MEDS: PANTOprazole 40 MG in SYRINGE 0 ML IV SCH ×2 (09:50→20:34)
[2023-05-01] MEDS: SODIUM CHLORIDE 0.9% 1000ML 1,000 ML IV SCH (11:55)
[2023-05-02] MEDS: ACETAMINOPHEN 1,000 MG/100 ML VIAL IV SCH ×2 (01:05→10:37)
[2023-05-02] MEDS: PIPERACILLIN/TAZOBACTAM 4.5 GM in DEXTROSE 5% 100 ML IV SCH ×3 (03:27→20:11)
[2023-05-02] MEDS: LACTATED RINGER'S 1,000 ML IV SCH ×3 (06:04→21:10)
[2023-05-02] MEDS: INSULIN ASPART PER UNIT CHARGE SC SCH ×4 (06:29→21:38)
--- NOTE | 2023-05-02 07:50 | Hospitalist Progress Note ---
Date of Service May 02, 2023 Assessment & Plan (1) Diverticulitis of colon with perforation: Plan: presented with severe sigmoid diverticulitis with microperforation & small diverticular abscesses. concern for peritonitis OR 04/29 --> s/p Exploratory Laparotomy, copious purulent peritoneal fluid , Sigmoid colectomy with Diverting Colostomy, Takedown entero-colonic fistula with primary Repair - Bernard Rocha, DO IV zosyn NG tube removed 04/30/23 surgery allowed liquid diet BUILDING REPAIR MAINTENANCE SUPERVISOR discontinued we will try Nucynta in place of oxycodone to try to reduce any B GI effects. We will have backup Dilaudid parenteral if needed for pain control (2) Hypertension: Plan: chronic and uncontrolled metoprolol 25mg BID , added hydralazine prn (3) COPD (chronic obstructive pulmonary disease): Plan: chronic and Stable. No exacerbation at this time. Pulmonary toilet. (4) DM II (diabetes mellitus, type II), controlled: Plan: BSGs controlled. Holding metformin. SSI novolog. (5) Chronic pain syndrome: Plan: Fentanyl patch 25mcg q3d being used in place of morphine BID. try Nucynta with breakthrough Dilaudid for pain control chronic pain - l-spine, c-spine. (6) Tobacco abuse: Plan: Nicoderm patch 21mg/day. (7) SAUL (obstructive sleep apnea): Plan: no longer using CPAP at home. (8) DVT prophylaxis: Plan: lovenox 40mg daily Admission and Anticipated Discharge Date Admission Date: April 25, 2023 Subjective Surgery has advance diet still no significant ostomy output tolerable mild abdominal pain Physical Exam Physical Exam: awake alert appropriate transitioning from BUILDING REPAIR MAINTENANCE SUPERVISOR cardiac exam is regular lungs are clear abdomen with hypoactive bowel sounds ostomy left lower quadrant only scant fluid in bag Results & Data Results & Data Vital Signs (Past 12 Hours) Vital Signs Temp Pulse Pulse Resp BP Pulse Ox O2 Del Method 05/02/23 07:43 97.9 F 93 H 18 171/90 H 92 Nasal Cannula 05/02/23 03:59 98.1 F 83 18 131/81 95 Nasal Cannula 05/01/23 22:00 97 H 05/01/23 23:22 98.2 F 97 H 18 134/86 94 Nasal Cannula 05/01/23 19:51 Nasal Cannula O2 Flow Rate 05/02/23 07:43 3 07/20/23 03:59 2 05/01/23 22:00 05/01/23 23:22 2 05/01/23 19:51 2 Laboratory Results reviewed CBC reviewed chemistry PG Care Time/CCT Total # of Minutes Spent Total Time Spent with Patient: Total time spent is greater than 50% in coordination of care (as documented) at patient's floor/unit and/or counseling patient: Coding Level of Care Code 87494 SUB INP/OBS CARE 35MIN Diagnoses Diverticulitis of colon with perforation K57.20 Hypertension I10 COPD (chronic obstructive pulmonary disease) J44.9 DM II (diabetes mellitus, type II), controlled E11.9 Chronic pain syndrome G89.4 Tobacco abuse Z72.0 SAUL (obstructive sleep apnea) G47.33 DVT prophylaxis Z29.9
[2023-05-02] MEDS: NICOTINE 21 MG/24 HR TDSY TD SCH (08:07)
[2023-05-02] MEDS: METOPROLOL TARTRATE 25 MG TAB PO SCH ×2 (08:11→20:07)
[2023-05-02] MEDS: TAMSULOSIN HCL 0.4 MG CAP PO SCH (08:13)
[2023-05-02] MEDS: GABAPENTIN 300 MG CAP PO SCH ×3 (08:13→20:07)
[2023-05-02] MEDS: ENOXAPARIN INJ 40 MG/0.4 ML SYR SQ SCH (08:14)
[2023-05-02] MEDS: DULoxetine HCL 60 MG CAP PO SCH (08:15)
[2023-05-02] MEDS: FLUTICASONE FUROATE 100MCG 14 PUFFS/INHALER INH SCH (08:15)
[2023-05-02] MEDS: UMECLIDINIUM/VILANTEROL 62.5/25MCG 7 PUFFS/INHALER INH SCH (08:16)
[2023-05-02] MEDS: fentaNYL 25 MCG/HR TDSY TD SCH (08:17)
[2023-05-02] MEDS: CHECK fentaNYL PATCH PLACEMENT SCH ×3 (08:18→23:29)
[2023-05-02] MEDS: SODIUM CHLORIDE 0.9% 1000ML 1,000 ML IV SCH (08:21)
[2023-05-02 08:29] LABS: Hematocrit (blood only) 34.6 % (42.0-52.0); Hemoglobin 11.7 g/dl (14.0-18.0); Mean Corpuscular Hemoglobin 31.9 pg (25.0-34.0); Mean Corpuscular Hgb Conc 33.8 g/dL (32.0-36.0); Mean Corpuscular Volume 94.3 fL (80.0-100.0); Mean Platelet Volume 9.4 fL (9.4-12.4); Platelet Count 464 K/uL (130-400); RDW Coefficient of Variation 14.2 % (11.5-14.5); RDW Standard Deviation 49.2 fL (36.4-46.3); Red Blood Count 3.67 M/uL (4.70-6.10); White Blood Count 12.02 K/ul (4.8-10.8)
[2023-05-02] MEDS: FAMOTIDINE 20 MG in SYRINGE 3 ML IV SCH ×2 (08:31→20:11)
[2023-05-02] MEDS: PANTOprazole 40 MG in SYRINGE 0 ML IV SCH ×2 (08:36→20:07)
[2023-05-02 08:43] LABS: BUN Creatinine Ratio 11.3 (10-20); Calcium 8.3 mg/dl (8.6-10.3); Creatinine Clr Calc Pharmacy 145.2 ml/min; Est GFR (African American) 134.2 ml/min; Est GFR (Non-African American) 115.8 ml/min; Magnesium 1.7 mg/dl (1.7-2.4); Potassium 3.5 mmol/L (3.5-5.1)
--- NOTE | 2023-05-02 12:23 | Surgery Progress Note ---
Date of Service May 02, 2023 Assessment & Plan (1) History of colon resection: Plan: Postoperative day 3 Awaiting return of bowel function Will initiate clear liquid diet DC PROGRAM DEVELOPER Can probably cut back on his fluid Increase ambulation Admission and Anticipated Discharge Date Admission Date: April 25, 2023 Subjective Patient seen. Feeling okay. Some abdominal cramping but overall doing okay. No nausea. He does feel hungry Physical Exam Physical Exam: Alert. No acute distress Abdomen is soft. Incision looks great. TEMI with daniel serous fluid. Stoma viable but no output yet Results & Data Vital Signs (Past 12 Hours) Vital Signs Temp Pulse Resp BP Pulse Ox O2 Del Method O2 Flow Rate 05/02/23 11:08 36.6 C 79 18 160/87 H 94 Nasal Cannula 3 05/02/23 07:43 36.6 C 93 H 18 171/90 H 92 Nasal Cannula 3 05/02/23 03:59 36.7 C 83 18 131/81 95 Nasal Cannula 2 PG Care Time/CCT Total # of Minutes Spent Total Time Spent with Patient: Total time spent is greater than 50% in coordination of care (as documented) at patient's floor/unit and/or counseling patient: Coding Level of Care Code 44908 Post Operative Follow-Up Diagnoses History of colon resection Z90.49
[2023-05-02] MEDS ORDERED: oxyCODONE HCL IR 5 MG TAB (IMMEDIATE RELEASE) PO PRN (12:24)
[2023-05-02] MEDS: TAPENTADOL HCL 50 MG TAB PO PRN ×2 (14:46→21:11)
[2023-05-02] MEDS: HYDROmorphone INJ 0.5 MG/0.5 ML SYR IV PRN (17:02)
[2023-05-03] MEDS: HYDROmorphone INJ 0.5 MG/0.5 ML SYR IV PRN ×4 (00:17→18:52)
[2023-05-03] MEDS: PIPERACILLIN/TAZOBACTAM 4.5 GM in DEXTROSE 5% 100 ML IV SCH ×3 (03:47→21:08)
[2023-05-03] MEDS: LACTATED RINGER'S 1,000 ML IV SCH ×2 (03:47→09:33)
[2023-05-03] MEDS: TAPENTADOL HCL 50 MG TAB PO PRN ×2 (03:54→17:05)
[2023-05-03 06:56] LABS: Hematocrit (blood only) 32.6 % (42.0-52.0); Hemoglobin 11.2 g/dl (14.0-18.0); Mean Corpuscular Hemoglobin 31.7 pg (25.0-34.0); Mean Corpuscular Hgb Conc 34.4 g/dL (32.0-36.0); Mean Corpuscular Volume 92.4 fL (80.0-100.0); Mean Platelet Volume 9.6 fL (9.4-12.4); Platelet Count 506 K/uL (130-400); RDW Coefficient of Variation 14.3 % (11.5-14.5); RDW Standard Deviation 48.2 fL (36.4-46.3); Red Blood Count 3.53 M/uL (4.70-6.10); White Blood Count 11.87 K/ul (4.8-10.8)
--- NOTE | 2023-05-03 07:02 | Hospitalist Progress Note ---
Date of Service May 03, 2023 Assessment & Plan (1) Diverticulitis of colon with perforation: Plan: presented with severe sigmoid diverticulitis with microperforation, peritoneal soiling & small diverticular abscesses. OR 04/29 --> s/p Exploratory Laparotomy, copious purulent peritoneal fluid , Sigmoid colectomy with Diverting Colostomy, Takedown entero-colonic fistula with primary Repair - Bernard Rocha, DO Cultures concerning for gram-positive cocci and fungus [place] , infectious disease consult Recommendations: -Started caspofungin 70 mg x 1 today, then 50 mg daily to cover [place] albicans/dubliniensis -Continue pip-tazo -Follow-up abd fluid cx for identification of GPC (if VRE, may need to add daptomycin) NG tube removed 04/30/23 surgery allowing advancing diet PLANT AND MACHINERY VALUER discontinued 05/[address] in [address] of oxycodone to try to reduce any B GI effects. Good pain control so far we will have backup Dilaudid parenteral if needed for pain control (2) Hypertension: Plan: chronic and uncontrolled metoprolol 25mg BID , added hydralazine prn (3) COPD (chronic obstructive pulmonary disease): Plan: chronic and Stable. No exacerbation at this time. Pulmonary toilet. (4) DM II (diabetes mellitus, type II), controlled: Plan: BSGs controlled. Holding metformin. SSI novolog. (5) Chronic pain syndrome: Plan: Fentanyl patch 25mcg q3d being used in place of morphine BID. try Nucynta with breakthrough Dilaudid for pain control chronic pain - l-spine, c-spine. (6) Tobacco abuse: Plan: Nicoderm patch 21mg/day. (7) SAUL (obstructive sleep apnea): Plan: no longer using CPAP at home. (8) DVT prophylaxis: Plan: lovenox 40mg daily Admission and Anticipated Discharge Date Admission Date: April 25, 2023 Subjective pt is eating food, still getting full quickly, scant ostomy output, no abdominal pain Physical Exam Physical Exam: awake alert appropriate transitioning from PLANT AND MACHINERY VALUER cardiac exam is regular lungs are clear abdomen with hypoactive bowel sounds ostomy left lower quadrant only scant fluid in bag Results & Data Results & Data Vital Signs (Past 12 Hours) Vital Signs Temp Pulse Pulse Resp BP Pulse Ox O2 Del Method 05/03/23 04:00 98.1 F 78 18 143/81 H 95 Nasal Cannula 05/02/23 21:59 76 05/02/23 23:44 97.7 F 80 18 145/84 H 95 Nasal Cannula 05/02/23 19:31 Nasal Cannula O2 Flow Rate 05/03/23 04:00 2 05/02/23 21:59 05/02/23 23:44 2 05/02/23 19:31 2 Laboratory Results Reviewed CBC Reviewed chemistry PG Care Time/CCT Total # of Minutes Spent Total Time Spent with Patient: Total time spent is greater than 50% in coordination of care (as documented) at patient's floor/unit and/or counseling patient: Coding Level of Care Code 77728 SUB INP/OBS CARE MIN Diagnoses Diverticulitis of colon with perforation K57.20 Hypertension I10 COPD (chronic obstructive pulmonary disease) J44.9 DM II (diabetes mellitus, type II), controlled E11.9 Chronic pain syndrome G89.4 Tobacco abuse Z72.0 SAUL (obstructive sleep apnea) G47.33 DVT prophylaxis Z29.9
[2023-05-03 07:14] LABS: BUN Creatinine Ratio 7.4 (10-20); Calcium 8.3 mg/dl (8.6-10.3); Creatinine Clr Calc Pharmacy 142.5 ml/min; Est GFR (African American) 133.2 ml/min; Est GFR (Non-African American) 114.9 ml/min
--- NOTE | 2023-05-03 09:04 | Surgery Progress Note ---
Date of Service May 03, 2023 Assessment & Plan (1) History of colon resection: Plan: Continues to improve Return of bowel function we will advance his diet We will DC his TEMI drain since its not functioning Continue physical therapy and increase activity each day Continue IV antibiotics for now We will helpwell his IV since he is tolerating diet/liquid Admission and Anticipated Discharge Date Admission Date: April 25, 2023 Subjective Patient seen. Feeling well. Tolerated clear liquids yesterday. Has had a large amount of output from his colostomy. He has no nausea and is quite hungry Physical Exam Physical Exam: Abdomen soft nontender Incision looks good Stoma is functioning and looks good TEMI drain with small amount of serous output but no longer holding suction Results & Data Vital Signs (Past 12 Hours) Vital Signs Temp Pulse Pulse Resp BP Pulse Ox O2 Del Method 05/03/23 07:55 88 05/03/23 07:41 36.5 C 88 16 176/96 H 92 Nasal Cannula 05/03/23 04:00 36.7 C 78 18 143/81 H 95 Nasal Cannula 05/02/23 21:59 76 05/02/23 23:44 36.5 C 80 18 145/84 H 95 Nasal Cannula O2 Flow Rate 05/03/23 07:55 05/03/23 07:41 3 05/03/23 04:00 2 05/02/23 21:59 05/02/23 23:44 2 PG Care Time/CCT Total # of Minutes Spent Total Time Spent with Patient: Total time spent is greater than 50% in coordination of care (as documented) at patient's floor/unit and/or counseling patient: Coding Level of Care Code 63649 Post Operative Follow-Up Diagnoses History of colon resection Z90.49
[2023-05-03] MEDS: GABAPENTIN 300 MG CAP PO SCH ×3 (09:08→21:09)
[2023-05-03] MEDS: TAMSULOSIN HCL 0.4 MG CAP PO SCH (09:08)
[2023-05-03] MEDS: PANTOprazole 40 MG in SYRINGE 0 ML IV SCH ×2 (09:08→21:09)
[2023-05-03] MEDS: DULoxetine HCL 60 MG CAP PO SCH (09:09)
[2023-05-03] MEDS: UMECLIDINIUM/VILANTEROL 62.5/25MCG 7 PUFFS/INHALER INH SCH (09:09)
[2023-05-03] MEDS: NICOTINE 21 MG/24 HR TDSY TD SCH (09:10)
[2023-05-03] MEDS: SODIUM CHLORIDE 0.9% 1000ML 1,000 ML IV SCH (09:10)
[2023-05-03] MEDS: METOPROLOL TARTRATE 25 MG TAB PO SCH ×2 (09:11→21:09)
[2023-05-03] MEDS: FAMOTIDINE 20 MG in SYRINGE 3 ML IV SCH ×2 (09:13→21:08)
[2023-05-03] MEDS: ENOXAPARIN INJ 40 MG/0.4 ML SYR SQ SCH (09:13)
[2023-05-03] MEDS: FLUTICASONE FUROATE 100MCG 14 PUFFS/INHALER INH SCH (09:14)
[2023-05-03] MEDS: CHECK fentaNYL PATCH PLACEMENT SCH ×2 (09:15→16:05)
[2023-05-03] MEDS: INSULIN ASPART PER UNIT CHARGE SC SCH ×4 (09:18→21:07)
--- NOTE | 2023-05-03 11:09 | Infectious Disease Consult ---
Date of Consultation May 03, 2023 Assessment & Plan (1) Diverticulitis of colon with perforation: (2) Peritonitis: Plan Micro: 04/29 Abd fluid: GPCs, [place] alb/dub 04/25 BCx x2: coag neg Staph in / bottles Abx: Pip-tazo 04/25 - present Caspofungin 05/03 - present Problems: #Secondary peritonitis #Perforated acute sigmoid diverticulitis 57 yo M with history of CAD, DM, HTN, HLD, HFpEF, COPD, chronic hypoxia on intermittent 2 L O2 as needed, pulmonary hypertension, tobacco use, SAUL, chronic pain syndrome who presented on 04/25 with abd pain, found to have perforated sigmoid diverticulitis, peritonitis, s/p ex-lap and sigmoid colectomy with diverting colostomy on 04/29. On presentation, pt was tachycardic, WBC 16. CT A/P with contrast showed acute sigmoid diverticulitis with associated microperforation and a few small developing pericolonic abscesses measuring up to 17 mm, not amenable to percutaneous drainage. Gen surg was consulted, and initially had no plans for immediate surgical intervention. He was started on pip-tazo. WBC downtrended and diet slowly advanced to clear liquids. However, on 04/29, pt felt worse, with increased abd pain, chills. CT pelvis showed progressive extraluminal gas consistent with perforation, associated peritonitis with small amount of ascites. Pt was taken to the OR on 04/29 for ex-lap, sigmoid colectomy with diverting colostomy, takedown enterocolonic fistula. Per operative note, a very large inflammatory mass was seen in the lower abdomen, with a fair amount of purulent fluid within. Culture of abdominal fluid is growing GPCs and [place] alb/dub. Post-operatively, leukocytosis is downtrending. Pt is progressing and started liquid diet on 05/02. Recommendations: -Started caspofungin 70 mg x 1 today, then 50 mg daily to cover [place] albicans/dubliniensis -Continue pip-tazo -Follow-up abd fluid cx for identification of GPC (if VRE, may need to add daptomycin) Will continue to follow. Please note that there will be no ID notes over the weekend. If time-sensitive questions or concerns arise, please contact the Infectious Disease Call Center and ask to speak with the covering ID physician. Consultation Information Consultation was provided via telemedicine using two-way real-time interactive telecommunication between the patient and the telemedicine provider. For the duration of the visit, the provider was performing the assessment from a differe nt facility than the patient. This includesuse of bluetooth stethoscope forauscultationperformed by the telepresenter that the telemedicine provider can hear if described in the physical exam. Coverstitch Elastic Attacher contact information: Please call [facility] . (Phone Number For Physician Use Only) After establishing a telemedicine visit, patient was: Patient was verified with two unique identifiers, Patient/authorized rep acknowledged consent and understanding and Gave permission to continue telehealth session Time Spent with Patient: Initial => 40 min History of Present Illness Reason for Consultation: Fungal peritonitis Requesting Physician: Dr. Gottlieb Attending Physician: Martin Gottlieb MD History of Present Illness 57 yo M with history of CAD, DM, HTN, HLD, HFpEF, COPD, chronic hypoxia on intermittent 2 L O2 as needed, pulmonary hypertension, tobacco use, SAUL, chronic pain syndrome who presented on 04/25 with abd pain. On presentation, pt was tachycardic, otherwise stable. Labs showed WBC 16. CT A/P with contrast showed acute sigmoid diverticulitis with associated microperforation and a few small developing pericolonic abscesses measuring up to 17 mm, not amenable to percutaneous drainage. Gen surg was consulted, and initially had no plans for immediate surgical intervention. He was started on pip-tazo. WBC downtrended and diet slowly advanced to clear liquids. However, on 04/29, pt felt worse, with increased abd pain, chills. CT pelvis was done, which showed progressive extraluminal gas consistent with perforation, associated peritonitis with small amount of ascites. Pt was taken to the OR on 04/29 for ex-lap, sigmoid colectomy with diverting colostomy, takedown enterocolonic fistula. Per operative note, a very large inflammatory mass was seen in the lower abdomen, with a fair amount of purulent fluid within. Culture of abdominal fluid is growing GPCs and [place] alb/dub. Post-operatively, WBC increased to 15.35, now downtrended to 11.87. Endorses some abdominal discomfort. Started liquid diet yesterday. Allergies Allergy/AdvReac Type Severity Reaction Status Date / Time bee venom protein (honey bee) Allergy Severe PASSES OUT Verified 04/25/23 12:11 naproxen Allergy Intermediate SEVERE RASH Verified 04/25/23 12:11 tramadol AdvReac Intermediate GI SYMPTOMS Verified 04/25/23 12:11 Home Medications Medication Instructions Recorded Confirmed Type docusate sodium 100 mg capsule 100 mg PO BID PRN Constipation 07/02/19 04/25/23 History blood sugar diagnostic (OneTouch #100 ea 02/15/21 03/06/23 Rx Verio test strips) lancets 33 gauge (OneTouch Delica #100 ea 02/15/21 03/06/23 Rx Lancets) epinephrine 0.3 mg/0.3 mL 0.3 mg IM DIRECTED PRN Allergic 02/21/22 04/25/23 History injection, auto-injector (EpiPen) Reaction metformin 500 mg tablet,extended 1,000 mg PO DAILY #180 tabs 05/09/22 04/25/23 Rx release 24hr duloxetine 60 mg capsule,delayed 60 mg PO QAM #90 caps 07/03/22 04/25/23 Rx release furosemide 40 mg tablet 40 mg PO DAILY PRN Edema #90 tabs 07/06/22 04/25/23 Rx fluticasone fur. 100 mcg-umeclid 1 inh inhalation DAILY #60 ea 09/26/22 04/25/23 Rx 62.5 mcg-vilant 25 mcg inhalat.powder (Trelegy Ellipta) ipratropium 0.5 mg-albuterol 3 mg 3 ml inhalation QID PRN Shortness 10/22/22 04/25/23 Rx (2.5 mg base)/3 mL nebulization Of Breath #180 mL soln metoprolol tartrate 50 mg tablet 25 mg PO BID #180 tabs 10/31/22 04/25/23 Rx dicyclomine 20 mg tablet 20 mg PO BID PRN abdominal 11/06/22 04/25/23 Rx discomfort #20 tabs albuterol sulfate 90 mcg/actuation 2 puff inhalation Q4H PRN Wheezing 11/27/22 04/25/23 Rx aerosol inhaler #8.5 grams gabapentin 300 mg capsule 900 mg PO TID #270 caps 12/13/22 04/25/23 Rx tamsulosin 0.4 mg capsule 0.4 mg PO QAM 01/04/23 04/25/23 History atorvastatin 80 mg tablet 80 mg PO HS #90 tabs 01/22/23 04/25/23 Rx pantoprazole 40 mg tablet,delayed 40 mg PO BID #60 tabs 01/22/23 04/25/23 Rx release (Protonix) famotidine 40 mg tablet 40 mg PO BID #60 tabs 03/07/23 04/25/23 Rx oxycodone 15 mg tablet 15 mg PO Q6H #90 tabs 04/15/23 04/25/23 Rx morphine 15 mg tablet,extended 15 mg PO Q12H #60 tabs 04/25/23 04/25/23 Rx release Patient History Medical History (Updated 04/30/23 @ 23:30 by Nathaniel Lang MD) Acid reflux Anaplasmosis Back pain Borderline diabetes CAD (coronary artery disease) Chronic bronchitis Chronic narcotic use Chronic obstructive pulmonary disease WEARS 2L HS (WILL WEAR DURING DAY PRN SOB) Chronic pain syndrome Chronic, continuous use of opioids Diabetes mellitus type 2, uncontrolled Diastolic CHF, acute on chronic Dyshidrotic eczema Excessive daytime sleepiness Folate deficiency Gait disturbance GERD (gastroesophageal reflux disease) H/O supraventricular tachycardia Hyperlipemia Hypertension Hypertension Insomnia Internal hemorrhoids Lumbar radiculopathy 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 NSTEMI (non-ST elevated myocardial infarction) "WAS GIVEN TOO MUCH EPINEPHRINE" On home oxygen therapy WEARS O2 2L AT HS + PRN DURING DAY SOB SAUL (obstructive sleep apnea) WEARS O2 2L AT HS Pancytopenia Polyneuropathy Seborrheic keratosis Secondary pulmonary hypertension Sensorineural hearing loss (SNHL) of both ears Stomach ulcer Syncope Thrombocytopenia Tobacco abuse Transaminitis Type II diabetes mellitus Urinary frequency AT HS (REASON FOR FLOMAX) Vitamin B12 deficiency Surgical History (Updated 05/01/23 @ 08:33 by Bernard Rocha DO) H/O cardiac catheterization NO STENTS>FOLLOWS WITH DR. SALDIVAR H/O vasectomy + REVERSAL History of cholecystectomy History of colon resection (04/29/23) Exploratory Laparotomy, Sigmoid colectomywith Diverting Colostomy, Takedown enterocolonic fistula with primary Repair(Not Applicable) - Bernard Rocha DO History of colonoscopy History of tooth extraction Hx of appendectomy Hx of arthroscopic knee surgery RT/LEFT S/P appy S/P cervical spinal fusion GOOD ROM S/P tonsillectomy and adenoidectomy Family History Father Heart disease age 37 - "heart attack" Hypertension Brother Coronary heart disease Hypertension Aunt Breast cancer Mother Hypertension Thyroid disease Other Allergies Cancer Diabetes No family history of adverse response to anesthesia No significant family history Denies family history of Tuberculosis Ovarian cancer Prostate cancer Emphysema, unspecified Colorectal cancer Lung disease Asthma Social History Smoking Status: Current every day smoker Tobacco Type: Cigarettes Age Started Using Tobacco: 19; packs per day: 1; Cigarettes Per Day: 20 CIG DAILY>ADVISED; Second Hand Exposure: No; Do You Dip or Chew Tobacco: No; Hx Alcohol Use: Yes Alcohol type: beer and hard liquor Hx Substance Use: No Preferred Language: Estonian Communication Ability: Effective Visual Impairment: No Limitations Hearing Ability: Normal Stopperer Assembler Required: No Beliefs That Will Affect Care: None marital status: Current Living Situation: Spouse Current Living Situation Comment: and Son current occupational status: disabled Feels Safe at Home: Yes Childhood Exposure to Second-Hand Smoke: Yes Diet: low carbohydrate caffeine: Yes Dental Care, Regularly: No Physical Activity Frequency: Does not Exercise Seatbelt Use: always Sunscreen Use: No Assistive Devices: Cane and Oxygen - at Night Review of System A complete ROS was performed and is negative except as mentioned in the HPI. Physical Exam Physical Exam: GEN: laying in bed in NAD. HEENT: anicteric RESP: No increased work of breathing ABD: Not tense, distended. Non-tender to light palpation. Ostomy in place with liquid stool in bag. NEURO: Alert and oriented. Answers all questions appropriately. PSYCH: Normal mood, affect appropriate. Results & Data Vital Signs (Past 12 Hours) Vital Signs Temp Pulse Pulse Resp BP Pulse Ox O2 Del Method 05/03/23 07:55 88 05/03/23 07:41 36.5 C 88 16 176/96 H 92 Nasal Cannula 05/03/23 04:00 36.7 C 78 18 143/81 H 95 Nasal Cannula 05/02/23 23:44 36.5 C 80 18 145/84 H 95 Nasal Cannula O2 Flow Rate 05/03/23 07:55 07/21/23 07:41 3 05/03/23 04:00 2 05/02/23 23:44 2 Laboratory Results Short CBC 05/03/23 Range/Units 06:00 WBC 11.87 H (4.8-10.8) K/ul Hgb 11.2 L (14.0-18.0) g/dl Hct 32.6 L (42.0-52.0) % Plt Count 506 H (130-400) K/uL BMP 05/03/23 06:00 Sodium 139 Potassium 3.0 L Chloride 103 Carbon Dioxide 30 BUN 4 L Creatinine 0.54 L Glucose 103 H Calcium 8.3 L Medications Administered Current Inpatient Medications Albuterol (Albut/Ipratrop 3mg/0.5mg Neb 3 Ml Vial) 3 ml INH QID PRN; Protocol PRN Reason: Shortness Of Breath Stop: 05/25/23 17:52 Dextrose (Dextrose 50% 50 Ml Syringe) 25 - 50 ml IV UD PRN; Protocol PRN Reason: Hypoglycemia Protocol Stop: 05/25/23 13:50 Duloxetine HCl (Duloxetine Hcl 60 Mg Cap) 60 mg PO QAM [facility] Stop: 05/26/23 08:59 Last Admin: 05/03/23 09:09 Dose: 60 mg Enoxaparin Sodium (Enoxaparin Inj 40 Mg/0.4 Ml Syr) 40 mg SQ QAM [facility] Stop: 05/30/23 08:59 Last Admin: 05/03/23 09:13 Dose: 40 mg Fentanyl (Fentanyl 25 Mcg/Hr Tdsy) 25 mcg TD Q3D ERIN Stop: 05/10/23 07:59 Last Admin: 05/02/23 08:17 Dose: 25 mcg Fluticasone Furoate (Fluticasone Furoate 100mcg 14 Puffs/Inhaler) 1 puffs INH DAILY ERIN Stop: 05/26/23 08:59 Last Admin: 05/03/23 09:14 Dose: 1 puffs Gabapentin (Gabapentin 300 Mg Cap) 900 mg PO TID ERIN Stop: 05/25/23 18:29 Last Admin: 05/03/23 09:08 Dose: 900 mg Glucagon (Glucagon For Inj 1 Mg Vial) 1 mg SQ UD PRN; Protocol PRN Reason: Hypoglycemia Protocol Stop: 05/25/23 13:50 Glucose (Glucose 10 Tab/Tube) 4 - 8 tab PO UD PRN; Protocol PRN Reason: Hypoglycemia Treatment Stop: 05/25/23 13:50 Glucose (Glucose 40% Gel 15 Gm Tube) 15 - 30 gm PO UD PRN; Protocol PRN Reason: Hypoglycemia Protocol Stop: 05/25/23 13:50 Hydralazine HCl (Hydralazine Hcl 20 Mg/Ml Vial) 10 mg IV Q8 PRN PRN Reason: sbp>185 or dbp>95 Stop: 05/31/23 09:44 Hydromorphone HCl (Hydromorphone Inj 0.5 Mg/0.5 Ml Syr) 0.5 mg IV Q4H PRN PRN Reason: Severe Pain (Scale 7, 8, 9,10) Stop: 05/16/23 13:02 Last Admin: 05/03/23 10:43 Dose: 0.5 mg Famotidine 20 mg/ Syringe 5 mls @ 2.5 mls/min IV BID [facility] Stop: 05/25/23 20:59 Last Admin: 05/03/23 09:13 Dose: 2.5 mls/min Piperacillin Sod/Tazobactam (Sod 4.5 gm/ Dextrose) 120 mls @ 30 mls/hr IV Q8H [facility]; Protocol Stop: 05/05/23 19:59 Last Infusion: 05/03/23 07:50 Dose: Infused Pantoprazole Sodium 40 mg/ (Syringe) 10 mls @ 5 mls/min IV BID [facility] Stop: 05/29/23 20:59 Last Admin: 05/03/23 09:08 Dose: 5 mls/min Sodium Chloride (Nss 1000ml) 1,000 mls @ 15 mls/hr IV .Q24H [facility] Stop: 05/14/23 08:46 Last Admin: 05/03/23 09:10 Dose: Not Given Caspofungin 70 mg/ Sodium (Chloride) 260 mls @ 260 mls/hr IV ONCE ONE Stop: 05/03/23 11:09 Caspofungin 50 mg/ Sodium (Chloride) 260 mls @ 250 mls/hr IV DAILY [facility]; Protocol Stop: 05/14/23 08:59 Insulin Aspart (Insulin Aspart Per Unit Charge) 0 units SC ACHS [facility] Stop: 05/28/23 07:29 Last Admin: 05/03/23 09:18 Dose: Not Given Metoprolol Tartrate (Metoprolol Tartrate 25 Mg Tab) 25 mg PO BID [facility] Stop: 05/25/23 20:59 Last Admin: 05/03/23 09:11 Dose: 25 mg Miscellaneous (Carbohydrates For Hypoglycemia ) 15 - 30 gm PO UD PRN PRN Reason: Hypoglycemia Protocol Stop: 05/25/23 13:50 Miscellaneous (Remove Nicoderm Patch) 1 each N/A DAILY@0859 [facility] Stop: 05/26/23 08:58 Last Admin: 05/03/23 09:10 Dose: Not Given Miscellaneous (Check Fentanyl Patch Placement) 1 each N/A QS [facility] Stop: 05/26/23 07:59 Last Admin: 05/03/23 09:15 Dose: 1 each Miscellaneous (Fentanyl Patch Remove & Waste) 1 each N/A Q3D [facility] Stop: 05/26/23 07:59 Last Admin: 05/02/23 08:19 Dose: 1 each Naloxone HCl (Naloxone Hcl 0.4 Mg/1 Ml Vial/Carp) 0.4 mg IV PRN PRN PRN Reason: Oversedation/Resp Depression Stop: 05/30/23 04:36 Nicotine (Nicotine 21 Mg/24 Hr Tdsy) 21 mg TD QAM [facility] Stop: 05/26/23 08:59 Last Admin: 05/03/23 09:10 Dose: Not Given Tamsulosin HCl (Tamsulosin Hcl 0.4 Mg Cap) 0.4 mg PO QAM [facility] Stop: 05/26/23 08:59 Last Admin: 05/03/23 09:08 Dose: 0.4 mg Tapentadol (Tapentadol Hcl 50 Mg Tab) 50 mg PO Q4H PRN PRN Reason: Moderate Pain (Scale 4, 5, 6) Stop: 05/16/23 13:03 Last Admin: 05/03/23 03:54 Dose: 50 mg Umeclidinium/Vilanterol (Umeclidinium/Vilanterol 62.5/25mcg 7 Puffs/Inhaler) 1 puffs INH DAILY [facility] Stop: 05/26/23 08:59 Last Admin: 05/03/23 09:09 Dose: 1 puffs
[2023-05-03] MEDS ORDERED: CASPOFUNGIN 70 MG in SODIUM CHLORIDE 0.9% 250 ML IV ONE (11:15)
[2023-05-03] MEDS ORDERED: POTASSIUM CHLORIDE 20 MEQ/15 ML UDC PO STA (17:32)
[2023-05-03] MEDS ORDERED: MAGNESIUM SULFATE / D5W 1 GM/100 ML BAG IV ONE (18:00)
[2023-05-03] MEDS: POTASSIUM CHLORIDE / WTR 10 MEQ/100 ML PLCT IV SCH ×3 (18:10→19:46)
[2023-05-04] MEDS: CHECK fentaNYL PATCH PLACEMENT SCH ×4 (00:26→23:23)
[2023-05-04] MEDS: HYDROmorphone INJ 0.5 MG/0.5 ML SYR IV PRN ×4 (02:22→18:35)
[2023-05-04] MEDS: PIPERACILLIN/TAZOBACTAM 4.5 GM in DEXTROSE 5% 100 ML IV SCH ×3 (04:41→19:40)
--- NOTE | 2023-05-04 06:37 | Surgery Progress Note ---
Date of Service May 04, 2023 Assessment & Plan (1) History of colon resection: Plan: Continues to improve Return of bowel function we will advance his diet We will DC his TEMI drain since its not functioning Continue physical therapy and increase activity each day Continue IV antibiotics for now Admission and Anticipated Discharge Date Admission Date: April 25, 2023 Subjective Feeling well today. Minimal pain. No nausea or vomiting. Physical Exam Physical Exam: AFVSS NAD, A&O x3 Abdomen: Soft, nontender, nondistended Ostomy working, pink and viable Results & Data Vital Signs (Past 12 Hours) Vital Signs Temp Pulse Pulse Resp BP Pulse Ox O2 Del Method 05/04/23 02:48 36.7 C 76 18 151/88 H 95 Nasal Cannula 05/03/23 22:02 90 05/03/23 22:00 36.6 C 90 20 135/86 95 Nasal Cannula 05/03/23 21:30 Nasal Cannula 05/03/23 19:00 36.4 C L 93 H 20 149/91 H 94 Nasal Cannula O2 Flow Rate 05/04/23 02:48 2 05/03/23 22:02 05/03/23 22:00 3 05/03/23 21:30 2 05/03/23 19:00 3
--- NOTE | 2023-05-04 07:42 | Hospitalist Progress Note ---
Date of Service May 04, 2023 Assessment & Plan (1) Diverticulitis of colon with perforation: Plan: presented with severe sigmoid diverticulitis with microperforation, peritoneal soiling & small diverticular abscesses. OR 04/29 --> s/p Exploratory Laparotomy, copious purulent peritoneal fluid , Sigmoid colectomy with Diverting Colostomy, Takedown entero-colonic fistula with primary Repair - Bernard Rocha, DO Cultures concerning for gram-positive cocci and fungus [place] , infectious disease consult Recommendations: -Started caspofungin 70 mg x 1 today, then 50 mg daily to cover [place] albicans/dubliniensis -Continue pip-tazo -Follow-up abd fluid cx for identification of GPC now VRE, add daptomycin NG tube removed 04/30/23 surgery allowing advancing diet KNITTER MECHANIC discontinued 05/[address] in [address] of oxycodone to try to reduce any GI effects. Good pain control so far we will have backup Dilaudid parenteral if needed for pain control patient on chronic pain medication therapy at home including extended release morphine and oxycodone typically taking about 120 morphine Eliquis once a day subsequently is fentanyl patches 25 this delivers about 60 a day we will discuss with patient regarding our strategy moving forward whether we should increase his patch or whether he feels he has good pain control with the fentanyl and Nucynta (2) Hypertension: Plan: chronic and uncontrolled metoprolol 25mg BID , added hydralazine prn (3) COPD (chronic obstructive pulmonary disease): Plan: chronic and Stable. No exacerbation at this time. Pulmonary toilet. (4) DM II (diabetes mellitus, type II), controlled: Plan: BSGs controlled. Holding metformin. SSI novolog. (5) Chronic pain syndrome: Plan: Fentanyl patch 25mcg q3d being used in place of morphine BID. try Nucynta with breakthrough Dilaudid for pain control chronic pain - l-spine, c-spine. (6) Tobacco abuse: Plan: Nicoderm patch 21mg/day. (7) SAUL (obstructive sleep apnea): Plan: no longer using CPAP at home. (8) DVT prophylaxis: Plan: lovenox 40mg daily Admission and Anticipated Discharge Date Admission Date: April 25, 2023 Subjective pt is tolerating regular diet, is having some ostomy output. pt asking about chronic pain medications, is typically on about 120 mme a day and his current fentanyl 25 is equavent to 60 mme will discuss if wants to keep fentanyl over returning to morphine and oxycodone Physical Exam Physical Exam: awake alert appropriate transitioning from KNITTER MECHANIC cardiac exam is regular lungs are clear abdomen with impeoved bowel sounds ostomy left lower quadrant now with better out put Results & Data Results & Data Vital Signs (Past 12 Hours) Vital Signs Temp Pulse Pulse Resp BP Pulse Ox O2 Del Method 05/04/23 07:23 72 05/04/23 02:48 98.1 F 76 18 151/88 H 95 Nasal Cannula 05/03/23 22:02 90 05/03/23 22:00 97.9 F 90 20 135/86 95 Nasal Cannula 05/03/23 21:30 Nasal Cannula O2 Flow Rate 05/04/23 07:23 05/04/23 02:48 2 05/03/23 22:02 05/03/23 22:00 3 05/03/23 21:30 2 Laboratory Results reviewed chemistry phosphorus magnesium PG Care Time/CCT Total # of Minutes Spent Total Time Spent with Patient: Total time spent is greater than 50% in coordination of care (as documented) at patient's floor/unit and/or counseling patient: Coding Level of Care Code 60274 SUB INP/OBS CARE MIN Diagnoses Diverticulitis of colon with perforation K57.20 Hypertension I10 COPD (chronic obstructive pulmonary disease) J44.9 DM II (diabetes mellitus, type II), controlled E11.9 Chronic pain syndrome G89.4 Tobacco abuse Z72.0 SAUL (obstructive sleep apnea) G47.33 DVT prophylaxis Z29.9
[2023-05-04] MEDS: TAPENTADOL HCL 50 MG TAB PO PRN ×3 (07:48→23:52)
[2023-05-04] MEDS: GABAPENTIN 300 MG CAP PO SCH ×3 (08:54→20:18)
[2023-05-04] MEDS: METOPROLOL TARTRATE 25 MG TAB PO SCH ×2 (08:54→20:18)
[2023-05-04] MEDS: PANTOprazole 40 MG in SYRINGE 0 ML IV SCH ×2 (08:54→19:40)
[2023-05-04] MEDS: INSULIN ASPART PER UNIT CHARGE SC SCH ×4 (08:54→20:14)
[2023-05-04] MEDS: SODIUM CHLORIDE 0.9% 1000ML 1,000 ML IV SCH (08:55)
[2023-05-04] MEDS: ENOXAPARIN INJ 40 MG/0.4 ML SYR SQ SCH (08:55)
[2023-05-04] MEDS: FLUTICASONE FUROATE 100MCG 14 PUFFS/INHALER INH SCH (08:55)
[2023-05-04] MEDS: UMECLIDINIUM/VILANTEROL 62.5/25MCG 7 PUFFS/INHALER INH SCH (08:55)
[2023-05-04] MEDS: TAMSULOSIN HCL 0.4 MG CAP PO SCH (08:55)
[2023-05-04] MEDS: DULoxetine HCL 60 MG CAP PO SCH (08:56)
[2023-05-04] MEDS: NICOTINE 21 MG/24 HR TDSY TD SCH (09:05)
[2023-05-04] MEDS: CASPOFUNGIN 50 MG in SODIUM CHLORIDE 0.9% 250 ML IV SCH (09:08)
[2023-05-04] MEDS: FAMOTIDINE 20 MG in SYRINGE 3 ML IV SCH ×2 (09:08→19:39)
[2023-05-04 09:51] LABS: BUN Creatinine Ratio 8.8 (10-20); Calcium 8.7 mg/dl (8.6-10.3); Est GFR (African American) 130.3 ml/min; Est GFR (Non-African American) 112.4 ml/min; Magnesium 1.9 mg/dl (1.7-2.4); Phosphorus 2.9 mg/dl (2.5-4.9); Potassium 3.4 mmol/L (3.5-5.1)
[2023-05-04] MEDS ORDERED: POTASSIUM CHLORIDE 20 MEQ/15 ML UDC PO STA (16:54)
[2023-05-04] MEDS ORDERED: DAPTOmycin 400 MG in SYRINGE 0 ML IV SCH (17:00)
[2023-05-04] MEDS: DAPTOmycin 600 MG in SYRINGE 0 ML IV SCH (17:36)
[2023-05-05] MEDS: HYDROmorphone INJ 0.5 MG/0.5 ML SYR IV PRN ×4 (02:20→19:44)
[2023-05-05] MEDS: PIPERACILLIN/TAZOBACTAM 4.5 GM in DEXTROSE 5% 100 ML IV SCH ×2 (03:49→12:09)
[2023-05-05] MEDS: INSULIN ASPART PER UNIT CHARGE SC SCH ×4 (07:35→20:32)
[2023-05-05] MEDS: CHECK fentaNYL PATCH PLACEMENT SCH ×3 (08:45→23:54)
[2023-05-05] MEDS: fentaNYL 25 MCG/HR TDSY TD SCH (08:45)
[2023-05-05] MEDS: UMECLIDINIUM/VILANTEROL 62.5/25MCG 7 PUFFS/INHALER INH SCH (08:49)
[2023-05-05] MEDS: PANTOprazole 40 MG in SYRINGE 0 ML IV SCH ×2 (08:50→20:32)
[2023-05-05] MEDS: FLUTICASONE FUROATE 100MCG 14 PUFFS/INHALER INH SCH (08:50)
[2023-05-05] MEDS: TAMSULOSIN HCL 0.4 MG CAP PO SCH (08:50)
[2023-05-05] MEDS: DULoxetine HCL 60 MG CAP PO SCH (08:50)
[2023-05-05] MEDS: METOPROLOL TARTRATE 25 MG TAB PO SCH ×2 (08:50→17:43)
[2023-05-05] MEDS: GABAPENTIN 300 MG CAP PO SCH ×3 (08:50→20:32)
[2023-05-05] MEDS: SODIUM CHLORIDE 0.9% 1000ML 1,000 ML IV SCH (08:51)
[2023-05-05] MEDS: ENOXAPARIN INJ 40 MG/0.4 ML SYR SQ SCH (08:51)
[2023-05-05] MEDS: NICOTINE 21 MG/24 HR TDSY TD SCH (08:51)
[2023-05-05] MEDS: CASPOFUNGIN 50 MG in SODIUM CHLORIDE 0.9% 250 ML IV SCH (08:54)
[2023-05-05] MEDS: FAMOTIDINE 20 MG in SYRINGE 3 ML IV SCH ×2 (08:54→20:32)
[2023-05-05] MEDS: TAPENTADOL HCL 50 MG TAB PO PRN ×2 (11:02→17:16)
--- NOTE | 2023-05-05 11:30 | Surgery Progress Note ---
Date of Service May 05, 2023 Assessment & Plan (1) History of colon resection: Plan: Continues to improve Return of bowel function we will advance his diet Continue physical therapy and increase activity each day Continue IV antibiotics for now Admission and Anticipated Discharge Date Admission Date: April 25, 2023 Subjective Feeling well. Tolerating diet. No nausea or vomiting. No fevers or chills. Physical Exam Physical Exam: AFVSS NAD, A&O x3 Abdomen: Soft, nontender, nondistended Ostomy working, pink and viable Results & Data Vital Signs (Past 12 Hours) Vital Signs Temp Pulse Pulse Resp BP Pulse Ox O2 Del Method 05/05/23 09:53 Nasal Cannula 05/05/23 07:20 36.6 C 82 18 165/90 H 94 Nasal Cannula 05/05/23 06:50 71 05/05/23 03:00 36.9 C 78 20 144/78 H 95 Nasal Cannula O2 Flow Rate 05/05/23 09:53 2 05/05/23 07:20 2 05/05/23 06:50 05/05/23 03:00 3
--- NOTE | 2023-05-05 16:12 | Hospitalist Progress Note ---
Date of Service May 05, 2023 Assessment & Plan (1) Diverticulitis of colon with perforation: Plan: presented with severe sigmoid diverticulitis with microperforation, peritoneal soiling & small diverticular abscesses. OR 04/29 --> s/p Exploratory Laparotomy, copious purulent peritoneal fluid , Sigmoid colectomy with Diverting Colostomy, Takedown entero-colonic fistula with primary Repair - Bernard Rocha, DO Cultures concerning for VRE and fungus [place] , infectious disease consult Recommendations: -Started caspofungin 70 mg x 1, then 50 mg daily to cover [place] albicans/dubliniensis -Continue pip-tazo -Follow-up abd fluid cx for identification of GPC now VRE, add daptomycin NG tube removed 04/30/23 surgery allowing advancing diet THICKENER OPERATOR discontinued 05/[address] of oxycodone to try to reduce any GI effects. Good pain control so far we will have backup Dilaudid parenteral if needed for pain control patient on chronic pain medication therapy at home including extended release morphine and oxycodone typically taking about 120 morphine equivalents once a day, subsequently current fentanyl patches 25 this delivers about 60 a day pt feels he wishes to continue fentanyl and that his current chronic pain is not as well controlled agree to increase fentanyl and they have this as his chronic opioid. (2) Hypertension: Plan: chronic a controlled with metoprolol increased dose 05/05/23 , added hydralazine prn (3) COPD (chronic obstructive pulmonary disease): Plan: chronic and Stable. No exacerbation at this time. Pulmonary toilet. (4) DM II (diabetes mellitus, type II), controlled: Plan: BSGs controlled. resume metformin. SSI novolog. (5) Chronic pain syndrome: Plan: Fentanyl patch 50mcg q3d being used in place of morphine BID. try Nucynta with breakthrough Dilaudid for pain control chronic pain - l-spine, c-spine. (6) Tobacco abuse: Plan: Nicoderm patch 21mg/day. (7) SAUL (obstructive sleep apnea): Plan: no longer using CPAP at home. (8) DVT prophylaxis: Plan: lovenox 40mg daily Admission and Anticipated Discharge Date Admission Date: April 25, 2023 Subjective Feeling well. Tolerating diet. No nausea or vomiting. No fevers or chills. updated at bedside, encouraged ostomy education Physical Exam Physical Exam: awake alert appropriate transitioning from THICKENER OPERATOR cardiac exam is regular lungs are clear abdomen with improved bowel sounds ostomy left lower quadrant now with better out put Results & Data Results & Data Vital Signs (Past 12 Hours) Vital Signs Temp Pulse Pulse Resp BP Pulse Ox Pulse Ox 05/05/23 15:00 94 05/05/23 14:55 98.1 F 79 18 144/90 H 96 05/05/23 11:28 98.2 F 72 18 155/90 H 94 05/05/23 09:53 05/05/23 07:20 97.9 F 82 18 165/90 H 94 05/05/23 06:50 71 O2 Del Method O2 Del Method O2 Flow Rate O2 Flow Rate 05/05/23 15:00 Nasal Cannula 2 05/05/23 14:55 Nasal Cannula 2 05/05/23 11:28 Nasal Cannula 2 05/05/23 09:53 Nasal Cannula 2 05/05/23 07:20 Nasal Cannula 2 05/05/23 06:50 PG Care Time/CCT Total # of Minutes Spent Total Time Spent with Patient: Total time spent is greater than 50% in coordination of care (as documented) at patient's floor/unit and/or counseling patient: Coding Level of Care Code 49956 SUB INP/OBS CARE MIN Diagnoses Diverticulitis of colon with perforation K57.20 Hypertension I10 COPD (chronic obstructive pulmonary disease) J44.9 DM II (diabetes mellitus, type II), controlled E11.9 Chronic pain syndrome G89.4 Tobacco abuse Z72.0 SAUL (obstructive sleep apnea) G47.33 DVT prophylaxis Z29.9
[2023-05-05] MEDS: fentaNYL 50 MCG/HR TDSY TD SCH (16:39)
[2023-05-05] MEDS: DAPTOmycin 600 MG in SYRINGE 0 ML IV SCH (17:16)
[2023-05-05] MEDS: metFORMIN HCL 500 MG TAB PO SCH (17:43)
[2023-05-06] MEDS: HYDROmorphone INJ 0.5 MG/0.5 ML SYR IV PRN ×4 (01:23→19:50)
[2023-05-06] MEDS: METOPROLOL TARTRATE 25 MG TAB PO SCH (05:45)
[2023-05-06] MEDS: CHECK fentaNYL PATCH PLACEMENT SCH ×3 (07:55→23:07)
[2023-05-06] MEDS ORDERED: METOPROLOL TARTRATE 25 MG TAB PO ONE (08:00)
[2023-05-06] MEDS: INSULIN ASPART PER UNIT CHARGE SC SCH ×4 (08:02→20:55)
[2023-05-06] MEDS: NICOTINE 21 MG/24 HR TDSY TD SCH (08:26)
[2023-05-06] MEDS: UMECLIDINIUM/VILANTEROL 62.5/25MCG 7 PUFFS/INHALER INH SCH (08:26)
[2023-05-06] MEDS: FLUTICASONE FUROATE 100MCG 14 PUFFS/INHALER INH SCH (08:26)
[2023-05-06] MEDS: GABAPENTIN 300 MG CAP PO SCH ×3 (08:27→21:24)
[2023-05-06] MEDS: TAMSULOSIN HCL 0.4 MG CAP PO SCH (08:27)
[2023-05-06] MEDS: DULoxetine HCL 60 MG CAP PO SCH (08:27)
[2023-05-06] MEDS: SODIUM CHLORIDE 0.9% 1000ML 1,000 ML IV SCH (08:27)
[2023-05-06] MEDS: metFORMIN HCL 500 MG TAB PO SCH ×2 (08:28→17:01)
[2023-05-06] MEDS: ENOXAPARIN INJ 40 MG/0.4 ML SYR SQ SCH (08:28)
[2023-05-06] MEDS: FAMOTIDINE 20 MG in SYRINGE 3 ML IV SCH ×2 (08:33→21:24)
[2023-05-06] MEDS: PANTOprazole 40 MG in SYRINGE 0 ML IV SCH ×2 (08:33→21:25)
[2023-05-06] MEDS: CASPOFUNGIN 50 MG in SODIUM CHLORIDE 0.9% 250 ML IV SCH (08:39)
--- NOTE | 2023-05-06 09:13 | Infectious Disease Progress Nt ---
Date of Service May 06, 2023 Assessment & Plan (1) Diverticulitis of colon with perforation: (2) Peritonitis: Plan Micro: 04/29 Abd fluid: VRE (S dapto), [place] alb/dub, "low counts of probable skin pauline" 04/25 BCx x2: coag neg Staph in 1/ bottles Abx: Pip-tazo 04/25 - 05/05 Caspofungin 05/03 - present Daptomycin 05/04 - present Problems: #Secondary peritonitis #Perforated acute sigmoid diverticulitis 57 yo M with history of CAD, DM, HTN, HLD, HFpEF, COPD, chronic hypoxia on intermittent 2 L O2 as needed, pulmonary hypertension, tobacco use, SAUL, chronic pain syndrome who presented on 04/25 with abd pain, found to have perforated sigmoid diverticulitis, peritonitis, s/p ex-lap and sigmoid colectomy with diverting colostomy on 04/29. On presentation, pt was tachycardic, WBC 16. CT A/P with contrast showed acute sigmoid diverticulitis with associated microperforation and a few small developing pericolonic abscesses measuring up to 17 mm, not amenable to percutaneous drainage. Gen surg was consulted, and initially had no plans for immediate surgical intervention. He was started on pip-tazo. WBC downtrended and diet slowly advanced to clear liquids. However, on 04/29, pt felt worse, with increased abd pain, chills. CT pelvis showed progressive extraluminal gas consistent with perforation, associated peritonitis with small amount of ascites. Pt was taken to the OR on 04/29 for ex-lap, sigmoid colectomy with diverting colostomy, takedown enterocolonic fistula. Per operative note, a very large inflammatory mass was seen in the lower abdomen, with a fair amount of purulent fluid within. Culture of abdominal fluid grew VRE and [place] alb/dub. Post-operatively, leukocytosis has downtrended. Pt is progressing and diet is advancing. Recommendations: -For coverage of gram negatives, anaerobes: Pip-tazo concluded on 05/05; has completed 7 days post-op which should be sufficient if source control was obtained. -For coverage of [place]: Can continue caspofungin 50 mg daily to complete a 7 day course through 05/09. If discharging, can transition to fluconazole 400 mg PO daily to complete the course. -For coverage of VRE: Increased daptomycin to 750 mg daily. Ordered CK today for monitoring. Continue to complete 7 day course through 05/10. If discharging, can transition to linezolid 600 mg PO q12h to complete the course. Will sign off. Please page [facility] with further questions. Admission and Anticipated Discharge Date Admission Date: April 25, 2023 Subjective This patient recommendation is based on a telemedicine consult request which was completed asynchronously through chart review and information provided by the primary physician. The patient was not seen or examined today. The evaluation is consultative in nature and all patient care and treatment decisions can either be accepted or rejected by the patient's primary hospital-based treating physician using their own independent medical judgment for their patient. Time Spent Reviewing Chart: 11 - 20 minutes pt not seen Review of System pt not seen Physical Exam Physical Exam: pt not seen Results & Data Vital Signs (Past 12 Hours) Vital Signs Temp Pulse Resp BP BP Pulse Ox O2 Del Method 05/06/23 07:45 37.0 C 72 20 168/98 H 92 Room Air 05/06/23 05:45 79 162/104 H 05/05/23 23:38 36.6 C 72 20 170/81 H 92 Room Air 05/05/23 22:27 Room Air Medications Administered Current Inpatient Medications Albuterol (Albut/Ipratrop 3mg/0.5mg Neb 3 Ml Vial) 3 ml INH QID PRN; Protocol PRN Reason: Shortness Of Breath Stop: 05/25/23 17:52 Dextrose (Dextrose 50% 50 Ml Syringe) 25 - 50 ml IV UD PRN; Protocol PRN Reason: Hypoglycemia Protocol Stop: 05/25/23 13:50 Duloxetine HCl (Duloxetine Hcl 60 Mg Cap) 60 mg PO QAM ERIN Stop: 05/26/23 08:59 Last Admin: 05/06/23 08:27 Dose: 60 mg Enoxaparin Sodium (Enoxaparin Inj 40 Mg/0.4 Ml Syr) 40 mg SQ QAM ERIN Stop: 05/30/23 08:59 Last Admin: 05/06/23 08:28 Dose: 40 mg Fentanyl (Fentanyl 50 Mcg/Hr Tdsy) 50 mcg TD Q3D ERIN Stop: 05/19/23 16:08 Last Admin: 05/05/23 16:39 Dose: 50 mcg Fluticasone Furoate (Fluticasone Furoate 100mcg 14 Puffs/Inhaler) 1 puffs INH DAILY ERIN Stop: 05/26/23 08:59 Last Admin: 05/06/23 08:26 Dose: 1 puffs Gabapentin (Gabapentin 300 Mg Cap) 900 mg PO TID ERIN Stop: 05/25/23 18:29 Last Admin: 05/06/23 08:27 Dose: 900 mg Glucagon (Glucagon For Inj 1 Mg Vial) 1 mg SQ UD PRN; Protocol PRN Reason: Hypoglycemia Protocol Stop: 05/25/23 13:50 Glucose (Glucose 10 Tab/Tube) 4 - 8 tab PO UD PRN; Protocol PRN Reason: Hypoglycemia Treatment Stop: 05/25/23 13:50 Glucose (Glucose 40% Gel 15 Gm Tube) 15 - 30 gm PO UD PRN; Protocol PRN Reason: Hypoglycemia Protocol Stop: 05/25/23 13:50 Hydralazine HCl (Hydralazine Hcl 20 Mg/Ml Vial) 10 mg IV Q8 PRN PRN Reason: sbp>185 or dbp>95 Stop: 05/31/23 09:44 Hydromorphone HCl (Hydromorphone Inj 0.5 Mg/0.5 Ml Syr) 0.5 mg IV Q4H PRN PRN Reason: Severe Pain (Scale 7, 8, 9,10) Stop: 05/16/23 13:02 Last Admin: 05/06/23 08:24 Dose: 0.5 mg Famotidine 20 mg/ Syringe 5 mls @ 2.5 mls/min IV BID ERIN Stop: 05/25/23 20:59 Last Admin: 05/06/23 08:33 Dose: 2.5 mls/min Pantoprazole Sodium 40 mg/ (Syringe) 10 mls @ 5 mls/min IV BID ERIN Stop: 05/29/23 20:59 Last Admin: 05/06/23 08:33 Dose: 5 mls/min Sodium Chloride (Nss 1000ml) 1,000 mls @ 15 mls/hr IV .Q24H ERIN Stop: 05/14/23 08:46 Last Admin: 05/06/23 08:27 Dose: Not Given Caspofungin 50 mg/ Sodium (Chloride) 260 mls @ 250 mls/hr IV DAILY ERIN; Protocol Stop: 05/14/23 08:59 Last Admin: 05/06/23 08:39 Dose: 250 mls/hr Daptomycin 600 mg/ Syringe 12 mls @ 6 mls/min IV Q24H PENDING SALE TO [facility]; Protocol Stop: 05/08/23 17:29 Last Admin: 05/05/23 17:16 Dose: 6 mls/min Insulin Aspart (Insulin Aspart Per Unit Charge) 0 units SC ACHS PENDING SALE TO [facility] Stop: 05/28/23 07:29 Last Admin: 05/06/23 08:02 Dose: Not Given Metformin HCl (Metformin Hcl 500 Mg Tab) 500 mg PO BIDM PENDING SALE TO [facility] Stop: 06/04/23 16:59 Last Admin: 05/06/23 08:28 Dose: 500 mg Metoprolol Tartrate (Metoprolol Tartrate 50 Mg Tab) 50 mg PO Q12 PENDING SALE TO [facility] Stop: 06/05/23 20:59 Miscellaneous (Carbohydrates For Hypoglycemia ) 15 - 30 gm PO UD PRN PRN Reason: Hypoglycemia Protocol Stop: 05/25/23 13:50 Miscellaneous (Remove Nicoderm Patch) 1 each N/A DAILY@0859 PENDING SALE TO [facility] Stop: 05/26/23 08:58 Last Admin: 05/06/23 08:26 Dose: Not Given Miscellaneous (Check Fentanyl Patch Placement) 1 each N/A QS PENDING SALE TO [facility] Stop: 05/26/23 07:59 Last Admin: 05/06/23 07:55 Dose: 1 each Miscellaneous (Fentanyl Patch Remove & Waste) 1 each N/A Q3D PENDING SALE TO [facility] Stop: 06/04/23 16:44 Last Admin: 05/05/23 16:39 Dose: 1 each Naloxone HCl (Naloxone Hcl 0.4 Mg/1 Ml Vial/Carp) 0.4 mg IV PRN PRN PRN Reason: Oversedation/Resp Depression Stop: 05/30/23 04:36 Nicotine (Nicotine 21 Mg/24 Hr Tdsy) 21 mg TD QAM PENDING SALE TO [facility] Stop: 05/26/23 08:59 Last Admin: 05/06/23 08:26 Dose: Not Given Tamsulosin HCl (Tamsulosin Hcl 0.4 Mg Cap) 0.4 mg PO QAM PENDING SALE TO [facility] Stop: 05/26/23 08:59 Last Admin: 05/06/23 08:27 Dose: 0.4 mg Tapentadol (Tapentadol Hcl 50 Mg Tab) 100 mg PO Q6H PRN PRN Reason: Moderate Pain (Scale 4, 5, 6) Stop: 05/16/23 13:03 Last Admin: 05/05/23 17:16 Dose: 100 mg Umeclidinium/Vilanterol (Umeclidinium/Vilanterol 62.5/25mcg 7 Puffs/Inhaler) 1 puffs INH DAILY ERIN Stop: 05/26/23 08:59 Last Admin: 05/06/23 08:26 Dose: 1 puffs
--- NOTE | 2023-05-06 09:15 | Surgery Progress Note ---
Date of Service May 06, 2023 Assessment & Plan (1) History of colon resection: Plan: He is doing well from my standpoint. He can be changed to oral antibiotics when primary service is ready Discharge planning Admission and Anticipated Discharge Date Admission Date: April 25, 2023 Subjective Patient seen. Doing very well. Eating food without difficulty and he overall feels well Physical Exam Physical Exam: Alert. No acute distress His incision looks good Stoma looks good as well with good output Results & Data Vital Signs (Past 12 Hours) Vital Signs Temp Pulse Resp BP BP Pulse Ox O2 Del Method 05/06/23 07:45 37.0 C 72 20 168/98 H 92 Room Air 05/06/23 05:45 79 162/104 H 05/05/23 23:38 36.6 C 72 20 170/81 H 92 Room Air 05/05/23 22:27 Room Air PG Care Time/CCT Total # of Minutes Spent Total Time Spent with Patient: Total time spent is greater than 50% in coordination of care (as documented) at patient's floor/unit and/or counseling patient: Coding Level of Care Code 00771 Post Operative Follow-Up Diagnoses History of colon resection Z90.49
--- NOTE | 2023-05-06 09:16 | Surgery Progress Note ---
Date of Service May 06, 2023 Assessment & Plan (1) History of colon resection: Plan: Is doing very well from my standpoint Can be changed to oral antibiotics when primary service is ready Discharge planning Admission and Anticipated Discharge Date Admission Date: April 25, 2023 Subjective Patient seen. He is doing very well. Tolerating diet. He has no complaints this morning Physical Exam Physical Exam: Alert. No acute distress Abdomen is soft. Incision looks good. Stoma is viable with good output Results & Data Vital Signs (Past 12 Hours) Vital Signs Temp Pulse Resp BP BP Pulse Ox O2 Del Method 05/06/23 07:45 37.0 C 72 20 168/98 H 92 Room Air 05/06/23 05:45 79 162/104 H 05/05/23 23:38 36.6 C 72 20 170/81 H 92 Room Air 05/05/23 22:27 Room Air PG Care Time/CCT Total # of Minutes Spent Total Time Spent with Patient: Total time spent is greater than 50% in coordination of care (as documented) at patient's floor/unit and/or counseling patient: Coding Level of Care Code 62673 Post Operative Follow-Up Diagnoses History of colon resection Z90.49
[2023-05-06] MEDS: TAPENTADOL HCL 50 MG TAB PO PRN (13:02)
--- NOTE | 2023-05-06 16:25 | Hospitalist Progress Note ---
Date of Service May 06, 2023 Assessment & Plan (1) Diverticulitis of colon with perforation: Plan: presented with severe sigmoid diverticulitis with microperforation, peritoneal soiling & small diverticular abscesses. OR 04/29 --> s/p Exploratory Laparotomy, copious purulent peritoneal fluid , Sigmoid colectomy with Diverting Colostomy, Takedown entero-colonic fistula with primary Repair - Bernard Rocha, DO Cultures concerning for VRE and fungus [place] , infectious disease consult: Recommendations: -For coverage of gram negatives, anaerobes: Pip-tazo concluded on 05/05; has completed 7 days post-op which should be sufficient if source control was o btained. -For coverage of [place]: Can continue caspofungin 50 mg daily to complete a 7 day course through 05/09. If discharging, can transition to fluconazole 400 mg PO daily to complete the course. -For coverage of VRE: Increased daptomycin to 750 mg daily. Ordered CK today for monitoring. Continue to complete 7 day course through 05/10. If discharging, can transition to linezolid 600 mg PO q12h to complete the course. 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 Good pain control so far we will have backup Dilaudid parenteral if needed for pain control patient on chronic pain medication therapy at home including extended release morphine and oxycodone typically taking about 120 morphine equivalents once a day, subsequently current fentanyl patches 25 this delivers about 60 a day pt feels he wishes to continue fentanyl and that his current chronic pain is not as well controlled agree to increase fentanyl and they have this as his chronic opioid. (2) Hypertension: Plan: chronic a controlled with metoprolol increased dose 05/05/23 , added hydralazine prn (3) COPD (chronic obstructive pulmonary disease): Plan: chronic and Stable. No exacerbation at this time. Pulmonary toilet. (4) DM II (diabetes mellitus, type II), controlled: Plan: BSGs controlled. resume metformin. SSI novolog. (5) Chronic pain syndrome: Plan: Fentanyl patch 50mcg q3d being used in place of morphine BID. try Nucynta with breakthrough Dilaudid for pain control chronic pain - l-spine, c-spine. (6) Tobacco abuse: Plan: Nicoderm patch 21mg/day. (7) SAUL (obstructive sleep apnea): Plan: no longer using CPAP at home. (8) DVT prophylaxis: Plan: lovenox 40mg daily Admission and Anticipated Discharge Date Admission Date: April 25, 2023 Subjective pt was seen in room, still not comfortable with ostomy care and did not have with good training yet, maybe one or two days ID did sign off but leave recommendations Physical Exam Physical Exam: awake alert appropriate transitioning from DRIVER HELPER cardiac exam is regular lungs are clear abdomen with improved bowel sounds ostomy left lower quadrant now with better out put Results & Data Results & Data Vital Signs (Past 12 Hours) Vital Signs Temp Pulse Resp BP BP Pulse Ox O2 Del Method 05/06/23 16:03 98.2 F 79 20 142/84 H 92 Room Air 05/06/23 11:13 98.2 F 78 20 155/80 H 93 Room Air 05/06/23 07:45 98.6 F 72 20 168/98 H 92 Room Air 05/06/23 05:45 79 162/104 H PG Care Time/CCT Total # of Minutes Spent Total Time Spent with Patient: Total time spent is greater than 50% in coordination of care (as documented) at patient's floor/unit and/or counseling patient: Coding Level of Care Code 47788 SUB INP/OBS CARE 235MIN Diagnoses Diverticulitis of colon with perforation K57.20 Hypertension I10 COPD (chronic obstructive pulmonary disease) J44.9 DM II (diabetes mellitus, type II), controlled E11.9 Chronic pain syndrome G89.4 Tobacco abuse Z72.0 SAUL (obstructive sleep apnea) G47.33 DVT prophylaxis Z29.9
[2023-05-06] MEDS: DAPTOmycin 750 MG in SYRINGE 0 ML IV SCH (17:01)
[2023-05-06] MEDS: METOPROLOL TARTRATE 50 MG TAB PO SCH (21:24)
[2023-05-07] MEDS: HYDROmorphone INJ 0.5 MG/0.5 ML SYR IV PRN ×5 (00:25→22:39)
[2023-05-07] MEDS: CHECK fentaNYL PATCH PLACEMENT SCH ×2 (07:43→15:53)
[2023-05-07] MEDS: CASPOFUNGIN 50 MG in SODIUM CHLORIDE 0.9% 250 ML IV SCH (07:43)
[2023-05-07] MEDS: FAMOTIDINE 20 MG in SYRINGE 3 ML IV SCH ×2 (07:44→22:36)
[2023-05-07] MEDS: ENOXAPARIN INJ 40 MG/0.4 ML SYR SQ SCH (07:45)
[2023-05-07] MEDS: NICOTINE 21 MG/24 HR TDSY TD SCH (07:46)
[2023-05-07] MEDS: FLUTICASONE FUROATE 100MCG 14 PUFFS/INHALER INH SCH (07:46)
[2023-05-07] MEDS: SODIUM CHLORIDE 0.9% 1000ML 1,000 ML IV SCH (07:46)
[2023-05-07] MEDS: UMECLIDINIUM/VILANTEROL 62.5/25MCG 7 PUFFS/INHALER INH SCH (07:47)
[2023-05-07] MEDS: metFORMIN HCL 500 MG TAB PO SCH ×2 (07:47→17:11)
[2023-05-07] MEDS: DULoxetine HCL 60 MG CAP PO SCH (07:48)
[2023-05-07] MEDS: GABAPENTIN 300 MG CAP PO SCH ×3 (07:49→22:37)
[2023-05-07] MEDS: METOPROLOL TARTRATE 50 MG TAB PO SCH ×2 (07:50→22:38)
[2023-05-07] MEDS: TAMSULOSIN HCL 0.4 MG CAP PO SCH (07:50)
--- NOTE | 2023-05-07 08:20 | Surgery Progress Note ---
Date of Service May 07, 2023 Assessment & Plan (1) History of colon resection: Plan: Doing well Discharge planning. He can be discharged anytime from my standpoint I am away for the next several days but my partners and physician assistants are available with any questions or concerns Admission and Anticipated Discharge Date Admission Date: April 25, 2023 Subjective Patient seen. He continues to do well. He is eating and his stoma is functioning. He has no complaints Physical Exam Physical Exam: Alert. No acute distress Stoma looks good and functioning well Incision is clean and dry no sign of infection I remove the Lei today Results & Data Vital Signs (Past 12 Hours) Vital Signs Temp Pulse Resp BP Pulse Ox O2 Del Method 05/07/23 07:29 36.4 C L 78 16 171/93 H 90 Room Air PG Care Time/CCT Total # of Minutes Spent Total Time Spent with Patient: Total time spent is greater than 50% in coordination of care (as documented) at patient's floor/unit and/or counseling patient: Coding Level of Care Code 01441 Post Operative Follow-Up Diagnoses History of colon resection Z90.49
[2023-05-07] MEDS: INSULIN ASPART PER UNIT CHARGE SC SCH ×4 (08:27→22:39)
[2023-05-07] MEDS: PANTOprazole 40 MG in SYRINGE 0 ML IV SCH ×2 (09:12→22:38)
[2023-05-07] MEDS: TAPENTADOL HCL 50 MG TAB PO PRN (10:47)
[2023-05-07] MEDS: DAPTOmycin 750 MG in SYRINGE 0 ML IV SCH (17:11)
[2023-05-08] MEDS: CHECK fentaNYL PATCH PLACEMENT SCH ×3 (02:08→16:36)
[2023-05-08] MEDS: HYDROmorphone INJ 0.5 MG/0.5 ML SYR IV PRN ×2 (05:53→11:50)
--- NOTE | 2023-05-08 08:10 | Surgery Progress Note ---
Date of Service May 08, 2023 Assessment & Plan (1) History of colon resection: Plan: Patient continues to recover well tolerating low fiber. + ostomy functioning abdominal pain improving each day stable for discharge to home from our standpoint, complete course of abx per ID recommendations f/u in clinic with dr. rocha in 1-2 weeks for staple removal and check up (2) Diverticulitis of colon with perforation: Admission and Anticipated Discharge Date Admission Date: April 25, 2023 Supervising Physician Co-Signing Physician Notes Patient seen and examined for Dr. Rocha, agree with above. Status post Fernandez's procedure, doing well. Ostomy functioning, incision without infection, tolerating diet. Abdomen soft, nondistended, ostomy healthy. Awaiting discharge to home, will touch base with medicine. Subjective Patient reports feeling well. Tolerating a diet, no nausea/vomiting. Pain is easing up overall, mostly feels it when he is up and moving around. Ostomy is functioning well. Physical Exam Physical Exam: awake/alert, no distress Gastrointestinal (Abdomen): Inspection/Auscultation: + abdominal surgical incision (c/d/i, some scant drainage to inferior pole. ); abdomen not distended Percussion/Palpation: abdomen soft; abdomen nontender ostomy funcitoning well. midline incision w/ ruben Results & Data Vital Signs (Past 12 Hours) Vital Signs Temp Pulse Pulse Resp BP BP Pulse Ox 05/08/23 07:55 36.4 C L 76 18 128/86 95 05/07/23 22:34 89 121/81 05/07/23 21:15 36.6 C 88 18 131/81 96 O2 Del Method O2 Flow Rate 05/08/23 07:55 Nasal Cannula 2 05/07/23 22:34 05/07/23 21:15 Room Air PG Care Time/CCT Total # of Minutes Spent Total Time Spent with Patient: Total time spent is greater than 50% in coordination of care (as documented) at patient's floor/unit and/or counseling patient: Coding Level of Care Code 05217 Post Operative Follow-Up Diagnoses History of colon resection Z90.49 Diverticulitis of colon with perforation K57.20
[2023-05-08] MEDS: INSULIN ASPART PER UNIT CHARGE SC SCH ×3 (08:45→17:30)
[2023-05-08] MEDS: METOPROLOL TARTRATE 50 MG TAB PO SCH (08:46)
[2023-05-08] MEDS: DULoxetine HCL 60 MG CAP PO SCH (08:46)
[2023-05-08] MEDS: GABAPENTIN 300 MG CAP PO SCH ×2 (08:46→14:19)
[2023-05-08] MEDS: TAMSULOSIN HCL 0.4 MG CAP PO SCH (08:46)
[2023-05-08] MEDS: ENOXAPARIN INJ 40 MG/0.4 ML SYR SQ SCH (08:47)
[2023-05-08] MEDS: metFORMIN HCL 500 MG TAB PO SCH ×2 (08:47→16:37)
[2023-05-08] MEDS: NICOTINE 21 MG/24 HR TDSY TD SCH (08:49)
[2023-05-08] MEDS: UMECLIDINIUM/VILANTEROL 62.5/25MCG 7 PUFFS/INHALER INH SCH (08:49)
[2023-05-08] MEDS: SODIUM CHLORIDE 0.9% 1000ML 1,000 ML IV SCH (08:49)
[2023-05-08] MEDS: FLUTICASONE FUROATE 100MCG 14 PUFFS/INHALER INH SCH (08:49)
[2023-05-08] MEDS: FAMOTIDINE 20 MG in SYRINGE 3 ML IV SCH (09:09)
[2023-05-08] MEDS: CASPOFUNGIN 50 MG in SODIUM CHLORIDE 0.9% 250 ML IV SCH (09:09)
[2023-05-08] MEDS: PANTOprazole 40 MG in SYRINGE 0 ML IV SCH (09:09)
[2023-05-08] MEDS: fentaNYL 50 MCG/HR TDSY TD SCH (16:36)
--- NOTE | 2023-05-23 19:43 | Discharge Summary ---
Date of Service April Admission HPI Per Admitting Provider Meet is a 57 year old male with a PMH significant for coronary artery disease, hypertension, hyperlipidemia, HFpEF, COPD, chronic hypoxia on intermittent 2 L as needed, continued tobacco abuse, pulmonary hypertension, SAUL,n chronic pain syndrome and diabetes who presented to the [facility] ED on 04/25/23 with a chief complaint of abd pain. In the ED the patient was noted to be tachycardic with a HR of 113 but otherwise stable. Labs were significant for a leukocytosis of 16 with left shift of 11.95. Ct of the abd/pelvis w/IV con was read as "1. Acute sigmoid diverticulitis with associated microperforation and a few small developing pericolonic abscesses measuring up to 17 mm. These are not amenable to percutaneous drainage at this time. 2. Thickening of the adjacent distal ileum within the midabdomen is likely reactive to the acute sigmoid diverticulitis. 3. Bladder wall thickening. This could be due to chronic outlet obstruction and underdistention. Recommend correlation with urinalysis. 4. Cholecystectomy and appendectomy. 5. 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 6. Additional findings as described above.". The ED staff spoke with General Surgery who will evaluate the patient and follow but have no immediate plans for surgical intervention at this time. They recommended starting IV antibiotics and IV fluids. Prior to admission the patient was given 500 mL NSS, a dose of Zosyn, 4mg IV morphine, and 4 mg IV zofran. At the time of the exam the patient was sitting in bed in no acute distress. He states that he started to develop sharp, intermittent, and generalized abdominal pain on 04/23. The pain is exacerbated with eating, his PO intake has been poor since his symptom developed. He states that he has had two episodes of watery diarrhea, one on 04/23 and one yesterday, he is still passing gas and denies bloody BM's. He denies any recent antibiotic use and denies having symptoms like these in the past. He denies fevers and chills, chest pain, increased SOB from baseline, vomiting, dysuria hematuria, LE swelling, and recent trauma. When asked, he states that he uses 2L O2 HS and as needed during the day for increased SOB. He is still smoking 1PPD but trying to cut back as he is scheduled to have surgery on his neck in late May. He is a full code and would want his to make medical decisions for him if he could not make them himself. Please refer to Dr. Schulte's attestation for any changes to the treatment plan Principal Diagnosis Diverticulitis with microperforation sepsis Discharge Exam Awake alert oriented cooperative in no distress Constitutional WD/WN, vitals as above Eyes PERRL, conjunctivae normal, anicteric sclerae ENMT external ear and nose normal, oropharynx normal Neck trachea midline, no thyromegaly Respiratory normal respiratory effort, lungs clear to auscultation Cardiovascular RRR, no murmur, no edema Gastrointestinal (Abdomen) As anticipated postop Skin no rashes, warm and dry Neurologic PERRL, EOMI, accommodation nl, no face palsy, no dysarthria Psychiatric A+Ox3, euthymic affect Discharge Data Allergies Allergy/AdvReac Type Severity Reaction Status Date / Time bee venom protein (honey bee) Allergy Severe PASSES OUT Verified 05/22/23 09:47 naproxen Allergy Intermediate SEVERE RASH Verified 05/22/23 09:47 tramadol AdvReac Intermediate GI SYMPTOMS Verified 05/22/23 09:47 Consultations 04/25/23 13:38 Consult General Surgery Routine 04/25/23 13:39 ED Decision to Admit Stat 05/03/23 10:43 Consult Infectious Diseases Routine Procedures Performed Operation Date: 04/29/23 09:55 Actual Procedures p Exploratory Laparotomy, Sigmoid colectomywith Diverting Colostomy, Takedown enterocolonic fistula with primary Repair(Not Applicable) - Bernard Rocha, DO Ordered Studies 04/25/23 10:33 CT Abd and Pelvis [CT abd pelvis IV con only] Stat 04/28/23 13:19 CT abdomen wo con Urgent 04/29/23 09:12 CT pelvis wo con Urgent Hospital Course (1) Diverticulitis of colon with perforation: presented with severe sigmoid diverticulitis with microperforation, peritoneal soiling & small diverticular abscesses. OR 04/29 --> s/p Exploratory Laparotomy, copious purulent peritoneal fluid , Sigmoid colectomy with Diverting Colostomy, Takedown entero-colonic fistula with primary Repair - Bernard Rocha, DO Cultures concerning for VRE and fungus [place] , infectious disease consult: Recommendations: -For coverage of gram negatives, anaerobes: Pip-tazo concluded on 05/05; has completed 7 days post-op which should be sufficient if source control was obtained. -For coverage of [place]: Can continue caspofungin 50 mg daily to complete a 7 day course through 05/09. If discharging, can transition to fluconazole 400 mg PO daily to complete the course. -For coverage of VRE: Increased daptomycin to 750 mg daily. Ordered CK today for monitoring. Continue to complete 7 day course through 05/10. If discharging, can transition to linezolid 600 mg PO q12h to complete the course. tolerating advancing diet and ostomy with good function INSPECTOR CRYSTAL discontinued 05/[address] in [address] of oxycodone to try to reduce any GI effects. Good pain control so far we will have backup Dilaudid parenteral if needed for pain control patient on chronic pain medication therapy at home including extended release morphine and oxycodone typically taking about 120 morphine equivalents once a day, subsequently current fentanyl patches 25 this delivers about 60 a day pt feels he wishes to continue fentanyl and that his current chronic pain is not as well controlled agree to increase fentanyl and they have this as his chronic opioid. (2) Hypertension: chronic a controlled with metoprolol increased dose 05/05/23 , added hydralazine prn (3) COPD (chronic obstructive pulmonary disease): chronic and Stable. No exacerbation at this time. Pulmonary toilet. (4) DM II (diabetes mellitus, type II), controlled: BSGs controlled. resume metformin. SSI novolog. (5) Chronic pain syndrome: Fentanyl patch 50mcg q3d being used in place of morphine BID. try Nucynta with breakthrough Dilaudid for pain control chronic pain - l-spine, c-spine. (6) Tobacco abuse: Nicoderm patch 21mg/day. (7) SAUL (obstructive sleep apnea): no longer using CPAP at home. (8) DVT prophylaxis: lovenox 40mg daily Total Time Total Time Spent Total Time Spent (In Minutes): 42 Discharge Plan Discharge Items Patient Disposition: Home - Home Health Services Reason For Visit: ACUTE SIGMOID DIVERTICULITIS Discharge Diagnosis: acute sigmoid diverticulitis sigmoid resection and creation of colostomy Health Concerns: Healing and restorative care Goals: Good nutrition and vitamins for efficient healing Activity: Per Instructions section Lifting: No more than 10 pounds Bathing Comment: may shower; no soaking in tubs/pools x 2 weeks Exercise/Sports: Wait until after follow-up appointment Driving/Machine Use: no driving while taking narcotics for pain Non-emergency contact: Primary Care Provider and Surgeon Call non-emergency contact if: you have any medication questions, your pain is not controlled, you have a fever, your temperature is above 101.5, your wound has increased redness, your wound has increased drainage and your wound pain has increased Follow-up/Referrals: Mansoor Zhao MD [Primary Care Provider] - 05/22/23 9:50 am Bernard Rocha DO [Surgeon] - 05/20/23 9:00 am () Diet: Low Fiber Addtl Attending Provider Instructions: Please care for ostomy as you have been educated by the wound nurse prior to discharge You may keep a dry dressing over the site where you surgical drain was removed, change daily with dry gauze and medipore tape until healed Pending Studies at Discharge: Yes Studies:: surgical pathology Stand-Alone Forms: My [facility] Visys, Smoking Cessation Medications and DC Order Prescriptions: Continued metformin 500 mg tablet extended release 24hr 1,000 mg PO DAILY Qty: 180 3RF Patient Comments: PT STATES HAS NOT FILLED MEDICATION FOR A WHILE Rx Instructions: take with breakfast. duloxetine 60 mg capsule,delayed release(DR/EC) 60 mg PO QAM Qty: 90 3RF Trelegy Ellipta 100-62.5-25 mcg blister with device 1 inh inhalation DAILY Qty: 60 6RF albuterol sulfate 90 mcg/actuation HFA aerosol inhaler 2 puff INHALATION Q4H PRN (Reason: Wheezing) Qty: 8.5 11RF gabapentin 300 mg capsule 900 mg PO TID Qty: 270 5RF pantoprazole [Protonix] 40 mg tablet,delayed release (DR/EC) 40 mg PO BID Qty: 60 2RF atorvastatin 80 mg tablet 80 mg PO HS Qty: 90 3RF famotidine 40 mg tablet 40 mg PO BID Qty: 60 5RF morphine 15 mg tablet extended release 15 mg PO Q12H Qty: 60 0RF oxycodone 15 mg tablet 15 mg PO Q6H Qty: 90 0RF docusate sodium 100 mg capsule 100 mg PO BID PRN (Reason: Constipation) ipratropium-albuterol 0.5 mg-3 mg(2.5 mg base)/3 mL solution for nebulization 3 ml Inhalation QID PRN (Reason: Shortness Of Breath) Qty: 180 3RF (DME) OneTouch Verio test strips Strip See Rx Instructions .ROUTE .MEDSUPPLY Qty: 100 1RF Rx Instructions: As directed - check sugars 1x each day. (DME) lancets [OneTouch Delica Lancets] 33 gauge misc See Rx Instructions .ROUTE .MEDSUPPLY Qty: 100 1RF Rx Instructions: As directed - check blood sugars 1x daily. epinephrine [EpiPen] 0.3 mg/0.3 mL auto-injector 0.3 mg IM DIRECTED PRN (Reason: Allergic Reaction) metoprolol tartrate 50 mg tablet 25 mg PO BID Qty: 180 3RF dicyclomine 20 mg tablet 20 mg PO BID PRN (Reason: abdominal discomfort) Qty: 20 0RF No Action tamsulosin 0.4 mg capsule 0.4 mg PO QAM Qty: 90 3RF Discharge Orders: Discharge Order (Routine); Ordered 05/08/23 Ordered By: Martin Martines/Other Patient Handouts: Colostomy: Managing Your Nutrition Admission Data Admit Date/Time: 04/25/23 13:49 Attending Provider: Martin Rebollar Admit Provider: Nathaniel Schulte Primary Care Provider: Mansoor Zhao Other Providers: [facility] ; Bernard Rocha ; Nathaniel Schulte ; Livier Covarrubias ; Braeden Garcia ; Naya Agrawal ; Crescencio Peres ; Trisha Jordan ; Malgorzata Leo ; Kaila Felipe ; Alisson Bird ; Charmaine Hogue Other Interventions: Discharge Summary Assessment (RN) Last Done: 05/08/23 16:55 Coding Level of Care Code 25896 INP/OBS DISCH >30 MIN Diagnoses Diverticulitis of colon with perforation K57.20 Hypertension I10 COPD (chronic obstructive pulmonary disease) J44.9 DM II (diabetes mellitus, type II), controlled E11.9 Chronic pain syndrome G89.4 Tobacco abuse Z72.0 SAUL (obstructive sleep apnea) G47.33 DVT prophylaxis Z29.9 Time Spent (min) 42
--- NOTE | 2023-05-24 07:12 | Coding Query ---
SEPSIS To promote full compliance with coding requirements relating to patient care, physician participation is requested in all cases of certified professional coder uncertainty. Please assist us with the question(s) below: In responding to this query, please exercise your independent professional judgement. The fact that a question is asked does not imply that any particular answer is desired or expected. We appreciate your clarification on this issue. The medical record reflects the following clinical findings: Pt admitted with lg intestine divertiulitis. Operative procedure- sigmoid bypass surgery. * The Discharge Summary documented Sepsis. Seeking to determine if Sepsis was treated during this Inpatient stay. Please check below if appropriate. Thank you. TATIANA Alejandre CCS ____ (x )Bacteremia (Nonspecific laboratory finding of bacteria in the blood) Specify Organism (x ) Present on Admission Rx Doxy ( ) Not present on admission ( ) Unable to clinically determine ( ) Septicemia (Systemic disease associated with the presence of pathogenic microorganisms in the blood): Specify Organism ( ) Present on Admission ( ) Not present on admission ( ) Unable to clinically determine ( ) Sepsis Specify Organism Specify Associated Condition/Diagnosis ( ) Present on Admission ( ) Not present on admission ( ) Unable to clinically determine ( ) Severe Sepsis (Sepsis associated with acute organ dysfunction) Specify Organism Specify Associated Condition/Diagnosis ( ) Present on Admission ( ) Not present on admission ( ) Unable to clinically determine ( ) Septic Shock (Severe sepsis with acute circulatory failure, unexplained by other causes) ( ) Present on Admission ( ) Not present on admission ( ) Unable to clinically determine ( ) Other, patient has: MTDD
== END 2023-05-08 18:51 | disposition home health service (06) | DRG 330 ==
LOC: ED 10:15 → SUATTDRO 13:48 → EDINP 13:48 → SUATTDRO 13:49 → EDINP 17:52 → 2N 04-26 01:04 → 3W 05-06 18:53

== ENCOUNTER 2023-08-08 10:57 | Inpatient (IN) ==
--- NOTE | 2023-07-30 14:29 | Anesthesiology Consultation ---
Date of Service July 30, 2023 Assessment & Plan (1) Encounter for pre-operative examination: Chart Review Chart Review: Acceptable Risk for Surgery (pending anesthesia evaluation DOS ) and Patient NOT seen in Pre Admission Testing - Check BSG AM DOS -Infectious Disease screening: Per PAT nursing assessment on 07/30/23. No known infectious disease contacts in past 10 days or current infectious disease symptoms. No recent travel outside the country. Exploratory laparotomy, colostomy 04/29/2023 = done under [facility] with grade 2 view with glidescope #3. ETT #7.5. Last seen by pulmonology 03/12/2023 = DOEmultifactorialrelated to deconditioning, CAD and secondary pulmonary hypertension. COPDPFTs reviewed with patientnonspecific spirometry which is stable compared to prior. Patient does seem to benefit from inhalers. Continue Trelegy. Complete smoking cessation advised. Secondary pulmonary hypertensionsecondary to lung disease a nd diastolic dysfunction. Continue supplemental oxygen to maintain stats above 89% as this is medically necessary. Hypertensionelevated BP on exam today. Recommend patient discuss with PCP. Abnormal CT scanhas tiny subcentimeter pulmonary nodules in multiple idiopathic cyst noted bilaterally. Mild emphysema seen as well. 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 Follow up one year History Surgery Operation Date: 08/08/23 12:00 Proposed Procedures p Laparoscopic Reversal Colostomy Possible Open - Bernard Rocha, Height/Weight Height: 5 ft 8 in Weight: 77.111 kg Allergies Allergy/AdvReac Type Severity Reaction Status Date / Time bee venom protein (honey bee) Allergy Severe PASSES OUT Verified 07/30/23 13:11 naproxen Allergy Intermediate SEVERE RASH Verified 07/30/23 13:11 tramadol AdvReac Intermediate GI SYMPTOMS Verified 07/30/23 13:11 Medications Home Medications Medication Instructions Recorded Confirmed Last Taken docusate sodium 100 mg capsule 100 mg PO BID PRN Constipation 07/02/19 07/30/23 01/11/20 blood sugar diagnostic (SomotoTouch #100 ea 02/15/21 07/17/23 Unknown Verio test strips) lancets 33 gauge (OneTouch Delica #100 ea 02/15/21 07/17/23 Unknown Lancets) epinephrine 0.3 mg/0.3 mL 0.3 mg IM DIRECTED PRN Allergic 02/21/22 07/30/23 Unknown injection, auto-injector (EpiPen) Reaction ipratropium 0.5 mg-albuterol 3 mg 3 ml inhalation QID PRN Shortness 10/22/22 07/30/23 Unknown (2.5 mg base)/3 mL nebulization Of Breath #180 mL soln dicyclomine 20 mg tablet 20 mg PO BID PRN abdominal 11/06/22 07/30/23 01/15/23 01:00 discomfort #20 tabs albuterol sulfate 90 mcg/actuation 2 puff inhalation Q4H PRN Wheezing 11/27/22 07/30/23 01/14/23 16:00 aerosol inhaler #8.5 grams atorvastatin 80 mg tablet 80 mg PO HS #90 tabs 01/22/23 07/30/23 04/24/23 duloxetine 60 mg capsule,delayed 60 mg PO QAM #90 caps 07/08/23 07/30/23 Unknown release morphine 15 mg tablet,extended 15 mg PO Q12H #60 tabs 07/15/23 07/30/23 Unknown release Oxygen Home #1 ea 07/17/23 07/17/23 Unknown gabapentin 300 mg capsule 900 mg PO TID #270 caps 07/29/23 07/30/23 Unknown oxycodone 15 mg tablet 15 mg PO Q6H #90 tabs 07/29/23 07/30/23 Unknown famotidine 40 mg tablet 40 mg PO BID PRN Indigestion 07/30/23 07/30/23 Unknown fluticasone fur. 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 Anemia H&H WNL with 07/17/23 labs Back pain CAD (coronary artery disease) No angiographic evidence of CAD on 07/2020 cath Chronic narcotic use Chronic obstructive pulmonary disease WEARS 2L HS (WILL WEAR DURING DAY PRN SOB) Chronic pain syndrome Diabetes mellitus type 2, uncontrolled takes metformin only when "my bsg is high" Hgb A1C 6.4 on 05/22/23 Diastolic CHF, acute on chronic Grade I DD with normal EF of 65-70% on 10/29/22 ECHO Diverticulitis with colon perforation 04/25/23- admitted to [facility] - initially treated with IV abxs and fluids- s/p sigmoid colectomy with diverting colostomy 04/29/23 Excessive daytime sleepiness GERD (gastroesophageal reflux disease) Hyperlipemia Hypertension Insomnia Lumbar radiculopathy NSTEMI (non-ST elevated myocardial infarction) (~2014) NSTEMI 2019- cardiac cath showed no CAD "WAS GIVEN TOO MUCH EPINEPHRINE" On home oxygen therapy WEARS O2 2L AT HS + PRN DURING DAY SOB SAUL (obstructive sleep apnea) WEARS O2 2L AT HS Polyneuropathy Pulmonary hypertension Normal RVSP on 10/2022 ECHO Mild pulm HTN on 2019 [facility]- PA pressure: 37/19 with a mean of 25 mmHg. Sensorineural hearing loss (SNHL) of both ears Stomach ulcer hx early 2022. no current issues. Syncope hx ~2020 r/t covid infection. no current issues Urinary frequency AT HS (REASON FOR FLOMAX) Past Family History Family History Father Heart disease age 37 - "heart attack" Hypertension Brother Coronary heart disease Hypertension Aunt Breast cancer Mother Hypertension Thyroid disease Other Allergies Cancer Diabetes No family history of adverse response to anesthesia No significant family history Denies family history of Tuberculosis Ovarian cancer Prostate cancer Emphysema, unspecified Colorectal cancer Lung disease Asthma Past Surgical History Surgical History H/O cardiac catheterization ~2019 at [facility] -- NO STENTS>FOLLOWS WITH DR. SALDIVAR H/O exploratory laparotomy with colostomy creation H/O vasectomy + REVERSAL History of cholecystectomy History of colon resection (04/29/23) Exploratory Laparotomy, Sigmoid colectomy with Diverting Colostomy, Takedown enterocolonic fistula with primary Repair(Not Applicable) - Bernard Rocha, DO History of colonoscopy History of esophagogastroduodenoscopy (EGD) History of tonsillectomy History of tooth extraction Hx of appendectomy Hx of arthroscopic knee surgery RT/LEFT S/P appy S/P cervical spinal fusion C2 - C6 (pt thinks) -> ROM wnl. numbness in the right hand/fingers at this time. Social History Smoking Status: Current every day smoker tobacco type: cigarettes Smoking cigarettes per day: 20 CIG DAILY>ADVISED Do You Dip or Chew Tobacco: No Hx Alcohol Use: No Alcohol type: beer and hard liquor alcohol intake frequency: a few times a month Hx Substance Use: No substance use type: does not use Lab Results Anesthesia Preop Results Results Anesthesia Widget: WBC 11.74 K/ul (4.8-10.8) H 07/17/23 Hgb 14.5 g/dl (14.0-18.0) 07/17/23 Hct 45.1 % (42.0-52.0) 07/17/23 Plt 428 K/uL (130-400) H 07/17/23 Na 142 mmol/L (136-145) 07/17/23 K 4.7 mmol/L (3.5-5.1) 07/17/23 Cl 106 mmol/L (98-107) 07/17/23 CO2 28 mmol/L (21-32) 07/17/23 BUN 17 mg/dl (6-23) 07/17/23 Creat 1.00 mg/dl (0.6-1.4) 07/17/23 Glucose Level 102 mg/dl (70-99(Fasting)) H 07/17/23 Testing Laboratory Results Leukocytosis- intermittent/chronic/fluctuating since at least 2017- stable/improved from 04/2023- PCP aware per 06/19/23 note- likely related to chronic underlying medical problems- currently monitoring every 6-12 months Electrocardiogram Date: 04/25/23 Findings: + NSR @ (94bpm) Normal EKG per cardio Echocardiogram Date: 10/29/22 EF: 65-70% LV Function: normal RWMA: + none Other Findings: + LVH (moderate/concentric ) and + diastolic dysfunction (Type I ) Sclerotic AV without significant stenosis Normal estimated RVSP. No significant change compared to prior study 01/23/22. Cardiac Catheterization Date: 08/12/20 Impression: 1. No angiographic evidence of significant CAD. 2. Elevated left and right-sided filling pressures. 3. Mild pulmonary hypertension in the setting of mildly elevated left-sided filling pressure. 4. No significant left to right shunt. 5. Normal cardiac output. 6. No significant aortic stenosis. Pulmonary Function Test Date: 02/18/23 Nonspecific spirometric pattern without a significant postbronchodilator response. Lung volumes unremarkable. Diffusion capacity suggest mild reduction. FEV1 and FVC stable dating back to 722. Clinical correlation is required. Other Testing Chest CT 02/18/23= Previously noted opacities in the right lung have resolved compatible with improving infectious/inflammatory process. Stable pulmonary nodules
[~2023-08-08 10:57] MED LIST changes: -ALBUAER INH; -ASPI325T39 PO; -ATOR-26 PO; -DOCU-94 PO; -EPP3/2 IM; -FLUT1INH INH; -GABA-1219 PO; +HEPARIN SOD 5,000 UNIT/0.5 ML VIAL SQ SCH; +LACTATED RINGER'S 1,000 ML IV SCH; -LOSA100T65 PO; -METO25TA56 PO; -MORP1TAB11 PO; -OMEP20CA9 PO; -OXY/15 PO; -SPRIN/30 INH; -VTMB12100 PO; +ceFAZolin 2000MG 2,000 MG/15 ML SYR IV SCH
[2023-08-08] MEDS ORDERED: DEXAMETHASONE SOD INJ 4 MG/ML VIAL ONE (12:05)
[2023-08-08] MEDS ORDERED: PROPOFOL IV EMULSION 10 MG/ML 20 ML VIAL IV ONE ×3 (12:05→13:23)
[2023-08-08] MEDS ORDERED: ONDANSETRON INJ 2 MG/ML 2 ML VIAL ONE (12:05)
[2023-08-08] MEDS ORDERED: LIDOCAINE 2% 2 ML VIAL/AMP(20MG/ML) INFIL ONE ×2 (12:05→12:06)
[2023-08-08] MEDS ORDERED: fentaNYL citrate PF 100 MCG/2 ML VIAL ONE ×2 (12:06→14:37)
[2023-08-08] MEDS ORDERED: MIDAZOLAM HCL 1 MG/ML 2ML VIAL ONE (12:06)
[2023-08-08] MEDS ORDERED: ROCURONIUM BROMIDE 10 MG/ML 5 ML VIAL IV ONE ×11 (12:07→16:02)
--- NOTE | 2023-08-08 12:49 | History & Physical Bridge Note ---
Date of Service August 08, 2023 History & Physical Bridge Note I have examined the patient, reviewed the History & Physical and in the interval since the performance of the History & Physical I have noted the following changes of clinical significance: no changes noted
[2023-08-08] MEDS ORDERED: ePHEDrine sulfate 50 MG/ML AMP IV PRN (13:17)
[2023-08-08] MEDS ORDERED: ATROPINE SULFATE 0.1 MG/ML 10ML SYR IV PRN (13:17)
[2023-08-08] MEDS ORDERED: PROMETHAZINE HCL 12.5 MG in SODIUM CHLORIDE 0.9% 50 ML IV PRN (13:17)
[2023-08-08] MEDS ORDERED: BUPIVACAINE/EPINEPHRINE 0.5% MPF 1:200,000 30 ML VIAL ONE (13:36)
[2023-08-08] MEDS ORDERED: SUGAMMADEX SODIUM 200 MG/2 ML VIAL IV ONE (14:32)
[2023-08-08] MEDS ORDERED: METOPROLOL TARTRATE 1 MG/ML VIAL IV ONE (14:46)
[2023-08-08] MEDS ORDERED: hydrALAZINE HCL 20 MG/ML VIAL ONE (14:48)
[2023-08-08] MEDS ORDERED: HYDROmorphone INJ 2 MG/ML SYR/VIAL ONE (15:23)
--- NOTE | 2023-08-08 17:11 | Operative Report ---
[facility] Post Operative Report Pre & Post Diagnosis Operation Date: 08/08/23 12:45 Pre-Op Diagnosis: History of colostomy Post-Op Diagnosis: History of colostomy; extensive adhesions I identified the patient and participated in the time-out.: Yes Procedure Operation Date: 08/08/23 12:45 Actual Procedures p Laparoscopic Reversal Colostomy, extensive enterolysis - Bernard Rocha DO Surgeon Bernard Rocha DO Curriculum Development Specialist gt Quiroz Estimated Blood Loss 50 Findings Consistent with Post-Op Diagnosis Specimens prior stoma Description of Procedure After informed consent was obtained the patient was taken to the operating room placed in supine position. After successful intubation a Unger catheter was placed and the patient was placed in the low lithotomy position. The arms were both tucked. The abdomen was shaved. I closed the prior stoma site with 2-0 silk. The abdomen was then sterilely prepped and draped in usual fashion including the perineum. I began with a supraumbilical incision with 11 blade scalpel. This was carried down through the soft tissue using cautery. Anterior fascia was opened and 2 #0 Vicryl stay sutures were placed. Blunt finger penetration was performed as well as a finger sweep. A 12 mm Arango trocar was placed and the abdomen was insufflated to 18 mmHg. Laparoscope was inserted and the abdomen examined 360 degrees. There were extensive adhesions throughout the entire lower abdomen including omentum small bowel and large bowel. I was able to place a right lower quadrant 5 mm port and a right mid abdominal 5 mm port. I spent probably at least an hour taking down adhesions. This involved blunt dissection and sharp scissor lysis and small amounts of harmonic. It was rather tedious. Eventually I was able to take down all of the adhesions. There was no evidence of any enterotomies. I was able to find the rectal stump with the Prolene sutures and dissected this out as well. Next we desufflated the abdomen. I made an elliptical incision around the closed left lower quadrant stoma site. Traction countertraction cautery were used to come around the stoma in 360 degrees. Eventually I was able to separate it from the fascia completely and deliver it onto the abdomen. There was plenty of slack. I used a bowel clamp and then divided the inflamed portion of the stoma and mesentery. I then used sizers to estimate the size of the lumen to be 28 mm. 2-0 silk was used to hand so a pursestring. The anvil of the 28 mm stapler was placed into the colon and the pursestring secured. This was placed back into the abdominal cavity. At this point we changed our gloves. I closed the fascia of the stoma site using 0 PDS in running fashion. We then re-insufflated the abdomen. We advanced first a sizer into the rectal stump followed by the handle of the EEA stapler. The spike was deployed anterior to her prior staple line on the rectal stump. The handle was secured to the anvil and they were tightened down and fired creating a functional end-to-end anastomosis. Both donuts were in intact. We inflated the anastomosis under water using a rigid proctoscope. There was no evidence of any anastomotic leak. There was adequate hemostasis. I thoroughly irrigated the lower half of the abdomen. I did reevaluate the small and large bowel and again there was no evidence of visible enterotomies. I placed a 10 flat Brett-Olmedo drain in the pelvis and brought out through one of the port sites and secured to the skin using 0 Vicryl. All the wounds were thoroughly irrigated. The stoma site was closed over quarter inch Lei drain with skin ruben. The other incisions were also closed using skin ruben. Silver dressing gauze and tape were placed. The patient was awakened extubated transferred to recovery in stable condition. My nurse practitioner was present for the entire case was instrumental in assisting throughout the entire pr ocedure including running the camera assisting with the anastomosis wound closure and dressing placement. I attest to the content of the Intraoperative Record and any orders documented therein. Any exceptions are noted below.
[2023-08-08] MEDS: HYDROmorphone INJ 2 MG/ML SYR/VIAL IV PRN ×4 (17:12→17:41)
--- NOTE | 2023-08-08 18:15 | Anesthesiology Progress Note ---
Date of Service August 08, 2023 Anesthesia Post Procedure Vital Signs Vital Signs: Temp Pulse Pulse Resp BP Pulse Ox O2 Del Method 08/08/23 17:45 83 21 144/80 H 94 Nasal Cannula 08/08/23 17:35 86 21 141/81 H 94 Nasal Cannula 08/08/23 17:25 86 19 137/85 96 Oxymask 08/08/23 17:15 87 23 136/79 95 Oxymask 08/08/23 17:05 90 21 134/83 96 Oxymask 08/08/23 16:59 96.8 F L 92 H 18 129/73 94 Oxymask 08/08/23 11:14 Room Air, Nasal Cannula 08/08/23 11:14 98.2 F 79 18 168/90 H 94 Room Air O2 Flow Rate 08/08/23 17:45 4 08/08/23 17:35 4 08/08/23 17:25 12 08/08/23 17:15 12 08/08/23 17:05 12 08/08/23 16:59 12 08/08/23 11:14 08/08/23 11:14 Pain Intensity Abdomen: Pain Intensity: 10 Transfer of Care Handoff Completed per policy Notes Mental Status: alert / awake / arousable and participated in evaluation Patient Amnestic to Procedure: Yes Nausea / Vomiting: adequately controlled Pain: adequately controlled, improving with treatment and see Notes below Airway Patency, RR, SpO2: stable & adequate BP & HR: stable & adequate Hydration State: stable & adequate Anesthetic Complications: no major complications apparent and Pt Satisfied with anesthetic care Notes: patient given 200 mcg fentanyl and 4 mg total dilaudid, patient resting comfortable in between assessments, on 4L NC to maintain oxygen saturations, however rating pain 8-9/10 when awakened. Due to narcotic side effects and patient seemingly able to rest without discomfort will hold off on additional opioids at this time.
[2023-08-08] MEDS ORDERED: GLUCOSE 40% GEL 15 GM TUBE PO PRN (19:05)
[2023-08-08] MEDS ORDERED: CARBOHYDRATES FOR HYPOGLYCEMIA PO PRN (19:05)
[2023-08-08] MEDS ORDERED: ONDANSETRON INJ 2 MG/ML 2 ML VIAL IV PRN (19:05)
[2023-08-08] MEDS ORDERED: ALBUTEROL HFA 8 GM INHALER INH PRN (19:05)
[2023-08-08] MEDS ORDERED: HYDROmorphone INJ 0.5 MG/0.5 ML SYR IV PRN (19:05)
[2023-08-08] MEDS ORDERED: GLUCOSE 10 TAB/TUBE PO PRN (19:05)
[2023-08-08] MEDS ORDERED: METOPROLOL TARTRATE 25 MG TAB PO PRN (19:05)
[2023-08-08] MEDS ORDERED: ACETAMINOPHEN 325 MG TAB PO PRN (19:05)
[2023-08-08] MEDS ORDERED: oxyCODONE/ACETAMINOPHEN 5mg/325mg TAB PO PRN (19:05)
[2023-08-08] MEDS ORDERED: GLUCAGON FOR INJ 1 MG VIAL SQ PRN (19:05)
[2023-08-08] MEDS ORDERED: DEXTROSE 50% 50 ML SYRINGE IV PRN (19:05)
[2023-08-08] MEDS ORDERED: PHARMACY GLYCEMIC MGMT CONSULT PRN (19:05)
[2023-08-08] MEDS: ACETAMINOPHEN 1,000 MG/100 ML VIAL IV SCH (20:37)
[2023-08-08] MEDS: LACTATED RINGER'S 1,000 ML IV SCH (20:37)
[2023-08-08] MEDS ORDERED: INSULIN ASPART PER UNIT CHARGE SC SCH (21:00)
[2023-08-08] MEDS: INSULIN ASPART PER UNIT CHARGE SC SCH (21:00)
[2023-08-08] MEDS: metroNIDAZOLE 500 MG/100 ML BAG IV SCH (21:24)
[2023-08-08] MEDS: CIPROFLOXACIN / D5W 400 MG/200 ML BAG IV SCH (23:03)
[2023-08-09] MEDS: INSULIN ASPART PER UNIT CHARGE SC SCH ×5 (00:10→23:43)
[2023-08-09] MEDS: HYDROmorphone INJ 0.5 MG/0.5 ML SYR IV PRN ×3 (01:20→10:49)
[2023-08-09] MEDS: ACETAMINOPHEN 1,000 MG/100 ML VIAL IV SCH ×3 (03:32→20:12)
[2023-08-09] MEDS: metroNIDAZOLE 500 MG/100 ML BAG IV SCH ×3 (04:11→20:12)
[2023-08-09 07:52] LABS: Basophils # (auto) 0.05 K/uL (0.00-0.20); Basophils % (auto) 0.3 %; Eosinophils # (auto) 0.09 K/uL (0.00-0.50); Eosinophils % (auto) 0.6 %; Hematocrit (blood only) 43.5 % (42.0-52.0); Hemoglobin 14.4 g/dl (14.0-18.0); Immature Granulocytes # (auto) 0.08 K/uL (0.01-0.20); Immature Granulocytes % (auto) 0.5 %; Lymphocytes # (auto) 1.65 K/uL (1.20-3.40); Lymphocytes % (auto) 11.2 %; Mean Corpuscular Hemoglobin 30.4 pg (25.0-34.0); Mean Corpuscular Hgb Conc 33.1 g/dL (32.0-36.0); Mean Platelet Volume 9.6 fL (9.4-12.4); Monocytes # (auto) 1.03 K/uL (0.11-0.59); Neutrophils # (auto) 11.78 K/uL (1.40-6.50); Neutrophils % (auto) 80.4 %; Platelet Count 340 K/uL (130-400); RDW Coefficient of Variation 14.3 % (11.5-14.5); RDW Standard Deviation 48.5 fL (36.4-46.3); Red Blood Count 4.73 M/uL (4.70-6.10); White Blood Count 14.68 K/ul (4.8-10.8)
[2023-08-09 08:14] LABS: BUN Creatinine Ratio 13.1 (10-20); Calcium 8.7 mg/dl (8.6-10.3); Creatinine Clr Calc Pharmacy 124.6 ml/min; Est GFR (African American) 125.8 ml/min; Est GFR (Non-African American) 108.5 ml/min; Potassium 3.8 mmol/L (3.5-5.1)
[2023-08-09] MEDS: FLUTICASONE FUROATE 100MCG 14 PUFFS/INHALER INH SCH (08:49)
[2023-08-09] MEDS: UMECLIDINIUM/VILANTEROL 62.5/25MCG 7 PUFFS/INHALER INH SCH (08:49)
[2023-08-09] MEDS: CIPROFLOXACIN / D5W 400 MG/200 ML BAG IV SCH ×2 (08:51→20:12)
[2023-08-09] MEDS ORDERED: NON-FORMULARY MEDICATION (Fluticasone-Umeclidin-Vilanter [Trelegy Ellipta] 100-62.5-25 mcg INH SCH (09:00)
[2023-08-09] MEDS ORDERED: DULoxetine HCL 60 MG CAP PO SCH (09:00)
[2023-08-09] MEDS: LACTATED RINGER'S 1,000 ML IV SCH ×3 (10:29→18:29)
[2023-08-09] MEDS: ENOXAPARIN INJ 40 MG/0.4 ML SYR SQ SCH (10:34)
--- NOTE | 2023-08-09 10:40 | Hospitalist Consultation ---
Date of Consultation August 09, 2023 Assessment & Plan (1) Hypertension: Per Dr. Rocha, SBP in the 200s during surgery BP recorded as 186/92 at 0620 on 08/09 Continuous telemetry monitoring We will start metoprolol tartrate 2.5 mg IV Valsartan 80 mg p.o. daily Patient will be moved to PCU in the event he needs IV antihypertensives Agree with a.m. CBC and BMP daily, we will follow (2) Abdominal pain: S/p laparoscopic reversal of colostomy Extensive adhesions noted during the procedure Leukocytosis of 14.68 with a neutrophil predominance; may be stress-related in the post-operative settting Perioperative abx (on cipro 400mg q12h, and Flagyl 500 mg q8h), pain control, DVT PPx, and IV fluids per primary team Clinically, the patient reports his abdominal pain is currently managed by pain medications Discussed with surgery team in room, and they are considering adding BRIDGE LEVERMAN to pain regimen Continue duloxetine, hold gabapentin Keep n.p.o. for now; adjust diet as tolerated (3) History of colon resection: On 04/29/23 due to perforation of sigmoid diverticulitis (4) History of colostomy reversal: S/p laparoscopic colostomy reversal on 08/08/[address] Bernard Rocha, DO (5) DM II (diabetes mellitus, type II), controlled: Last A1c 6.4% on 05/22/2023 Glucose 136 Patient is reportedly not taking metformin 1000 mg at home daily He reports it is well controlled BSG ACHS and q6h while NPO Glycemic pharmacy consulted; patient is currently n.p.o. (6) SAUL (obstructive sleep apnea): On 2L NC at night Patient does not tolerate CPAP Continuous pulse oximetry (7) Diastolic CHF, acute on chronic: Last echo on 10/29/2022 showed LVEF 70% (8) COPD (chronic obstructive pulmonary disease): Continue Anoro Ellipta daily Plan Transfer to PCU Full code Keep n.p.o. for now DVT PPx: Thigh-high SCDs / Lovenox 40 mg QAM Thank you for allowing us to participate in the care of this patient, please reach out with any questions or concerns. Supervising Physician Co-Signing Physician Notes Patient seen and examined, chart reviewed, case discussed with Jay Urban PA-C and I agree with the assessment and plan as above except as otherwise noted Labs and images reviewed Meet is a 58-year-old male with a past medical history of SAUL, COPD, chronic hypoxic respiratory failure on 2 L baseline oxygen, type II DM, diastolic CHF and CAD, hypertension, hyperlipidemia, chronic pain, colon resection 2/2 sigmoid diverticulitis with perforation and subsequent colostomy reversal, SAUL who presented for colostomy reversal and for whom medicine is consulted postoperatively for hypertension. Patient seen at the bedside, he reports that while his medications are listed as as needed he actually takes his metoprolol twice daily scheduled every day. He does not recall ever being on amlodipine/Norvasc. Patient reports he does take valsartan daily, and review of pharmacy records shows that this was last prescribed 04/08/2023 for 90 days.. At bedside continues to have postoperative pain slightly improved after a dose of pain medication shortly before visit. Reports abdomen feels generally achy all over. Surgical dressings are in place, C/C/I and drain has sanguinous output. Mirza is in place draining light yellow urine. Heart rate 80s90s, regular. Symmetrical chest rise, no wheezing. On 4 L nasal cannula patient reports this has not been discontinued to his knowledge. Is 1 month overdue for refill? Compliant. No headache/vision change. Discussed with christal. Extensive scar tissue due to perforation and prior infection, pt with increased postoperative pain. Pt is to be ordered a BRIDGE LEVERMAN pump due to increased pain. Hypertension: Persistently >200s during surgery, and >180-190s while on the floor. Patient reports med rec is not correct; he does not take metoprolol as needed, he takes this 25 mg twice a day every day scheduled. Med list updated. 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 He reports he is not and has not been taking amlodipine. This was mentioned as prescribed previously, but last fill is 7 months ago and is no longer on med list. Patient has increased pain and had extensive lysis of adhesions and is not yet ready for diet advancement and has poor p.o. tolerance. We will place on PCU for IV antihypertensive availability and will temporarily convert his metoprolol to IV every 6. Total daily dose equivalent of 25mg PO, suspect part of his hypertension is reactive to postoperative pain. He is being switched to a BRIDGE LEVERMAN by surgical team for improved pain control. He has no symptoms of hypertensive emergency. Patient also reports he is taking valsartan 80 mg daily, however it this was last filled 4 months ago for 3 months supply. This is discontinued from the med list, but no note of this being discontinued is found on PCP review and last note notes that this was intended to be continued. Discussed w/ pharmacy & medication record audited, no mention of intentional discontinuation. As patient seems reliable and reports he is still taking this daily, will add back to medical list at 80 mg daily starting 08/10. If persistently hypertensive and able to tolerate pills can give a dose in the afternoon of 08/09. Renal function is normal, continue to trend daily. Low salt DM2 diet once able to be advanced. S/p ostomy reversal, extensive lysis of adhesions 08/08/2023: Primary management/DVT PPx/Pain control per surgical team. Patient had extensive lysis of adhesions and has postop pain, not ready for diet advancement. He has a documented history of diastolic CHF but reports he has never had acute CHF and has never needed Lasix and does not take this at home. We will continue LR 125 cc/h supplemental fluids while n.p.o., discontinue once able to advance to clears. Follow ins and outs, monitor for signs of fluid overload developing adCHF, no evidence of this at time of bedside assessment. Potassium is within normal range, sodium normal. Continue BMP daily. Type II DM: Managed mostly with diet and metformin as needed. Last A1c well controlled. Reports he needs metformin infrequently. Postoperative BSG [id number], within goal range of 110-150 Patient has not yet had diet advanced. Pharmacy glycemic consult is following. COPD: Follows with [facility]. Continue Trelegy/formulary equivalent, incentive spirometer. He has a nocturnal 2 L oxygen requirement. Continue oxygen as needed titrate to goal of 89%, do not hyper oxygenate beyond 94%. Patient is intolerant of CPAP/BiPAP previously, if he becomes hypercarbic/acidotic can trial nasal pillow but can defer for now as patient is breathing well and without evidence of COPD exacerbation. Chronic anemia: Hemoglobin 14.4, within normal range on morning labs. Normocytic. No acute change in management, can trend daily. History of NSTEMI 2019: Cardiac cath with no CAD. Patient confirms he is no longer on aspirin, no indication to have this back at this time. No chest pain Hyperlipidemia: Can resume atorvastatin when tolerating p.o. DVT prophylaxis: Lovenox started per surgical team. History of Present Illness Reason for Consultation: Hypertension Requesting Physician: Bernard Rocha DO Attending Physician: Bernard Rocha DO History of Present Illness Meet is a 58-year-old male with PMH of CAD, T2DM (controlled), HTN, HLD, GERD, diastolic CHF, SAUL, and COPD (on 2L HS at baseline). He presented for a laparoscopic reversal of colostomy on 08/08/[address] Bernard Rocha DO. Per operative report, estimated blood loss was 50 cc, and postop diagnosis showed "extensive adhesions". Prior surgical history: Sigmoid diverticulitis with colon perforation on 04/25/2023 that led to sigmoid colectomy with diverting colostomy on 04/29. Reversal on 08/08. Per review of patient vitals, patient has been stable except for hypertension that developed the morning of 08/09 (with a peak at 186/93 at 0620). Patient reports he takes metoprolol 25mg p.o. twice daily - per patient, this is scheduled, not prn as listed in med rec at present. Patient is n.p.o. post-op. Patient uses supplemental O2 at home 2L at night for SAUL; does not tolerated CPAP well. Patient reports his abdominal pain is well controlled on current pain medications. ROS: Patient endorses abdominal pain. Patient denies fever, chills, nightsweats, CP, SOB, urinary s/s (mirza in place), burning with urination, or numbness/tingling/pain in LEs. Allergies Allergy/AdvReac Type Severity Reaction Status Date / Time bee venom protein (honey bee) Allergy Severe PASSES OUT Verified 08/08/23 11:11 naproxen Allergy Intermediate SEVERE RASH Verified 08/08/23 11:11 tramadol AdvReac Intermediate GI SYMPTOMS Verified 08/08/23 11:11 Home Medications Medication Instructions Recorded Confirmed Type docusate sodium 100 mg capsule 100 mg PO BID PRN Constipation 07/02/19 08/08/23 History blood sugar diagnostic ([employer] #100 ea 02/15/21 07/17/23 Rx Verio test strips) lancets 33 gauge ([employer] #100 ea 02/15/21 07/17/23 Rx Lancets) epinephrine 0.3 mg/0.3 mL 0.3 mg IM DIRECTED PRN Allergic 02/21/22 08/08/23 History injection, auto-injector (EpiPen) Reaction ipratropium 0.5 mg-albuterol 3 mg 3 ml inhalation QID PRN Shortness 10/22/22 08/08/23 Rx (2.5 mg base)/3 mL nebulization Of Breath #180 mL soln dicyclomine 20 mg tablet 20 mg PO BID PRN abdominal 11/06/22 08/08/23 Rx discomfort #20 tabs albuterol sulfate 90 mcg/actuation 2 puff inhalation Q4H PRN Wheezing 11/27/22 08/08/23 Rx aerosol inhaler #8.5 grams atorvastatin 80 mg tablet 80 mg PO HS #90 tabs 01/22/23 08/08/23 Rx duloxetine 60 mg capsule,delayed 60 mg PO QAM #90 caps 07/08/23 08/08/23 Rx release morphine 15 mg tablet,extended 15 mg PO Q12H #60 tabs 07/15/23 08/08/23 Rx release Oxygen Home #1 ea 07/17/23 07/17/23 Rx gabapentin 300 mg capsule 900 mg PO TID #270 caps 07/29/23 08/08/23 Rx oxycodone 15 mg tablet 15 mg PO Q6H #90 tabs 07/29/23 08/08/23 Rx famotidine 40 mg tablet 40 mg PO BID PRN Indigestion 07/30/23 08/08/23 History fluticasone fur. 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 Anemia H&H WNL with 07/17/23 labs Back pain CAD (coronary artery disease) No angiographic evidence of CAD on 07/2020 cath Chronic narcotic use Chronic obstructive pulmonary disease WEARS 2L HS (WILL WEAR DURING DAY PRN SOB) Chronic pain syndrome Diabetes mellitus type 2, uncontrolled takes metformin only when "my bsg is high" Hgb A1C 6.4 on 05/22/23 Diastolic CHF, acute on chronic Grade I DD with normal EF of 65-70% on 10/29/22 ECHO Diverticulitis with colon perforation 04/25/23- admitted to [facility] - initially treated with IV abxs and fluids- s/p sigmoid colectomy with diverting colostomy 04/29/23 Excessive daytime sleepiness GERD (gastroesophageal reflux disease) Hyperlipemia Hypertension Insomnia Lumbar radiculopathy NSTEMI (non-ST elevated myocardial infarction) (~2014) NSTEMI 2019- cardiac cath showed no CAD "WAS GIVEN TOO MUCH EPINEPHRINE" On home oxygen therapy WEARS O2 2L AT HS + PRN DURING DAY SOB SAUL (obstructive sleep apnea) WEARS O2 2L AT HS Polyneuropathy Pulmonary hypertension Normal RVSP on 10/2022 ECHO Mild pulm HTN on 2019 [facility]- PA pressure: 37/19 with a mean of 25 mmHg. Sensorineural hearing loss (SNHL) of both ears Stomach ulcer hx early 2022. no current issues. Syncope hx ~2020 r/t covid infection. no current issues Urinary frequency AT HS (REASON FOR FLOMAX) Surgical History (Updated 08/09/23 @ 11:36 by Malka Huff, CORA) H/O cardiac catheterization ~2019 at [facility] [place] -- NO STENTS>FOLLOWS WITH DR. SALDIVAR H/O exploratory laparotomy with colostomy creation H/O vasectomy + REVERSAL History of cholecystectomy History of colon resection (04/29/23) Exploratory Laparotomy, Sigmoid colectomy with Diverting Colostomy, Takedown enterocolonic fistula with primary Repair(Not Applicable) - Bernard Rocha, DO History of colonoscopy History of colostomy reversal History of colostomy reversal (08/08/23) Laparoscopic Reversal Colostomy, extensive enterolysis - Bernard Rocha, DO History of esophagogastroduodenoscopy (EGD) History of tonsillectomy History of tooth extraction Hx of appendectomy Hx of arthroscopic knee surgery RT/LEFT S/P appy S/P cervical spinal fusion C2 - C6 (pt thinks) -> ROM wnl. numbness in the right hand/fingers at this time. Family History Father Heart disease age 37 - "heart attack" Hypertension Brother Coronary heart disease Hypertension Aunt Breast cancer Mother Hypertension Thyroid disease Other Allergies Cancer Diabetes No family history of adverse response to anesthesia No significant family history Denies family history of Tuberculosis Ovarian cancer Prostate cancer Emphysema, unspecified Colorectal cancer Lung disease Asthma Social History (Updated 07/17/23 @ 09:35 by Leyla Zuniga LPN) Smoking Status: Current every day smoker Tobacco Type: Cigarettes Age Started Using Tobacco: 19; packs per day: 1; Cigarettes Per Day: 20 CIG DAILY>ADVISED; Second Hand Exposure: No; Do You Dip or Chew Tobacco: No; Tobacco Cessation Education Requested by Patient: No Hx Alcohol Use: No Hx Substance Use: No Preferred Language: Singaporean Communication Ability: Effective Visual Impairment: No Limitations Hearing Ability: Normal 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 Beliefs That Will Affect Care: None marital status: Current Living Situation: Spouse Current Living Situation Comment: and Son current occupational status: disabled Other Information That Helps Us Care for You: No Feels Safe at Home: Yes Safety Concerns: Feels Safe At This Time Childhood Exposure to Second-Hand Smoke: Yes Diet: low carbohydrate and other Diet Comment: no fiber caffeine: Yes Dental Care, Regularly: No Physical Activity Frequency: Does not Exercise Seatbelt Use: always Sunscreen Use: No Assistive Devices: Cane, Glasses, Hearing Aid - Bilateral and Oxygen - at Night Review of Systems Review of Systems: See HPI above Physical Exam Physical Exam: General: patient appears mild distress; 99% on 2L NC; diaphoretic; appears stated age; cooperative HEENT: normocephalic, atraumatic; no scleral icterus; PERRLA w/ EOMs intact; m oist mucus membrane; trachea midline; vision and hearing grossly intact Skin: warm to touch; diaphoretic without signs of tenting; no cyanosis; no rashes or lesions noted Cardiac: RRR; no new murmurs noted Pulm: no acute respiratory distress; symmetrical chest expansion; clear breath sounds across all lung olson without adventitious sounds Abdominal: Soft; BS present; no ascites; no distention; incision sites without drainage, erythema, or signs of infection; surgical wrap not removed; bright red blood in TEMI drain without clots MSK: no tics or fasciculations; LEs covered in thigh-high teds/SCDs; pulses intact and symmetrical at radial, DP, and PT; patient demonstrates good strength in LEs b/l; sensation intact in LEs b/l; patient demonstrates ability to wiggle toes Neuro: A&Ox3; no tremors; no focal defects Results & Data Results & Data Vital Signs (Past 12 Hours) Vital Signs Temp Pulse Resp BP BP Pulse Ox O2 Del Method 08/09/23 08:54 172/114 H 08/09/23 07:54 37.2 C 77 18 190/105 H 185/115 H 100 Nasal Cannula 08/09/23 06:20 37.1 C 90 18 186/93 H 92 Nasal Cannula 08/09/23 02:49 37.0 C 99 H 20 158/97 H 96 Nasal Cannula 08/08/23 23:00 36.8 C 101 H 20 149/94 H 96 Nasal Cannula O2 Flow Rate 08/09/23 08:54 08/09/23 07:54 4 08/09/23 06:20 4 08/09/23 02:49 4 08/08/23 23:00 4 Laboratory Results Abnormal lab results 08/08/23 08/08/23 08/08/23 Range/Units 11:17 17:05 20:47 WBC (4.8-10.8) K/ul RDW Std Deviation (36.4-46.3) fL Neut # (Auto) (1.40-6.50) K/uL Galax # (Auto) (0.11-0.59) K/uL Glucose (70-99(Fasting)) mg/dl POC Glucose 107 H 157 H 127 H (70-99) mg/dl 08/09/23 08/09/23 08/09/23 Range/Units 00:03 06:10 07:07 WBC 14.68 H (4.8-10.8) K/ul RDW Std Deviation 48.5 H (36.4-46.3) fL Neut # (Auto) 11.78 H (1.40-6.50) K/uL [place]ax # (Auto) 1.03 H (0.11-0.59) K/uL Glucose (70-99(Fasting)) mg/dl POC Glucose 132 H 146 H (70-99) mg/dl 08/09/23 Range/Units 07:07 WBC (4.8-10.8) K/ul RDW Std Deviation (36.4-46.3) fL Neut # (Auto) (1.40-6.50) K/uL Galax # (Auto) (0.11-0.59) K/uL Glucose 136 H (70-99(Fasting)) mg/dl POC Glucose (70-99) mg/dl PG Care Time/CCT Total # of Minutes Spent Total Time Spent with Patient: Total time spent is greater than 50% in coordination of care (as documented) at patient's floor/unit and/or counseling patient: [place] [address] IN/OBS CONSULT LVL 4,60M Patient Type Established History Comprehensive Exam Comprehensive Medical Decision Making Moderate Complexity Diagnoses Hypertension I10 Abdominal pain R10.9 History of colon resection Z90.49 History of colostomy reversal Z98.890 DM II (diabetes mellitus, type II), controlled E11.9 SAUL (obstructive sleep apnea) G47.33 Diastolic CHF, acute on chronic I50.33 COPD (chronic obstructive pulmonary disease) J44.9
--- NOTE | 2023-08-09 11:21 | Surgery Progress Note ---
Date of Service August 09, 2023 Assessment & Plan (1) History of colostomy reversal: Plan: Postoperative day #1 Consulted internal medicine for management of his hypertension. Appreciate their input. 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 Having expected postoperative pain. Currently feeling okay as he just had a pain medication. Physical Exam Physical Exam: Alert. Mild discomfort. Abdomen is soft with expected tenderness. TEMI drain with serosanguineous output. Results & Data Vital Signs (Past 12 Hours) Vital Signs Temp Pulse Resp BP BP Pulse Ox O2 Del Method 08/09/23 08:54 172/114 H 08/09/23 07:54 37.2 C 77 18 190/105 H 185/115 H 100 Nasal Cannula 08/09/23 06:20 37.1 C 90 18 186/93 H 92 Nasal Cannula 08/09/23 02:49 37.0 C 99 H 20 158/97 H 96 Nasal Cannula O2 Flow Rate 08/09/23 08:54 08/09/23 07:54 4 08/09/23 06:20 4 08/09/23 02:49 4 PG Care Time/CCT Total # of Minutes Spent Total Time Spent with Patient: Total time spent is greater than 50% in coordination of care (as documented) at patient's floor/unit and/or counseling patient: Coding Level of Care Code 39492 Post Operative Follow-Up Diagnoses History of colostomy reversal Z98.890
[2023-08-09] MEDS ORDERED: VALSARTAN 80 MG TAB PO ONE (11:36)
[2023-08-09] MEDS ORDERED: NALOXONE HCL 0.4 MG/1 ML VIAL/CARP IV PRN (12:05)
[2023-08-09] MEDS ORDERED: HYDROmorphone PCA 30 MG/30 ML IV PRN (12:05)
--- NOTE | 2023-08-09 12:49 | Pharmacy Report ---
Pharmacy Glycemic Short Note 2 - Date of Service August 09, 2023 - Glycemic Short BSG Results (Last 24 hours): 08/08/23 08/08/23 08/09/23 17:05 20:47 00:03 Glucose POC Glucose 157 H 127 H 132 H 08/09/23 08/09/23 08/09/23 06:10 07:07 12:17 Glucose 136 H POC Glucose 146 H 106 H OUTPATIENT ANTIDIABETIC REGIMEN: * metformin PRN hyperglycemia HbA1c: 6.4% (05/22/23) ASSESSMENT: * DS is a 58 year old male POD #1 s/p lap. reversal colostomy * Received 8 mg IV dexamethasone in OR, but BSGs reasonably controlled postoperatively with no insulin * On ciprofloxacin/metronidazole for broad coverage, no ongoing steroids ordered * Ice chips/sips only at this time * May consider a low-dose basal insulin once diet is advanced, but will continue with conservative bolus regimen only for now PLAN FOR INPATIENT GLYCEMIC CONTROL: * Hold outpatient oral diabetes medications * Basal insulin * hold * Bolus insulin * NovoLog per scale ACHS or Q6hrs while NPO * Goal Range: Low 120 mg/dL - High 150 mg/dL * Correction Factor: 30 mg/dL/unit * Nutritional / Prandial insulin per carb ratio of 1 unit per 10 grams CHO consumed
[2023-08-09] MEDS: oxyCODONE/ACETAMINOPHEN 5mg/325mg TAB PO PRN (13:30)
[2023-08-09] MEDS: SODIUM CHLORIDE 0.9% 1,000 ML IV SCH (15:42)
[2023-08-09] MEDS: METOPROLOL TARTRATE 1 MG/ML VIAL IV SCH ×2 (18:26→23:43)
[2023-08-10] MEDS: LACTATED RINGER'S 1,000 ML IV SCH ×3 (01:34→18:26)
[2023-08-10] MEDS: ACETAMINOPHEN 1,000 MG/100 ML VIAL IV SCH ×3 (04:47→20:39)
[2023-08-10] MEDS: metroNIDAZOLE 500 MG/100 ML BAG IV SCH ×2 (04:48→14:02)
[2023-08-10] MEDS: METOPROLOL TARTRATE 1 MG/ML VIAL IV SCH (04:49)
[2023-08-10 06:34] LABS: Basophils # (auto) 0.04 K/uL (0.00-0.20); Basophils % (auto) 0.3 %; Eosinophils # (auto) 0.47 K/uL (0.00-0.50); Eosinophils % (auto) 3.5 %; Hematocrit (blood only) 40.8 % (42.0-52.0); Hemoglobin 13.7 g/dl (14.0-18.0); Immature Granulocytes # (auto) 0.05 K/uL (0.01-0.20); Immature Granulocytes % (auto) 0.4 %; Lymphocytes # (auto) 2.47 K/uL (1.20-3.40); Lymphocytes % (auto) 18.2 %; Mean Corpuscular Hemoglobin 30.6 pg (25.0-34.0); Mean Corpuscular Hgb Conc 33.6 g/dL (32.0-36.0); Mean Corpuscular Volume 91.1 fL (80.0-100.0); Mean Platelet Volume 9.7 fL (9.4-12.4); Monocytes # (auto) 1.14 K/uL (0.11-0.59); Monocytes % (auto) 8.4 %; Neutrophils # (auto) 9.39 K/uL (1.40-6.50); Neutrophils % (auto) 69.2 %; Platelet Count 315 K/uL (130-400); RDW Coefficient of Variation 14.2 % (11.5-14.5); RDW Standard Deviation 47.3 fL (36.4-46.3); Red Blood Count 4.48 M/uL (4.70-6.10); White Blood Count 13.56 K/ul (4.8-10.8)
[2023-08-10] MEDS: INSULIN ASPART PER UNIT CHARGE SC SCH ×4 (06:43→20:12)
[2023-08-10 07:03] LABS: BUN Creatinine Ratio 16.4 (10-20); Calcium 8.6 mg/dl (8.6-10.3); Creatinine Clr Calc Pharmacy 149.6 ml/min; Est GFR (African American) 131.3 ml/min; Est GFR (Non-African American) 113.3 ml/min; Potassium 3.7 mmol/L (3.5-5.1)
[2023-08-10] MEDS: ENOXAPARIN INJ 40 MG/0.4 ML SYR SQ SCH (08:22)
[2023-08-10] MEDS: FAMOTIDINE 40 MG TABLET PO PRN (08:22)
[2023-08-10] MEDS: UMECLIDINIUM/VILANTEROL 62.5/25MCG 7 PUFFS/INHALER INH SCH (08:23)
[2023-08-10] MEDS: FLUTICASONE FUROATE 100MCG 14 PUFFS/INHALER INH SCH (08:23)
[2023-08-10] MEDS ORDERED: Nursing to Pharmacy Communication SCH ×2 (08:30→11:30)
[2023-08-10] MEDS: CIPROFLOXACIN / D5W 400 MG/200 ML BAG IV SCH (08:33)
[2023-08-10] MEDS ORDERED: VALSARTAN 80 MG TAB PO SCH (09:00)
--- NOTE | 2023-08-10 10:22 | Surgery Progress Note ---
Date of Service August 10, 2023 Assessment & Plan (1) History of colostomy reversal: Plan: Doing as expected. I will let him try clear liquids since he is not nauseated although he is at high risk for an ileus so we will monitor closely Out of bed today We will keep the Unger 1 more day and anticipate removing it tomorrow Admission and Anticipated Discharge Date Admission Date: August 08, 2023 Subjective Patient seen. Continues to have some postoperative pain but it is better than yesterday. He has no nausea. He has no new complaints. Physical Exam Physical Exam: Alert. In mild discomfort Abdomen is soft with expected tenderness. TEMI drain serosanguineous Results & Data Vital Signs (Past 12 Hours) Vital Signs Temp Pulse Resp BP BP BP Pulse Ox 08/10/23 06:56 36.6 C 85 20 172/112 H 95 08/10/23 06:42 179/100 H 08/10/23 01:58 37.1 C 81 16 168/103 H 94 08/10/23 01:33 140/79 08/09/23 23:00 36.6 C 81 20 183/104 H 180/102 H 94 O2 Del Method O2 Flow Rate 08/10/23 06:56 Nasal Cannula 2.5 08/10/23 06:42 08/10/23 01:58 Nasal Cannula 08/10/23 01:33 08/09/23 23:00 Nasal Cannula PG Care Time/CCT Total # of Minutes Spent Total Time Spent with Patient: Total time spent is greater than 50% in coordination of care (as documented) at patient's floor/unit and/or counseling patient: Coding Level of Care Code 26133 Post Operative Follow-Up Diagnoses History of colostomy reversal Z98.890
[2023-08-10] MEDS: DULoxetine HCL 60 MG CAP PO SCH (13:04)
[2023-08-10] MEDS: METOPROLOL TARTRATE 25 MG TAB PO SCH ×2 (13:04→20:31)
[2023-08-10] MEDS: SODIUM CHLORIDE 0.9% 1,000 ML IV SCH (14:02)
[2023-08-10] MEDS: GABAPENTIN 300 MG CAP PO SCH ×2 (14:02→20:33)
--- NOTE | 2023-08-10 18:18 | Hospitalist Progress Note ---
Date of Service August 10, 2023 Assessment & Plan (1) Hypertension: Plan: SBP in the 200s during surgery. Pt reports he takes his metoprolol and valsartan at home as needed. Typically takes metoprolol more often than valsartan which is 1-2 times per week. BPs now excellent with restarting metoprolol po this AM While NPO was on metoprolol tartrate 2.5 mg IV scheduled dose here but now taking clears--> convert to home dose metoprolol 25mg po bid -discontinue valsartan for now as his BP has come down very quickly and was likely moreso related to uncontrolled pain -he reports when he takes both metoprolol and valsartan at same time, he gets syncope -renal function good, pain controlled, feeling well -ok to downgrade back to med/surg unit off tele (2) History of colostomy reversal: Plan: S/p laparoscopic colostomy reversal on 08/08/[address] Bernard Rocha, DO Extensive adhesions noted during the procedure Leukocytosis improving and 2/2 stress from surgery Perioperative abx with Cipro Post-op care and pain control as per Surgery advanced diet to clears await return of bowel function (3) History of colon resection: Plan: On 04/29/23 due to perforation of sigmoid diverticulitis (4) DM II (diabetes mellitus, type II), controlled: Plan: Last A1c 6.4% on 05/22/2023 Patient is reportedly not taking metformin 1000 mg at home daily Glycemic pharmacy consulted (5) SAUL (obstructive sleep apnea): Plan: On 2L NC at night Patient does not tolerate CPAP (6) Diastolic CHF, acute on chronic: Plan: Last echo on 10/29/2022 showed LVEF 70% no evidence of volume overload here (7) COPD (chronic obstructive pulmonary disease): Plan: Continue Anoro Ellipta daily (8) Chronic pain syndrome: Plan: restart home duloxetine and gabapentin for chronic pain to avoid withdrawal now that he is taking po resume home po opioids when weaned off 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 He is on chronic press tender long goods opioids and had been unable to take his usual pain medications. Denies CP, SOB, nausea. No flatus passed yet. Is tolerating clear liquids today as diet advanced by Surgery this AM Has not been out of bed yet. Tele with NSR, rates 70-80s I discussed his care with his Surgeon Physical Exam Constitutional: WD/WN, vitals as above Respiratory: normal respiratory effort, lungs clear to auscultation Cardiovascular: RRR, no murmur, no edema Gastrointestinal (Abdomen): Inspection/Auscultation: + hypoactive bowel sounds; + abdomen abnormal to inspection (large dressing in place c/d/i,TEMI drain rt abdomen serosang) Percussion/Palpation: + abdomen tender (mild over incision sites) and abdomen soft; no guarding Psychiatric: A+Ox3, euthymic affect Genitourinary: Foely in place Results & Data Results & Data Vital Signs (Past 12 Hours) Vital Signs Temp Pulse Resp BP BP Pulse Ox O2 Del Method 08/10/23 15:26 36.7 C 78 19 107/66 93 Nasal Cannula 08/10/23 10:53 36.8 C 93 H 21 149/100 H 96 Nasal Cannula 08/10/23 08:00 Room Air 08/10/23 06:56 36.6 C 85 20 172/112 H 95 Nasal Cannula 08/10/23 06:42 179/100 H O2 Flow Rate 08/10/23 15:26 2 08/10/23 10:53 2.5 08/10/23 08:00 08/10/23 06:56 2.5 08/10/23 06:42 Laboratory Results CBC, BMP reviewed PG Care Time/CCT Total # of Minutes Spent Total Time Spent with Patient: Total time spent is greater than 50% in coordination of care (as documented) at patient's floor/unit and/or counseling patient: Coding Level of Care Code 29376 SUB INP/OBS CARE 3/50MIN Diagnoses Hypertension I10 History of colostomy reversal Z98.890 History of colon resection Z90.49 DM II (diabetes mellitus, type II), controlled E11.9 SAUL (obstructive sleep apnea) G47.33 Diastolic CHF, acute on chronic I50.33 COPD (chronic obstructive pulmonary disease) J44.9 Chronic pain syndrome G89.4
[2023-08-10] MEDS: TAMSULOSIN HCL 0.4 MG CAP PO SCH (20:33)
[2023-08-10] MEDS: ATORVASTATIN 40 MG TAB PO SCH (20:33)
[2023-08-11] MEDS: LACTATED RINGER'S 1,000 ML IV SCH (02:34)
[2023-08-11] MEDS: ACETAMINOPHEN 1,000 MG/100 ML VIAL IV SCH ×3 (04:50→14:06)
[2023-08-11 09:16] LABS: Basophils # (auto) 0.04 K/uL (0.00-0.20); Basophils % (auto) 0.5 %; Eosinophils # (auto) 0.55 K/uL (0.00-0.50); Eosinophils % (auto) 6.4 %; Hematocrit (blood only) 38.1 % (42.0-52.0); Hemoglobin 12.6 g/dl (14.0-18.0); Immature Granulocytes # (auto) 0.05 K/uL (0.01-0.20); Immature Granulocytes % (auto) 0.6 %; Lymphocytes # (auto) 2.58 K/uL (1.20-3.40); Lymphocytes % (auto) 30.1 %; Mean Corpuscular Hemoglobin 30.2 pg (25.0-34.0); Mean Corpuscular Hgb Conc 33.1 g/dL (32.0-36.0); Mean Corpuscular Volume 91.4 fL (80.0-100.0); Mean Platelet Volume 10.2 fL (9.4-12.4); Monocytes # (auto) 0.69 K/uL (0.11-0.59); Monocytes % (auto) 8.1 %; Neutrophils # (auto) 4.66 K/uL (1.40-6.50); Neutrophils % (auto) 54.3 %; Platelet Count 298 K/uL (130-400); RDW Coefficient of Variation 14.1 % (11.5-14.5); RDW Standard Deviation 46.9 fL (36.4-46.3); Red Blood Count 4.17 M/uL (4.70-6.10); White Blood Count 8.57 K/ul (4.8-10.8)
[2023-08-11] MEDS: DULoxetine HCL 60 MG CAP PO SCH (09:16)
[2023-08-11] MEDS: UMECLIDINIUM/VILANTEROL 62.5/25MCG 7 PUFFS/INHALER INH SCH (09:16)
[2023-08-11] MEDS: ENOXAPARIN INJ 40 MG/0.4 ML SYR SQ SCH (09:16)
[2023-08-11] MEDS: GABAPENTIN 300 MG CAP PO SCH ×3 (09:17→20:06)
[2023-08-11] MEDS: FLUTICASONE FUROATE 100MCG 14 PUFFS/INHALER INH SCH (09:17)
[2023-08-11] MEDS: METOPROLOL TARTRATE 25 MG TAB PO SCH ×2 (09:17→20:06)
[2023-08-11] MEDS: INSULIN ASPART PER UNIT CHARGE SC SCH ×4 (09:25→21:56)
[2023-08-11 09:32] LABS: BUN Creatinine Ratio 11.7 (10-20); Calcium 8.5 mg/dl (8.6-10.3); Creatinine Clr Calc Pharmacy 137.1 ml/min; Est GFR (African American) 126.7 ml/min; Est GFR (Non-African American) 109.3 ml/min; Potassium 3.5 mmol/L (3.5-5.1)
--- NOTE | 2023-08-11 09:41 | Surgery Progress Note ---
Date of Service August 11, 2023 Assessment & Plan (1) History of colostomy reversal: Plan: Postoperative day #3 Doing well We will advance to full liquid. 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 Doing well. Pain improving. He had a rather large loose bowel movement this morning. He is tolerating clear liquids without any problem. Physical Exam Physical Exam: Alert. No acute distress Abdomen is soft nondistended. All of his incisions look great. The TEMI drain has serous fluid Results & Data Vital Signs (Past 12 Hours) Vital Signs Temp Pulse Resp BP Pulse Ox O2 Del Method O2 Flow Rate 08/11/23 08:02 36.5 C 75 18 168/94 H 90 Nasal Cannula 2 08/11/23 01:55 36.8 C 74 18 126/77 96 Nasal Cannula 2 08/11/23 01:01 Nasal Cannula 2 08/10/23 23:00 36.6 C 66 20 110/68 97 Nasal Cannula PG Care Time/CCT Total # of Minutes Spent Total Time Spent with Patient: Total time spent is greater than 50% in coordination of care (as documented) at patient's floor/unit and/or counseling patient: Coding Level of Care Code 23466 Post Operative Follow-Up Diagnoses History of colostomy reversal Z98.890
--- NOTE | 2023-08-11 09:53 | XRay Report ---
XR chest 1V portable HISTORY: 58 years-old Male hypoxia acute hypoxia COMPARISON: Chest CT 02/28/2023 TECHNIQUE: AP view of the chest FINDINGS: Cardiomediastinal and hilar silhouettes are within normal limits. No pneumothorax, pleural effusion o r airspace consolidation. Mild linear bibasilar atelectasis versus scarring. Bones appear grossly int act. IMPRESSION: No acute process. ACT 112: Negative or not required by law. The above report was generated using voice recognition software. It may contain grammatical, syntax o r spelling errors. Electronically signed by: Ed Carbajal M.D. 08/11/2023 9:51 AM
[2023-08-11] MEDS: oxyCODONE/ACETAMINOPHEN 5mg/325mg TAB PO PRN ×4 (10:31→22:06)
--- NOTE | 2023-08-11 12:23 | Hospitalist Progress Note ---
Date of Service August 11, 2023 Assessment & Plan (1) Hypertension: Plan: Fluctuating but acceptable overall. Continue current medical management. (2) History of colostomy reversal: Plan: S/p laparoscopic colostomy reversal on 08/08/23. Postoperative day 3. Diet has been advanced. IV fluids have been discontinued. Leukocytosis improving and 2/2 stress from surgery. Perioperative abx with Cipro (3) History of colon resection: Plan: On 04/29/23 due to perforation of sigmoid diverticulitis. Ostomy creation at that time (4) DM II (diabetes mellitus, type II), controlled: Plan: Last A1c 6.4% on 05/22/2023. Sliding scale coverage as needed. Patient is reportedly not taking metformin 1000 mg at home daily (5) SAUL (obstructive sleep apnea): Plan: Stable. On 2L NC at night. Patient does not tolerate CPAP (6) COPD (chronic obstructive pulmonary disease): Plan: Continue Anoro Ellipta daily (7) Chronic pain syndrome: Plan: restarted home duloxetine and gabapentin for chronic pain to avoid withdrawal now that he is taking po. 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 Monitor intake and output. Continue current medical management Plan Hopeful discharge to home per primary service later this week. Admission and Anticipated Discharge Date Admission Date: August 08, 2023 Subjective Alert and oriented. Doing well. At the time of my rounds he was not requiring oxygen at all despite nursing documentation that he was wearing 2 L oxygen with 90% saturation. Portable chest x-ray is unremarkable. BNP is only 30. Nevertheless, IV fluids have been discontinued and he is now on a full liquid diet. Surgery entry noted. Postoperative day #3 after laparoscopic reversal of colostomy. Review of Systems Review of Systems: Constitutional-no fever or chills ENT-no blurred vision, no double vision, no epistaxis, no sore throat Respiratory-no cough, no wheezing, no shortness of breath Cardiac-no palpitations, no chest pain, no syncope GI-no nausea, vomiting, diarrhea, melena, hematochezia -no urinary retention, no urinary incontinence, no dysuria, no hematuria Musculoskeletal-no joint pain, no muscle tenderness Skin-no bruising, no rashes, no pruritus Neuro-no isolated weakness, no paresthesia, no weakness Psych-no depression, no anxiety Physical Exam Physical Exam: General-alert and oriented x3, no fevers, no chills HEENT-head atraumatic and normocephalic, pupils equal and reactive to light, extraocular muscles intact Neck-no lymphadenopathy or thyromegaly, trachea midline Chest-clear to auscultation percussion. No rales wheezing or rhonchi Cardiac-regular rate and rhythm, normal S1 and S2 Abdomen-normal bowel sounds, no hepatosplenomegaly Extremities-no cyanosis, clubbing, or edema Neuro-cranial nerves II through XII intact, motor and sensory function within normal limits, strength symmetrical, no focal deficits Psych-normal affect, normal mood Results & Data Results & Data Vital Signs (Past 12 Hours) Vital Signs Temp Pulse Resp BP Pulse Ox O2 Del Method O2 Flow Rate 08/11/23 08:00 Room Air 08/11/23 08:02 36.5 C 75 18 168/94 H 90 Nasal Cannula 2 08/11/23 01:55 36.8 C 74 18 126/77 96 Nasal Cannula 2 08/11/23 01:01 Nasal Cannula 2 Laboratory Results 08/11/23 08:23 08/11/23 08:23 PG Care Time/CCT Total # of Minutes Spent Total Time Spent with Patient: Total time spent is greater than 50% in coordination of care (as documented) at patient's floor/unit and/or counseling patient: Coding Level of Care Code 02151 SUB INP/OBS CARE 3/50MIN Diagnoses Hypertension I10 History of colostomy reversal Z98.890 History of colon resection Z90.49 DM II (diabetes mellitus, type II), controlled E11.9 SAUL (obstructive sleep apnea) G47.33 COPD (chronic obstructive pulmonary disease) J44.9 Chronic pain syndrome G89.4 Chronic diastolic CHF (congestive heart failure) I50.32
--- NOTE | 2023-08-11 12:44 | Electrocardiogram Report ---
Test Reason : Blood Pressure : / mmHG Vent. Rate : 066 BPM Atrial Rate : 066 BPM P-R Int : 160 ms QRS Dur : 104 ms QT Int : 468 ms P-R-T Axes : 034 037 053 degrees QTc Int : 490 ms Normal sinus rhythm Incomplete right bundle branch block Prolonged QT Abnormal ECG When compared with ECG of 25-APR-2023 14:28, Incomplete right bundle branch block is now Present Confirmed by Mansoor Sadler ([id number]) on 08/11/2023 12:44:40 PM Referred By: Bernard Rocha Confirmed By:Kenney Sadler
[2023-08-11] MEDS: ATORVASTATIN 40 MG TAB PO SCH (20:05)
[2023-08-11] MEDS: TAMSULOSIN HCL 0.4 MG CAP PO SCH (20:07)
[2023-08-12] MEDS ORDERED: oxyCODONE HCL IR 5 MG TAB (IMMEDIATE RELEASE) PO STA (02:44)
[2023-08-12 07:43] LABS: Basophils # (auto) 0.05 K/uL (0.00-0.20); Basophils % (auto) 0.5 %; Eosinophils # (auto) 0.55 K/uL (0.00-0.50); Hematocrit (blood only) 38.4 % (42.0-52.0); Hemoglobin 12.7 g/dl (14.0-18.0); Immature Granulocytes # (auto) 0.05 K/uL (0.01-0.20); Immature Granulocytes % (auto) 0.5 %; Lymphocytes # (auto) 2.32 K/uL (1.20-3.40); Lymphocytes % (auto) 25.4 %; Mean Corpuscular Hemoglobin 30.2 pg (25.0-34.0); Mean Corpuscular Hgb Conc 33.1 g/dL (32.0-36.0); Mean Corpuscular Volume 91.2 fL (80.0-100.0); Mean Platelet Volume 9.7 fL (9.4-12.4); Monocytes # (auto) 0.76 K/uL (0.11-0.59); Monocytes % (auto) 8.3 %; Neutrophils # (auto) 5.41 K/uL (1.40-6.50); Neutrophils % (auto) 59.3 %; Platelet Count 359 K/uL (130-400); RDW Coefficient of Variation 13.8 % (11.5-14.5); RDW Standard Deviation 46.5 fL (36.4-46.3); Red Blood Count 4.21 M/uL (4.70-6.10); White Blood Count 9.14 K/ul (4.8-10.8)
[2023-08-12 08:08] LABS: BUN Creatinine Ratio 9.2 (10-20); Calcium 8.6 mg/dl (8.6-10.3); Creatinine Clr Calc Pharmacy 126.6 ml/min; Est GFR (African American) 122.6 ml/min; Est GFR (Non-African American) 105.7 ml/min; Potassium 3.3 mmol/L (3.5-5.1)
[2023-08-12] MEDS: oxyCODONE/ACETAMINOPHEN 5mg/325mg TAB PO PRN ×3 (08:28→16:41)
[2023-08-12] MEDS: METOPROLOL TARTRATE 25 MG TAB PO SCH ×2 (08:29→21:09)
[2023-08-12] MEDS: GABAPENTIN 300 MG CAP PO SCH ×3 (08:29→21:09)
[2023-08-12] MEDS: FAMOTIDINE 40 MG TABLET PO PRN ×2 (08:29→21:10)
[2023-08-12] MEDS: FLUTICASONE FUROATE 100MCG 14 PUFFS/INHALER INH SCH (08:30)
[2023-08-12] MEDS: DULoxetine HCL 60 MG CAP PO SCH (08:30)
[2023-08-12] MEDS: UMECLIDINIUM/VILANTEROL 62.5/25MCG 7 PUFFS/INHALER INH SCH (08:30)
[2023-08-12] MEDS: ENOXAPARIN INJ 40 MG/0.4 ML SYR SQ SCH (08:31)
[2023-08-12] MEDS: INSULIN ASPART PER UNIT CHARGE SC SCH ×4 (08:33→21:46)
--- NOTE | 2023-08-12 09:05 | Surgery Progress Note ---
Date of Service August 12, 2023 Assessment & Plan (1) History of colostomy reversal: Plan: Doing well. We will advance to low residue diet. Remove TEMI drain. If he does well potential discharge tomorrow. Admission and Anticipated Discharge Date Admission Date: August 08, 2023 Subjective Patient seen. Feeling well. Multiple bowel movements. Tolerating full liquid diet. Physical Exam Physical Exam: Alert. No acute distress Abdomen soft with expected tenderness. Incisions look good TEMI with serous fluid Results & Data Vital Signs (Past 12 Hours) Vital Signs Temp Pulse Resp BP Pulse Ox O2 Del Method 08/12/23 07:58 36.6 C 79 16 151/71 H 93 Room Air PG Care Time/CCT Total # of Minutes Spent Total Time Spent with Patient: Total time spent is greater than 50% in coordination of care (as documented) at patient's floor/unit and/or counseling patient: Coding Level of Care Code 73306 Post Operative Follow-Up Diagnoses History of colostomy reversal Z98.890
[2023-08-12] MEDS ORDERED: POTASSIUM CHLORIDE CRTAB 20 MEQ TABCR PO STA (09:14)
--- NOTE | 2023-08-12 11:43 | Hospitalist Progress Note ---
Date of Service August 12, 2023 Assessment & Plan (1) Hypertension: Plan: Fluctuating but acceptable overall. Continue current medical management. (2) History of colostomy reversal: Plan: S/p laparoscopic colostomy reversal on 08/08/23. Postoperative day 4. Diet has been advanced. IV fluids have been discontinued. Leukocytosis improving and 2/2 stress from surgery. Perioperative abx with Cipro (3) History of colon resection: Plan: On 04/29/23 due to perforation of sigmoid diverticulitis. Ostomy creation at that time (4) DM II (diabetes mellitus, type II), controlled: Plan: Last A1c 6.4% on 05/22/2023. Sliding scale coverage as needed. Patient is reportedly not taking metformin 1000 mg at home daily (5) SAUL (obstructive sleep apnea): Plan: Stable. On 2L NC at night. Patient does not tolerate CPAP (6) COPD (chronic obstructive pulmonary disease): Plan: Continue Anoro Ellipta daily (7) Chronic pain syndrome: Plan: restarted home duloxetine and gabapentin for chronic pain to avoid withdrawal now that he is taking po. 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 Monitor intake and output. Continue current medical management (9) Hypokalemia: Plan: Oral replacement. Serial labs Plan Hopeful discharge to home per primary service later this week. Possibly tomorrow, August 13 Admission and Anticipated Discharge Date Admission Date: August 08, 2023 Subjective Alert and oriented. No distress. TEMI drain was removed by surgery today, Jul, and he is now on a low residue diet. Potassium supplementation ordered for mild hypokalemia. Hopefully he can go home tomorrow, August 13 Review of Systems Review of Systems: Constitutional-no fever or chills ENT-no blurred vision, no double vision, no epistaxis, no sore throat Respiratory-no cough, no wheezing, no shortness of breath Cardiac-no palpitations, no chest pain, no syncope GI-no nausea, vomiting, diarrhea, melena, hematochezia -no urinary retention, no urinary incontinence, no dysuria, no hematuria Musculoskeletal-no joint pain, no muscle tenderness Skin-no bruising, no rashes, no pruritus Neuro-no isolated weakness, no paresthesia, no weakness Psych-no depression, no anxiety Physical Exam Physical Exam: General-alert and oriented x3, no fevers, no chills HEENT-head atraumatic and normocephalic, pupils equal and reactive to light, extraocular muscles intact Neck-no lymphadenopathy or thyromegaly, trachea midline Chest-clear to auscultation percussion. No rales wheezing or rhonchi Cardiac-regular rate and rhythm, normal S1 and S2 Abdomen-normal bowel sounds, no hepatosplenomegaly Extremities-no cyanosis, clubbing, or edema Neuro-cranial nerves II through XII intact, motor and sensory function within normal limits, strength symmetrical, no focal deficits Psych-normal affect, normal mood Results & Data Results & Data Vital Signs (Past 12 Hours) Vital Signs Temp Pulse Resp BP Pulse Ox O2 Del Method 08/12/23 08:00 Room Air 08/12/23 07:58 36.6 C 79 16 151/71 H 93 Room Air Laboratory Results 08/12/23 06:42 08/12/23 06:42 PG Care Time/CCT Total # of Minutes Spent Total Time Spent with Patient: Total time spent is greater than 50% in coordination of care (as documented) at patient's floor/unit and/or counseling patient: Coding Level of Care Code 99886 SUB INP/OBS CARE 3/50MIN Diagnoses Hypertension I10 History of colostomy reversal Z98.890 History of colon resection Z90.49 DM II (diabetes mellitus, type II), controlled E11.9 SAUL (obstructive sleep apnea) G47.33 COPD (chronic obstructive pulmonary disease) J44.9 Chronic pain syndrome G89.4 Chronic diastolic CHF (congestive heart failure) I50.32 Hypokalemia E87.6
[2023-08-12] MEDS ORDERED: MoRPHine SULFATE IR 15 MG TAB (IMMEDIATE RELEASE) PO PRN (17:18)
[2023-08-12] MEDS: MoRPHine SULFATE IR 15 MG TAB (IMMEDIATE RELEASE) PO SCH (21:08)
[2023-08-12] MEDS: TAMSULOSIN HCL 0.4 MG CAP PO SCH (21:09)
[2023-08-12] MEDS: ATORVASTATIN 40 MG TAB PO SCH (21:10)
[2023-08-12] MEDS: oxyCODONE HCL IR 5 MG TAB (IMMEDIATE RELEASE) PO PRN (22:49)
[2023-08-13] MEDS: METOPROLOL TARTRATE 25 MG TAB PO SCH (07:58)
[2023-08-13] MEDS: MoRPHine SULFATE IR 15 MG TAB (IMMEDIATE RELEASE) PO SCH (07:58)
[2023-08-13] MEDS: GABAPENTIN 300 MG CAP PO SCH (07:58)
[2023-08-13] MEDS: DULoxetine HCL 60 MG CAP PO SCH (07:59)
[2023-08-13] MEDS: UMECLIDINIUM/VILANTEROL 62.5/25MCG 7 PUFFS/INHALER INH SCH (07:59)
[2023-08-13] MEDS: ENOXAPARIN INJ 40 MG/0.4 ML SYR SQ SCH (07:59)
[2023-08-13] MEDS: FLUTICASONE FUROATE 100MCG 14 PUFFS/INHALER INH SCH (07:59)
[2023-08-13] MEDS: oxyCODONE HCL IR 5 MG TAB (IMMEDIATE RELEASE) PO PRN (08:03)
[2023-08-13 08:13] LABS: Basophils # (auto) 0.06 K/uL (0.00-0.20); Basophils % (auto) 0.7 %; Eosinophils # (auto) 0.62 K/uL (0.00-0.50); Eosinophils % (auto) 7.1 %; Hematocrit (blood only) 39.2 % (42.0-52.0); Immature Granulocytes # (auto) 0.04 K/uL (0.01-0.20); Immature Granulocytes % (auto) 0.5 %; Lymphocytes # (auto) 2.87 K/uL (1.20-3.40); Lymphocytes % (auto) 32.9 %; Mean Corpuscular Hemoglobin 30.2 pg (25.0-34.0); Mean Corpuscular Hgb Conc 33.2 g/dL (32.0-36.0); Mean Corpuscular Volume 91.2 fL (80.0-100.0); Mean Platelet Volume 9.9 fL (9.4-12.4); Monocytes # (auto) 0.71 K/uL (0.11-0.59); Monocytes % (auto) 8.1 %; Neutrophils # (auto) 4.43 K/uL (1.40-6.50); Neutrophils % (auto) 50.7 %; Platelet Count 373 K/uL (130-400); RDW Coefficient of Variation 13.9 % (11.5-14.5); RDW Standard Deviation 46.2 fL (36.4-46.3); White Blood Count 8.73 K/ul (4.8-10.8)
--- NOTE | 2023-08-13 08:23 | Surgery Progress Note ---
Date of Service August 13, 2023 Assessment & Plan (1) History of colostomy reversal: Plan: Patient resting in bed Offers no complaints at present time Abdominal pain tolerated with PO meds Denies fever, chills, SOB, CP, N/V Having BMs and passing flatus Tolerating low fiber diet VSS low grade temp over night 99.1 WBC 8.7 , BMP pending Appreciate medicines input on BPs, Patient should f/u with PCP outpatient Likely D/C later today, pt to follow up in office with Dr. Rocha in 2 weeks. Admission and Anticipated Discharge Date Admission Date: August 08, 2023 Subjective Patient resting in bed Offers no complaints at present time Abdominal pain tolerated with PO meds Denies fever, chills, SOB, CP, N/V Having BMs and passing flatus Review of Systems Constitutional: no fever, no chills and no sweats Respiratory: no dyspnea Cardiovascular: no chest pain Gastrointestinal: + abdominal pain; no nausea and no vomiting Physical Exam Physical Exam: alert oriented, pleasant Constitutional: well developed, cooperative and comfortable; no acute distress Respiratory: normal respiratory effort and able to speak in complete sentences; no respiratory distress Cardiovascular: Rate/Rhythm: regular rate Remains hypertensive 166/78 Gastrointestinal (Abdomen): Inspection/Auscultation: + abdominal surgical incision (Willi , CDI) and + abdominal surgical drain present (elda ); abdomen not distended Percussion/Palpation: + abdomen tender and abdomen soft; no guarding Results & Data Vital Signs (Past 12 Hours) Vital Signs Pulse Resp BP BP Pulse Ox O2 Del Method 08/12/23 21:10 Room Air 08/12/23 22:06 75 166/78 H 08/12/23 21:12 75 18 193/102 H 202/115 H 93 Room Air PG Care Time/CCT Total # of Minutes Spent Total Time Spent with Patient: Total time spent is greater than 50% in coordination of care (as documented) at patient's floor/unit and/or counseling patient: Coding Level of Care Code 88548 Post Operative Follow-Up Diagnoses History of colostomy reversal Z98.890
[2023-08-13 08:39] LABS: BUN Creatinine Ratio 14.3 (10-20); Creatinine Clr Calc Pharmacy 106.8 ml/min; Est GFR (African American) 114.3 ml/min; Est GFR (Non-African American) 98.6 ml/min; Potassium 3.6 mmol/L (3.5-5.1)
[2023-08-13] MEDS: INSULIN ASPART PER UNIT CHARGE SC SCH (08:47)
[2023-08-13] MEDS ORDERED: METOPROLOL TARTRATE 50 MG TAB PO SCH (10:30)
--- NOTE | 2023-08-13 12:23 | Hospitalist Progress Note ---
Date of Service August 13, 2023 Assessment & Plan (1) Hypertension: Plan: Metoprolol uptitrated todayAugust 13, for better blood pressure control. (2) History of colostomy reversal: Plan: S/p laparoscopic colostomy reversal on 08/08/23. Postoperative day 5. Diet has been advanced. IV fluids have been discontinued. Leukocytosis improving and 2/2 stress from surgery. Perioperative abx with Cipro (3) History of colon resection: Plan: On 04/29/23 due to perforation of sigmoid diverticulitis. Ostomy creation at that time (4) DM II (diabetes mellitus, type II), controlled: Plan: Last A1c 6.4% on 05/22/2023. Sliding scale coverage as needed. Patient is reportedly not taking metformin 1000 mg at home daily (5) SAUL (obstructive sleep apnea): Plan: Stable. On 2L NC at night. Patient does not tolerate CPAP (6) COPD (chronic obstructive pulmonary disease): Plan: Continue Anoro Ellipta daily (7) Chronic pain syndrome: Plan: restarted home duloxetine and gabapentin for chronic pain to avoid withdrawal now that he is taking po. Resumed home po opioids which he uses chronically. (8) Chronic diastolic CHF (congestive heart failure): Plan: Stable. Monitor intake and output. Continue current medical management (9) Hypokalemia: Plan: Oral replacement. Serial labs. Corrected Plan Home todayAugust 13, per primary service Admission and Anticipated Discharge Date Admission Date: August 08, 2023 Subjective Alert and oriented. Medically stable. Metoprolol dosage uptitrated for better blood pressure control. He appears to be medically stable for discharge todayAugust 13 Review of Systems Review of Systems: Constitutional-no fever or chills ENT-no blurred vision, no double vision, no epistaxis, no sore throat Respiratory-no cough, no wheezing, no shortness of breath Cardiac-no palpitations, no chest pain, no syncope GI-no nausea, vomiting, diarrhea, melena, hematochezia -no urinary retention, no urinary incontinence, no dysuria, no hematuria Musculoskeletal-no joint pain, no muscle tenderness Skin-no bruising, no rashes, no pruritus Neuro-no isolated weakness, no paresthesia, no weakness Psych-no depression, no anxiety Physical Exam Physical Exam: General-alert and oriented x3, no fevers, no chills HEENT-head atraumatic and normocephalic, pupils equal and reactive to light, extraocular muscles intact Neck-no lymphadenopathy or thyromegaly, trachea midline Chest-clear to auscultation percussion. No rales wheezing or rhonchi Cardiac-regular rate and rhythm, normal S1 and S2 Abdomen-normal bowel sounds, no hepatosplenomegaly Extremities-no cyanosis, clubbing, or edema Neuro-cranial nerves II through XII intact, motor and sensory function within normal limits, strength symmetrical, no focal deficits Psych-normal affect, normal mood Results & Data Results & Data Vital Signs (Past 12 Hours) Vital Signs Temp Pulse Resp BP Pulse Ox O2 Del Method 08/13/23 09:09 36.9 C 78 18 97 08/13/23 08:00 Room Air 08/13/23 08:00 36.9 C 78 18 148/66 H 97 Room Air Laboratory Results 08/13/23 06:57 08/13/23 06:57 PG Care Time/CCT Total # of Minutes Spent Total Time Spent with Patient: Total time spent is greater than 50% in coordination of care (as documented) at patient's floor/unit and/or counseling patient: Coding Level of Care Code 88652 SUB INP/OBS CARE 3/50MIN Diagnoses Hypertension I10 History of colostomy reversal Z98.890 History of colon resection Z90.49 DM II (diabetes mellitus, type II), controlled E11.9 SAUL (obstructive sleep apnea) G47.33 COPD (chronic obstructive pulmonary disease) J44.9 Chronic pain syndrome G89.4 Chronic diastolic CHF (congestive heart failure) I50.32 Hypokalemia E87.6
--- NOTE | 2023-08-16 08:13 | Discharge Summary ---
Date of Service 08/13/2023 Principal Diagnosis Laparoscopic Reversal Colostomy, extensive enterolysis Discharge Exam alert oriented, pleasant Constitutional well developed, cooperative and comfortable; no acute distress Respiratory normal respiratory effort and able to speak in complete sentences; no respiratory distress Cardiovascular Rate/Rhythm: regular rate Gastrointestinal (Abdomen) Inspection/Auscultation: + abdominal surgical incision ([place] , CDI); abdomen not distended Percussion/Palpation: + abdomen tender and abdomen soft; no guarding Discharge Data Allergies Allergy/AdvReac Type Severity Reaction Status Date / Time bee venom protein (honey bee) Allergy Severe PASSES OUT Verified 08/08/23 11:11 naproxen Allergy Intermediate SEVERE RASH Verified 08/08/23 11:11 tramadol AdvReac Intermediate GI SYMPTOMS Verified 08/08/23 11:11 Consultations 08/09/23 08:40 Consult Hospitalist Routine Procedures Performed Operation Date: 08/08/23 12:45 Actual Procedures p Laparoscopic Reversal Colostomy, extensive enterolysis - Bernard Rocha, DO Hospital Course (1) History of colostomy reversal: You underwent an elective Laparoscopic Reversal Colostomy on 08/08/[address] Rocha. You were admitted to the hospital after the procedure. The hospitalist were consulted for your hypertension. Your diet was advanced, from clear liquid to low fiber. Your pain was under control. You started having bowel movements. You were discharged in stable condition on 08/13/23 and instructed to follow up with your PCP O/p for HTN, and to f/u with Dr. Rocha in 2 weeks. You verbaliz ed understanding of return precautions. Total Time Total Time Spent Total Time Spent (In Minutes): 30 Discharge Plan Discharge Items Patient Disposition: Home - Self-Care Reason For Visit: POST OPERATIVE COLOSTOMY REVERSAL Discharge Diagnosis: colostomy reversal Activity: Per Instructions section Lifting: No more than 10 pounds Bathing Comment: may shower; no soaking in tubs/pools x 2 weeks Exercise/Sports: Wait until after follow-up appointment Non-emergency contact: Surgeon Call non-emergency contact if: you have any medication questions, your symptoms worsen, your pain is worsening, you have a fever, your temperature is above 101.5, your wound has increased redness, your wound has increased drainage and your wound pain has increased Follow-up/Referrals: Mansoor Zhao MD [Primary Care Provider] - (Call office at discharge for a follow up appointment ) Bernard Rocha, [Surgeon] - (Please call to schedule follow up in clinic within 2 weeks ) Diet: Low Fiber Diet Comment: Low Fiber Addtl Attending Provider Instructions: You need a follow up with your PCP for blood pressure checks and a refill on metoprolol, Please call them to be seen in the next 5 days. Your metoprolol dose was increased to 50mg by mouth every 12 hours for hypertension. You have ruben that will need to come out at your follow up appointment. Liz baez keep surgical area clean and dry, apply gauze and tape. Change your dressing daily. Lei drain site continue to cover with gauze and tape until it has scabed over. Continue a low fiber diet Pending Studies at Discharge: Yes Studies:: surgical pathology Stand-Alone Forms: [facility] Medications and DC Order Prescriptions: New metoprolol tartrate 50 mg Tablet 50 mg PO BID Qty: 14 0RF Rx Instructions: take one tablet by mouth every 12 hours for hypertension. You need to call your PCP and schedule a follow up within 5 days from discharge. Continued albuterol sulfate 90 mcg/actuation HFA aerosol inhaler 2 puff INHALATION Q4H PRN (Reason: Wheezing) Qty: 8.5 11RF atorvastatin 80 mg tablet 80 mg PO HS Qty: 90 3RF duloxetine 60 mg capsule,delayed release(DR/EC) 60 mg PO QAM Qty: 90 3RF oxycodone 15 mg tablet 15 mg PO Q6H Qty: 90 0RF gabapentin 300 mg capsule 900 mg PO TID Qty: 270 5RF (DME) Oxygen Home Liters Per Minute See Rx Instructions .Route Qty: 1 0RF Rx Instructions: 2L at HS and portable O2 with ambulation docusate sodium 100 mg capsule 100 mg PO BID PRN (Reason: Constipation) ipratropium-albuterol 0.5 mg-3 mg(2.5 mg base)/3 mL solution for nebulization 3 ml Inhalation QID PRN (Reason: Shortness Of Breath) Qty: 180 3RF (DME) OneTouch Verio test strips Strip See Rx Instructions .ROUTE .MEDSUPPLY Qty: 100 1RF Rx Instructions: As directed - check sugars 1x each day. (DME) lancets [OneTouch Delica Lancets] 33 gauge misc See Rx Instructions .ROUTE .MEDSUPPLY Qty: 100 1RF Rx Instructions: As directed - check blood sugars 1x daily. epinephrine [EpiPen] 0.3 mg/0.3 mL auto-injector 0.3 mg IM DIRECTED PRN (Reason: Allergic Reaction) dicyclomine 20 mg tablet 20 mg PO BID PRN (Reason: abdominal discomfort) Qty: 20 0RF famotidine 40 mg tablet 40 mg PO BID PRN (Reason: Indigestion) pantoprazole [Protonix] 40 mg tablet,delayed release (DR/EC) 40 mg PO BID PRN (Reason: Acid Reflux) metformin 500 mg tablet extended release 24hr 1,000 mg PO QAM PRN (Reason: elevated BSG) Rx Instructions: take with breakfast. Trelegy Ellipta 100-62.5-25 mcg blister with device 1 inh inhalation QAM tamsulosin 0.4 mg Capsule 0.4 mg PO HS valsartan 80 mg tablet 80 mg PO QAM Discontinued metoprolol tartrate 50 mg tablet 25 mg PO BID No Action morphine 15 mg tablet extended release 15 mg PO Q12H Qty: 60 0RF Discharge Orders: Discharge Order (Routine); Ordered 08/13/23 Ordered By: Kacie Siegel Admission Data Admit Date/Time: 08/08/23 17:13 Attending Provider: Bernard Rocha Admit Provider: Bernard Rocha Primary Care Provider: Mansoor Zhao Other Providers: Johny García; Maggy Carballo; Nathaniel Lang; Luis Fernando Correia; Martin Gottlieb; Prashant Dennis; Rio Montoya; Anastasia Flaherty; Franca Khalil; Geoffrey Bourne; Ana Field; Eusebio Lepe; Jamee Lyman; Abhi Maza; Lev Alberto; Maggy Holm; Samantha Armstrong; Mansoor Kuo; Nathaniel Schulte; Jay Urban; Li Yusuf; Charmaine Jones; Terrell Joseph; Claudia Haney; Baldomero Winter; Goran Rutledge; Han Abdi; Nura Pineda; Batsheva Teran; Marilee Milton; Jose Ramon Maurer; Luis Fernando Schrader; Martin Rebollar Other Interventions: Discharge Summary Assessment (RN) Last Done: 08/13/23 09:09 Coding Level of Care Code 76657 IN/OBS DISCH 30 MIN/LESS Diagnoses History of colostomy reversal Z98.890
== END 2023-08-13 12:29 | disposition home or self-care (01) | DRG 330 ==
LOC: ASU 10:57 → 3E 17:13 → 4W 08-09 12:15 → 3N 08-11 01:52

== ENCOUNTER 2024-05-10 18:54 | Observation (INO) ==
--- NOTE | 2024-05-10 19:22 | Emergency Department Note ---
History of Present Illness General Chief complaint: Chest Pain Stated complaint: CHEST PAIN, SOB, PAIN NECK AND JAW Time Seen by Provider: 05/10/24 19:06 Source: patient, family ( was at the bedside), RN notes reviewed and old records reviewed (08/12/2020-cardiac cath which showed no significant coronary artery disease) Mode of arrival: ambulatory Limitations: no limitations History of Present Illness Maximum Pain Intensity: 8 This patient is 58-year-old male who comes in after having chest pain and shortness of breath. He said he was out weed whacking early in the morning around noon he came in and thought he was just sore initially but it has gotten worse and persistent. It is worse when he moves. Initially was 10 out of 10 he says now is 8 and half out of 10 he had some nausea he feels short of breath. He says he does not feel muscular no fall or trauma or injury. He has had chronic lower extremity edema on the right leg for a year he tells me. He does not have history of blood clots or cardiac disease but is besides diastolic heart failure. Tells me he has COPD and borderline diabetes. Home Medications Medication Instructions Recorded Confirmed Type blood sugar diagnostic ([employer] #100 ea 02/15/21 03/19/24 Rx Verio test strips) lancets 33 gauge (OneTouch Delica #100 ea 02/15/21 03/19/24 Rx Lancets) epinephrine 0.3 mg/0.3 mL 0.3 mg IM DIRECTED PRN Allergic 02/21/22 03/20/24 History injection, auto-injector (EpiPen) Reaction ipratropium 0.5 mg-albuterol 3 mg 3 ml inhalation QID PRN Shortness 10/22/22 03/20/24 Rx (2.5 mg base)/3 mL nebulization Of Breath #180 mL soln Oxygen Home #1 ea 07/17/23 03/19/24 Rx metformin 500 mg tablet,extended 1,000 mg PO QAM PRN elevated BSG 07/30/23 03/20/24 History release 24hr (osmotic) pantoprazole 40 mg tablet,delayed 40 mg PO BID PRN Acid Reflux 07/30/23 03/20/24 History release (Protonix) fluticasone fur. 100 mcg-umeclid 1 inh inhalation QAM #60 ea 10/17/23 03/20/24 Rx 62.5 mcg-vilant 25 mcg inhalat.powder (Trelegy Ellipta) albuterol sulfate 90 mcg/actuation 2 puff inhalation Q4H PRN Wheezing 11/28/23 03/20/24 Rx aerosol inhaler #8.5 grams Walking Cane #1 ea 12/06/23 03/19/24 Rx tamsulosin 0.4 mg capsule 0.4 mg PO HS #90 caps 02/19/24 03/20/24 Rx metoprolol tartrate 50 mg tablet 25 mg PO UD PRN systolic >150 03/20/24 03/20/24 History gabapentin 300 mg capsule 900 mg (3 x 300 mg) PO TID #270 03/25/24 Rx caps atorvastatin 80 mg tablet (Lipitor) 80 mg PO HS #90 tabs 04/13/24 Rx morphine 15 mg tablet,extended 15 mg PO Q12H #60 tabs 04/20/24 Rx release ergocalciferol (vitamin D2) 1,250 50,000 unit PO WEEKLY #8 caps 04/21/24 Rx mcg (50,000 unit) capsule oxycodone 15 mg tablet 15 mg PO Q6H #90 tabs 04/30/24 Rx Allergies Allergy/AdvReac Type Severity Reaction Status Date / Time bee venom protein (honey bee) Allergy Severe PASSES OUT Verified 03/20/24 12:45 naproxen Allergy Intermediate SEVERE RASH Verified 03/20/24 12:45 tramadol AdvReac Intermediate GI SYMPTOMS Verified 03/20/24 12:45 Past Med/Surg History Problem List (Updated 05/11/24 @ 01:03 by Trung Sosa MD) COPD (chronic obstructive pulmonary disease) (Acute) SOB (shortness of breath) (Acute) Chest pain (Acute) Chronic knee pain Vitamin D deficiency Hypokalemia 08/12/23 Chronic diastolic CHF (congestive heart failure) History of colostomy reversal (08/08/23) Laparoscopic Reversal Colostomy, extensive enterolysis - Bernard Rocha, Hospital discharge follow-up DVT prophylaxis Peritonitis 04/30/23 Diverticulitis of colon with perforation 04/30/23 History of colon resection (04/29/23) Exploratory Laparotomy, Sigmoid colectomy with Diverting Colostomy, Takedown enterocolonic fistula with primary Repair(Not Applicable) - Bernard Rocha, DO Encounter for pre-operative examination Diverticulitis (Acute) with colon perforation 04/25/23- admitted to [facility] - initially treated with IV abxs and fluids- s/p sigmoid colectomy with diverting colostomy 04/29/23 DM II (diabetes mellitus, type II), controlled Tobacco abuse (Acute) Disorder of intervertebral disc at C6-C7 level with radiculopathy 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 no current issues. Epigastric abdominal pain entered into EMR 12/07/22-pt denies current abdominal pain Leukocytosis (Acute) Left knee DJD Subacromial bursitis Rotator cuff tendinitis Knee effusion Right knee DJD Cervical radiculopathy Chronic obstructive pulmonary disease WEARS 2L HS (WILL WEAR DURING DAY PRN SOB) Tobacco abuse counseling Folate deficiency Chronic narcotic use Chronic hypoxemic respiratory failure DOMENICA (acute kidney injury) (Acute) 02/21/22 Pneumonia (Acute) 02/21/22 Subjective fever entered into EMR 02/21/22; pt denies current/recent fever Hypotension 02/21/22 Sensorineural hearing loss (SNHL) of both ears Bilateral tinnitus Tinnitus Decreased hearing of both ears Nocturia Edema of knee-denies other edema Chest pain 08/08/20 Renal insufficiency Dyspnea 08/08/20 Diastolic CHF, acute on chronic Grade I DD with normal EF of 65-70% on 10/29/22 ECHO Right knee pain Abnormal CT scan, chest Excessive daytime sleepiness Chronic bronchitis 11/26/19 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) Seborrheic keratosis (Chronic) Nicotine dependence (Chronic) 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 no current issues. SAUL (obstructive sleep apnea) wears 2lpm of O2 via n/c at night. Sigmoid diverticulitis hx 04/2023 -- exploratory lap with colostomy creation-with later reversal Hx of supraventricular tachycardia pt unaware [place] (hard of hearing) wears bilateral hearing aides Hx: recurrent pneumonia 2019+2020+ most recently hospitalized at [facility] in 2021. no problems since. Osteoarthritis Hypertension adjusting medications due to episodes of hypotension. Chronic CHF Chronic obstructive pulmonary disease controlled with daily inhaler-last albuterol inhaler use several days ago- average use 4-5 times monthly Hx of tinnitus History of anemia Hx of pulmonary hypertension (2019) Normal RVSP on 10/2022 ECHO Mild pulm HTN on 2019 RHC- PA pressure: 37/19 with a mean of 25 mmHg. Chronic neck pain Chronic back pain Urinary frequency at HS, reason for Flomax On home oxygen therapy O2 at night, 2lpm via n/c CAD (coronary artery disease) No angiographic evidence of CAD on 07/2020 cath-denies additional cardiac catheterizations Diabetes mellitus type 2, uncontrolled NIDDM Polyneuropathy feet bilat Hyperlipemia reports he is not currently taking statin medication daily. GERD (gastroesophageal reflux disease) controlled, stable per pt NSTEMI (non-ST elevated myocardial infarction) (~2019) NSTEMI 2019- cardiac cath showed no CAD. Surgical History History of colostomy reversal (08/08/23) History of esophagogastroduodenoscopy (EGD) History of tonsillectomy H/O exploratory laparotomy (04/29/23) with colostomy creation - r/t diverticulitis. H/O vasectomy + REVERSAL History of colonoscopy History of tooth extraction History of cholecystectomy Hx of appendectomy S/P cervical spinal fusion C4 - C6 (pt thinks) -> ROM slightly limited with numbness down the right arm. Hx of arthroscopic knee surgery Right/left H/O cardiac catheterization ~[address] [facility] -- no stents, follows with Dr Muñoz Family History Father Heart disease age 37 - "heart attack" Hypertension Brother Coronary heart disease Hypertension Aunt Breast cancer Mother Hypertension Thyroid disease Other Allergies Cancer Diabetes No family history of adverse response to anesthesia No significant family history Denies family history of Tuberculosis Ovarian cancer Prostate cancer Emphysema, unspecified Colorectal cancer Lung disease Asthma Social History Smoking Status: Current every day smoker Tobacco Type: Cigarettes Age Started Using Tobacco: 19; packs per day: 1; Cigarettes Per Day: 20 CIG DAILY> advised on policy; Second Hand Exposure: No; Do You Dip or Chew Tobacco: No; Tobacco Cessation Education Requested by Patient: No Hx Alcohol Use: Yes Alcohol type: beer Hx Substance Use: No Preferred Language: Portuguese Communication Ability: Effective Visual Impairment: No Limitations Hearing Ability: Normal Color Card Maker Required: No Beliefs That Will Affect Care: None marital status: Current Living Situation: Spouse Current Living Situation Comment: and son current occupational status: disabled Other Information That Helps Us Care for You: No Feels Safe at Home: Yes Safety Concerns: Feels Safe At This Time Childhood Exposure to Second-Hand Smoke: Yes Diet: low carbohydrate and other Diet Comment: no fiber caffeine: Yes Dental Care, Regularly: No Physical Activity Frequency: Does not Exercise Seatbelt Use: always Sunscreen Use: No Assistive Devices: Cane, Glasses and Hearing Aid - Bilateral Review of Systems A total of 10 systems reviewed and were otherwise negative Physical Exam Vital Signs Vital Signs - 24 hr 05/10/24 18:58 05/10/24 19:15 05/10/24 19:19 Temperature 36.8 C Temperature Source Temporal Artery Scan Pulse Rate 110 H 107 H Pulse Rate from SpO2 Sensor Respiratory Rate 18 Respiratory Effort / Characteristics Non-Labored Non-Labored Respiratory Depth Normal Normal Respiratory Pattern Regular Blood Pressure 131/74 Blood Pressure Mean 93 Blood Pressure Position Sitting Pulse Oximetry 92 Oxygen Delivery Method Room Air Sepsis Recent Fever Within 48 Hours No Sepsis New/Unexplained Change in Mental Status No Sepsis Action Taken by Nursing No Action Required 05/10/24 19:21 05/10/24 19:30 05/10/24 20:00 Temperature Temperature Source Pulse Rate 104 H 105 H 106 H Pulse Rate from SpO2 Sensor Respiratory Rate 20 18 20 Respiratory Effort / Characteristics Respiratory Depth Respiratory Pattern Blood Pressure 155/90 H 143/92 H 120/80 Blood Pressure Mean 111 109 90 Blood Pressure Position Pulse Oximetry 92 93 90 Oxygen Delivery Method Room Air Room Air Room Air Sepsis Recent Fever Within 48 Hours Sepsis New/Unexplained Change in Mental Status Sepsis Action Taken by Nursing 05/10/24 20:12 05/10/24 20:25 05/10/24 20:36 Temperature Temperature Source Pulse Rate 102 H 94 H 101 H Pulse Rate from SpO2 Sensor 102 H 101 H Respiratory Rate 22 22 Respiratory Effort / Characteristics Respiratory Depth Respiratory Pattern Blood Pressure 120/80 133/87 Blood Pressure Mean 93 102 Blood Pressure Position Pulse Oximetry 90 91 Oxygen Delivery Method Room Air Room Air Sepsis Recent Fever Within 48 Hours Sepsis New/Unexplained Change in Mental Status Sepsis Action Taken by Nursing General: Well developed well nourished [id number] middle-age male who appears in no acute distress, breathing comfortably on room air. Normal speech HEENT: Normal cephalic atraumatic. Pupils are equal round and reactive to light. Extraocular movements are intact. Oropharynx is pink with moist mucous membranes. No swelling of the mouth lips or tongue. Neck: Supple with a midline trachea. No meningeal signs or stiffness, no JVD or bruits. No Stridor. Chest: Clear to auscultation bilaterally. No wheezes or rhonchi. No increased work of breathing. Heart: Regular rate and rhythm without murmurs or gallops. Not reproducibly tender Abdomen: Soft nontender, nondistended without rebound guarding or rigidity. Extremities: No cyanosis clubbing or edema. No calf tenderness or assymetry Spine/Back. Non tender to palpation. No CVA tenderness Skin: Good turgor without rashes. Not diaphoretic. Neurologic exam: Cranial nerves two through 12 are intact. Motor and sensation are intact and symmetrical throughout. Course Administered Medications Atorvastatin Calcium (Atorvastatin 40 Mg Tab) 80 mg PO HS ERIN Stop: 06/09/24 21:53 Last Admin: 05/10/24 22:42 Dose: 80 mg Documented By: DUANE Gabapentin (Gabapentin 300 Mg Cap) 900 mg PO TID ERIN Stop: 06/09/24 21:53 Last Admin: 05/10/24 22:42 Dose: 900 mg Documented By: DUANE Insulin Aspart (Insulin Aspart Per Unit Charge) 0 units SC ACHS ERIN Stop: 06/09/24 21:53 Last Admin: 05/10/24 22:19 Dose: Not Given Documented By: DUANE Morphine Sulfate (Morphine Sulfate Cr 15 Mg Tabcr) 15 mg PO BID ERIN Stop: 05/24/24 22:29 Last Admin: 05/10/24 22:49 Dose: 15 mg Documented By: DUANE Oxycodone HCl (Oxycodone Hcl Ir 5 Mg Tab (Immediate Release)) 15 mg PO Q6 ERIN Stop: 05/24/24 22:29 Last Admin: 05/10/24 22:49 Dose: 15 mg Documented By: DUANE Pantoprazole Sodium (Pantoprazole 40 Mg Tab) 40 mg PO BID ERIN Stop: 06/09/24 21:53 Last Admin: 05/10/24 22:42 Dose: 40 mg Documented By: DUANE Tamsulosin HCl (Tamsulosin Hcl 0.4 Mg Cap) 0.4 mg PO HS ERIN Stop: 06/09/24 21:53 Last Admin: 05/10/24 22:42 Dose: 0.4 mg Documented By: DUANE Discontinued Medications Aspirin (Aspirin 81 Mg Chew) 324 mg PO NOW STA Stop: 05/10/24 19:25 Last Admin: 05/10/24 19:30 Dose: 324 mg Documented By: [facility] [place] Nitroglycerin (Nitroglycerin Sl 0.4 Mg/Tab Tab) 0.4 mg SL NOW STA Stop: 05/10/24 19:25 Last Admin: 05/10/24 19:29 Dose: 0.4 mg Documented By: [facility] [place] Nitroglycerin (Nitroglycerin Sl 0.4 Mg/Tab Tab) 0.4 mg SL NOW STA Stop: 05/10/24 19:50 Last Admin: 05/10/24 19:57 Dose: 0.4 mg Documented By: [facility] [place] Medical Decision Making Differential Diagnosis Acute coronary syndrome, arrhythmia, COPD, pneumothorax, pneumonia, aortic pathology, PE, GERD, musculoskeletal, CHF or valvular heart disease Medical Records Attestation: I reviewed the patient's medical records. Home Medications Current Medication List: was personally reviewed by me Laboratory Data Attestation: I reviewed the patient's lab results. 05/10/24 19:22 05/10/24 21:22 Lab Results 05/10/24 Range/Units 19:22 WBC 16.05 H (4.8-10.8) K/ul RBC 4.09 L (4.70-6.10) M/uL Hgb 12.8 L (14.0-18.0) g/dl Hct 38.4 L (42.0-52.0) % MCV 93.9 (80.0-100.0) fL MCH 31.3 (25.0-34.0) pg MCHC 33.3 (32.0-36.0) g/dL RDW Std Deviation 48.1 H (36.4-46.3) fL RDW Coeff of Liliya 14.0 (11.5-14.5) % Plt Count 322 (130-400) K/uL MPV 9.6 (9.4-12.4) fL Immature Gran % (Auto) 0.6 % Neut % (Auto) 69.3 % Lymph % (Auto) 20.6 % Dickenson % (Auto) 8.3 % Eos % (Auto) 1.0 % Baso % (Auto) 0.2 % Neut # (Auto) 11.12 H (1.40-6.50) K/uL Lymph # (Auto) 3.31 (1.20-3.40) K/uL Dickenson # (Auto) 1.33 H (0.11-0.59) K/uL Eos # (Auto) 0.16 (0.00-0.50) K/uL Baso # (Auto) 0.04 (0.00-0.20) K/uL Immature Gran # (Auto) 0.09 (0.01-0.20) K/uL APTT 26 (21-31) Seconds PTT Ratio 1.0 D-Dimer 610 H* (0-500) ug/L FEU Sodium 135 L (136-145) mmol/L Potassium TNP Chloride 101 (98-107) mmol/L Carbon Dioxide 26 (21-32) mmol/L Anion Gap 8 (3-11) BUN 12 (6-23) mg/dl Creatinine 1.02 (0.6-1.4) mg/dl Est Cr Clr Drug Dosing 82.3 ml/min Est GFR ( Amer) 92.2 ml/min Est GFR (Non-Af Amer) 79.5 ml/min BUN/Creatinine Ratio 11.8 (10-20) Glucose 122 H (70-99(Fasting)) mg/dl Calcium 9.5 (8.6-10.3) mg/dl Total Bilirubin 0.3 (0.2-1.0) mg/dl AST TNP ALT 14 (7-52) U/L Alkaline Phosphatase 93 (34-104) U/L Troponin I High Sens 8.6 (0-20) pg/ml B-Natriuretic Peptide 27 (0-100) pg/ml Total Protein 7.4 (6.0-8.3) gm/dl Albumin 4.4 (3.4-5.0) gm/dl Globulin 3.0 (2.5-4.0) gm/dl Albumin/Globulin Ratio 1.5 (0.9-2) Lipase 15 (11-82) U/L Imaging Data Attestation: I personally reviewed and interpreted this imaging study as follows: My Impression: Chest x-rayno focal infiltrates or pneumothorax there may be some mild increased interstitial markings and a CHF component. This is per my independent interpretation ECG Data Attestation: I personally reviewed and interpreted this ECG as follows: Indication: + chest pain Rate (beats per minute): 110 Rhythm: + sinus tachycardia and + other (Poor baseline) ECG Intervals/blocks: + Normal QRS, + Normal QT and + Normal OH ECG [place]: + Normal ECG ST segments: + Normal ST segments ECG Findings: no PACs or no PVCs Comparison ECG Date: from (04/14/2024) Change: no significant change (The rate has increased otherwise mention) MDM Narrative This patient comes in as described above he had chest pain shortness of breath which started several hours ago after weed whacking. He looks well he is nondiaphoretic. His initial EKG shows no ischemic changes was placed on a hvac installation technician in room C1 multiple blood testing was obtained including cardiac biomarkers and D-dimer chest x-ray was also ordered he was reassessed frequently. I did give him aspirin 324 mg chewable he tells me he has done well with aspirin for has no reason he cannot take aspirin despite having a Naprosyn allergy. I also ordered sublingual nitroglycerin he said he felt a lot better. His pain went to for a order second sublingual nitroglycerin. His pain went completely away after second sublingual nitroglycerin. Patient also troponin is unremarkable. He has no significant electrolyte or metabolic abnormalities. His D-dimer is minimally elevated , I do not think he likely has a PE. Chest x- ray shows a possible CHF component I do think he needs to be admitted/observed as discussed case with Dr. Tran who saw the patient in the ER and will admit/observe him for these measures. Continuous cardiac monitoring: Orders placed in EMR for continuous hvac installation technician call upon my evaluation patient noted to be in sinus tachycardia with a rate of 105 Impression & Plan Chest pain, SOB (shortness of breath), COPD (chronic obstructive pulmonary disease), Tobacco abuse Discharge Plan Visit Data Chief Complaint: Chest Pain Stated Complaint: CHEST PAIN, SOB, PAIN NECK AND JAW ED Provider: Trung Sosa Discharge Problem: Chest pain, SOB (shortness of breath), COPD (chronic obstructive pulmonary disease), Tobacco abuse Patient Disposition: Admitted As Inpatient Discharge Instructions Interventions: ED Discharge Assessment Last Done: 05/10/24 21:32 Discharge Problem: Chest pain Qualifiers: Chest pain type: precordial pain Qualified Code(s): R07.2 - Precordial pain COPD (chronic obstructive pulmonary disease) Qualifiers: COPD type: unspecified COPD Qualified Code(s): J44.9 - Chronic obstructive pulmonary disease, unspecified
[2024-05-10] MEDS: NITROGLYCERIN SL 0.4 MG/TAB TAB SL STA ×2 (19:29→19:57)
[2024-05-10] MEDS: ASPIRIN 81 MG CHEW PO STA (19:30)
[2024-05-10 19:36] LABS: Basophils # (auto) 0.04 K/uL (0.00-0.20); Basophils % (auto) 0.2 %; Eosinophils # (auto) 0.16 K/uL (0.00-0.50); Hematocrit (blood only) 38.4 % (42.0-52.0); Hemoglobin 12.8 g/dl (14.0-18.0); Immature Granulocytes # (auto) 0.09 K/uL (0.01-0.20); Immature Granulocytes % (auto) 0.6 %; Lymphocytes # (auto) 3.31 K/uL (1.20-3.40); Lymphocytes % (auto) 20.6 %; Mean Corpuscular Hemoglobin 31.3 pg (25.0-34.0); Mean Corpuscular Hgb Conc 33.3 g/dL (32.0-36.0); Mean Corpuscular Volume 93.9 fL (80.0-100.0); Mean Platelet Volume 9.6 fL (9.4-12.4); Monocytes # (auto) 1.33 K/uL (0.11-0.59); Monocytes % (auto) 8.3 %; Neutrophils # (auto) 11.12 K/uL (1.40-6.50); Neutrophils % (auto) 69.3 %; Platelet Count 322 K/uL (130-400); RDW Standard Deviation 48.1 fL (36.4-46.3); Red Blood Count 4.09 M/uL (4.70-6.10); White Blood Count 16.05 K/ul (4.8-10.8)
[2024-05-10 19:58] LABS: Alanine Aminotransferase 14 U/L (7-52); Albumin Globulin Ratio 1.5 (0.9-2); Albumin Level 4.4 gm/dl (3.4-5.0); Alkaline Phosphatase 93 U/L (34-104); Anion Gap 8 (3-11); BUN Creatinine Ratio 11.8 (10-20); Bilirubin,Total 0.3 mg/dl (0.2-1.0); Blood Urea Nitrogen 12 mg/dl (6-23); Calcium 9.5 mg/dl (8.6-10.3); Carbon Dioxide 26 mmol/L (21-32); Chloride 101 mmol/L (98-107); Creatinine Clr Calc Pharmacy 82.3 ml/min; Est GFR (African American) 92.2 ml/min; Est GFR (Non-African American) 79.5 ml/min; Glucose 122 mg/dl (70-99(Fasting)); Lipase 15 U/L (11-82); Sodium 135 mmol/L (136-145); Total Protein 7.4 gm/dl (6.0-8.3)
[2024-05-10 20:05] LABS: Troponin I High Sensitivity 8.6 pg/ml (0-20)
[2024-05-10 20:28] LABS: Partial Thromboplastin Time 26 Seconds (21-31)
[2024-05-10 20:34] LABS: D Dimer 610 ug/L FEU (0-500)
--- NOTE | 2024-05-10 20:55 | History & Physical Report ---
Date of Service May 10, 2024 Assessment & Plan (1) Chest pain: (2) SOB (shortness of breath): (3) Chronic diastolic CHF (congestive heart failure): (4) Tobacco abuse: (5) Chronic obstructive pulmonary disease: (6) Chronic knee pain: (7) Vitamin D deficiency: (8) DM II (diabetes mellitus, type II), controlled: (9) Disorder of intervertebral disc at C6-C7 level with radiculopathy: (10) Cervical radiculopathy: (11) Stomach ulcer: (12) Duodenitis: (13) Chronic pain syndrome: (14) Lumbar radiculopathy: Plan Exertional chest pain/hypertension/chronic diastolic CHF- The patient will be admitted to telemetry for serial cardiac enzymes, serial EKG's, cardiac rhythm monitoring and a 2-D echocardiogram with Dopplers. Patient reports on and off chest pain over the past couple months, but today's episode following weed whacking outside was worse in intensity and duration, ultimately relieved by aspirin and sublingual at a question in the ED Negative cardiac catheterization on 08/12/2020 Aspirin 81 mg every morning, monitoring closely for history of gastric ulcer Likely aggravated in part by continued tobacco abuse If cardiac workup is negative, he will need a stress echocardiogram prior to discharge COPD exacerbation with hypoxia/tobacco abuse- Pulse ox 90% on room air in the ED Nasal cannula 2 L oxygen, titrate to keep pulse ox around 94% Tobacco cessation counseling Continue Trelegy Ellipta every morning DuoNebs every 2 hours as needed Chronic pain syndrome/cervical radiculopathy with history of CAD 6-7 cervical fusion/lumbar radiculopathy status post injury 2005- Continue usual pain medications: Oxycodone 15 mg p.o. every 6 hours, morphine extended release 15 mg p.o. every 2 hours Continue duloxetine 60 mg p.o. every morning Diabetes mellitus- Hold metformin Placed on Accu-Cheks with NovoLog SSI Hyperlipidemia- Continue atorvastatin 80 mg at bedtime History of Present Illness Chief Complaint: The patient presents to the emergency department with complaint of off-and-on exertional chest pain over the past few months, that worsened considerably when he was out doors weed whacking earlier in the day today. He reports that he presents to the ED because the pain was worse in intensity and duration, not improving with rest as it had in the past. His pain did improve in the emergency department when he received aspirin and sublingual nitroglycerin. Primary Care Provider: Mansoor Zhao MD The patient is a 58-year-old male with past medical history including vitamin D deficiency, chronic diastolic CHF, history of colostomy reversal on 08/08/2023, peritonitis, colon diverticulitis with perforation, history of colon resection, diabetes mellitus type 2, ongoing tobacco abuse, C6-7 cervical fusion history, hypertension, duodenitis, stomach ulcer, COPD, chronic hypoxemic respiratory failure with 2 L nasal cannula oxygen with activity, SNHL bilaterally, gait disturbance, chronic pain syndrome, history of SVT, and lumbar radiculopathy. He presents to the emergency department with exertional chest discomfort for the past 2 months, worsened significantly in intensity and duration this afternoon while weed whacking, relieved by sublingual nitroglycerin and aspirin in the ED. Of note, patient is scheduled to have a right TKA to be performed by Dr. Fernandez on May 18 Allergies Allergy/AdvReac Type Severity Reaction Status Date / Time bee venom protein (honey bee) Allergy Severe PASSES OUT Verified 03/20/24 12:45 naproxen Allergy Intermediate SEVERE RASH Verified 03/20/24 12:45 tramadol AdvReac Intermediate GI SYMPTOMS Verified 03/20/24 12:45 Home Medications Medication Instructions Recorded Confirmed Type blood sugar diagnostic (OneTouch #100 ea 02/15/21 03/19/24 Rx Verio test strips) lancets 33 gauge (OneTouch Delica #100 ea 02/15/21 03/19/24 Rx Lancets) epinephrine 0.3 mg/0.3 mL 0.3 mg IM DIRECTED PRN Allergic 02/21/22 03/20/24 History injection, auto-injector (EpiPen) Reaction ipratropium 0.5 mg-albuterol 3 mg 3 ml inhalation QID PRN Shortness 10/22/22 03/20/24 Rx (2.5 mg base)/3 mL nebulization Of Breath #180 mL soln Oxygen Home #1 ea 07/17/23 03/19/24 Rx metformin 500 mg tablet,extended 1,000 mg PO QAM PRN elevated BSG 07/30/23 03/20/24 History release 24hr (osmotic) pantoprazole 40 mg tablet,delayed 40 mg PO BID PRN Acid Reflux 07/30/23 03/20/24 History release (Protonix) fluticasone fur. 100 mcg-umeclid 1 inh inhalation QAM #60 ea 10/17/23 03/20/24 Rx 62.5 mcg-vilant 25 mcg inhalat.powder (Trelegy Ellipta) albuterol sulfate 90 mcg/actuation 2 puff inhalation Q4H PRN Wheezing 11/28/23 03/20/24 Rx aerosol inhaler #8.5 grams Walking Cane #1 ea 12/06/23 03/19/24 Rx tamsulosin 0.4 mg capsule 0.4 mg PO HS #90 caps 02/19/24 03/20/24 Rx metoprolol tartrate 50 mg tablet 25 mg PO UD PRN systolic >150 03/20/24 03/20/24 History gabapentin 300 mg capsule 900 mg (3 x 300 mg) PO TID #270 03/25/24 Rx caps atorvastatin 80 mg tablet (Lipitor) 80 mg PO HS #90 tabs 04/13/24 Rx morphine 15 mg tablet,extended 15 mg PO Q12H #60 tabs 04/20/24 Rx release ergocalciferol (vitamin D2) 1,250 50,000 unit PO WEEKLY #8 caps 04/21/24 Rx mcg (50,000 unit) capsule oxycodone 15 mg tablet 15 mg PO Q6H #90 tabs 04/30/24 Rx Past Med/Surg History Problem List (Updated 05/10/24 @ 19:22 by Trung Sosa MD) SOB (shortness of breath) (Acute) Chest pain (Acute) Chronic knee pain Vitamin D deficiency Hypokalemia 08/12/23 Chronic diastolic CHF (congestive heart failure) History of colostomy reversal (08/08/23) Laparoscopic Reversal Colostomy, extensive enterolysis - Bernard Rocha DO Hospital discharge follow-up DVT prophylaxis Peritonitis 04/30/23 Diverticulitis of colon with perforation 04/30/23 History of colon resection (04/29/23) Exploratory Laparotomy, Sigmoid colectomy with Diverting Colostomy, Takedown enterocolonic fistula with primary Repair(Not Applicable) - Bernard Rocha DO Encounter for pre-operative examination Diverticulitis (Acute) with colon perforation 04/25/23- admitted to [facility] - initially treated with IV abxs and fluids- s/p sigmoid colectomy with diverting colostomy 04/29/23 DM II (diabetes mellitus, type II), controlled Tobacco abuse Disorder of intervertebral disc at C6-C7 level with radiculopathy 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 no current issues. Epigastric abdominal pain entered into EMR 12/07/22-pt denies current abdominal pain Leukocytosis (Acute) Left knee DJD Subacromial bursitis Rotator cuff tendinitis Knee effusion Right knee DJD Cervical radiculopathy Chronic obstructive pulmonary disease WEARS 2L HS (WILL WEAR DURING DAY PRN SOB) Tobacco abuse counseling Folate deficiency Chronic narcotic use Chronic hypoxemic respiratory failure DOMENICA (acute kidney injury) (Acute) 02/21/22 Pneumonia (Acute) 02/21/22 Subjective fever entered into EMR 02/21/22; pt denies current/recent fever Hypotension 02/21/22 Sensorineural hearing loss (SNHL) of both ears Bilateral tinnitus Tinnitus Decreased hearing of both ears Nocturia Edema of knee-denies other edema Chest pain 08/08/20 Renal insufficiency Dyspnea 08/08/20 Diastolic CHF, acute on chronic Grade I DD with normal EF of 65-70% on 10/29/22 ECHO Right knee pain Abnormal CT scan, chest Excessive daytime sleepiness Chronic bronchitis 11/26/19 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) Seborrheic keratosis (Chronic) Nicotine dependence (Chronic) 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 no current issues. SAUL (obstructive sleep apnea) wears 2lpm of O2 via n/c at night. Sigmoid diverticulitis hx 04/2023 -- exploratory lap with colostomy creation-with later reversal Hx of supraventricular tachycardia pt unaware [place] (hard of hearing) wears bilateral hearing aides Hx: recurrent pneumonia 2019+2020+ most recently hospitalized at [facility] in 2021. no problems since. Osteoarthritis Hypertension adjusting medications due to episodes of hypotension. Chronic CHF Chronic obstructive pulmonary disease controlled with daily inhaler-last albuterol inhaler use several days ago- average use 4-5 times monthly Hx of tinnitus History of anemia Hx of pulmonary hypertension (2019) Normal RVSP on 10/2022 ECHO Mild pulm HTN on 2019 RHC- PA pressure: 37/19 with a mean of 25 mmHg. Chronic neck pain Chronic back pain Urinary frequency at HS, reason for Flomax On home oxygen therapy O2 at night, 2lpm via n/c CAD (coronary artery disease) No angiographic evidence of CAD on 07/2020 cath-denies additional cardiac catheterizations Diabetes mellitus type 2, uncontrolled NIDDM Polyneuropathy feet bilat Hyperlipemia reports he is not currently taking statin medication daily. GERD (gastroesophageal reflux disease) controlled, stable per pt NSTEMI (non-ST elevated myocardial infarction) (~2019) NSTEMI 2019- cardiac cath showed no CAD. Surgical History History of colostomy reversal (08/08/23) History of esophagogastroduodenoscopy (EGD) History of tonsillectomy H/O exploratory laparotomy (04/29/23) with colostomy creation - r/t diverticulitis. H/O vasectomy + REVERSAL History of colonoscopy History of tooth extraction History of cholecystectomy Hx of appendectomy S/P cervical spinal fusion C4 - C6 (pt thinks) -> ROM slightly limited with numbness down the right arm. Hx of arthroscopic knee surgery Right/left H/O cardiac catheterization ~2019 at [facility] -- no stents, follows with Dr Muñoz Family History Father Heart disease age 37 - "heart attack" Hypertension Brother Coronary heart disease Hypertension Aunt Breast cancer Mother Hypertension Thyroid disease Other Allergies Cancer Diabetes No family history of adverse response to anesthesia No significant family history Denies family history of Tuberculosis Ovarian cancer Prostate cancer Emphysema, unspecified Colorectal cancer Lung disease Asthma Social History Smoking Status: Current every day smoker Tobacco Type: Cigarettes Age Started Using Tobacco: 19; packs per day: 1; Cigarettes Per Day: 20 CIG DAILY> advised on policy; Second Hand Exposure: No; Do You Dip or Chew Tobacco: No; Hx Alcohol Use: Yes Alcohol type: beer Hx Substance Use: No Preferred Language: Luxembourgish Communication Ability: Effective Visual Impairment: No Limitations Hearing Ability: Normal 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 Beliefs That Will Affect Care: None marital status: Current Living Situation: Spouse Current Living Situation Comment: and son current occupational status: disabled Feels Safe at Home: Yes Childhood Exposure to Second-Hand Smoke: Yes Diet: low carbohydrate and other Diet Comment: no fiber caffeine: Yes Dental Care, Regularly: No Physical Activity Frequency: Does not Exercise Seatbelt Use: always Sunscreen Use: No Assistive Devices: Cane, Glasses and Hearing Aid - Bilateral Review of Systems Review of Systems: The patient denies palpitations, cough, lower extremity swelling, sore throat, fevers, chills, sweats, weight change, fatigue, nausea, vomiting, diarrhea , constipation, abdominal pain, pelvic pain, blood in urine or stool, dysuria, urinary frequency or urgency, lightheadedness, dizziness, headache, memory loss, loss of consciousness, rash, abnormal bruising or bleeding, imbalance, focal or generalized weakness, numbness or tingling in legs, or night sweats. The review of systems is otherwise negative other than for that already noted above, and at least 10 systems have been reviewed. Physical Exam Physical Exam: The patient is awake, alert and oriented 3, well developed and well nourished, normocephalic and atraumatic, lying in bed and in no acute distress. HEENT--PERRL, EOMI, mucous membranes and oropharynx dry. Neck--supple. No JVD. No bruits. Thyroid normal, trachea midline, no adenopathy. Heart--normal S1 and S2. No murmurs, rubs or gallops. Lungs--Decreased breath sounds throughout. No respiratory distress, no accessory muscle use. Abdomen--normal bowel sounds and soft. Nontender. Nondistended, no hernias or masses, no organomegaly. Extremities--No edema. Dermatologic--normal skin turgor, normal color, no abnormal lymph nodes, no rash. Neurologic--cranial nerves II through XII grossly intact. Rheumatologic--normal range of motion. Psychiatric--normal affect. Results & Data Results & Data Vital Signs (Past 12 Hours) Vital Signs Temp Pulse Resp BP Pulse Ox O2 Del Method 05/10/24 20:00 106 H 20 120/80 90 Room Air 05/10/24 19:30 105 H 18 143/92 H 93 Room Air 05/10/24 19:21 104 H 20 155/90 H 92 Room Air 05/10/24 19:19 107 H 05/10/24 18:58 36.8 C 110 H 18 131/74 92 Room Air Laboratory Results Laboratory Results WBC 16.05 K/ul (4.8-10.8) H 05/10/24 19:22 RBC 4.09 M/uL (4.70-6.10) L 05/10/24 19:22 Hgb 12.8 g/dl (14.0-18.0) L 05/10/24 19:22 Hct 38.4 % (42.0-52.0) L 05/10/24 19:22 MCV 93.9 fL (80.0-100.0) 05/10/24 19:22 MCH 31.3 pg (25.0-34.0) 05/10/24 19:22 MCHC 33.3 g/dL (32.0-36.0) 05/10/24 19:22 RDW Std Deviation 48.1 fL (36.4-46.3) H 05/10/24 19:22 RDW Coeff of Liliya 14.0 % (11.5-14.5) 05/10/24 19:22 Plt Count 322 K/uL (130-400) 05/10/24 19:22 MPV 9.6 fL (9.4-12.4) 05/10/24 19:22 Immature Gran % (Auto) 0.6 % 05/10/24 19:22 Neut % (Auto) 69.3 % 05/10/24 19:22 Lymph % (Auto) 20.6 % 05/10/24 19:22 [place] % (Auto) 8.3 % 05/10/24 19:22 Eos % (Auto) 1.0 % 05/10/24 19:22 Baso % (Auto) 0.2 % 05/10/24 19:22 Neut # (Auto) 11.12 K/uL (1.40-6.50) H 05/10/24 19:22 Lymph # (Auto) 3.31 K/uL (1.20-3.40) 05/10/24 19:22 [place] # (Auto) 1.33 K/uL (0.11-0.59) H 05/10/24 19:22 Eos # (Auto) 0.16 K/uL (0.00-0.50) 05/10/24 19:22 Baso # (Auto) 0.04 K/uL (0.00-0.20) 05/10/24 19:22 Immature Gran # (Auto) 0.09 K/uL (0.01-0.20) 05/10/24 19:22 APTT 26 Seconds (21-31) 05/10/24 19:22 PTT Ratio 1.0 05/10/24 19:22 D-Dimer 610 ug/L FEU (0-500) H* 05/10/24 19:22 Sodium 135 mmol/L (136-145) L 05/10/24 19:22 Potassium 4.5 mmol/L (3.5-5.1) 05/10/24 21:22 Chloride 101 mmol/L (98-107) 05/10/24 19:22 Carbon Dioxide 26 mmol/L (21-32) 05/10/24 19:22 Anion Gap 8 (3-11) 05/10/24 19:22 BUN 12 mg/dl (6-23) 05/10/24 19:22 Creatinine 1.02 mg/dl (0.6-1.4) 05/10/24 19:22 Est Cr Clr Drug Dosing 82.3 ml/min 05/10/24 19:22 Est GFR ( Amer) 92.2 ml/min 05/10/24 19:22 Est GFR (Non-Af Amer) 79.5 ml/min 05/10/24 19:22 BUN/Creatinine Ratio 11.8 (10-20) 05/10/24 19:22 Glucose 122 mg/dl (70-99(Fasting)) H 05/10/24 19:22 Calcium 9.5 mg/dl (8.6-10.3) 05/10/24 19:22 Magnesium 2.1 mg/dl (1.7-2.4) 05/10/24 21:22 Total Bilirubin 0.3 mg/dl (0.2-1.0) 05/10/24 19:22 AST 14 U/L (13-39) 05/10/24 21:22 ALT 14 U/L (7-52) 05/10/24 19:22 Alkaline Phosphatase 93 U/L (34-104) 05/10/24 19:22 Troponin I High Sens 8.6 pg/ml (0-20) 05/10/24 19:22 B-Natriuretic Peptide 27 pg/ml (0-100) 05/10/24 19:22 Total Protein 7.4 gm/dl (6.0-8.3) 05/10/24 19:22 Albumin 4.4 gm/dl (3.4-5.0) 05/10/24 19:22 Globulin 3.0 gm/dl (2.5-4.0) 05/10/24 19:22 Albumin/Globulin Ratio 1.5 (0.9-2) 05/10/24 19:22 Lipase 15 U/L (11-82) 05/10/24 19:22 Code Status & VTE Plan Code Status Full code VTE Prophylaxis Plan VTE Prophylaxis will be ordered: Yes PG Care Time/CCT Total # of Minutes Spent Total Time Spent with Patient: Total time spent is greater than 50% in coordination of care (as documented) at patient's floor/unit and/or counseling patient: Coding Level of Care Code 74045 INT INP/OBS CARE 3/75MIN Diagnoses Chest pain R07.9 SOB (shortness of breath) R06.02 Chronic diastolic CHF (congestive heart failure) I50.32 Tobacco abuse Z72.0 Chronic obstructive pulmonary disease J44.9 Chronic knee pain M25.569; G89.29 Vitamin D deficiency E55.9 DM II (diabetes mellitus, type II), controlled E11.9 Disorder of intervertebral disc at C6-C7 level with radiculopathy M50.123 Cervical radiculopathy M54.12 Stomach ulcer K25.9 Duodenitis K29.80 Chronic pain syndrome G89.4 Lumbar radiculopathy M54.16
[2024-05-10] MEDS ORDERED: ALBUT/IPRATROP 3MG/0.5MG NEB 3 ML VIAL INH PRN (21:54)
[2024-05-10] MEDS ORDERED: NITROGLYCERIN SL 0.4 MG/TAB TAB SL PRN (21:54)
[2024-05-10] MEDS ORDERED: ONDANSETRON INJ 2 MG/ML 2 ML VIAL IV PRN (21:54)
[2024-05-10] MEDS ORDERED: ALBUTEROL HFA 8 GM INHALER INH PRN (21:54)
[2024-05-10] MEDS ORDERED: GLUCAGON FOR INJ 1 MG VIAL SQ PRN (21:54)
[2024-05-10] MEDS ORDERED: GLUCOSE 40% GEL 15 GM TUBE PO PRN (21:54)
[2024-05-10] MEDS ORDERED: ACETAMINOPHEN 325 MG TAB PO PRN (21:54)
[2024-05-10] MEDS ORDERED: DICYCLOMINE HCL 20 MG TAB PO PRN (21:54)
[2024-05-10] MEDS ORDERED: CARBOHYDRATES FOR HYPOGLYCEMIA PO PRN (21:54)
[2024-05-10] MEDS ORDERED: GLUCOSE 10 TAB/TUBE PO PRN (21:54)
[2024-05-10] MEDS ORDERED: DEXTROSE 50% 50 ML SYRINGE IV PRN (21:54)
[2024-05-10 21:55] LABS: Magnesium 2.1 mg/dl (1.7-2.4); Potassium 4.5 mmol/L (3.5-5.1)
[2024-05-10] MEDS: INSULIN ASPART PER UNIT CHARGE SC SCH (22:19)
[2024-05-10] MEDS: TAMSULOSIN HCL 0.4 MG CAP PO SCH (22:42)
[2024-05-10] MEDS: GABAPENTIN 300 MG CAP PO SCH (22:42)
[2024-05-10] MEDS: PANTOprazole 40 MG TAB PO SCH (22:42)
[2024-05-10] MEDS: ATORVASTATIN 40 MG TAB PO SCH (22:42)
[2024-05-10] MEDS: oxyCODONE HCL IR 5 MG TAB (IMMEDIATE RELEASE) PO SCH (22:49)
[2024-05-10] MEDS: MoRPHine SULFATE CR 15 MG TABCR PO SCH (22:49)
--- NOTE | 2024-05-11 07:04 | XRay Report ---
XR chest 1V portable HISTORY: Chest pain, nonspecific COMPARISON: Chest 08/11/2023. FINDINGS: No pneumothorax. No pleural effusions. No focal lung consolidations to suggest a pneumonia. No evidence for pulmonary edema. The heart is normal in size. No acute fractures. Left basilar linea r density has improved and favors resolving atelectasis. Emphysema again noted. IMPRESSION: Emphysema. No acute process within the chest. ACT 112: Negative or not required by law. Electronically signed by: Jay Harrison M.D. 05/11/2024 7:03 AM
[2024-05-11 07:59] LABS: Basophils # (auto) 0.05 K/uL (0.00-0.20); Basophils % (auto) 0.6 %; Eosinophils # (auto) 0.27 K/uL (0.00-0.50); Eosinophils % (auto) 3.3 %; Hemoglobin 11.5 g/dl (14.0-18.0); Immature Granulocytes # (auto) 0.03 K/uL (0.01-0.20); Immature Granulocytes % (auto) 0.4 %; Lymphocytes # (auto) 3.64 K/uL (1.20-3.40); Lymphocytes % (auto) 44.1 %; Mean Corpuscular Hemoglobin 30.7 pg (25.0-34.0); Mean Corpuscular Hgb Conc 32.9 g/dL (32.0-36.0); Mean Corpuscular Volume 93.3 fL (80.0-100.0); Mean Platelet Volume 9.6 fL (9.4-12.4); Monocytes # (auto) 0.79 K/uL (0.11-0.59); Monocytes % (auto) 9.6 %; Neutrophils # (auto) 3.47 K/uL (1.40-6.50); Platelet Count 291 K/uL (130-400); RDW Coefficient of Variation 14.2 % (11.5-14.5); RDW Standard Deviation 48.4 fL (36.4-46.3); Red Blood Count 3.75 M/uL (4.70-6.10); White Blood Count 8.25 K/ul (4.8-10.8)
[2024-05-11] MEDS: DULoxetine HCL 60 MG CAP PO SCH (08:07)
[2024-05-11] MEDS: FLUTICASONE FUROATE 100MCG 14 PUFFS/INHALER INH SCH (08:08)
[2024-05-11] MEDS: UMECLIDINIUM/VILANTEROL 62.5/25MCG 7 PUFFS/INHALER INH SCH (08:09)
[2024-05-11 08:27] LABS: Albumin Level 3.9 gm/dl (3.4-5.0); Calcium 8.6 mg/dl (8.6-10.3); Potassium 4.2 mmol/L (3.5-5.1)
[2024-05-11 08:33] LABS: BUN Creatinine Ratio 16.3 (10-20); Creatinine Clr Calc Pharmacy 102.7 ml/min; Est GFR (African American) 112.5 ml/min; Est GFR (Non-African American) 97.1 ml/min; Phosphorus 4.1 mg/dl (2.5-4.9)
[2024-05-11 08:42] LABS: Estimated Average Glucose 134 mg/dl; Hemoglobin A1C 6.3 % (4.5-5.6)
[2024-05-11 08:54] LABS: Troponin I High Sensitivity 4.9 pg/ml (0-20)
[2024-05-11] MEDS ORDERED: NON-FORMULARY MEDICATION (Fluticasone-Umeclidin-Vilanter [Trelegy Ellipta] 100-62.5-25 mcg INH SCH (09:00)
--- NOTE | 2024-05-11 12:36 | XCELERA ---
[id number]
--- NOTE | 2024-05-11 13:53 | Cardiology Consultation ---
Date of Consultation May 11, 2024 Assessment & Plan (1) Atypical chest pain: (2) Hypertension: (3) Dyslipidemia: Plan ASSESSMENT/PLAN: 1. Atypical chest pain: Prolonged chest pain for at least 7 hours with normal high-sensitivity troponin x 2, unremarkable ECG, and normal wall motion on echo. Has had 4 cardiac catheterizations without significant CAD, the most recent 4 years ago. Do not recommend cardiac catheterization. Chest pain does not appear consistent with ischemic heart disease but given multiple risk factors, dobutamine stress echo ordered. He is unable to exercise on a treadmill. 2. Hypertension: Blood pressure normotensive to mildly hypertensive here. Most recent blood pressure reasonable. Self discontinued outpatient beta-francesca. 3. Dyslipidemia: Given history of diabetes, recommend statin therapy. He has self discontinued statin therapy although he is now receiving it as an inpatient. Continue statin therapy if patient is agreeable in the outpatient setting. 4. Disposition: Dobutamine stress echo ordered. If unremarkable, can be discharged home from a cardiac perspective. If outpatient cardiology follow-up is needed, he has been established with Dr. Muñoz. Patient care communicated with primary hospitalist, Dr. Winter. Today's visit was 50 minutes in duration, including face to face time, counseling patient, coordinating care, reviewing records and images as noted above, and completing documentation. Thank you for allowing me to participate in the care of your patient. Please call for any other questions or concerns. Sincerely, Braeden Reid M.D. History of Present Illness Reason for Consultation: "concern for unstable angina" Requesting Physician: Baldomero Winter Attending Physician: Baldomero Winter History of Present Illness Mr. Lindsay is a 58-year-old gentleman with a history significant for type 2 diabetes, hypertension, dyslipidemia, COPD, gastric ulcer, and sleep apnea on 2 L supplemental oxygen via nasal cannula nightly (did not tolerate CPAP). He has been seen in the outpatient setting by Dr. Muñoz for his cardiology care, with his last visit on 08/18/2020. He has had several cardiac catheterizations in the past including 1998, 11/22/2008, 02/22/2015, and 08/12/2020. He has not been noted to have significant CAD. He reportedly had elevated troponins in the past following epinephrine administration x 2 during anaphylactic reaction. He has had the following studies/procedures: 1. Cardiac cath 1998: Normal coronary arteries per report. 2. Cardiac cath 11/22/2008: Proximal LAD 10 to 20%. 3. Cardiac cath 02/22/2015: Normal coronary arteries. 4. Cardiac cath 08/12/2020 [facility]: No significant CAD. LVEDP 18. PCWP 16; PA 37/19/25; RAP 17; PVR 1.45; CO via thermodilution 6.2 with CI 3.15. 5. Echo 05/11/2024: Normal LV size, wall motion, systolic function. EF 60-65%. Moderate LVH. No significant valvular abnormalities. He was admitted on 05/10/2024 with chest pain. He was weed eating yesterday outside and developed a substernal chest tightness that radiated to the neck and jaw. There was associated shortness of breath, lightheadedness, and diaphoresis. The pain persisted for 7 hours constantly. He was eventually administered nitroglycerin x 2 when he came to the ER and he believes that his symptoms resolved within 15 to 30 minutes. He has not had any recurrent chest discomfort. He has noted chest discomfort in the past when he uses his upper extremities. He has chronic dyspnea on exertion. He denies syncope, near syncope, palpitations, edema, or bleeding. He does not maintain a low-sodium diet and stated "I like my salt." He has not been nearly as active since undergoing colon surgery last summer. He had been on statin therapy and beta-francesca. He states that he self discontinued his medications other than his pain medications, gabapentin, and tamsulosin. He believes metoprolol made him syncopal in the past. Review of systems: As above. Review of systems otherwise negative/unremarkable. Family history: Father in his 30s from [place]. Older brother with CAD. Social history: Has smoked greater than 40+ pack years. Continues to smoke 1 pack/day. Quit consuming alcohol years ago. Lives at home with his . Has 1 son. On disability. Unaccompanied. Allergies Allergy/AdvReac Type Severity Reaction Status Date / Time bee venom protein (honey bee) Allergy Severe PASSES OUT Verified 03/20/24 12:45 naproxen Allergy Intermediate SEVERE RASH Verified 03/20/24 12:45 tramadol AdvReac Intermediate GI SYMPTOMS Verified 03/20/24 12:45 Home Medications Medication Instructions Recorded Confirmed Type blood sugar diagnostic ([employer] #100 ea 02/15/21 03/19/24 Rx Verio test strips) lancets 33 gauge ([employer] Delica #100 ea 02/15/21 03/19/24 Rx Lancets) epinephrine 0.3 mg/0.3 mL 0.3 mg IM DIRECTED PRN Allergic 02/21/22 03/20/24 History injection, auto-injector (EpiPen) Reaction ipratropium 0.5 mg-albuterol 3 mg 3 ml inhalation QID PRN Shortness 10/22/22 03/20/24 Rx (2.5 mg base)/3 mL nebulization Of Breath #180 mL soln Oxygen Home #1 ea 07/17/23 03/19/24 Rx metformin 500 mg tablet,extended 1,000 mg PO QAM PRN elevated BSG 07/30/23 03/20/24 History release 24hr (osmotic) pantoprazole 40 mg tablet,delayed 40 mg PO BID PRN Acid Reflux 07/30/23 03/20/24 History release (Protonix) fluticasone fur. 100 mcg-umeclid 1 inh inhalation QAM #60 ea 10/17/23 03/20/24 Rx 62.5 mcg-vilant 25 mcg inhalat.powder (Trelegy Ellipta) albuterol sulfate 90 mcg/actuation 2 puff inhalation Q4H PRN Wheezing 11/28/23 03/20/24 Rx aerosol inhaler #8.5 grams Walking Cane #1 ea 12/06/23 03/19/24 Rx tamsulosin 0.4 mg capsule 0.4 mg PO HS #90 caps 02/19/24 03/20/24 Rx metoprolol tartrate 50 mg tablet 25 mg PO UD PRN systolic >150 03/20/24 03/20/24 History gabapentin 300 mg capsule 900 mg (3 x 300 mg) PO TID #270 03/25/24 Rx caps morphine 15 mg tablet,extended 15 mg PO Q12H #60 tabs 04/20/24 Rx release ergocalciferol (vitamin D2) 1,250 50,000 unit PO WEEKLY #8 caps 04/21/24 Rx mcg (50,000 unit) capsule oxycodone 15 mg tablet 15 mg PO Q6H #90 tabs 04/30/24 Rx atorvastatin 80 mg tablet (Lipitor) 80 mg PO HS #90 tabs 05/11/24 Rx duloxetine 60 mg capsule,delayed 60 mg PO QAM #30 caps 05/11/24 Rx release Patient History Medical History (Updated 05/11/24 @ 14:14 by Reagan Reid MD) Hx of gastric ulcer early 2022. no current issues. SAUL (obstructive sleep apnea) wears 2lpm of O2 via n/c at night. Sigmoid diverticulitis hx 04/2023 -- exploratory lap with colostomy creation-with later reversal Hx of supraventricular tachycardia pt unaware [place] (hard of hearing) wears bilateral hearing aides Hx: recurrent pneumonia 2019+2020+ most recently hospitalized at [facility] in 2021. no problems since. Osteoarthritis Hypertension adjusting medications due to episodes of hypotension. Chronic CHF Chronic obstructive pulmonary disease controlled with daily inhaler-last albuterol inhaler use several days ago- average use 4-5 times monthly Hx of tinnitus History of anemia Hx of pulmonary hypertension (2019) Normal RVSP on 10/2022 ECHO Mild pulm HTN on 2019 RHC- PA pressure: 37/19 with a mean of 25 mmHg. Chronic neck pain Chronic back pain Urinary frequency at HS, reason for Flomax On home oxygen therapy O2 at night, 2lpm via n/c Diabetes mellitus type 2, uncontrolled NIDDM Polyneuropathy feet bilat Hyperlipemia reports he is not currently taking statin medication daily. GERD (gastroesophageal reflux disease) controlled, stable per pt NSTEMI (non-ST elevated myocardial infarction) (~2019) NSTEMI 2019- cardiac cath showed no CAD. Surgical History History of colostomy reversal (08/08/23) History of esophagogastroduodenoscopy (EGD) History of tonsillectomy H/O exploratory laparotomy (04/29/23) with colostomy creation - r/t diverticulitis. H/O vasectomy + REVERSAL History of colonoscopy History of tooth extraction History of cholecystectomy Hx of appendectomy S/P cervical spinal fusion C4 - C6 (pt thinks) -> ROM slightly limited with numbness down the right arm. Hx of arthroscopic knee surgery Right/left H/O cardiac catheterization ~2019 at [facility] -- no stents, follows with Dr Zoda Family History Father Heart disease age 37 - "heart attack" Hypertension Brother Coronary heart disease Hypertension Aunt Breast cancer Mother Hypertension Thyroid disease Other Allergies Cancer Diabetes No family history of adverse response to anesthesia No significant family history Denies family history of Tuberculosis Ovarian cancer Prostate cancer Emphysema, unspecified Colorectal cancer Lung disease Asthma Social History Smoking Status: Current every day smoker Tobacco Type: Cigarettes Age Started Using Tobacco: 19; packs per day: 1; Cigarettes Per Day: 20 CIG DAILY> advised on policy; Second Hand Exposure: No; Do You Dip or Chew Tobacco: No; Tobacco Cessation Education Requested by Patient: No Hx Alcohol Use: Yes Alcohol type: beer Hx Substance Use: No Preferred Language: Danish Communication Ability: Effective Visual Impairment: No Limitations Hearing Ability: Normal Worm Raiser Required: No Beliefs That Will Affect Care: None marital status: Current Living Situation: Spouse Current Living Situation Comment: and son current occupational status: disabled Other Information That Helps Us Care for You: No Feels Safe at Home: Yes Safety Concerns: Feels Safe At This Time Childhood Exposure to Second-Hand Smoke: Yes Diet: low carbohydrate and other Diet Comment: no fiber caffeine: Yes Dental Care, Regularly: No Physical Activity Frequency: Does not Exercise Seatbelt Use: always Sunscreen Use: No Assistive Devices: Cane, Glasses and Hearing Aid - Bilateral Physical Exam Physical Exam: Gen.: No acute distress. Alert and oriented. HEENT: Anicteric sclera. Neck: No JVD. No bruits. Normal carotid upstrokes bilaterally. Cardiac: No ventricular heave. Regular. Normal S1-S2. No murmurs, rubs, or gallops. Pulmonary: Clear to auscultation bilaterally without wheezes, rales, or rhonchi. Abdomen: Soft, nontender, nondistended, with normoactive bowel sounds. No bruits noted. Extremities: 2+ radial pulses bilaterally. 2+ posterior tibialis pulses bilaterally. No edema or cyanosis. Chest: Nontender to palpation. Results & Data Vital Signs (Past 12 Hours) Vital Signs Temp Pulse Pulse Resp BP BP Pulse Ox 05/11/24 11:01 36.8 C 82 18 131/74 92 05/11/24 08:00 73 05/11/24 08:00 05/11/24 07:18 36.5 C 79 18 119/66 94 05/11/24 04:24 36.7 C 101 H 19 136/80 93 O2 Del Method O2 Flow Rate 05/11/24 11:01 Room Air 05/11/24 08:00 05/11/24 08:00 Room Air 05/11/24 07:18 Nasal Cannula 2.0 05/11/24 04:24 Room Air Laboratory Results Laboratory Results - last 24 hr 05/10/24 05/10/24 05/10/24 19:22 21:22 22:07 WBC 16.05 H RBC 4.09 L Hgb 12.8 L Hct 38.4 L MCV 93.9 MCH 31.3 MCHC 33.3 RDW Std Deviation 48.1 H RDW Coeff of Liliya 14.0 Plt Count 322 MPV 9.6 Immature Gran % (Auto) 0.6 Neut % (Auto) 69.3 Lymph % (Auto) 20.6 Cassia % (Auto) 8.3 Eos % (Auto) 1.0 Baso % (Auto) 0.2 Neut # (Auto) 11.12 H Lymph # (Auto) 3.31 Cassia # (Auto) 1.33 H Eos # (Auto) 0.16 Baso # (Auto) 0.04 Immature Gran # (Auto) 0.09 APTT 26 PTT Ratio 1.0 D-Dimer 610 H* Sodium 135 L Potassium TNP 4.5 Chloride 101 Carbon Dioxide 26 Anion Gap 8 BUN 12 Creatinine 1.02 Est Cr Clr Drug Dosing 82.3 Est GFR ( Amer) 92.2 Est GFR (Non-Af Amer) 79.5 BUN/Creatinine Ratio 11.8 Glucose 122 H POC Glucose 114 H Estimat Average Glucose Hemoglobin A1c Calcium 9.5 Phosphorus Magnesium 2.1 Total Bilirubin 0.3 AST TNP 14 ALT 14 Alkaline Phosphatase 93 Troponin I High Sens 8.6 B-Natriuretic Peptide 27 Total Protein 7.4 Albumin 4.4 Globulin 3.0 Albumin/Globulin Ratio 1.5 Lipase 15 05/11/24 05/11/24 05/11/24 07:14 07:26 11:04 WBC 8.25 RBC 3.75 L Hgb 11.5 L Hct 35.0 L MCV 93.3 MCH 30.7 MCHC 32.9 RDW Std Deviation 48.4 H RDW Coeff of Liliya 14.2 Plt Count 291 MPV 9.6 Immature Gran % (Auto) 0.4 Neut % (Auto) 42.0 Lymph % (Auto) 44.1 Cassia % (Auto) 9.6 Eos % (Auto) 3.3 Baso % (Auto) 0.6 Neut # (Auto) 3.47 Lymph # (Auto) 3.64 H Cassia # (Auto) 0.79 H Eos # (Auto) 0.27 Baso # (Auto) 0.05 Immature Gran # (Auto) 0.03 APTT PTT Ratio D-Dimer Sodium 139 Potassium 4.2 Chloride 104 Carbon Dioxide 29 Anion Gap 6 BUN 13 Creatinine 0.80 Est Cr Clr Drug Dosing 102.7 Est GFR ( Amer) 112.5 Est GFR (Non-Af Amer) 97.1 BUN/Creatinine Ratio 16.3 Glucose 103 H POC Glucose 115 H 165 H Estimat Average Glucose 134 Hemoglobin A1c 6.3 H Calcium 8.6 Phosphorus 4.1 Magnesium 2.0 Total Bilirubin AST ALT Alkaline Phosphatase Troponin I High Sens 4.9 B-Natriuretic Peptide Total Protein Albumin 3.9 Globulin Albumin/Globulin Ratio Lipase Diagnostic Findings Telemetry personally reviewed: Sinus rhythm. No arrhythmia. Labs reviewed and notable for normal high-sensitivity troponin x 2. Normal BNP. Normal renal function, normal potassium, elevated A1c, normal transaminase levels, mild anemia. Echo report reviewed as noted above in HPI. Cardiac catheterization report reviewed as noted above in HPI. ECG personally reviewed 720 06/06/1909: Sinus tachycardia 110 bpm. Poor R wave progression. History and physical report reviewed. Outpatient cardiology note reviewed. Chest x-ray 05/11/2024: Emphysema. No acute process per radiology. Cath images from 08/12/2020 personally reviewed: No significant CAD. Medications Administered Current Inpatient Medications Acetaminophen (Acetaminophen 325 Mg Tab) 650 mg PO Q4H PRN PRN Reason: Pain or Fever Stop: 06/09/24 21:53 Albuterol (Albut/Ipratrop 3mg/0.5mg Neb 3 Ml Vial) 3 ml INH QID PRN; Protocol PRN Reason: Shortness Of Breath Stop: 06/09/24 21:53 Albuterol (Albuterol Hfa 8 Gm Inhaler) 2 puffs INH Q4H PRN PRN Reason: Wheezing Stop: 06/09/24 21:53 Atorvastatin Calcium (Atorvastatin 40 Mg Tab) 80 mg PO HS ERIN Stop: 06/09/24 21:53 Last Admin: 05/10/24 22:42 Dose: 80 mg Dextrose (Dextrose 50% 50 Ml Syringe) 25 - 50 ml IV UD PRN; Protocol PRN Reason: Hypoglycemia Protocol Stop: 06/09/24 21:53 Dicyclomine HCl (Dicyclomine Hcl 20 Mg Tab) 20 mg PO BID PRN PRN Reason: Cramping Stop: 06/09/24 21:53 Duloxetine HCl (Duloxetine Hcl 60 Mg Cap) 60 mg PO QAM ERIN Stop: 06/10/24 08:59 Last Admin: 05/11/24 08:07 Dose: 60 mg Fluticasone Furoate (Fluticasone Furoate 100mcg 14 Puffs/Inhaler) 1 puffs INH DAILY ERIN Stop: 06/10/24 08:59 Last Admin: 05/11/24 08:08 Dose: 1 puffs Gabapentin (Gabapentin 300 Mg Cap) 900 mg PO TID ERIN Stop: 06/09/24 21:53 Last Admin: 05/11/24 13:05 Dose: 900 mg Glucagon (Glucagon For Inj 1 Mg Vial) 1 mg SQ UD PRN; Protocol PRN Reason: Hypoglycemia Protocol Stop: 06/09/24 21:53 Glucose (Glucose 40% Gel 15 Gm Tube) 15 - 30 gm PO UD PRN; Protocol PRN Reason: Hypoglycemia Protocol Stop: 06/09/24 21:53 Glucose (Glucose 10 Tab/Tube) 4 - 8 tab PO UD PRN; Protocol PRN Reason: Hypoglycemia Treatment Stop: 06/09/24 21:53 Insulin Aspart (Insulin Aspart Per Unit Charge) 0 units SC ACHS ERIN Stop: 06/09/24 21:53 Last Admin: 05/11/24 11:48 Dose: 3 units Miscellaneous (Carbohydrates For Hypoglycemia ) 15 - 30 gm PO UD PRN PRN Reason: Hypoglycemia Protocol Stop: 06/09/24 21:53 Morphine Sulfate (Morphine Sulfate Cr 15 Mg Tabcr) 15 mg PO BID ERIN Stop: 05/24/24 22:29 Last Admin: 05/11/24 08:11 Dose: 15 mg Nitroglycerin (Nitroglycerin Sl 0.4 Mg/Tab Tab) 0.4 mg SL Q5M PRN PRN Reason: Chest Pain Stop: 06/09/24 21:53 Ondansetron HCl (Ondansetron Inj 2 Mg/Ml 2 Ml Vial) 4 mg IV Q6H PRN PRN Reason: NAUSEA/VOMITING Stop: 06/09/24 21:53 Oxycodone HCl (Oxycodone Hcl Ir 5 Mg Tab (Immediate Release)) 15 mg PO Q6 ERIN Stop: 05/24/24 22:29 Last Admin: 05/11/24 11:20 Dose: 15 mg Pantoprazole Sodium (Pantoprazole 40 Mg Tab) 40 mg PO BID ERIN Stop: 06/09/24 21:53 Last Admin: 05/11/24 08:07 Dose: 40 mg Tamsulosin HCl (Tamsulosin Hcl 0.4 Mg Cap) 0.4 mg PO HS ERIN Stop: 06/09/24 21:53 Last Admin: 05/10/24 22:42 Dose: 0.4 mg Umeclidinium/Vilanterol (Umeclidinium/Vilanterol 62.5/25mcg 7 Puffs/Inhaler) 1 puffs INH DAILY ERIN Stop: 06/10/24 08:59 Last Admin: 05/11/24 08:09 Dose: 1 puffs PG Care Time/CCT Total # of Minutes Spent Total Time Spent with Patient: Total time spent is greater than 50% in coordination of care (as documented) at patient's floor/unit and/or counseling patient: Coding Level of Care Code 43114 INT INP/OBS CARE 2/55MIN Diagnoses Atypical chest pain R07.89 Primary hypertension I10 Hypertension type: primary hypertension Dyslipidemia E78.5 (2) Hypertension Hypertension type: primary hypertension Qualified Code(s): I10 - Essential (primary) hypertension
[2024-05-11] MEDS: ATROPINE SULFATE 0.1 MG/ML 10ML SYR IV ONE ×2 (15:21→15:23)
[2024-05-11] MEDS: METOPROLOL TARTRATE 1 MG/ML VIAL IV ONE ×2 (15:22→15:23)
[2024-05-11] MEDS: DOBUTamine HCL 12.5 MG/ML 20 ML VIAL IV ONE (15:22)
--- NOTE | 2024-05-11 16:09 | XCELERA ---
[id number]
--- NOTE | 2024-05-12 06:03 | Electrocardiogram Report ---
Test Reason : Blood Pressure : / mmHG Vent. Rate : 110 BPM Atrial Rate : 110 BPM P-R Int : 146 ms QRS Dur : 096 ms QT Int : 348 ms P-R-T Axes : 034 051 060 degrees QTc Int : 470 ms Sinus tachycardia Poor R wave progression, consider anterior VA vs. lead placement vs. LVH Abnormal ECG When compared with ECG of 11-AUG-2023 11:25, Vent. rate has increased BY 44 BPM Incomplete right bundle branch block is no longer Present Confirmed by Reagan Reid ([id number]) on 05/12/2024 6:03:14 AM Referred By: REFERRED SELF Confirmed By:Reagan Reid
--- NOTE | 2024-05-13 10:31 | Discharge Summary ---
Discharge Summary Date of Service May 11, 2024 Principal Dx & Hospital Course #1 = Principal Diagnosis (1) Chest pain: (2) SOB (shortness of breath): (3) Chronic diastolic CHF (congestive heart failure): (4) Tobacco abuse: (5) Chronic obstructive pulmonary disease: (6) Chronic knee pain: (7) Vitamin D deficiency: (8) DM II (diabetes mellitus, type II), controlled: (9) Disorder of intervertebral disc at C6-C7 level with radiculopathy: (10) Cervical radiculopathy: (11) Stomach ulcer: (12) Duodenitis: (13) Chronic pain syndrome: (14) Lumbar radiculopathy: Plan Exertional chest pain/hypertension/chronic diastolic CHF- The patient will be admitted to telemetry for serial cardiac enzymes, serial EKG's, cardiac rhythm monitoring and a 2-D echocardiogram with Dopplers. Patient reports on and off chest pain over the past couple months, but today's episode following weed whacking outside was worse in intensity and duration, ultimately relieved by aspirin and sublingual at a question in the ED Negative cardiac catheterization on 08/12/2020 Aspirin 81 mg every morning, monitoring closely for history of gastric ulcer Likely aggravated in part by continued tobacco abuse consulted cardio: dobutamne stress test was negative. COPD exacerbation with hypoxia/tobacco abuse- Tobacco cessation counseling Continue Trelegy Ellipta every morning On room air at discharge. Chronic pain syndrome/cervical radiculopathy with history of CAD 6-7 cervical fusion/lumbar radiculopathy status post injury 2005- Continue usual pain medications: Oxycodone 15 mg p.o. every 6 hours, morphine extended release 15 mg p.o. every 2 hours Continue duloxetine 60 mg p.o. every morning Diabetes mellitus- resumed home meds. Hyperlipidemia- Continue atorvastatin 80 mg at bedtime Notes For Next Care Provider Regular followup Admission HPI Per Admitting Provider The patient is a 58-year-old male with past medical history including vitamin D deficiency, chronic diastolic CHF, history of colostomy reversal on 08/08/2023, peritonitis, colon diverticulitis with perforation, history of colon resection, diabetes mellitus type 2, ongoing tobacco abuse, C6-7 cervical fusion history, hypertension, duodenitis, stomach ulcer, COPD, chronic hypoxemic respiratory failure with 2 L nasal cannula oxygen with activity, SNHL bilaterally, gait disturbance, chronic pain syndrome, history of SVT, and lumbar radiculopathy. He presents to the emergency department with exertional chest discomfort for the past 2 months, worsened significantly in intensity and duration this afternoon while weed whacking, relieved by sublingual nitroglycerin and aspirin in the ED. Of note, patient is scheduled to have a right TKA to be performed by Dr. Fernandez on May 18 Discharge Exam The patient is awake, alert and oriented 3, well developed and well nourished, normocephalic and atraumatic, lying in bed and in no acute distress. HEENT--PERRL, EOMI Neck--supple. No JVD. No bruits. Thyroid normal, trachea midline, no adenopathy. Heart--normal S1 and S2. No murmurs, rubs or gallops. Lungs--Decreased breath sounds throughout. No respiratory distress, no accessory muscle use. Abdomen--normal bowel sounds and soft. Nontender. Nondistended, no hernias or masses, no organomegaly. Extremities--No edema. Dermatologic--normal skin turgor, normal color, no abnormal lymph nodes, no rash. Neurologic--cranial nerves II through XII grossly intact. Rheumatologic--normal range of motion. Psychiatric--normal affect. Updated Medication List Medication Instructions Recorded Confirmed Type blood sugar diagnostic ([employer] #100 ea 02/15/21 03/19/24 Rx Verio test strips) lancets 33 gauge ([employer] Delica #100 ea 02/15/21 03/19/24 Rx Lancets) epinephrine 0.3 mg/0.3 mL 0.3 mg IM DIRECTED PRN Allergic 02/21/22 03/20/24 History injection, auto-injector (EpiPen) Reaction ipratropium 0.5 mg-albuterol 3 mg 3 ml inhalation QID PRN Shortness 10/22/22 03/20/24 Rx (2.5 mg base)/3 mL nebulization Of Breath #180 mL soln Oxygen Home #1 ea 07/17/23 03/19/24 Rx metformin 500 mg tablet,extended 1,000 mg PO QAM PRN elevated BSG 07/30/23 03/20/24 History release 24hr (osmotic) pantoprazole 40 mg tablet,delayed 40 mg PO BID PRN Acid Reflux 07/30/23 03/20/24 History release (Protonix) fluticasone fur. 100 mcg-umeclid 1 inh inhalation QAM #60 ea 10/17/23 03/20/24 Rx 62.5 mcg-vilant 25 mcg inhalat.powder (Trelegy Ellipta) albuterol sulfate 90 mcg/actuation 2 puff inhalation Q4H PRN Wheezing 11/28/23 03/20/24 Rx aerosol inhaler #8.5 grams Walking Cane #1 ea 12/06/23 03/19/24 Rx tamsulosin 0.4 mg capsule 0.4 mg PO HS #90 caps 02/19/24 03/20/24 Rx metoprolol tartrate 50 mg tablet 25 mg PO UD PRN systolic >150 03/20/24 03/20/24 History gabapentin 300 mg capsule 900 mg (3 x 300 mg) PO TID #270 03/25/24 Rx caps morphine 15 mg tablet,extended 15 mg PO Q12H #60 tabs 04/20/24 Rx release ergocalciferol (vitamin D2) 1,250 50,000 unit PO WEEKLY #8 caps 04/21/24 Rx mcg (50,000 unit) capsule oxycodone 15 mg tablet 15 mg PO Q6H #90 tabs 04/30/24 Rx atorvastatin 80 mg tablet (Lipitor) 80 mg PO HS #90 tabs 05/11/24 Rx duloxetine 60 mg capsule,delayed 60 mg PO QAM #30 caps 05/11/24 Rx release Hospital Stay Data Consultations 05/10/24 20:15 ED Decision to Admit Stat 05/11/24 07:47 Consult Cardiology Routine Pending Results Patient Have Any Pending Studies at Discharge: No Discharge Instructions Given to Patient (Per Discharging Provider) recommend followup with PCP in 1-2 weeks for hospital followup. Total Time Total Time Spent Total Time Spent (In Minutes): 32 Coding Level of Care Code 86162 INP/OBS DISCH >30 MIN Diagnoses Chest pain R07.2 Chest pain type: precordial pain SOB (shortness of breath) R06.02 Chronic diastolic CHF (congestive heart failure) I50.32 Tobacco abuse Z72.0 Chronic obstructive pulmonary disease J44.9 Chronic knee pain M25.569; G89.29 Vitamin D deficiency E55.9 DM II (diabetes mellitus, type II), controlled E11.9 Disorder of intervertebral disc at C6-C7 level with radiculopathy M50.123 Cervical radiculopathy M54.12 Stomach ulcer K25.9 Duodenitis K29.80 Chronic pain syndrome G89.4 Lumbar radiculopathy M54.16
== END 2024-05-11 17:49 | disposition home or self-care (01) ==
LOC: 2S 18:54 → ED 18:54 → SUATTDRO 20:54 → 2S 21:32

== ENCOUNTER 2024-06-12 09:54 | Observation (INO) ==
--- NOTE | 2024-03-23 12:28 | PAT Medication Instructions ---
Medication Instructions Date of Service March 23, 2024 Home Medications Medication Instructions Recorded blood sugar diagnostic (Luciouch #100 ea 02/15/21 Verio test strips) lancets 33 gauge (Luciouch Delica #100 ea 02/15/21 Lancets) ipratropium 0.5 mg-albuterol 3 mg 3 ml inhalation QID PRN Shortness 10/22/22 (2.5 mg base)/3 mL nebulization Of Breath #180 mL soln Oxygen Home #1 ea 07/17/23 gabapentin 300 mg capsule 900 mg (3 x 300 mg) PO TID #270 07/29/23 caps fluticasone fur. 100 mcg-umeclid 1 inh inhalation QAM #60 ea 10/17/23 62.5 mcg-vilant 25 mcg inhalat.powder (Trelegy Ellipta) albuterol sulfate 90 mcg/actuation 2 puff inhalation Q4H PRN Wheezing 11/28/23 aerosol inhaler #8.5 grams Walking Cane #1 ea 12/06/23 ergocalciferol (vitamin D2) 1,250 50,000 unit PO WEEKLY #8 caps 02/11/24 mcg (50,000 unit) capsule tamsulosin 0.4 mg capsule 0.4 mg PO HS #90 caps 02/19/24 oxycodone 15 mg tablet 15 mg PO Q6H #90 tabs 03/05/24 morphine 15 mg tablet,extended 15 mg PO Q12H #60 tabs 03/19/24 release epinephrine 0.3 mg/0.3 mL injection, auto-injector (EpiPen) 0.3 mg IM DIRECTED PRN Allergic Reaction ipratropium 0.5 mg-albuterol 3 mg (2.5 mg base)/3 mL nebulization soln 3 ml inhalation QID PRN Shortness Of Breath gabapentin 300 mg capsule 900 mg (3 x 300 mg) PO TID metformin 500 mg tablet,extended release 24hr (osmotic) 1,000 mg PO QAM PRN elevated BSG pantoprazole 40 mg tablet,delayed release (Protonix) 40 mg PO BID PRN Acid Reflux fluticasone fur. 100 mcg-umeclid 62.5 mcg-vilant 25 mcg inhalat.powder (Trelegy Ellipta) 1 inh inhalation QAM # albuterol sulfate 90 mcg/actuation aerosol inhaler 2 puff inhalation Q4H PRN Wheezing ergocalciferol (vitamin D2) 1,250 mcg (50,000 unit) capsule 50,000 unit PO WEEKLY tamsulosin 0.4 mg capsule 0.4 mg PO HS oxycodone 15 mg tablet 15 mg PO Q6H morphine 15 mg tablet,extended release 15 mg PO Q12H atorvastatin 80 mg tablet (Lipitor) 80 mg PO HS metoprolol tartrate 50 mg tablet 25 mg PO UD PRN systolic >150 Continue as directed epinephrine 0.3 mg/0.3 mL injection, auto-injector (EpiPen) 0.3 mg IM DIRECTED PRN Allergic Reaction (if needed) ergocalciferol (vitamin D2) 1,250 mcg (50,000 unit) capsule 50,000 unit PO WEEKLY (just do NOT take on morning of surgery) DO NOT take the morning of surgery metformin 500 mg tablet,extended release 24hr (osmotic) 1,000 mg PO QAM PRN elevated BSG Take morning of surgery With a small sip of water, OTHERWISE NOTHING TO EAT OR DRINK AFTER MIDNIGHT: ipratropium 0.5 mg-albuterol 3 mg (2.5 mg base)/3 mL nebulization soln 3 ml inhalation QID PRN Shortness Of Breath (if needed) gabapentin 300 mg capsule 900 mg (3 x 300 mg) PO TID pantoprazole 40 mg tablet,delayed release (Protonix) 40 mg PO BID PRN Acid Reflux (if needed) fluticasone fur. 100 mcg-umeclid 62.5 mcg-vilant 25 mcg inhalat.powder (Trelegy Ellipta) 1 inh inhalation QAM albuterol sulfate 90 mcg/actuation aerosol inhaler 2 puff inhalation Q4H PRN Wheezing (use if needed; please bring with you to hospital day of surgery if possible) oxycodone 15 mg tablet 15 mg PO Q6H morphine 15 mg tablet,extended release 15 mg PO Q12H metoprolol tartrate 50 mg tablet 25 mg PO UD PRN systolic >150 (if needed) Take evening before surgery ipratropium 0.5 mg-albuterol 3 mg (2.5 mg base)/3 mL nebulization soln 3 ml inhalation QID PRN Shortness Of Breath (if needed) gabapentin 300 mg capsule 900 mg (3 x 300 mg) PO TID pantoprazole 40 mg tablet,delayed release (Protonix) 40 mg PO BID PRN Acid Reflux (if needed) albuterol sulfate 90 mcg/actuation aerosol inhaler 2 puff inhalation Q4H PRN Wheezing (if needed) tamsulosin 0.4 mg capsule 0.4 mg PO HS oxycodone 15 mg tablet 15 mg PO Q6H morphine 15 mg tablet,extended release 15 mg PO Q12H atorvastatin 80 mg tablet (Lipitor) 80 mg PO HS metoprolol tartrate 50 mg tablet 25 mg PO UD PRN systolic >150 (if needed) Other Notes If you have any questions please call us at [phone] or [phone] or [phone] or [phone]
--- NOTE | 2024-04-06 13:10 | Anesthesiology Consultation ---
Date of Service April 06, 2024 Assessment & Plan (1) Encounter for pre-operative examination: Plan - Case discussed in detail with Dr. Pastor who advised patient is acceptable to proceed without further evaluation. - Outpatient joint assessment: Patient is currently scheduled for inpatient pathway. If re-evaluated and patient/surgeon requests outpatient pathway, patient is not ideal candidate for outpatient joint program from anesthesia standpoint. Chart Review Chart Review: Acceptable Risk for Surgery and Patient seen in Pre Admission Testing Teaching & Discussion Pre-Anesthesia Teaching/Discussion Notes: Instructed NPO after midnight before surgery, except medications with 15 cc of water. Medication instructions provided according to the PAT guidelines. History Surgery Operation Date: 05/01/24 12:30 Proposed Procedures p Right Total Knee Arthroplasty - Trung Fernandez, Height/Weight Height: 5 ft 8 in Weight: 83.2 kg Allergies Allergy/AdvReac Type Severity Reaction Status Date / Time bee venom protein (honey bee) Allergy Severe PASSES OUT Verified 03/20/24 12:45 naproxen Allergy Intermediate SEVERE RASH Verified 03/20/24 12:45 tramadol AdvReac Intermediate GI SYMPTOMS Verified 03/20/24 12:45 Medications Home Medications Medication Instructions Recorded Confirmed Last Taken blood sugar diagnostic (OneTouch #100 ea 02/15/21 03/19/24 Unknown Verio test strips) lancets 33 gauge (OneTouch Delica #100 ea 02/15/21 03/19/24 Unknown Lancets) epinephrine 0.3 mg/0.3 mL 0.3 mg IM DIRECTED PRN Allergic 02/21/22 03/20/24 Unknown injection, auto-injector (EpiPen) Reaction ipratropium 0.5 mg-albuterol 3 mg 3 ml inhalation QID PRN Shortness 10/22/22 03/20/24 Unknown (2.5 mg base)/3 mL nebulization Of Breath #180 mL soln Oxygen Home #1 ea 07/17/23 03/19/24 Unknown metformin 500 mg tablet,extended 1,000 mg PO QAM PRN elevated BSG 07/30/23 03/20/24 08/08/23 07:00 release 24hr (osmotic) pantoprazole 40 mg tablet,delayed 40 mg PO BID PRN Acid Reflux 07/30/23 03/20/24 Unknown release (Protonix) fluticasone fur. 100 mcg-umeclid 1 inh inhalation QAM #60 ea 10/17/23 03/20/24 Unknown 62.5 mcg-vilant 25 mcg inhalat.powder (Trelegy Ellipta) albuterol sulfate 90 mcg/actuation 2 puff inhalation Q4H PRN Wheezing 11/28/23 03/20/24 Unknown aerosol inhaler #8.5 grams Walking Cane #1 ea 12/06/23 03/19/24 Unknown tamsulosin 0.4 mg capsule 0.4 mg PO HS #90 caps 02/19/24 03/20/24 Unknown morphine 15 mg tablet,extended 15 mg PO Q12H #60 tabs 03/19/24 03/20/24 Unknown release atorvastatin 80 mg tablet (Lipitor) 80 mg PO HS 03/20/24 03/20/24 Unknown metoprolol tartrate 50 mg tablet 25 mg PO UD PRN systolic >150 03/20/24 03/20/24 Unknown ergocalciferol (vitamin D2) 1,250 50,000 unit PO WEEKLY #8 caps 03/25/24 Unknown mcg (50,000 unit) capsule gabapentin 300 mg capsule 900 mg (3 x 300 mg) PO TID #270 03/25/24 Unknown caps oxycodone 15 mg tablet 15 mg PO Q6H #90 tabs 03/25/24 Unknown Past Medical History Medical History (Updated 04/06/24 @ 15:55 by Alma Mcadams PA-C) CAD (coronary artery disease) No angiographic evidence of CAD on 07/2020 cath-denies additional cardiac catheterizations Chronic back pain Chronic CHF Chronic neck pain Chronic obstructive pulmonary disease controlled with daily inhaler-last albuterol inhaler use several days ago- average use 4-5 times monthly Diabetes mellitus type 2, uncontrolled NIDDM GERD (gastroesophageal reflux disease) controlled, stable per pt History of anemia KL[place]I KAAH (hard of hearing) wears bilateral hearing aides Hx of gastric ulcer early 2022. no current issues. Hx of pulmonary hypertension (2019) Normal RVSP on 10/2022 ECHO Mild pulm HTN on 2019 RHC- PA pressure: 37/19 with a mean of 25 mmHg. Hx of supraventricular tachycardia pt unaware Hx of tinnitus Hx: recurrent pneumonia 2019+2020+ most recently hospitalized at [facility] in 2021. no problems since. Hyperlipemia reports he is not currently taking statin medication daily. Hypertension adjusting medications due to episodes of hypotension. NSTEMI (non-ST elevated myocardial infarction) (~2019) NSTEMI 2020- cardiac cath showed no CAD. On home oxygen therapy O2 at night, 2lpm via n/c SAUL (obstructive sleep apnea) wears 2lpm of O2 via n/c at night. Osteoarthritis Polyneuropathy feet bilat Sigmoid diverticulitis hx 04/2023 -- exploratory lap with colostomy creation-with later reversal Urinary frequency at HS, reason for Flomax Patient denies h/o stroke, seizures, blood clots/DVTs or blood transfusions. Exercise / Class Metabolic Activity III < 4 Walking/Shop/Light housework (denies chest discomfort or shortness of breath with usual activities) Past Family History Family History Father Heart disease Hypertension Brother Coronary heart disease Hypertension Aunt Breast cancer Mother Hypertension Thyroid disease Other Allergies Cancer Diabetes No family history of adverse response to anesthesia No significant family history Denies family history of Tuberculosis Ovarian cancer Prostate cancer Emphysema, unspecified Colorectal cancer Lung disease Asthma Past Surgical History Surgical History (Updated 03/20/24 @ 13:31 by Adore Ventura RN) H/O cardiac catheterization ~2019 at [facility] -- no stents, follows with Dr Muñoz H/O exploratory laparotomy (04/29/23) with colostomy creation - r/t diverticulitis. H/O vasectomy + REVERSAL History of cholecystectomy History of colonoscopy History of colostomy reversal (08/08/23) History of esophagogastroduodenoscopy (EGD) History of tonsillectomy History of tooth extraction Hx of appendectomy Hx of arthroscopic knee surgery Right/left S/P cervical spinal fusion C4 - C6 (pt thinks) -> ROM slightly limited with numbness down the right arm. Past Anesthesia History No Hx of Anesthesia Complications and No Family Hx of Anesthesia Complications History of PONV No Hx of PONV and No Hx of Motion Sickness Social History Smoking Status: Current every day smoker tobacco type: cigarettes Smoking cigarettes per day: 20 CIG DAILY> advised on policy Do You Dip or Chew Tobacco: No Hx Alcohol Use: No Alcohol type: beer and hard liquor alcohol intake frequency: holidays/special occasions only Hx Substance Use: No substance use type: does not use Review of Systems Patient denies chest pain, shortness of breath, dyspnea on exertion, snoring, witnessed apneas, fever, chills, cough, wheezing, or palpitations. Physical Exam Vital Signs Vitals BP 171/104 automatic left arm; 169/98 manual left arm (pt reports chronic white coat HTN in this range, notes good readings at home) P 84 TEMP 98.4 SP02 97% on RA RESP 18 Physical Patient resting comfortably in chair in no acute distress, alert and oriented, responding appropriately throughout visit Full cervical extension range of motion without pain TMD 3.5 finger breadths Mallampati Score 3 Dentition: several broken tooth, denies loose teeth, caps/crowns, implants or bridges Lungs: normal respiratory effort. Good air movement, clear throughout to auscultation, no adventitious breath sounds Cardiac: regular rate and rhythm, no murmurs noted Carotid arteries: negative bruit bilat Lab Results Anesthesia Preop Results Results Anesthesia Widget: WBC 7.88 K/ul (4.8-10.8) 04/06/24 Hgb 14.2 g/dl (14.0-18.0) 04/06/24 Hct 43.6 % (42.0-52.0) 04/06/24 Plt 315 K/uL (130-400) 04/06/24 Na 138 mmol/L (136-145) 04/06/24 K 4.2 mmol/L (3.5-5.1) 04/06/24 Cl 107 mmol/L (98-107) 04/06/24 CO2 25 mmol/L (21-32) 04/06/24 BUN 10 mg/dl (6-23) 04/06/24 Creat 0.83 mg/dl (0.6-1.4) 04/06/24 Glucose Level 94 mg/dl (70-99(Fasting)) 04/06/24 PT 10.0 Seconds (9.0-12.0) 04/06/24 PTT 28 Seconds (21-31) 04/06/24 INR 0.9 (0.9-1.1) 04/06/24 HA1c 6.2 % (4.5-5.6) H 04/06/24 Blood Type O Positive 04/06/24 Antibody Screen NEGATIVE 04/06/24 Testing Electrocardiogram Date: 02/20/24 Sinus rhythm, rate 91 bpm Moderate intraventricular conduction delay Chest X-Ray Date: 08/11/23 *1view* No acute process. Echocardiogram Date: 10/29/22 EF 65-70% No LV regional wall motion abnormalities Moderate cLVH Sclerotic aortic valve without significant stenosis Type I diastolic dysfunction Cervical Spine Date: 04/04/23 Postsurgical and degenerative changes without evidence of acute fracture. Other Testing Low dose lung CT 02/26/24 1. Emphysema without acute intrathoracic abnormality. 2. No suspicious pulmonary nodules. Abdomen pelvis CT 04/28/23 No abnormalities are seen within the abdomen. Of note, previously noted multiple perforations were in the pelvis. Trace free fluid in the right pericolic gutter may be reactive.
--- NOTE | 2024-04-30 07:24 | History & Physical Report ---
Date of Service April 30, 2024 Assessment & Plan (1) Right knee DJD: We will proceed with a right total knee arthroplasty. Postoperatively he will be started on aspirin for DVT prophylaxis and kept overnight in the hospital for postop medical management. He plans to have the hospital set up home health for discharge. History of Present Illness Chief Complaint: Osteoarthritis of the right knee. Primary Care Provider: Mansoor Zhao MD Meet is a pleasant 58-year-old male who has been dealing with chronic increasing right knee pain. X-rays and clinical exam have been diagnostic for advanced arthritis of the right knee. I have been treating him conservatively for years. Unfortunately, he is really struggling with the right knee. He is not getting better. After failing conservative treatment, he has elected proceed with a right total knee arthroplasty. Allergies Allergy/AdvReac Type Severity Reaction Status Date / Time bee venom protein (honey bee) Allergy Severe PASSES OUT Verified 03/20/24 12:45 naproxen Allergy Intermediate SEVERE RASH Verified 03/20/24 12:45 tramadol AdvReac Intermediate GI SYMPTOMS Verified 03/20/24 12:45 Home Medications Medication Instructions Recorded Confirmed Type blood sugar diagnostic (OneTouch #100 ea 02/15/21 03/19/24 Rx Verio test strips) lancets 33 gauge (OneTouch Delica #100 ea 02/15/21 03/19/24 Rx Lancets) epinephrine 0.3 mg/0.3 mL 0.3 mg IM DIRECTED PRN Allergic 02/21/22 03/20/24 History injection, auto-injector (EpiPen) Reaction ipratropium 0.5 mg-albuterol 3 mg 3 ml inhalation QID PRN Shortness 10/22/22 03/20/24 Rx (2.5 mg base)/3 mL nebulization Of Breath #180 mL soln Oxygen Home #1 ea 07/17/23 03/19/24 Rx metformin 500 mg tablet,extended 1,000 mg PO QAM PRN elevated BSG 07/30/23 03/20/24 History release 24hr (osmotic) pantoprazole 40 mg tablet,delayed 40 mg PO BID PRN Acid Reflux 07/30/23 03/20/24 History release (Protonix) fluticasone fur. 100 mcg-umeclid 1 inh inhalation QAM #60 ea 10/17/23 03/20/24 Rx 62.5 mcg-vilant 25 mcg inhalat.powder (Trelegy Ellipta) albuterol sulfate 90 mcg/actuation 2 puff inhalation Q4H PRN Wheezing 11/28/23 03/20/24 Rx aerosol inhaler #8.5 grams Walking Cane #1 ea 12/06/23 03/19/24 Rx tamsulosin 0.4 mg capsule 0.4 mg PO HS #90 caps 02/19/24 03/20/24 Rx metoprolol tartrate 50 mg tablet 25 mg PO UD PRN systolic >150 03/20/24 03/20/24 History gabapentin 300 mg capsule 900 mg (3 x 300 mg) PO TID #270 03/25/24 Rx caps atorvastatin 80 mg tablet (Lipitor) 80 mg PO HS #90 tabs 04/13/24 Rx oxycodone 15 mg tablet 15 mg PO Q6H #90 tabs 04/13/24 Rx morphine 15 mg tablet,extended 15 mg PO Q12H #60 tabs 04/20/24 Rx release ergocalciferol (vitamin D2) 1,250 50,000 unit PO WEEKLY #8 caps 04/21/24 Rx mcg (50,000 unit) capsule Past Med/Surg History Problem List Chronic knee pain Vitamin D deficiency Hypokalemia 08/12/23 Chronic diastolic CHF (congestive heart failure) History of colostomy reversal (08/08/23) Laparoscopic Reversal Colostomy, extensive enterolysis - Bernard Rocha DO Hospital discharge follow-up DVT prophylaxis Peritonitis 04/30/23 Diverticulitis of colon with perforation 04/30/23 History of colon resection (04/29/23) Exploratory Laparotomy, Sigmoid colectomy with Diverting Colostomy, Takedown enterocolonic fistula with primary Repair(Not Applicable) - Bernard Rocha DO Encounter for pre-operative examination Diverticulitis (Acute) with colon perforation 04/25/23- admitted to [facility] - initially treated with IV abxs and fluids- s/p sigmoid colectomy with diverting colostomy 04/29/23 DM II (diabetes mellitus, type II), controlled Tobacco abuse Disorder of intervertebral disc at C6-C7 level with radiculopathy 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 no current issues. Epigastric abdominal pain entered into EMR 12/07/22-pt denies current abdominal pain Leukocytosis (Acute) Left knee DJD Subacromial bursitis Rotator cuff tendinitis Knee effusion Right knee DJD Cervical radiculopathy Chronic obstructive pulmonary disease WEARS 2L HS (WILL WEAR DURING DAY PRN SOB) Tobacco abuse counseling Folate deficiency Chronic narcotic use Chronic hypoxemic respiratory failure DOMENICA (acute kidney injury) (Acute) 02/21/22 Pneumonia (Acute) 02/21/22 Subjective fever entered into EMR 02/21/22; pt denies current/recent fever Hypotension 02/21/22 Sensorineural hearing loss (SNHL) of both ears Bilateral tinnitus Tinnitus Decreased hearing of both ears Nocturia Edema of knee-denies other edema Chest pain 08/08/20 Renal insufficiency Dyspnea 08/08/20 Diastolic CHF, acute on chronic Grade I DD with normal EF of 65-70% on 10/29/22 ECHO Right knee pain Abnormal CT scan, chest Excessive daytime sleepiness Chronic bronchitis 11/26/19 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) Seborrheic keratosis (Chronic) Nicotine dependence (Chronic) 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 no current issues. SAUL (obstructive sleep apnea) wears 2lpm of O2 via n/c at night. Sigmoid diverticulitis hx 04/2023 -- exploratory lap with colostomy creation-with later reversal Hx of supraventricular tachycardia pt unaware [place] (hard of hearing) wears bilateral hearing aides Hx: recurrent pneumonia 2019+2020+ most recently hospitalized at [facility] in 2021. no problems since. Osteoarthritis Hypertension adjusting medications due to episodes of hypotension. Chronic CHF Chronic obstructive pulmonary disease controlled with daily inhaler-last albuterol inhaler use several days ago- average use 4-5 times monthly Hx of tinnitus History of anemia Hx of pulmonary hypertension (2019) Normal RVSP on 10/2022 ECHO Mild pulm HTN on 2019 RHC- PA pressure: 37/19 with a mean of 25 mmHg. Chronic neck pain Chronic back pain Urinary frequency at HS, reason for Flomax On home oxygen therapy O2 at night, 2lpm via n/c CAD (coronary artery disease) No angiographic evidence of CAD on 07/2020 cath-denies additional cardiac catheterizations Diabetes mellitus type 2, uncontrolled NIDDM Polyneuropathy feet bilat Hyperlipemia reports he is not currently taking statin medication daily. GERD (gastroesophageal reflux disease) controlled, stable per pt NSTEMI (non-ST elevated myocardial infarction) (~2019) NSTEMI 2019- cardiac cath showed no CAD. Surgical History History of colostomy reversal (08/08/23) History of esophagogastroduodenoscopy (EGD) History of tonsillectomy H/O exploratory laparotomy (04/29/23) with colostomy creation - r/t diverticulitis. H/O vasectomy + REVERSAL History of colonoscopy History of tooth extraction History of cholecystectomy Hx of appendectomy S/P cervical spinal fusion C4 - C6 (pt thinks) -> ROM slightly limited with numbness down the right arm. Hx of arthroscopic knee surgery Right/left H/O cardiac catheterization ~2019 at [facility] -- no stents, follows with Dr Muñoz Family History Father Heart disease age 37 - "heart attack" Hypertension Brother Coronary heart disease Hypertension Aunt Breast cancer Mother Hypertension Thyroid disease Other Allergies Cancer Diabetes No family history of adverse response to anesthesia No significant family history Denies family history of Tuberculosis Ovarian cancer Prostate cancer Emphysema, unspecified Colorectal cancer Lung disease Asthma Social History Smoking Status: Current every day smoker Tobacco Type: Cigarettes Age Started Using Tobacco: 19; packs per day: 1; Cigarettes Per Day: 20 CIG DAILY> advised on policy; Second Hand Exposure: No; Do You Dip or Chew Tobacco: No; Tobacco Cessation Education Requested by Patient: No Hx Alcohol Use: No Hx Substance Use: No Preferred Language: [place]ian Communication Ability: Effective Visual Impairment: No Limitations Hearing Ability: Normal Embryology Teacher Required: No Beliefs That Will Affect Care: None marital status: Current Living Situation: Spouse Current Living Situation Comment: and Son current occupational status: disabled Other Information That Helps Us Care for You: No Feels Safe at Home: Yes Safety Concerns: Feels Safe At This Time Childhood Exposure to Second-Hand Smoke: Yes Diet: low carbohydrate and other Diet Comment: no fiber caffeine: Yes Dental Care, Regularly: No Physical Activity Frequency: Does not Exercise Seatbelt Use: always Sunscreen Use: No Assistive Devices: Cane, Glasses, Hearing Aid - Bilateral and Oxygen - at Night Review of Systems All systems reviewed & are unremarkable except as noted in HPI & below. Physical Exam On physical examination of the right knee, he has a slight varus deformity. He has tenderness palpation of the distal medial femoral condyle and over the medial joint line.. Constitutional WD/WN, vitals as above Eyes PERRL, conjunctivae normal, anicteric sclerae ENMT external ear and nose normal, oropharynx normal Neck trachea midline, no thyromegaly Respiratory normal respiratory effort Cardiovascular RRR, no murmur, no edema Gastrointestinal (Abdomen) normal bowel sounds, soft, nontender, no hepatosplenomegaly Psychiatric A+Ox3, euthymic affect Results & Data Results & Data Laboratory Results . Diagnostic Findings X-rays of the right knee show advanced osteoarthritis with joint space narrowing, osteophyte formation, and [id number] articulation PG Care Time/CCT Total # of Minutes Spent Total Time Spent with Patient: Total time spent is greater than 50% in coordination of care (as documented) at patient's floor/unit and/or counseling patient: Coding Level of Care Code None Diagnoses Right knee DJD M17.11
--- NOTE | 2024-05-14 13:33 | History & Physical Report ---
Date of Service May 14, 2024 Assessment & Plan (1) Right knee DJD: We will proceed with a right total knee arthroplasty. Postoperatively he will be started on aspirin for DVT prophylaxis and kept overnight in the hospital for postop medical management. He plans to have the hospital set up home health for discharge. History of Present Illness Chief Complaint: Osteoarthritis of the right knee. Primary Care Provider: Mansoor Zhao MD Meet is a pleasant 58-year-old male who has been dealing with chronic increasing right knee pain. X-rays and clinical exam have been diagnostic for advanced arthritis of the right hip. I have been treating him conservatively for years. Unfortunately, he is really struggling with the right knee. He is not getting better. After failing conservative treatment, he has elected to proceed with a right total knee arthroplasty. Allergies Allergy/AdvReac Type Severity Reaction Status Date / Time bee venom protein (honey bee) Allergy Severe PASSES OUT Verified 03/20/24 12:45 naproxen Allergy Intermediate SEVERE RASH Verified 03/20/24 12:45 tramadol AdvReac Intermediate GI SYMPTOMS Verified 03/20/24 12:45 Home Medications Medication Instructions Recorded Confirmed Type blood sugar diagnostic (OneTouch #100 ea 02/15/21 03/19/24 Rx Verio test strips) lancets 33 gauge (OneTouch Delica #100 ea 02/15/21 03/19/24 Rx Lancets) epinephrine 0.3 mg/0.3 mL 0.3 mg IM DIRECTED PRN Allergic 02/21/22 03/20/24 History injection, auto-injector (EpiPen) Reaction ipratropium 0.5 mg-albuterol 3 mg 3 ml inhalation QID PRN Shortness 10/22/22 03/20/24 Rx (2.5 mg base)/3 mL nebulization Of Breath #180 mL soln Oxygen Home #1 ea 07/17/23 03/19/24 Rx metformin 500 mg tablet,extended 1,000 mg PO QAM PRN elevated BSG 07/30/23 03/20/24 History release 24hr (osmotic) pantoprazole 40 mg tablet,delayed 40 mg PO BID PRN Acid Reflux 07/30/23 03/20/24 History release (Protonix) fluticasone fur. 100 mcg-umeclid 1 inh inhalation QAM #60 ea 10/17/23 03/20/24 Rx 62.5 mcg-vilant 25 mcg inhalat.powder (Trelegy Ellipta) albuterol sulfate 90 mcg/actuation 2 puff inhalation Q4H PRN Wheezing 11/28/23 03/20/24 Rx aerosol inhaler #8.5 grams Walking Cane #1 ea 12/06/23 03/19/24 Rx tamsulosin 0.4 mg capsule 0.4 mg PO HS #90 caps 02/19/24 03/20/24 Rx metoprolol tartrate 50 mg tablet 25 mg PO UD PRN systolic >150 03/20/24 03/20/24 History gabapentin 300 mg capsule 900 mg (3 x 300 mg) PO TID #270 03/25/24 Rx caps morphine 15 mg tablet,extended 15 mg PO Q12H #60 tabs 04/20/24 Rx release ergocalciferol (vitamin D2) 1,250 50,000 unit PO WEEKLY #8 caps 04/21/24 Rx mcg (50,000 unit) capsule oxycodone 15 mg tablet 15 mg PO Q6H #90 tabs 04/30/24 Rx atorvastatin 80 mg tablet (Lipitor) 80 mg PO HS #90 tabs 05/11/24 Rx duloxetine 60 mg capsule,delayed 60 mg PO QAM #30 caps 05/11/24 Rx release Past Med/Surg History Problem List Dyslipidemia COPD (chronic obstructive pulmonary disease) (Acute) SOB (shortness of breath) (Acute) Chest pain (Acute) Chronic knee pain Vitamin D deficiency Hypokalemia 08/12/23 Chronic diastolic CHF (congestive heart failure) History of colostomy reversal (08/08/23) Laparoscopic Reversal Colostomy, extensive enterolysis - Bernard Rocha DO Hospital discharge follow-up DVT prophylaxis Peritonitis 04/30/23 Diverticulitis of colon with perforation 04/30/23 History of colon resection (04/29/23) Exploratory Laparotomy, Sigmoid colectomy with Diverting Colostomy, Takedown enterocolonic fistula with primary Repair(Not Applicable) - Bernard Rocha DO Encounter for pre-operative examination Diverticulitis (Acute) with colon perforation 04/25/23- admitted to [facility] - initially treated with IV abxs and fluids- s/p sigmoid colectomy with diverting colostomy 04/29/23 DM II (diabetes mellitus, type II), controlled Tobacco abuse (Acute) Disorder of intervertebral disc at C6-C7 level with radiculopathy 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 no current issues. Epigastric abdominal pain entered into EMR 12/07/22-pt denies current abdominal pain Leukocytosis (Acute) Left knee DJD Subacromial bursitis Rotator cuff tendinitis Knee effusion Right knee DJD Cervical radiculopathy Chronic obstructive pulmonary disease WEARS 2L HS (WILL WEAR DURING DAY PRN SOB) Tobacco abuse counseling Folate deficiency Chronic narcotic use Chronic hypoxemic respiratory failure DOMENICA (acute kidney injury) (Acute) 02/21/22 Pneumonia (Acute) 02/21/22 Subjective fever entered into EMR 02/21/22; pt denies current/recent fever Hypotension 02/21/22 Sensorineural hearing loss (SNHL) of both ears Bilateral tinnitus Tinnitus Decreased hearing of both ears Nocturia Edema of knee-denies other edema Chest pain 08/08/20 Renal insufficiency Dyspnea 08/08/[address] knee pain Ab[address] CT scan, chest Excessive daytime sleepiness Chronic bronchitis 11/26/19 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) Seborrheic keratosis (Chronic) Nicotine dependence (Chronic) 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 no current issues. SAUL (obstructive sleep apnea) wears 2lpm of O2 via n/c at night. Sigmoid diverticulitis hx 04/2023 -- exploratory lap with colostomy creation-with later reversal Hx of supraventricular tachycardia pt unaware CHILKOOT (hard of hearing) wears bilateral hearing aides Hx: recurrent pneumonia 2019+2020+ most recently hospitalized at [facility] in 2021. no problems since. Osteoarthritis Hypertension adjusting medications due to episodes of hypotension. Chronic CHF Chronic obstructive pulmonary disease controlled with daily inhaler-last albuterol inhaler use several days ago- average use 4-5 times monthly Hx of tinnitus History of anemia Hx of pulmonary hypertension (2019) Normal RVSP on 10/2022 ECHO Mild pulm HTN on 2019 RHC- PA pressure: 37/19 with a mean of 25 mmHg. Chronic neck pain Chronic back pain Urinary frequency at HS, reason for Flomax On home oxygen therapy O2 at night, 2lpm via n/c Diabetes mellitus type 2, uncontrolled NIDDM Polyneuropathy feet bilat Hyperlipemia reports he is not currently taking statin medication daily. GERD (gastroesophageal reflux disease) controlled, stable per pt NSTEMI (non-ST elevated myocardial infarction) (~2019) NSTEMI 2019- cardiac cath showed no CAD. Surgical History History of colostomy reversal (08/08/23) History of esophagogastroduodenoscopy (EGD) History of tonsillectomy H/O exploratory laparotomy (04/29/23) with colostomy creation - r/t diverticulitis. H/O vasectomy + REVERSAL History of colonoscopy History of tooth extraction History of cholecystectomy Hx of appendectomy S/P cervical spinal fusion C4 - C6 (pt thinks) -> ROM slightly limited with numbness down the right arm. Hx of arthroscopic knee surgery Right/left H/O cardiac catheterization ~2019 at [facility] -- no stents, follows with Dr Muñoz Family History Father Heart disease age 37 - "heart attack" Hypertension Brother Coronary heart disease Hypertension Aunt Breast cancer Mother Hypertension Thyroid disease Other Allergies Cancer Diabetes No family history of adverse response to anesthesia No significant family history Denies family history of Tuberculosis Ovarian cancer Prostate cancer Emphysema, unspecified Colorectal cancer Lung disease Asthma Social History Smoking Status: Current every day smoker Tobacco Type: Cigarettes Age Started Using Tobacco: 19; packs per day: 1; Cigarettes Per Day: 20 CIG DAILY> advised on policy; Second Hand Exposure: No; Do You Dip or Chew Tobacco: No; Tobacco Cessation Education Requested by Patient: No Hx Alcohol Use: Yes Alcohol type: beer Hx Substance Use: No Preferred Language: Albanian Communication Ability: Effective Visual Impairment: No Limitations Hearing Ability: Normal Head Of Partner Development Required: No Beliefs That Will Affect Care: None marital status: Current Living Situation: Spouse Current Living Situation Comment: and son current occupational status: disabled Other Information That Helps Us Care for You: No Feels Safe at Home: Yes Safety Concerns: Feels Safe At This Time Childhood Exposure to Second-Hand Smoke: Yes Diet: low carbohydrate and other Diet Comment: no fiber caffeine: Yes Dental Care, Regularly: No Physical Activity Frequency: Does not Exercise Seatbelt Use: always Sunscreen Use: No Assistive Devices: Cane, Glasses and Hearing Aid - Bilateral Review of Systems All systems reviewed & are unremarkable except as noted in HPI & below. Physical Exam On physical examination the right knee, he has a slight varus deformity. He has tenderness palpation of the distal medial femoral condyle and over the medial joint line.. Constitutional WD/WN, vitals as above Eyes PERRL, conjunctivae normal, anicteric sclerae ENMT external ear and nose normal, oropharynx normal Neck trachea midline, no thyromegaly Respiratory normal respiratory effort Cardiovascular RRR, no murmur, no edema Gastrointestinal (Abdomen) normal bowel sounds, soft, nontender, no hepatosplenomegaly Psychiatric A+Ox3, euthymic affect Results & Data Results & Data Laboratory Results . Diagnostic Findings X-rays of the right knee show advanced medial compartmental arthritis with joint space narrowing osteophyte formation and [id number] tubulation.. PG Care Time/CCT Total # of Minutes Spent Total Time Spent with Patient: Total time spent is greater than 50% in coordination of care (as documented) at patient's floor/unit and/or counseling patient: Coding Level of Care Code None Diagnoses Right knee DJD M17.11
[~2024-06-12 09:54] MED LIST changes: +ACETAMINOPHEN 500 MG TAB PO SCH; +BUPIVACAINE 0.5 % 5 MG/1 ML PF 10ML VIAL ONE; +FAMOTIDINE 20 MG TAB PO SCH; +GABAPENTIN 600 MG DOSE PO SCH; -HEPARIN SOD 5,000 UNIT/0.5 ML VIAL SQ SCH; -LACTATED RINGER'S 1,000 ML IV SCH; +LR 500ML BOLUS, THEN 15ML/HR IV SCH; +LR 60ML/HR IV SCH; +ROPIV 0.5% 246mg, Ketorolac 30mg, EPINEPHrine 0.5mg in NSS INFIL SCH; +ROPIVACAINE 0.5% 5 MG/ML 30 ML VIAL ONE; +TRANEXAMIC ACID 1,000 MG **IV Intra-op IV SCH; +TRANEXAMIC ACID 1,000 MG **IV Pre-op IV SCH; +dexAMETHasone**PF** 10 MG/ML VIAL IV SCH
[2024-06-12] MEDS ORDERED: fentaNYL citrate PF 100 MCG/2 ML VIAL ONE (10:17)
[2024-06-12] MEDS ORDERED: MIDAZOLAM HCL 1 MG/ML 2ML VIAL ONE (10:17)
[2024-06-12] MEDS: LR 60ML/HR IV SCH (10:28)
[2024-06-12] MEDS: GABAPENTIN 600 MG DOSE PO SCH (10:40)
[2024-06-12] MEDS: dexAMETHasone**PF** 10 MG/ML VIAL IV SCH (10:59)
[2024-06-12] MEDS: ACETAMINOPHEN 500 MG TAB PO SCH ×2 (10:59→16:04)
[2024-06-12] MEDS: FAMOTIDINE 20 MG TAB PO SCH (10:59)
[2024-06-12] MEDS ORDERED: fentaNYL citrate PF 100 MCG/2 ML VIAL IV PRN (11:03)
[2024-06-12] MEDS ORDERED: ePHEDrine sulfate 50 MG/ML AMP IV PRN (11:03)
[2024-06-12] MEDS ORDERED: ATROPINE SULFATE 0.1 MG/ML 10ML SYR IV PRN (11:03)
[2024-06-12] MEDS ORDERED: ONDANSETRON INJ 2 MG/ML 2 ML VIAL IV PRN ×2 (11:03→15:07)
--- NOTE | 2024-06-12 11:03 | History & Physical Bridge Note ---
Date of Service June 12, 2024 History & Physical Bridge Note I have examined the patient, reviewed the History & Physical and in the interval since the performance of the History & Physical I have noted the following changes of clinical significance: no changes noted
[2024-06-12] MEDS: LR 500ML BOLUS, THEN 15ML/HR IV SCH (11:05)
[2024-06-12] MEDS: TRANEXAMIC ACID 1,000 MG **IV Pre-op IV SCH (11:30)
[2024-06-12] MEDS: ceFAZolin 2000MG 2,000 MG/15 ML SYR IV SCH ×2 (11:55→19:42)
[2024-06-12] MEDS: ORTHO JOINT ANESTHETIC ONE (12:27)
[2024-06-12] MEDS: ROPIV 0.5% 246mg, Ketorolac 30mg, EPINEPHrine 0.5mg in NSS INFIL SCH (12:47)
[2024-06-12] MEDS: TRANEXAMIC ACID 1,000 MG **IV Intra-op IV SCH (12:51)
--- NOTE | 2024-06-12 13:04 | Operative Report ---
PG Post Operative Report Pre & Post Diagnosis Operation Date: 06/12/24 12:00 Pre-Op Diagnosis: Degenerative Joint Disease, Knee Right Post-Op Diagnosis: Degenerative Joint Disease, Knee Right I identified the patient and participated in the time-out.: Yes Procedure Operation Date: 06/12/24 12:00 Actual Procedures p Right Total Knee Arthroplasty(Right) - Trung Fernandez DO Surgeon Trung Fernandez DO Licensed Vocational Nurse Trung Cummings PA-C Estimated Blood Loss 30 Findings Consistent with Post-Op Diagnosis Specimens Right femoral and tibial bone Description of Procedure Implants used: I used a Angel Person[employer] total knee arthroplasty system with a size 9 PS standard femur, F tibia, 34 oval patella, and a size 12 CPS polyethylene bearing. All components were cemented in place with Biomet cement. Meet arrived [facility] for the above procedure. He was seen in the preoperative holding area and the operative extremity was identified and signed. He was given a preoperative antibiotic, TXA, a spinal anesthetic and an adductor nerve block. He was taken back to the operating room and laid on the table in supine position. He was given basic sedation. The operative knee was then prepped and draped in sterile fashion. A timeout was done, and the patient and the operative extremity was properly identified. A midline incision was made directly over the patella. Dissection was taken down to the extensor mechanism. A subvastus arthrotomy was used. The medial retinaculum was released and the fat pad was mostly excised. The knee was flexed and the ACL, PCL, and meniscus were removed. A drill was sent down the center of the femoral canal followed by an intramedullary jorge. Off that jorge a distal femoral cutting block was placed. 9 mm was resected off the distal femur at 5 of valgus. A posterior referencing AP sizing guide was then placed on the distal femur. The femur measured to be a size 9. 2 drill holes were placed in 3 of external rotation. A 4-in-1 cutting block was then impacted into place. Anterior, posterior, and chamfer cuts were then made. The proximal tibia was then exposed. An external tibial alignment guide was placed. A tibial cut guide was then anchored in place and the proximal tibia was then resected. The posterior aspect of the knee was then opened up and any additional meniscus fragments and osteophytes were removed. The tibia measured to be a size F. The tibial plate was then placed in the appropriate rotation and the tibia was drilled and punched. Trial components were then placed. I used a size 12 CPS polyethylene insert. The knee was brought through a full range of motion and felt to be stable. The peg holes for the femoral component were then drilled. The patella was then everted and 9 mm was resected off the posterior aspect of the patella. The patella measured to be a size 34 oval. 3 peg holes were then drilled. A trial patella was placed. The knee was once again brought through a full range of motion and felt to be stable. Trial components were then removed. The surrounding soft tissues were injected with 100 cc of an orthopedic pain control cocktail. All components were then cemented into place with Biomet cement. The final polyethylene insert was then snapped into place. Once cement was dry the tourniquet was deflated. Hemostasis was obtained. A dilute betadyne lavage was then done for 3 minutes. The joint was then irrigated with normal saline solution. The subvastus arthrotomy was then closed with #1 Vicryl suture. The skin was closed with 2-0 Vicryl, 3-0V lock suture, and ruben. A soft compressive dressing was placed. He was then transferred to a hospital bed and taken to the postanesthesia care unit in stable condition. He tolerated the procedure well. Trung Cummings PA-C, was present for the entire procedure. He was critical for patient positioning, prepping, draping, retraction exposure, wound closure and application of sterile dressing. I attest to the content of the Intraoperative Record and any orders documented therein. Any exceptions are noted below.
[2024-06-12] MEDS ORDERED: PROPOFOL IV EMULSION 10 MG/ML 20 ML VIAL IV ONE (13:10)
[2024-06-12] MEDS ORDERED: PHENYLEPHRINE 100MCG/ML 10ML SYR IV ONE (13:10)
[2024-06-12] MEDS ORDERED: ONDANSETRON INJ 2 MG/ML 2 ML VIAL ONE (13:10)
--- NOTE | 2024-06-12 14:20 | XRay Report ---
TWO VIEWS RIGHT KNEE CLINICAL HISTORY: Postoperative examination. FINDINGS: AP and crosstable lateral portable views of the right knee are obtained. A right knee arthr oplasty is in near anatomic alignment. There has been undersurface remodeling of the patella. No acut e fracture is seen. There are expected postoperative changes around the knee including skin clips, so ft tissue edema, and subcutaneous gas. IMPRESSION: Expected postoperative changes status post right knee arthroplasty. No acute fracture is seen. ACT 112: Negative or not required by law. Electronically signed by: Rio Laurent M.D. 06/12/2024 2:18 PM
--- NOTE | 2024-06-12 14:40 | Anesthesiology Progress Note ---
Date of Service June 12, 2024 Anesthesia Post Procedure Vital Signs Vital Signs: Temp Pulse Resp BP Pulse Ox O2 Del Method O2 Flow Rate 06/12/24 14:30 37.0 C 77 20 114/79 94 Nasal Cannula 2 06/12/24 14:20 37.0 C 79 20 128/79 96 Room Air 06/12/24 14:10 88 15 135/85 94 Room Air 06/12/24 14:00 76 14 123/75 95 Oxymask 2 06/12/24 13:50 78 15 110/78 99 Oxymask 3 06/12/24 13:40 71 15 117/71 99 Oxymask 3 06/12/24 13:30 75 17 123/76 97 Oxymask 3 06/12/24 13:23 36.2 C L 71 14 116/64 96 Oxymask 5 06/12/24 10:29 Nasal Cannula 2 06/12/24 10:16 37 C 90 20 153/95 H 93 Room Air Pain Intensity Right Knee: Pain Intensity: 6 Transfer of Care Handoff Completed per policy Notes Mental Status: alert / awake / arousable Patient Amnestic to Procedure: Yes Nausea / Vomiting: adequately controlled Pain: adequately controlled Airway Patency, RR, SpO2: stable & adequate BP & HR: stable & adequate Hydration State: stable & adequate Neuraxial Anesthesia: was administered and sensory block is resolving Anesthetic Complications: no major complications apparent and Pt Satisfied with anesthetic care
[2024-06-12] MEDS ORDERED: MAGNESIUM HYDROXIDE SUSP 30 ML UDC PO PRN (15:07)
[2024-06-12] MEDS ORDERED: PANTOprazole 40 MG TAB PO PRN (15:07)
[2024-06-12] MEDS ORDERED: METOPROLOL TARTRATE 25 MG TAB PO PRN (15:07)
[2024-06-12] MEDS ORDERED: NALOXONE HCL 0.4 MG/1 ML VIAL/CARP IV PRN (15:07)
[2024-06-12] MEDS ORDERED: METOCLOPRAMIDE HCL INJ 5 MG/ML 2 ML VIAL IV PRN (15:07)
[2024-06-12] MEDS ORDERED: ALBUT/IPRATROP 3MG/0.5MG NEB 3 ML VIAL INH PRN (15:07)
[2024-06-12] MEDS ORDERED: PHARMACY GLYCEMIC MGMT CONSULT PRN (15:07)
[2024-06-12] MEDS ORDERED: bisacodyL 10 MG SUPP PR PRN (15:07)
[2024-06-12] MEDS ORDERED: ALBUTEROL HFA 8 GM INHALER INH PRN (15:07)
[2024-06-12] MEDS ORDERED: GLUCOSE 10 TAB/TUBE PO PRN (16:00)
[2024-06-12] MEDS ORDERED: DEXTROSE 50% 50 ML SYRINGE IV PRN (16:00)
[2024-06-12] MEDS ORDERED: GLUCAGON FOR INJ 1 MG VIAL IM PRN (16:00)
[2024-06-12] MEDS ORDERED: CARBOHYDRATES FOR HYPOGLYCEMIA PO PRN (16:00)
[2024-06-12] MEDS ORDERED: GLUCOSE 40% GEL 15 GM TUBE PO PRN (16:00)
[2024-06-12] MEDS: GABAPENTIN 300 MG CAP PO SCH (16:05)
[2024-06-12] MEDS: SODIUM CHLORIDE 0.9% 1,000 ML IV SCH (16:41)
[2024-06-12] MEDS: oxyCODONE HCL IR 5 MG TAB (IMMEDIATE RELEASE) PO PRN (16:45)
[2024-06-12] MEDS: KETOROLAC 30 MG/ML VIAL IV SCH (17:10)
[2024-06-12] MEDS: INSULIN ASPART PER UNIT CHARGE SC SCH (17:16)
[2024-06-12] MEDS: HYDROmorphone INJ 0.5 MG/0.5 ML SYR IV PRN (17:55)
[2024-06-12] MEDS: ATORVASTATIN 40 MG TAB PO SCH (21:11)
[2024-06-12] MEDS: TAMSULOSIN HCL 0.4 MG CAP PO SCH (21:11)
[2024-06-12] MEDS: SENNA 8.6 MG TAB PO SCH (21:12)
[2024-06-12] MEDS: DOCUSATE SODIUM 100 MG CAP PO SCH (21:13)
[2024-06-12] MEDS: ASPIRIN 81 MG ECTAB PO SCH (21:13)
[2024-06-13] MEDS: INSULIN ASPART PER UNIT CHARGE SC SCH (01:54)
[2024-06-13] MEDS: DULoxetine HCL 60 MG CAP PO SCH (08:25)
[2024-06-13] MEDS: MULTIVITAMIN TAB PO SCH (08:25)
[2024-06-13] MEDS: ERGOCALCIFEROL 1250 MCG (50,000 UNITS) CAP PO SCH (08:25)
[2024-06-13] MEDS: FLUTICASONE FUROATE 100MCG 14 PUFFS/INHALER INH SCH (08:25)
[2024-06-13] MEDS: UMECLIDINIUM/VILANTEROL 62.5/25MCG 7 PUFFS/INHALER INH SCH (08:26)
--- NOTE | 2024-06-13 08:38 | Orthopedic Progress Note ---
Date of Service June 13, 2024 Assessment & Plan (1) Status post right knee replacement: Overall he is doing very well. He is not having much pain in the right knee. He will be seen by physical therapy today for ambulation and range of motion exercises. He is on aspirin for DVT prophylaxis. We will continue to monitor his oxygen levels throughout the morning. If his oxygen saturations remain above 91% then he can be discharged home today. Delbert Dsouza was seen and examined at bedside this morning. Overall he is doing very well. He is not having much pain in the right knee. He has been up and ambulating to the bathroom. His oxygen saturations are a little bit low. He is currently 86% on room air. He is asymptomatic. Will see how he does this morning with physical therapy. He has no other complaints. Review of Systems All systems reviewed & are unremarkable except as noted in HPI & below. Physical Exam On physical examination of the right knee, the dressing is clean and dry. His leg is out full extension. He has active dorsiflexion and plantarflexion of his right ankle.. Results & Data Results & Data Laboratory Results . Diagnostic Findings Postoperative x-rays of the right knee show the prosthesis to be in anatomic alignment without any evidence of fracture complication, or loosening.. PG Care Time/CCT Total # of Minutes Spent Total Time Spent with Patient: Total time spent is greater than 50% in coordination of care (as documented) at patient's floor/unit and/or counseling patient: Coding Level of Care Code 69617 Post Operative Follow-Up Diagnoses Status post right knee replacement Z96.651
[2024-06-13] MEDS ORDERED: NON-FORMULARY MEDICATION (Fluticasone-Umeclidin-Vilanter [Trelegy Ellipta] 100-62.5-25 mcg INH SCH (09:00)
[2024-06-13 11:11] VITALS: BP 125/73; PULSE 81; RESP 14; TEMP 98.4
[2024-06-13 13:08] VITALS: O2SAT 97
== END 2024-06-13 11:33 | disposition home health service (06) ==
LOC: 3E 09:54 → ASU 09:54

== ENCOUNTER 2024-11-06 06:52 | Observation (INO) ==
--- NOTE | 2024-10-26 11:20 | Anesthesiology Consultation ---
Date of Service October 26, 2024 Assessment & Plan (1) Encounter for pre-operative examination: Chart Review Chart Review: Acceptable Risk for Surgery and Patient NOT seen in Pre Admission Testing - addendum Alma Mcadams PA-C 10/30/24: Josi had noted just awaiting PCP note regarding BP. PCP office note 10/28/24 [place]: "...tolerating olmesartan...blood pressure is acceptable...medically stable as he can be for upcoming surgery..." -Pt is s/p R TKA 07/13/24: MAC, SAB (L4-5 x 1 attempt), PNB (x 1 attempt); no issues with anesthesia. Done as OBS. -Pt is currently scheduled for inpatient pathway. If re-evaluated and patient/surgeon requests outpatient pathway, patient is not ideal candidate for outpatient joint program from anesthesia standpoint. Infectious Disease screening: Per PAT nursing assessment on 10/23/24, No known infectious disease contacts in past 10 days or current infectious disease symptoms. No recent travel outside the country. History Surgery Operation Date: 11/06/24 10:40 Proposed Procedures p Left Total Knee Arthroplasty - Trung Fernandez, Height/Weight Height: 5 ft 8 in Weight: 83.915 kg Allergies Allergy/AdvReac Type Severity Reaction Status Date / Time naproxen Allergy Intermediate Severe Rash Verified 10/29/24 08:17 bee venom protein (honey bee) AdvReac Severe Syncope Verified 10/29/24 08:17 tramadol AdvReac Intermediate Gastrointestinal Verified 10/29/24 08:17 Upset Medications Home Medications Medication Instructions Recorded Confirmed Last Taken blood sugar diagnostic (TXCOMTouch #100 ea 02/15/21 09/17/24 Unknown Verio test strips) lancets 33 gauge (OneTouch Delica #100 ea 02/15/21 09/17/24 Unknown Lancets) epinephrine 0.3 mg/0.3 mL 0.3 mg IM DIRECTED PRN Allergic 02/21/22 10/29/24 Unknown injection, auto-injector (EpiPen) Reaction ipratropium 0.5 mg-albuterol 3 mg 3 ml inhalation QID PRN Shortness 10/22/22 10/29/24 2 Days Ago (2.5 mg base)/3 mL nebulization Of Breath #180 mL ~06/10/24 soln Oxygen Home #1 ea 07/17/23 09/17/24 Unknown pantoprazole 40 mg tablet,delayed 40 mg PO BID PRN Acid Reflux 07/30/23 10/29/24 10 Days Ago release (Protonix) ~06/02/24 albuterol sulfate 90 mcg/actuation 2 puff inhalation Q4H PRN Wheezing 11/28/23 10/29/24 2 Days Ago aerosol inhaler #8.5 grams ~06/10/24 Walking Cane #1 ea 12/06/23 09/17/24 Unknown atorvastatin 80 mg tablet (Lipitor) 80 mg PO HS #90 tabs 05/11/24 10/29/24 06/10/24 ergocalciferol (vitamin D2) 1,250 50,000 unit PO WEEKLY #8 caps 09/17/24 10/29/24 Unknown mcg (50,000 unit) capsule icosapent ethyl 1 gram capsule 2 g (2 x 1 gram) PO BID #120 caps 09/17/24 10/29/24 Unknown (Vascepa) morphine 15 mg tablet,extended 15 mg PO Q12H #60 tabs 10/12/24 10/29/24 Unknown release aspirin 81 mg tablet,delayed 81 mg PO QAM 10/23/24 10/29/24 Unknown release duloxetine 60 mg capsule,delayed 60 mg PO QAM 10/23/24 10/29/24 Unknown release (Cymbalta) gabapentin 300 mg capsule 900 mg PO TID 10/23/24 10/29/24 Unknown (Neurontin) olmesartan 5 mg tablet 5 mg PO QAM 10/23/24 10/29/24 Unknown oxycodone 15 mg tablet 15 mg PO Q6H #90 tabs 10/23/24 10/23/24 Unknown fluticasone fur. 100 mcg-umeclid 1 inh inhalation QAM #60 ea 10/29/24 10/29/24 Unknown 62.5 mcg-vilant 25 mcg inhalat.powder (Trelegy Ellipta) Past Medical History Medical History (Updated 10/26/24 @ 12:48 by Josi Lawrence PA-C) Arthritis AVN of femur mild AVN B/L femoral heads noted on 04/2023 Abd/Pelvis CT; unchanged from previous; following with ortho Chronic back pain Chronic bronchitis Chronic CHF Dr Muñoz Chronic hypoxemic respiratory failure Dr Trimble; on Home O2 HS 2L and PRN daytime Chronic knee pain Chronic neck pain Chronic obstructive pulmonary disease controlled with daily inhaler-- average use 4-5 times monthly - Dr Trimble Chronic pain syndrome with chronic narcotic use Cigarette smoker Diabetes mellitus type 2, uncontrolled Diet Diverticulitis with colon perforation 04/25/23- admitted to [facility] - initially treated with IV abxs and fluids- s/p sigmoid colectomy with diverting colostomy 04/29/23 Dyshidrotic eczema Edema of knee-denies other edema GERD (gastroesophageal reflux disease) controlled, stable per pt History of anemia [place] (hard of hearing) wears bilateral hearing aides Hx of chest pain (05/11/24) states "over exerted" himself; hospitalized at [facility] (had a negative stress test) - No issues since Hx of gastric ulcer early 2022. no current issues. Hx of pulmonary hypertension (2019) Normal RVSP on 10/2022 ECHO Mild pulm HTN on 2019 RHC- PA pressure: 37/19 with a mean of 25 mmHg. Hx of supraventricular tachycardia pt unaware; follows with Dr Muñoz Hx of tinnitus Hx: recurrent pneumonia 2019+2020+ most recently hospitalized at [facility] in 2021. no problems since. Hyperlipemia reports he is not currently taking statin medication daily. Hypertension BP elevated; olmesartan added at 09/17/24 PCP visit; awaiting f/u NSTEMI (non-ST elevated myocardial infarction) (~2019) NSTEMI 2019- cardiac cath showed no CAD. Dr Muñoz On home oxygen therapy 2L O2 at night and PRN daytime SAUL (obstructive sleep apnea) 2L of O2 via NC HS; does not tolerate CPAP Osteoarthritis Polyneuropathy feet bilateral Renal insufficiency 09/16/24 eGFR 105.75 Sigmoid diverticulitis hx 04/2023 -- exploratory lap with colostomy creation-with later reversal Urinary frequency nocturia Past Family History Family History Father Heart disease age 37 - "heart attack" Hypertension Brother Coronary heart disease Hypertension Aunt Breast cancer Mother Hypertension Thyroid disease Other Allergies Cancer Diabetes No family history of adverse response to anesthesia No significant family history Denies family history of Tuberculosis Ovarian cancer Prostate cancer Emphysema, unspecified Colorectal cancer Lung disease Asthma Past Surgical History Surgical History (Updated 10/26/24 @ 12:40 by Josi Lawrence PA-C) H/O cardiac catheterization 07/2020 [facility]; 'no significant CAD'; follows with H/O exploratory laparotomy (04/29/23) with colostomy creation - r/t diverticulitis. H/O vasectomy + Reversal History of cholecystectomy History of colon resection (04/29/23) Exploratory Laparotomy, Sigmoid colectomy with Diverting Colostomy, Takedown enterocolonic fistula with primary Repair(Not Applicable) - Bernard Rocha, History of colonoscopy History of colostomy reversal (08/08/23) Laparoscopic Reversal Colostomy, extensive enterolysis - Bernard Rocha DO History of esophagogastroduodenoscopy (EGD) History of tonsillectomy History of tooth extraction Hx of appendectomy Hx of arthroscopic knee surgery Bilateral S/P cervical spinal fusion C3-C6 -> ROM slightly limited with numbness down the right arm. Status post right knee replacement (~05/2024) R TKA 07/13/24: MAC, SAB (L4-5 x 1 attempt), PNB (x 1 attempt); no issues with anesthesia Social History Smoking Status: Current every day smoker tobacco type: cigarettes Smoking cigarettes per day: 1/2 to 3/4 pack Do You Dip or Chew Tobacco: No Hx Alcohol Use: No Alcohol type: beer alcohol intake frequency: holidays/special occasions only Hx Substance Use: No substance use type: does not use Lab Results Anesthesia Preop Results Results Anesthesia Widget: WBC 10.47 K/ul (4.8-10.8) 09/16/24 Hgb 13.0 g/dl (14.0-18.0) L 09/16/24 Hct 39.4 % (42.0-52.0) L 09/16/24 Plt 348 K/uL (130-400) 09/16/24 Na 140 mmol/L (136-145) 09/16/24 K 3.5 mmol/L (3.5-5.1) 09/16/24 Cl 103 mmol/L (98-107) 09/16/24 CO2 29 mmol/L (21-32) 09/16/24 BUN 10 mg/dl (6-23) 09/16/24 Creat 0.68 mg/dl (0.6-1.4) 09/16/24 Glucose Level 94 mg/dl (70-99(Fasting)) 09/16/24 HA1c 6.0 % (4.5-5.6) H 09/16/24 Urine Color Yellow 09/16/24 Urine Appearance Clear (Clear) 09/16/24 Urine pH 6.0 (4.5-7.5) 09/16/24 Urine Specific [place] 1.005 (1.000-1.030) 09/16/24 Urine Protein Negative (Negative) 09/16/24 Urine Glucose (UA) Negative (Negative) 09/16/24 Urine Ketones Negative (Negative) 09/16/24 Urine Blood Negative (Negative) 09/16/24 Urine Nitrite Negative (Negative) 09/16/24 Urine Bilirubin Negative (Negative) 09/16/24 Urine Urobilinogen Negative (Negative) 09/16/24 Urine Leukocyte Esterase Negative (Negative) 09/16/24 Testing Electrocardiogram Date: 05/10/24 ST @ 110bpm. Poor R wave progression anterior leads. Compared to 07/2023, Vent Rate increased by 44bpm. iRBBB no longer present. Chest X-Ray Date: 05/10/24 Findings: + NAD Echocardiogram Date: 05/11/24 EF: 60-65% LV Function: normal RWMA: + none Valvular Disease: + no significant valvular disease Mod cLVH. Gr I DD. Stress Test Date: 05/11/24 Type: DSE Findings: + WNL Resting LV Function: normal Resting RWMA: + none Negative DSE for ischemia at 129% MPHR. Negative Dobutamine ECG for ischemia at 129% MPHR Appropriate BP response No arrhythmia CP reported following atropine administration and quickly resolved with improved HR Other Testing Low Dose Lung CT 02/26/24: 1. Emphysema without acute intrathoracic abnormality. 2. No suspicious pulmonary nodules. Cervical Spine CT 04/04/23: Postsurgical and degenerative changes without evidence of acute fracture.
--- NOTE | 2024-11-05 13:18 | History & Physical Report ---
Date of Service November 05, 2024 Assessment & Plan (1) Left knee DJD: We will proceed with a left total knee arthroplasty. Postoperatively he will be started on aspirin for DVT prophylaxis and kept overnight in the hospital for postop medical management. He plans to have the hospital set up home health for discharge. History of Present Illness Chief Complaint: Osteoarthritis left knee. Primary Care Provider: Mansoor Zhao MD Meet is a pleasant 59-year-old male who has been dealing with chronic increasing left knee pain. I did a right knee replacement on him 6 months ago. He did very well with that. Unfortunately he is dealing with left knee pain. X-rays and clinical exam have been diagnostic for advanced arthritis of the left knee. After failed conservative treatment, he has elected to proceed with a left total knee arthroplasty.. Allergies Allergy/AdvReac Type Severity Reaction Status Date / Time naproxen Allergy Intermediate Severe Rash Verified 10/29/24 08:17 bee venom protein (honey bee) AdvReac Severe Syncope Verified 10/29/24 08:17 tramadol AdvReac Intermediate Gastrointestinal Verified 10/29/24 08:17 Upset Home Medications Medication Instructions Recorded Confirmed Type blood sugar diagnostic (OneTouch #100 ea 02/15/21 09/17/24 Rx Verio test strips) lancets 33 gauge (OneTouch Delica #100 ea 02/15/21 09/17/24 Rx Lancets) epinephrine 0.3 mg/0.3 mL 0.3 mg IM DIRECTED PRN Allergic 02/21/22 10/29/24 History injection, auto-injector (EpiPen) Reaction ipratropium 0.5 mg-albuterol 3 mg 3 ml inhalation QID PRN Shortness 10/22/22 10/29/24 Rx (2.5 mg base)/3 mL nebulization Of Breath #180 mL soln Oxygen Home #1 ea 07/17/23 09/17/24 Rx pantoprazole 40 mg tablet,delayed 40 mg PO BID PRN Acid Reflux 07/30/23 10/29/24 History release (Protonix) albuterol sulfate 90 mcg/actuation 2 puff inhalation Q4H PRN Wheezing 11/28/23 10/29/24 Rx aerosol inhaler #8.5 grams Walking Cane #1 ea 12/06/23 09/17/24 Rx atorvastatin 80 mg tablet (Lipitor) 80 mg PO HS #90 tabs 05/11/24 10/29/24 Rx ergocalciferol (vitamin D2) 1,250 50,000 unit PO WEEKLY #8 caps 09/17/24 10/29/24 Rx mcg (50,000 unit) capsule icosapent ethyl 1 gram capsule 2 g (2 x 1 gram) PO BID #120 caps 09/17/24 10/29/24 Rx (Vascepa) morphine 15 mg tablet,extended 15 mg PO Q12H #60 tabs 10/12/24 10/29/24 Rx release aspirin 81 mg tablet,delayed 81 mg PO QAM 10/23/24 10/29/24 History release duloxetine 60 mg capsule,delayed 60 mg PO QAM 10/23/24 10/29/24 History release (Cymbalta) gabapentin 300 mg capsule 900 mg PO TID 10/23/24 10/29/24 History (Neurontin) olmesartan 5 mg tablet 5 mg PO QAM 10/23/24 10/29/24 History oxycodone 15 mg tablet 15 mg PO Q6H #90 tabs 10/23/24 10/23/24 Rx fluticasone fur. 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 Emphysema without acute intrathoracic abnormality. 2. 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 noted on 04/2023 Abd/Pelvis CT; unchanged from previous; following with ortho Cigarette smoker Chronic pain syndrome with chronic narcotic use Diverticulitis with colon perforation 04/25/23- admitted to [facility] - initially treated with IV abxs and fluids- s/p sigmoid colectomy with diverting colostomy 04/29/23 Arthritis Dyshidrotic eczema Chronic bronchitis Renal insufficiency 09/16/24 eGFR 105.75 Edema of knee-denies other edema Chronic hypoxemic respiratory failure Dr Trimble; on Home O2 HS 2L and PRN daytime Chronic knee pain Hx of chest pain (05/11/24) states "over exerted" himself; hospitalized at [facility] (had a negative stress test) - No issues since Hx of gastric ulcer early 2022. no current issues. SAUL (obstructive sleep apnea) 2L of O2 via NC HS; does not tolerate CPAP Sigmoid diverticulitis hx 04/2023 -- exploratory lap with colostomy creation-with later reversal Hx of supraventricular tachycardia pt unaware; follows with Dr Wanda [place] (hard of hearing) wears bilateral hearing aides Hx: recurrent pneumonia 2019+2020+ most recently hospitalized at [facility] in 2021. no problems since. Osteoarthritis Hypertension BP elevated; olmesartan added at 09/17/24 PCP visit; awaiting f/u Chronic CHF Dr Muñoz Chronic obstructive pulmonary disease controlled with daily inhaler-- average use 4-5 times monthly - Dr Trimble Hx of tinnitus History of anemia Hx of pulmonary hypertension (2019) Normal RVSP on 10/2022 ECHO Mild pulm HTN on 2019 RHC- PA pressure: 37/19 with a mean of 25 mmHg. Chronic neck pain Chronic back pain Urinary frequency nocturia On home oxygen therapy 2L O2 at night and PRN daytime Diabetes mellitus type 2, uncontrolled Diet Polyneuropathy feet bilateral Hyperlipemia reports he is not currently taking statin medication daily. GERD (gastroesophageal reflux disease) controlled, stable per pt NSTEMI (non-ST elevated myocardial infarction) (~2019) NSTEMI 2019- cardiac cath showed no CAD. Dr Muñoz Surgical History Status post right knee replacement (~05/2024) R TKA 07/13/24: MAC, SAB (L4-5 x 1 attempt), PNB (x 1 attempt); no issues with anesthesia History of colostomy reversal (08/08/23) Laparoscopic Reversal Colostomy, extensive enterolysis - Bernard Rocha DO History of colon resection (04/29/23) Exploratory Laparotomy, Sigmoid colectomy with Diverting Colostomy, Takedown enterocolonic fistula with primary Repair(Not Applicable) - Bernard Rocha DO History of esophagogastroduodenoscopy (EGD) History of tonsillectomy H/O exploratory laparotomy (04/29/23) with colostomy creation - r/t diverticulitis. H/O vasectomy + Reversal History of colonoscopy History of tooth extraction History of cholecystectomy Hx of appendectomy S/P cervical spinal fusion C3-C6 -> ROM slightly limited with numbness down the right arm. Hx of arthroscopic knee surgery Bilateral H/O cardiac catheterization 07/2020 [facility]; 'no significant CAD'; follows with Family History Father Heart disease age 37 - "heart attack" Hypertension Brother Coronary heart disease Hypertension Aunt Breast cancer Mother Hypertension Thyroid disease Other Allergies Cancer Diabetes No family history of adverse response to anesthesia No significant family history Denies family history of Tuberculosis Ovarian cancer Prostate cancer Emphysema, unspecified Colorectal cancer Lung disease Asthma Social History Smoking Status: Current every day smoker Tobacco Type: Cigarettes Age Started Using Tobacco: 19; packs per day: 1; Cigarettes Per Day: 1/2 to 3/4 pack; Second Hand Exposure: No; Do You Dip or Chew Tobacco: No; Tobacco Cessation Education Requested by Patient: No Hx Alcohol Use: No Hx Substance Use: No Preferred Language: Hebrew Communication Ability: Effective Visual Impairment: No Limitations Hearing Ability: Normal Software Consultant Required: No Beliefs That Will Affect Care: None marital status: Current Living Situation: Spouse Current Living Situation Comment: and son current occupational status: disabled Other Information That Helps Us Care for You: No Feels Safe at Home: Yes Safety Concerns: Feels Safe At This Time Childhood Exposure to Second-Hand Smoke: Yes Diet: low carbohydrate and other Diet Comment: no fiber caffeine: Yes Dental Care, Regularly: No Physical Activity Frequency: Does not Exercise Seatbelt Use: always Sunscreen Use: No Assistive Devices: Glasses, Hearing Aid - Bilateral and Oxygen - at Night Review of Systems All systems reviewed & are unremarkable except as noted in HPI & below. Physical Exam On physical exam of the left knee, he has tenderness palpation of the distal medial femoral condyle and over the medial joint line.. Constitutional WD/WN, vitals as above Eyes PERRL, conjunctivae normal, anicteric sclerae ENMT external ear and nose normal, oropharynx normal Neck trachea midline, no thyromegaly Respiratory normal respiratory effort Cardiovascular RRR, no murmur, no edema Gastrointestinal (Abdomen) normal bowel sounds, soft, nontender, no hepatosplenomegaly Psychiatric A+Ox3, euthymic affect Results & Data Results & Data Laboratory Results . Diagnostic Findings X-rays of the left knee show advanced osteoarthritis with some joint space narrowing and osteophyte formation.. PG Care Time/CCT Total # of Minutes Spent Total Time Spent with Patient: Total time spent is greater than 50% in coordination of care (as documented) at patient's floor/unit and/or counseling patient: Coding Level of Care Code None Diagnoses Left knee DJD M17.12
[~2024-11-06 06:52] MED LIST changes: -ACETAMINOPHEN 500 MG TAB PO SCH; +EPINEPHrine INJ 1 MG/ML AMP ONE; -FAMOTIDINE 20 MG TAB PO SCH; -GABAPENTIN 600 MG DOSE PO SCH; -LR 500ML BOLUS, THEN 15ML/HR IV SCH; -LR 60ML/HR IV SCH; -ROPIV 0.5% 246mg, Ketorolac 30mg, EPINEPHrine 0.5mg in NSS INFIL SCH; -TRANEXAMIC ACID 1,000 MG **IV Intra-op IV SCH; -TRANEXAMIC ACID 1,000 MG **IV Pre-op IV SCH; -ceFAZolin 2000MG 2,000 MG/15 ML SYR IV SCH; -dexAMETHasone**PF** 10 MG/ML VIAL IV SCH
[2024-11-06] MEDS: LR 500ML BOLUS, THEN 15ML/HR IV SCH (07:55)
[2024-11-06] MEDS: FAMOTIDINE 20 MG TAB PO SCH (07:58)
[2024-11-06] MEDS: ACETAMINOPHEN 500 MG TAB PO SCH ×2 (07:58→16:20)
[2024-11-06] MEDS: LR 60ML/HR IV SCH (07:58)
[2024-11-06] MEDS: dexAMETHasone**PF** 10 MG/ML VIAL IV SCH (07:59)
--- NOTE | 2024-11-06 08:08 | History & Physical Bridge Note ---
Date of Service November 06, 2024 History & Physical Bridge Note I have examined the patient, reviewed the History & Physical and in the interval since the performance of the History & Physical I have noted the following changes of clinical significance: no changes noted
[2024-11-06 08:09] LABS: INR 0.9 (0.9-1.1); Partial Thromboplastin Time 27 Seconds (21-31); Prothrombin Time 10.1 Seconds (9.0-12.0)
[2024-11-06] MEDS: GABAPENTIN 600 MG DOSE PO SCH (08:15)
[2024-11-06] MEDS ORDERED: PHENYLEPHRINE 100MCG/ML 5ML SYR ONE (08:35)
[2024-11-06] MEDS ORDERED: fentaNYL citrate PF 100 MCG/2 ML VIAL ONE (08:36)
[2024-11-06] MEDS ORDERED: MIDAZOLAM HCL 1 MG/ML 2ML VIAL ONE (08:37)
[2024-11-06] MEDS: TRANEXAMIC ACID 1,000 MG **IV Pre-op IV SCH (08:41)
[2024-11-06] MEDS: ceFAZolin 2000MG 2,000 MG/15 ML SYR IV SCH ×2 (09:10→16:25)
[2024-11-06] MEDS ORDERED: PROPOFOL IV EMULSION 10 MG/ML 20 ML VIAL IV ONE (09:13)
[2024-11-06] MEDS: ORTHO JOINT ANESTHETIC ONE (09:32)
[2024-11-06] MEDS: ROPIV 0.5% 246mg, Ketorolac 30mg, EPINEPHrine 0.5mg in NSS INFIL SCH (09:32)
[2024-11-06] MEDS: TRANEXAMIC ACID 1,000 MG **IV Intra-op IV SCH (10:02)
--- NOTE | 2024-11-06 10:04 | Operative Report ---
PG Post Operative Report Pre & Post Diagnosis Operation Date: 11/06/24 09:00 Pre-Op Diagnosis: Left Knee Degenerative Joint Disease Post-Op Diagnosis: Left Knee Degenerative Joint Disease I identified the patient and participated in the time-out.: Yes Procedure Operation Date: 11/06/24 09:00 Actual Procedures p Left Total Knee Arthroplasty(Left) - Trung Fernandez DO Surgeon rTung Fernandez DO K9 Handler Edmond Maldonado PA-C Estimated Blood Loss 50 Findings Consistent with Post-Op Diagnosis Specimens Left femoral tibial bone Description of Procedure Implants used: I used a Angel Person[employer] total knee arthroplasty system with a size 9 standard PS femur, F tibia, 34 oval patella, and a size 10 CPS polyethylene bearing. All components were cemented in place with Biomet cement. Meet arrived [facility] for the above procedure. He was seen in the preoperative holding area and the operative extremity was identified and signed. He was given a preoperative antibiotic, TXA, a spinal anesthetic and an adductor nerve block. He was taken back to the operating room and laid on the table in supine position. He was given basic sedation. The operative knee was then prepped and draped in sterile fashion. A timeout was done, and the patient and the operative extremity was properly identified. A midline incision was made directly over the patella. Dissection was taken down to the extensor mechanism. A medial parapatellar arthrotomy was used. The medial retinaculum was released and the fat pad was mostly excised. The knee was flexed and the ACL, PCL, and meniscus were removed. A drill was sent down the center of the femoral canal followed by an intramedullary jorge. Off that jorge a distal femoral cutting block was placed. 9 mm was resected off the distal femur at 5 of valgus. A posterior referencing AP sizing guide was then placed on the distal femur. The femur measured to be a size 9. 2 drill holes were placed in 3 of external rotation. A 4-in-1 cutting block was then impacted into place. Anterior, posterior, and chamfer cuts were then made. The proximal tibia was then exposed. An external tibial alignment guide was placed. A tibial cut guide was then anchored in place and the proximal tibia was then resected. The posterior aspect of the knee was then opened up and any additional meniscus fragments and osteophytes were removed. The tibia measured to be a size F. The tibial plate was then placed in the appropriate rotation and the tibia was drilled and punched. Trial components were then placed. I used a size 10 CPS polyethylene insert. The knee was brought through a full range of motion and felt to be stable. The peg holes for the femoral component were then drilled. The patella was then everted and 9 mm was resected off the posterior aspect of the patella. The patella measured to be a size 34 oval. 3 peg holes were then drilled. A trial patella was placed. The knee was once again brought through a full range of motion and felt to be stable. Trial components were then removed. The surrounding soft tissues were injected with 100 cc of an orthopedic pain control cocktail. All components were then cemented into place with Biomet cement. The final polyethylene insert was then snapped into place. Once cement was dry the tourniquet was deflated. Hemostasis was obtained. A dilute betadyne lavage was then done for 3 minutes. The joint was then irrigated with normal saline solution. The medial parapatellar arthrotomy was then closed with #1 Vicryl suture. The skin was closed with 2-0 Vicryl, 3-0V lock suture, and ruben. A soft compressive dressing was placed. He was then transferred to a hospital bed and taken to the postanesthesia care unit in stable condition. He tolerated the procedure well. Edmond Maldonado PA-C, was present for the entire procedure. He was critical for patient positioning, prepping, draping, retraction exposure, wound closure and application of sterile dressing. I attest to the content of the Intraoperative Record and any orders documented therein. Any exceptions are noted below.
[2024-11-06] MEDS ORDERED: ePHEDrine sulfate 50 MG/ML AMP IV PRN (10:32)
[2024-11-06] MEDS ORDERED: ATROPINE SULFATE 0.1 MG/ML 10ML SYR IV PRN (10:32)
--- NOTE | 2024-11-06 11:07 | XRay Report ---
XR knee LT 1 or 2V routine CLINICAL HISTORY: Surgical Post Op COMPARISON: None FINDINGS: Right knee prosthesis shows no hardware complication. There is expected soft tissue gas. S kin ruben are present. IMPRESSION: Unremarkable postoperative exam. ACT 112: Negative or not required by law. Electronically signed by: Tai Moreira M.D. 11/06/2024 11:06 AM
--- NOTE | 2024-11-06 11:37 | Anesthesiology Progress Note ---
Date of Service November 06, 2024 Anesthesia Post Procedure Vital Signs Vital Signs: Temp Pulse Pulse Resp BP Pulse Ox O2 Del Method 11/06/24 11:20 77 20 168/91 H 93 Room Air 11/06/24 11:05 80 24 167/87 H 94 Room Air 11/06/24 10:55 36.9 C 88 18 174/88 H 97 Room Air 11/06/24 10:45 79 18 159/91 H 93 Room Air 11/06/24 10:35 85 20 158/88 H 94 Room Air 11/06/24 10:27 36.4 C L 87 11 L 153/76 H 97 Room Air 11/06/24 07:40 37.1 C 96 H 20 167/101 H 96 Room Air Transfer of Care Handoff Completed per policy Notes Mental Status: alert / awake / arousable Patient Amnestic to Procedure: Yes Nausea / Vomiting: adequately controlled Pain: adequately controlled Airway Patency, RR, SpO2: stable & adequate BP & HR: stable & adequate Hydration State: stable & adequate Anesthetic Complications: no major complications apparent
--- NOTE | 2024-11-06 11:48 | Anesthesiology Progress Note ---
Date of Service November 06, 2024 Anesthesia Post Procedure Vital Signs Vital Signs: Temp Pulse Pulse Resp BP Pulse Ox O2 Del Method 11/06/24 11:20 77 20 168/91 H 93 Room Air 11/06/24 11:05 80 24 167/87 H 94 Room Air 11/06/24 10:55 36.9 C 88 18 174/88 H 97 Room Air 11/06/24 10:45 79 18 159/91 H 93 Room Air 11/06/24 10:35 85 20 158/88 H 94 Room Air 11/06/24 10:27 36.4 C L 87 11 L 153/76 H 97 Room Air 11/06/24 07:40 37.1 C 96 H 20 167/101 H 96 Room Air Transfer of Care Handoff Completed per policy Notes Mental Status: alert / awake / arousable Patient Amnestic to Procedure: Yes Nausea / Vomiting: adequately controlled Pain: adequately controlled Airway Patency, RR, SpO2: stable & adequate BP & HR: stable & adequate Hydration State: stable & adequate Neuraxial Anesthesia: was administered and sensory block is resolving Anesthetic Complications: no major complications apparent
[2024-11-06] MEDS ORDERED: bisacodyL 10 MG SUPP PR PRN (13:01)
[2024-11-06] MEDS ORDERED: PHARMACY GLYCEMIC MGMT CONSULT PRN (13:01)
[2024-11-06] MEDS ORDERED: ALBUTEROL HFA 8 GM INHALER INH PRN (13:01)
[2024-11-06] MEDS ORDERED: NALOXONE HCL 0.4 MG/1 ML VIAL/CARP IV PRN (13:01)
[2024-11-06] MEDS ORDERED: PANTOprazole 40 MG TAB PO PRN (13:01)
[2024-11-06] MEDS ORDERED: METOCLOPRAMIDE HCL INJ 5 MG/ML 2 ML VIAL IV PRN (13:01)
[2024-11-06] MEDS ORDERED: ONDANSETRON INJ 2 MG/ML 2 ML VIAL IV PRN (13:01)
[2024-11-06] MEDS ORDERED: MAGNESIUM HYDROXIDE SUSP 30 ML UDC PO PRN (13:01)
[2024-11-06] MEDS: HYDROmorphone INJ 0.5 MG/0.5 ML SYR IV PRN (13:06)
[2024-11-06] MEDS: HYDROmorphone INJ 0.5 MG/0.5 ML SYR ONE (14:10)
[2024-11-06] MEDS: INSULIN ASPART PER UNIT CHARGE SC SCH (14:38)
--- NOTE | 2024-11-06 14:55 | Pharmacy Report ---
Pharmacy Glycemic Short Note 2 - Date of Service November 06, 2024 - Glycemic Short BSG Results (Last 24 hours): 11/06/24 11/06/24 07:29 14:34 POC Glucose 126 H 156 H OUTPATIENT ANTIDIABETIC REGIMEN: * metformin? (no Rx documented in fill history or on med rec) * HbA1c 6.0% ASSESSMENT: * Meet is a 59 YOM admitted status post left TKA with a history of T2DM. Pharmacy has been consulted to assist with glycemic management while inpatient. * Preoperative BSG within goal range, dexamethasone 10mg IV given preoperatively, reviewed prior admission data last summer when right knee was completed, BSGs trended up into the mid 200's without basal insulin, will give ~0.2 units/kg of basal insulin with dinner to help cover for steroid induced hyperglycemia * NovoLog initiated based on prior admission data which equates to about a stress of 2.5 PLAN FOR INPATIENT GLYCEMIC CONTROL: * Hold outpatient oral diabetes medications * Basal insulin * Lantus 20 units SQ x1 with dinner, reassess in AM * Bolus insulin * NovoLog per scale ACHS or Q6hrs while NPO * Goal Range: Low 110 mg/dL - High 140 mg/dL * Correction Factor: 25 mg/dL/unit * Nutritional / Prandial insulin per carb ratio of 1 unit per 8 grams CHO consumed
[2024-11-06] MEDS: oxyCODONE HCL IR 5 MG TAB (IMMEDIATE RELEASE) PO PRN (16:20)
[2024-11-06] MEDS: GABAPENTIN 300 MG CAP PO SCH (16:25)
[2024-11-06] MEDS ORDERED: ceFAZolin 1000MG 1,000 MG/7.5 ML SYR IV SCH (17:00)
[2024-11-06] MEDS: LANTUS PER UNIT CHARGE SC SCH (17:15)
[2024-11-06] MEDS: SENNA 8.6 MG TAB PO SCH (20:14)
[2024-11-06] MEDS: ATORVASTATIN 40 MG TAB PO SCH (20:14)
[2024-11-06] MEDS: DOCUSATE SODIUM 100 MG CAP PO SCH (20:14)
[2024-11-06] MEDS: ASPIRIN 81 MG ECTAB PO SCH (20:14)
[2024-11-07 04:16] VITALS: O2SAT 94
[2024-11-07] MEDS: LOSARTAN POTASSIUM 25 MG TAB PO SCH (04:21)
[2024-11-07 07:19] VITALS: BP 166/81; PULSE 82; RESP 16; TEMP 97.7
--- NOTE | 2024-11-07 07:27 | Orthopedic Progress Note ---
Date of Service November 07, 2024 Assessment & Plan (1) Status post left knee replacement: Overall he is doing very well. He is not having much pain in the left knee. He will be seen by physical therapy today for ambulation and range of motion exercises. The nursing staff can change his dressing after physical therapy. He is on aspirin for DVT prophylaxis. He can be discharged to home later today. He will follow-up with orthopedics in 2 weeks. Delbert Dsouza was seen and examined at bedside this morning. Overall is doing very well. He is not having much pain in the left knee. He has been up and ambulating to the bathroom. He has no complaints.. Review of Systems All systems reviewed & are unremarkable except as noted in HPI & below. Physical Exam On physical exam of the left knee, the dressing is clean and dry. His leg is out full extension. He has active dorsiflexion plantarflexion of his left ankle.. Results & Data Results & Data Laboratory Results . Diagnostic Findings Postoperative x-rays of the left knee show the prosthesis to be in anatomic alignment without any evidence of fracture, dislocation, or loosening.. PG Care Time/CCT Total # of Minutes Spent Total Time Spent with Patient: Total time spent is greater than 50% in coordination of care (as documented) at patient's floor/unit and/or counseling patient: Coding Level of Care Code 18063 Post Operative Follow-Up Diagnoses Status post left knee replacement Z96.652
--- NOTE | 2024-11-07 07:28 | Discharge Summary ---
Date of Service November 07, 2024 Admission HPI (Per Admitting) Meet is a pleasant 59-year-old male who has been dealing with chronic increasing left knee pain. I did a right knee replacement on him 6 months ago. He did very well with that. Unfortunately he is dealing with left knee pain. X-rays and clinical exam have been diagnostic for advanced arthritis of the left knee. After failed conservative treatment, he has elected to proceed with a left total knee arthroplasty.. Admission Exam (Per Admitting) On physical exam of the left knee, he has tenderness palpation of the distal medial femoral condyle and over the medial joint line.. Principal Diagnosis Same as "Discharge Diagnosis" noted below under Discharge Instructions. Discharge Exam On physical exam of the left knee, the dressing is clean and dry. His leg is out full extension. He has active dorsiflexion plantarflexion of his left ankle.. Discharge Data Procedures Performed Operation Date: 11/06/24 09:00 Actual Procedures p Left Total Knee Arthroplasty(Left) - Trung Fernandez DO Ordered Studies 11/06/24 05:00 US - OR guided needle [facility] Stat Hospital Course (1) Status post left knee replacement: On November 06, 2024 Meet arrived at [facility] and underwent a left knee replacement without complication. He had a spinal anesthetic. Postoperatively he was started on aspirin for DVT prophylaxis and transferred to the general orthopedic floors. His hospital course was uneventful. On postop day #1, his vital signs were stable and his pain was well-controlled. He was able to participate well with physical therapy doing ambulation and range of motion exercises. He was then discharged to home. He will follow-up with orthopedics in 2 weeks. PG Care Time/CCT Total # of Minutes Spent Total Time Spent with Patient: Total time spent is greater than 50% in coordination of care (as documented) at patient's floor/unit and/or counseling patient: Discharge Plan Discharge Items Patient Disposition: Home - Self-Care Reason For Visit: Left Knee Arthritis Discharge Diagnosis: Left knee replacement Activity: Per Instructions section Non-emergency contact: Surgeon Call non-emergency contact if: your wound has increased redness and your wound has increased drainage Follow-up/Referrals: Mansoor Zhao MD [Primary Care Provider] - Diet: Regular Addtl Attending Provider Instructions: Activity and Therapy Recommendations: * If you are using [facility] then therapy will be provided at your home until they feel you have accomplished all of your goals. * If you are using [facility] then Physical Therapy will be provided until they feel you are ready to start Outpatient Physical Therapy. * If you are not using home therapy then Outpatient Physical Therapy should start about 3-5 days from your day of surgery. Therapy will last about 6-10 weeks * It is important not to put a pillow under your knee when you are relaxing or sleeping. It is just as important to make sure you are getting your knee perfectly straight as it is to regain your knee bend. * You were shown a series of exercises in the hospital. Do these exercises three times each day including the exercises you were shown in physical therapy. * Get up and walk several times each day. For the first four weeks, try not to stand or walk for more than one hour at a time. If you do stand or walk for more than one hour, you will not hurt anything, but your leg will likely swell. * As you feel comfortable, you may change from the walker or crutches to a cane and then to independent walking. Medications: * Narcotic You will likely be sent home from the hospital with a prescription for the narcotic pain medication that worked best throughout your stay. * Cefadroxil -take the antibiotic twice a day for 10 days to help prevent infection. * Aspirin Most patients will be required to take Aspirin 81mg twice a day for 6 weeks after surgery. This is obtained [id number] and a prescription is not necessary. * Other medications may be prescribed for specific circumstances. If you have any questions, please call the office at . * Resume previous home medications unless otherwise instructed TEDs/Elastic Stockings: The white elastic stockings help limit swelling and prevent blood clots from forming in your legs.~ The more you wear them, the more they work. Wear them for six weeks. Dressing Care: The dressing can be changed after physical therapy on postop day #1. Daily dry dressing changes for a few days, especially if the incision is still draining some. If the incision is not draining then you may leave the ruben open to air. If there is a little bit of drainage or if the ruben are getting stuck on your clothing then cover the incision with a dry dressing. The ruben will be removed at your 2 week follow-up appointment. Showering: You may shower 5 days from the day of surgery as long as the incision is no longer draining. You may shower with the ruben exposed. Let soapy water run over the ruben and pat them dry. Do not scrub or soak the incision. Diet: You may resume your previous diet. Things To Watch For: * Drainage from the incision site that occurs more than one week after your surgery. * Increased redness at the incision site. * Fever above 102 degrees Fahrenheit. * Unusual chest pain or shortness of breath. * Call [facility] at with any of the above problems Follow-Up Visit: Follow-up with Dr. Fernandez's office 2-3 weeks after your day of surgery. We will remove your ruben and answer any questions. If you have any additional questions or concerns, Dr Fernandez is usually in the office at the same time and will be available An appointment was probably scheduled when you signed-up for surgery in the office. If you have any questions call Office Instructions: More detailed instructions as well as Frequently Asked Questions were provided in a folder by our office when you signed-up for surgery. Please review these instructions when you get home. If you have any further questions or concerns, please feel free to call the office at [phone] Pending Studies at Discharge: No Stand-Alone Forms: My [facility], Smoking Cessation Medications and DC Order Prescriptions: New cefadroxil 500 mg capsule 500 mg PO BID 10 Days Qty: 20 0RF oxycodone 5 mg tablet 5 mg PO Q6H PRN (Reason: pain) Qty: 30 0RF aspirin 81 mg Tablet,Delayed Release (Dr/Ec) 81 mg PO BID 42 Days Qty: 84 0RF Continued albuterol sulfate 90 mcg/actuation HFA aerosol inhaler 2 puff INHALATION Q4H PRN (Reason: Wheezing) Qty: 8.5 11RF morphine 15 mg tablet extended release 15 mg PO Q12H Qty: 60 0RF oxycodone 15 mg tablet 15 mg PO Q6H Qty: 90 0RF (DME) Oxygen Home Liters Per Minute See Rx Instructions .Route Qty: 1 0RF Rx Instructions: 2L at HS and portable O2 with ambulation ipratropium-albuterol 0.5 mg-3 mg(2.5 mg base)/3 mL solution for nebulization 3 ml Inhalation QID PRN (Reason: Shortness Of Breath) Qty: 180 3RF Trelegy Ellipta 100-62.5-25 mcg blister with device 1 inh inhalation QAM Qty: 60 11RF (DME) Walking Cane Misc See Rx Instructions .Route Qty: 1 0RF Rx Instructions: As directed ergocalciferol (vitamin D2) 1,250 mcg (50,000 unit) capsule 50,000 unit PO WEEKLY Qty: 8 1RF Rx Instructions: icosapent ethyl [Vascepa] 1 gram capsule 2 g PO BID Qty: 120 5RF (DME) OneTouch Verio test strips Strip See Rx Instructions .ROUTE .MEDSUPPLY Qty: 100 1RF Rx Instructions: As directed - check sugars 1x each day. (DME) lancets [OneTouch Delica Lancets] 33 gauge misc See Rx Instructions .ROUTE .MEDSUPPLY Qty: 100 1RF Rx Instructions: As directed - check blood sugars 1x daily. epinephrine [EpiPen] 0.3 mg/0.3 mL auto-injector 0.3 mg IM DIRECTED PRN (Reason: Allergic Reaction) pantoprazole [Protonix] 40 mg tablet,delayed release (DR/EC) 40 mg PO BID PRN (Reason: Acid Reflux) aspirin 81 mg Tablet,Delayed Release (Dr/Ec) 81 mg PO QAM gabapentin [Neurontin] 300 mg capsule 900 mg PO TID olmesartan [Benicar] 5 mg tablet 5 mg PO QAM duloxetine [Cymbalta] 60 mg capsule,delayed release(DR/EC) 60 mg PO QAM atorvastatin [Lipitor] 80 mg tablet 80 mg PO HS Qty: 90 3RF Admission Data Admit Date/Time: 11/06/24 10:31 Attending Provider: Trung Fernandez Admit Provider: Trung Fernandez Primary Care Provider: Mansoor Zhao Other Providers: [facility],Home Health
[2024-11-07] MEDS: DULoxetine HCL 60 MG CAP PO SCH (08:09)
[2024-11-07] MEDS: MULTIVITAMIN TAB PO SCH (08:10)
[2024-11-07] MEDS: FLUTICASONE FUROATE 100MCG 14 PUFFS/INHALER INH SCH (08:43)
[2024-11-07] MEDS: UMECLIDINIUM/VILANTEROL 62.5/25MCG 7 PUFFS/INHALER INH SCH (08:43)
[2024-11-07] MEDS ORDERED: NON-FORMULARY MEDICATION (Fluticasone-Umeclidin-Vilanter [Trelegy Ellipta] 100-62.5-25 mcg INH SCH (09:00)
== END 2024-11-07 11:22 | disposition home or self-care (01) ==
LOC: ASU 06:52 → PACUINP 06:52 → 3E 13:57

== ENCOUNTER 2024-12-04 20:05 | Inpatient (IN) ==
[2024-12-04 20:54] LABS: Basophils # (auto) 0.05 K/uL (0.00-0.20); Basophils % (auto) 0.3 %; Eosinophils # (auto) 0.11 K/uL (0.00-0.50); Eosinophils % (auto) 0.6 %; Hematocrit (blood only) 37.7 % (42.0-52.0); Hemoglobin 12.2 g/dl (14.0-18.0); Immature Granulocytes # (auto) 0.23 K/uL (0.01-0.20); Immature Granulocytes % (auto) 1.3 %; Lymphocytes # (auto) 1.27 K/uL (1.20-3.40); Mean Corpuscular Hemoglobin 31.4 pg (25.0-34.0); Mean Corpuscular Hgb Conc 32.4 g/dL (32.0-36.0); Mean Corpuscular Volume 96.9 fL (80.0-100.0); Mean Platelet Volume 9.6 fL (9.4-12.4); Monocytes # (auto) 1.43 K/uL (0.11-0.59); Monocytes % (auto) 7.9 %; Neutrophils # (auto) 14.97 K/uL (1.40-6.50); Neutrophils % (auto) 82.9 %; Platelet Count 321 K/uL (130-400); RDW Coefficient of Variation 15.1 % (11.5-14.5); RDW Standard Deviation 53.4 fL (36.4-46.3); Red Blood Count 3.89 M/uL (4.70-6.10); White Blood Count 18.06 K/ul (4.8-10.8)
[2024-12-04 21:05] LABS: Albumin Globulin Ratio 1.6 (0.9-2); Albumin Level 4.6 gm/dl (3.4-5.0); Bilirubin,Total 0.5 mg/dl (0.2-1.0); Calcium 9.3 mg/dl (8.6-10.3); Creatinine Clr Calc Pharmacy 73.5 ml/min; Globulin 2.8 gm/dl (2.5-4.0); Potassium 4.6 mmol/L (3.5-5.1); Total Protein 7.4 gm/dl (6.0-8.3)
[2024-12-04 21:28] LABS: Influenza A virus by PCR Positive (Neg); Influenza B virus by PCR Negative (Neg); RSV by PCR Negative (Neg); SARS CoV2 RNA(COVID-19) Ceph NEGATIVE (Negative)
--- NOTE | 2024-12-04 22:10 | XRay Report ---
Exam(s): XR CXR 1 VIEW EXAM: XR Chest, 1 View CLINICAL HISTORY: cp. TECHNIQUE: Frontal view of the chest. COMPARISON: Portable chest single view May 10, 2024 FINDINGS: Lungs: Unremarkable. No consolidation. The pulmonary vasculature demonstrates no significant radiographic abnormality. Pleural space: Unremarkable. No pneumothorax. No large pleural effusion. Heart: Unremarkable. No cardiomegaly. Mediastinum: The mediastinal contours are stable and unremarkable. The trachea is midline. Bones/joints: Posterior fusion throughout the cervical spine incidentally noted. No acute fracture. IMPRESSION: No acute cardiopulmonary process or significant alteration from the prior examination. Electronically signed by: Bernard Chavez MD 12/04/24 22:09 PM
--- NOTE | 2024-12-04 22:12 | XRay Report ---
Exam(s): XR LEFT KNEE, 3 views EXAM: XR Left Knee, 3 Views CLINICAL HISTORY: Knee trauma. TECHNIQUE: Three views of the left knee. COMPARISON: Radiographic evaluation of both knees 02/25/2024 FINDINGS: Bones/joints: There has been interval placement of a left total knee arthroplasty. No acute osseous traumatic injury. No periprosthetic lucency or fracture noted. No dislocation. Soft tissues: Soft tissue fullness suggested overlying the patella. No radiopaque foreign body or subcutaneous emphysema. IMPRESSION: Soft tissue fullness suggested overlying the patella. No radiopaque foreign body or subcutaneous emphysema. Left total knee arthroplasty. No acute osseous abnormality. Electronically signed by: Bernard Chavez MD 12/04/24 22:11 PM
--- NOTE | 2024-12-04 22:51 | Emergency Department Note ---
Impression & Plan Flu, Leukocytosis, Acute postoperative pain of knee ED Provider Note NAME: LUCIAN HAMPTON AGE: 59 SEX: M : 1965 ARRIVES VIA: Walk-In INFORMANT: Patient ED PROVIDER(S): Prashant Branch DO CHIEF COMPLAINT: Cough, congestion, fever and knee pain HPI: Patient is a 59-year-old male with a past medical history of dyslipidemia, CAD, diabetes and hypertension who presents to the ER for upper respiratory symptoms in combination with a fever. Cough, congestion has been present for the past 2 days in combination with intermittent fevers. He notes he fell last night on ice onto his knee. His knee did swell up following this and he feels like he cant move it. He admits to surrounding redness as well. He has been having trouble moving it since then. Denies any dysuria, urgency, or frequency. No other exacerbating or remitting factors. ADDITIONAL HISTORY OBTAINED: Per HPI Chronic Medical/Social Conditions Affecting Care: Per HPI PAST MEDICAL HISTORY:See Below PAST SURGICAL HISTORY:See Below FAMILY HISTORY:See Below SOCIAL HISTORY:See Below HOME MEDICATIONS:See Below ALLERGIES:See Below VITALS:See Below PHYSICAL EXAMINATION: GENERAL: Sitting up in bed, alert, well appearing, well nourished, no distress, non-toxic EYE EXAM: normal conjunctiva. PERRL and EOM's grossly intact. OROPHARYNX: no exudate, no erythema, lips, buccal mucosa, and tongue normal and mucous membranes are moist NECK: supple, no nuchal rigidity, no adenopathy, non-tender LUNGS: Clear to auscultation. Normal chest wall mechanics HEART: no murmurs, S1 normal and S2 normal ABDOMEN: abdomen soft, non-tender, normo-active bowel sounds, no masses, no rebound or guarding. UPPER EXTREMITIES: upper extremities are grossly normal. LOWER EXTREMITIES: No pain with flexion extension of the left hip. Left knee held in slight flexion. Incision is clean and dry. Prepatellar effusion present. Does have some overlying redness. DP and PT 2 out of 4. Gross station intact. No tenderness throughout the mid or distal tib-fib or ankle foot. NEURO EXAM: Normal sensorium, cranial nerves II-XII grossly intact, normal speech, no gross weakness of arms, no gross weakness of legs. MEDICAL DECISION MAKING: Patient is a 59-year-old male who presents to the ER for the above-stated complaint. IV was established and blood work was obtained. Labs show leukocytosis of 18,000. No significant anemia. BMP along with LFTs and bilirubin was unremarkable. Pro-Tonio at 4.2. Patient is flu a positive. Knee has some overlying redness with prepatellar effusion. Patient with limited range of motion. X-ray of the chest and knee was unremarkable. Would be atypical to have both flu and a septic joint based on the history I favor that this is related to fluid however generally do not see a leukocytosis of nearly 19,000 with significantly elevated Pro-Tonio. I did discuss with orthopedics and they will evaluate and they recommended admission to the hospitalist and holding on antibiotics until tap of the knee. Consults/Care Managements Discussions: Per [facility] Triage Nursing notes reviewed. Limited review of prior medical records performed Vital Signs: reviewed and remarkable for no significant abnormalities Differential diagnosis: Differential diagnosis: Etiologies such as viral syndrome, otitis, pharyngitis, pneumonia, influenza, meningitis, urinary tract infection, sepsis, bacteremia, as well as others were entertained. ER treatment provided: See below Diagnostics interpreted by me include EKG and cardiac monitoring as listed below: -Cardiac Monitoring: An order was placed for continuous cardiac monitoring. The monitor shows a rate of 101 with sinus rhythm. -ECG: none -Laboratory studies:Interpreted by me as stated above in MDM and shown below. Imaging studies: Xrays: As interpreted by me: Portable AP upright 1 view of the chest shows no focal infiltrate X-ray of the left knee shows no acute fracture CTs show: none Procedures:none Critical Care: None Past Med/Surg History Problem List (Updated 12/05/24 @ 01:12 by Prashant Branch DO) Acute postoperative pain of knee (Acute) Leukocytosis (Acute) Flu (Acute) Left knee injury Influenza A Greater trochanteric bursitis of both hips Status post left knee replacement (~10/2024) Coronary artery calcification no significant CAD per 2019 cath per chart review Dyslipidemia Chronic knee pain Vitamin D deficiency Chronic diastolic CHF (congestive heart failure) DVT prophylaxis DM II (diabetes mellitus, type II), controlled Disorder of intervertebral disc at C6-C7 level with radiculopathy 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 Emphysema without acute intrathoracic abnormality. 2. 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 noted on 04/2023 Abd/Pelvis CT; unchanged from previous; following with ortho Cigarette smoker Chronic pain syndrome with chronic narcotic use Diverticulitis with colon perforation 04/25/23- admitted to [facility] - initially treated with IV abxs and fluids- s/p sigmoid colectomy with diverting colostomy 04/29/23 Arthritis Dyshidrotic eczema Chronic bronchitis Renal insufficiency 09/16/24 eGFR 105.75 Edema of knee-denies other edema Chronic hypoxemic respiratory failure Dr Trimble; on Home O2 HS 2L and PRN daytime Chronic knee pain Hx of chest pain (05/11/24) states "over exerted" himself; hospitalized at [facility] (had a negative stress test) - No issues since Hx of gastric ulcer early 2022. no current issues. SAUL (obstructive sleep apnea) 2L of O2 via NC HS; does not tolerate CPAP Sigmoid diverticulitis hx 04/2023 -- exploratory lap with colostomy creation-with later reversal Hx of supraventricular tachycardia pt unaware; follows with Dr Wanda REEVES (hard of hearing) wears bilateral hearing aides Hx: recurrent pneumonia 2019+2020+ most recently hospitalized at [facility] in 2021. no problems since. Osteoarthritis Hypertension BP elevated; olmesartan added at 09/17/24 PCP visit; awaiting f/u Chronic CHF Dr Muñoz Chronic obstructive pulmonary disease controlled with daily inhaler-- average use 4-5 times monthly - Dr Trimble Hx of tinnitus History of anemia Hx of pulmonary hypertension (2019) Normal RVSP on 10/2022 ECHO Mild pulm HTN on 2019 RHC- PA pressure: 37/19 with a mean of 25 mmHg. Chronic neck pain Chronic back pain Urinary frequency nocturia On home oxygen therapy 2L O2 at night and PRN daytime Diabetes mellitus type 2, uncontrolled Diet Polyneuropathy feet bilateral Hyperlipemia reports he is not currently taking statin medication daily. GERD (gastroesophageal reflux disease) controlled, stable per pt NSTEMI (non-ST elevated myocardial infarction) (~2019) NSTEMI 2019- cardiac cath showed no CAD. Dr Muñoz Surgical History Status post right knee replacement (~05/2024) R TKA 07/13/24: MAC, SAB (L4-5 x 1 attempt), PNB (x 1 attempt); no issues with anesthesia History of colostomy reversal (08/08/23) Laparoscopic Reversal Colostomy, extensive enterolysis - Bernard Rocha, History of colon resection (04/29/23) Exploratory Laparotomy, Sigmoid colectomy with Diverting Colostomy, Takedown enterocolonic fistula with primary Repair(Not Applicable) - Bernard Rocha, DO History of esophagogastroduodenoscopy (EGD) History of tonsillectomy H/O exploratory laparotomy (04/29/23) with colostomy creation - r/t diverticulitis. H/O vasectomy + Reversal History of colonoscopy History of tooth extraction History of cholecystectomy Hx of appendectomy S/P cervical spinal fusion C3-C6 -> ROM slightly limited with numbness down the right arm. Hx of arthroscopic knee surgery Bilateral H/O cardiac catheterization 07/2020 [facility]; 'no significant CAD'; follows with Family History Father Heart disease age 37 - "heart attack" Hypertension Brother Coronary heart disease Hypertension Aunt Breast cancer Mother Hypertension Thyroid disease Other Allergies Cancer Diabetes No family history of adverse response to anesthesia No significant family history Denies family history of Tuberculosis Ovarian cancer Prostate cancer Emphysema, unspecified Colorectal cancer Lung disease Asthma Social History Smoking Status: Current every day smoker Tobacco Type: Cigarettes Age Started Using Tobacco: 19; packs per day: 1; Cigarettes Per Day: 1/2 to 3/4 pack; Second Hand Exposure: No; Do You Dip or Chew Tobacco: No; Hx Alcohol Use: No Hx Substance Use: No Preferred Language: Greek Communication Ability: Effective Visual Impairment: No Limitations Hearing Ability: Normal E Learning Manager Required: No Beliefs That Will Affect Care: None marital status: Current Living Situation: Spouse Current Living Situation Comment: and son current occupational status: disabled Feels Safe at Home: Yes Childhood Exposure to Second-Hand Smoke: Yes Diet: low carbohydrate and other Diet Comment: no fiber caffeine: Yes Dental Care, Regularly: No Physical Activity Frequency: Does not Exercise Seatbelt Use: always Sunscreen Use: No Assistive Devices: Cane, Oxygen - at Night and Walker Allergies Allergies Allergy/AdvReac Type Severity Reaction Status Date / Time naproxen Allergy Intermediate Severe Rash Verified 12/04/24 23:52 bee venom protein (honey bee) AdvReac Severe Syncope Verified 12/04/24 23:52 tramadol AdvReac Intermediate Gastrointestinal Verified 12/04/24 23:52 Upset Home Meds Home Medications Medication Instructions Recorded Confirmed epinephrine 0.3 mg/0.3 mL 0.3 mg IM DIRECTED PRN Allergic 02/21/22 12/04/24 injection, auto-injector (EpiPen) Reaction pantoprazole 40 mg tablet,delayed 40 mg PO BID PRN Acid Reflux 07/30/23 12/04/24 release (Protonix) duloxetine 60 mg capsule,delayed 60 mg PO QAM 10/23/24 12/04/24 release (Cymbalta) gabapentin 300 mg capsule 900 mg PO TID 10/23/24 12/04/24 (Neurontin) olmesartan 5 mg tablet (Benicar) 5 mg PO QAM 10/23/24 12/04/24 tamsulosin 0.4 mg capsule 0.4 mg PO HS 12/04/24 12/04/24 Previous Rx's Medication Instructions Recorded blood sugar diagnostic (OneTouch #100 ea 02/15/21 Verio test strips) lancets 33 gauge (OneTouch Delica #100 ea 02/15/21 Lancets) ipratropium 0.5 mg-albuterol 3 mg 3 ml inhalation QID PRN Shortness 10/22/22 (2.5 mg base)/3 mL nebulization Of Breath #180 mL soln Oxygen Home #1 ea 07/17/23 albuterol sulfate 90 mcg/actuation 2 puff inhalation Q4H PRN Wheezing 11/28/23 aerosol inhaler #8.5 grams Walking Cane #1 ea 12/06/23 atorvastatin 80 mg tablet (Lipitor) 80 mg PO HS #90 tabs 05/11/24 fluticasone fur. 100 mcg-umeclid 1 inh inhalation QAM #60 ea 10/29/24 62.5 mcg-vilant 25 mcg inhalat.powder (Trelegy Ellipta) aspirin 81 mg tablet,delayed 81 mg PO BID 42 days #84 tabs 11/06/24 release ergocalciferol (vitamin D2) 1,250 50,000 unit PO WEEKLY 90 days #12 11/10/24 mcg (50,000 unit) capsule caps morphine 15 mg tablet,extended 15 mg PO Q12H #60 tabs 11/13/24 release oxycodone 5 mg tablet 5 mg PO Q6H PRN pain #30 tabs 11/30/24 oxycodone 15 mg tablet 15 mg PO Q6H #90 tabs 12/02/24 Results & Data (ED) Vital Signs Vital Signs - 24 hr 12/04/24 20:11 12/04/24 22:37 12/04/24 22:37 Temperature 36.5 C Temperature Source Temporal Artery Scan Pulse Rate 123 H 108 H Pulse Rate [Apical] 107 H Respiratory Rate 18 24 Respiratory Effort / Characteristics Spontaneous SOB on Exertion Respiratory Depth Normal Respiratory Pattern Tachypnea Blood Pressure 107/64 Blood Pressure [Right Arm] 139/98 Blood Pressure Mean 78 Blood Pressure Mean [Right Arm] 111 Blood Pressure Position [Right Arm] Semi-fowlers Pulse Oximetry 95 97 Oxygen Delivery Method Room Air Room Air Sepsis Recent Fever Within 48 Hours Yes Sepsis New/Unexplained Change in Mental Status No Sepsis Action Taken by Nursing No Action Required 12/05/24 00:00 Temperature Temperature Source Pulse Rate Pulse Rate [Apical] 107 H Respiratory Rate 23 Respiratory Effort / Characteristics Respiratory Depth Respiratory Pattern Blood Pressure Blood Pressure [Right Arm] 159/79 H Blood Pressure Mean Blood Pressure Mean [Right Arm] 105 Blood Pressure Position [Right Arm] Pulse Oximetry 97 Oxygen Delivery Method Room Air Sepsis Recent Fever Within 48 Hours Sepsis New/Unexplained Change in Mental Status Sepsis Action Taken by Nursing Laboratory Data 12/04/24 20:25 12/04/24 20:25 Lab Results 12/04/24 Range/Units 20:25 WBC 18.06 H (4.8-10.8) K/ul RBC 3.89 L (4.70-6.10) M/uL Hgb 12.2 L (14.0-18.0) g/dl Hct 37.7 L (42.0-52.0) % MCV 96.9 (80.0-100.0) fL MCH 31.4 (25.0-34.0) pg MCHC 32.4 (32.0-36.0) g/dL RDW Std Deviation 53.4 H (36.4-46.3) fL RDW Coeff of Liliya 15.1 H (11.5-14.5) % Plt Count 321 (130-400) K/uL MPV 9.6 (9.4-12.4) fL Immature Gran % (Auto) 1.3 % Neut % (Auto) 82.9 % Lymph % (Auto) 7.0 % Boyle % (Auto) 7.9 % Eos % (Auto) 0.6 % Baso % (Auto) 0.3 % Neut # (Auto) 14.97 H (1.40-6.50) K/uL Lymph # (Auto) 1.27 (1.20-3.40) K/uL Boyle # (Auto) 1.43 H (0.11-0.59) K/uL Eos # (Auto) 0.11 (0.00-0.50) K/uL Baso # (Auto) 0.05 (0.00-0.20) K/uL Immature Gran # (Auto) 0.23 H (0.01-0.20) K/uL Sodium 133 L (136-145) mmol/L Potassium 4.6 (3.5-5.1) mmol/L Chloride 103 (98-107) mmol/L Carbon Dioxide 22 (21-32) mmol/L Anion Gap 8 (3-11) BUN 19 (6-23) mg/dl Creatinine 1.12 (0.6-1.4) mg/dl Est Cr Clr Drug Dosing 73.5 ml/min eGFR 74.74 BUN/Creatinine Ratio 17.0 (10-20) Glucose 127 H (70-99(Fasting)) mg/dl Calcium 9.3 (8.6-10.3) mg/dl Total Bilirubin 0.5 (0.2-1.0) mg/dl AST 16 (13-39) U/L ALT 16 (7-52) U/L Alkaline Phosphatase 107 H (34-104) U/L Total Protein 7.4 (6.0-8.3) gm/dl Albumin 4.6 (3.4-5.0) gm/dl Globulin 2.8 (2.5-4.0) gm/dl Albumin/Globulin Ratio 1.6 (0.9-2) Procalcitonin 4.21 H (0-0.5) ng/ml SARS-CoV-2 (PCR) NEGATIVE (Negative) Influenza Type A (PCR) Positive A (Neg) Influenza Type B (PCR) Negative (Neg) RSV (RT-PCR) Negative (Neg) Administered Medications Discontinued Medications Sodium Chloride (Nss) 1,000 mls @ 999 mls/hr IV .Q1H1M ONE Stop: 12/04/24 23:48 Last Admin: 12/04/24 23:35 Dose: 999 mls/hr Documented By: CTK Morphine Sulfate (Morphine Sulfate 4 Mg/Ml 1 Ml Carp\\Vial) 4 mg IV NOW STA Stop: 12/04/24 22:49 Last Admin: 12/04/24 23:32 Dose: 4 mg Documented By: CTK Imaging Data Radiologist's Impression: Chest X-Ray 12/04/24 20:14 Exam(s): XR CXR 1 VIEW EXAM: XR Chest, 1 View CLINICAL HISTORY: cp. TECHNIQUE: Frontal view of the chest. COMPARISON: Portable chest single view May 10, 2024 FINDINGS: Lungs: Unremarkable. No consolidation. The pulmonary vasculature demonstrates no significant radiographic abnormality. Pleural space: Unremarkable. No pneumothorax. No large pleural effusion. Heart: Unremarkable. No cardiomegaly. Mediastinum: The mediastinal contours are stable and unremarkable. The trachea is midline. Bones/joints: Posterior fusion throughout the cervical spine incidentally noted. No acute fracture. IMPRESSION: No acute cardiopulmonary process or significant alteration from the prior examination. Electronically signed by: Bernard Chavez MD 12/04/24 22:09 PM Knee X-Ray 12/04/24 20:15 Exam(s): XR LEFT KNEE, 3 views EXAM: XR Left Knee, 3 Views CLINICAL HISTORY: Knee trauma. TECHNIQUE: Three views of the left knee. COMPARISON: Radiographic evaluation of both knees 02/25/2024 FINDINGS: Bones/joints: There has been interval placement of a left total knee arthroplasty. No acute osseous traumatic injury. No periprosthetic lucency or fracture noted. No dislocation. Soft tissues: Soft tissue fullness suggested overlying the patella. No radiopaque foreign body or subcutaneous emphysema. IMPRESSION: Soft tissue fullness suggested overlying the patella. No radiopaque foreign body or subcutaneous emphysema. Left total knee arthroplasty. No acute osseous abnormality. Electronically signed by: Bernard Chavez MD 12/04/24 22:11 PM Discharge Plan Visit Data Chief Complaint: Leg Injury/Pain Stated Complaint: FEL ON ICE, LEFT LEG PAIN, LEFT KNEE REPLACEMENT ED Provider: Prashant Branch Discharge Problem: Flu, Leukocytosis, Acute postoperative pain of knee Forms Stand Alone Forms: Tellyo Prescriptions Prescriptions: No Action albuterol sulfate 90 mcg/actuation HFA aerosol inhaler 2 puff INHALATION Q4H PRN (Reason: Wheezing) Qty: 8.5 11RF ergocalciferol (vitamin D2) 1,250 mcg (50,000 unit) capsule 50,000 unit PO WEEKLY 90 Days Qty: 12 1RF Rx Instructions: morphine 15 mg tablet extended release 15 mg PO Q12H Qty: 60 0RF oxycodone 5 mg tablet 5 mg PO Q6H PRN (Reason: pain) Qty: 30 0RF Rx Instructions: for breakthrough pain oxycodone 15 mg tablet 15 mg PO Q6H Qty: 90 0RF (DME) Oxygen Home Liters Per Minute See Rx Instructions .Route Qty: 1 0RF Rx Instructions: 2L at HS and portable O2 with ambulation ipratropium-albuterol 0.5 mg-3 mg(2.5 mg base)/3 mL solution for nebulization 3 ml Inhalation QID PRN (Reason: Shortness Of Breath) Qty: 180 3RF Trelegy Ellipta 100-62.5-25 mcg blister with device 1 inh inhalation QAM Qty: 60 11RF (DME) Walking Cane Misc See Rx Instructions .Route Qty: 1 0RF Rx Instructions: As directed (DME) OneTouch Verio test strips Strip See Rx Instructions .ROUTE .MEDSUPPLY Qty: 100 1RF Rx Instructions: As directed - check sugars 1x each day. (DME) lancets [OneTouch Delica Lancets] 33 gauge misc See Rx Instructions .ROUTE .MEDSUPPLY Qty: 100 1RF Rx Instructions: As directed - check blood sugars 1x daily. epinephrine [EpiPen] 0.3 mg/0.3 mL auto-injector 0.3 mg IM DIRECTED PRN (Reason: Allergic Reaction) pantoprazole [Protonix] 40 mg tablet,delayed release (DR/EC) 40 mg PO BID PRN (Reason: Acid Reflux) gabapentin [Neurontin] 300 mg capsule 900 mg PO TID olmesartan [Benicar] 5 mg tablet 5 mg PO QAM duloxetine [Cymbalta] 60 mg capsule,delayed release(DR/EC) 60 mg PO QAM aspirin 81 mg Tablet,Delayed Release (Dr/Ec) 81 mg PO BID 42 Days Qty: 84 0RF atorvastatin [Lipitor] 80 mg tablet 80 mg PO HS Qty: 90 3RF tamsulosin 0.4 mg capsule 0.4 mg PO HS Referrals Referrals: Mansoor Zhao MD [Primary Care Provider] - Discharge Problem: Leukocytosis Qualifiers: Leukocytosis type: unspecified Qualified Code(s): D72.829 - Elevated white blood cell count, unspecified
[2024-12-04] MEDS: MoRPHine SULFATE 4 MG/ML 1 ML CARP\\VIAL IV STA (23:32)
[2024-12-04] MEDS: SODIUM CHLORIDE 0.9% 1,000 ML IV ONE (23:35)
--- NOTE | 2024-12-05 00:20 | History & Physical Report ---
Date of Service December 05, 2024 Assessment & Plan (1) Influenza A: (2) Left knee injury: Plan 59-year-old male PMHx chronic pain syndrome, renal insufficiency chronic hypoxemic respiratory failure, SAUL, HTN, CHF, COPD, pulmonary hypertension, and T2DM presenting for generalized illness. 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 ED evaluation reveals CBC with leukocytosis 18.06, H&H 12.2/37.7, sodium 133, glucose 127, and alkaline phosphatase 107. Procalcitonin 4.21; BioFire positive influenza A. CXR no acute findings L knee XR soft tissue fullness over patella, left TKA, no acute findings. EKG sinus tach at rate of 118 bpm. #Influenza A Symptoms of SOB, nonproductive cough, and fever x 3 days. Recent exposure to 2 family members. H/o COPD as well. - BioFire positive influenza A; leukocytosis 18.06, procalcitonin 4.21; CXR without acute findings. - 2L O2 via NC at bedtime his baseline which she has increased since being sick to 3L, none with activity or during daytime; O2 as needed; wean to baseline as patient tolerates if needed; IC + FV - DuoNeb now then every 4 hours; continue outpatient inhalers as nebulizers; cont trelegy - SoluMedrol 125mg IV x 1 then 40mg IV q12hr - Tamiflu 75 mg BID x 5 days #L knee pain/chronic pain syndrome Pain at L knee secondary to mechanical fall day prior to arrival. Recent L total knee arthroplasty on 11/07/2024 secondary to advanced arthritis of L knee and failure of conservative treatment. Follows with Dr. Fernandez. On multiple medications for pain management to include duloxetine, gabapentin, and oxycodone. Of note, PDMP checked- pt with multiple prescribers and multiple refills since the start of the year. 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 Asymptomatic. Sligh tly hypovolemic on admitting exam. - Na 133, glucose 127; corrected 134 - Serum osmol, Urine Na, Urine Osmol pending - IVF LR @ 80 mL/hr x 1 L - BMP am #COPD/tobacco use (cigarettes) H/o COPD (chronic bronchitis); follows with pulmonology, most recent visit 03/04/2024. Suspect approximately 1 pack/day starting at age 19 - O2 2L via NC at night at baseline; was utilizing 3L at night since becoming sick - continue O2 prn + at HS - No evidence of exacerbation today; CXR without acute findings - Continue home meds- Trelegy, nebulizer, albuterol rescue inhaler #T2DM H/o DMT2, home regimen metformin - Most recent A1C April 2024 @ 6.3% - SSI with target BSG range 110-140mg/dL, CF [], carb ratio [] - BSG ACHS - Pharm glycemic management consult placed, appreciate assistance-adjust regimen as needed #GERD/gastric ulcer/duodenitis- Pantoprazole #SAUL- Does not tolerate cpap; 2L O2 via NC at baseline #HTN-Metoprolol, olmesartan #Anemia- Prior B12 and folate deficiency, receives monthly B12 injections and takes oral B12- H/H 12.2/37.7 at admission; repeat CBC am, pending B12 + folate levels #HLD- Atorvastatin #BPH- Tamsulosin Dispo: Admit, med/sx VTE prophylaxis: HOLD pending possible Sx intervention This document was dictated utilizing [employer]. Please excuse any grammatical errors that may be secondary to use of this software. Admission and Anticipated Discharge Date Admission Date: 12/05/2024 History of Present Illness Chief Complaint: SOB, L Knee pain Primary Care Provider: Mansoor Zhao MD 59-year-old male PMHx chronic pain syndrome, renal insufficiency chronic hypoxemic respiratory failure, SAUL, HTN, CHF, COPD, pulmonary hypertension, and T2DM presenting for generalized illness. 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 States that his cough is nonproductive but that his chest feels congested. Also reports that he has had increased wheezing. Admits to a fever on the day of arrival with Tmax 103F, no chills. Also having associated SOB, 2L O2 via NC at night only which he has increased to 3L given his recent SOB. 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 The night prior to arrival, patient did have a fall onto his L knee which was a recent replacement after he slipped on ice. States that he is able to ambulate on the knee but it causes pain in that leg. Leg is very erythematous and edematous following the fall, but no blood or oozing from site. States that his sick contacts include his and son who were sick in the past week. Overall denying chest pain, abdominal pain, N/V/D/C, numbness/tingling, LUTS, or URI symptoms. ED evaluation reveals CBC with leukocytosis 18.06, H&H 12.2/37.7, sodium 133, glucose 127, and alkaline phosphatase 107. Procalcitonin 4.21; BioFire positive influenza A. CXR no acute findings L knee XR soft tissue fullness over patella, left TKA, no acute findings. EKG sinus tach at rate of [address] García's attestation for adjustments/additions to treatment plan. Allergies Allergy/AdvReac Type Severity Reaction Status Date / Time naproxen Allergy Intermediate Severe Rash Verified 12/04/24 23:52 bee venom protein (honey bee) AdvReac Severe Syncope Verified 12/04/24 23:52 tramadol AdvReac Intermediate Gastrointestinal Verified 12/04/24 23:52 Upset Home Medications Medication Instructions Recorded Confirmed Type blood sugar diagnostic (Flare3dTouch #100 ea 02/15/21 09/17/24 Rx Verio test strips) lancets 33 gauge (OneTouch Delica #100 ea 02/15/21 09/17/24 Rx Lancets) epinephrine 0.3 mg/0.3 mL 0.3 mg IM DIRECTED PRN Allergic 02/21/22 12/04/24 History injection, auto-injector (EpiPen) Reaction ipratropium 0.5 mg-albuterol 3 mg 3 ml inhalation QID PRN Shortness 10/22/22 12/04/24 Rx (2.5 mg base)/3 mL nebulization Of Breath #180 mL soln Oxygen Home #1 ea 07/17/23 09/17/24 Rx pantoprazole 40 mg tablet,delayed 40 mg PO BID PRN Acid Reflux 07/30/23 12/04/24 History release (Protonix) albuterol sulfate 90 mcg/actuation 2 puff inhalation Q4H PRN Wheezing 11/28/23 12/04/24 Rx aerosol inhaler #8.5 grams Walking Cane #1 ea 12/06/23 09/17/24 Rx atorvastatin 80 mg tablet (Lipitor) 80 mg PO HS #90 tabs 05/11/24 12/04/24 Rx duloxetine 60 mg capsule,delayed 60 mg PO QAM 10/23/24 12/04/24 History release (Cymbalta) gabapentin 300 mg capsule 900 mg PO TID 10/23/24 12/04/24 History (Neurontin) olmesartan 5 mg tablet (Benicar) 5 mg PO QAM 10/23/24 12/04/24 History fluticasone fur. 100 mcg-umeclid 1 inh inhalation QAM #60 ea 10/29/24 12/04/24 Rx 62.5 mcg-vilant 25 mcg inhalat.powder (Trelegy Ellipta) aspirin 81 mg tablet,delayed 81 mg PO BID 42 days #84 tabs 11/06/24 12/04/24 Rx release ergocalciferol (vitamin D2) 1,250 50,000 unit PO WEEKLY 90 days #12 11/10/24 12/04/24 Rx mcg (50,000 unit) capsule caps morphine 15 mg tablet,extended 15 mg PO Q12H #60 tabs 11/13/24 12/04/24 Rx release oxycodone 5 mg tablet 5 mg PO Q6H PRN pain #30 tabs 11/30/24 12/04/24 Rx oxycodone 15 mg tablet 15 mg PO Q6H #90 tabs 12/02/24 12/04/24 Rx tamsulosin 0.4 mg capsule 0.4 mg PO HS 12/04/24 12/04/24 History Past Med/Surg History Problem List (Updated 12/05/24 @ 18:23 by Valentin Pastor MD) On home oxygen therapy 2L O2 at night and PRN daytime Chronic bronchitis Sigmoid diverticulitis hx 04/2023 -- exploratory lap with colostomy creation-with later reversal Edema of knee-denies other edema Acute postoperative pain of knee (Acute) Leukocytosis (Acute) Flu (Acute) Left knee injury Influenza A Greater trochanteric bursitis of both hips Status post left knee replacement (~10/2024) Coronary artery calcification no significant CAD per 2020 cath per chart review Dyslipidemia Chronic knee pain Vitamin D deficiency Chronic diastolic CHF (congestive heart failure) DVT prophylaxis DM II (diabetes mellitus, type II), controlled Disorder of intervertebral disc at C6-C7 level with radiculopathy 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 Emphysema without acute intrathoracic abnormality. 2. 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) Dyshidrotic eczema (Chronic) Bilateral carpal tunnel syndrome (Chronic) Arthritis of right shoulder region (Chronic) Leukocytosis Chronic pain syndrome (Chronic) Vitamin B12 deficiency SAUL (obstructive sleep apnea) WEARS O2 2L AT HS Hypertension Back pain (Chronic) Medical History (Updated 12/05/24 @ 18:23 by Valentin Pastor MD) AVN of femur mild AVN B/L femoral heads noted on 04/2023 Abd/Pelvis CT; unchanged from previous; following with ortho Cigarette smoker Chronic pain syndrome with chronic narcotic use Diverticulitis Arthritis Dyshidrotic eczema Renal insufficiency 09/16/24 eGFR 105.75 Chronic hypoxemic respiratory failure Dr Trimble; on Home O2 HS 2L and PRN daytime Chronic knee pain Hx of chest pain (05/11/24) states "over exerted" himself; hospitalized at [facility] (had a negative stress test) - No issues since Hx of gastric ulcer early 2022. no current issues. SAUL (obstructive sleep apnea) 2L of O2 via NC HS; does not tolerate CPAP Hx of supraventricular tachycardia pt unaware; follows with Dr Wanda REEVES (hard of hearing) wears bilateral hearing aides Hx: recurrent pneumonia 2019+2020+ most recently hospitalized at [facility] in 2021. no problems since. Osteoarthritis Hypertension Chronic CHF Dr Muñoz Chronic obstructive pulmonary disease controlled with daily inhaler-- average use 4-5 times monthly - Dr Trimble Hx of tinnitus History of anemia Hx of pulmonary hypertension (2019) Normal RVSP on 10/2022 ECHO Mild pulm HTN on 2019 RHC- PA pressure: 37/19 with a mean of 25 mmHg. Chronic neck pain Chronic back pain Urinary frequency nocturia Diabetes mellitus type 2, uncontrolled Diet Polyneuropathy feet bilateral Hyperlipemia reports he is not currently taking statin medication daily. GERD (gastroesophageal reflux disease) controlled, stable per pt NSTEMI (non-ST elevated myocardial infarction) (~2019) NSTEMI 2019- cardiac cath showed no CAD. Dr Muñoz Surgical History Status post right knee replacement (~05/2024) R TKA 07/13/24: MAC, SAB (L4-5 x 1 attempt), PNB (x 1 attempt); no issues with anesthesia History of colostomy reversal (08/08/23) Laparoscopic Reversal Colostomy, extensive enterolysis - Bernard Rocha, DO History of colon resection (04/29/23) Exploratory Laparotomy, Sigmoid colectomy with Diverting Colostomy, Takedown enterocolonic fistula with primary Repair(Not Applicable) - Bernard Rocha, DO History of esophagogastroduodenoscopy (EGD) History of tonsillectomy H/O exploratory laparotomy (04/29/23) with colostomy creation - r/t diverticulitis. H/O vasectomy + Reversal History of colonoscopy History of tooth extraction History of cholecystectomy Hx of appendectomy S/P cervical spinal fusion C3-C6 -> ROM slightly limited with numbness down the right arm. Hx of arthroscopic knee surgery Bilateral H/O cardiac catheterization 07/2020 [facility]; 'no significant CAD'; follows with Family History Father Heart disease age 37 - "heart attack" Hypertension Brother Coronary heart disease Hypertension Aunt Breast cancer Mother Hypertension Thyroid disease Other Allergies Cancer Diabetes No family history of adverse response to anesthesia No significant family history Denies family history of Tuberculosis Ovarian cancer Prostate cancer Emphysema, unspecified Colorectal cancer Lung disease Asthma Social History Smoking Status: Current every day smoker Tobacco Type: Cigarettes Age Started Using Tobacco: 19; packs per day: 1; Cigarettes Per Day: 1/2 to 3/4 pack; Second Hand Exposure: No; Do You Dip or Chew Tobacco: No; Hx Alcohol Use: No Hx Substance Use: No Preferred Language: Guatemalan Communication Ability: Effective Visual Impairment: No Limitations Hearing Ability: Normal 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 Beliefs That Will Affect Care: None marital status: Current Living Situation: Spouse Current Living Situation Comment: and son current occupational status: disabled Feels Safe at Home: Yes Safety Concerns: Feels Safe At This Time Childhood Exposure to Second-Hand Smoke: Yes Diet: low carbohydrate and other Diet Comment: no fiber caffeine: Yes Dental Care, Regularly: No Physical Activity Frequency: Does not Exercise Seatbelt Use: always Sunscreen Use: No Assistive Devices: Walker Review of Systems Review of Systems: All systems reviewed & are unremarkable except as noted in Subjective Physical Exam Physical Exam: General: No acute distress Skin: Warm and dry; L knee with vertical incision, healing and scar along medial aspect of knee healed. Erythematous and edematous, slightly warm to touch at lateral aspect of L knee Head: Normocephalic, atraumatic Eyes: PERRL, conjunctivae clear, sclera non-icteric ENT: External ear and ear canal without swelling; nose atraumatic; good dentition, tongue normal appearance, pharynx normal Neck: Supple, no LAD Cardio: Tachycardic, regular rhythm, no M/G/R, S1 and S2 normal Resp: No respiratory distress, inspiratory and expiratory wheezing throughout all lung olson, able to be heard without auscultation with stethoscope Abdomen: Soft, symmetric, nontender; No masses or hepatosplenomegaly; Bowel sounds normoactive MSK: No deformities, full ROM throughout; pulses palpable and equal; no edema. Neuro: Awake, alert; Muscle strength 5/5 bilaterally in UE/LE; Sensation intact bilaterally; CN grossly intact Psych: Appropriate mood and affect. Female family member present in room at time of visit. Results & Data Results & Data Vital Signs (Past 12 Hours) Vital Signs Temp Pulse Pulse Resp BP BP Pulse Ox 12/04/24 22:37 108 H 12/04/24 22:37 107 H 24 139/98 97 12/04/24 20:11 36.5 C 123 H 18 107/64 95 O2 Del Method 12/04/24 22:37 12/04/24 22:37 Room Air 12/04/24 20:11 Room Air Laboratory Results 12/04/24 23:21 Aerobic Blood Culture - Pending Blood Anaerobic Blood Culture - Pending 12/04/24 23:35 Aerobic Blood Culture - Pending Blood Anaerobic Blood Culture - Pending 12/04/24 20:25 WBC 18.06 H RBC 3.89 L Hgb 12.2 L Hct 37.7 L MCV 96.9 MCH 31.4 MCHC 32.4 RDW Std Deviation 53.4 H RDW Coeff of Liliya 15.1 H Plt Count 321 MPV 9.6 Immature Gran % (Auto) 1.3 Neut % (Auto) 82.9 Lymph % (Auto) 7.0 [place] % (Auto) 7.9 Eos % (Auto) 0.6 Baso % (Auto) 0.3 Neut # (Auto) 14.97 H Lymph # (Auto) 1.27 [place] # (Auto) 1.43 H Eos # (Auto) 0.11 Baso # (Auto) 0.05 Immature Gran # (Auto) 0.23 H Sodium 133 L Potassium 4.6 Chloride 103 Carbon Dioxide 22 Anion Gap 8 BUN 19 Creatinine 1.12 Est Cr Clr Drug Dosing 73.5 eGFR 74.74 BUN/Creatinine Ratio 17.0 Glucose 127 H Calcium 9.3 Total Bilirubin 0.5 AST 16 ALT 16 Alkaline Phosphatase 107 H Total Protein 7.4 Albumin 4.6 Globulin 2.8 Albumin/Globulin Ratio 1.6 Procalcitonin 4.21 H SARS-CoV-2 (PCR) NEGATIVE Influenza Type A (PCR) Positive A Influenza Type B (PCR) Negative RSV (RT-PCR) Negative Diagnostic Findings Chest X-Ray 12/04/24 20:14 Exam(s): XR CXR 1 VIEW EXAM: XR Chest, 1 View CLINICAL HISTORY: cp. TECHNIQUE: Frontal view of the chest. COMPARISON: Portable chest single view May 10, 2024 FINDINGS: Lungs: Unremarkable. No consolidation. The pulmonary vasculature demonstrates no significant radiographic abnormality. Pleural space: Unremarkable. No pneumothorax. No large pleural effusion. Heart: Unremarkable. No cardiomegaly. Mediastinum: The mediastinal contours are stable and unremarkable. The trachea is midline. Bones/joints: Posterior fusion throughout the cervical spine incidentally noted. No acute fracture. IMPRESSION: No acute cardiopulmonary process or significant alteration from the prior examination. Electronically signed by: Bernard Chavez MD 12/04/24 22:09 PM Knee X-Ray 12/04/24 20:15 Exam(s): XR LEFT KNEE, 3 views EXAM: XR Left Knee, 3 Views CLINICAL HISTORY: Knee trauma. TECHNIQUE: Three views of the left knee. COMPARISON: Radiographic evaluation of both knees 02/25/2024 FINDINGS: Bones/joints: There has been interval placement of a left total knee arthroplasty. No acute osseous traumatic injury. No periprosthetic lucency or fracture noted. No dislocation. Soft tissues: Soft tissue fullness suggested overlying the patella. No radiopaque foreign body or subcutaneous emphysema. IMPRESSION: Soft tissue fullness suggested overlying the patella. No radiopaque foreign body or subcutaneous emphysema. Left total knee arthroplasty. No acute osseous abnormality. Electronically signed by: Bernard Chavez MD 12/04/24 22:11 PM Medications Administered NSS 1L IV Morphine 4mg IV ECG Additional Comments: Sinus tachycardia 118 bpm, [place] 120, QRS 92, QT/QTc 322/451, PRT 45/67/64 Code Status & VTE Plan Code Status Full Supervising Physician Co-Signing Physician Notes Attending addendum: I have physically seen this patient, have supervised the VERONICA's activities, and agree with the H&P unless as otherwise noted. Assessment and Plan: The patient is a 59-year-old male with past med history including chronic pain syndrome, renal insufficiency, chronic hypoxemic respiratory failure, SAUL, hypertension, CHF, COPD, pulmonary hypertension, and diabetes mellitus type 2, who presents to the emergency department with 2 to 3 days of worsening shortness of breath, dyspnea on exertion, elevated temperature. In addition, he fell and injured his right knee, with history of total knee arthroplasty, affecting his ability to ambulate. Workup in the emergency department included a positive BioFire test for influenza A. The patient is referred to the [facility] for evaluation for admission. #Influenza A/acute on chronic respiratory failure with hypoxia/COPD exacerbation- BioFire test positive for influenza A Baseline oxygen requirement is 2 L via nasal cannula at bedtime, which she is increased to 3 L since being sick DuoNebs every 4 hours as needed Continue routine inhalers as outpatient, including Trelegy Give Solu-Medrol 125 mg IV now, and will continue 40 mg IV every 12 hours Tamiflu 75 mg p.o. twice daily x 5 days to begin now Tobacco cessation counseling Left knee pain/history of left TKA- Pain and swelling status post mechanical fall Follows in the outpatient setting with Dr. Fernandez Consult orthopedic surgery, and starting vancomycin IV and cefepime IV N.p.o. for possible procedure for the a.m. Chronic pain syndrome-continue duloxetine, gabapentin and oxycodone as outpatient Chronic medical conditions: Diabetes mellitus-holding metformin. Placed on Accu-Cheks with NovoLog SSI GERD/gastric ulcer/duodenitis-continue pantoprazole Hypertension-metoprolol and olmesartan BPH-tamsulosin Hyperlipidemia-atorvastatin PG Care Time/CCT Total # of Minutes Spent Total Time Spent with Patient: Total time spent is greater than 50% in coordination of care (as documented) at patient's floor/unit and/or counseling patient: Coding Level of Care Code 53972 INT INP/OBS CARE 75MIN Diagnoses Influenza A J10.1 Left knee injury S89.92XA
[2024-12-05] MEDS ORDERED: VANCOMYCIN CONSULT ACTIVE PRN (01:16)
[2024-12-05] MEDS ORDERED: NALOXONE HCL 0.4 MG/1 ML VIAL/CARP IV PRN (01:20)
[2024-12-05] MEDS ORDERED: MoRPHine SULFATE 2 MG/ML CARP IV PRN (01:20)
--- NOTE | 2024-12-05 01:29 | Orthopedic Consultation ---
Date of Consultation December 05, 2024 Assessment & Plan (1) Acute postoperative pain of knee: Patient is 1 month status post left total knee arthroplasty. He was doing well until yesterday and developed signs and symptoms of infection after having a fall. He has fevers, and elevated white blood cell count knee redness and significant pain. I have reviewed his radiographs and I do not see any evidence of fracture or dislocation. It is difficult to determine whether there is a radiographic effusion within the knee however there is anterior soft tissue swelling consistent with prepatellar bursal fluid accumulation. Due to the patient's discomfort I cannot really do a significant ligament exam. He does not have very good range of motion. With his permission I have recommended aspiration and he agreed to proceed. I marked the knee with my initials. Left knee. I prepped with ChloraPrep used cold spray then reprepped with alcohol. Then adjacent to the left knee incision I inserted an 18-gauge needle and aspirated used cold spray then reprepped with alcohol. Then adjacent to the left knee incision I inserted an 18-gauge needle and aspirated 60 cc of cloudy purulent appearing fluid which evacuated essentially the entire bursa. This was sent for Gram stain periprosthetic culture cell count with differential and crystal analysis. Once the fluid was out of the bursa I was able to appreciate fluid within the knee joint. I again sterilely prepped with ChloraPrep cold spray and alcohol. Posterior to where the bursa would be I inserted the needle within the knee joint. 18-gauge needle. I was able to aspirate 20 cc of the same fluid which again was sent for a periprosthetic culture Gram stain cell count differential and crystal analysis. Spoke with the hospitalist. Recommend admission to the hospital. He was going to be admitted anyhow for his COPD the exacerbation and flu. N.p.o. after midnight. He is on aspirin for blood thinners. He should not be on any chemoprophylaxis. I discussed with the patient that given the findings there is a high suspicion of periprosthetic knee infection. He may require surgical intervention consisting of a washout and poly exchange. Recommend that he be started on antibiotics. Vancomycin and cefepime. Will discuss the case with Dr. Fernandez in the morning. (2) Leukocytosis: (3) Flu: (4) Left knee injury: (5) Status post left knee replacement: History of Present Illness History of Present Illness Patient 59 years old. 1 month ago had left total knee replacement with Dr. Fernandez. No problems with the knee until yesterday. He slipped on the ice fell on his knee. Since then he is experienced knee redness pain and swelling. He had a fever of 103 today. For the past several days he has been coughing and has been found to be flu positive. He has had several prior surgeries on the knee. Allergies Allergy/AdvReac Type Severity Reaction Status Date / Time naproxen Allergy Intermediate Severe Rash Verified 12/04/24 23:52 bee venom protein (honey bee) AdvReac Severe Syncope Verified 12/04/24 23:52 tramadol AdvReac Intermediate Gastrointestinal Verified 12/04/24 23:52 Upset Home Medications Medication Instructions Recorded Confirmed Type blood sugar diagnostic (OneTouch #100 ea 02/15/21 09/17/24 Rx Verio test strips) lancets 33 gauge (OneTouch Delica #100 ea 02/15/21 09/17/24 Rx Lancets) epinephrine 0.3 mg/0.3 mL 0.3 mg IM DIRECTED PRN Allergic 02/21/22 12/04/24 History injection, auto-injector (EpiPen) Reaction ipratropium 0.5 mg-albuterol 3 mg 3 ml inhalation QID PRN Shortness 10/22/22 12/04/24 Rx (2.5 mg base)/3 mL nebulization Of Breath #180 mL soln Oxygen Home #1 ea 07/17/23 09/17/24 Rx pantoprazole 40 mg tablet,delayed 40 mg PO BID PRN Acid Reflux 07/30/23 12/04/24 History release (Protonix) albuterol sulfate 90 mcg/actuation 2 puff inhalation Q4H PRN Wheezing 11/28/23 12/04/24 Rx aerosol inhaler #8.5 grams Walking Cane #1 ea 12/06/23 09/17/24 Rx atorvastatin 80 mg tablet (Lipitor) 80 mg PO HS #90 tabs 05/11/24 12/04/24 Rx duloxetine 60 mg capsule,delayed 60 mg PO QAM 10/23/24 12/04/24 History release (Cymbalta) gabapentin 300 mg capsule 900 mg PO TID 10/23/24 12/04/24 History (Neurontin) olmesartan 5 mg tablet (Benicar) 5 mg PO QAM 10/23/24 12/04/24 History fluticasone fur. 100 mcg-umeclid 1 inh inhalation QAM #60 ea 10/29/24 12/04/24 Rx 62.5 mcg-vilant 25 mcg inhalat.powder (Trelegy Ellipta) aspirin 81 mg tablet,delayed 81 mg PO BID 42 days #84 tabs 11/06/24 12/04/24 Rx release ergocalciferol (vitamin D2) 1,250 50,000 unit PO WEEKLY 90 days #12 11/10/24 12/04/24 Rx mcg (50,000 unit) capsule caps morphine 15 mg tablet,extended 15 mg PO Q12H #60 tabs 11/13/24 12/04/24 Rx release oxycodone 5 mg tablet 5 mg PO Q6H PRN pain #30 tabs 11/30/24 12/04/24 Rx oxycodone 15 mg tablet 15 mg PO Q6H #90 tabs 12/02/24 12/04/24 Rx tamsulosin 0.4 mg capsule 0.4 mg PO HS 12/04/24 12/04/24 History Patient History Medical History AVN of femur mild AVN B/L femoral heads noted on 04/2023 Abd/Pelvis CT; unchanged from previous; following with ortho Cigarette smoker Chronic pain syndrome with chronic narcotic use Diverticulitis with colon perforation 04/25/23- admitted to [facility] - initially treated with IV abxs and fluids- s/p sigmoid colectomy with diverting colostomy 04/29/23 Arthritis Dyshidrotic eczema Chronic bronchitis Renal insufficiency 09/16/24 eGFR 105.75 Edema of knee-denies other edema Chronic hypoxemic respiratory failure Dr Trimble; on Home O2 HS 2L and PRN daytime Chronic knee pain Hx of chest pain (05/11/24) states "over exerted" himself; hospitalized at [facility] (had a negative stress test) - No issues since Hx of gastric ulcer early 2022. no current issues. SAUL (obstructive sleep apnea) 2L of O2 via NC HS; does not tolerate CPAP Sigmoid diverticulitis hx 04/2023 -- exploratory lap with colostomy creation-with later reversal Hx of supraventricular tachycardia pt unaware; follows with Dr Muñoz [place] (hard of hearing) wears bilateral hearing aides Hx: recurrent pneumonia 2019+2020+ most recently hospitalized at [facility] in 2021. no problems since. Osteoarthritis Hypertension BP elevated; olmesartan added at 09/17/24 PCP visit; awaiting f/u Chronic CHF Dr Muñoz Chronic obstructive pulmonary disease controlled with daily inhaler-- average use 4-5 times monthly - Dr Trimble Hx of tinnitus History of anemia Hx of pulmonary hypertension (2019) Normal RVSP on 10/2022 ECHO Mild pulm HTN on 2019 RHC- PA pressure: 37/19 with a mean of 25 mmHg. Chronic neck pain Chronic back pain Urinary frequency nocturia On home oxygen therapy 2L O2 at night and PRN daytime Diabetes mellitus type 2, uncontrolled Diet Polyneuropathy feet bilateral Hyperlipemia reports he is not currently taking statin medication daily. GERD (gastroesophageal reflux disease) controlled, stable per pt NSTEMI (non-ST elevated myocardial infarction) (~2019) NSTEMI 2019- cardiac cath showed no CAD. Dr Muñoz Surgical History Status post right knee replacement (~05/2024) R TKA 07/13/24: MAC, SAB (L4-5 x 1 attempt), PNB (x 1 attempt); no issues with anesthesia History of colostomy reversal (08/08/23) Laparoscopic Reversal Colostomy, extensive enterolysis - Bernard Rocha, DO History of colon resection (04/29/23) Exploratory Laparotomy, Sigmoid colectomy with Diverting Colostomy, Takedown enterocolonic fistula with primary Repair(Not Applicable) - Bernard Rocha, DO History of esophagogastroduodenoscopy (EGD) History of tonsillectomy H/O exploratory laparotomy (04/29/23) with colostomy creation - r/t diverticulitis. H/O vasectomy + Reversal History of colonoscopy History of tooth extraction History of cholecystectomy Hx of appendectomy S/P cervical spinal fusion C3-C6 -> ROM slightly limited with numbness down the right arm. Hx of arthroscopic knee surgery Bilateral H/O cardiac catheterization 07/2020 [facility]; 'no significant CAD'; follows with Family History Father Heart disease age 37 - "heart attack" Hypertension Brother Coronary heart disease Hypertension Aunt Breast cancer Mother Hypertension Thyroid disease Other Allergies Cancer Diabetes No family history of adverse response to anesthesia No significant family history Denies family history of Tuberculosis Ovarian cancer Prostate cancer Emphysema, unspecified Colorectal cancer Lung disease Asthma Social History Smoking Status: Current every day smoker Tobacco Type: Cigarettes Age Started Using Tobacco: 19; packs per day: 1; Cigarettes Per Day: 1/2 to 3/4 pack; Second Hand Exposure: No; Do You Dip or Chew Tobacco: No; Hx Alcohol Use: No Hx Substance Use: No Preferred Language: Jordanian Communication Ability: Effective Visual Impairment: No Limitations Hearing Ability: Normal Shirt Cleaner Required: No Beliefs That Will Affect Care: None marital status: Current Living Situation: Spouse Current Living Situation Comment: and son current occupational status: disabled Feels Safe at Home: Yes Childhood Exposure to Second-Hand Smoke: Yes Diet: low carbohydrate and other Diet Comment: no fiber caffeine: Yes Dental Care, Regularly: No Physical Activity Frequency: Does not Exercise Seatbelt Use: always Sunscreen Use: No Assistive Devices: Cane, Oxygen - at Night and Walker Physical Exam Physical Exam: He has hypersensitivity on the bottom of his foot but otherwise intact sensation. Reports history of neuropathy. DP pulses nonpalpable PT pulses 1+. The foot and leg are not swollen or tender. He has 5- out of 5 ankle and toe plantarflexion dorsiflexion inversion and eversion strength. His surgical incision is healing well. There is no drainage. There is erythema around the surgical incision. There is a substantial amount of fluid within the prepatellar bursa. There may be an intra-articular effusion as well. The knee is diffusely tender including the bursa and the joint lines. He cannot bend the knee more than about 10 degrees secondary to pain. He is able to do a straight leg raise with a mild lag. His knee extension is -5. The thigh and leg are nontender. Erythema is confined to the daryl-incisional region. Results & Data Vital Signs (Past 12 Hours) Vital Signs Temp Pulse Pulse Resp BP BP Pulse Ox 12/05/24 00:00 107 H 23 159/79 H 97 12/04/24 22:37 108 H 12/04/24 22:37 107 H 24 139/98 97 12/04/24 20:11 36.5 C 123 H 18 107/64 95 O2 Del Method 12/05/24 00:00 Room Air 12/04/24 22:37 12/04/24 22:37 Room Air 12/04/24 20:11 Room Air Laboratory Results Laboratory Results WBC 18.06 K/ul (4.8-10.8) H 12/04/24 20:25 RBC 3.89 M/uL (4.70-6.10) L 12/04/24 20: Hgb 12.2 g/dl (14.0-18.0) L 12/04/24: Hct 37.7 % (42.0-52.0) L 12/04/24 20: MCV 96.9 fL (80.0-100.0) 12/04/24: MCH 31.4 pg (25.0-34.0) 12/04/24 20: MCHC 32.4 g/dL (32.0-36.0) 12/04/24: RDW Std Deviation 53.4 fL (36.4-46.3) H 12/04/24: RDW Coeff of Liliya 15.1 % (11.5-14.5) H 12/04/24: Plt Count 321 K/uL (130-400) 12/04/24: MPV 9.6 fL (9.4-12.4) 12/04/24: Immature Gran % (Auto) 1.3 % 12/04/24: Neut % (Auto) 82.9 % 12/04/24 20: Lymph % (Auto) 7.0 % 12/04/24: Pitt % (Auto) 7.9 % 12/04/24: Eos % (Auto) 0.6 % 12/04/24: Baso % (Auto) 0.3 % 12/04/24 20:25 Neut # (Auto) 14.97 K/uL (1.40-6.50) H 12/04/24 20:25 Lymph # (Auto) 1.27 K/uL (1.20-3.40) 12/04/24 20:25 Pitt # (Auto) 1.43 K/uL (0.11-0.59) H 12/04/24 20:25 Eos # (Auto) 0.11 K/uL (0.00-0.50) 12/04/24 20:25 Baso # (Auto) 0.05 K/uL (0.00-0.20) 12/04/24 20:25 Immature Gran # (Auto) 0.23 K/uL (0.01-0.20) H 12/04/24 20:25 Sodium 133 mmol/L (136-145) L 12/04/24 20: Potassium 4.6 mmol/L (3.5-5.1) 12/04/24 20:25 Chloride 103 mmol/L (98-107) 12/04/24 20:25 Carbon Dioxide 22 mmol/L (21-32) 12/04/24 20:25 Anion Gap 8 (3-11) 12/04/24 20:25 BUN 19 mg/dl (6-23) 12/04/24 20:25 Creatinine 1.12 mg/dl (0.6-1.4) 12/04/24 20:25 Est Cr Clr Drug Dosing 73.5 ml/min 12/04/24 20:25 eGFR 74.74 12/04/24 20:25 BUN/Creatinine Ratio 17.0 (10-20) 12/04/24 20:25 Glucose 127 mg/dl (70-99(Fasting)) H 12/04/24 20:25 Calcium 9.3 mg/dl (8.6-10.3) 12/04/24 20:25 Total Bilirubin 0.5 mg/dl (0.2-1.0) 12/04/24 20:25 AST 16 U/L (13-39) 12/04/24 20:25 ALT 16 U/L (7-52) 12/04/24 20:25 Alkaline Phosphatase 107 U/L (34-104) H 12/04/24 20:25 Total Protein 7.4 gm/dl (6.0-8.3) 12/04/24 20:25 Albumin 4.6 gm/dl (3.4-5.0) 12/04/24 20:25 Globulin 2.8 gm/dl (2.5-4.0) 12/04/24 20:25 Albumin/Globulin Ratio 1.6 (0.9-2) 12/04/24 20: Procalcitonin 4.21 ng/ml (0-0.5) H 12/04/24 20:25 SARS-CoV-2 (PCR) NEGATIVE (Negative) 12/04/24 20:25 Influenza Type A (PCR) Positive (Neg) A 12/04/24 20:25 Influenza Type B (PCR) Negative (Neg) 12/04/24 20:25 RSV (RT-PCR) Negative (Neg) 12/04/24 20:25 Impressions Chest X-Ray 12/04/24 20:14 Exam(s): XR CXR 1 VIEW EXAM: XR Chest, 1 View CLINICAL HISTORY: cp. TECHNIQUE: Frontal view of the chest. COMPARISON: Portable chest single view May 10, 2024 FINDINGS: Lungs: Unremarkable. No consolidation. The pulmonary vasculature demonstrates no significant radiographic abnormality. Pleural space: Unremarkable. No pneumothorax. No large pleural effusion. Heart: Unremarkable. No cardiomegaly. Mediastinum: The mediastinal contours are stable and unremarkable. The trachea is midline. Bones/joints: Posterior fusion throughout the cervical spine incidentally noted. No acute fracture. IMPRESSION: No acute cardiopulmonary process or significant alteration from the prior examination. Electronically signed by: Bernard Chavez MD 12/04/24 22:09 PM Knee X-Ray 12/04/24 20:15 Exam(s): XR LEFT KNEE, 3 views EXAM: XR Left Knee, 3 Views CLINICAL HISTORY: Knee trauma. TECHNIQUE: Three views of the left knee. COMPARISON: Radiographic evaluation of both knees 02/25/2024 FINDINGS: Bones/joints: There has been interval placement of a left total knee arthroplasty. No acute osseous traumatic injury. No periprosthetic lucency or fracture noted. No dislocation. Soft tissues: Soft tissue fullness suggested overlying the patella. No radiopaque foreign body or subcutaneous emphysema. IMPRESSION: Soft tissue fullness suggested overlying the patella. No radiopaque foreign body or subcutaneous emphysema. Left total knee arthroplasty. No acute osseous abnormality. Electronically signed by: Bernard Chavez MD 12/04/24 22:11 PM (2) Leukocytosis Leukocytosis type: unspecified Qualified Code(s): D72.829 - Elevated white blood cell count, unspecified
[2024-12-05] MEDS ORDERED: VANCOMYCIN HCL 1,250 MG in SODIUM CHLORIDE 0.9% 250 ML IV SCH (01:30)
[2024-12-05] MEDS: ALBUT/IPRATROP 3MG/0.5MG NEB 3 ML VIAL NEB STA (01:43)
[2024-12-05] MEDS: LACTATED RINGER'S 1,000 ML IV SCH (01:44)
[2024-12-05] MEDS: CEFEPIME 2000MG 2,000 MG/20 ML SYR IV STA (01:44)
[2024-12-05] MEDS ORDERED: methylPREDNISolone 125 MG/2 ML VIAL IV SCH (02:07)
[2024-12-05] MEDS ORDERED: ONDANSETRON INJ 2 MG/ML 2 ML VIAL IV PRN (02:07)
[2024-12-05] MEDS ORDERED: POLYETHYLENE (MIRALAX) 17 GM PACK PO PRN (02:07)
[2024-12-05] MEDS ORDERED: ALBUT/IPRATROP 3MG/0.5MG NEB 3 ML VIAL INH PRN (02:07)
[2024-12-05] MEDS ORDERED: ALBUTEROL HFA 8 GM INHALER INH PRN (02:07)
[2024-12-05] MEDS: OSELTAMIVIR PHOSPHATE 75 MG CAP PO STA (02:17)
[2024-12-05] MEDS: methylPREDNISolone 125 MG/2 ML VIAL IV STA (02:18)
[2024-12-05] MEDS: VANCOMYCIN HCL 1,750 MG in SODIUM CHLORIDE 0.9% 500 ML IV STA (02:19)
[2024-12-05] MEDS: MoRPHine SULFATE 4 MG/ML 1 ML CARP\\VIAL IV PRN (03:01)
[2024-12-05 03:07] LABS: Appearance Synovial Fluid Turbid; Color Synovial Fluid Brown; Mononuclear WBC Synovial Man 14 %; Polynuclear WBC Synovial Man 86 %; RBC Synovial Fluid Manual 34750 /uL; Source Synovial Fluid Left Knee; WBC Synovial Fluid Manual 106700 /uL (0-200)
[2024-12-05] MEDS: ALBUT/IPRATROP 3MG/0.5MG NEB 3 ML VIAL NEB SCH (03:20)
[2024-12-05 06:42] LABS: Creatinine Clr Calc Pharmacy 121.1 ml/min
[2024-12-05 07:01] LABS: Folate (Folic Acid),Ser orPlas 5.31 ng/ml (>5.38)
--- NOTE | 2024-12-05 07:10 | Hospitalist Progress Note ---
Date of Service December 05, 2024 Assessment & Plan (1) Acute postoperative pain of knee: (2) Leukocytosis: (3) Flu: (4) Left knee injury: (5) Influenza A: (6) Status post left knee replacement: (7) Dyslipidemia: Plan Meet Lindsay is a 59 Y O Male with PMH of CAD, COPD, Pulmonary Hypertension , CHF, Dyslipidemia, DM II, Hypertension, Obstructive Sleep Apnea and Left total Knee Arthroplasty presented to ER with upper respiratory tract symptoms with intermittent fever. He fell last night on ice into his left knee and had swelling following this.Denies trauma to other body parts and loss of consciousness. (1).Acute exacerbation of COPD secondary to Influenza A -Symptoms of SOB, nonproductive cough, and fever x 3 days. Symptoms are better than last few days. - Recent exposure to 2 family members. H/o COPD as well. - BioFire positive influenza A; leukocytosis 18.06, procalcitonin 4.21; CXR without acute findings. -Blood culture show Gram Positive cocci in clusters -Nasal MRSA: Negative -Under Vancomycin and Cefepime - 2L O2 via NC at bedtime his baseline which she has increased since being sick to 3L, none with activity or during daytime - O2 as needed; wean to baseline as patient tolerates if needed - Currently O2 Sat 97 on RA. - Under Tamiflu 75 mg Po BID - DuoNeb 3ml Neb Q4Hr; Arnuity Ellipta 1 puff inhalation daily;Anoro Ellipta 1 puff inhalation daily -IV Solumedrol 40 mg BID (2)Prepatellar Bursitis s/p left knee replacement - Pain and swelling on left knee after mechanical fall -Recent arthroplasty on 11/07/2024 secondary to advanced arthritis of left knee and failure of conservative treatment. Following with Dr. Fernandez -Under Multiple medication for pain management at home included Gabapentin, Duloxetine, Oxycodone and Morphine -Of note, PDMP checked- pt with multiple prescribers and multiple refills since the start of the year. -Left Knee Xray: suggests soft tissue fullness overlying the patella, no acute findings or fractures - Pain regimen as ordered- morphine while npo, reversal ordered prn; Continue home Gabapentin and Duloxetine - Ortho consulted, High suspicion for periprosthetic infection; Under Vancomycin and Cefepime; May require surgical intervention requiring washout and polyexchange -Evaluated by ortho today. According to ortho, patient is not stable enough to go for a wash out. Will asses tomorrow. -Keep NPO tonight for possible procedure tomorrow. (3)Hyponatremia -Na : 133 -Likely secondary to poor oral intake over past 3 days . - Asymptomatic. Slightly hypovolemic on admitting exam. - Na 133, glucose 127; corrected 134 - Serum osmol: 285 Urine Na, Urine Osmol pending - IVF LR @ 80 mL/hr x 1 L - BMP am (4)T2DM -H/o DMT2, home regimen metformin - Most recent A1C April 2024 @ 6.3% - SSI with target BSG range 110-140mg/dL, CF [], carb ratio [] - BSG ACHS - Pharm glycemic management consult placed, appreciate assistance-adjust regimen as needed (5) Tobacco consumer -Patient consumes around 1 pack/ day starting from age 19 (6) Hypertension -Olmesartan 5mg PO at home - Stopped Metoprolol since December 2023 -BP elevated to the range of 180/90. May be due to pain - BP at 18:03 - 129/70 Chronic Condition #GERD/gastric ulcer/duodenitis- Pantoprazole #SAUL- Does not tolerate cpap; 2L O2 via NC at baseline #Anemia- Prior B12 and folate deficiency, receives monthly B12 injections and takes oral B12- H/H 12.2/37.7 at admission; repeat CBC am, pending B12 + folate levels #HLD- Atorvastatin #BPH- Tamsulosin Code: Full Code VTE prophylaxis: Not Now. Patient probably will have surgery tomorrow. Dispo: Med/Surg Admission and Anticipated Discharge Date Admission Date: December 05, 2024 Supervising Physician Co-Signing Physician Notes ATTESTATION I also saw the patient and confirmed ralph portions of the history and exam. I agree with the impression and plan in the resident documentation, and as summarized below. 59 y/o admitted to our service last evening for generalized weakness and shortness of breath x 3 days found to be positive for influenza A. Also, probably a result of the weakness, he notes falling a couple of days ago striking his left knee. He is status post left total knee arthroplasty. Orthopedics has been consulted. He also notes having a fever, Tmax 103 F proceeding presentation. He does have a history of chronic pain, renal insufficiency, chronic hypoxemic respiratory failure, obstructive sleep apnea, hypertension, CHF, COPD, pulmonary hypertension, and type 2 diabetes. Upon our exam in his room today, is at bedside. is recovering from influenza A, as is their 20-year-old son. He does feel little better today as compared to the last few days. EXAM 170/90, 98, 33, 37.2, 97% on room air Alert and oriented. Cardiovascular regular Lungs coarse, expiratory; he is actually getting a nebulizer treatment during auscultation Left knee with tenderness, erythema along the incision line DATA Labs white blood cell count 18.06, hemoglobin 12.2 Sodium 133, potassium 4.6, BUN 19, creatinine 1.12 Procalcitonin 4.21 Fluid aspirated from the left knee demonstrates [id number] WBCs Imaging Knee x-ray obtained upon admission shows soft tissue fullness overlying the left patella. Status post left total knee arthroplasty. Chest x-ray completed upon admission shows no acute process. Micro Fluid collected from the left knee preliminary staph aureus. Blood cultures collected 12/04/2024 are pending. IMPRESSION & PLAN Influenza A hyponatremia left knee injury/joint infection Tamiflu and Solu-Medrol for influenza A with underlying history of COPD; supplemental oxygen as needed IV fluids; monitor serum sodium Appreciate orthopedics consultation; continue current antibiotics pending culture results Will maximize respiratory status prior to surgery Additional per resident documentation Subjective Meet Lindsay is a 59 Y O Male with PMH of CAD, COPD, Pulmonary Hypertension , CHF, Dyslipidemia, DM II, Hypertension, Obstructive Sleep Apnea and Left total Knee Arthroplasty presented to ER with upper respiratory tract symptoms with intermittent fever. He fell last night on ice into his left knee and had swelling following this.Denies trauma to other body parts and loss of conscio usness. Ongoing symptoms: Having Pain in left knee. Pain better with analgesics. Upper respiratory infections are better as compared in the last few days Review of Systems Review of Systems: As per HPI Physical Exam Physical Exam: He has hypersensitivity on the bottom of his foot but otherwise intact sensation. Reports history of neuropathy. DP pulses nonpalpable PT pulses 1+. The foot and leg are not swollen or tender. He has 5- out of 5 ankle and toe plantarflexion dorsiflexion inversion and eversion strength. His surgical incision is healing well. There is no drainage. There is erythema around the surgical incision. There is a substantial amount of fluid within the prepatellar bursa. There may be an intra-articular effusion as well. The knee is diffusely tender including the bursa and the joint lines. He cannot bend the knee more than about 10 degrees secondary to pain. He is able to do a straight leg raise with a mild lag. His knee extension is -5. The thigh and l eg are nontender. Erythema is confined to the daryl-incisional region. Constitutional: WD/WN, vitals as above well developed; no acute distress Eyes: PERRL, conjunctivae normal, anicteric sclerae ENMT: external ear and nose normal, oropharynx normal Ears: no hearing impairment Neck: trachea midline, no thyromegaly trachea midline Respiratory: normal respiratory effort, lungs clear to auscultation normal respiratory effort and + respiratory distress; no labored breathing and no retractions Auscultation: + wheezes ( Right lung) Cardiovascular: RRR, no murmur, no edema Rate/Rhythm: regular rate and regular rhythm Chest (Breasts): normal inspection/palpation of breasts Chest: normal inspection of chest Musculoskeletal: Knee: + effusion, + surgical incision (well healing, erythema around surgical incision) and + joint line tenderness Results & Data Results & Data Vital Signs (Past 12 Hours) Vital Signs Temp Pulse Pulse Resp BP BP Pulse Ox 12/05/24 06:34 183/117 H 12/05/24 06:33 97 H 33 H 12/05/24 06:21 35 H 78 L 12/05/24 06:09 98 H 33 H 94 12/05/24 05:51 102 H 32 H 92 12/05/24 05:42 103 H 32 H 93 12/05/24 05:33 99 H 34 H 94 12/05/24 05:21 100 H 36 H 92 12/05/24 05:00 186/94 H 12/05/24 05:00 186/94 H 12/05/24 04:57 102 H 33 H 186/94 H 94 12/05/24 04:00 106 H 41 H 173/92 H 94 12/05/24 02:53 110 H 33 H 155/82 H 95 12/05/24 02:16 114 H 35 H 155/82 H 92 12/05/24 01:42 112 H 33 H 133/80 93 12/05/24 00:00 107 H 23 159/79 H 97 12/04/24 22:37 108 H 12/04/24 22:37 107 H 24 139/98 97 12/04/24 20:11 36.5 C 123 H 18 107/64 95 O2 Del Method 12/05/24 06:34 12/05/24 06:33 12/05/24 06:21 12/05/24 06:09 12/05/24 05:51 12/05/24 05:42 12/05/24 05:33 12/05/24 05:21 12/05/24 05:00 12/05/24 05:00 12/05/24 04:57 12/05/24 04:00 12/05/24 02:53 Room Air 12/05/24 02:16 Room Air 12/05/24 01:42 Room Air 12/05/24 00:00 Room Air 12/04/24 22:37 12/04/24 22:37 Room Air 12/04/24 20:11 Room Air (2) Leukocytosis Leukocytosis type: unspecified Qualified Code(s): D72.829 - Elevated white blood cell count, unspecified
[2024-12-05] MEDS ORDERED: NON-FORMULARY MEDICATION (Fluticasone-Umeclidin-Vilanter [Trelegy Ellipta] 100-62.5-25 mcg INH SCH (09:00)
[2024-12-05] MEDS: methylPREDNISolone 40 MG in SYRINGE 0 ML IV SCH (09:20)
[2024-12-05] MEDS: LOSARTAN POTASSIUM 25 MG TAB PO SCH (09:20)
[2024-12-05] MEDS: PANTOprazole 40 MG TAB PO PRN (09:20)
[2024-12-05] MEDS: OSELTAMIVIR PHOSPHATE 75 MG CAP PO SCH (09:20)
[2024-12-05] MEDS: GABAPENTIN 300 MG CAP PO SCH (09:21)
[2024-12-05] MEDS: CEFEPIME 2000MG 2,000 MG/20 ML SYR IV SCH (09:21)
[2024-12-05] MEDS: ASPIRIN 81 MG ECTAB PO SCH (09:21)
[2024-12-05] MEDS: DULoxetine HCL 60 MG CAP PO SCH (09:21)
[2024-12-05] MEDS: FLUTICASONE FUROATE 100MCG 14 PUFFS/INHALER INH SCH (09:22)
[2024-12-05] MEDS: UMECLIDINIUM/VILANTEROL 62.5/25MCG 7 PUFFS/INHALER INH SCH (09:22)
--- NOTE | 2024-12-05 10:24 | Orthopedic Progress Note ---
Date of Service December 05, 2024 Assessment & Plan (1) Acute postoperative pain of knee: Plan: Gram stain positive for gram-positive cocci. Fluid within the knee joint which is culture #2 had over 100,000 white blood cells. He is on Vanco and cefepime. Cultures pending. Crystal analysis pending. Indicative of periprosthetic joint infection. Spoke with Dr. Fernandez. Patient COPD exacerbation will be addressed. Plan is for surgery tomorrow afternoon with Dr. Fernandez. DA IR procedure. (2) Leukocytosis: (3) Flu: (4) Left knee injury: (5) Status post left knee replacement: Admission and Anticipated Discharge Date Admission Date: December 05, 2024 (2) Leukocytosis Leukocytosis type: unspecified Qualified Code(s): D72.829 - Elevated white blood cell count, unspecified
--- NOTE | 2024-12-05 10:52 | Pharmacy Report ---
Pharmacy PK ABX Note - Date of Service December 05, 2024 - Assessment and Plan Assessment * 59 year old M receiving cefepime and vancomycin for possible septic joint and/or COPD exacerbation 2nd influenza A * Pertinent microbiologic data includes: * Negative MRSA Nasal Swab * Blood cultures pending * L knee aspirate pending Plan Vancomycin * Loading dose: 1750 mg IV x 1 * Maintenance dose: 1500 mg IV every 12 hours * Regimen is predicted to achieve target AUC/MAXIMO of 400-600 mg/L.hr * Random level ordered for 12/07 @ 0800 Pharmacy will continue to follow and will adjust dose/frequency as necessary. Thank you. Pharmacy has transitioned to AUC monitoring for vancomycin. AUC/MAXIMO is the preferred PK/PD target and is associated with decreased risk of nephrotoxicity compared to traditional trough targets.
[2024-12-05] MEDS ORDERED: PHARMACY GLYCEMIC MGMT CONSULT PRN (11:02)
[2024-12-05] MEDS ORDERED: VANCOMYCIN HCL 1,000 MG/270 ML BAG IV SCH (12:00)
[2024-12-05] MEDS ORDERED: GLUCOSE 40% GEL 15 GM TUBE PO PRN (12:15)
[2024-12-05] MEDS ORDERED: CARBOHYDRATES FOR HYPOGLYCEMIA PO PRN (12:15)
[2024-12-05] MEDS ORDERED: GLUCOSE 10 TAB/TUBE PO PRN (12:15)
[2024-12-05] MEDS ORDERED: GLUCAGON FOR INJ 1 MG VIAL SQ PRN (12:15)
[2024-12-05] MEDS ORDERED: DEXTROSE 50% 50 ML SYRINGE IV PRN (12:15)
[2024-12-05] MEDS: VANCOMYCIN HCL 1,500 MG in SODIUM CHLORIDE 0.9% 500 ML IV SCH (12:30)
[2024-12-05] MEDS: INSULIN ASPART PER UNIT CHARGE SC SCH ×2 (12:31→23:32)
[2024-12-05 14:31] LABS: A calco-baum cmplx NotReported Not Detected (NotDetected); Bact fragilis Not Reported Not Detected (NotDetected); Blood Culture Id Panel See PCR Comment (NotDetected); C auris Not Reported Not Detected (NotDetected); Calbicans Not Reported Not Detected (NotDetected); Candida glabrata Not Reported Not Detected (NotDetected); Candida krusei Not Reported Not Detected (NotDetected); Cneoformans/gatti Not Reported Not Detected (NotDetected); Cparapsilosis Not Reported Not Detected (NotDetected); E cloacae compx Not Reported Not Detected (NotDetected); Efaecalis Not Reported Not Detected (NotDetected); Efaecium Not Reported Not Detected (NotDetected); Enterobacterales Not Reported Not Detected (NotDetected); Escherichia coli Not Reported Not Detected (NotDetected); H influenzae Not Reported Not Detected (NotDetected); K aerogenes Not Reported Not Detected (NotDetected); Koxytoca Not Reported Not Detected (NotDetected); Kpneumoniae grp Not Reported Not Detected (NotDetected); Lmonocyt Not Reported Not Detected (NotDetected); N meningitidis Not Reported Not Detected (NotDetected); P aeruginosa Not Reported Not Detected (NotDetected); Proteus spp Not Reported Not Detected (NotDetected); Salmonella spp Not Reported Not Detected (NotDetected); Staph lugdunensis Not Reported Not Detected (NotDetected); Staph spp. Not Reported DETECTED (NotDetected); Staphaureus Not Reported DETECTED (NotDetected); Staphepi Not Reported Not Detected (NotDetected); Stenmaltophilia Not Reported Not Detected (NotDetected); Strep agal(GrpB) Not Reported Not Detected (NotDetected); Strep pneum Not Reported Not Detected (NotDetected); Strep pyog (GrpA) Not Reported Not Detected (NotDetected); Strep spp Not Reported Not Detected (NotDetected); mecAC+MREJ Resistant Gene MRSA Not Detected (NotDetected)
[2024-12-05 14:37] LABS: Staphylococcus spp. DETECTED (NotDetected)
--- NOTE | 2024-12-05 14:49 | Pharmacy Report ---
Pharmacy Glycemic Short Note 2 - Date of Service December 05, 2024 - Glycemic Short BSG Results (Last 24 hours): 12/04/24 12/05/24 12/05/24 20:25 07:45 11:29 Glucose 127 H POC Glucose 181 H 187 H OUTPATIENT ANTIDIABETIC REGIMEN: * metformin * A1c = 6% (09/16/24) ASSESSMENT: * Meet is a 59 yo T2DM who presented with SOB and cough for three days. In addition to this patient had recent fall on ice and since has developed erythema and edema of left leg. He is s/p L TKA on 11/06/24. He has been evulated by orthopedics with plans to undergo L knee I&D on 12/06/24. * Patient has been started on antibiotics and methylprednisolone 40 mg IV q12h. Anticipate steroid induced hyperglycemia. * Will initiate weight based SQ bolus + basal insulin based on weight/stress 2. PLAN FOR INPATIENT GLYCEMIC CONTROL: * Hold outpatient oral diabetes medications * Basal insulin * Lantus 15 units SQ x 1 * Bolus insulin * NovoLog per scale ACHS or Q6hrs while NPO * Goal Range: Low 110 mg/dL - High 140 mg/dL * Correction Factor: 30 mg/dL/unit * Nutritional / Prandial insulin per carb ratio of 1 unit per 9 grams CHO consumed
[2024-12-05] MEDS: LANTUS PER UNIT CHARGE SC ONE ×2 (17:00→17:16)
--- NOTE | 2024-12-05 18:26 | Anesthesiology Consultation ---
Date of Service December 05, 2024 Assessment & Plan (1) Encounter for pre-operative examination: Chart Review Chart Review: Acceptable Risk for Surgery (urgent) History Surgery Operation Date: 12/06/24 14:00 Proposed Procedures p Left Total Knee Irrigation and Debridement, Possible DAIR Total Knee Arthroplasty - Trung Fernandez, Height/Weight Height: 5 ft 8 in Weight: 85 kg Allergies Allergy/AdvReac Type Severity Reaction Status Date / Time naproxen Allergy Intermediate Severe Rash Verified 12/04/24 23:52 bee venom protein (honey bee) AdvReac Severe Syncope Verified 12/04/24 23:52 tramadol AdvReac Intermediate Gastrointestinal Verified 12/04/24 23:52 Upset Medications Home Medications Medication Instructions Recorded Confirmed Last Taken blood sugar diagnostic (OneTouch #100 ea 02/15/21 09/17/24 Unknown Verio test strips) lancets 33 gauge (OneTouch Delica #100 ea 02/15/21 09/17/24 Unknown Lancets) epinephrine 0.3 mg/0.3 mL 0.3 mg IM DIRECTED PRN Allergic 02/21/22 12/04/24 Unknown injection, auto-injector (EpiPen) Reaction ipratropium 0.5 mg-albuterol 3 mg 3 ml inhalation QID PRN Shortness 10/22/22 12/04/24 2 Days Ago (2.5 mg base)/3 mL nebulization Of Breath #180 mL ~06/10/24 soln Oxygen Home #1 ea 07/17/23 09/17/24 Unknown pantoprazole 40 mg tablet,delayed 40 mg PO BID PRN Acid Reflux 07/30/23 12/04/24 10 Days Ago release (Protonix) ~06/02/24 albuterol sulfate 90 mcg/actuation 2 puff inhalation Q4H PRN Wheezing 11/28/23 12/04/24 12/04/24 aerosol inhaler #8.5 grams Walking Cane #1 ea 12/06/23 09/17/24 Unknown atorvastatin 80 mg tablet (Lipitor) 80 mg PO HS #90 tabs 05/11/24 12/04/24 12/03/24 duloxetine 60 mg capsule,delayed 60 mg PO QAM 10/23/24 12/04/24 12/03/24 release (Cymbalta) gabapentin 300 mg capsule 900 mg PO TID 10/23/24 12/04/24 12/04/24 (Neurontin) olmesartan 5 mg tablet (Benicar) 5 mg PO QAM 10/23/24 12/04/24 12/03/24 fluticasone fur. 100 mcg-umeclid 1 inh inhalation QAM #60 ea 10/29/24 12/04/24 12/04/24 62.5 mcg-vilant 25 mcg inhalat.powder (Trelegy Ellipta) aspirin 81 mg tablet,delayed 81 mg PO BID 42 days #84 tabs 11/06/24 12/04/24 12/04/24 release ergocalciferol (vitamin D2) 1,250 50,000 unit PO WEEKLY 90 days #12 11/10/24 12/04/24 12/03/24 mcg (50,000 unit) capsule caps morphine 15 mg tablet,extended 15 mg PO Q12H #60 tabs 11/13/24 12/04/24 12/04/24 release oxycodone 5 mg tablet 5 mg PO Q6H PRN pain #30 tabs 11/30/24 12/04/24 12/03/24 oxycodone 15 mg tablet 15 mg PO Q6H #90 tabs 12/02/24 12/04/24 12/03/24 tamsulosin 0.4 mg capsule 0.4 mg PO HS 12/04/24 12/04/24 12/03/24 Active Medications Generic Name Dose Route Start Last Admin Trade Name Freq PRN Reason Stop Dose Admin Albuterol 3 ml 12/05/24 03:00 12/05/24 15:46 Albut/Ipratrop 3mg/0.5mg Neb 3 Ml Vial NEB 01/04/25 02:59 3 ml Q4R ERIN Administration Protocol Aspirin 81 mg 12/05/24 09:00 12/05/24 09:21 Aspirin 81 Mg Ectab PO 01/04/25 08:59 81 mg BID ERIN Administration Duloxetine HCl 60 mg 12/05/24 09:00 12/05/24 09:21 Duloxetine Hcl 60 Mg Cap PO 01/04/25 08:59 60 mg QAM ERIN Administration Fluticasone Furoate 1 puffs 12/05/24 09:00 12/05/24 09:22 Fluticasone Furoate 100mcg 14 Puffs/Inhaler INH 01/04/25 08:59 1 puffs DAILY ERIN Administration Gabapentin 900 mg 12/05/24 09:00 12/05/24 14:21 Gabapentin 300 Mg Cap PO 01/04/25 08:59 900 mg TID ERIN Administration Cefepime HCl 2,000 mg in 20 mls @ 5 mls/min 12/05/24 10:00 12/05/24 17:58 Maxipime 2000mg IV 01/16/25 09:59 5 mls/min Q8H ERIN Administration Protocol Methylprednisolone 40 mg/ 0.64 mls @ 1.5 mls/min 12/05/24 09:00 12/05/24 09:20 Syringe IV 01/04/25 08:59 1.5 mls/min Q12H ERIN Administration Vancomycin HCl 1,500 mg/ 530 mls @ 200 mls/hr 12/05/24 12:00 12/05/24 15:11 Sodium Chloride IV 01/16/25 11:59 Infused Q12H ERIN Infusion Insulin Aspart 0 units 12/05/24 12:15 12/05/24 17:00 Insulin Aspart Per Unit Charge SC 01/04/25 12:14 5 units ACHS ERIN Administration Losartan Potassium 12.5 mg 12/05/24 09:00 12/05/24 09:20 Losartan Potassium 25 Mg Tab PO 01/04/25 08:59 12.5 mg QAM ERIN Administration Morphine Sulfate 4 mg 12/05/24 01:20 12/05/24 17:37 Morphine Sulfate 4 Mg/Ml 1 Ml Carp\\Vial IV 12/19/24 01:19 4 mg Q3H PRN Administration Pain (6,7,8,9,10) Oseltamivir Phosphate 75 mg 12/05/24 09:00 12/05/24 09:20 Oseltamivir Phosphate 75 Mg Cap PO 12/09/24 09:01 75 mg BID ERIN Administration Pantoprazole Sodium 40 mg 12/05/24 02:07 12/05/24 09:20 Pantoprazole 40 Mg Tab PO 01/04/25 02:06 40 mg BID PRN Administration Acid Reflux Umeclidinium/Vilanterol 1 puffs 12/05/24 09:00 12/05/24 09:22 Umeclidinium/Vilanterol 62.5/25mcg 7 Puffs/Inhaler INH 01/04/25 08:59 1 puffs DAILY ERIN Administration Past Medical History Medical History (Updated 12/05/24 @ 18:23 by Valentin Pastor MD) AVN of femur mild AVN B/L femoral heads noted on 04/2023 Abd/Pelvis CT; unchanged from previous; following with ortho Cigarette smoker Chronic pain syndrome with chronic narcotic use Diverticulitis Arthritis Dyshidrotic eczema Renal insufficiency 09/16/24 eGFR 105.75 Chronic hypoxemic respiratory failure Dr Trimble; on Home O2 HS 2L and PRN daytime Chronic knee pain Hx of chest pain (05/11/24) states "over exerted" himself; hospitalized at [facility] (had a negative stress test) - No issues since Hx of gastric ulcer early 2022. no current issues. SAUL (obstructive sleep apnea) 2L of O2 via NC HS; does not tolerate CPAP Hx of supraventricular tachycardia pt unaware; follows with Dr Wanda REEVES (hard of hearing) wears bilateral hearing aides Hx: recurrent pneumonia 2019+2020+ most recently hospitalized at [facility] in 2021. no problems since. Osteoarthritis Hypertension Chronic CHF Dr Muñoz Chronic obstructive pulmonary disease controlled with daily inhaler-- average use 4-5 times monthly - Dr Trimble Hx of tinnitus History of anemia Hx of pulmonary hypertension (2019) Normal RVSP on 10/2022 ECHO Mild pulm HTN on 2019 RHC- PA pressure: 37/19 with a mean of 25 mmHg. Chronic neck pain Chronic back pain Urinary frequency nocturia Diabetes mellitus type 2, uncontrolled Diet Polyneuropathy feet bilateral Hyperlipemia reports he is not currently taking statin medication daily. GERD (gastroesophageal reflux disease) controlled, stable per pt NSTEMI (non-ST elevated myocardial infarction) (~2019) NSTEMI 2020- cardiac cath showed no CAD. Dr Muñoz Past Family History Family History Father Heart disease age 37 - "heart attack" Hypertension Brother Coronary heart disease Hypertension Aunt Breast cancer Mother Hypertension Thyroid disease Other Allergies Cancer Diabetes No family history of adverse response to anesthesia No significant family history Denies family history of Tuberculosis Ovarian cancer Prostate cancer Emphysema, unspecified Colorectal cancer Lung disease Asthma Past Surgical History Surgical History Status post right knee replacement (~05/2024) R TKA 07/13/24: MAC, SAB (L4-5 x 1 attempt), PNB (x 1 attempt); no issues with anesthesia History of colostomy reversal (08/08/23) Laparoscopic Reversal Colostomy, extensive enterolysis - Bernard Rocha DO History of colon resection (04/29/23) Exploratory Laparotomy, Sigmoid colectomy with Diverting Colostomy, Takedown enterocolonic fistula with primary Repair(Not Applicable) - Bernard Rocha DO History of esophagogastroduodenoscopy (EGD) History of tonsillectomy H/O exploratory laparotomy (04/29/23) with colostomy creation - r/t diverticulitis. H/O vasectomy + Reversal History of colonoscopy History of tooth extraction History of cholecystectomy Hx of appendectomy S/P cervical spinal fusion C3-C6 -> ROM slightly limited with numbness down the right arm. Hx of arthroscopic knee surgery Bilateral H/O cardiac catheterization 07/2020 [facility]; 'no significant CAD'; follows with Social History Smoking Status: Current every day smoker tobacco type: cigarettes Smoking cigarettes per day: 1/2 to 3/4 pack Do You Dip or Chew Tobacco: No Hx Alcohol Use: No Alcohol type: beer alcohol intake frequency: holidays/special occasions only Hx Substance Use: No substance use type: does not use Physical Exam Vital Signs Last Vital Signs Temp 36.6 C 12/05/24 14:21 Pulse 93 H 12/05/24 18:03 Resp 20 12/05/24 18:03 BP 129/70 12/05/24 18:03 Pulse Ox 95 12/05/24 18:03 O2 Del Method Room Air 12/05/24 18:03 FiO2 12/05/24 15:46 Testing Laboratory Results 12/04/24 20:25 12/05/24 05:51 Blood Type O Positive 12/05/24 01:40 Antibody Screen NEGATIVE 12/05/24 01:40 12/05/24 01:28 Gram Stain - Final Knee,Left Aerobic and Anaerobic Culture - Preliminary Staphylococcus aureus 12/04/24 23:21 Aerobic Blood Culture - Preliminary Blood Gram positive cocci clusters Anaerobic Blood Culture - Preliminary Gram positive cocci clusters 12/04/24 23:35 Anaerobic Blood Culture - Preliminary Blood Gram positive cocci clusters 12/05/24 Unknown Gram Stain - Final Knee,Left 12/05/24 12/05/24 12/05/24 16:27 11:29 07:45 POC Glucose 152 H 187 H 181 H Laboratory Tests 12/04/24 12/05/24 20:25 05:51 Potassium 4.6 Creatinine 0.68 D Electrocardiogram Date: 12/04/24 Findings: + ST @ (118) Echocardiogram Date: 05/11/24 EF: 60% LV Function: normal Valvular Disease: + no significant valvular disease
[2024-12-05] MEDS: ATORVASTATIN 40 MG TAB PO SCH (21:07)
[2024-12-05] MEDS: TAMSULOSIN HCL 0.4 MG CAP PO SCH (21:07)
[2024-12-05] MEDS: MELATONIN 3 MG TAB PO PRN (21:13)
[2024-12-06 06:33] LABS: Hematocrit (blood only) 30.6 % (42.0-52.0); Mean Corpuscular Hemoglobin 31.3 pg (25.0-34.0); Mean Corpuscular Hgb Conc 32.7 g/dL (32.0-36.0); Mean Corpuscular Volume 95.9 fL (80.0-100.0); Mean Platelet Volume 9.6 fL (9.4-12.4); Platelet Count 286 K/uL (130-400); RDW Coefficient of Variation 15.2 % (11.5-14.5); RDW Standard Deviation 53.1 fL (36.4-46.3); Red Blood Count 3.19 M/uL (4.70-6.10); White Blood Count 18.38 K/ul (4.8-10.8)
[2024-12-06] MEDS ORDERED: Nursing to Pharmacy Communication SCH ×3 (06:45→16:15)
[2024-12-06] MEDS: INSULIN ASPART PER UNIT CHARGE SC SCH ×2 (06:50→17:02)
[2024-12-06 06:58] LABS: Albumin Globulin Ratio 1.2 (0.9-2); Albumin Level 3.4 gm/dl (3.4-5.0); Bilirubin,Total 0.3 mg/dl (0.2-1.0); C Reactive Protein 20.24 mg/dl (0-0.5); Calcium 8.8 mg/dl (8.6-10.3); Creatinine Clr Calc Pharmacy 149.7 ml/min; Globulin 2.8 gm/dl (2.5-4.0); Total Protein 6.2 gm/dl (6.0-8.3)
[2024-12-06 08:19] LABS: Basophils # (auto) 0.02 K/uL (0.00-0.20); Basophils % (auto) 0.1 %; Hypersegmented Neutrophils 1+; Immature Granulocytes # (auto) 0.12 K/uL (0.01-0.20); Immature Granulocytes % (auto) 0.7 %; Lymphocytes # (auto) 0.84 K/uL (1.20-3.40); Lymphocytes % (auto) 4.6 %; Monocytes # (auto) 0.68 K/uL (0.11-0.59); Monocytes % (auto) 3.7 %; Neutrophils # (auto) 16.72 K/uL (1.40-6.50); Neutrophils % (auto) 90.9 %
[2024-12-06] MEDS: LANTUS PER UNIT CHARGE SC SCH ×2 (09:23→20:45)
[2024-12-06] MEDS ORDERED: VANCOMYCIN CONSULT ACTIVE PRN (09:25)
--- NOTE | 2024-12-06 10:08 | Hospitalist Progress Note ---
Date of Service December 06, 2024 Assessment & Plan (1) Acute postoperative pain of knee: (2) Leukocytosis: (3) Flu: (4) Left knee injury: (5) Influenza A: (6) Status post left knee replacement: (7) Dyslipidemia: Plan Meet Lindsay is a 59 Y O Male with PMH of CAD, COPD, Pulmonary Hypertension , CHF, Dyslipidemia, DM II, Hypertension, Obstructive Sleep Apnea and Left total Knee Arthroplasty presented to ER with upper respiratory tract symptoms with intermittent fever. He fell last night on ice into his left knee and had swelling following this.Denies trauma to other body parts and loss of consciousness. (1).Acute exacerbation of COPD secondary to Influenza A -Symptoms of SOB, nonproductive cough, and fever x 3 days. Symptoms are better than last few days. - Recent exposure to 2 family members. H/o COPD as well. - BioFire positive influenza A; leukocytosis 18.06, procalcitonin 4.21; CXR without acute findings. -Blood culture show Gram Positive cocci in clusters . Staph aureus sensitive to Methicillin. -Nasal MRSA: Negative - Stop Vancomycin and Cefepime - Switch to Cefazolin -Will repeat culture tomorrow at 6 AM. - 2L O2 via NC at bedtime his baseline which she has increased since being sick to 3L, none with activity or during daytime - O2 as needed; wean to baseline as patient tolerates if needed - Currently O2 Sat 97 on RA. - Under Tamiflu 75 mg Po BID - DuoNeb 3ml Neb Q4Hr; Arnuity Ellipta 1 puff inhalation daily;Anoro Ellipta 1 puff inhalation daily -IV Solumedrol 40 mg BID (2)Prepatellar Bursitis s/p left knee replacement - Pain and swelling on left knee after mechanical fall -Recent arthroplasty on 11/07/2024 secondary to advanced arthritis of left knee and failure of conservative treatment. Following with Dr. Fernandez -Under Multiple medication for pain management at home included Gabapentin, Duloxetine, Oxycodone and Morphine -Of note, PDMP checked- pt with multiple prescribers and multiple refills since the start of the year. -Left Knee Xray: suggests soft tissue fullness overlying the patella, no acute findings or fractures - Pain regimen as ordered- morphine while npo, reversal ordered prn; Continue home Gabapentin and Duloxetine - Ortho consulted, High suspicion for periprosthetic infection; Under Vancomycin and Cefepime; May require surgical intervention requiring washout and polyexchange -Patient will have procedure today at 2:00 PM. (3)Hyponatremia Resolved - On presentation Na : 133 -Repeat: 140 (4)T2DM -H/o DMT2, home regimen metformin - Most recent A1C April 2024 @ 6.3% - SSI with target BSG range 110-140mg/dL, CF [], carb ratio [] - BSG ACHS - Pharm glycemic management consult placed, appreciate assistance-adjust regimen as needed (5) Tobacco consumer -Patient consumes around 1 pack/ day starting from age 19 (6) Hypertension -Olmesartan 5mg PO at home - Stopped Metoprolol since December 2023 -BP elevated to the range of 180/90. May be due to pain - Stable now Chronic Condition #GERD/gastric ulcer/duodenitis- Pantoprazole #SAUL- Does not tolerate cpap; 2L O2 via NC at baseline #Anemia- Prior B12 and folate deficiency, receives monthly B12 injections and takes oral B12- H/H 12.2/37.7 at admission; repeat CBC am, pending B12 + folate levels #HLD- Atorvastatin #BPH- Tamsulosin Code: Full Code VTE prophylaxis: not now. Will see after surgery Dispo: Med/Surg Admission and Anticipated Discharge Date Admission Date: December 05, 2024 Supervising Physician Co-Signing Physician Notes ATTESTATION I also saw the patient and confirmed ralph portions of the history and exam. I agree with the impression and plan in the resident documentation, and as summarized below. He does feel better today as compared to yesterday. Breathing is little bit easier. He is scheduled for surgery at 2 PM EXAM Alert and oriented. Cardiovascular regular Lungs sounds Improved compared to yesterday. Right greater than left expiratory wheezes. Left knee with tenderness, erythema along the incision line DATA Labs white blood cell count 18.38, hemoglobin 10.0 ESR 66; CRP 20.24 Sodium 137, potassium 4.0, BUN 22, creatinine 0.55 Imaging Knee x-ray obtained upon admission shows soft tissue fullness overlying the left patella. Status post left total knee arthroplasty. Chest x-ray completed upon admission shows no acute process. Micro Fluid collected from the left knee preliminary staph aureus. Blood cultures collected 12/04/2024 Demonstrate Staph aureus (2/2). IMPRESSION & PLAN Influenza A hyponatremia left knee injury/joint infection Left Total Knee Irrigation and Debridement with poly exchange, POD Day #0 Tamiflu and Solu-Medrol for influenza A with underlying history of COPD; supplemental oxygen as needed Repeat blood cultures tomorrow AM Continue Ancef Additional per resident documentation Subjective Meet Lindsay is a 59 Y O Male with PMH of CAD, COPD, Pulmonary Hypertension , CHF, Dyslipidemia, DM II, Hypertension, Obstructive Sleep Apnea and Left total Knee Arthroplasty presented to ER with upper respiratory tract symptoms with intermittent fever. He fell last night on ice into his left knee and had swelling following this.Denies trauma to other body parts and loss of consciousness. Ongoing symptoms: Having Pain in left knee. Pain better with analgesics. Upper respiratory infections are better as compared in the last few days Review of Systems Review of Systems: As per HPI Physical Exam Constitutional: WD/WN, vitals as above well developed; no acute distress Eyes: PERRL, conjunctivae normal, anicteric sclerae ENMT: external ear and nose normal, oropharynx normal Ears: no hearing impairment Neck: trachea midline, no thyromegaly trachea midline Respiratory: normal respiratory effort, lungs clear to auscultation normal respiratory effort and + respiratory distress; no labored breathing and no retractions Auscultation: + wheezes ( Right lung) Cardiovascular: RRR, no murmur, no edema Rate/Rhythm: regular rate and regular rhythm Musculoskeletal: Knee: + effusion, + surgical incision (well healing, erythema around surgical incision) and + joint line tenderness Results & Data Results & Data Vital Signs (Past 12 Hours) Vital Signs Temp Pulse Pulse Resp BP Pulse Ox O2 Del Method 12/06/24 08:30 Room Air 12/06/24 07:39 36.4 C L 112 H 18 131/68 96 Nasal Cannula 12/06/24 07:13 107 H 17 94 Nasal Cannula 12/06/24 03:06 36.5 C 105 H 20 120/71 94 Nasal Cannula 12/06/24 02:29 107 H 18 94 Nasal Cannula 12/05/24 22:22 107 H 18 92 Nasal Cannula O2 Flow Rate 12/06/24 08:30 12/06/24 07:39 2 12/06/24 07:13 2 12/06/24 03:06 2 02/23/25 02:29 2 12/05/24 22:22 2 (2) Leukocytosis Leukocytosis type: unspecified Qualified Code(s): D72.829 - Elevated white blood cell count, unspecified
--- NOTE | 2024-12-06 10:13 | Electrocardiogram Report ---
Test Reason : Blood Pressure : */* mmHG Vent. Rate : 118 BPM Atrial Rate : 118 BPM P-R Int : 120 ms QRS Dur : 92 ms QT Int : 322 ms P-R-T Axes : 45 67 64 degrees QTcB Int : 451 ms Sinus tachycardia Otherwise normal ECG When compared with ECG of 10-May-2024 19:09, No significant change was found Confirmed by Phil Ac ([id number]) on 12/06/2024 10:13:15 AM Referred By: Confirmed By: Phil Ac
[2024-12-06] MEDS ORDERED: MIDAZOLAM HCL 1 MG/ML 2ML VIAL ONE ×2 (13:57→14:35)
[2024-12-06] MEDS ORDERED: fentaNYL citrate PF 100 MCG/2 ML VIAL ONE ×3 (13:57→15:26)
[2024-12-06] MEDS ORDERED: PROPOFOL IV EMULSION 10 MG/ML 20 ML VIAL IV ONE (13:57)
--- NOTE | 2024-12-06 14:07 | Orthopedic Progress Note ---
Date of Service December 06, 2024 Assessment & Plan (1) Acute postoperative pain of knee: I discussed diagnosis and treatment options with him. I think he is dealing with a periprosthetic infection of his left knee. The knee aspirate done by another provider came back positive for infection. I think it is reasonable to take him to the operating room today to perform an irrigation debridement and poly exchange of the left knee. He and his understand the risk benefits alternatives to procedure elected to proceed. Questions were answered and consents were signed at bedside. He is currently NPO. I plan to take him to the operating room later today. Delbert Dsouza was seen and examined at bedside this morning. Overall he is doing okay. His lungs seem better today. He still having a lot of pain in the left knee. No other complaints.. Review of Systems All systems reviewed & are unremarkable except as noted in HPI & below. Physical Exam On physical examination of the left knee, there is a large effusion. There are some erythema in the area. It is relatively unchanged from yesterday.. Results & Data Results & Data Laboratory Results . Diagnostic Findings . PG Care Time/CCT Total # of Minutes Spent Total Time Spent with Patient: Total time spent is greater than 50% in coordination of care (as documented) at patient's floor/unit and/or counseling patient: Coding Level of Care Code 17528 SUB INP/OBS CARE 2/35MIN (57 - DECISION FOR SURGERY) Diagnoses Acute postoperative pain of knee G89.18; M25.569
[2024-12-06] MEDS ORDERED: ATROPINE SULFATE 0.1 MG/ML 10ML SYR IV PRN (14:17)
[2024-12-06] MEDS ORDERED: PROMETHAZINE HCL 6.25 MG in SODIUM CHLORIDE 0.9% 50 ML IV PRN (14:17)
[2024-12-06] MEDS ORDERED: ALBUT/IPRATROP 3MG/0.5MG NEB 3 ML VIAL INH PRN (14:18)
[2024-12-06] MEDS ORDERED: ROCURONIUM BROMIDE 10 MG/ML 5 ML VIAL IV ONE (14:19)
[2024-12-06] MEDS ORDERED: DEXAMETHASONE SOD INJ 4 MG/ML VIAL ONE (14:34)
[2024-12-06] MEDS ORDERED: ONDANSETRON INJ 2 MG/ML 2 ML VIAL ONE (14:47)
[2024-12-06] MEDS ORDERED: LABETALOL HCL IV 5 MG/ML 20ML IV ONE (15:01)
[2024-12-06] MEDS ORDERED: SUGAMMADEX SODIUM 200 MG/2 ML VIAL IV ONE (15:24)
[2024-12-06] MEDS: LIDOCAINE 1% LOCAL 20 ML VIAL ONE (15:37)
[2024-12-06] MEDS: BUPIVACAINE 0.5 % 5 MG/1 ML MPF 30ML VIAL ONE (15:37)
[2024-12-06] MEDS: DAKIN'S SOLN 0.5% FULL STRENGTH 473ML BTL EXT ONE (15:37)
--- NOTE | 2024-12-06 16:09 | Operative Report ---
PG Post Operative Report Pre & Post Diagnosis Operation Date: 12/06/24 14:00 Pre-Op Diagnosis: Prosthetic joint infection left knee Post-Op Diagnosis: Periprosthetic joint infection left knee I identified the patient and participated in the time-out.: Yes Procedure Operation Date: 12/06/24 14:00 Actual Procedures p Left Total Knee Irrigation and Debridement with poly exchange (Left) - Trung Fernandez DO Surgeon Trung Fernandez DO Sales Contracts Analyst none Estimated Blood Loss 20 Findings Consistent with Post-Op Diagnosis Specimens Intraoperative cultures Description of Procedure On December 06, 2024 Meet came down from his hospital room to the preoperative holding area. The operative extremity identified and signed. He was already on preoperative antibiotics. He was taken back to the operative room and put under general anesthesia. The left knee was prepped and draped sterile fashion. A timeout was done. The patient and the operative extremity was properly identified. The previous longitudinal incision over the left knee was opened back up. There was a large amount of purulent discharge that came out of the wound. There was also dehiscence around the medial parapatellar approach. The knee was grossly infected. Culture swabs were taken. The knee was then preliminary washed out. The extensor mechanism was then opened back up with a medial parapatellar approach. The polyethylene insert was then removed. Significant time was spent doing a debridement of all surrounding soft tissues to ensure that all infected appearing tissue was removed. Once this was accomplished a 3-minute Betadine lavage was then done. The knee was then brushed vigorously with a Betadine scrub brush. The knee was then irrigated with 3 L of normal saline solution by pulse lavage. The knee was then irrigated with full-strength Dakin solution for 3 minutes. The knee was then brushed vigorously with a Betadine scrub brush. The knee was then irrigated with 3 L of normal saline solution by pulse lavage. The knee was then irrigated with an additional 3 L of normal saline solution by pulse lavage. All gloves were changed. New Bovie tips and suction tips were used. New drapes were placed down. A clean table was then brought in. A 10 mm polyethylene implant was then snapped into place. The knee was lightly ir rigated. 2 Hemovac drains were placed. The extensor mechanism was then closed with #1 Vicryl. Skin was closed with 2-0 Vicryl, 3 oh V-Loc suture, and ruben. He was then placed in a soft compressive dressing. He was then extubated and transferred to a hospital bed. He was taken to the postanesthesia care unit in stable condition. He tolerated the procedure well. I attest to the content of the Intraoperative Record and any orders documented therein. Any exceptions are noted below.
[2024-12-06] MEDS: HYDROmorphone INJ 1 MG/ML SYRINGE IV PRN (16:10)
--- NOTE | 2024-12-06 16:58 | Anesthesiology Progress Note ---
Date of Service December 06, 2024 Anesthesia Post Procedure Vital Signs Vital Signs: Temp Pulse Pulse Pulse Resp BP Pulse Ox 12/06/24 16:46 91 H 18 161/93 H 95 12/06/24 16:35 36.4 C L 92 H 20 145/84 H 92 12/06/24 16:25 87 20 156/94 H 100 12/06/24 16:15 89 21 155/100 H 99 12/06/24 16:05 36.1 C L 89 13 127/84 99 12/06/24 11:06 102 H 17 95 12/06/24 08:30 12/06/24 07:39 36.4 C L 112 H 18 131/68 96 12/06/24 07:13 107 H 17 94 12/06/24 03:06 36.5 C 105 H 20 120/71 94 12/06/24 02:29 107 H 18 94 12/05/24 22:22 107 H 18 92 12/05/24 21:15 12/05/24 20:51 36.7 C 106 H 18 143/77 H 93 12/05/24 19:49 103 H 18 93 12/05/24 18:03 93 H 20 129/70 95 O2 Del Method O2 Flow Rate 12/06/24 16:46 Nasal Cannula 2 12/06/24 16:35 Room Air 0 12/06/24 16:25 Oxymask 4 12/06/24 16:15 Oxymask 8 12/06/24 16:05 Oxymask 8 12/06/24 11:06 Nasal Cannula 2 12/06/24 08:30 Room Air 12/06/24 07:39 Nasal Cannula 2 12/06/24 07:13 Nasal Cannula 2 12/06/24 03:06 Nasal Cannula 2 12/06/24 02:29 Nasal Cannula 2 12/05/24 22:22 Nasal Cannula 2 12/05/24 21:15 Nasal Cannula 2 12/05/24 20:51 Nasal Cannula 2 12/05/24 19:49 Room Air 12/05/24 18:03 Room Air Pain Intensity Left Knee: Pain Intensity: 6 Transfer of Care Handoff Completed per policy Notes Mental Status: alert / awake / arousable Patient Amnestic to Procedure: Yes Nausea / Vomiting: adequately controlled Pain: adequately controlled Airway Patency, RR, SpO2: stable & adequate BP & HR: stable & adequate Hydration State: stable & adequate Anesthetic Complications: no major complications apparent
[2024-12-06] MEDS: ceFAZolin 2000MG 2,000 MG/15 ML SYR IV SCH (17:01)
[2024-12-06] MEDS: oxyCODONE HCL IR 5 MG TAB (IMMEDIATE RELEASE) PO PRN (22:56)
[2024-12-07] MEDS: ACETAMINOPHEN 500 MG TAB PO PRN
[2024-12-07 06:45] LABS: Basophils # (auto) 0.01 K/uL (0.00-0.20); Basophils % (auto) 0.1 %; Eosinophils # (auto) 0.01 K/uL (0.00-0.50); Eosinophils % (auto) 0.1 %; Hematocrit (blood only) 28.9 % (42.0-52.0); Hemoglobin 9.5 g/dl (14.0-18.0); Immature Granulocytes # (auto) 0.12 K/uL (0.01-0.20); Immature Granulocytes % (auto) 0.8 %; Lymphocytes # (auto) 1.02 K/uL (1.20-3.40); Lymphocytes % (auto) 6.5 %; Mean Corpuscular Hgb Conc 32.9 g/dL (32.0-36.0); Mean Corpuscular Volume 97.3 fL (80.0-100.0); Mean Platelet Volume 9.8 fL (9.4-12.4); Monocytes % (auto) 2.6 %; Neutrophils # (auto) 14.06 K/uL (1.40-6.50); Neutrophils % (auto) 89.9 %; Platelet Count 327 K/uL (130-400); RDW Standard Deviation 54.3 fL (36.4-46.3); Red Blood Count 2.97 M/uL (4.70-6.10); White Blood Count 15.62 K/ul (4.8-10.8)
--- NOTE | 2024-12-07 06:48 | Hospitalist Progress Note ---
Date of Service December 07, 2024 Assessment & Plan (1) Acute postoperative pain of knee: (2) Leukocytosis: (3) Flu: (4) Left knee injury: (5) Influenza A: (6) Status post left knee replacement: (7) Dyslipidemia: Plan Meet Lindsay is a 59 Y O Male with PMH of CAD, COPD, Pulmonary Hypertension , CHF, Dyslipidemia, DM II, Hypertension, Obstructive Sleep Apnea and Left total Knee Arthroplasty presented to ER with upper respiratory tract symptoms with intermittent fever. He fell last night on ice into his left knee and had swelling following this.Denies trauma to other body parts and loss of consciousness. (1)Acute exacerbation of COPD secondary to Influenza A -Symptoms of SOB, nonproductive cough, and fever x 3 days. Symptoms are better than last few days. - Recent exposure to 2 family member - BioFire positive influenza A - Procalcitonin: 4.21; CXR without acute findings. - WBC: 18.38> 15.62 - 2L O2 via NC at bedtime his baseline which she has increased since being sick to 3L, none with activity or during daytime - Currently O2 Sat 95 on 2L/min. - Under Tamiflu 75 mg Po BID - DuoNeb 3ml Neb Q4Hr; Arnuity Ellipta 1 puff inhalation daily;Anoro Ellipta 1 puff inhalation daily -IV Solumedrol 40 mg BID (2)Staphylococcus Aureus Bacteremia -Blood culture show Gram Positive cocci in clusters . Staph aureus sensitive to Methicillin. - Left Knee culture is positive for Staphylococcus Aureus -Nasal MRSA: Negative -Stop Vancomycin and Cefepime -Switch to Cefazolin. Continue Cefazolin IV for 6wks and oral Rifampin once the infection is clear -Repeat Blood Culture Today. Reports Pending -WBC : 18.38>15.62 - Echocardiogram today to rule out endocarditis: Echo revealed No valvular Vegetations identified,no significant valvular pathology Normal left Ventricular Systolic Function, No regional wall motion abnormalities, mild concentric left ventricular Hypertrophy, Left Ventricular Ejection Fraction of 60 to 65%. -Infectious Disease Consultation. As per ID consultation Continue cefazolin IV for 6 wks and Oral Rifampin once infection is clear. Donot place PICC until BC clear for 48-72 hours. (3)Left total knee Irrigation and Debridement with Poly exchange for periprosthetic knee infection - Procedure yesterday at 14:00. Acco to ortho note, there was a large amount of purulent discharge that came out of the wound. The knee was grossly infected. - Pain and swelling on left knee after mechanical fall -Recent arthroplasty on 11/07/2024 secondary to advanced arthritis of left knee and failure of conservative treatment. Following with Dr. Fernandez -Under Multiple medication for pain management at home included Gabapentin, Duloxetine, Oxycodone and Morphine -Left Knee Xray(12/06): suggests soft tissue fullness overlying the patella, no acute findings or fractures - Pain regimen as ordered- morphine; Oxycodone and Tylenol; Continue home Ga bapentin and Duloxetine (3)Hyponatremia Resolved - On presentation Na : 133 -Repeat: 140 (4)T2DM -H/o DMT2, home regimen metformin - Most recent A1C (05/06)- 6.3% - SSI with target BSG range 110-140mg/dL, - BSG ACHS - Pharm glycemic management consult placed, appreciate assistance-adjust regimen as needed (5) Tobacco consumer -Patient consumes around 1 pack/ day starting from age 19 (6) Hypertension -Olmesartan 5mg PO at home - Stopped Metoprolol since December 2023 -BP elevated to the range of 180/90. May be due to pain - Stable now Chronic Condition #GERD/gastric ulcer/duodenitis- Pantoprazole #SAUL- Does not tolerate cpap; 2L O2 via NC at baseline #Anemia- Prior B12 and folate deficiency, receives monthly B12 injections and takes oral B12- H/H 12.2/37.7 at admission; repeat CBC am, Vitamin B12: Normal; Folate: 5.31 #HLD- Atorvastatin #BPH- Tamsulosin Code: Full Code VTE prophylaxis: TEDs, SCD and Aspirin 81mg BID Dispo: Med/Surg Admission and Anticipated Discharge Date Admission Date: December 05, 2024 Supervising Physician Co-Signing Physician Notes I personally examined the patient and verified all ralph points of history and exam, discussed case, and agree with decision making with Dr Jhaveri knee pain is only real problem vitals noted nad heent nc at mmm breathing unlabored no accessory muscles good effort skin no rashes no pallor or icterus IMPRESSION & PLAN Influenza A hyponatremia left knee injury/joint infection and MSSA bacteremia Left Total Knee Irrigation and Debridement with poly exchange, POD Day #0 Tamiflu and Solu-Medrol for influenza A with underlying history of COPD; supplemental oxygen as needed repeat blood cultures/TTE reassuring for endocarditis Continue Ancef; appreciate ID input otherwise as above Subjective Meet Lindsay is a 59 Y O Male with PMH of CAD, COPD, Pulmonary Hypertension , CHF, Dyslipidemia, DM II, Hypertension, Obstructive Sleep Apnea and Left total Knee Arthroplasty presented to ER with upper respiratory tract symptoms with intermittent fever. He fell on ice into his left knee and had swelling following this.Denies trauma to other body parts and loss of consciousness. Overnight events: Patient mentioned he didn't sleep well because he was having a lot of pain in his knee . Ongoing symptoms: Having Pain in left knee. Pain better with analgesics. Upper respiratory infections are better as compared in the last few days . Denies fever, sweats , headache and abdominal pain.Has chronic pain in the back New concerns: No any Review of Systems Review of Systems: As per HPI Physical Exam Constitutional: WD/WN, vitals as above well developed; no acute distress Eyes: PERRL, conjunctivae normal, anicteric sclerae ENMT: external ear and nose normal, oropharynx normal Ears: no hearing impairment Neck: trachea midline, no thyromegaly trachea midline Respiratory: normal respiratory effort, lungs clear to auscultation normal respiratory effort and + respiratory distress; no labored breathing and no retractions Auscultation: lungs clear to auscultation bilaterally Cardiovascular: RRR, no murmur, no edema Rate/Rhythm: regular rate and regular rhythm Chest (Breasts): normal inspection/palpation of breasts Chest: normal inspection of chest Musculoskeletal: Knee: + effusion, + surgical incision (well healing, erythema around surgical incision) and + joint line tenderness Results & Data Results & Data Vital Signs (Past 12 Hours) Vital Signs Temp Pulse Resp BP Pulse Ox O2 Del Method O2 Flow Rate 12/07/24 03:02 36.4 C L 99 H 16 118/71 95 Nasal Cannula 2 12/07/24 02:16 98 H 18 97 Nasal Cannula 2 12/06/24 23:39 36.7 C 98 H 16 123/72 96 Nasal Cannula 2 12/06/24 23:27 96 H 18 96 Nasal Cannula 2 12/06/24 20:40 Room Air 12/06/24 20:25 36.9 C 101 H 14 126/77 94 Room Air 12/06/24 19:39 85 18 95 Nasal Cannula 2 12/06/24 19:06 36.3 C L 94 H 16 138/82 94 Nasal Cannula 2 (2) Leukocytosis Leukocytosis type: unspecified Qualified Code(s): D72.829 - Elevated white blood cell count, unspecified
[2024-12-07 07:14] LABS: Albumin Globulin Ratio 1.1 (0.9-2); Albumin Level 3.1 gm/dl (3.4-5.0); Bilirubin,Total 0.3 mg/dl (0.2-1.0); Calcium 8.4 mg/dl (8.6-10.3); Creatinine Clr Calc Pharmacy 119.3 ml/min; Globulin 2.8 gm/dl (2.5-4.0); Potassium 4.1 mmol/L (3.5-5.1); Total Protein 5.9 gm/dl (6.0-8.3)
--- NOTE | 2024-12-07 10:17 | Orthopedic Progress Note ---
Date of Service December 07, 2024 Assessment & Plan (1) Status post left knee replacement: (2) Infection of total left knee replacement: Plan 59-year-old gentleman POD# 1 s/p I&D with poly exchange of left total knee replacement, doing well overall. He is neurologically intact. Has been on IV Ancef since the surgery. Plan: 1. DVT prophylaxis w/ TEDs, SCDs, ASA 81 mg BID. 2. PT/OT as tolerated. WBAT on the LLE. Encourage heel slides, SLR, full knee extension w/ quad sets. 3. Patient states 10/10 pain with movement of the left lower extremity, but he does not appear anywhere near that level of pain. Dr. Fernandez to see patient this afternoon. Continue current pain regimen for now. 4. Dressing changes per Dr. Fernandez. Leave drain intact until further instructed to remove. 5. Placed order for PICC line to be placed; plan is for 6 weeks of IV antibiot ics. 6. Ultimate antibiotic choice per infectious disease; service was consulted today. IntraOp cultures pending, but preliminarily showing Staphylococcus aureus. 7. Disposition - pending. 8. F/u 2 weeks post-op w/ orthopedics (Dr. Fernandez's team), for initial post-op visit. Subjective Patient is POD#1 s/p I&D with poly exchange of left total knee arthroplasty by Dr. Fernandez on 12/06/2024. This was performed due to periprosthetic infection of the left knee replacement. Patient says his pain level improves with the medications, but that when he tries to move the left lower extremity at all he has 10 out of 10 pain. However, the patient does not appear to be in anywhere near that degree of pain. He specifically asks if his morphine could be switched to Dilaudid. Denies CP, SOB, N/V, LLE paresthesia. He has been receiving IV antibiotics of Ancef since the surgery. Review of Systems All systems reviewed & are unremarkable except as noted in HPI & below. Physical Exam GENERAL: AA&Ox3, NAD. Pleasant, affect is calm. Sitting upright in bed and appears relatively comfortable, but does complain of 10/10 pain. RESPIRATORY: Normal respiratory effort with no signs of distress. CHEST/AXILLA: Chest movement symmetrical. No deformities noted. CARDIOVASCULAR: No edema noted. SKIN: [place], warm and dry. MS/EXTREMITY: Knee dressing & DIVINA wrap c/d/i; drain tube in place and seems to be good suction. Knee-high JUSTINE hose donned bilaterally. SCDs in place. + ankle dorsi/plantarflexion. NVI distally. Calf soft/NT. PT/DP pulses intact, 2+. Results & Data Results & Data Laboratory Results . 12/06/24 15:00 Gram Stain - Final Knee,Left Aerobic and Anaerobic Culture - Preliminary Staphylococcus aureus 12/04/24 23:21 Aerobic Blood Culture - Final Blood Staphylococcus aureus Anaerobic Blood Culture - Final Staphylococcus aureus 12/07/24 06:28 Aerobic Blood Culture - Pending Blood Anaerobic Blood Culture - Pending 12/07/24 06:28 Aerobic Blood Culture - Pending Blood Anaerobic Blood Culture - Pending 12/04/24 23:35 Aerobic Blood Culture - Preliminary Blood No growth in Aerobic bottle after 48 hours. Anaerobic Blood Culture - Preliminary Staphylococcus aureus 12/05/24 Unknown Gram Stain - Final Knee,Left Aerobic and Anaerobic Culture - Preliminary Staphylococcus aureus 12/05/24 01:28 Gram Stain - Final Knee,Left Aerobic and Anaerobic Culture - Preliminary Staphylococcus aureus 12/07/24 12/07/24 12/06/24 07:41 06:28 20:23 WBC 15.62 H RBC 2.97 L Hgb 9.5 L Hct 28.9 L MCV 97.3 MCH 32.0 MCHC 32.9 RDW Std Deviation 54.3 H RDW Coeff of Liliya 15.0 H Plt Count 327 MPV 9.8 Immature Gran % (Auto) 0.8 Neut % (Auto) 89.9 Lymph % (Auto) 6.5 Whiteside % (Auto) 2.6 Eos % (Auto) 0.1 Baso % (Auto) 0.1 Neut # (Auto) 14.06 H Lymph # (Auto) 1.02 L Whiteside # (Auto) 0.40 Eos # (Auto) 0.01 Baso # (Auto) 0.01 Immature Gran # (Auto) 0.12 Sodium 139 Potassium 4.1 Chloride 104 Carbon Dioxide 28 Anion Gap 7 BUN 29 H Creatinine 0.69 Est Cr Clr Drug Dosing 119.3 eGFR 105.29 BUN/Creatinine Ratio 42.0 H Glucose 150 H POC Glucose 163 H 181 H Calcium 8.4 L Total Bilirubin 0.3 AST 27 ALT 31 Alkaline Phosphatase 68 Total Protein 5.9 L Albumin 3.1 L Globulin 2.8 Albumin/Globulin Ratio 1.1 Synovial Crystals 12/06/24 12/06/24 12/05/24 16:53 12:17 01:28 WBC RBC Hgb Hct MCV MCH MCHC RDW Std Deviation RDW Coeff of Liliya Plt Count MPV Immature Gran % (Auto) Neut % (Auto) Lymph % (Auto) Whiteside % (Auto) Eos % (Auto) Baso % (Auto) Neut # (Auto) Lymph # (Auto) Whiteside # (Auto) Eos # (Auto) Baso # (Auto) Immature Gran # (Auto) Sodium Potassium Chloride Carbon Dioxide Anion Gap BUN Creatinine Est Cr Clr Drug Dosing eGFR BUN/Creatinine Ratio Glucose POC Glucose 152 H 172 H Calcium Total Bilirubin AST ALT Alkaline Phosphatase Total Protein Albumin Globulin Albumin/Globulin Ratio Synovial Crystals Diagnostic Findings . PG Care Time/CCT Total # of Minutes Spent Total Time Spent with Patient: Total time spent is greater than 50% in coordination of care (as documented) at patient's floor/unit and/or counseling patient: [place] [address] SUB INP/OBS CARE 2/35MIN Patient Type Established History Expanded Problem Focused Exam Expanded Problem Focused Medical Decision Making Moderate Complexity Diagnoses Status post left knee replacement Z96.652 Infection of total left knee replacement T84.54XA
--- NOTE | 2024-12-07 12:25 | Infectious Disease Consult ---
Date of Consultation December 07, 2024 Assessment & Plan (1) Infection of total left knee replacement: (2) On home oxygen therapy: (3) Leukocytosis: (4) Influenza A: Plan This is a 59-year-old man with a past medical history of chronic pain syndrome, chronic hypoxemic respiratory failure on2L nasal cannula at night only, SAUL, CHF, COPD, DM 2, pulmonary hypertension, right TKA (05/2024), left TKA 11/06/2024 who presents with cough and shortness of breath for 3 days associated with fevers and weakness. He also reports left knee pain after he slipped and fell on ice. His left knee and leg was swollen, tender and erythematous post fall. Denies incision dehiscence or drainage. Denies nausea, vomiting, abdominal pain, rash, numbness or tingling of the lower extremities. On admission T36.5, pulse 123, O2 sats 95% on room air. Labs WBC 18.06, BUN 19, creatinine 1.12, ESR 66, CRP 20.24, procalcitonin 4.21. Influenza A+. COVID and RSV negative. MRSA nasal screen negative. XRAY LLE showed knee soft tissue fullness overlying the patella.. Chest x-ray with no acute cardiopulmonary process. He was evaluated by orthopedics for large left knee effusion and underwent aspiration of the prepatellar bursa as well as knee joint fluid with greater than 100 K synovial WBC (86% polys). Joint fluid culture and periprosthetic culture positive for MSSA. Blood cultures positive for MSSA / bottles. He underwent left total knee irrigation and debridement with poly exchange on 12/06/24. Intraoperative cultures obtained. So far growing Staph aureus. He is currently on cefazolin. Rifampin due to start tonight. Repeat blood cultures pending. He is on day 4 of oseltamivir. He has less cough and knee pain. ID consulted for antibiotic management. An echocardiogram is pending. Microbiology Blood culture 12/04 3/4 bottles positive for MSSA Left knee joint wound culture 12/05 MSSA Left knee periprosthetic bursa culture 12/05 MSSA Left knee OR culture 12/06 Staph aureus (prelim) Blood culture 12/07 pending Antibiotics Cefepime 12/04 - 12/06 Vancomycin 12/04 - 12/06 Oseltamivir 12/04ongoing Cefazolin 12/06ongoing #High grade MSSA Bacteremia #MSSA Septic Left prosthetic knee joint infection #Leukocytosis, improving #Influenza A infection # Acute on chronic hypoxic respiratory failure. 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 Need to r ule out endocarditis. Would not start rifampin or place PICC line until blood cultures cleared. He has a right TKA and cervical spine hardware but no signs of infection at the sites on exam. Recommendations Continue Cefazolin 2 g IVq 8 hours Held rifampin for now and will START once blood cultures are clear, as resistance can develop while still bacteremic with staph aureus Follow up repeat BCx 12/07 to ensure clearance Follow up TTE If repeat BC + , NIGEL Follow up OR cultures to finalization Complete 5 days of oseltamivir for influenza A infection DO NOT place picc until BC clear for 48-72 hours Anticipate 6 weeks IV abx ( Cefazolin)PLUS oral rifampin (to start once BC clear) for MSSA bacteremia with MSSA Left knee PJI followed by suppression( cefadroxil and rifampin) i/s/o retained L Knee hardware. Thank you for this consult.ID will continue to follow. Alisson Bird MD, MPH Infectious Disease ID [facility] Call [phone] with questions Consultation Information Consultation was provided via telemedicine using two-way real-time interactive telecommunication between the patient and the telemedicine provider. For the duration of the visit, the provider was performing the assessment from a different facility than the patient. This includesuse of bluetooth stethoscope forauscultationperformed by the telepresenter that the telemedicine provider can hear if described in the physical exam. [employer] contact information: Please call [facility] . (Phone Number For Physician Use Only) After establishing a telemedicine visit, patient was: Patient was verified with two unique identifiers Time Spent with Patient: Initial => 75 min History of Present Illness Reason for Consultation: Bacteremia/ IV antibiotic recommendations Requesting Physician: MICHELLE Teixeira Attending Physician: Prashant Dennis DO History of Present Illness This is a 59-year-old man with a past medical history of chronic pain syndrome, chronic hypoxemic respiratory failure on2L nasal cannula at night only, SAUL, CHF, COPD, DM 2, pulmonary hypertension, right TKA (05/2024), left TKA 11/06/2024 who presents with cough and shortness of breath for 3 days associated with fevers and weakness. He also reports left knee pain after he slipped and fell on ice. His left knee and leg was swollen, tender and erythematous post fall. Denies incision dehiscence or drainage. Denies nausea, vomiting, abdominal pain, rash, numbness or tingling of the lower extremities. On admission T36.5, pulse 123, O2 sats 95% on room air. Labs WBC 18.06, BUN 19, creatinine 1.12, ESR 66, CRP 20.24, procalcitonin 4.21. Influenza A+. COVID and RSV negative. MRSA nasal screen negative. XRAY LLE showed knee soft tissue fullness overlying the patella.. Chest x-ray with no acute cardiopulmon daniela process. He was evaluated by orthopedics for large left knee effusion and underwent aspiration of the prepatellar bursa as well as knee joint fluid with greater than 100 K synovial WBC (86% polys). Joint fluid culture and periprosthetic culture positive for MSSA. Blood cultures positive for MSSA 3/4 bottles. He underwent left total knee irrigation and debridement with poly exchange on 12/06/24. Intraoperative cultures obtained. So far growing Staph aureus. He is currently on cefazolin. Rifampin due to start tonight. Repeat blood cultures pending. He is on day 4 of oseltamivir. He has less cough and knee pain. ID consulted for antibiotic management. An echocardiogram is pending. Allergies Allergy/AdvReac Type Severity Reaction Status Date / Time naproxen Allergy Intermediate Severe Rash Verified 12/04/24 23:52 bee venom protein (honey bee) AdvReac Severe Syncope Verified 12/04/24 23:52 tramadol AdvReac Intermediate Gastrointestinal Verified 12/04/24 23:52 Upset Home Medications Medication Instructions Recorded Confirmed Type blood sugar diagnostic (TheBankCloudTouch #100 ea 02/15/21 09/17/24 Rx Verio test strips) lancets 33 gauge (OneTouch Delica #100 ea 02/15/21 09/17/24 Rx Lancets) epinephrine 0.3 mg/0.3 mL 0.3 mg IM DIRECTED PRN Allergic 02/21/22 12/04/24 History injection, auto-injector (EpiPen) Reaction ipratropium 0.5 mg-albuterol 3 mg 3 ml inhalation QID PRN Shortness 10/22/22 12/04/24 Rx (2.5 mg base)/3 mL nebulization Of Breath #180 mL soln Oxygen Home #1 ea 07/17/23 09/17/24 Rx pantoprazole 40 mg tablet,delayed 40 mg PO BID PRN Acid Reflux 07/30/23 12/04/24 History release (Protonix) albuterol sulfate 90 mcg/actuation 2 puff inhalation Q4H PRN Wheezing 11/28/23 12/04/24 Rx aerosol inhaler #8.5 grams Walking Cane #1 ea 12/06/23 09/17/24 Rx atorvastatin 80 mg tablet (Lipitor) 80 mg PO HS #90 tabs 05/11/24 12/04/24 Rx duloxetine 60 mg capsule,delayed 60 mg PO QAM 10/23/24 12/04/24 History release (Cymbalta) gabapentin 300 mg capsule 900 mg PO TID 10/23/24 12/04/24 History (Neurontin) olmesartan 5 mg tablet (Benicar) 5 mg PO QAM 10/23/24 12/04/24 History fluticasone fur. 100 mcg-umeclid 1 inh inhalation QAM #60 ea 10/29/24 12/04/24 Rx 62.5 mcg-vilant 25 mcg inhalat.powder (Trelegy Ellipta) aspirin 81 mg tablet,delayed 81 mg PO BID 42 days #84 tabs 11/06/24 12/04/24 Rx release ergocalciferol (vitamin D2) 1,250 50,000 unit PO WEEKLY 90 days #12 11/10/24 12/04/24 Rx mcg (50,000 unit) capsule caps morphine 15 mg tablet,extended 15 mg PO Q12H #60 tabs 11/13/24 12/04/24 Rx release oxycodone 5 mg tablet 5 mg PO Q6H PRN pain #30 tabs 11/30/24 12/04/24 Rx oxycodone 15 mg tablet 15 mg PO Q6H #90 tabs 12/02/24 12/04/24 Rx tamsulosin 0.4 mg capsule 0.4 mg PO HS 12/04/24 12/04/24 History Patient History Medical History (Updated 12/07/24 @ 10:15 by Prashant Phan, PA-C) 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 no current issues. SAUL (obstructive sleep apnea) 2L of O2 via NC HS; does not tolerate CPAP Hx of supraventricular tachycardia pt unaware; follows with Dr Wanda REEVES (hard of hearing) wears bilateral hearing aides Hx: recurrent pneumonia 2019+2020+ most recently hospitalized at [facility] in 2021. no problems since. Osteoarthritis Hypertension Chronic CHF Dr Muñoz Chronic obstructive pulmonary disease controlled with daily inhaler-- average use 4-5 times monthly - Dr Trimble Hx of tinnitus History of anemia Hx of pulmonary hypertension (2019) Normal RVSP on 10/2022 ECHO Mild pulm HTN on 2019 RHC- PA pressure: 37/19 with a mean of 25 mmHg. Chronic neck pain Chronic back pain Urinary frequency nocturia Diabetes mellitus type 2, uncontrolled Diet Polyneuropathy feet bilateral Hyperlipemia reports he is not currently taking statin medication daily. GERD (gastroesophageal reflux disease) controlled, stable per pt NSTEMI (non-ST elevated myocardial infarction) (~2019) NSTEMI 2019- cardiac cath showed no CAD. Dr Muñoz Surgical History Status post right knee replacement (~05/2024) R TKA 07/13/24: MAC, SAB (L4-5 x 1 attempt), PNB (x 1 attempt); no issues with anesthesia History of colostomy reversal (08/08/23) Laparoscopic Reversal Colostomy, extensive enterolysis - Bernard Rocha DO History of colon resection (04/29/23) Exploratory Laparotomy, Sigmoid colectomy with Diverting Colostomy, Takedown enterocolonic fistula with primary Repair(Not Applicable) - Bernard Rocha DO History of esophagogastroduodenoscopy (EGD) History of tonsillectomy H/O exploratory laparotomy (04/29/23) with colostomy creation - r/t diverticulitis. H/O vasectomy + Reversal History of colonoscopy History of tooth extraction History of cholecystectomy Hx of appendectomy S/P cervical spinal fusion C3-C6 -> ROM slightly limited with numbness down the right arm. Hx of arthroscopic knee surgery Bilateral H/O cardiac catheterization 07/2020 [facility]; 'no significant CAD'; follows with Family History Father Heart disease age 37 - "heart attack" Hypertension Brother Coronary heart disease Hypertension Aunt Breast cancer Mother Hypertension Thyroid disease Other Allergies Cancer Diabetes No family history of adverse response to anesthesia No significant family history Denies family history of Tuberculosis Ovarian cancer Prostate cancer Emphysema, unspecified Colorectal cancer Lung disease Asthma Social History Smoking Status: Current every day smoker Tobacco Type: Cigarettes Age Started Using Tobacco: 19; packs per day: 1; Cigarettes Per Day: 1/2 to 3/4 pack; Second Hand Exposure: No; Do You Dip or Chew Tobacco: No; Hx Alcohol Use: No Hx Substance Use: No Preferred Language: Emirati Communication Ability: Effective Visual Impairment: No Limitations Hearing Ability: Normal Real Estate Associate Required: No Beliefs That Will Affect Care: None marital status: Current Living Situation: Spouse Current Living Situation Comment: and son current occupational status: disabled Feels Safe at Home: Yes Safety Concerns: Feels Safe At This Time Childhood Exposure to Second-Hand Smoke: Yes Diet: low carbohydrate and other Diet Comment: no fiber caffeine: Yes Dental Care, Regularly: No Physical Activity Frequency: Does not Exercise Seatbelt Use: always Sunscreen Use: No Assistive Devices: Cane, Oxygen - at Night and Walker Review of System A 10 ooint ROS obtained. Pertinent positive as per HPI Physical Exam Physical Exam: NAD Supple neck No cervical spine TTP Non labored breathing, On 3 LNC Soft , not tender, not distended abdomen RLE without edema. No R knee TTP or effusion. LLE in dressed post OR, hemovac with bloody drainage AAO times 3 Cooperative, normal mood Results & Data Vital Signs (Past 12 Hours) Vital Signs Temp Pulse Pulse Resp BP Pulse Ox O2 Del Method 12/07/24 11:37 36.6 C 95 H 18 161/85 H 94 Room Air 12/07/24 11:01 108 H 17 98 Nasal Cannula 12/07/24 08:10 Room Air 12/07/24 07:44 36.6 C 97 H 16 148/79 H 93 Nasal Cannula 12/07/24 07:21 97 H 17 97 Nasal Cannula 12/07/24 03:02 36.4 C L 99 H 16 118/71 95 Nasal Cannula 12/07/24 02:16 98 H 18 97 Nasal Cannula O2 Flow Rate 12/07/24 11:37 12/07/24 11:01 3 12/07/24 08:10 12/07/24 07:44 2 12/07/24 07:21 2 12/07/24 03:02 2 12/07/24 02:16 2 Laboratory Results Laboratory Results - last 48 hr 12/04/24 12/05/24 12/05/24 23:21 01:28 16:27 WBC RBC Hgb Hct MCV MCH MCHC RDW Std Deviation RDW Coeff of Liliya Plt Count MPV Immature Gran % (Auto) Neut % (Auto) Lymph % (Auto) Sumner % (Auto) Eos % (Auto) Baso % (Auto) Neut # (Auto) Lymph # (Auto) Sumner # (Auto) Eos # (Auto) Baso # (Auto) Immature Gran # (Auto) Hypersegmented Neuts ESR Sodium Potassium Chloride Carbon Dioxide Anion Gap BUN Creatinine Est Cr Clr Drug Dosing eGFR BUN/Creatinine Ratio Glucose POC Glucose 152 H Calcium Total Bilirubin AST ALT Alkaline Phosphatase C-Reactive Protein Total Protein Albumin Globulin Albumin/Globulin Ratio Synovial Crystals Staphylococcus sp PCR DETECTED A Staph aureus (PCR) DETECTED A mecA/C & MREJ Resist Gene MRSA Not Detected Bld Cult ID Panel PCR See PCR Comment 12/05/24 12/05/24 12/06/24 20:49 23:26 03:04 WBC RBC Hgb Hct MCV MCH MCHC RDW Std Deviation RDW Coeff of Liliya Plt Count MPV Immature Gran % (Auto) Neut % (Auto) Lymph % (Auto) Sumner % (Auto) Eos % (Auto) Baso % (Auto) Neut # (Auto) Lymph # (Auto) Sumner # (Auto) Eos # (Auto) Baso # (Auto) Immature Gran # (Auto) Hypersegmented Neuts ESR Sodium Potassium Chloride Carbon Dioxide Anion Gap BUN Creatinine Est Cr Clr Drug Dosing eGFR BUN/Creatinine Ratio Glucose POC Glucose 161 H 186 H 202 H Calcium Total Bilirubin AST ALT Alkaline Phosphatase C-Reactive Protein Total Protein Albumin Globulin Albumin/Globulin Ratio Synovial Crystals Staphylococcus sp PCR Staph aureus (PCR) mecA/C & MREJ Resist Gene Bld Cult ID Panel PCR 12/06/24 12/06/24 12/06/24 06:01 06:34 12:17 WBC 18.38 H RBC 3.19 L Hgb 10.0 L Hct 30.6 L MCV 95.9 MCH 31.3 MCHC 32.7 RDW Std Deviation 53.1 H RDW Coeff of Liliya 15.2 H Plt Count 286 MPV 9.6 Immature Gran % (Auto) 0.7 Neut % (Auto) 90.9 Lymph % (Auto) 4.6 Sumner % (Auto) 3.7 Eos % (Auto) 0.0 Baso % (Auto) 0.1 Neut # (Auto) 16.72 H Lymph # (Auto) 0.84 L Sumner # (Auto) 0.68 H Eos # (Auto) 0.00 Baso # (Auto) 0.02 Immature Gran # (Auto) 0.12 Hypersegmented Neuts 1+ ESR 66 H Sodium 137 Potassium 4.0 Chloride 105 Carbon Dioxide 25 Anion Gap 7 BUN 22 Creatinine 0.55 L Est Cr Clr Drug Dosing 149.7 eGFR 112.75 BUN/Creatinine Ratio 40.0 H Glucose 153 H POC Glucose 159 H 172 H Calcium 8.8 Total Bilirubin 0.3 AST 16 ALT 11 Alkaline Phosphatase 77 C-Reactive Protein 20.24 H Total Protein 6.2 Albumin 3.4 Globulin 2.8 Albumin/Globulin Ratio 1.2 Synovial Crystals Staphylococcus sp PCR Staph aureus (PCR) mecA/C & MREJ Resist Gene Bld Cult ID Panel PCR 12/06/24 12/06/24 12/07/24 16:53 20:23 06:28 WBC 15.62 H RBC 2.97 L Hgb 9.5 L Hct 28.9 L MCV 97.3 MCH 32.0 MCHC 32.9 RDW Std Deviation 54.3 H RDW Coeff of Liliya 15.0 H Plt Count 327 MPV 9.8 Immature Gran % (Auto) 0.8 Neut % (Auto) 89.9 Lymph % (Auto) 6.5 Sumner % (Auto) 2.6 Eos % (Auto) 0.1 Baso % (Auto) 0.1 Neut # (Auto) 14.06 H Lymph # (Auto) 1.02 L Sumner # (Auto) 0.40 Eos # (Auto) 0.01 Baso # (Auto) 0.01 Immature Gran # (Auto) 0.12 Hypersegmented Neuts ESR Sodium 139 Potassium 4.1 Chloride 104 Carbon Dioxide 28 Anion Gap 7 BUN 29 H Creatinine 0.69 Est Cr Clr Drug Dosing 119.3 eGFR 105.29 BUN/Creatinine Ratio 42.0 H Glucose 150 H POC Glucose 152 H 181 H Calcium 8.4 L Total Bilirubin 0.3 AST 27 ALT 31 Alkaline Phosphatase 68 C-Reactive Protein Total Protein 5.9 L Albumin 3.1 L Globulin 2.8 Albumin/Globulin Ratio 1.1 Synovial Crystals Staphylococcus sp PCR Staph aureus (PCR) mecA/C & MREJ Resist Gene Bld Cult ID Panel PCR 12/07/24 12/07/24 07:41 11:35 WBC RBC Hgb Hct MCV MCH MCHC RDW Std Deviation RDW Coeff of Liliya Plt Count MPV Immature Gran % (Auto) Neut % (Auto) Lymph % (Auto) Sumner % (Auto) Eos % (Auto) Baso % (Auto) Neut # (Auto) Lymph # (Auto) Sumner # (Auto) Eos # (Auto) Baso # (Auto) Immature Gran # (Auto) Hypersegmented Neuts ESR Sodium Potassium Chloride Carbon Dioxide Anion Gap BUN Creatinine Est Cr Clr Drug Dosing eGFR BUN/Creatinine Ratio Glucose POC Glucose 163 H 198 H Calcium Total Bilirubin AST ALT Alkaline Phosphatase C-Reactive Protein Total Protein Albumin Globulin Albumin/Globulin Ratio Synovial Crystals Staphylococcus sp PCR Staph aureus (PCR) mecA/C & MREJ Resist Gene Bld Cult ID Panel PCR Diagnostic Findings Microbiology 12/05/24 01:28 Knee,Left Gram Stain - Final 12/05/24 01:28 Knee,Left Aerobic and Anaerobic Culture - Preliminary Staphylococcus aureus 12/06/24 15:00 Knee,Left Gram Stain - Final 12/06/24 15:00 Knee,Left Aerobic and Anaerobic Culture - Preliminary Staphylococcus aureus 12/04/24 23:21 Blood Aerobic Blood Culture - Final Staphylococcus aureus 12/04/24 23:21 Blood Anaerobic Blood Culture - Final Staphylococcus aureus 12/04/24 23:35 Blood Aerobic Blood Culture - Preliminary No growth in Aerobic bottle after 48 hours. 12/04/24 23:35 Blood Anaerobic Blood Culture - Preliminary Staphylococcus aureus 12/05/24 Unknown Knee,Left Gram Stain - Final 12/05/24 Unknown Knee,Left Aerobic and Anaerobic Culture - Preliminary Staphylococcus aureus Chest X-Ray 12/04/24 20:14 Exam(s): XR CXR 1 VIEW EXAM: XR Chest, 1 View CLINICAL HISTORY: cp. TECHNIQUE: Frontal view of the chest. COMPARISON: Portable chest single view May 10, 2024 FINDINGS: Lungs: Unremarkable. No consolidation. The pulmonary vasculature demonstrates no significant radiographic abnormality. Pleural space: Unremarkable. No pneumothorax. No large pleural effusion. Heart: Unremarkable. No cardiomegaly. Mediastinum: The mediastinal contours are stable and unremarkable. The trachea is midline. Bones/joints: Posterior fusion throughout the cervical spine incidentally noted. No acute fracture. IMPRESSION: No acute cardiopulmonary process or significant alteration from the prior examination. Electronically signed by: Bernard Chavez MD 12/04/24 22:09 PM Knee X-Ray 12/04/24 20:15 Exam(s): XR LEFT KNEE, 3 views EXAM: XR Left Knee, 3 Views CLINICAL HISTORY: Knee trauma. TECHNIQUE: Three views of the left knee. COMPARISON: Radiographic evaluation of both knees 02/25/2024 FINDINGS: Bones/joints: There has been interval placement of a left total knee arthroplasty. No acute osseous traumatic injury. No periprosthetic lucency or fracture noted. No dislocation. Soft tissues: Soft tissue fullness suggested overlying the patella. No radiopaque foreign body or subcutaneous emphysema. IMPRESSION: Soft tissue fullness suggested overlying the patella. No radiopaque foreign body or subcutaneous emphysema. Left total knee arthroplasty. No acute osseous abnormality. Electronically signed by: Bernard Chavez MD 12/04/24 22:11 PM Medications Administered Home Medications Medication Instructions Recorded Confirmed Last Taken blood sugar diagnostic (TheBankCloudTouch #100 ea 02/15/21 09/17/24 Unknown Verio test strips) lancets 33 gauge (TheBankCloudTouch Delica #100 ea 02/15/21 09/17/24 Unknown Lancets) epinephrine 0.3 mg/0.3 mL 0.3 mg IM DIRECTED PRN Allergic 02/21/22 12/04/24 Unknown injection, auto-injector (EpiPen) Reaction ipratropium 0.5 mg-albuterol 3 mg 3 ml inhalation QID PRN Shortness 10/22/22 12/04/24 2 Days Ago (2.5 mg base)/3 mL nebulization Of Breath #180 mL ~06/10/24 soln Oxygen Home #1 ea 07/17/23 09/17/24 Unknown pantoprazole 40 mg tablet,delayed 40 mg PO BID PRN Acid Reflux 07/30/23 12/04/24 10 Days Ago release (Protonix) ~06/02/24 albuterol sulfate 90 mcg/actuation 2 puff inhalation Q4H PRN Wheezing 11/28/23 12/04/24 12/04/24 aerosol inhaler #8.5 grams Walking Cane #1 ea 12/06/23 09/17/24 Unknown atorvastatin 80 mg tablet (Lipitor) 80 mg PO HS #90 tabs 05/11/24 12/04/24 12/03/24 duloxetine 60 mg capsule,delayed 60 mg PO QAM 10/23/24 12/04/24 12/03/24 release (Cymbalta) gabapentin 300 mg capsule 900 mg PO TID 10/23/24 12/04/24 12/04/24 (Neurontin) olmesartan 5 mg tablet (Benicar) 5 mg PO QAM 10/23/24 12/04/24 12/03/24 fluticasone fur. 100 mcg-umeclid 1 inh inhalation QAM #60 ea 10/29/24 12/04/24 12/04/24 62.5 mcg-vilant 25 mcg inhalat.powder (Trelegy Ellipta) aspirin 81 mg tablet,delayed 81 mg PO BID 42 days #84 tabs 11/06/24 12/04/24 12/04/24 release ergocalciferol (vitamin D2) 1,250 50,000 unit PO WEEKLY 90 days #12 11/10/24 12/04/24 12/03/24 mcg (50,000 unit) capsule caps morphine 15 mg tablet,extended 15 mg PO Q12H #60 tabs 11/13/24 12/04/24 12/04/24 release oxycodone 5 mg tablet 5 mg PO Q6H PRN pain #30 tabs 11/30/24 12/04/24 12/03/24 oxycodone 15 mg tablet 15 mg PO Q6H #90 tabs 12/02/24 12/04/24 12/03/24 tamsulosin 0.4 mg capsule 0.4 mg PO HS 12/04/24 12/04/24 12/03/24 Active Medications Generic Name Dose Route Start Last Admin Trade Name Freq PRN Reason Stop Dose Admin Acetaminophen 1,000 mg 12/06/24 22:59 12/07/24 00:00 Acetaminophen 500 Mg Tab PO 01/05/25 22:58 1,000 mg Q8H PRN Administration Pain or Fever Albuterol 3 ml 12/05/24 03:00 12/07/24 11:01 Albut/Ipratrop 3mg/0.5mg Neb 3 Ml Vial NEB 01/04/25 02:59 3 ml Q4R ERIN Administration Protocol Aspirin 81 mg 12/05/24 09:00 12/07/24 08:18 Aspirin 81 Mg Ectab PO 01/04/25 08:59 81 mg BID ERIN Administration Atorvastatin Calcium 80 mg 12/05/24 21:00 12/06/24 20:39 Atorvastatin 40 Mg Tab PO 01/04/25 20:59 80 mg HS ERIN Administration Duloxetine HCl 60 mg 12/05/24 09:00 12/07/24 08:17 Duloxetine Hcl 60 Mg Cap PO 01/04/25 08:59 60 mg QAM ERIN Administration Fluticasone Furoate 1 puffs 12/05/24 09:00 12/07/24 08:19 Fluticasone Furoate 100mcg 14 Puffs/Inhaler INH 01/04/25 08:59 1 puffs DAILY ERIN Administration Gabapentin 900 mg 12/05/24 09:00 12/07/24 13:18 Gabapentin 300 Mg Cap PO 01/04/25 08:59 900 mg TID ERIN Administration Methylprednisolone 40 mg/ 0.64 mls @ 1.5 mls/min 12/05/24 09:00 12/07/24 08:16 Syringe IV 01/04/25 08:59 1.5 mls/min Q12H ERIN Administration Cefazolin Sodium 2,000 mg in 15 mls @ 3.75 mls/min 12/06/24 14:30 12/07/24 13:23 Ancef 2000mg IV 01/17/25 14:29 3.75 mls/min Q8 ERIN Administration Protocol Insulin Aspart 0 units 12/06/24 16:30 12/07/24 12:25 Insulin Aspart Per Unit Charge SC 01/05/25 06:29 9 units ACHS ERIN Administration Insulin Glargine 0 units 12/06/24 21:00 12/07/24 08:29 Lantus Per Unit Charge SC 01/05/25 20:59 8 units BID ERIN Administration Protocol Losartan Potassium 12.5 mg 12/05/24 09:00 12/07/24 08:18 Losartan Potassium 25 Mg Tab PO 01/04/25 08:59 12.5 mg QAM ERIN Administration Melatonin 3 mg 12/05/24 02:07 12/06/24 20:39 Melatonin 3 Mg Tab PO 01/04/25 02:06 3 mg HS PRN Administration Insomnia Morphine Sulfate 4 mg 12/05/24 01:20 12/07/24 12:24 Morphine Sulfate 4 Mg/Ml 1 Ml Carp\\Vial IV 12/19/24 01:19 4 mg Q3H PRN Administration Pain (6,7,8,9,10) Oseltamivir Phosphate 75 mg 12/05/24 09:00 12/07/24 08:16 Oseltamivir Phosphate 75 Mg Cap PO 12/09/24 09:01 75 mg BID ERIN Administration Oxycodone HCl 5 mg 12/06/24 22:36 12/07/24 13:16 Oxycodone Hcl Ir 5 Mg Tab (Immediate Release) PO 12/20/24 22:35 5 mg Q4H PRN Administration Pain Pantoprazole Sodium 40 mg 12/05/24 02:07 12/05/24 09:20 Pantoprazole 40 Mg Tab PO 01/04/25 02:06 40 mg BID PRN Administration Acid Reflux Tamsulosin HCl 0.4 mg 12/05/24 21:00 12/06/24 20:39 Tamsulosin Hcl 0.4 Mg Cap PO 01/04/25 20:59 0.4 mg HS ERIN Administration Umeclidinium/Vilanterol 1 puffs 12/05/24 09:00 12/07/24 08:19 Umeclidinium/Vilanterol 62.5/25mcg 7 Puffs/Inhaler INH 01/04/25 08:59 1 puffs DAILY ERIN Administration (3) Leukocytosis Leukocytosis type: unspecified Qualified Code(s): D72.829 - Elevated white blood cell count, unspecified
--- NOTE | 2024-12-07 13:21 | XCELERA ---
[id number] \\[email or web address]\[id number]
--- NOTE | 2024-12-07 14:44 | Pharmacy Report ---
Pharmacy Glycemic Short Note 2 - Date of Service December 07, 2024 - Glycemic Short BSG Results (Last 24 hours): 12/06/24 12/06/24 12/07/24 16:53 20:23 06:28 Glucose 150 H POC Glucose 152 H 181 H 12/07/24 12/07/24 07:41 11:35 Glucose POC Glucose 163 H 198 H OUTPATIENT ANTIDIABETIC REGIMEN: * metformin * A1c = 6% (09/16/24) ASSESSMENT: 12/07 * Patient received a total of 43 units of insulin yesterday (23 units were basal and 20 units were bolus). * Fasting BSG was 163mg/dL this morning. A Lantus scale (0,8, or 15 units depending on BSG) BID was started last evening. This will be continued today as he continues on methylprednisolone iv q 12 hours. * Bolus insulin parameters were tightened to a weight based dosing with a stress of 3 yesterday and will be continued today without change. 12/05 * Meet is a 59 yo T2DM who presented with SOB and cough for three days. In addition to this patient had recent fall on ice and since has developed erythema and edema of left leg. He is s/p L TKA on 11/06/24. He has been evulated by orthopedics with plans to undergo L knee I&D on 12/06/24. * Patient has been started on antibiotics and methylprednisolone 40 mg IV q12h. Anticipate steroid induced hyperglycemia. * Will initiate weight based SQ bolus + basal insulin based on weight/stress 2. PLAN FOR INPATIENT GLYCEMIC CONTROL: * Hold outpatient oral diabetes medications * Basal insulin * Lantus scale BID (if BSG < 140 hold, if BSG 140-180 give 8 units, if BSG > 180 give 15 units) * Bolus insulin * NovoLog per scale ACHS or Q6hrs while NPO * Goal Range: Low 110 mg/dL - High 140 mg/dL * Correction Factor: 20 mg/dL/unit * Nutritional / Prandial insulin per carb ratio of 1 unit per 7 grams CHO consumed
--- NOTE | 2024-12-07 18:56 | Billing Data ---
Date of Service December 07, 2024 Coding Level of Care Code 16725 SUB INP/OBS CARE MIN
[2024-12-08 06:34] LABS: Basophils # (auto) 0.01 K/uL (0.00-0.20); Basophils % (auto) 0.1 %; Hematocrit (blood only) 30.5 % (42.0-52.0); Hemoglobin 10.1 g/dl (14.0-18.0); Immature Granulocytes # (auto) 0.13 K/uL (0.01-0.20); Immature Granulocytes % (auto) 1.2 %; Lymphocytes % (auto) 10.1 %; Mean Corpuscular Hgb Conc 33.1 g/dL (32.0-36.0); Mean Corpuscular Volume 96.5 fL (80.0-100.0); Mean Platelet Volume 9.5 fL (9.4-12.4); Monocytes # (auto) 0.35 K/uL (0.11-0.59); Monocytes % (auto) 3.2 %; Neutrophils % (auto) 85.4 %; Platelet Count 321 K/uL (130-400); RDW Coefficient of Variation 14.8 % (11.5-14.5); RDW Standard Deviation 52.7 fL (36.4-46.3); Red Blood Count 3.16 M/uL (4.70-6.10); White Blood Count 10.89 K/ul (4.8-10.8)
[2024-12-08 06:48] LABS: BUN Creatinine Ratio 35.3 (10-20); Calcium 8.3 mg/dl (8.6-10.3); Creatinine Clr Calc Pharmacy 121.1 ml/min; Potassium 4.1 mmol/L (3.5-5.1)
--- NOTE | 2024-12-08 07:40 | Orthopedic Progress Note ---
Date of Service December 08, 2024 Assessment & Plan (1) Infection of total left knee replacement: Overall he is doing fairly well. Is not having too much pain in the knee. The cultures grew back MSSA. He has been seen by infectious disease. He is currently on Ancef every 8 hours. I also started him on rifampin 300 mg twice a day and I am interested in infectious disease thoughts on this moving forward. I have had good success with it with periprosthetic joint infections. He is on aspirin for DVT prophylaxis. He can be weightbearing as tolerated. Preliminary blood cultures are negative but we are waiting for final blood cultures before PICC line can be placed. I plan to change her dressing and remove the drains tomorrow. Delbert Dsouza was seen and examined at bedside this morning. Overall he is doing okay. He is not having as much pain in the left knee. Is been up and ambulated on it. He feels much better than it did when he first came to the hospital. He has no complaints.. Review of Systems All systems reviewed & are unremarkable except as noted in HPI & below. Physical Exam On physical exam of the left knee, the dressing is clean and dry. The drains are still to suction.. Results & Data Results & Data Laboratory Results . Diagnostic Findings . PG Care Time/CCT Total # of Minutes Spent Total Time Spent with Patient: Total time spent is greater than 50% in coordination of care (as documented) at patient's floor/unit and/or counseling patient: Coding Level of Care Code 03523 Post Operative Follow-Up Diagnoses Infection of total left knee replacement T84.54XA
--- NOTE | 2024-12-08 07:41 | Hospitalist Progress Note ---
Date of Service December 08, 2024 Assessment & Plan (1) Acute postoperative pain of knee: (2) Leukocytosis: (3) Flu: (4) Left knee injury: (5) Influenza A: (6) Status post left knee replacement: (7) Dyslipidemia: Plan Meet Lindsay is a 59 Y O Male with PMH of CAD, COPD, Pulmonary Hypertension , CHF, Dyslipidemia, DM II, Hypertension, Obstructive Sleep Apnea and Left total Knee Arthroplasty presented to ER with upper respiratory tract symptoms with intermittent fever. He fell on ice into his left knee and had swelling following this.Denies trauma to other body parts and loss of consciousness. (1)Acute exacerbation of COPD secondary to Influenza A -Symptoms of SOB, nonproductive cough, and fever x 3 days. Symptoms are better than last few days. - Recent exposure to 2 family member - BioFire positive influenza A - Procalcitonin: 4.21; CXR without acute findings. - WBC: 18.38> 15.62 - 2L O2 via NC at bedtime his baseline which she has increased since being sick to 3L, none with activity or during daytime - Currently O2 Sat 95 on 2L/min. - Under Tamiflu 75 mg Po BID - DuoNeb 3ml Neb Q4Hr; Arnuity Ellipta 1 puff inhalation daily;Anoro Ellipta 1 puff inhalation daily -IV Solumedrol 40 mg BID (2)Staphylococcus Aureus Bacteremia -Blood culture show Gram Positive cocci in clusters . Staph aureus sensitive to Methicillin. - Left Knee culture is positive for Staphylococcus Aureus -Nasal MRSA: Negative -Stop Vancomycin and Cefepime -Switch to Cefazolin. Continue Cefazolin IV for 6wks and oral Rifampin once the infection is clear -Repeat Blood Culture Today. Reports Pending -WBC : 18.38>15.62 - Echocardiogram today to rule out endocarditis: Echo revealed No valvular Vegetations identified,no significant valvular pathology Normal left Ventricular Systolic Function, No regional wall motion abnormalities, mild concentric left ventricular Hypertrophy, Left Ventricular Ejection Fraction of 60 to 65%. -Infectious Disease Consultation. As per ID consultation Continue cefazolin IV for 6 wks and Oral Rifampin once infection is clear. Donot place PICC until BC clear for 48-72 hours. -Hopefully discharge back home tomorrow. Will establish PICC and Home health Nursing. (3)Left total knee Irrigation and Debridement with Poly exchange for peripr osthetic knee infection - Procedure yesterday at 14:00. Acco to ortho note, there was a large amount of purulent discharge that came out of the wound. The knee was grossly infected. - Pain and swelling on left knee after mechanical fall -Recent arthroplasty on 11/07/2024 secondary to advanced arthritis of left knee and failure of conservative treatment. Following with Dr. Fernandez -Under Multiple medication for pain management at home included Gabapentin, Duloxetine, Oxycodone and Morphine -Left Knee Xray(12/06): suggests soft tissue fullness overlying the patella, no acute findings or fractures - Pain regimen as ordered- morphine; Oxycodone and Tylenol; Continue home Gabapentin and Duloxetine (3)Hyponatremia Resolved - On presentation Na : 133 -Repeat: 140 (4)T2DM -H/o DMT2, home regimen metformin - Most recent A1C (05/06)- 6.3% - SSI with target BSG range 110-140mg/dL, - BSG ACHS - Pharm glycemic management consult placed, appreciate assistance-adjust regimen as needed (5) Tobacco consumer -Patient consumes around 1 pack/ day starting from age 19 (6) Hypertension -Olmesartan 5mg PO at home - Stopped Metoprolol since December 2023 -BP elevated to the range of 180/90. May be due to pain -Losartan increased from 12.5 to 25 Chronic Condition #GERD/gastric ulcer/duodenitis- Pantoprazole #SAUL- Does not tolerate cpap; 2L O2 via NC at baseline #Anemia- Prior B12 and folate deficiency, receives monthly B12 injections and takes oral B12- H/H 12.2/37.7 at admission; repeat CBC am, Vitamin B12: Normal; Folate: 5.31 #HLD- Atorvastatin #BPH- Tamsulosin Code: Full Code VTE prophylaxis: TEDs, SCD and Aspirin 81mg BID Dispo: Med/Surg Admission and Anticipated Discharge Date Admission Date: December 05, 2024 Supervising Physician Co-Signing Physician Notes I personally examined the patient and verified all ralph points of history and exam, discussed case, and agree with decision making with Dr Jhaveri knee pain is only real problem vitals noted nad heent nc at mmm breathing unlabored no accessory muscles good effort skin no rashes no pallor or icterus IMPRESSION & PLAN sepsis POA due to staph bacteremia and influenza Influenza A hyponatremia left knee injury/joint infection and MSSA bacteremia Left Total Knee Irrigation and Debridement with poly exchange Tamiflu and Solu-Medrol for influenza A with underlying history of COPD; supplemental oxygen as needed repeat blood cultures/TTE reassuring for endocarditis Continue Ancef; appreciate ID input doing better - discharge planning // prolonged abx - but appearing that he'll be able to do so from home (if cx remain negative then hopefully PICC tomorrow and possibly home late tomorrow) otherwise as above Subjective Meet Lindsay is a 59 Y O Male with PMH of CAD, COPD, Pulmonary Hypertension , CHF, Dyslipidemia, DM II, Hypertension, Obstructive Sleep Apnea and Left total Knee Arthroplasty presented to ER with upper respiratory tract symptoms with intermittent fever. He fell on ice into his left knee and had swelling following this. Denies trauma to other body parts and loss of consciousness. Overnight events: Patient mentioned he didn't sleep well. He usually sleeps 2 hour every night. Ongoing symptoms: He mentioned his knee pain is getting better. He was able to move for a while in the room.Upper respiratory infections are better as compared in the last few days . Denies fever, sweats , headache and abdominal pain.Has chronic pain in the back. New concerns: No any Review of Systems Review of Systems: As per HPI Physical Exam Constitutional: WD/WN, vitals as above well developed; no acute distress Eyes: PERRL, conjunctivae normal, anicteric sclerae ENMT: external ear and nose normal, oropharynx normal Ears: no hearing impairment Neck: trachea midline, no thyromegaly trachea midline Respiratory: normal respiratory effort, lungs clear to auscultation normal respiratory effort and + respiratory distress; no labored breathing and no retractions Auscultation: lungs clear to auscultation bilaterally and + wheezes ( Right lung) Cardiovascular: RRR, no murmur, no edema Rate/Rhythm: regular rate and regular rhythm Chest (Breasts): normal inspection/palpation of breasts Chest: normal inspection of chest Musculoskeletal: Knee: + effusion, + surgical incision (well healing, erythema around surgical incision) and + joint line tenderness Results & Data Results & Data Vital Signs (Past 12 Hours) Vital Signs Temp Pulse Resp BP BP Pulse Ox O2 Del Method 12/08/24 07:02 36.5 C 87 18 163/95 H 94 Nasal Cannula 02/25/25 03:51 93 H 18 97 Nasal Cannula 12/07/24 22:52 96 H 18 90 Room Air 12/07/24 22:01 37 C 95 H 16 160/82 H 93 Room Air 12/07/24 21:30 Room Air 12/07/24 20:24 15 91 Nasal Cannula O2 Flow Rate 12/08/24 07:02 2.0 12/08/24 03:51 2 12/07/24 22:52 12/07/24 22:01 12/07/24 21:30 12/07/24 20:24 3 (2) Leukocytosis Leukocytosis type: unspecified Qualified Code(s): D72.829 - Elevated white blood cell count, unspecified
--- NOTE | 2024-12-08 10:51 | Infectious Disease Progress Nt ---
Date of Service December 08, 2024 Assessment & Plan (1) Infection of total left knee replacement: (2) On home oxygen therapy: (3) Leukocytosis: (4) Influenza A: Plan This is a 59-year-old man with a past medical history of chronic pain syndrome, chronic hypoxemic respiratory failure on2L nasal cannula at night only, SAUL, CHF, COPD, DM 2, pulmonary hypertension, right TKA (05/2024), left TKA 11/06/2024 who presents with cough and shortness of breath for 3 days associated with fevers and weakness. He also reports left knee pain after he slipped and fell on ice. His left knee and leg was swollen, tender and erythematous post fall. Denies incision dehiscence or drainage. Denies nausea, vomiting, abdominal pain, rash, numbness or tingling of the lower extremities. On admission T36.5, pulse 123, O2 sats 95% on room air. Labs WBC 18.06, BUN 19, creatinine 1.12, ESR 66, CRP 20.24, procalcitonin 4.21. Influenza A+. COVID and RSV negative. MRSA nasal screen negative. XRAY LLE showed knee soft tissue fullness overlying the patella.. Chest x-ray with no acute cardiopulmonary process. He was evaluated by orthopedics for large left knee effusion and underwent aspiration of the prepatellar bursa as well as knee joint fluid with greater than 100 K synovial WBC (86% polys). Joint fluid culture and periprosthetic culture positive for MSSA. Blood cultures positive for MSSA 3/ bottles. He underwent left total knee irrigation and debridement with poly exchange on 12/06/24. Intraoperative cultures obtained. So far growing Staph aureus. He is currently on cefazolin. Rifampin due to start tonight. Repeat blood cultures pending. He is on day 4 of oseltamivir. He has less cough and knee pain. ID consulted for antibiotic management. An echocardiogram is pending. Microbiology Blood culture 12/04 3/4 bottles positive for MSSA Left knee joint wound culture 12/05 MSSA Left knee periprosthetic bursa culture 12/05 MSSA Left knee OR culture 12/06 MSSA Blood culture 12/07 pending Antibiotics Cefepime 12/04 - 12/06 Vancomycin 12/04 - 12/06 Oseltamivir 12/04ongoing Cefazolin 12/06ongoing #High grade MSSA Bacteremia #MSSA Septic Left prosthetic knee joint infection #Leukocytosis, improving #Influenza A infection # Acute on chronic hypoxic respiratory failure. 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 TTE without valve vegatations or valvular abnormalities Would not start rifampin or place PICC line until blood cultures cleared fro 48-72hours. He has a right TKA and cervical spine hardware but no signs of infection at the sites on exam. Repeat BC 12/07 NGTD Recommendations Continue Cefazolin 2 g IVq 8 hours Hold rifampin 300 mg PO q12h for now and START once blood cultures are clear, as resistance can develop while still bacteremic with staph aureus Follow up repeat BCx 12/07 to ensure clearance Follow up OR cultures to finalization Complete 5 days of oseltamivir for influenza A infection DO NOT place picc until BC clear for 48-72 hours Anticipate 6 weeks IV abx ( Cefazolin)PLUS oral rifampin (to start once BC clear) for MSSA bacteremia with MSSA Left knee PJI followed by suppression( cefadroxil and rifampin) i/s/o retained L Knee hardware. Discussed with ortho. ID will continue to follow. Alisson Bird MD, MPH Infectious Disease [facility], [facility] Call [phone] with questions Admission and Anticipated Discharge Date Admission Date: December 05, 2024 Subjective Subsequent visit was provided via telemedicine using two-way real-time interactive telecommunication between the patient and the telemedicine provider. For the duration of the visit, the provider was performing the assessment from a different facility than the patient. This includesuse of bluetooth stethoscope forauscultationperformed by the telepresenter that the telemedicine provider can hear if described in the physical exam. [employer] contact information: Please call [facility] Call Center . (Phone Number For Physician Use Only) After establishing a telemedicine visit, patient was: Patient was verified with two unique identifiers Time Spent with Patient: Subsequent => 35 min Has ess L knee pain On 2L ( 3L ) NC TTE w/o valve vegatations/ abnormalities Repeat BC 12/07 NGTD Physical Exam Physical Exam: NAD Supple neck No cervical spine TTP Non labored breathing, On 2L LNC Soft , not tender, not distended abdomen RLE without edema. No R knee TTP or effusion. LLE in dressed post OR, hemovac drain with bloody drainage AAO times 3 Cooperative, normal mood Results & Data Vital Signs (Past 12 Hours) Vital Signs Temp Pulse Resp BP Pulse Ox O2 Del Method O2 Flow Rate 12/08/24 10:07 94 H 18 96 Nasal Cannula 3 12/08/24 07:41 94 H 18 96 Nasal Cannula 2 12/08/24 07:10 Nasal Cannula 2 12/08/24 07:02 36.5 C 87 18 163/95 H 94 Nasal Cannula 2.0 12/08/24 03:51 93 H 18 97 Nasal Cannula 2 12/07/24 22:52 96 H 18 90 Room Air Laboratory Results Short CBC 12/08/24 Range/Units 06:02 WBC 10.89 H (4.8-10.8) K/ul Hgb 10.1 L (14.0-18.0) g/dl Hct 30.5 L (42.0-52.0) % Plt Count 321 (130-400) K/uL BMP 12/08/24 06:02 Sodium 135 L Potassium 4.1 Chloride 99 Carbon Dioxide 29 BUN 24 H Creatinine 0.68 Glucose 153 H Calcium 8.3 L Diagnostic Findings Microbiology 12/06/24 15:00 Knee,Left Gram Stain - Final 12/06/24 15:00 Knee,Left Aerobic and Anaerobic Culture - Preliminary Staphylococcus aureus 12/05/24 Unknown Knee,Left Gram Stain - Final 12/05/24 Unknown Knee,Left Aerobic and Anaerobic Culture - Preliminary Staphylococcus aureus 12/05/24 01:28 Knee,Left Gram Stain - Final 12/05/24 01:28 Knee,Left Aerobic and Anaerobic Culture - Preliminary Staphylococcus aureus 12/07/24 06:28 Blood Aerobic Blood Culture - Preliminary No growth in Aerobic bottle after 24 hours. 12/07/24 06:28 Blood Anaerobic Blood Culture - Preliminary No growth in Anaerobic bottle after 24 hours. 12/07/24 06:28 Blood Aerobic Blood Culture - Preliminary No growth in Aerobic bottle after 24 hours. 12/07/24 06:28 Blood Anaerobic Blood Culture - Preliminary No growth in Anaerobic bottle after 24 hours. 12/04/24 23:21 Blood Aerobic Blood Culture - Final Staphylococcus aureus 12/04/24 23:21 Blood Anaerobic Blood Culture - Final Staphylococcus aureus 12/04/24 23:35 Blood Aerobic Blood Culture - Preliminary No growth in Aerobic bottle after 48 hours. 12/04/24 23:35 Blood Anaerobic Blood Culture - Preliminary Staphylococcus aureus Medications Administered Home Medications Medication Instructions Recorded Confirmed Last Taken blood sugar diagnostic (OneTouch #100 ea 02/15/21 09/17/24 Unknown Verio test strips) lancets 33 gauge (OneTouch Delica #100 ea 02/15/21 09/17/24 Unknown Lancets) epinephrine 0.3 mg/0.3 mL 0.3 mg IM DIRECTED PRN Allergic 02/21/22 12/04/24 Unknown injection, auto-injector (EpiPen) Reaction ipratropium 0.5 mg-albuterol 3 mg 3 ml inhalation QID PRN Shortness 10/22/22 12/04/24 2 Days Ago (2.5 mg base)/3 mL nebulization Of Breath #180 mL ~06/10/24 soln Oxygen Home #1 ea 07/17/23 09/17/24 Unknown pantoprazole 40 mg tablet,delayed 40 mg PO BID PRN Acid Reflux 07/30/23 12/04/24 10 Days Ago release (Protonix) ~06/02/24 albuterol sulfate 90 mcg/actuation 2 puff inhalation Q4H PRN Wheezing 11/28/23 12/04/24 12/04/24 aerosol inhaler #8.5 grams Walking Cane #1 ea 12/06/23 09/17/24 Unknown atorvastatin 80 mg tablet (Lipitor) 80 mg PO HS #90 tabs 05/11/24 12/04/24 12/03/24 duloxetine 60 mg capsule,delayed 60 mg PO QAM 10/23/24 12/04/24 12/03/24 release (Cymbalta) gabapentin 300 mg capsule 900 mg PO TID 10/23/24 12/04/24 12/04/24 (Neurontin) olmesartan 5 mg tablet (Benicar) 5 mg PO QAM 10/23/24 12/04/24 12/03/24 fluticasone fur. 100 mcg-umeclid 1 inh inhalation QAM #60 ea 10/29/24 12/04/24 12/04/24 62.5 mcg-vilant 25 mcg inhalat.powder (Trelegy Ellipta) aspirin 81 mg tablet,delayed 81 mg PO BID 42 days #84 tabs 11/06/24 12/04/24 12/04/24 release ergocalciferol (vitamin D2) 1,250 50,000 unit PO WEEKLY 90 days #12 11/10/24 12/04/24 12/03/24 mcg (50,000 unit) capsule caps morphine 15 mg tablet,extended 15 mg PO Q12H #60 tabs 11/13/24 12/04/24 12/04/24 release oxycodone 5 mg tablet 5 mg PO Q6H PRN pain #30 tabs 11/30/24 12/04/24 12/03/24 oxycodone 15 mg tablet 15 mg PO Q6H #90 tabs 12/02/24 12/04/24 12/03/24 tamsulosin 0.4 mg capsule 0.4 mg PO HS 12/04/24 12/04/24 12/03/24 Active Medications Generic Name Dose Route Start Last Admin Trade Name Freq PRN Reason Stop Dose Admin Acetaminophen 1,000 mg 12/06/24 22:59 12/07/24 16:45 Acetaminophen 500 Mg Tab PO 01/05/25 22:58 1,000 mg Q8H PRN Administration Pain or Fever Albuterol 3 ml 12/05/24 03:00 12/08/24 10:07 Albut/Ipratrop 3mg/0.5mg Neb 3 Ml Vial NEB 01/04/25 02:59 3 ml Q4R ERIN Administration Protocol Aspirin 81 mg 12/05/24 09:00 12/08/24 08:32 Aspirin 81 Mg Ectab PO 01/04/25 08:59 81 mg BID ERIN Administration Atorvastatin Calcium 80 mg 12/05/24 21:00 12/07/24 21:35 Atorvastatin 40 Mg Tab PO 01/04/25 20:59 80 mg HS ERIN Administration Duloxetine HCl 60 mg 12/05/24 09:00 12/08/24 08:33 Duloxetine Hcl 60 Mg Cap PO 01/04/25 08:59 60 mg QAM ERIN Administration Fluticasone Furoate 1 puffs 12/05/24 09:00 12/08/24 08:31 Fluticasone Furoate 100mcg 14 Puffs/Inhaler INH 01/04/25 08:59 1 puffs DAILY ERIN Administration Gabapentin 900 mg 12/05/24 09:00 12/08/24 08:33 Gabapentin 300 Mg Cap PO 01/04/25 08:59 900 mg TID ERIN Administration Methylprednisolone 40 mg/ 0.64 mls @ 1.5 mls/min 12/05/24 09:00 12/08/24 08:31 Syringe IV 01/04/25 08:59 1.5 mls/min Q12H ERIN Administration Cefazolin Sodium 2,000 mg in 15 mls @ 3.75 mls/min 12/06/24 14:30 12/08/24 05:57 Ancef 2000mg IV 01/17/25 14:29 3.75 mls/min Q8 ERIN Administration Protocol Insulin Aspart 0 units 12/06/24 16:30 12/08/24 12:07 Insulin Aspart Per Unit Charge SC 01/05/25 06:29 10 units ACHS ERIN Administration Insulin Glargine 0 units 12/06/24 21:00 12/08/24 08:41 Lantus Per Unit Charge SC 01/05/25 20:59 8 units BID ERIN Administration Protocol Losartan Potassium 12.5 mg 12/05/24 09:00 12/08/24 08:31 Losartan Potassium 25 Mg Tab PO 01/04/25 08:59 12.5 mg QAM ERIN Administration Melatonin 3 mg 12/05/24 02:07 12/06/24 20:39 Melatonin 3 Mg Tab PO 01/04/25 02:06 3 mg HS PRN Administration Insomnia Morphine Sulfate 4 mg 12/05/24 01:20 12/08/24 12:04 Morphine Sulfate 4 Mg/Ml 1 Ml Carp\Vial IV 12/19/24 01:19 4 mg Q3H PRN Administration Pain (6,7,8,9,10) Oseltamivir Phosphate 75 mg 12/05/24 09:00 12/08/24 08:32 Oseltamivir Phosphate 75 Mg Cap PO 12/09/24 09:01 75 mg BID ERIN Administration Oxycodone HCl 5 mg 12/06/24 22:36 12/08/24 10:24 Oxycodone Hcl Ir 5 Mg Tab (Immediate Release) PO 12/20/24 22:35 5 mg Q4H PRN Administration Pain Pantoprazole Sodium 40 mg 12/05/24 02:07 12/05/24 09:20 Pantoprazole 40 Mg Tab PO 01/04/25 02:06 40 mg BID PRN Administration Acid Reflux Tamsulosin HCl 0.4 mg 12/05/24 21:00 12/07/24 21:35 Tamsulosin Hcl 0.4 Mg Cap PO 01/04/25 20:59 0.4 mg HS ERIN Administration Umeclidinium/Vilanterol 1 puffs 12/05/24 09:00 12/08/24 08:31 Umeclidinium/Vilanterol 62.5/25mcg 7 Puffs/Inhaler INH 01/04/25 08:59 1 puffs DAILY ERIN Administration (3) Leukocytosis Leukocytosis type: unspecified Qualified Code(s): D72.829 - Elevated white blood cell count, unspecified
--- NOTE | 2024-12-08 17:50 | Billing Data ---
Date of Service December 08, 2024 Coding Level of Care Code 60945 SUB INP/OBS CARE MIN
[2024-12-08] MEDS: ceFAZolin 2000MG 2,000 MG/15 ML SYR IV SCH (21:02)
[2024-12-09 06:38] LABS: Basophils # (auto) 0.01 K/uL (0.00-0.20); Basophils % (auto) 0.1 %; Hematocrit (blood only) 32.5 % (42.0-52.0); Hemoglobin 10.8 g/dl (14.0-18.0); Immature Granulocytes # (auto) 0.15 K/uL (0.01-0.20); Immature Granulocytes % (auto) 1.4 %; Lymphocytes % (auto) 13.3 %; Mean Corpuscular Hemoglobin 31.4 pg (25.0-34.0); Mean Corpuscular Hgb Conc 33.2 g/dL (32.0-36.0); Mean Corpuscular Volume 94.5 fL (80.0-100.0); Mean Platelet Volume 9.5 fL (9.4-12.4); Monocytes # (auto) 0.54 K/uL (0.11-0.59); Monocytes % (auto) 5.1 %; Neutrophils % (auto) 80.1 %; Platelet Count 344 K/uL (130-400); RDW Coefficient of Variation 14.4 % (11.5-14.5); RDW Standard Deviation 49.3 fL (36.4-46.3); Red Blood Count 3.44 M/uL (4.70-6.10)
[2024-12-09 06:39] LABS: Albumin Globulin Ratio 1.1 (0.9-2); Albumin Level 3.5 gm/dl (3.4-5.0); Bilirubin,Total 0.6 mg/dl (0.2-1.0); Calcium 8.7 mg/dl (8.6-10.3); Creatinine Clr Calc Pharmacy 112.8 ml/min; Globulin 3.1 gm/dl (2.5-4.0); Potassium 4.7 mmol/L (3.5-5.1); Total Protein 6.6 gm/dl (6.0-8.3)
[2024-12-09] MEDS: LOSARTAN POTASSIUM 25 MG TAB PO SCH (08:43)
--- NOTE | 2024-12-09 11:53 | Infectious Disease Progress Nt ---
Date of Service December 09, 2024 Assessment & Plan (1) Infection of total left knee replacement: (2) On home oxygen therapy: (3) Leukocytosis: (4) Influenza A: Plan This is a 59-year-old man with a past medical history of chronic pain syndrome, chronic hypoxemic respiratory failure on 2L nasal cannula at night only, SAUL, CHF, COPD, DM 2, pulmonary hypertension, right TKA (05/2024), left TKA 11/06/24 who presented with cough and shortness of breath for 3 days associated with fevers and weakness. He also reported left knee pain after he slipped and fell on ice. His left knee and leg was swollen, tender and erythematous post fall. Denied incision dehiscence or drainage. Denies nausea, vomiting, abdominal pain, rash, numbness or tingling of the lower extremities. On admission- T36.5, pulse 123, O2 sats 95% on room air. Labs WBC 18.06, BUN 19, creatinine 1.12, ESR 66, CRP 20.24, procalcitonin 4.21. Influenza A+. COVID and RSV negative. MRSA nasal screen negative. XRAY LLE showed knee soft tissue fullness overlying the patella. Chest x-ray with no acute cardiopulmonary process. He was evaluated by orthopedics for large left knee effusion and underwent aspiration of the prepatellar bursa as well as knee joint fluid with greater than 100 K synovial WBC (86% polys). Joint fluid culture and periprosthetic culture positive for MSSA. Blood cultures positive for MSSA 3/ bottles. He underwent left total knee irrigation and debridement with poly exchange on 12/06/24. Intraoperative cultures obtained and also grew MSSA. He is currently on cefazolin. Repeat blood cultures NGTD. He is on oseltamivir. He has less cough and knee pain. ID consulted for antibiotic management. Microbiology Blood culture 12/04 3/ bottles positive for MSSA Left knee joint wound culture 12/05 MSSA Left knee periprosthetic bursa culture 12/05 MSSA Left knee OR culture 12/06 MSSA Blood culture 12/07 NGTD Antibiotics Cefepime 12/04 - 12/06 Vancomycin 12/04 - 12/06 Oseltamivir 12/04ongoing Cefazolin 12/06ongoing #High grade MSSA Bacteremia #MSSA Septic Left prosthetic knee joint infection #Leukocytosis, improving #Influenza A infection # Acute on chronic hypoxic respiratory failure. 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 TTE without valve vegatations or valvular abnormalities Would not start rifampin or place PICC line until blood cultures cleared for 48-72hours. He has a right TKA and cervical spine hardware but no signs of infection at the sites on exam. Repeat BC 12/07 NGTD Recommendations Complete 5 days of Oseltamivir Continue Cefazolin 2 g IVq 8 hours START rifampin 300 mg PO q12h as blood cultures are clear for > 48 hours. Plan for 6 weeks IV abx ( Cefazolin)PLUS oral rifampin 300 mg po q12h for MSSA bacteremia with MSSA Left knee PJI ( 12/07-01/18) followed by suppression( cefadroxil and rifampin) i/s/o retained L Knee hardware. Follow up repeat BCx 12/07 to ensure clearance On IV/p.o. antibiotics, obtain Weekly CBC with differential, BMP, LFTs Instruct patient that he may develop red-orange discoloration and tears, sweats, urine and feces. Monitor for DDI with rifampin Set up care with local ID Discussed with hospitalist ID will sign off. Please call with questions. . Alisson Bird MD, MPH Infectious Disease [facility], [facility] Call [phone] with questions Admission and Anticipated Discharge Date Admission Date: December 05, 2024 Subjective Subsequent visit was provided via telemedicine using two-way real-time interactive telecommunication between the patient and the telemedicine provider. For the duration of the visit, the provider was performing the assessment from a different facility than the patient. This includesuse of bluetooth stethoscope forauscultationperformed by the telepresenter that the telemedicine provider can hear if described in the physical exam. Scheduling Administrator contact information: Please call [facility] . (Phone Number For Physician Use Only) After establishing a telemedicine visit, patient was: Patient was verified with two unique identifiers Time Spent with Patient: Subsequent => 35 min Has less L knee pain On 2L Repeat BC 12/07 NGTD Pending PICC line Physical Exam Physical Exam: NAD Supple neck No cervical spine TTP Non labored breathing, On 2L LNC Soft , not tender, not distended abdomen RLE without edema. No R knee TTP or effusion. LLE in dressed post OR, hemovac drain with bloody drainage AAO times 3 Cooperative, normal mood Results & Data Vital Signs (Past 12 Hours) Vital Signs Temp Pulse Pulse Resp BP Pulse Ox O2 Del Method 12/09/24 11:39 94 H 20 92 Room Air 12/09/24 08:13 36.8 C 93 H 20 157/86 H 99 Room Air 12/09/24 07:30 96 H 20 92 Room Air 12/09/24 03:45 90 18 98 Nasal Cannula O2 Flow Rate 12/09/24 11:39 12/09/24 08:13 12/09/24 07:30 12/09/24 03:45 2 Laboratory Results Short CBC 12/09/24 Range/Units 05:46 WBC 10.50 (4.8-10.8) K/ul Hgb 10.8 L (14.0-18.0) g/dl Hct 32.5 L (42.0-52.0) % Plt Count 344 (130-400) K/uL BMP 12/09/24 05:46 Sodium 134 L Potassium 4.7 Chloride 98 Carbon Dioxide 29 BUN 27 H Creatinine 0.73 Glucose 161 H Calcium 8.7 Liver Function 12/09/24 Range/Units 05:46 Total Bilirubin 0.6 (0.2-1.0) mg/dl AST 29 (13-39) U/L ALT 71 H (7-52) U/L Alkaline Phosphatase 66 (34-104) U/L Albumin 3.5 (3.4-5.0) gm/dl Diagnostic Findings Microbiology 12/06/24 15:00 Knee,Left Gram Stain - Final 12/06/24 15:00 Knee,Left Aerobic and Anaerobic Culture - Preliminary Staphylococcus aureus 12/05/24 Unknown Knee,Left Gram Stain - Final 12/05/24 Unknown Knee,Left Aerobic and Anaerobic Culture - Preliminary Staphylococcus aureus 12/05/24 01:28 Knee,Left Gram Stain - Final 12/05/24 01:28 Knee,Left Aerobic and Anaerobic Culture - Preliminary Staphylococcus aureus 12/07/24 06:28 Blood Aerobic Blood Culture - Preliminary No growth in Aerobic bottle after 48 hours. 12/07/24 06:28 Blood Anaerobic Blood Culture - Preliminary No growth in Anaerobic bottle after 48 hours. 12/07/24 06:28 Blood Aerobic Blood Culture - Preliminary No growth in Aerobic bottle after 48 hours. 12/07/24 06:28 Blood Anaerobic Blood Culture - Preliminary No growth in Anaerobic bottle after 48 hours. 12/04/24 23:21 Blood Aerobic Blood Culture - Final Staphylococcus aureus 12/04/24 23:21 Blood Anaerobic Blood Culture - Final Staphylococcus aureus 12/04/24 23:35 Blood Aerobic Blood Culture - Preliminary No growth in Aerobic bottle after 48 hours. 12/04/24 23:35 Blood Anaerobic Blood Culture - Preliminary Staphylococcus aureus Medications Administered Home Medications Medication Instructions Recorded Confirmed Last Taken blood sugar diagnostic (OneTouch #100 ea 02/15/21 09/17/24 Unknown Verio test strips) lancets 33 gauge (OneTouch Delica #100 ea 02/15/21 09/17/24 Unknown Lancets) epinephrine 0.3 mg/0.3 mL 0.3 mg IM DIRECTED PRN Allergic 02/21/22 12/04/24 Unknown injection, auto-injector (EpiPen) Reaction ipratropium 0.5 mg-albuterol 3 mg 3 ml inhalation QID PRN Shortness 10/22/22 12/04/24 2 Days Ago (2.5 mg base)/3 mL nebulization Of Breath #180 mL ~06/10/24 soln Oxygen Home #1 ea 07/17/23 09/17/24 Unknown pantoprazole 40 mg tablet,delayed 40 mg PO BID PRN Acid Reflux 07/30/23 12/04/24 10 Days Ago release (Protonix) ~06/02/24 albuterol sulfate 90 mcg/actuation 2 puff inhalation Q4H PRN Wheezing 11/28/23 12/04/24 12/04/24 aerosol inhaler #8.5 grams Walking Cane #1 ea 12/06/23 09/17/24 Unknown atorvastatin 80 mg tablet (Lipitor) 80 mg PO HS #90 tabs 05/11/24 12/04/24 12/03/24 duloxetine 60 mg capsule,delayed 60 mg PO QAM 10/23/24 12/04/24 12/03/24 release (Cymbalta) gabapentin 300 mg capsule 900 mg PO TID 10/23/24 12/04/24 12/04/24 (Neurontin) olmesartan 5 mg tablet (Benicar) 5 mg PO QAM 10/23/24 12/04/24 12/03/24 fluticasone fur. 100 mcg-umeclid 1 inh inhalation QAM #60 ea 10/29/24 12/04/24 12/04/24 62.5 mcg-vilant 25 mcg inhalat.powder (Trelegy Ellipta) aspirin 81 mg tablet,delayed 81 mg PO BID 42 days #84 tabs 11/06/24 12/04/24 12/04/24 release ergocalciferol (vitamin D2) 1,250 50,000 unit PO WEEKLY 90 days #12 11/10/24 12/04/24 12/03/24 mcg (50,000 unit) capsule caps morphine 15 mg tablet,extended 15 mg PO Q12H #60 tabs 11/13/24 12/04/24 12/04/24 release oxycodone 5 mg tablet 5 mg PO Q6H PRN pain #30 tabs 11/30/24 12/04/24 12/03/24 oxycodone 15 mg tablet 15 mg PO Q6H #90 tabs 12/02/24 12/04/24 12/03/24 tamsulosin 0.4 mg capsule 0.4 mg PO HS 12/04/24 12/04/24 12/03/24 losartan 25 mg tablet 25 mg PO DAILY 30 days #30 tabs 12/09/24 Unknown rifampin 300 mg capsule 300 mg PO BID 6 weeks #84 caps 12/09/24 Unknown Active Medications Generic Name Dose Route Start Last Admin Trade Name Freq PRN Reason Stop Dose Admin Acetaminophen 1,000 mg 12/06/24 22:59 12/07/24 16:45 Acetaminophen 500 Mg Tab PO 01/05/25 22:58 1,000 mg Q8H PRN Administration Pain or Fever Albuterol 3 ml 12/05/24 03:00 12/09/24 15:16 Albut/Ipratrop 3mg/0.5mg Neb 3 Ml Vial NEB 01/04/25 02:59 3 ml Q4R ERIN Administration Protocol Aspirin 81 mg 12/05/24 09:00 12/09/24 08:51 Aspirin 81 Mg Ectab PO 01/04/25 08:59 81 mg BID ERIN Administration Atorvastatin Calcium 80 mg 12/05/24 21:00 12/08/24 20:50 Atorvastatin 40 Mg Tab PO 01/04/25 20:59 80 mg HS ERIN Administration Duloxetine HCl 60 mg 12/05/24 09:00 12/09/24 08:52 Duloxetine Hcl 60 Mg Cap PO 01/04/25 08:59 60 mg QAM ERIN Administration Fluticasone Furoate 1 puffs 12/05/24 09:00 12/09/24 08:43 Fluticasone Furoate 100mcg 14 Puffs/Inhaler INH 01/04/25 08:59 1 puffs DAILY ERIN Administration Gabapentin 900 mg 12/05/24 09:00 12/09/24 14:24 Gabapentin 300 Mg Cap PO 01/04/25 08:59 900 mg TID ERIN Administration Methylprednisolone 40 mg/ 0.64 mls @ 1.5 mls/min 12/05/24 09:00 12/09/24 08:50 Syringe IV 01/04/25 08:59 1.5 mls/min Q12H ERIN Administration Cefazolin Sodium 2,000 mg in 15 mls @ 3.75 mls/min 12/08/24 22:00 12/09/24 14:24 Ancef 2000mg IV 01/17/25 14:29 3.75 mls/min TID@0600,1400,2200 ERIN Administration Protocol Insulin Aspart 0 units 12/06/24 16:30 12/09/24 12:10 Insulin Aspart Per Unit Charge SC 01/05/25 06:29 10 units ACHS ERIN Administration Insulin Glargine 0 units 12/06/24 21:00 12/09/24 08:50 Lantus Per Unit Charge SC 01/05/25 20:59 8 units BID ERIN Administration Protocol Losartan Potassium 25 mg 12/08/24 15:55 12/09/24 08:43 Losartan Potassium 25 Mg Tab PO 01/04/25 08:59 25 mg QAM ERIN Administration Melatonin 3 mg 12/05/24 02:07 12/06/24 20:39 Melatonin 3 Mg Tab PO 01/04/25 02:06 3 mg HS PRN Administration Insomnia Morphine Sulfate 4 mg 12/05/24 01:20 12/09/24 14:30 Morphine Sulfate 4 Mg/Ml 1 Ml Carp\Vial IV 12/19/24 01:19 4 mg Q3H PRN Administration Pain (6,7,8,9,10) Oxycodone HCl 5 mg 12/06/24 22:36 12/09/24 13:00 Oxycodone Hcl Ir 5 Mg Tab (Immediate Release) PO 12/20/24 22:35 5 mg Q4H PRN Administration Pain Pantoprazole Sodium 40 mg 12/05/24 02:07 12/05/24 09:20 Pantoprazole 40 Mg Tab PO 01/04/25 02:06 40 mg BID PRN Administration Acid Reflux Tamsulosin HCl 0.4 mg 12/05/24 21:00 12/08/24 20:52 Tamsulosin Hcl 0.4 Mg Cap PO 01/04/25 20:59 0.4 mg HS ERIN Administration Umeclidinium/Vilanterol 1 puffs 12/05/24 09:00 12/09/24 08:43 Umeclidinium/Vilanterol 62.5/25mcg 7 Puffs/Inhaler INH 01/04/25 08:59 1 puffs DAILY ERIN Administration (3) Leukocytosis Leukocytosis type: unspecified Qualified Code(s): D72.829 - Elevated white blood cell count, unspecified
--- NOTE | 2024-12-09 13:12 | Discharge Summary ---
Date of Service December 09, 2024 Admission HPI Per Admitting Provider 59-year-old male PMHx chronic pain syndrome, renal insufficiency chronic hypoxemic respiratory failure, SAUL, HTN, CHF, COPD, pulmonary hypertension, and T2DM presenting for generalized illness. Reports recent SOB and cough x 3 days [employer]. States that his cough is nonproductive but that his chest feels congested. Also reports that he has had increased wheezing. Admits to a fever on the day of arrival with Tmax 103F, no chills. Also having associated SOB, 2L O2 via NC at night only which he has increased to 3L given his recent SOB. Patient has had generalized weakness starting 3 days [employer], but no syncope or dizziness. The night prior to arrival, patient did have a fall onto his L knee which was a recent replacement after he slipped on ice. States that he is able to ambulate on the knee but it causes pain in that leg. Leg is very erythematous and edematous following the fall, but no blood or oozing from site. States that his sick contacts include his and son who were sick in the past week. Overall denying chest pain, abdominal pain, N/V/D/C, numbness/tingling, LUTS, or URI symptoms. ED evaluation reveals CBC with leukocytosis 18.06, H&H 12.2/37.7, sodium 133, glucose 127, and alkaline phosphatase 107. Procalcitonin 4.21; BioFire positive influenza A. CXR no acute findings L knee XR soft tissue fullness over patella, left TKA, no acute findings. EKG sinus tach at rate of [address] García's attestation for adjustments/additions to treatment plan. Admission Exam Per Admitting Provider GENERAL: Sitting up in bed, alert, well appearing, well nourished, no distress, non-toxic EYE EXAM: normal conjunctiva. PERRL and EOM's grossly intact. OROPHARYNX: no exudate, no erythema, lips, buccal mucosa, and tongue normal and mucous membranes are moist NECK: supple, no nuchal rigidity, no adenopathy, non-tender LUNGS: Clear to auscultation. Normal chest wall mechanics HEART: no murmurs, S1 normal and S2 normal ABDOMEN: abdomen soft, non-tender, normo-active bowel sounds, no masses, no rebound or guarding. UPPER EXTREMITIES: upper extremities are grossly normal. LOWER EXTREMITIES: No pain with flexion extension of the left hip. Left knee held in slight flexion. Incision is clean and dry. Prepatellar effusion present. Does have some overlying redness. DP and PT 2 out of 4. Gross station intact. No tenderness throughout the mid or distal tib-fib or ankle foot. NEURO EXAM: Normal sensorium, cranial nerves II-XII grossly intact, normal speech, no gross weakness of arms, no gross weakness of legs. Principal Diagnosis 1.Acute Exacerbation of COPD due to Influenza A 2. Staphylococcus Aureus Bacteremia 3 Left Total Knee Irrigation and Debridement with Poly exchange for Periprosthetic Knee Infection Discharge Exam Constitutional: WD/WN, vitals as above well developed; no acute distress Eyes: PERRL, conjunctivae normal, anicteric sclerae ENMT: external ear and nose normal, oropharynx normal Ears: no hearing impairment Neck: trachea midline, no thyromegaly trachea midline Respiratory: normal respiratory effort, lungs clear to auscultation normal respiratory effort and + respiratory distress; no labored breathing and no retractions Auscultation: lungs clear to auscultation bilaterally and + wheezes ( Right lung) Cardiovascular: RRR, no murmur, no edema Rate/Rhythm: regular rate and regular rhythm Chest (Breasts): normal inspection/palpation of breasts Chest: normal inspection of chest Musculoskeletal: Knee: + effusion, + surgical incision (well healing, erythema around surgical incision) and + joint line tenderness Discharge Data Allergies Allergy/AdvReac Type Severity Reaction Status Date / Time naproxen Allergy Intermediate Severe Rash Verified 12/04/24 23:52 bee venom protein (honey bee) AdvReac Severe Syncope Verified 12/04/24 23:52 tramadol AdvReac Intermediate Gastrointestinal Verified 12/04/24 23:52 Upset Consultations 12/05/24 00:32 ED Decision to Admit Stat 12/07/24 11:30 Consult Infectious Diseases Routine Procedures Performed Operation Date: 12/06/24 14:00 Actual Procedures p Left Total Knee Irrigation and Debridement(Left) - Trung Fernandez DO Hospital Course (1) Infection of total left knee replacement: (2) Influenza A: (3) Greater trochanteric bursitis of both hips: (4) Dyslipidemia: (5) Chronic diastolic CHF (congestive heart failure): (6) DM II (diabetes mellitus, type II), controlled: (7) SAUL (obstructive sleep apnea): (8) Back pain: (9) Anaphylactic reaction: Liz Meet Lindsay is a 59 Y O Male with PMH of CAD, COPD, Pulmonary Hypertension , CHF, Dyslipidemia, DM II, Hypertension, Obstructive Sleep Apnea and Left total Knee Arthroplasty presented to ER with upper respiratory tract symptoms with intermittent fever. He fell on ice into his left knee and had swelling following this.Denies trauma to other body parts and loss of consciousness. (1)Acute exacerbation of COPD secondary to Influenza A -Symptoms of SOB, nonproductive cough, and fever x 3 days. Symptoms are better than last few days. - Recent exposure to 2 family member - BioFire positive influenza A - Procalcitonin: 4.21; CXR without acute findings. - WBC: 18.38> 15.62 - 2L O2 via NC at bedtime his baseline which she has increased since being sick to 3L, none with activity or during daytime - Currently O2 Sat 95 on 2L/min. - Under Tamiflu 75 mg Po BID - DuoNeb 3ml Neb Q4Hr; Arnuity Ellipta 1 puff inhalation daily;Anoro Ellipta 1 puff inhalation daily -IV Solumedrol 40 mg BID (2)Staphylococcus Aureus Bacteremia -Blood culture show Gram Positive cocci in clusters . Staph aureus sensitive to Methicillin. - Left Knee culture is positive for Staphylococcus Aureus -Nasal MRSA: Negative -Stop Vancomycin and Cefepime -Switch to Cefazolin. Continue Cefazolin IV for 6wks and oral Rifampin once the infection is clear -Repeat Blood Culture Today. Reports Pending -WBC : 18.38>15.62 - Echocardiogram today to rule out endocarditis: Echo revealed No valvular Vegetations identified,no significant valvular pathology Normal left Ventricular Systolic Function, No regional wall motion abnormalities, mild concentric left ventricular Hypertrophy, Left Ventricular Ejection Fraction of 60 to 65%. -Infectious Disease Consultation. As per ID consultation Continue cefazolin IV for 6 wks and Oral Rifampin once infection is clear. Donot place PICC until BC clear for 48-72 hours. -PICC line established. -Discharge home today.. (3)Left total knee Irrigation and Debridement with Poly exchange for periprosthetic knee infection - Procedure yesterday at 14:00. According to ortho note, there was a large amount of purulent discharge that came out of the wound. The knee was grossly infected. - Pain and swelling on left knee after mechanical fall -Recent arthroplasty on 11/07/2024 secondary to advanced arthritis of left knee and failure of conservative treatment. Following with Dr. Fernandez -Under Multiple medication for pain management at home included Gabapentin, Duloxetine, Oxycodone and Morphine -Left Knee Xray(12/06): suggests soft tissue fullness overlying the patella, no acute findings or fractures - Pain regimen as ordered- morphine; Oxycodone and Tylenol; Continue home Gabapentin and Duloxetine (3)Hyponatremia Resolved - On presentation Na : 133 -Repeat: 140 (4)T2DM -H/o DMT2, home regimen metformin - Most recent A1C (05/06)- 6.3% - SSI with target BSG range 110-140mg/dL, - BSG ACHS - Pharm glycemic management consult placed, appreciate assistance-adjust regimen as needed (5) Tobacco consumer -Patient consumes around 1 pack/ day starting from age 19 (6) Hypertension -Olmesartan 5mg PO at home - Stopped Metoprolol since December 2023 -BP elevated to the range of 180/90. May be due to pain -Losartan increased from 12.5 to 25 Chronic Condition #GERD/gastric ulcer/duodenitis- Pantoprazole #SAUL- Does not tolerate cpap; 2L O2 via NC at baseline #Anemia- Prior B12 and folate deficiency, receives monthly B12 injections and takes oral B12- H/H 12.2/37.7 at admission; repeat CBC am, Vitamin B12: Normal; Folate: 5.31 #HLD- Atorvastatin #BPH- Tamsulosin Total Time Total Time Spent Total Time Spent (In Minutes): 50 % of patient care. Discharge Plan Discharge Items Patient Disposition: Home - Home Health Services Reason For Visit: INFLUENZA A, L KNEE INJURY Discharge Diagnosis: 1. Acute Exacerbation Of COPD due to Influenza 2. Staphylococcus Aureus Bacteremia 3.Left total Knee Irrigation and Debridement with Poly exchange for periprosthetic knee infection Activity: Per Instructions section Weightbearing: Left non-weightbearing Non-emergency contact: Primary Care Provider Call non-emergency contact if: you have any medication questions Follow-up/Referrals: Mansoor Zhao MD [Primary Care Provider] - 12/16/24 11:00 am (Please schedule hospital discharge follow up appointment within 1-2 weeks) Diet: Regular Addtl Attending Provider Instructions: You presented to ER with Upper Respiratory Tract Symptoms and Intermittent fever along with knee pain after you fell on ice onto your left knee. Your test for Influenza A was positive. You were started on Tamiflu two times a day for Flu. Your respiratory symptoms started getting better since the day you presented to hospital. Your blood culture was positive for Staphylococcus Aureus. You were started on Antibiotics Cefazolin intravenous and Rifampin PO which need to continue for 6 weeks. Also, your Blood Pressure was elevated while in the hospital. We feel you are stable to go back with home nurse setup for intravenous antibiotics and PICC line. Follow-up appointments: Make a follow-up appointment with your PCP within the next week. It is very important that you follow up with them shortly after discharge from the hospital. We need to repeat CBC and CMP every week Keep all your follow-up appointments as already scheduled. If you cannot make an appointment, notify your provider. Medications: Your medication list has been reviewed and reconciled upon discharge to ensure accuracy and continuity of care. An updated list of all your medications is included with [facility] hospital discharge paperwork. Please review this list closely, and make note of any changes. - We sent a new medication called Rifampin to your pharmacy. Take Rifampin 300 mg BID for 6 weeks -We sent a new medication called Losartan to your pharmacy for Hypertension. Take Losartan 25 mg daily every AM . -Provided you with a prescription for Cephazolin for 6 weeks. If you have any issues filling these prescriptions, please call [phone] and ask to leave a message for Dr. Osman Jhaveri Take your medications as instructed; do not skip a dose of your medicines. Make sure all of your doctors know every medicine you are taking (including [id number] medicines, vitamins, and supplements). Call your primary care provider before taking any new medicines (including overthe- counter medicines, vitamins, and supplements), because some of these may interact with your current medications, or may make your symptoms worse. Tell your primary care provider if you cannot afford your medications. CONTACT YOUR PRIMARY CARE PROVIDER if you experience any of the following: Increased Shortness of Breath Chest Pain Infection in the site of Catheter Difficulty following your treatment plan, or difficulty taking medications CALL 911 OR GO TO THE EMERGENCY DEPARTMENT if you experience any of the following: Sudden, severe abdominal pain or nausea/vomiting Severe chest pain, or chest pain that radiates (moves) to your jaw or arm Sudden, severe shortness of breath or difficulty breathing Thank you for allowing us to participate in your care. . Pending Studies at Discharge: No Stand-Alone Forms: [facility], Smoking Cessation Medications and DC Order Prescriptions: New rifampin 300 mg Capsule 300 mg PO BID 42 Days Qty: 84 0RF losartan 25 mg tablet 25 mg PO DAILY 30 Days Qty: 30 0RF Continued albuterol sulfate 90 mcg/actuation HFA aerosol inhaler 2 puff INHALATION Q4H PRN (Reason: Wheezing) Qty: 8.5 11RF ergocalciferol (vitamin D2) 1,250 mcg (50,000 unit) capsule 50,000 unit PO WEEKLY 90 Days Qty: 12 1RF Rx Instructions: morphine 15 mg tablet extended release 15 mg PO Q12H Qty: 60 0RF oxycodone 15 mg tablet 15 mg PO Q6H Qty: 90 0RF (DME) Oxygen Home Liters Per Minute See Rx Instructions .Route Qty: 1 0RF Rx Instructions: 2L at HS and portable O2 with ambulation ipratropium-albuterol 0.5 mg-3 mg(2.5 mg base)/3 mL solution for nebulization 3 ml Inhalation QID PRN (Reason: Shortness Of Breath) Qty: 180 3RF Trelegy Ellipta 100-62.5-25 mcg blister with device 1 inh inhalation QAM Qty: 60 11RF (DME) Walking Cane Misc See Rx Instructions .Route Qty: 1 0RF Rx Instructions: As directed (DME) OneTouch Verio test strips Strip See Rx Instructions .ROUTE .MEDSUPPLY Qty: 100 1RF Rx Instructions: As directed - check sugars 1x each day. (DME) lancets [OneTouch Delica Lancets] 33 gauge misc See Rx Instructions .ROUTE .MEDSUPPLY Qty: 100 1RF Rx Instructions: As directed - check blood sugars 1x daily. epinephrine [EpiPen] 0.3 mg/0.3 mL auto-injector 0.3 mg IM DIRECTED PRN (Reason: Allergic Reaction) pantoprazole [Protonix] 40 mg tablet,delayed release (DR/EC) 40 mg PO BID PRN (Reason: Acid Reflux) gabapentin [Neurontin] 300 mg capsule 900 mg PO TID duloxetine [Cymbalta] 60 mg capsule,delayed release(DR/EC) 60 mg PO QAM aspirin 81 mg Tablet,Delayed Release (Dr/Ec) 81 mg PO BID 42 Days Qty: 84 0RF atorvastatin [Lipitor] 80 mg tablet 80 mg PO HS Qty: 90 3RF tamsulosin 0.4 mg capsule 0.4 mg PO HS Discontinued olmesartan [Benicar] 5 mg tablet 5 mg PO QAM No Action oxycodone 5 mg tablet 5 mg PO Q6H PRN (Reason: pain) Qty: 30 0RF Rx Instructions: for breakthrough pain Discharge Orders: Discharge Order (Routine); Ordered 12/10/24 Ordered By: Osman Jhaveri Admission Data Admit Date/Time: 12/05/24 00:59 Attending Provider: Prashant Dennis Admit Provider: Johny García Primary Care Provider: Mansoor Zhao Other Providers: Johny García; Niecy,Fax; [facility] Fax; Naya Agrawal; Malgorzata Leo; Kaila Felipe; Alisson Bird; Charmaine Hogue; Marcia Gary Other Interventions: Discharge Summary Assessment (RN) Last Done: 12/10/24 10:26 Supervising Physician Co-Signing Physician Notes I personally examined the patient and verified all ralph points of history and exam, discussed case, and agree with decision making with Dr Jhaveri doing well would like to go home vitals noted nad heent nc at mmm breathing unlabored no accessory muscles good effort skin no rashes no pallor or icterus IMPRESSION & PLAN sepsis POA due to staph bacteremia and influenza Influenza A hyponatremia left knee injury/joint infection and MSSA bacteremia Left Total Knee Irrigation and Debridement with poly exchange treated with Tamiflu and Solu-Medrol for influenza A with underlying history of COPD; supplemental oxygen as needed repeat blood cultures/TTE reassuring for endocarditis Continue Ancef/rifampin; appreciate ID input doing better - discharge planning // prolonged abx - outpt PCP and ortho f/u otherwise as above Resident Activity Tracking Resident Involvement: Resident Care Provided Care Provided: Adult Hospital Medicine
--- NOTE | 2024-12-09 16:28 | Billing Data ---
Date of Service December 09, 2024 Coding Level of Care Code 37294 SUB INP/OBS CARE MIN
--- NOTE | 2024-12-09 17:07 | Hospitalist Progress Note ---
Date of Service December 09, 2024 Assessment & Plan (1) Infection of total left knee replacement: (2) Influenza A: (3) Greater trochanteric bursitis of both hips: (4) Dyslipidemia: (5) Chronic diastolic CHF (congestive heart failure): (6) DM II (diabetes mellitus, type II), controlled: (7) SAUL (obstructive sleep apnea): (8) Back pain: (9) Anaphylactic reaction: Plan Meet Lindsay is a 59 Y O Male with PMH of CAD, COPD, Pulmonary Hypertension , CHF, Dyslipidemia, DM II, Hypertension, Obstructive Sleep Apnea and Left total Knee Arthroplasty presented to ER with upper respiratory tract symptoms with intermittent fever. He fell on ice into his left knee and had swelling following this.Denies trauma to other body parts and loss of consciousness. (1)Acute exacerbation of COPD secondary to Influenza A -Symptoms of SOB, nonproductive cough, and fever x 3 days. Symptoms are better than last few days. - Recent exposure to 2 family member - BioFire positive influenza A - Procalcitonin: 4.21; CXR without acute findings. - WBC: 18.38> 15.62 - 2L O2 via NC at bedtime his baseline which she has increased since being sick to 3L, none with activity or during daytime - Currently O2 Sat 95 on 2L/min. -Tamiflu: Completed - DuoNeb 3ml Neb Q4Hr; Arnuity Ellipta 1 puff inhalation daily;Anoro Ellipta 1 puff inhalation daily -MethylPred 40 Mg IV BID for 5 days - (2)Staphylococcus Aureus Bacteremia -Blood culture show Gram Positive cocci in clusters . Staph aureus sensitive to Methicillin. - Left Knee culture is positive for Staphylococcus Aureus -Nasal MRSA: Negative -Stop Vancomycin and Cefepime -Switch to Cefazolin. Continue Cefazolin IV for 6wks and oral Rifampin once the infection is clear -Repeat Blood Culture Today. Reports Pending -WBC : 18.38>15.62 - Echocardiogram today to rule out endocarditis: Echo revealed No valvular Vegetations identified,no significant valvular pathology Normal left Ventricular Systolic Function, No regional wall motion abnormalities, mild concentric left ventricular Hypertrophy, Left Ventricular Ejection Fraction of 60 to 65%. -Infectious Disease Consultation. As per ID consultation Continue cefazolin IV for 6 wks and Oral Rifampin once infection is clear. Donot place PICC until BC clear for 48-72 hours. --Blood Culture: No growth of organism after 48 hr -Established PICC line today -Plan was to discharge today -Hopefully discharge back home tomorrow. (3)Left total knee Irrigation and Debridement with Poly exchange for periprosthetic knee infection - Procedure yesterday at 14:00. Acco to ortho note, there was a large amount of purulent discharge that came out of the wound. The knee was grossly infected. - Pain and swelling on left knee after mechanical fall -Recent arthroplasty on 11/07/2024 secondary to advanced arthritis of left knee and failure of conservative treatment. Following with Dr. Fernandez -Under Multiple medication for pain management at home included Gabapentin, Duloxetine, Oxycodone and Morphine -Left Knee Xray(12/06): suggests soft tissue fullness overlying the patella, no acute findings or fractures - Pain regimen as ordered- morphine; Oxycodone and Tylenol; Continue home Gabapentin and Duloxetine (3)Hyponatremia Resolved - On presentation Na : 133 -Repeat: 140 (4)T2DM -H/o DMT2, home regimen metformin - Most recent A1C (05/06)- 6.3% - SSI with target BSG range 110-140mg/dL, - BSG ACHS - Pharm glycemic management consult placed, appreciate assistance-adjust regimen as needed (5) Tobacco consumer -Patient consumes around 1 pack/ day starting from age 19 (6) Hypertension -Olmesartan 5mg PO at home - Stopped Metoprolol since December 2023 -BP elevated to the range of 180/90. May be due to pain -Losartan increased from 12.5 to 25 Chronic Condition #GERD/gastric ulcer/duodenitis- Pantoprazole #SAUL- Does not tolerate cpap; 2L O2 via NC at baseline #Anemia- Prior B12 and folate deficiency, receives monthly B12 injections and takes oral B12- H/H 12.2/37.7 at admission; repeat CBC am, Vitamin B12: Normal; Folate: 5.31 #HLD- Atorvastatin #BPH- Tamsulosin Code: Full Code VTE prophylaxis: TEDs, SCD and Aspirin 81mg BID Dispo: Med/Surg Admission and Anticipated Discharge Date Admission Date: December 05, 2024 Supervising Physician Co-Signing Physician Notes I personally examined the patient and verified all ralph points of history and exam, discussed case, and agree with decision making with Dr Jhaveri doing well would like to go home vitals noted nad heent nc at mmm breathing unlabored no accessory muscles good effort skin no rashes no pallor or icterus IMPRESSION & PLAN sepsis POA due to staph bacteremia and influenza Influenza A hyponatremia left knee injury/joint infection and MSSA bacteremia Left Total Knee Irrigation and Debridement with poly exchange treated with Tamiflu and Solu-Medrol for influenza A with underlying history of COPD; supplemental oxygen as needed repeat blood cultures/TTE reassuring for endocarditis Continue Ancef/rifampin; appreciate ID input doing better - discharge planning // prolonged abx - outpt PCP and ortho f/u otherwise as above Subjective Meet Lindsay is a 59 Y O Male with PMH of CAD, COPD, Pulmonary Hypertension , CHF, Dyslipidemia, DM II, Hypertension, Obstructive Sleep Apnea and Left total Knee Arthroplasty presented to ER with upper respiratory tract symptoms with intermittent fever. He fell on ice into his left knee and had swelling following this. Denies trauma to other body parts and loss of consciousness. Overnight events: Patient mentioned he didn't sleep well. He usually sleeps 2 hour every night. Ongoing symptoms: He mentioned his knee pain is getting a lot betterbetter. He was able to move for a while in the room.Upper respiratory infections are better as compared in the last few days . Denies fever, sweats , headache and abdominal pain.Has chronic pain in the back. New concerns: No any Review of Systems Review of Systems: As per HPI Physical Exam Physical Exam: Constitutional: WD/WN, vitals as a homa well develop ed; no acute distr ess Eyes: PERRL, conjunctiva e normal, anicteri c sclerae ENMT: external ear and n ose normal, oropha rynx normal Ears: no hearing impair ment Neck: trachea midline, n o thyromegaly tra river midline Respiratory: normal respiratory effort, lungs florencio ar to auscultation normal respirato ry effort and + re spiratory distress ; no labored breat lucie and no retrac tions Auscultatio n: lungs clear to auscultation bilat erally and + wheez es ( Right lung) Cardiovascular: RRR, no murmur, no edema Rate/Rhyth m: regular rate an d regular rhythm Chest (Breasts): normal inspection/ palpation of breas ts Chest: normal inspection of ches t Musculoskeletal: Knee: + effusion, + surgical incisio n (well healing, erythema around mcgowan rgical incision) a nd + joint line te nderness Constitutional: WD/WN, vitals as above well developed; no acute distress Eyes: PERRL, conjunctivae normal, anicteric sclerae ENMT: external ear and nose normal, oropharynx normal Ears: no hearing impairment Neck: trachea midline, no thyromegaly trachea midline Respiratory: normal respiratory effort, lungs clear to auscultation normal respiratory effort and + respiratory distress; no labored breathing and no retractions Auscultation: lungs clear to auscultation bilaterally and + wheezes ( Right lung) Cardiovascular: RRR, no murmur, no edema Rate/Rhythm: regular rate and regular rhythm Chest (Breasts): normal inspection/palpation of breasts Chest: normal inspection of chest Musculoskeletal: Knee: + effusion, + surgical incision (well healing, erythema around surgical incision) and + joint line tenderness Results & Data Results & Data Vital Signs (Past 12 Hours) Vital Signs Temp Pulse Pulse Resp BP Pulse Ox O2 Del Method 12/09/24 16:31 36.6 C 95 H 18 167/100 H 95 Room Air 12/09/24 15:16 90 20 93 12/09/24 11:39 94 H 20 92 Room Air 12/09/24 11:20 36.7 C 109 H 20 176/97 H 93 Room Air 12/09/24 08:13 36.8 C 93 H 20 157/86 H 99 Room Air 12/09/24 07:30 96 H 20 92 Room Air
[2024-12-09] MEDS: rifAMPin 300 MG CAPSULE PO SCH (21:12)
[2024-12-10 07:31] VITALS: RESP 21; TEMP 97.7; O2SAT 99
[2024-12-10 10:28] VITALS: BP 183/93; PULSE 109
--- NOTE | 2024-12-10 18:04 | Billing Data ---
Date of Service December 10, 2024 Coding Level of Care Code 45249 IN/OBS DISCH 30 MIN/LESS
== END 2024-12-10 10:50 | disposition home health service (06) | DRG 463 ==
LOC: ED 20:05 → EDINP 12-05 00:59 → SUATTDRO 12-05 00:59 → 3E 12-05 02:08